=== PATIENT | female | born 1930 | race Caucasian/White ===

== ENCOUNTER 2016-07-02 12:32 | Emergency (ER) | payer MEDICARE, MEDICAID ==
--- NOTE | 2016-07-02 12:48 | ER Document Report ---
ED Medical Screen (RME) - General Stated Complaint: PAIN ALL OVER Notes: 86 yo female c/o pain all over body since last night. pt has hx/o oseoarthritis and postherpatic neuroalgia. pt is on pain management with [facility] pain management. Pt presently on Nucynta for pain. TRAVEL OUTSIDE OF THE [place] IN LAST 30 DAYS: No - Related Data Allergies/Adverse Reactions: codeine [Codeine] Allergy (Severe, Verified 09/21/13 02:56) headache Sulfa (Sulfonamide Antibiotics) Allergy (Verified 09/21/13 02:56) itching Past Medical History - Past Medical History Cardiac Medical History: Reports: Hx Congestive Heart Failure, Hx Coronary Artery Disease, Hx Heart Attack, Hx Hypercholesterolemia, Hx Hypertension Denies: Hx Atrial Fibrillation, Hx Peripheral Vascular Disease, Hx Pulmonary Embolism, Hx Heart Murmur Pulmonary Medical History: Reports: Hx Asthma, Hx Bronchitis, Hx COPD, Hx Pneumonia, Hx Sleep Apnea Denies: Hx Respiratory Failure, Hx Tuberculosis Neurological Medical History: Denies: Hx Cerebrovascular Accident, Hx Seizures Endocrine Medical History: Reports: Hx Diabetes Mellitus Type 2, Hx Hyperthyroidism, Hx Hypothyroidism. Denies: Hx Graves' Disease Renal/ Medical History: Reports: Hx Kidney Stones. Denies: Hx End Stage Renal Disease, Hx Ovarian Cysts, Hx Peritoneal Dialysis, Hx Pelvic Inflammatory Disease Malignancy Medical History: Reports: Hx Breast Cancer. Denies: Hx Cervical Cancer, Hx Leukemia, Hx Lung Cancer, Hx Ovarian Cancer GI Medical History: Reports: Hx Gastroesophageal Reflux Disease. Denies: Hx Crohn's Disease, Hx Hiatal Hernia, Hx Irritable Bowel, Hx Liver Failure, Hx Ulcer Musculoskeltal Medical History: Reports Hx Arthritis, Denies Hx Fibromyalgia, Denies Hx Multiple Sclerosis, Denies Hx Muscular Dystrophy, Reports Hx Musculoskeletal Deformity, Reports Hx Musculoskeletal Trauma Psychiatric Medical History: Reports: Hx Bipolar Disorder, Hx Depression Denies: Hx Dementia, Hx Post Traumatic Stress Disorder, Hx Schizophrenia Traumatic Medical History: Reports: Hx Fractures - right leg(small break) Infectious Medical History: Denies: Hx HIV Past Surgical History: Reports: Hx Adenoidectomy, Hx Appendectomy, Hx Cardiac Catheterization, Hx Cardiac Surgery - Double Bypass, Hx Cholecystectomy, Hx Coronary Artery Bypass Graft - 1996, Hx Hysterectomy, Hx Mastectomy - rt 1994, Hx Orthopedic Surgery - Right Hip replacement, bilateral knee replacements, Hx Tonsillectomy. Denies: Hx Bowel Surgery, Hx Section, Hx Colostomy, Hx Gastric Bypass Surgery, Hx Herniorrhaphy, Hx Pacemaker, Hx Tubal Ligation - Immunizations Immunizations up to date: Yes Hx Diphtheria, Pertussis, Tetanus Vaccination: Yes
[2016-07-02] MEDS ORDERED: PREDNISONE 20 MG TABLET PO ONE (13:34)
--- NOTE | 2016-07-02 13:39 | ER Document Report ---
ED General - General Chief Complaint: Pain All Over Stated Complaint: PAIN ALL OVER Time seen by provider: 13:35 Mode of Arrival: Ambulatory Information source: Patient Notes: 86-year-old female who complains of initially about "pain all over" per further questioning states that she's having chronic discomfort in her right shoulder and burning pain in the left arm which is typical for her postherpetic neuralgia. He reports she's been trying to get off OxyContin and is now seeing [facility] pain management Jered who has prescribed Nucynta the patient says she's been taking that every 6 hours as prescribed. The patient reports chronic cough occasional rattling in her chest which she says is not worse than her baseline. She denies fever, chills, nausea, vomiting, chest pain, abdominal pain, back pain, or syncope. She reports chronic swelling to extremities. She reports poor appetite recently. He reports she has a nebulizer machine at home that she has been using without problems Physical Exam: General: Alert, appears well. HEENT: Normocephalic. Atraumatic. PERRLA. Extraocular movements intact. Oropharynx clear. Neck: Supple. Non-tender. No JVD Respiratory: No respiratory distress. Scattered rhonchi bilaterally breath sounds equal. Cardiovascular: Regular rate and rhythm. Abdominal: Normal Inspection. Soft, non-tender. No distension. Normal Bowel Sounds. Back: Non-tender. No deformity or step off. Extremities: Moves all four extremities. Minimal discomfort to palpation diffusely in the right shoulder prescriptions good active range of motion without increase in discomfort. Left upper extremity only is exquisitely tender to even very light touch on the inner aspect of the upper and lower arm which patient reports typical for her postherpetic neuralgia. No gross deformity is noted that extremity and she is able to move and use it without increased discomfort Neurological: Speech clear mentation clear answers questions appropriately moves all 4 extremities with equal motor function Psychological: Normal affect. Normal Mood. Skin: Warm. Dry. Normal color.am TRAVEL OUTSIDE OF THE [place] IN LAST 30 DAYS: No - Related Data Allergies/Adverse Reactions: codeine [Codeine] Allergy (Severe, Verified 07/02/16 12:47) headache Sulfa (Sulfonamide Antibiotics) Allergy (Verified 07/02/16 12:47) itching Past Medical History - Social History Smoking Status: Never Smoker Chew tobacco use (# tins/day): No Frequency of alcohol use: None Drug Abuse: None Family History: CAD, CVA, DM, Hyperlipidemia, Hypertension Patient has suicidal ideation: No Patient has homicidal ideation: No - Past Medical History Cardiac Medical History: Reports: Hx Congestive Heart Failure, Hx Coronary Artery Disease, Hx Heart Attack, Hx Hypercholesterolemia, Hx Hypertension Denies: Hx Atrial Fibrillation, Hx Peripheral Vascular Disease, Hx Pulmonary Embolism, Hx Heart Murmur Pulmonary Medical History: Reports: Hx Asthma, Hx Bronchitis, Hx COPD, Hx Pneumonia, Hx Sleep Apnea Denies: Hx Respiratory Failure, Hx Tuberculosis Neurological Medical History: Denies: Hx Cerebrovascular Accident, Hx Seizures Endocrine Medical History: Reports: Hx Diabetes Mellitus Type 2, Hx Hyperthyroidism, Hx Hypothyroidism. Denies: Hx Graves' Disease Renal/ Medical History: Reports: Hx Kidney Stones. Denies: Hx End Stage Renal Disease, Hx Ovarian Cysts, Hx Peritoneal Dialysis, Hx Pelvic Inflammatory Disease Malignancy Medical History: Reports: Hx Breast Cancer. Denies: Hx Cervical Cancer, Hx Leukemia, Hx Lung Cancer, Hx Ovarian Cancer GI Medical History: Reports: Hx Gastroesophageal Reflux Disease. Denies: Hx Crohn's Disease, Hx Hiatal Hernia, Hx Irritable Bowel, Hx Liver Failure, Hx Ulcer Musculoskeltal Medical History: Reports Hx Arthritis, Denies Hx Fibromyalgia, Denies Hx Multiple Sclerosis, Denies Hx Muscular Dystrophy, Reports Hx Musculoskeletal Deformity, Reports Hx Musculoskeletal Trauma Psychiatric Medical History: Reports: Hx Bipolar Disorder, Hx Depression Denies: Hx Dementia, Hx Post Traumatic Stress Disorder, Hx Schizophrenia Traumatic Medical History: Reports: Hx Fractures - right leg(small break) Infectious Medical History: Denies: Hx HIV Past Surgical History: Reports: Hx Adenoidectomy, Hx Appendectomy, Hx Cardiac Catheterization, Hx Cardiac Surgery - Double Bypass, Hx Cholecystectomy, Hx Coronary Artery Bypass Graft - 1996, Hx Hysterectomy, Hx Mastectomy - rt 1994, Hx Orthopedic Surgery - Right Hip replacement, bilateral knee replacements, Hx Tonsillectomy. Denies: Hx Bowel Surgery, Hx Section, Hx Colostomy, Hx Gastric Bypass Surgery, Hx Herniorrhaphy, Hx Pacemaker, Hx Tubal Ligation - Immunizations Immunizations up to date: Yes Hx Diphtheria, Pertussis, Tetanus Vaccination: Yes Hx Pneumococcal Vaccination: 09/07/11 Review of Systems - Review of Systems Constitutional: See HPI EENT: denies: Ear pain, Throat pain Cardiovascular: See HPI Respiratory: See HPI Gastrointestinal: See HPI Genitourinary: denies: Burning, Dysuria Musculoskeletal: denies: Back pain Hematologic/Lymphatic: denies: Swollen glands Neurological/Psychological: denies: Weakness, Numbness Physical Exam - Vital signs Vitals: Temp Pulse Resp BP Pulse Ox 98.1 F 66 20 109/57 L 95 07/02/16 12:45 07/02/16 12:45 07/02/16 12:45 07/02/16 12:45 07/02/16 12:45 Course - Re-evaluation Re-evalutation: 07/02/16 14:30 Patient remains stable with no change in respiratory status and does report her arm feels somewhat better now. I believe she would benefit from a steroid Dosepak not only for her and will rest for difficulty but it may also help her postherpetic neuralgia pain as well. Patient is agreeable to this and she will be discharged with instructions to follow with her physician next week - Vital Signs Vital signs: Temp Pulse Resp BP Pulse Ox 98.1 F 66 20 109/57 L 95 07/02/16 12:45 07/02/16 12:45 07/02/16 12:45 07/02/16 12:45 07/02/16 12:45 - Diagnostic Test Radiology reviewed: Reports reviewed Discharge - Discharge Clinical Impression: Postherpetic neuralgia, Bronchitis Condition: Stable Disposition: HOME, SELF-CARE Additional Instructions: Bronchitis You have acute bronchitis. This disease is an infection or inflammation of the air passageways in your lungs. Symptoms usually include cough, low grade fever, shortness of breath, and wheezing. The cough usually persists for a couple of weeks. Most cases of bronchitis get better without antibiotics. We prescribe antibiotics when we believe bacteria are damaging your airways, or if there's high risk the bronchitis will worsen into pneumonia. Increase your fluid intake. A cool mist humidifier may make your lungs more comfortable. An expectorant (cough medicine that loosens phlegm) can help. If you smoke, STOP!!! Recovery from bronchitis can be somewhat slow, but you should see improvement within a day or two. Repeated episodes of bronchitis may result in lung damage -- for example, chronic bronchitis, recurrent pneumonias, or emphysema. Call the doctor if you develop increasing fever, shortness of breath, chest pain, bloody sputum, or otherwise worsen. If you have not improved at all after several days, contact the physician. Prescriptions: Methylprednisolone [Medrol Dosepack (4 mg/Tab) 21 Tab/Dosepak] 4 mg PO ASDIR PRN #21 tab.ds.pk PRN Reason: Referrals: BEAU ALVARES MD [NO LOCAL MD] - Follow up in 3-5 days
[2016-07-02 14:53] VITALS: BP 110/70
== END 2016-07-02 14:54 | disposition home or self-care (01) ==
LOC: ER 12:32
DX: B02.29 Other postherpetic nervous system involvement (principal); J40 Bronchitis, not specified as acute or chronic; R05 Cough; R07.9 Chest pain, unspecified; Z79.899 Other long term (current) drug therapy
CPT/HCPCS: 99283; 71010; A9270; J7512

== ENCOUNTER 2016-09-01 00:28 | Emergency (ER) | payer MEDICARE, MEDICAID ==
[2016-09-01] MEDS ORDERED: ASPIRIN 81 MG TABLET, CHEWABLE PO ONE (00:34)
[2016-09-01] MEDS ORDERED: IPRATROPIUM/ALBUTEROL 0.5-2.5 MG/3 ML AMPUL NEB ONE (01:00)
--- NOTE | 2016-09-01 01:02 | ER Document Report ---
ED General - General Chief Complaint: Shoulder Pain Stated Complaint: DIFFICULTY BREATHING,CHEST PAIN Notes: Patient is an 86-year-old female that comes emergency department with chief complaint of pain in the right side of her chest which is intermittent and sharp that started this evening and also of discomfort with restless legs. Patient also states that she has been itching over her chest and back a lot over the past few days. Patient states both symptoms have calmed down after coming to the emergency department by EMS. Patient also reports a cough for about 2 weeks with "bronchitis", she has a history of COPD, she has an inhaler at home that she has been using, she is on 2 L nasal cannula at night. History includes hypertension, [place], CHF, postherpetic neuralgia. TRAVEL OUTSIDE OF THE [place] IN LAST 30 DAYS: No - Related Data Allergies/Adverse Reactions: codeine [Codeine] Allergy (Severe, Verified 07/02/16 12:47) headache Sulfa (Sulfonamide Antibiotics) Allergy (Verified 07/02/16 12:47) itching Past Medical History - General Information source: Patient, Emergency Med Personnel - Social History Smoking Status: Former Smoker Frequency of alcohol use: None Drug Abuse: None Lives with: Alone - Has home health Family History: CAD, CVA, DM, Hyperlipidemia, Hypertension - Past Medical History Cardiac Medical History: Reports: Hx Congestive Heart Failure, Hx Coronary Artery Disease, Hx Heart Attack, Hx Hypercholesterolemia, Hx Hypertension Denies: Hx Atrial Fibrillation, Hx Peripheral Vascular Disease, Hx Pulmonary Embolism, Hx Heart Murmur Pulmonary Medical History: Reports: Hx Asthma, Hx Bronchitis, Hx COPD, Hx Pneumonia, Hx Sleep Apnea Denies: Hx Respiratory Failure, Hx Tuberculosis Neurological Medical History: Denies: Hx Cerebrovascular Accident, Hx Seizures Endocrine Medical History: Reports: Hx Diabetes Mellitus Type 2, Hx Hyperthyroidism, Hx Hypothyroidism. Denies: Hx Graves' Disease Renal/ Medical History: Reports: Hx Kidney Stones. Denies: Hx End Stage Renal Disease, Hx Ovarian Cysts, Hx Peritoneal Dialysis, Hx Pelvic Inflammatory Disease Malignancy Medical History: Reports: Hx Breast Cancer. Denies: Hx Cervical Cancer, Hx Leukemia, Hx Lung Cancer, Hx Ovarian Cancer GI Medical History: Reports: Hx Gastroesophageal Reflux Disease. Denies: Hx Crohn's Disease, Hx Hiatal Hernia, Hx Irritable Bowel, Hx Liver Failure, Hx Ulcer Musculoskeltal Medical History: Reports Hx Arthritis, Denies Hx Fibromyalgia, Denies Hx Multiple Sclerosis, Denies Hx Muscular Dystrophy, Reports Hx Musculoskeletal Deformity, Reports Hx Musculoskeletal Trauma Psychiatric Medical History: Reports: Hx Bipolar Disorder, Hx Depression Denies: Hx Dementia, Hx Post Traumatic Stress Disorder, Hx Schizophrenia Traumatic Medical History: Reports: Hx Fractures - right leg(small break) Infectious Medical History: Denies: Hx HIV Past Surgical History: Reports: Hx Adenoidectomy, Hx Appendectomy, Hx Cardiac Catheterization, Hx Cardiac Surgery - Double Bypass, Hx Cholecystectomy, Hx Coronary Artery Bypass Graft - 1996, Hx Hysterectomy, Hx Mastectomy - rt 1994, Hx Orthopedic Surgery - Right Hip replacement, bilateral knee replacements, Hx Tonsillectomy. Denies: Hx Bowel Surgery, Hx Section, Hx Colostomy, Hx Gastric Bypass Surgery, Hx Herniorrhaphy, Hx Pacemaker, Hx Tubal Ligation - Immunizations Immunizations up to date: Yes Hx Diphtheria, Pertussis, Tetanus Vaccination: Yes Hx Pneumococcal Vaccination: 09/07/11 Review of Systems - Review of Systems Constitutional: No symptoms reported EENT: No symptoms reported Cardiovascular: See HPI Respiratory: See HPI Gastrointestinal: No symptoms reported Genitourinary: No symptoms reported Female Genitourinary: No symptoms reported Musculoskeletal: No symptoms reported Skin: See HPI Hematologic/Lymphatic: No symptoms reported Neurological/Psychological: No symptoms reported Physical Exam - Vital signs Vitals: Pulse Ox 88 L 09/01/16 00:38 Interpretation: Normal - General General appearance: Appears well, Alert In distress: None - Patient is alert and actually well-appearing - HEENT Head: Normocephalic, Atraumatic Eyes: Normal Pupils: PERRL - Respiratory Respiratory status: No respiratory distress Chest status: Tender - Notably over the mid right anterior chest wall Breath sounds: Nonproductive cough - Occasional nonproductive cough, Wheezing - End expiratory wheezes heard throughout Chest palpation: Normal - Cardiovascular Rhythm: Regular Heart sounds: Normal auscultation Murmur: No - Abdominal Inspection: Normal Distension: No distension Bowel sounds: Normal Tenderness: Nontender Organomegaly: No organomegaly - Back Back: Normal, Nontender - Extremities General upper extremity: Normal inspection, Nontender, Normal color, Normal ROM , Normal temperature General lower extremity: Normal inspection, Nontender, Normal color, Normal ROM , Normal temperature, Normal weight bearing. No: Jazmyn's sign - Neurological Neuro grossly intact: Yes Cognition: Normal Orientation: AAOx4 Manjinder Coma Scale Eye Opening: Spontaneous Proctor Coma Scale Verbal: Oriented Manjinder Coma Scale Motor: Obeys Commands Proctor Coma Scale Total: 15 Speech: Normal Motor strength normal: LUE, RUE, LLE, RLE Sensory: Normal - Psychological Associated symptoms: Normal affect, Normal mood - Skin Skin Temperature: Warm Skin Moisture: Dry Skin Color: Normal Course - Re-evaluation Re-evalutation: EKG sinus rhythm with no T-wave inversions or ST segment changes in consecutive leads, chest x-ray unremarkable. Patient with right-sided chest pain which is worse with palpation and movement, occasional cough, initially wheezing on examination with end expiratory wheezes, this resolved after breathing treatment. Cardiac enzymes cycled. Patient requesting to leave. Patient ambulated without oxygen, pulse oxygenation dropped to 93%, patient performed this quite well. Patient still requesting to leave. I do not see a rash, there is a possibility that patient may develop shingles based on her complaint, however there is no evidence of this at this time, needs close follow -up. I called and spoke with patient's primary care provider, Dr. Vences. Patient will be given azithromycin, prednisone, instructed to be seen in the office on Sunday, instructed to return immediately if she worsens in anyway, patient is very agreeable with this and states satisfaction with the plan. - Vital Signs Vital signs: Temp Pulse Resp BP Pulse Ox 97.9 F 21 H 126/95 H 94 09/01/16 01:00 09/01/16 06:00 09/01/16 05:31 09/01/16 05:31 - Laboratory Result Diagrams: 09/01/16 02:15 09/01/16 02:15 Laboratory results interpreted by me: 09/01/16 09/01/16 02:15 02:15 Hgb 11.8 L Hct 35.7 L RDW 16.1 H BUN 37 H Creatinine 1.34 H Est GFR ( Amer) 45 L Est GFR (Non-Af Amer) 38 L Discharge - Discharge Clinical Impression: Wheezing, Cough, Right-sided chest pain Condition: Stable Disposition: HOME, SELF-CARE Additional Instructions: Chest x-ray, workup did not show any acute abnormalities, examination is consistent with upper respiratory infection/bronchitis. Take the prednisone and azithromycin as directed, please see your primary care provider on Sunday and a close follow-up. Please return immediately to the emergency department if you worsen in any way. Prescriptions: Azithromycin [Zithromax 250 mg Tablet] 250 mg PO ASDIR PRN #6 tablet PRN Reason: Prednisone 40 mg PO DAILY #10 tablet Referrals: DENICE MORRIS MD [Primary Care Provider] - 09/04/16
[2016-09-01 02:40] LABS: ABSOLUTE BASOPHILS # (AUTO) 0.1 10^3/uL (0.0-0.2); ABSOLUTE LYMPHOCYTES (AUTO) 2.2 10^3/uL (0.5-4.7); ABSOLUTE MONOCYTES (AUTO) 0.5 10^3/uL (0.1-1.4); ABSOLUTE NEUT (AUTO) 5.1 10^3/uL (1.7-8.2); BASOPHILS % (AUTO) 0.9 % (0-2); EOSINOPHILS % (AUTO) 0.5 % (0-6); HEMATOCRIT 35.7 % (36.0-47.0); HEMOGLOBIN 11.8 g/dL (12.0-15.5); HGB HCT DIFFERENCE -0.3; LYMPHOCYTES % (AUTO) 27.5 % (13-45); MEAN CORPUSCULAR HGB CONC 33.1 g/dL (32.0-36.0); MEAN CORPUSCULAR VOLUME 88 fl (80-97); MONOCYTES % (AUTO) 6.4 % (3-13); RED BLOOD COUNT 4.08 10^6/uL (3.72-5.28); RED CELL DISTRIBUTION WIDTH 16.1 % (11.5-14.0); SEGMENTED NEUTROPHILS % (AUTO) 64.7 % (42-78); WHITE BLOOD COUNT 7.9 10^3/uL (4.0-10.5)
[2016-09-01 02:50] LABS: ALANINE AMINOTRANSFERASE 23 U/L (9-52); ALKALINE PHOSPHATASE 81 U/L (38-126); ANION GAP 15 (5-19); ASPARTATE AMINO TRANSFERASE 31 U/L (14-36); BILIRUBIN,TOTAL 0.5 mg/dL (0.2-1.3); BLOOD UREA NITROGEN 37 mg/dL (7-20); CALCIUM 9.5 mg/dL (8.4-10.2); CARBON DIOXIDE 26 mmol/L (22-30); CHLORIDE 102 mmol/L (98-107); CREATINE KINASE 102 U/L (30-135); CREATININE RESULT 1.34 mg/dL (0.52-1.25); GLUCOSE 101 mg/dL (75-110); POTASSIUM 4.2 mmol/L (3.6-5.0); SODIUM 142.9 mmol/L (137-145); TOTAL PROTEIN 6.7 g/dL (6.3-8.2)
[2016-09-01 03:01] LABS: CREATINE KINASE MB 1.28 ng/mL (<4.55)
[2016-09-01] MEDS ORDERED: PREDNISONE 20 MG TABLET PO ONE (03:03)
[2016-09-01 03:06] LABS: TROPONIN I < 0.012 ng/mL
[2016-09-01] MEDS ORDERED: OXYCODONE HCL IR 5 MG TABLET PO ONE (03:28)
[2016-09-01 08:06] VITALS: BP 130/90
--- NOTE | 2016-09-01 19:41 | EKG REPORT ---
SEVERITY:- ABNORMAL ECG - SINUS RHYTHM NONSPECIFIC INTRAVENTRICULAR CONDUCTION DELAY : Confirmed by: Caitlin Castanon 01-Sep-2016 19:41:15
== END 2016-09-01 08:04 | disposition home or self-care (01) ==
LOC: ER 00:28
DX: R06.2 Wheezing (principal); R05 Cough; R07.9 Chest pain, unspecified; I50.9 Heart failure, unspecified; I25.10 Atherosclerotic heart disease of native coronary artery without angina pectoris; E78.00 Pure hypercholesterolemia, unspecified; I11.0 Hypertensive heart disease with heart failure; J45.909 Unspecified asthma, uncomplicated; J44.9 Chronic obstructive pulmonary disease, unspecified; E11.9 Type 2 diabetes mellitus without complications; Z85.3 Personal history of malignant neoplasm of breast; Z90.49 Acquired absence of other specified parts of digestive tract; Z87.442 Personal history of urinary calculi; Z95.1 Presence of aortocoronary bypass graft; Z96.653 Presence of artificial knee joint, bilateral; Z90.11 Acquired absence of right breast and nipple; Z96.641 Presence of right artificial hip joint; Z90.710 Acquired absence of both cervix and uterus; Z88.2 Allergy status to sulfonamides; Z88.6 Allergy status to analgesic agent; I25.2 Old myocardial infarction
CPT/HCPCS: 93005; 94640; 99285; 36415; 82553; 82550; 85025; 80053; 84484; 71010; 93010; A9270 ×4; J7512; J7620

== ENCOUNTER 2016-09-15 17:12 | Inpatient (IN) | payer MEDICARE, MEDICAID ==
[2016-09-15] MEDS ORDERED: DIPHENHYDRAMINE HCL 25 MG CAPSULE PO PRN (20:24)
[2016-09-15] MEDS ORDERED: METFORMIN HCL PO SCH (20:30)
[2016-09-15] MEDS ORDERED: (PENDING PHARMACY ID) (Losartan Potassium [Losartan Potassium] 100 MG) PO SCH (20:30)
[2016-09-15] MEDS ORDERED: LINAGLIPTIN PO SCH (20:30)
[2016-09-15] MEDS ORDERED: DEXTROSE 40% GEL 15 GM TUBE PO PRN ×2 (20:56)
[2016-09-15] MEDS ORDERED: DEXTROSE 50%-WATER 25 GM/50 ML DISP.SYRIN IV PRN ×2 (20:56)
[2016-09-15] MEDS ORDERED: GLUCAGON,HUMAN RECOMB 1 MG INJ IM PRN (20:56)
--- NOTE | 2016-09-15 20:56 | PDOC H&P ---
History of Present Illness Admission Date/PCP: 09/15/16 18:47 DENICE MORRIS MD History of Present Illness: SINAN MONTGOMERY is a 86 year old female, she came to the office today because of shortness of breath, wheezing she also have diffuse erythematous rash involving the torso and also the extremities including the upper extremities and lower extremities, there are also areas of blistering, the rash is suspicious for hypersensitivity reaction probably to one the medication she is taking, the only new medication that she recently started taking in the last couple of weeks to months was morphine, she follows with pain management for the treatment of her chronic pain and she is on oral morphine and also fentanyl patch which is a morphine derivative. I suspect the morphine could be the trigger for this diffuse rash, there is associated severe pruritus, she is itching profusely in the office with areas of scratch henao. 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 Past Medical History Cardiac Medical History: Reports: Congestive Heart Failure, Coronary Artery Disease, Myocardial Infarction, Hyperlipidema, Hypertension Pulmonary Medical History: Reports: Asthma, Bronchitis, Chronic Obstructive Pulmonary Disease (COPD), Pneumonia, Sleep Apnea Endocrine Medical History: Reports: Diabetes Mellitus Type 2, Hyperthyroidism, Hypothyroidism Malignancy Medical History: Reports: Breast Cancer GI Medical History: Reports: Gastroesophageal Reflux Disease Musculoskeltal Medical History: Reports: Arthritis Psychiatric Medical History: Reports: Bipolar Disorder, Depression Hematology: Reports: Anemia Past Surgical History Past Surgical History: Reports: Adenoidectomy, Appendectomy, Cardiac Catheterization, Cholecystectomy, Coronary Artery Bypass Graft - 1996, Hysterectomy, Mastectomy - rt 1994, Orthopedic Surgery - Right Hip replacement, bilateral knee replacements, Tonsillectomy Social History Smoking Status: Former Smoker Frequency of Alcohol Use: Occasional Hx Recreational Drug Use: No Hx Prescription Drug Abuse: No Family History Family History: CAD, CVA, DM, Hyperlipidemia, Hypertension Parental Family History Reviewed: Yes Children Family History Reviewed: Yes Sibling(s) Family History Reviewed.: Yes Medication/Allergy Home Medications: Loratadine [Claritin 10 mg Tablet] 10 mg PO DAILY 03/05/13 Pramipexole Di-HCl [Mirapex 0.25 mg Tablet] 0.25 mg PO QHS 03/05/13 Losartan Potassium 100 mg PO DAILY 09/12/14 Isosorbide Mononitrate [Imdur 30 mg Tablet.er] 30 mg PO DAILY 04/17/15 Duloxetine HCl [Cymbalta] 60 mg PO BID 08/27/15 Linagliptin/Metformin HCl [Jentadueto 2.5 mg-1000 mg Tab] 1 tab PO BID 12/18/15 Albuterol Sulfate [Ventolin 0.083% Neb 2.5 mg/3 mL Ampul] 2.5 mg NEB [id number] PRN 09/15/16 Aspirin [Aspirin 81 mg Chewable Tablet] 81 mg PO DAILY 09/15/16 Magnesium Oxide [Mag-Ox 400 mg Tablet] 400 mg PO DAILY 09/15/16 Metoprolol Tartrate [Lopressor 25 mg Tablet] 25 mg PO DAILY 09/15/16 Prednisone 20 mg PO DAILY #0 tablet 09/18/16 Allergies/Adverse Reactions: codeine [Codeine] Allergy (Severe, Verified 07/02/16 12:47) headache Sulfa (Sulfonamide Antibiotics) Allergy (Verified 07/02/16 12:47) itching Review of Systems Eyes: ABSENT: visual disturbances Ears: ABSENT: hearing changes Cardiovascular: PRESENT: dyspnea on exertion Respiratory: PRESENT: dyspnea Gastrointestinal: ABSENT: abdominal pain, constipation, diarrhea, hematemesis, hematochezia, nausea, vomiting Genitourinary: ABSENT: dysuria, hematuria Musculoskeletal: ABSENT: joint swelling Integumentary: PRESENT: pruritus, rash Neurological: ABSENT: abnormal gait, abnormal speech, confusion, dizziness, focal weakness, syncope Psychiatric: ABSENT: anxiety, depression, homidical ideation, suicidal ideation Endocrine: ABSENT: cold intolerance, heat intolerance, menstrual abnormalities, polydipsia, polyuria Hematologic/Lymphatic: ABSENT: easy bleeding, easy bruising, lymphadenopathy Physical Exam Vital Signs: Temp Pulse Resp BP Pulse Ox 98.0 F 93 18 120/102 H 94 09/15/16 17:59 09/15/16 17:59 09/15/16 17:59 09/15/16 17:59 09/15/16 17:59 General appearance: PRESENT: severe distress Head exam: PRESENT: atraumatic, normocephalic Eye exam: PRESENT: conjunctiva pink, EOMI, PERRLA Neck exam: PRESENT: full ROM Respiratory exam: PRESENT: wheezes Cardiovascular exam: PRESENT: RRR, +S1, +S2 Vascular exam: PRESENT: normal capillary refill GI/Abdominal exam: PRESENT: normal bowel sounds, soft Rectal exam: PRESENT: deferred Neurological exam: PRESENT: alert, CN II-XII grossly intact Skin exam: PRESENT: erythema Assessment & Plan - Diagnosis (1) Acute exacerbation of chronic obstructive pulmonary disease (COPD) Is this a current diagnosis for this admission?: YesPlan: She is admitted because of acute COPD exacerbation, will be treated with IV Solu -Medrol, bronchodilators (2) Hypersensitivity disorder Qualifiers: Encounter type: initial encounter Qualified Code(s): T78.40XA - Allergy, unspecified, initial encounter Is this a current diagnosis for this admission?: Yes (3) Diabetes mellitus Qualifiers: Diabetes mellitus type: type 2 Diabetes mellitus complication status: with neurologic complications Diabetes mellitus complication detail: with polyneuropathy Diabetes mellitus detention insulin use: without detention use Qualified Code(s): E11.42 - Type 2 diabetes mellitus with diabetic polyneuropathy; Z79.4 - shelter (current) use of insulin Is this a current diagnosis for this admission?: Yes
[2016-09-15 21:40] LABS: ABSOLUTE BASOPHILS # (AUTO) 0.1 10^3/uL (0.0-0.2); ABSOLUTE EOSINOPHILS # (AUTO) 0.4 10^3/uL (0.0-0.6); ABSOLUTE LYMPHOCYTES (AUTO) 1.3 10^3/uL (0.5-4.7); ABSOLUTE MONOCYTES (AUTO) 0.4 10^3/uL (0.1-1.4); EOSINOPHILS % (AUTO) 3.5 % (0-6); HEMATOCRIT 35.5 % (36.0-47.0); HEMOGLOBIN 11.8 g/dL (12.0-15.5); HGB HCT DIFFERENCE -0.1; MEAN CORPUSCULAR HEMOGLOBIN 29.5 pg (27.0-33.4); MEAN CORPUSCULAR HGB CONC 33.1 g/dL (32.0-36.0); MEAN CORPUSCULAR VOLUME 89 fl (80-97); MONOCYTES % (AUTO) 4.2 % (3-13); RED BLOOD COUNT 3.99 10^6/uL (3.72-5.28); RED CELL DISTRIBUTION WIDTH 15.3 % (11.5-14.0); SEGMENTED NEUTROPHILS % (AUTO) 78.3 % (42-78); WHITE BLOOD COUNT 10.3 10^3/uL (4.0-10.5)
[2016-09-15] MEDS: METHYLPREDNISOLONE INJ 125 MG/2 ML SDV IV SCH (21:45)
[2016-09-15 21:52] LABS: PROTHROMBIN TIME 13.2 SEC (11.4-15.4)
[2016-09-15 21:53] LABS: PARTIAL THROMBOPLASTIN TIME 26.3 SEC (23.5-35.8)
[2016-09-15] MEDS ORDERED: METOPROLOL TARTRATE 25 MG TABLET PO ONE (22:00)
[2016-09-15 22:03] LABS: ALANINE AMINOTRANSFERASE 22 U/L (9-52); ALKALINE PHOSPHATASE 90 U/L (38-126); AMYLASE 108 U/L (30-110); ANION GAP 14 (5-19); ASPARTATE AMINO TRANSFERASE 25 U/L (14-36); BILIRUBIN,DIRECT 0.2 mg/dL (0.0-0.4); BILIRUBIN,TOTAL 0.6 mg/dL (0.2-1.3); BLOOD UREA NITROGEN 33 mg/dL (7-20); CALCIUM 9.8 mg/dL (8.4-10.2); CARBON DIOXIDE 26 mmol/L (22-30); CHLORIDE 101 mmol/L (98-107); CREATINE KINASE 73 U/L (30-135); GLUCOSE 124 mg/dL (75-110); LIPASE 80.9 U/L (23-300); MAGNESIUM 1.7 mg/dL (1.6-2.3); POTASSIUM 4.6 mmol/L (3.6-5.0); SODIUM 140.6 mmol/L (137-145); TOTAL PROTEIN 6.3 g/dL (6.3-8.2)
[2016-09-15 22:33] LABS: THYROID STIMULATING HORMONE 1.4 uIU/mL (0.47-4.68)
[2016-09-15] MEDS ORDERED: ACETAMINOPHEN 325 MG TABLET PO PRN (23:29)
[2016-09-15] MEDS: IPRATROPIUM/ALBUTEROL 0.5-2.5 MG/3 ML AMPUL NEB SCH (23:44)
[2016-09-15] MEDS: DULOXETINE HCL 30 MG CAPSULE.DR PO SCH (23:59)
[2016-09-16] MEDS: PRAMIPEXOLE DI-HCL 0.25 MG TABLET PO SCH ×2 (00:02→22:03)
[2016-09-16 01:32] LABS: APPEARANCE,URINE CLEAR; BILIRUBIN,URINE NEGATIVE (NEGATIVE); GLUCOSE, URINE NEGATIVE (NEGATIVE); KETONES,URINE NEGATIVE (NEGATIVE); LEUKOCYTE ESTERASE,URINE TRACE (NEGATIVE); NITRITE,URINE NEGATIVE (NEGATIVE); PROTEIN,URINE NEGATIVE (NEGATIVE); URINE SPECIFIC GRAVITY 1.014; UROBILINOGEN,URINE NEGATIVE mg/dL (<2.0)
[2016-09-16] MEDS: IPRATROPIUM/ALBUTEROL 0.5-2.5 MG/3 ML AMPUL NEB SCH ×6 (02:01→20:13)
[2016-09-16] MEDS: OXYCODONE HCL IR 5 MG TABLET PO PRN ×2 (02:51→09:45)
[2016-09-16] MEDS: METHYLPREDNISOLONE INJ 125 MG/2 ML SDV IV SCH ×3 (05:48→22:02)
[2016-09-16 06:06] LABS: ANION GAP 13 (5-19); BLOOD UREA NITROGEN 32 mg/dL (7-20); CALCIUM 9.9 mg/dL (8.4-10.2); CARBON DIOXIDE 24 mmol/L (22-30); CHLORIDE 103 mmol/L (98-107); CREATININE RESULT 1.14 mg/dL (0.52-1.25); GLUCOSE 218 mg/dL (75-110); POTASSIUM 4.5 mmol/L (3.6-5.0); SODIUM 139.9 mmol/L (137-145)
[2016-09-16] MEDS: ENOXAPARIN SODIUM INJ 40 MG/0.4 ML DISP.SYRIN SUBCUT SCH (09:42)
[2016-09-16] MEDS: INSULIN LISPRO 100 UNIT/ML 3 ML VIAL SUBCUT PRN ×3 (09:42→22:12)
[2016-09-16] MEDS: ASPIRIN 81 MG TABLET, CHEWABLE PO SCH (09:43)
[2016-09-16] MEDS: DULOXETINE HCL 30 MG CAPSULE.DR PO SCH ×2 (09:43→22:02)
[2016-09-16] MEDS: METFORMIN HCL 500 MG TABLET PO SCH ×2 (09:44→17:05)
[2016-09-16] MEDS: LOSARTAN POTASSIUM 50 MG TABLET PO SCH (09:44)
[2016-09-16] MEDS: MAGNESIUM OXIDE 400 MG TABLET PO SCH (09:46)
[2016-09-16] MEDS: LORATADINE 10 MG TABLET PO SCH (09:46)
[2016-09-16] MEDS: METOPROLOL TARTRATE 25 MG TABLET PO SCH (09:46)
[2016-09-16] MEDS: ISOSORBIDE MONONITRATE 30 MG TAB.ER.24H PO SCH (09:47)
[2016-09-16] MEDS: SITAGLIPTIN PHOSPHATE 25 MG TABLET PO SCH ×2 (09:49→17:05)
--- NOTE | 2016-09-16 10:26 | EKG REPORT ---
SEVERITY:- ABNORMAL ECG - SINUS RHYTHM FIRST DEGREE AV BLOCK : Confirmed by: Boyd Bob MD 16-Sep-2016 10:26:03
--- NOTE | 2016-09-16 10:55 | PDOC PROGRESS REPORT ---
Subjective Progress Note for:: 09/16/16 Subjective:: This is a 85-year-old female is with a significant medical problem admitted by Dr. Holland yesterday the some follow-up or drug reactions. The according to the patient's cc the pain management and patient's the oxycodone was changed to the morphine that and after that the patient started developing this rash and itchy. Patient's also a history of the singles and the patient's worry about that to but the patient's address looks like is more like a drug reactions. I don't see any blisters. Since was already started IV steroid and when necessary Benadryl. Patient's was taking the oxycodone for last 15 years Physical Exam Vital Signs: Temp Pulse Resp BP Pulse Ox 98.0 F 81 16 125/62 98 09/16/16 07:50 09/16/16 08:55 09/16/16 08:55 09/16/16 07:50 09/16/16 08:55 Intake & Output 09/15/16 09/16/16 09/17/16 06:59 06:59 06:59 Intake Total 102 Output Total 0 Balance 102 Weight 93.2 kg General appearance: PRESENT: no acute distress, well-developed, well-nourished Head exam: PRESENT: atraumatic, normocephalic Eye exam: PRESENT: conjunctiva pink, EOMI, PERRLA. ABSENT: scleral icterus Ear exam: PRESENT: normal external ear exam Mouth exam: PRESENT: moist, tongue midline Neck exam: PRESENT: full ROM. ABSENT: carotid bruit, JVD, lymphadenopathy, thyromegaly Cardiovascular exam: PRESENT: RRR. ABSENT: diastolic murmur, rubs, systolic murmur Pulses: PRESENT: normal dorsalis pedis pul, +2 pedal pulses bilateral Vascular exam: PRESENT: normal capillary refill GI/Abdominal exam: PRESENT: normal bowel sounds, soft. ABSENT: distended, guarding, mass, organolmegaly, rebound, tenderness Rectal exam: PRESENT: deferred Additional comments: erthymatous rash on back and front Neurological exam: PRESENT: alert, awake, oriented to person, oriented to place , oriented to time, oriented to situation, CN II-XII grossly intact. ABSENT: motor sensory deficit Psychiatric exam: PRESENT: appropriate affect, normal mood. ABSENT: homicidal ideation, suicidal ideation Skin exam: PRESENT: dry, intact, warm. ABSENT: cyanosis, rash Results Laboratory Results: 09/15/16 21:20 09/16/16 03:46 09/15/16 09/15/16 09/15/16 21:20 21:20 21:20 WBC 10.3 RBC 3.99 Hgb 11.8 L Hct 35.5 L MCV 89 MCH 29.5 MCHC 33.1 RDW 15.3 H Plt Count 234 Seg Neutrophils % 78.3 H Lymphocytes % 13.0 Monocytes % 4.2 Eosinophils % 3.5 Basophils % 1.0 Absolute Neutrophils 8.0 Absolute Lymphocytes 1.3 Absolute Monocytes 0.4 Absolute Eosinophils 0.4 Absolute Basophils 0.1 Sodium 140.6 Potassium 4.6 Chloride 101 Carbon Dioxide 26 Anion Gap 14 BUN 33 H Creatinine 1.20 Est GFR ( Amer) 52 L Est GFR (Non-Af Amer) 43 L Glucose 124 H Calcium 9.8 Magnesium 1.7 Total Bilirubin 0.6 AST 25 ALT 22 Alkaline Phosphatase 90 Ammonia Total Protein 6.3 Albumin 4.0 Amylase 108 Lipase 80.9 TSH 1.40 Free T4 1.07 Urine Color Urine Appearance Urine pH Ur Specific [place] Urine Protein Urine Glucose (UA) Urine Ketones Urine Blood Urine Nitrite Ur Leukocyte Esterase Urine WBC (Auto) 09/15/16 09/16/16 09/16/16 21:20 00:35 03:46 WBC RBC Hgb Hct MCV MCH MCHC RDW Plt Count Seg Neutrophils % Lymphocytes % Monocytes % Eosinophils % Basophils % Absolute Neutrophils Absolute Lymphocytes Absolute Monocytes Absolute Eosinophils Absolute Basophils Sodium 139.9 Potassium 4.5 Chloride 103 Carbon Dioxide 24 Anion Gap 13 BUN 32 H Creatinine 1.14 Est GFR ( Amer) 55 L Est GFR (Non-Af Amer) 45 L Glucose 218 H Calcium 9.9 Magnesium Total Bilirubin AST ALT Alkaline Phosphatase Ammonia < 8.7 L Total Protein Albumin Amylase Lipase TSH Free T4 Urine Color YELLOW Urine Appearance CLEAR Urine pH 8.0 Ur Specific [place] 1.014 Urine Protein NEGATIVE Urine Glucose (UA) NEGATIVE Urine Ketones NEGATIVE Urine Blood NEGATIVE Urine Nitrite NEGATIVE Ur Leukocyte Esterase TRACE H Urine WBC (Auto) 2 09/15/16 09/15/16 09/16/16 21:20 21:20 03:46 Creatine Kinase 73 80 Troponin I < 0.012 03/09/16/16 09/16/16 03:46 09:26 09:26 Creatine Kinase 72 Troponin I < 0.012 < 0.012 Impressions: Chest X-Ray 09/15/16 00:00 IMPRESSION: NO ACUTE CARDIOPULMONARY PROCESS. NO SIGNIFICANT CHANGE FROM PRIOR STUDY. Assessment & Plan - Diagnosis (1) Acute exacerbation of chronic obstructive pulmonary disease (COPD) Is this a current diagnosis for this admission?: YesPlan: Continues the current IV Solu-Medrol and nebulizer treatments (2) Hypersensitivity disorder Qualifiers: Encounter type: initial encounter Qualified Code(s): T78.40XA - Allergy, unspecified, initial encounter Plan: Is likely a drug reactions continues to Solu-Medrol and also add the Zyrtec and the Pepcid. 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 Patient used to take for a long time and obviously possible maybe a side effect with the morphine we cannot use it - Time Time Spent with patient: 15-24 minutes Medications reviewed and adjusted accordingly: Yes Anticipated discharge: Home Within: Other - Inpatient Certification Medical Necessity: Need Close Monitoring Due to Risk of Patient Decompensation Post Hospital Care: D/C Security Sales Manager Documentation - Plan Summary Plan Summary: Continues the current medications continues close monitor the patient's
[2016-09-16] MEDS: CETIRIZINE 10 MG TABLET PO SCH (11:40)
[2016-09-16] MEDS: FAMOTIDINE 20 MG TABLET PO SCH ×2 (11:40→22:11)
[2016-09-16] MEDS: VALACYCLOVIR HCL 500 MG TABLET PO SCH ×2 (15:24→22:03)
[2016-09-16] MEDS: OXYCODONE HCL IR 5 MG TABLET PO SCH ×3 (15:25→22:02)
[2016-09-17] MEDS: IPRATROPIUM/ALBUTEROL 0.5-2.5 MG/3 ML AMPUL NEB SCH ×4 (02:26→19:56)
[2016-09-17] MEDS: OXYCODONE HCL IR 5 MG TABLET PO SCH ×6 (03:02→21:50)
[2016-09-17] MEDS: METHYLPREDNISOLONE INJ 125 MG/2 ML SDV IV SCH (06:50)
[2016-09-17] MEDS: VALACYCLOVIR HCL 500 MG TABLET PO SCH ×3 (06:50→21:50)
[2016-09-17 07:01] LABS: ABSOLUTE LYMPHOCYTES (AUTO) 0.9 10^3/uL (0.5-4.7); ABSOLUTE MONOCYTES (AUTO) 0.1 10^3/uL (0.1-1.4); ABSOLUTE NEUT (AUTO) 11.6 10^3/uL (1.7-8.2); HEMATOCRIT 33.8 % (36.0-47.0); HEMOGLOBIN 11.2 g/dL (12.0-15.5); HGB HCT DIFFERENCE -0.2; LYMPHOCYTES % (AUTO) 6.8 % (13-45); MEAN CORPUSCULAR HEMOGLOBIN 29.3 pg (27.0-33.4); MEAN CORPUSCULAR HGB CONC 33.1 g/dL (32.0-36.0); MEAN CORPUSCULAR VOLUME 89 fl (80-97); MONOCYTES % (AUTO) 1.2 % (3-13); RED BLOOD COUNT 3.82 10^6/uL (3.72-5.28); RED CELL DISTRIBUTION WIDTH 15.4 % (11.5-14.0); WHITE BLOOD COUNT 12.6 10^3/uL (4.0-10.5)
[2016-09-17 07:21] LABS: ANION GAP 14 (5-19); BLOOD UREA NITROGEN 41 mg/dL (7-20); CALCIUM 9.8 mg/dL (8.4-10.2); CARBON DIOXIDE 22 mmol/L (22-30); CHLORIDE 101 mmol/L (98-107); CREATININE RESULT 1.43 mg/dL (0.52-1.25); GLUCOSE 212 mg/dL (75-110); POTASSIUM 4.6 mmol/L (3.6-5.0); SODIUM 137.3 mmol/L (137-145)
[2016-09-17] MEDS: ENOXAPARIN SODIUM INJ 40 MG/0.4 ML DISP.SYRIN SUBCUT SCH (09:31)
[2016-09-17] MEDS: INSULIN LISPRO 100 UNIT/ML 3 ML VIAL SUBCUT PRN ×3 (09:31→21:52)
[2016-09-17] MEDS: DULOXETINE HCL 30 MG CAPSULE.DR PO SCH ×2 (09:33→21:50)
[2016-09-17] MEDS: LOSARTAN POTASSIUM 50 MG TABLET PO SCH (09:33)
[2016-09-17] MEDS: METFORMIN HCL 500 MG TABLET PO SCH ×2 (09:34→18:28)
[2016-09-17] MEDS: LORATADINE 10 MG TABLET PO SCH (09:35)
[2016-09-17] MEDS: MAGNESIUM OXIDE 400 MG TABLET PO SCH (09:36)
[2016-09-17] MEDS: ISOSORBIDE MONONITRATE 30 MG TAB.ER.24H PO SCH (09:36)
[2016-09-17] MEDS: METOPROLOL TARTRATE 25 MG TABLET PO SCH (09:36)
[2016-09-17] MEDS: SITAGLIPTIN PHOSPHATE 25 MG TABLET PO SCH ×2 (09:37→18:27)
[2016-09-17] MEDS: ASPIRIN 81 MG TABLET, CHEWABLE PO SCH (09:37)
[2016-09-17] MEDS ORDERED: METHYLPREDNISOLONE INJ 125 MG/2 ML SDV IV SCH (09:38)
[2016-09-17] MEDS ORDERED: CETIRIZINE 10 MG TABLET PO SCH (10:00)
--- NOTE | 2016-09-17 10:21 | PDOC PROGRESS REPORT ---
Subjective Progress Note for:: 09/17/16 Subjective:: Patient is feeling much better and rash is improving Patient's choice denied any shortness of the breath denied any chest pain Physical Exam Vital Signs: Temp Pulse Resp BP Pulse Ox 97.1 F 104 H 16 104/46 L 99 09/17/16 04:38 09/17/16 07:00 09/17/16 04:38 09/17/16 04:38 09/17/16 04:38 Intake & Output 09/16/16 09/17/16 09/18/16 06:59 06:59 06:59 Intake Total 102 1998 Output Total 0 Balance 102 1998 Weight 93.2 kg 93.9 kg General appearance: PRESENT: no acute distress, well-developed, well-nourished Head exam: PRESENT: atraumatic, normocephalic Eye exam: PRESENT: conjunctiva pink, EOMI, PERRLA. ABSENT: scleral icterus Ear exam: PRESENT: normal external ear exam Mouth exam: PRESENT: moist, tongue midline Neck exam: PRESENT: full ROM. ABSENT: carotid bruit, JVD, lymphadenopathy, thyromegaly Cardiovascular exam: PRESENT: RRR. ABSENT: diastolic murmur, rubs, systolic murmur Pulses: PRESENT: normal dorsalis pedis pul, +2 pedal pulses bilateral Vascular exam: PRESENT: normal capillary refill GI/Abdominal exam: PRESENT: normal bowel sounds, soft. ABSENT: distended, guarding, mass, organolmegaly, rebound, tenderness Rectal exam: PRESENT: deferred Neurological exam: PRESENT: alert, awake, oriented to person, oriented to place , oriented to time, oriented to situation, CN II-XII grossly intact. ABSENT: motor sensory deficit Psychiatric exam: PRESENT: appropriate affect, normal mood. ABSENT: homicidal ideation, suicidal ideation Skin exam: PRESENT: rash. ABSENT: cyanosis Additional comments: all rash is resolving Results Laboratory Results: 09/17/16 06:20 09/17/16 06:20 09/16/16 09/17/16 09/17/16 00:35 06:20 06:20 WBC 12.6 H RBC 3.82 Hgb 11.2 L Hct 33.8 L MCV 89 MCH 29.3 MCHC 33.1 RDW 15.4 H Plt Count 264 Seg Neutrophils % 92.0 H Lymphocytes % 6.8 L Monocytes % 1.2 L Eosinophils % 0.0 Basophils % 0.0 Absolute Neutrophils 11.6 H Absolute Lymphocytes 0.9 Absolute Monocytes 0.1 Absolute Eosinophils 0.0 Absolute Basophils 0.0 Sodium 137.3 Potassium 4.6 Chloride 101 Carbon Dioxide 22 Anion Gap 14 BUN 41 H Creatinine 1.43 H Est GFR ( Amer) 42 L Est GFR (Non-Af Amer) 35 L Glucose 212 H Calcium 9.8 Urine Color YELLOW Urine Appearance CLEAR Urine pH 8.0 Ur Specific [place] 1.014 Urine Protein NEGATIVE Urine Glucose (UA) NEGATIVE Urine Ketones NEGATIVE Urine Blood NEGATIVE Urine Nitrite NEGATIVE Ur Leukocyte Esterase TRACE H Urine WBC (Auto) 2 09/15/16 09/15/16 09/16/16 21:20 21:20 03:46 Creatine Kinase 73 80 Troponin I < 0.012 09/16/16 09/16/16 09/16/16 03:46 09:26 09:26 Creatine Kinase 72 Troponin I < 0.012 < 0.012 Impressions: Chest X-Ray 09/15/16 00:00 IMPRESSION: NO ACUTE CARDIOPULMONARY PROCESS. NO SIGNIFICANT CHANGE FROM PRIOR STUDY. Assessment & Plan - Diagnosis (1) Acute exacerbation of chronic obstructive pulmonary disease (COPD) Is this a current diagnosis for this admission?: YesPlan: Continues the current IV Solu-Medrol and nebulizer treatments (2) Hypersensitivity disorder Qualifiers: Encounter type: initial encounter Qualified Code(s): T78.40XA - Allergy, unspecified, initial encounter Plan: Is likely a drug reactions continues to Solu-Medrol and also add the Zyrtec and the Pepcid. No sign of Ashley-Gómez syndrome and no sign of any shingles (3) Diabetes mellitus Qualifiers: Diabetes mellitus type: type 2 Diabetes mellitus complication status: with neurologic complications Diabetes mellitus complication detail: with polyneuropathy Diabetes mellitus er manager insulin use: without er manager use Qualified Code(s): E11.42 - Type 2 diabetes mellitus with diabetic polyneuropathy; Z79.4 - [employer] (current) use of insulin Is this a current diagnosis for this admission?: YesPlan: Congestive current medications (4) Chronic pain syndrome Is this a current diagnosis for this admission?: YesPlan: Start the patient on oxycodone 5 mg. Patient used to take for a long time and obviously possible maybe a side effect with the morphine we cannot use it - Time Time Spent with patient: 15-24 minutes Medications reviewed and adjusted accordingly: Yes Anticipated discharge: Home Within: within 24 hours - Inpatient Certification Medical Necessity: Need Close Monitoring Due to Risk of Patient Decompensation Post Hospital Care: D/C Jackerman Documentation - Plan Summary Plan Summary: Decrease the IV Solu-Medrol 40 mg IV twice a day and continues the current other medications I believe patient's complete discharge tomorrow
[2016-09-17] MEDS: FAMOTIDINE 20 MG TABLET PO SCH ×2 (12:10→21:53)
[2016-09-17] MEDS: CETIRIZINE 10 MG TABLET PO SCH (12:10)
[2016-09-17] MEDS ORDERED: METHYLPREDNISOLONE INJ 40 MG/1 ML SDV IV SCH (14:00)
[2016-09-17] MEDS: METHYLPREDNISOLONE INJ 40 MG/1 ML SDV IV SCH (21:49)
[2016-09-17] MEDS: PRAMIPEXOLE DI-HCL 0.25 MG TABLET PO SCH (21:50)
[2016-09-18] MEDS: OXYCODONE HCL IR 5 MG TABLET PO SCH ×5 (01:59→18:13)
[2016-09-18] MEDS: IPRATROPIUM/ALBUTEROL 0.5-2.5 MG/3 ML AMPUL NEB SCH ×3 (02:04→14:01)
[2016-09-18] MEDS: VALACYCLOVIR HCL 500 MG TABLET PO SCH ×2 (05:38→15:32)
[2016-09-18 06:33] LABS: ANION GAP 14 (5-19); BLOOD UREA NITROGEN 47 mg/dL (7-20); CALCIUM 9.5 mg/dL (8.4-10.2); CARBON DIOXIDE 20 mmol/L (22-30); CHLORIDE 104 mmol/L (98-107); CREATININE RESULT 1.27 mg/dL (0.52-1.25); GLUCOSE 181 mg/dL (75-110); POTASSIUM 4.6 mmol/L (3.6-5.0); SODIUM 138.4 mmol/L (137-145)
[2016-09-18] MEDS: INSULIN LISPRO 100 UNIT/ML 3 ML VIAL SUBCUT PRN ×2 (10:14→12:39)
[2016-09-18] MEDS: ENOXAPARIN SODIUM INJ 40 MG/0.4 ML DISP.SYRIN SUBCUT SCH (10:14)
[2016-09-18] MEDS: LOSARTAN POTASSIUM 50 MG TABLET PO SCH (10:17)
[2016-09-18] MEDS: DULOXETINE HCL 30 MG CAPSULE.DR PO SCH (10:18)
[2016-09-18] MEDS: MAGNESIUM OXIDE 400 MG TABLET PO SCH (10:19)
[2016-09-18] MEDS: METOPROLOL TARTRATE 25 MG TABLET PO SCH (10:19)
[2016-09-18] MEDS: SITAGLIPTIN PHOSPHATE 25 MG TABLET PO SCH ×2 (10:19→18:13)
[2016-09-18] MEDS: ASPIRIN 81 MG TABLET, CHEWABLE PO SCH (10:20)
[2016-09-18] MEDS: LORATADINE 10 MG TABLET PO SCH (10:20)
[2016-09-18] MEDS: ISOSORBIDE MONONITRATE 30 MG TAB.ER.24H PO SCH (10:20)
[2016-09-18] MEDS: METHYLPREDNISOLONE INJ 40 MG/1 ML SDV IV SCH (10:20)
[2016-09-18] MEDS: METFORMIN HCL 500 MG TABLET PO SCH ×2 (10:20→18:12)
[2016-09-18] MEDS: CETIRIZINE 10 MG TABLET PO SCH (10:23)
[2016-09-18] MEDS: FAMOTIDINE 20 MG TABLET PO SCH (10:23)
[2016-09-18 18:44] VITALS: BP 113/66
--- NOTE | 2016-09-18 19:28 | PDOC DISCHARGE SUMMARY ---
General - Admit/Disc Date/PCP Admission Date/Primary Care Provider: 09/15/16 18:47 DENICE MORRIS MD Discharge Date: 09/18/16 - Discharge Diagnosis (1) Acute exacerbation of chronic obstructive pulmonary disease (COPD) Is this a current diagnosis for this admission?: Yes (2) Hypersensitivity disorder Is this a current diagnosis for this admission?: Yes (3) Diabetes mellitus Is this a current diagnosis for this admission?: Yes - Additional Information Discharge Activity: Activity As Tolerated Home Medications: RX: Loratadine [Claritin 10 mg Tablet] 10 mg PO DAILY 03/05/13 RX: Pramipexole Di-HCl [Mirapex 0.25 mg Tablet] 0.25 mg PO QHS 03/05/13 RX: Losartan Potassium 100 mg PO DAILY 09/12/14 RX: Isosorbide Mononitrate [Imdur 30 mg Tablet.er] 30 mg PO DAILY 04/17/15 RX: Duloxetine HCl [Cymbalta] 60 mg PO BID 08/27/15 RX: Linagliptin/Metformin HCl [Jentadueto 2.5 mg-1000 mg Tab] 1 tab PO BID 12/17 RX: Albuterol Sulfate [Ventolin 0.083% Neb 2.5 mg/3 mL Ampul] 2.5 mg NEB RTQ8HP PRN 09/15/16 RX: Aspirin [Aspirin 81 mg Chewable Tablet] 81 mg PO DAILY 09/15/16 RX: Magnesium Oxide [Mag-Ox 400 mg Tablet] 400 mg PO DAILY 09/15/16 RX: Metoprolol Tartrate [Lopressor 25 mg Tablet] 25 mg PO DAILY 09/15/16 RX: Prednisone 20 mg PO DAILY #0 tablet 09/18/16 History of Present Illness History of Present Illness: SINAN MONTGOMERY is a 86 year old female, she came to the office today because of shortness of breath, wheezing she also have diffuse erythematous rash involving the torso and also the extremities including the upper extremities and lower extremities, there are also areas of blistering, the rash is suspicious for hypersensitivity reaction probably to one the medication she is taking, the only new medication that she recently started taking in the last couple of weeks to months was morphine, she follows with pain management for the treatment of her chronic pain and she is on oral morphine and also fentanyl patch which is a morphine derivative. I suspect the morphine could be the trigger for this diffuse rash, there is associated severe pruritus, she is itching profusely in the office with areas of scratch henao. 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 Hospital Course Hospital Course: Patient was admitted because of acute COPD exacerbation and also drug induced hypersensitivity reaction. She was treated with IV Solu-Medrol, bronchodilators , DuoNeb with very good result.. The erythema completely resolved and also the wheezing she was seen today on rounds she feels much better she was happy she wants to go home today. Physical Exam Vital Signs: Temp Pulse Resp BP Pulse Ox 97.5 F 81 20 113/66 100 09/18/16 18:37 09/18/16 18:37 09/18/16 18:37 09/18/16 18:37 09/18/16 18:37 Intake & Output 09/17/16 09/18/16 09/19/16 06:59 06:59 06:59 Intake Total 1998 1405 721 Output Total 200 Balance 1998 1205 721 Weight 93.9 kg 95.6 kg General appearance: PRESENT: no acute distress, well-developed, well-nourished Head exam: PRESENT: atraumatic, normocephalic Eye exam: PRESENT: conjunctiva pink, EOMI, PERRLA Ear exam: PRESENT: normal external ear exam Mouth exam: PRESENT: moist, tongue midline Neck exam: PRESENT: full ROM Respiratory exam: PRESENT: clear to auscultation julio Cardiovascular exam: PRESENT: RRR, +S1, +S2 Vascular exam: PRESENT: normal capillary refill GI/Abdominal exam: PRESENT: normal bowel sounds, soft Rectal exam: PRESENT: deferred Neurological exam: PRESENT: alert, awake, oriented to person, oriented to place , oriented to time, oriented to situation, CN II-XII grossly intact Psychiatric exam: PRESENT: appropriate affect, normal mood Skin exam: PRESENT: dry, intact, warm Results Laboratory Results: 09/17/16 06:20 09/18/16 05:53 09/18/16 05:53 Sodium 138.4 Potassium 4.6 Chloride 104 Carbon Dioxide 20 L Anion Gap 14 BUN 47 H Creatinine 1.27 H Est GFR ( Amer) 48 L Est GFR (Non-Af Amer) 40 L Glucose 181 H Calcium 9.5 09/15/16 09/15/16 09/16/16 21:20 21:20 03:46 Creatine Kinase 73 80 Troponin I < 0.012 09/16/16 09/16/16 09/16/16 03:46 09:26 09:26 Creatine Kinase 72 Troponin I < 0.012 < 0.012 Impressions: Chest X-Ray 09/15/16 00:00 IMPRESSION: NO ACUTE CARDIOPULMONARY PROCESS. NO SIGNIFICANT CHANGE FROM PRIOR STUDY.
== END 2016-09-18 19:15 | disposition home health service (06) | DRG 192 ==
LOC: ER 17:12 → EH 18:47 → 3S 22:37
PROVIDERS: ADMIT Internal Medicine; ATTEND Internal Medicine
DX: J44.1 Chronic obstructive pulmonary disease with (acute) exacerbation (principal); L27.0 Generalized skin eruption due to drugs and medicaments taken internally; T40.2X5A Adverse effect of other opioids, initial encounter; Y92.9 Unspecified place or not applicable; G89.4 Chronic pain syndrome; E11.9 Type 2 diabetes mellitus without complications; I50.9 Heart failure, unspecified; I25.10 Atherosclerotic heart disease of native coronary artery without angina pectoris; E78.5 Hyperlipidemia, unspecified; I10 Essential (primary) hypertension; E03.9 Hypothyroidism, unspecified; M19.90 Unspecified osteoarthritis, unspecified site; F31.9 Bipolar disorder, unspecified; D64.9 Anemia, unspecified; Z79.4 Long term (current) use of insulin; Z79.82 Long term (current) use of aspirin; Z79.899 Other long term (current) drug therapy; I25.2 Old myocardial infarction; Z95.1 Presence of aortocoronary bypass graft; Z90.49 Acquired absence of other specified parts of digestive tract; Z85.3 Personal history of malignant neoplasm of breast; Z90.11 Acquired absence of right breast and nipple; Z90.710 Acquired absence of both cervix and uterus; Z96.641 Presence of right artificial hip joint; Z96.653 Presence of artificial knee joint, bilateral; Z87.891 Personal history of nicotine dependence; Z88.8 Allergy status to other drugs, medicaments and biological substances; Z88.1 Allergy status to other antibiotic agents
CPT/HCPCS: 36415; 71020; 80048; 80053; 81001; 82140; 82150; 82550; 82962; 83690; 83735; 84439; 84443; 84484; 85025; 85610; 85730; 87040; 87086; 87088; 87186; 93005; 93010; 94640; 99281; J1650; J1815; J2920; J2930; J3490; J7620

== ENCOUNTER 2016-10-12 19:14 | Inpatient (IN) | payer MEDICARE, MEDICAID ==
[2016-10-12] MEDS: IPRATROPIUM/ALBUTEROL 0.5-2.5 MG/3 ML AMPUL NEB SCH ×2 (20:36→23:25)
[2016-10-12 20:51] LABS: HEMATOCRIT 30.2 % (36.0-47.0); HEMOGLOBIN 10.2 g/dL (12.0-15.5); HGB HCT DIFFERENCE 0.4; MEAN CORPUSCULAR HEMOGLOBIN 29.8 pg (27.0-33.4); MEAN CORPUSCULAR HGB CONC 33.6 g/dL (32.0-36.0); MEAN CORPUSCULAR VOLUME 89 fl (80-97); RED BLOOD COUNT 3.41 10^6/uL (3.72-5.28); RED CELL DISTRIBUTION WIDTH 15.1 % (11.5-14.0); WHITE BLOOD COUNT 11.2 10^3/uL (4.0-10.5)
[2016-10-12 21:06] LABS: APPEARANCE,URINE CLEAR; BILIRUBIN,URINE NEGATIVE (NEGATIVE); GLUCOSE, URINE NEGATIVE (NEGATIVE); KETONES,URINE NEGATIVE (NEGATIVE); LEUKOCYTE ESTERASE,URINE NEGATIVE (NEGATIVE); NITRITE,URINE NEGATIVE (NEGATIVE); PROTEIN,URINE NEGATIVE (NEGATIVE); URINE SPECIFIC GRAVITY 1.008; UROBILINOGEN,URINE NEGATIVE mg/dL (<2.0)
[2016-10-12 21:08] LABS: ALANINE AMINOTRANSFERASE 31 U/L (9-52); ALBUMIN 3.5 g/dL (3.5-5.0); ALKALINE PHOSPHATASE 74 U/L (38-126); ANION GAP 13 (5-19); ASPARTATE AMINO TRANSFERASE 30 U/L (14-36); BILIRUBIN,DIRECT 0.4 mg/dL (0.0-0.4); BILIRUBIN,TOTAL 0.9 mg/dL (0.2-1.3); BLOOD UREA NITROGEN 35 mg/dL (7-20); CARBON DIOXIDE 26 mmol/L (22-30); CHLORIDE 97 mmol/L (98-107); CREATININE RESULT 1.39 mg/dL (0.52-1.25); GLUCOSE 116 mg/dL (75-110); POTASSIUM 4.5 mmol/L (3.6-5.0); SODIUM 136.4 mmol/L (137-145); TOTAL PROTEIN 5.8 g/dL (6.3-8.2)
[2016-10-12] MEDS ORDERED: LORAZEPAM INJ 2 MG/1 ML VIAL ONE (21:51)
[2016-10-12] MEDS ORDERED: (PENDING PHARMACY ID) (Pravastatin Sodium [Pravastatin Sodium] 40 MG) PO PRN (21:56)
[2016-10-12] MEDS ORDERED: PIPERACILLIN SODIUM/TAZOBACTAM 3.375 GM in NORMAL SALINE 100 ML IV SCH (22:00)
[2016-10-12] MEDS ORDERED: VANCOMYCIN HCL 2,000 MG in DEXTROSE 5%-WATER 500 ML IV ONE (22:00)
[2016-10-12] MEDS ORDERED: LORAZEPAM INJ 2 MG/1 ML VIAL IV ONE (22:15)
[2016-10-12] MEDS ORDERED: FENTANYL 50 MCG/HR PATCH.TD72 TD SCH (23:00)
[2016-10-12] MEDS: HEPARIN SOD (PORCINE) 5,000 UNIT/ML 1 ML SYRINGE SUBCUT SCH (23:43)
[2016-10-13] MEDS ORDERED: PIPERACILLIN SODIUM/TAZOBACTAM 2.25 GM in NORMAL SALINE 50 ML IV SCH ×2
[2016-10-13] MEDS: IPRATROPIUM/ALBUTEROL 0.5-2.5 MG/3 ML AMPUL NEB SCH ×6 (03:21→23:30)
[2016-10-13] MEDS: OXYCODONE-ACETAMINOPHEN 5-325 MG TABLET PO PRN ×2 (05:13→12:14)
[2016-10-13] MEDS: HEPARIN SOD (PORCINE) 5,000 UNIT/ML 1 ML SYRINGE SUBCUT SCH ×3 (05:16→21:33)
[2016-10-13] MEDS ORDERED: SPIRONOLACTONE 25 MG TABLET PO SCH (08:00)
[2016-10-13] MEDS ORDERED: (PENDING PHARMACY ID) (Losartan Potassium [Losartan Potassium] 100 MG) PO SCH (10:00)
[2016-10-13] MEDS ORDERED: LINAGLIPTIN PO SCH (10:00)
[2016-10-13] MEDS ORDERED: METFORMIN HCL PO SCH (10:00)
[2016-10-13] MEDS: LOSARTAN POTASSIUM 50 MG TABLET PO SCH (10:54)
[2016-10-13] MEDS: DULOXETINE HCL 30 MG CAPSULE.DR PO SCH ×2 (11:00→17:54)
[2016-10-13] MEDS: FUROSEMIDE 40 MG TABLET PO SCH (11:00)
[2016-10-13] MEDS: ASPIRIN 81 MG TABLET, CHEWABLE PO SCH (11:01)
[2016-10-13] MEDS: SPIRONOLACTONE 25 MG TABLET PO SCH (11:01)
[2016-10-13] MEDS: ISOSORBIDE MONONITRATE 30 MG TAB.ER.24H PO SCH (11:02)
[2016-10-13] MEDS: MAGNESIUM OXIDE 400 MG TABLET PO SCH (11:02)
[2016-10-13] MEDS: LORATADINE 10 MG TABLET PO SCH (11:02)
[2016-10-13] MEDS: METOPROLOL TARTRATE 25 MG TABLET PO SCH (11:03)
[2016-10-13] MEDS: PIPERACILLIN SODIUM/TAZOBACTAM 2.25 GM in NORMAL SALINE 50 ML IV SCH ×3 (12:13→20:40)
[2016-10-13] MEDS: NYSTATIN TOPICAL POWDER 15 GM TP PRN ×2 (12:15→17:55)
[2016-10-13] MEDS: NYSTATIN TOPICAL POWDER 15 GM TP SCH ×2 (15:10→18:06)
--- NOTE | 2016-10-13 18:58 | PDOC H&P ---
History of Present Illness Admission Date/PCP: 10/12/16 19:14 DENICE MORRIS MD History of Present Illness: SINAN MONTGOMERY is a 86 year old female, she came to the office without any appointment, she has tremendous swelling of the left lower extremity with severe redness and tenderness on palpation of the leg, she was also audibly wheezing in the office I was very concerned especially for the likelihood of compartment syndrome of the left leg because of the severe swelling and the redness and also I was concerned she may also have pneumonia so she was admitted directly from the office into the hospital for management of the symptoms. MRI of the leg was done it showed moderate soft tissue subcutaneous edema there was no evidence of compartment syndrome and there was no evidence of osteomyelitis so this is probably cellulitis. CT chest without contrast was done he showed mild interstitial and scattered groundglass airspace patchiness Past Medical History Cardiac Medical History: Reports: Coronary Artery Disease, Myocardial Infarction , Hyperlipidema, Hypertension Pulmonary Medical History: Reports: Asthma, Bronchitis, Chronic Obstructive Pulmonary Disease (COPD), Pneumonia, Sleep Apnea Neurological Medical History: Endocrine Medical History: Reports: Diabetes Mellitus Type 2, Hyperthyroidism, Hypothyroidism Renal/ Medical History: Malignancy Medical History: Reports: Breast Cancer GI Medical History: Reports: Gastroesophageal Reflux Disease Musculoskeltal Medical History: Reports: Arthritis Psychiatric Medical History: Reports: Depression Hematology: Reports: Anemia Infectious Medical History: Past Surgical History Past Surgical History: Reports: Adenoidectomy, Appendectomy, Cardiac Catheterization, Cholecystectomy, Coronary Artery Bypass Graft - 1996, Hysterectomy, Mastectomy - rt 1994, Orthopedic Surgery - Right Hip replacement, bilateral knee replacements, Tonsillectomy Social History Smoking Status: Former Smoker Frequency of Alcohol Use: Occasional Hx Recreational Drug Use: No Hx Prescription Drug Abuse: No Family History Family History: CAD, CVA, DM, Hyperlipidemia, Hypertension Parental Family History Reviewed: Yes Children Family History Reviewed: Yes Sibling(s) Family History Reviewed.: Yes Medication/Allergy Home Medications: Loratadine [Claritin 10 mg Tablet] 10 mg PO DAILY 03/05/13 Pramipexole Di-HCl [Mirapex 0.25 mg Tablet] 0.25 mg PO QHS 03/05/13 Losartan Potassium 100 mg PO DAILY 09/12/14 Isosorbide Mononitrate [Imdur 30 mg Tablet.er] 30 mg PO DAILY 04/17/15 Duloxetine HCl [Cymbalta] 60 mg PO BID 08/27/15 Albuterol Sulfate [Ventolin 0.083% Neb 2.5 mg/3 mL Ampul] 2.5 mg NEB RTQ8HP PRN 09/15/16 Aspirin [Aspirin 81 mg Chewable Tablet] 81 mg PO DAILY 09/15/16 Magnesium Oxide [Mag-Ox 400 mg Tablet] 400 mg PO DAILY 09/15/16 Metoprolol Tartrate [Lopressor 25 mg Tablet] 25 mg PO DAILY 09/15/16 Ergocalciferol (Vitamin D2) [Vitamin D2] 50,000 unit PO HURST 10/12/16 Fentanyl [Duragesic 50 Mcg/Hr Transdermal Patch] 1 each TD Q3D 10/12/16 Furosemide [Lasix] 40 mg PO DAILY 10/12/16 Linagliptin/Metformin HCl [Jentadueto 2.5 mg-1000 mg Tab] 1 tab PO BID 10/12/16 Pravastatin Sodium 40 mg PO QHS 10/12/16 Spironolactone 25 mg PO DAILY 10/12/16 Allergies/Adverse Reactions: codeine [Codeine] Allergy (Severe, Verified 07/02/16 12:47) headache Sulfa (Sulfonamide Antibiotics) Allergy (Verified 07/02/16 12:47) itching Review of Systems Constitutional: ABSENT: chills, fever(s), headache(s), weight gain, weight loss Eyes: ABSENT: visual disturbances Ears: ABSENT: hearing changes Cardiovascular: PRESENT: dyspnea on exertion Respiratory: PRESENT: cough Gastrointestinal: ABSENT: abdominal pain, constipation, diarrhea, hematemesis, hematochezia, nausea, vomiting Genitourinary: ABSENT: dysuria, hematuria Musculoskeletal: ABSENT: joint swelling Integumentary: ABSENT: rash, wounds Neurological: ABSENT: abnormal gait, abnormal speech, confusion, dizziness, focal weakness, syncope Psychiatric: ABSENT: anxiety, depression, homidical ideation, suicidal ideation Endocrine: ABSENT: cold intolerance, heat intolerance, menstrual abnormalities, polydipsia, polyuria Hematologic/Lymphatic: ABSENT: easy bleeding, easy bruising, lymphadenopathy Physical Exam Vital Signs: Temp Pulse Resp BP Pulse Ox 97.7 F 82 16 88/36 L 95 10/13/16 15:00 10/13/16 15:28 10/13/16 15:28 10/13/16 15:00 10/13/16 15:28 Intake & Output 10/12/16 10/13/16 10/14/16 06:59 06:59 06:59 Intake Total 591 1120 Output Total 1425 Balance -834 1120 Weight 96.1 kg General appearance: PRESENT: obese Head exam: PRESENT: atraumatic, normocephalic Eye exam: PRESENT: conjunctiva pink, EOMI, PERRLA. ABSENT: scleral icterus Ear exam: PRESENT: normal external ear exam Mouth exam: PRESENT: moist, tongue midline Neck exam: PRESENT: full ROM Respiratory exam: PRESENT: wheezes Cardiovascular exam: PRESENT: RRR, +S1, +S2 Vascular exam: PRESENT: normal capillary refill GI/Abdominal exam: PRESENT: normal bowel sounds, soft Rectal exam: PRESENT: deferred Extremities exam: PRESENT: other - Severe swelling and redness of the left leg, consistent with severe cellulitis Neurological exam: PRESENT: alert, awake, oriented to person, oriented to place , oriented to time, oriented to situation, CN II-XII grossly intact. ABSENT: motor sensory deficit Psychiatric exam: PRESENT: appropriate affect, normal mood Skin exam: PRESENT: dry, intact, warm Results Laboratory Results: 10/12/16 20:38 10/12/16 20:38 10/12/16 10/12/16 10/12/16 20:00 20:38 20:38 WBC 11.2 H RBC 3.41 L Hgb 10.2 L Hct 30.2 L MCV 89 MCH 29.8 MCHC 33.6 RDW 15.1 H Plt Count 270 Sodium 136.4 L Potassium 4.5 Chloride 97 L Carbon Dioxide 26 Anion Gap 13 BUN 35 H Creatinine 1.39 H Est GFR ( Amer) 44 L Est GFR (Non-Af Amer) 36 L Glucose 116 H Calcium 9.0 Total Bilirubin 0.9 AST 30 ALT 31 Alkaline Phosphatase 74 Total Protein 5.8 L Albumin 3.5 Urine Color YELLOW Urine Appearance CLEAR Urine pH 5.0 Ur Specific [place] 1.008 Urine Protein NEGATIVE Urine Glucose (UA) NEGATIVE Urine Ketones NEGATIVE Urine Blood NEGATIVE Urine Nitrite NEGATIVE Ur Leukocyte Esterase NEGATIVE Urine WBC (Auto) 0 Urine RBC (Auto) 1 Impressions: Chest CT 10/12/16 00:00 IMPRESSION: Slightly worsened mild interstitial and airspace opacity probably due to chronic interstitial lung disease. Differential diagnosis includes pulmonary edema. Consider obtaining current chest radiographs. Lower Extremity MRI 10/12/16 00:00 IMPRESSION: Moderate subcutaneous soft tissue edema of the mid and distal left lower leg. No MRI evidence of compartment syndrome. No MRI evidence of osteomyelitis. Assessment & Plan - Diagnosis (1) Cellulitis of leg, left Is this a current diagnosis for this admission?: YesPlan: She has severe cellulitis she be treated with IV antibiotic to cover MRSA, gram- negative organisms and Streptococcus, she was treated with IV vancomycin and Zosyn (2) Chronic obstructive lung disease Qualifiers: COPD type: COPD with acute exacerbation Qualified Code(s): J44.1 - Chronic obstructive pulmonary disease with (acute) exacerbation Is this a current diagnosis for this admission?: Yes (3) Pneumonia Qualifiers: Pneumonia type: due to unspecified organism Laterality: unspecified laterality Lung location: unspecified part of lung Qualified Code(s) : J18.9 - Pneumonia, unspecified organism Is this a current diagnosis for this admission?: Yes (4) Coronary artery disease Qualifiers: Coronary Disease-Associated Artery/Lesion type: [place] artery [place] vs. transplanted heart: [place] heart Associated angina: without angina Qualified Code(s): I25.10 - Atherosclerotic heart disease of [place] coronary artery without angina pectoris Is this a current diagnosis for this admission?: Yes (5) Morbid obesity due to excess calories Is this a current diagnosis for this admission?: Yes (6) Diabetes mellitus Qualifiers: Diabetes mellitus type: type 2 Diabetes mellitus complication status: with neurologic complications Diabetes mellitus complication detail: with polyneuropathy Diabetes mellitus continuous churn buttermaker insulin use: without detention use Qualified Code(s): E11.42 - Type 2 diabetes mellitus with diabetic polyneuropathy; Z79.4 - long term care administrator (current) use of insulin Is this a current diagnosis for this admission?: Yes
--- NOTE | 2016-10-13 18:59 | PDOC PROGRESS REPORT ---
Subjective Progress Note for:: 10/13/16 Subjective:: She was admitted yesterday for severe cellulitis and acute COPD she is on IV antibiotic she has a low blood pressure today Physical Exam Vital Signs: Temp Pulse Resp BP Pulse Ox 97.7 F 82 16 88/36 L 95 10/13/16 15:00 10/13/16 15:28 10/13/16 15:28 10/13/16 15:00 10/13/16 15:28 Intake & Output 10/12/16 10/13/16 10/14/16 06:59 06:59 06:59 Intake Total 591 1120 Output Total 1425 Balance -834 1120 Weight 96.1 kg General appearance: PRESENT: mild distress Eye exam: PRESENT: PERRLA Respiratory exam: PRESENT: wheezes Cardiovascular exam: PRESENT: +S1, +S2 GI/Abdominal exam: PRESENT: soft Neurological exam: PRESENT: alert Results Laboratory Results: 10/12/16 20:38 10/12/16 20:38 10/12/16 10/12/16 10/12/16 20:00 20:38 20:38 WBC 11.2 H RBC 3.41 L Hgb 10.2 L Hct 30.2 L MCV 89 MCH 29.8 MCHC 33.6 RDW 15.1 H Plt Count 270 Sodium 136.4 L Potassium 4.5 Chloride 97 L Carbon Dioxide 26 Anion Gap 13 BUN 35 H Creatinine 1.39 H Est GFR ( Amer) 44 L Est GFR (Non-Af Amer) 36 L Glucose 116 H Calcium 9.0 Total Bilirubin 0.9 AST 30 ALT 31 Alkaline Phosphatase 74 Total Protein 5.8 L Albumin 3.5 Urine Color YELLOW Urine Appearance CLEAR Urine pH 5.0 Ur Specific [place] 1.008 Urine Protein NEGATIVE Urine Glucose (UA) NEGATIVE Urine Ketones NEGATIVE Urine Blood NEGATIVE Urine Nitrite NEGATIVE Ur Leukocyte Esterase NEGATIVE Urine WBC (Auto) 0 Urine RBC (Auto) 1 Impressions: Chest CT 10/12/16 00:00 IMPRESSION: Slightly worsened mild interstitial and airspace opacity probably due to chronic interstitial lung disease. Differential diagnosis includes pulmonary edema. Consider obtaining current chest radiographs. Lower Extremity MRI 10/12/16 00:00 IMPRESSION: Moderate subcutaneous soft tissue edema of the mid and distal left lower leg. No MRI evidence of compartment syndrome. No MRI evidence of osteomyelitis. Assessment & Plan - Diagnosis (1) Cellulitis of leg, left Is this a current diagnosis for this admission?: YesPlan: She has severe cellulitis she be treated with IV antibiotic to cover MRSA, gram- negative organisms and Streptococcus, she was treated with IV vancomycin and Zosyn (2) Chronic obstructive lung disease Qualifiers: COPD type: COPD with acute exacerbation Qualified Code(s): J44.1 - Chronic obstructive pulmonary disease with (acute) exacerbation Is this a current diagnosis for this admission?: Yes (3) Pneumonia Qualifiers: Pneumonia type: due to unspecified organism Laterality: unspecified laterality Lung location: unspecified part of lung Qualified Code(s) : J18.9 - Pneumonia, unspecified organism Is this a current diagnosis for this admission?: Yes (4) Coronary artery disease Qualifiers: Coronary Disease-Associated Artery/Lesion type: [place] artery [place] vs. transplanted heart: [place] heart Associated angina: without angina Qualified Code(s): I25.10 - Atherosclerotic heart disease of [place] coronary artery without angina pectoris Is this a current diagnosis for this admission?: Yes (5) Morbid obesity due to excess calories Is this a current diagnosis for this admission?: Yes (6) Diabetes mellitus Qualifiers: Diabetes mellitus type: type 2 Diabetes mellitus complication status: with neurologic complications Diabetes mellitus complication detail: with polyneuropathy Diabetes mellitus alf insulin use: without alf use Qualified Code(s): E11.42 - Type 2 diabetes mellitus with diabetic polyneuropathy; Z79.4 - extermination inspector (current) use of insulin Is this a current diagnosis for this admission?: Yes
[2016-10-13] MEDS ORDERED: GLUCAGON,HUMAN RECOMB 1 MG INJ IM PRN (19:43)
[2016-10-13] MEDS ORDERED: DEXTROSE 50%-WATER SYRINGE 12.5 GM/25 ML DOSE IV PRN (19:43)
[2016-10-13] MEDS ORDERED: DEXTROSE 40% GEL 15 GM TUBE PO PRN (19:43)
[2016-10-13] MEDS ORDERED: DEXTROSE 50%-WATER SYRINGE 25 GM/50 ML DOSE IV PRN (19:43)
[2016-10-13] MEDS ORDERED: DEXTROSE 40% GEL 15 GM TUBE X 2 PO PRN (19:43)
[2016-10-13] MEDS: NORMAL SALINE 1000 ML 1,000 ML IV PRN (20:43)
[2016-10-13] MEDS: CLOBETASOL PROPIONATE 0.05% CREAM 15 GM TP SCH (21:32)
[2016-10-13] MEDS: ATORVASTATIN CALCIUM 10 MG TABLET PO SCH (21:32)
[2016-10-13] MEDS: PRAMIPEXOLE DI-HCL 0.25 MG TABLET PO SCH (21:33)
[2016-10-13] MEDS: VANCOMYCIN HCL 1,000 MG in DEXTROSE 5%-WATER 250 ML IV SCH (22:24)
[2016-10-13] MEDS: INSULIN LISPRO 100 UNIT/ML 3 ML VIAL SUBCUT PRN (23:05)
[2016-10-14] MEDS: OXYCODONE-ACETAMINOPHEN 5-325 MG TABLET PO PRN ×2 (00:32→22:18)
[2016-10-14] MEDS: PIPERACILLIN SODIUM/TAZOBACTAM 2.25 GM in NORMAL SALINE 50 ML IV SCH ×4 (03:08→20:31)
[2016-10-14] MEDS: IPRATROPIUM/ALBUTEROL 0.5-2.5 MG/3 ML AMPUL NEB SCH ×6 (03:47→23:44)
[2016-10-14] MEDS: HEPARIN SOD (PORCINE) 5,000 UNIT/ML 1 ML SYRINGE SUBCUT SCH ×3 (05:56→22:17)
--- NOTE | 2016-10-14 09:23 | PDOC PROGRESS REPORT ---
Subjective Progress Note for:: 10/14/16 Subjective:: Patient is admitted for the cellulitis currently on IV antibiotic Patient's denied any chest pain or any shortness of the breath Patient's denied any fever Patient is currently on IV vancomycin on IV Zosyn Physical Exam Vital Signs: Temp Pulse Resp BP Pulse Ox 98.4 F 107 H 20 91/36 L 91 L 10/14/16 07:46 10/14/16 07:46 10/14/16 07:46 10/14/16 07:46 10/14/16 07:46 Intake & Output 10/13/16 10/14/16 10/15/16 06:59 06:59 06:59 Intake Total 591 2806 Output Total 1425 1650 Balance -834 1156 Weight 96.1 kg 96 kg General appearance: PRESENT: no acute distress, well-developed, well-nourished Head exam: PRESENT: atraumatic, normocephalic Eye exam: PRESENT: conjunctiva pink, EOMI, PERRLA. ABSENT: scleral icterus Ear exam: PRESENT: normal external ear exam Mouth exam: PRESENT: moist, tongue midline Neck exam: PRESENT: full ROM. ABSENT: carotid bruit, JVD, lymphadenopathy, thyromegaly Respiratory exam: PRESENT: clear to auscultation julio Cardiovascular exam: PRESENT: RRR. ABSENT: diastolic murmur, rubs, systolic murmur Pulses: PRESENT: normal dorsalis pedis pul, +2 pedal pulses bilateral Vascular exam: PRESENT: normal capillary refill GI/Abdominal exam: PRESENT: normal bowel sounds, soft. ABSENT: distended, guarding, mass, organolmegaly, rebound, tenderness Rectal exam: PRESENT: deferred Extremities exam: PRESENT: pedal edema Additional comments: Bilateral lower extremity redness and warmth to touch Neurological exam: PRESENT: alert, awake, oriented to person, oriented to place , oriented to time, oriented to situation, CN II-XII grossly intact. ABSENT: motor sensory deficit Psychiatric exam: PRESENT: appropriate affect, normal mood. ABSENT: homicidal ideation, suicidal ideation Skin exam: PRESENT: dry, intact, warm. ABSENT: cyanosis, rash Results Laboratory Results: 10/12/16 20:38 10/12/16 20:38 Impressions: Chest CT 10/12/16 00:00 IMPRESSION: Slightly worsened mild interstitial and airspace opacity probably due to chronic interstitial lung disease. Differential diagnosis includes pulmonary edema. Consider obtaining current chest radiographs. Lower Extremity MRI 10/12/16 00:00 IMPRESSION: Moderate subcutaneous soft tissue edema of the mid and distal left lower leg. No MRI evidence of compartment syndrome. No MRI evidence of osteomyelitis. Assessment & Plan - Diagnosis (1) Cellulitis of leg, left Is this a current diagnosis for this admission?: YesPlan: Continues IV antibiotic (2) Chronic obstructive lung disease Qualifiers: COPD type: COPD with acute exacerbation Qualified Code(s): J44.1 - Chronic obstructive pulmonary disease with (acute) exacerbation Is this a current diagnosis for this admission?: YesPlan: nebulizer treatments (3) Coronary artery disease Qualifiers: Coronary Disease-Associated Artery/Lesion type: [place] artery [place] vs. transplanted heart: [place] heart Associated angina: without angina Qualified Code(s): I25.10 - Atherosclerotic heart disease of [place] coronary artery without angina pectoris Is this a current diagnosis for this admission?: Yes (4) Morbid obesity due to excess calories Is this a current diagnosis for this admission?: Yes (6) Diabetes mellitus Qualifiers: Diabetes mellitus type: type 2 Diabetes mellitus complication status: with neurologic complications Diabetes mellitus complication detail: with polyneuropathy Diabetes mellitus ad terminal makeup operator insulin use: without mcc use Qualified Code(s): E11.42 - Type 2 diabetes mellitus with diabetic polyneuropathy; Z79.4 - ad terminal makeup operator (current) use of insulin Is this a current diagnosis for this admission?: Yes - Time Time Spent with patient: 15-24 minutes Medications reviewed and adjusted accordingly: Yes Anticipated discharge: Other - Inpatient Certification Medical Necessity: Need for IV Antibiotics Post Hospital Care: D/C Traffic And Transport Planner Documentation - Plan Summary Plan Summary: antibiotic we'll repeat the CBC and Chem-7 in the morning
[2016-10-14] MEDS: METOPROLOL TARTRATE 25 MG TABLET PO SCH (10:19)
[2016-10-14] MEDS: MAGNESIUM OXIDE 400 MG TABLET PO SCH (10:20)
[2016-10-14] MEDS: ISOSORBIDE MONONITRATE 30 MG TAB.ER.24H PO SCH (10:20)
[2016-10-14] MEDS: DULOXETINE HCL 30 MG CAPSULE.DR PO SCH ×2 (10:20→17:57)
[2016-10-14] MEDS: LORATADINE 10 MG TABLET PO SCH (10:20)
[2016-10-14] MEDS: SPIRONOLACTONE 25 MG TABLET PO SCH (10:21)
[2016-10-14] MEDS: FUROSEMIDE 40 MG TABLET PO SCH (10:21)
[2016-10-14] MEDS: ASPIRIN 81 MG TABLET, CHEWABLE PO SCH (10:21)
[2016-10-14] MEDS: LOSARTAN POTASSIUM 50 MG TABLET PO SCH (10:22)
[2016-10-14] MEDS: NYSTATIN TOPICAL POWDER 15 GM TP SCH ×2 (10:23→17:58)
[2016-10-14] MEDS: CLOBETASOL PROPIONATE 0.05% CREAM 15 GM TP SCH ×2 (10:23→22:23)
[2016-10-14] MEDS ORDERED: NYSTATIN TOPICAL POWDER 15 GM TP PRN (10:28)
[2016-10-14] MEDS: PRAMIPEXOLE DI-HCL 0.25 MG TABLET PO SCH (22:17)
[2016-10-14] MEDS: ATORVASTATIN CALCIUM 10 MG TABLET PO SCH (22:17)
[2016-10-14] MEDS: INSULIN LISPRO 100 UNIT/ML 3 ML VIAL SUBCUT PRN (22:17)
[2016-10-14] MEDS: VANCOMYCIN HCL 1,000 MG in DEXTROSE 5%-WATER 250 ML IV SCH (22:18)
[2016-10-15] MEDS: PIPERACILLIN SODIUM/TAZOBACTAM 2.25 GM in NORMAL SALINE 50 ML IV SCH ×4 (03:35→21:17)
[2016-10-15] MEDS: IPRATROPIUM/ALBUTEROL 0.5-2.5 MG/3 ML AMPUL NEB SCH ×6 (03:51→23:24)
[2016-10-15 04:47] LABS: ABSOLUTE BASOPHILS # (AUTO) 0.1 10^3/uL (0.0-0.2); ABSOLUTE EOSINOPHILS # (AUTO) 0.4 10^3/uL (0.0-0.6); ABSOLUTE LYMPHOCYTES (AUTO) 1.5 10^3/uL (0.5-4.7); ABSOLUTE MONOCYTES (AUTO) 0.5 10^3/uL (0.1-1.4); ABSOLUTE NEUT (AUTO) 4.5 10^3/uL (1.7-8.2); BASOPHILS % (AUTO) 0.8 % (0-2); HEMATOCRIT 27.4 % (36.0-47.0); HEMOGLOBIN 9.2 g/dL (12.0-15.5); HGB HCT DIFFERENCE 0.2; LYMPHOCYTES % (AUTO) 21.1 % (13-45); MEAN CORPUSCULAR HEMOGLOBIN 30.2 pg (27.0-33.4); MEAN CORPUSCULAR HGB CONC 33.6 g/dL (32.0-36.0); MEAN CORPUSCULAR VOLUME 90 fl (80-97); MONOCYTES % (AUTO) 7.2 % (3-13); RED BLOOD COUNT 3.05 10^6/uL (3.72-5.28); RED CELL DISTRIBUTION WIDTH 14.9 % (11.5-14.0); SEGMENTED NEUTROPHILS % (AUTO) 64.9 % (42-78); WHITE BLOOD COUNT 6.9 10^3/uL (4.0-10.5)
[2016-10-15 04:58] LABS: ANION GAP 13 (5-19); BLOOD UREA NITROGEN 23 mg/dL (7-20); CALCIUM 8.4 mg/dL (8.4-10.2); CARBON DIOXIDE 24 mmol/L (22-30); CHLORIDE 106 mmol/L (98-107); GLUCOSE 108 mg/dL (75-110); POTASSIUM 4.3 mmol/L (3.6-5.0); SODIUM 142.5 mmol/L (137-145)
[2016-10-15] MEDS: HEPARIN SOD (PORCINE) 5,000 UNIT/ML 1 ML SYRINGE SUBCUT SCH ×3 (06:10→22:51)
[2016-10-15] MEDS: OXYCODONE-ACETAMINOPHEN 5-325 MG TABLET PO PRN ×3 (08:07→22:51)
[2016-10-15] MEDS ORDERED: ERGOCALCIFEROL (VITAMIN D2) 50000 UNIT (1.25 MG) CAPSULE PO SCH (09:00)
--- NOTE | 2016-10-15 09:21 | PDOC PROGRESS REPORT ---
Subjective Progress Note for:: 10/15/16 Subjective:: Patient is currently doing fair denied any chest pain denied any shortness of breath Patient complains of itchy small rash in the back and the front which patient no ongoing problems and according to the patient she has allergies to the pain medication in the past in the last month patient is currently taking the antihistamine and also in the steroid ointment but I did not see any other new rash at this point Physical Exam Vital Signs: Temp Pulse Resp BP Pulse Ox 98.2 F 82 22 H 122/51 L 92 10/15/16 07:29 10/15/16 07:29 10/15/16 07:29 10/15/16 07:29 10/15/16 07:29 Intake & Output 10/14/16 10/15/16 10/16/16 06:59 06:59 06:59 Intake Total 2806 3513 Output Total 1650 4000 Balance 1156 -487 Weight 96 kg 96.5 kg General appearance: PRESENT: no acute distress Eye exam: PRESENT: PERRLA Respiratory exam: PRESENT: clear to auscultation julio GI/Abdominal exam: PRESENT: normal bowel sounds, soft Extremities exam: PRESENT: pedal edema Additional comments: Bilateral lower extremity redness Neurological exam: PRESENT: alert, awake, oriented to person, oriented to place , oriented to time, oriented to situation Skin exam: PRESENT: rash Results Laboratory Results: 10/15/16 04:29 10/15/16 04:29 10/15/16 10/15/16 04:29 04:29 WBC 6.9 RBC 3.05 L Hgb 9.2 L Hct 27.4 L MCV 90 MCH 30.2 MCHC 33.6 RDW 14.9 H Plt Count 219 Seg Neutrophils % 64.9 Lymphocytes % 21.1 Monocytes % 7.2 Eosinophils % 6.0 Basophils % 0.8 Absolute Neutrophils 4.5 Absolute Lymphocytes 1.5 Absolute Monocytes 0.5 Absolute Eosinophils 0.4 Absolute Basophils 0.1 Sodium 142.5 Potassium 4.3 Chloride 106 Carbon Dioxide 24 Anion Gap 13 BUN 23 H Creatinine 1.10 Est GFR ( Amer) 57 L Est GFR (Non-Af Amer) 47 L Glucose 108 Calcium 8.4 10/13/16 05:35 Leg - Left Cellulitis Gram Stain - Final Impressions: Chest CT 10/12/16 00:00 IMPRESSION: Slightly worsened mild interstitial and airspace opacity probably due to chronic interstitial lung disease. Differential diagnosis includes pulmonary edema. Consider obtaining current chest radiographs. Lower Extremity MRI 10/12/16 00:00 IMPRESSION: Moderate subcutaneous soft tissue edema of the mid and distal left lower leg. No MRI evidence of compartment syndrome. No MRI evidence of osteomyelitis. Assessment & Plan - Diagnosis (1) Cellulitis of leg, left Is this a current diagnosis for this admission?: YesPlan: Continues IV antibiotic (2) Chronic obstructive lung disease Qualifiers: COPD type: COPD with acute exacerbation Qualified Code(s): J44.1 - Chronic obstructive pulmonary disease with (acute) exacerbation Is this a current diagnosis for this admission?: YesPlan: nebulizer treatments (3) Coronary artery disease Qualifiers: Coronary Disease-Associated Artery/Lesion type: [place] artery [place] vs. transplanted heart: [place] heart Associated angina: without angina Qualified Code(s): I25.10 - Atherosclerotic heart disease of [place] coronary artery without angina pectoris Is this a current diagnosis for this admission?: Yes (4) Morbid obesity due to excess calories Is this a current diagnosis for this admission?: Yes (6) Diabetes mellitus Qualifiers: Diabetes mellitus type: type 2 Diabetes mellitus complication status: with neurologic complications Diabetes mellitus complication detail: with polyneuropathy Diabetes mellitus manager intermediate insulin use: without assisted use Qualified Code(s): E11.42 - Type 2 diabetes mellitus with diabetic polyneuropathy; Z79.4 - equipment operator intermodal yard (current) use of insulin Is this a current diagnosis for this admission?: Yes - Time Time Spent with patient: 15-24 minutes Medications reviewed and adjusted accordingly: Yes Anticipated discharge: Home Within: Other - Inpatient Certification Medical Necessity: Need Close Monitoring Due to Risk of Patient Decompensation Post Hospital Care: D/C Retail Helper Documentation - Plan Summary Plan Summary: At this point continues IV antibiotic and I do not see any new rashes so do not thinks of any antibiotic-related any issue at this point. Continues to patients in the current other medications
[2016-10-15] MEDS: DULOXETINE HCL 30 MG CAPSULE.DR PO SCH ×2 (10:51→17:48)
[2016-10-15] MEDS: ASPIRIN 81 MG TABLET, CHEWABLE PO SCH (10:51)
[2016-10-15] MEDS: MAGNESIUM OXIDE 400 MG TABLET PO SCH (10:51)
[2016-10-15] MEDS: SPIRONOLACTONE 25 MG TABLET PO SCH (10:51)
[2016-10-15] MEDS: LOSARTAN POTASSIUM 50 MG TABLET PO SCH (10:52)
[2016-10-15] MEDS: ISOSORBIDE MONONITRATE 30 MG TAB.ER.24H PO SCH (10:52)
[2016-10-15] MEDS: FUROSEMIDE 40 MG TABLET PO SCH (10:52)
[2016-10-15] MEDS: LORATADINE 10 MG TABLET PO SCH (10:52)
[2016-10-15] MEDS: METOPROLOL TARTRATE 25 MG TABLET PO SCH (10:52)
[2016-10-15] MEDS: NYSTATIN TOPICAL POWDER 15 GM TP SCH ×2 (10:53→17:50)
[2016-10-15] MEDS: NORMAL SALINE 1000 ML 1,000 ML IV PRN (10:53)
[2016-10-15] MEDS: CLOBETASOL PROPIONATE 0.05% CREAM 15 GM TP SCH ×2 (10:53→22:52)
[2016-10-15] MEDS: INSULIN LISPRO 100 UNIT/ML 3 ML VIAL SUBCUT PRN ×2 (12:32→22:51)
[2016-10-15] MEDS: PRAMIPEXOLE DI-HCL 0.25 MG TABLET PO SCH (22:50)
[2016-10-15] MEDS: ATORVASTATIN CALCIUM 10 MG TABLET PO SCH (22:51)
[2016-10-15] MEDS: VANCOMYCIN HCL 1,000 MG in DEXTROSE 5%-WATER 250 ML IV SCH (22:52)
[2016-10-16] MEDS: PIPERACILLIN SODIUM/TAZOBACTAM 2.25 GM in NORMAL SALINE 50 ML IV SCH ×4 (02:51→21:01)
[2016-10-16] MEDS: NORMAL SALINE 1000 ML 1,000 ML IV PRN ×2 (02:53→18:23)
[2016-10-16] MEDS: IPRATROPIUM/ALBUTEROL 0.5-2.5 MG/3 ML AMPUL NEB SCH ×6 (04:01→23:47)
[2016-10-16] MEDS: HEPARIN SOD (PORCINE) 5,000 UNIT/ML 1 ML SYRINGE SUBCUT SCH ×3 (06:20→21:22)
[2016-10-16 06:41] LABS: ABSOLUTE EOSINOPHILS # (AUTO) 0.4 10^3/uL (0.0-0.6); ABSOLUTE LYMPHOCYTES (AUTO) 1.4 10^3/uL (0.5-4.7); ABSOLUTE MONOCYTES (AUTO) 0.5 10^3/uL (0.1-1.4); ABSOLUTE NEUT (AUTO) 4.9 10^3/uL (1.7-8.2); BASOPHILS % (AUTO) 0.7 % (0-2); HEMATOCRIT 26.8 % (36.0-47.0); HEMOGLOBIN 8.9 g/dL (12.0-15.5); HGB HCT DIFFERENCE -0.1; LYMPHOCYTES % (AUTO) 19.4 % (13-45); MEAN CORPUSCULAR HEMOGLOBIN 30.1 pg (27.0-33.4); MEAN CORPUSCULAR HGB CONC 33.2 g/dL (32.0-36.0); MEAN CORPUSCULAR VOLUME 91 fl (80-97); MONOCYTES % (AUTO) 6.4 % (3-13); RED BLOOD COUNT 2.96 10^6/uL (3.72-5.28); RED CELL DISTRIBUTION WIDTH 15.6 % (11.5-14.0); SEGMENTED NEUTROPHILS % (AUTO) 67.5 % (42-78); WHITE BLOOD COUNT 7.2 10^3/uL (4.0-10.5)
[2016-10-16 07:20] LABS: ANION GAP 9 (5-19); BLOOD UREA NITROGEN 18 mg/dL (7-20); CALCIUM 8.5 mg/dL (8.4-10.2); CARBON DIOXIDE 27 mmol/L (22-30); CHLORIDE 107 mmol/L (98-107); CREATININE RESULT 1.14 mg/dL (0.52-1.25); GLUCOSE 116 mg/dL (75-110); POTASSIUM 4.1 mmol/L (3.6-5.0); SODIUM 143.3 mmol/L (137-145)
[2016-10-16] MEDS: OXYCODONE-ACETAMINOPHEN 5-325 MG TABLET PO PRN ×2 (08:38→16:49)
[2016-10-16] MEDS: SPIRONOLACTONE 25 MG TABLET PO SCH (10:28)
[2016-10-16] MEDS: DULOXETINE HCL 30 MG CAPSULE.DR PO SCH ×2 (10:28→17:03)
[2016-10-16] MEDS: MAGNESIUM OXIDE 400 MG TABLET PO SCH (10:28)
[2016-10-16] MEDS: ISOSORBIDE MONONITRATE 30 MG TAB.ER.24H PO SCH (10:28)
[2016-10-16] MEDS: LORATADINE 10 MG TABLET PO SCH (10:29)
[2016-10-16] MEDS: ASPIRIN 81 MG TABLET, CHEWABLE PO SCH (10:29)
[2016-10-16] MEDS: CLOBETASOL PROPIONATE 0.05% CREAM 15 GM TP SCH ×2 (10:32→21:23)
[2016-10-16] MEDS: NYSTATIN TOPICAL POWDER 15 GM TP SCH ×2 (10:36→17:06)
[2016-10-16] MEDS: FUROSEMIDE 40 MG TABLET PO SCH (10:36)
[2016-10-16] MEDS: LOSARTAN POTASSIUM 50 MG TABLET PO SCH (10:36)
[2016-10-16] MEDS: METOPROLOL TARTRATE 25 MG TABLET PO SCH (10:36)
[2016-10-16] MEDS: INSULIN LISPRO 100 UNIT/ML 3 ML VIAL SUBCUT PRN ×3 (12:41→21:22)
--- NOTE | 2016-10-16 19:29 | PDOC PROGRESS REPORT ---
Subjective Progress Note for:: 10/16/16 Subjective:: She was seen by the bedside, she is wheezing a lot with shortness of breath. IV Solu-Medrol will be added to drug regimen Physical Exam Vital Signs: Temp Pulse Resp BP Pulse Ox 97.7 F 94 24 H 119/51 L 98 10/16/16 16:51 10/16/16 16:51 10/16/16 16:51 10/16/16 16:51 10/16/16 16:51 Intake & Output 10/15/16 10/16/16 10/17/16 06:59 06:59 06:59 Intake Total 3513 2556 1916 Output Total 4000 3450 800 Balance -487 894 1116 Weight 96.5 kg General appearance: PRESENT: obese Eye exam: PRESENT: PERRLA Respiratory exam: PRESENT: wheezes Cardiovascular exam: PRESENT: +S1, +S2 GI/Abdominal exam: PRESENT: soft Neurological exam: PRESENT: alert, CN II-XII grossly intact Results Laboratory Results: 10/16/16 06:15 10/16/16 06:15 10/16/16 10/16/16 06:15 06:15 WBC 7.2 RBC 2.96 L Hgb 8.9 L Hct 26.8 L MCV 91 MCH 30.1 MCHC 33.2 RDW 15.6 H Plt Count 225 Seg Neutrophils % 67.5 Lymphocytes % 19.4 Monocytes % 6.4 Eosinophils % 6.0 Basophils % 0.7 Absolute Neutrophils 4.9 Absolute Lymphocytes 1.4 Absolute Monocytes 0.5 Absolute Eosinophils 0.4 Absolute Basophils 0.0 Sodium 143.3 Potassium 4.1 Chloride 107 Carbon Dioxide 27 Anion Gap 9 BUN 18 Creatinine 1.14 Est GFR ( Amer) 55 L Est GFR (Non-Af Amer) 45 L Glucose 116 H Calcium 8.5 10/13/16 15:10 Abdomen - Abscess Gram Stain - Final 10/13/16 15:10 Abdomen - Abscess Wound Culture - Final Staphylococcus Aureus Enterococcus Faecalis(Group D) Skin Jovana No Anaerobic Organisms 10/13/16 23:25 Clean Catch Midstream Urine Culture - Final NO GROWTH 2 DAYS 10/13/16 05:35 Leg - Left Cellulitis Gram Stain - Final 10/13/16 05:35 Leg - Left Cellulitis Wound Culture - Final Staphylococcus Aureus Skin Jovana Impressions: Chest CT 10/12/16 00:00 IMPRESSION: Slightly worsened mild interstitial and airspace opacity probably due to chronic interstitial lung disease. Differential diagnosis includes pulmonary edema. Consider obtaining current chest radiographs. Lower Extremity MRI 10/12/16 00:00 IMPRESSION: Moderate subcutaneous soft tissue edema of the mid and distal left lower leg. No MRI evidence of compartment syndrome. No MRI evidence of osteomyelitis. Assessment & Plan - Diagnosis (1) Cellulitis of leg, left Is this a current diagnosis for this admission?: Yes (2) Chronic obstructive lung disease Qualifiers: COPD type: COPD with acute exacerbation Qualified Code(s): J44.1 - Chronic obstructive pulmonary disease with (acute) exacerbation Is this a current diagnosis for this admission?: YesPlan: Start Solu-Medrol 40 mg IV every 8 (3) Pneumonia Qualifiers: Pneumonia type: due to unspecified organism Laterality: unspecified laterality Lung location: unspecified part of lung Qualified Code(s) : J18.9 - Pneumonia, unspecified organism Is this a current diagnosis for this admission?: Yes (4) Coronary artery disease Qualifiers: Coronary Disease-Associated Artery/Lesion type: [place] artery [place] vs. transplanted heart: [place] heart Associated angina: without angina Qualified Code(s): I25.10 - Atherosclerotic heart disease of [place] coronary artery without angina pectoris Is this a current diagnosis for this admission?: Yes (5) Morbid obesity due to excess calories Is this a current diagnosis for this admission?: Yes (6) Diabetes mellitus Qualifiers: Diabetes mellitus type: type 2 Diabetes mellitus complication status: with neurologic complications Diabetes mellitus complication detail: with polyneuropathy Diabetes mellitus detention insulin use: without supersonic engineer use Qualified Code(s): E11.42 - Type 2 diabetes mellitus with diabetic polyneuropathy; Z79.4 - [facility] (current) use of insulin Is this a current diagnosis for this admission?: Yes
[2016-10-16] MEDS ORDERED: METHYLPREDNISOLONE INJ 40 MG/1 ML SDV IV ONE (21:00)
[2016-10-16] MEDS: ATORVASTATIN CALCIUM 10 MG TABLET PO SCH (21:23)
[2016-10-16] MEDS: PRAMIPEXOLE DI-HCL 0.25 MG TABLET PO SCH (21:23)
[2016-10-16] MEDS ORDERED: PERMETHRIN 5% CREAM 60 GM TP ONE (22:00)
[2016-10-17] MEDS: PIPERACILLIN SODIUM/TAZOBACTAM 2.25 GM in NORMAL SALINE 50 ML IV SCH ×4 (03:22→20:40)
[2016-10-17] MEDS: IPRATROPIUM/ALBUTEROL 0.5-2.5 MG/3 ML AMPUL NEB SCH ×6 (04:50→23:57)
[2016-10-17 06:12] LABS: ANION GAP 9 (5-19); BLOOD UREA NITROGEN 15 mg/dL (7-20); CALCIUM 8.6 mg/dL (8.4-10.2); CARBON DIOXIDE 25 mmol/L (22-30); CHLORIDE 107 mmol/L (98-107); CREATININE RESULT 1.05 mg/dL (0.52-1.25); GLUCOSE 237 mg/dL (75-110)
[2016-10-17 06:14] LABS: POTASSIUM 4.7 mmol/L (3.6-5.0)
[2016-10-17] MEDS: METHYLPREDNISOLONE INJ 40 MG/1 ML SDV IV SCH ×3 (06:51→22:51)
[2016-10-17] MEDS: HEPARIN SOD (PORCINE) 5,000 UNIT/ML 1 ML SYRINGE SUBCUT SCH ×3 (06:51→22:51)
[2016-10-17] MEDS: INSULIN LISPRO 100 UNIT/ML 3 ML VIAL SUBCUT PRN ×4 (08:48→22:51)
[2016-10-17] MEDS: OXYCODONE-ACETAMINOPHEN 5-325 MG TABLET PO PRN ×2 (10:22→17:03)
[2016-10-17] MEDS: LORATADINE 10 MG TABLET PO SCH (10:23)
[2016-10-17] MEDS: ASPIRIN 81 MG TABLET, CHEWABLE PO SCH (10:23)
[2016-10-17] MEDS: FUROSEMIDE 40 MG TABLET PO SCH (10:24)
[2016-10-17] MEDS: SPIRONOLACTONE 25 MG TABLET PO SCH (10:25)
[2016-10-17] MEDS: ISOSORBIDE MONONITRATE 30 MG TAB.ER.24H PO SCH (10:25)
[2016-10-17] MEDS: METOPROLOL TARTRATE 25 MG TABLET PO SCH (10:25)
[2016-10-17] MEDS: LOSARTAN POTASSIUM 50 MG TABLET PO SCH (10:26)
[2016-10-17] MEDS: MAGNESIUM OXIDE 400 MG TABLET PO SCH (10:26)
[2016-10-17] MEDS: DULOXETINE HCL 30 MG CAPSULE.DR PO SCH ×2 (10:27→17:05)
[2016-10-17] MEDS: NORMAL SALINE 1000 ML 1,000 ML IV PRN (10:28)
[2016-10-17] MEDS: CLOBETASOL PROPIONATE 0.05% CREAM 15 GM TP SCH ×2 (10:35→22:51)
[2016-10-17] MEDS: NYSTATIN TOPICAL POWDER 15 GM TP SCH ×2 (10:36→17:03)
--- NOTE | 2016-10-17 20:44 | PDOC PROGRESS REPORT ---
Subjective Progress Note for:: 10/17/16 Subjective:: She was seen by the bedside, I spoke to the patient's daughter about plan of care for her mother. She is responding to the IV Solu-Medrol Physical Exam Vital Signs: Temp Pulse Resp BP Pulse Ox 97.6 F 103 H 16 110/46 L 96 10/17/16 16:03 10/17/16 19:00 10/17/16 16:20 10/17/16 16:03 10/17/16 16:20 Intake & Output 10/16/16 10/17/16 10/18/16 06:59 06:59 06:59 Intake Total 2556 3328 1485 Output Total 3450 2150 400 Balance -894 1178 1085 Weight 99.2 kg General appearance: PRESENT: no acute distress Eye exam: PRESENT: PERRLA Respiratory exam: PRESENT: wheezes Cardiovascular exam: PRESENT: +S1, +S2 Results Laboratory Results: 10/16/16 06:15 10/17/16 05:28 10/17/16 05:28 Sodium 141.0 Potassium 4.7 Chloride 107 Carbon Dioxide 25 Anion Gap 9 BUN 15 Creatinine 1.05 Est GFR ( Amer) > 60 Est GFR (Non-Af Amer) 50 L Glucose 237 H Calcium 8.6 10/13/16 15:10 Perirectal Gram Stain - Final 10/13/16 15:10 Perirectal Wound Culture - Final Proteus Mirabilis Enterococcus Faecalis(Group D) Bacteroides Fragilis Peptostreptococcus Species Skin Jovana Impressions: Chest CT 10/12/16 00:00 IMPRESSION: Slightly worsened mild interstitial and airspace opacity probably due to chronic interstitial lung disease. Differential diagnosis includes pulmonary edema. Consider obtaining current chest radiographs. Lower Extremity MRI 10/12/16 00:00 IMPRESSION: Moderate subcutaneous soft tissue edema of the mid and distal left lower leg. No MRI evidence of compartment syndrome. No MRI evidence of osteomyelitis. Assessment & Plan - Diagnosis (1) Cellulitis of leg, left Is this a current diagnosis for this admission?: Yes (2) Chronic obstructive lung disease Qualifiers: COPD type: COPD with acute exacerbation Qualified Code(s): J44.1 - Chronic obstructive pulmonary disease with (acute) exacerbation Is this a current diagnosis for this admission?: Yes (3) Pneumonia Qualifiers: Pneumonia type: due to unspecified organism Laterality: unspecified laterality Lung location: unspecified part of lung Qualified Code(s) : J18.9 - Pneumonia, unspecified organism Is this a current diagnosis for this admission?: Yes (4) Coronary artery disease Qualifiers: Coronary Disease-Associated Artery/Lesion type: [place] artery [place] vs. transplanted heart: [place] heart Associated angina: without angina Qualified Code(s): I25.10 - Atherosclerotic heart disease of [place] coronary artery without angina pectoris Is this a current diagnosis for this admission?: Yes (5) Morbid obesity due to excess calories Is this a current diagnosis for this admission?: Yes (6) Diabetes mellitus Qualifiers: Diabetes mellitus type: type 2 Diabetes mellitus complication status: with neurologic complications Diabetes mellitus complication detail: with polyneuropathy Diabetes mellitus intermediate teacher insulin use: without intermediate teacher use Qualified Code(s): E11.42 - Type 2 diabetes mellitus with diabetic polyneuropathy; Z79.4 - intermediate teacher (current) use of insulin Is this a current diagnosis for this admission?: Yes - Plan Summary Plan Summary: She will continue IV Solu-Medrol and other medication
[2016-10-17] MEDS: PRAMIPEXOLE DI-HCL 0.25 MG TABLET PO SCH (22:51)
[2016-10-17] MEDS: ATORVASTATIN CALCIUM 10 MG TABLET PO SCH (22:51)
[2016-10-18] MEDS: PIPERACILLIN SODIUM/TAZOBACTAM 2.25 GM in NORMAL SALINE 50 ML IV SCH ×4 (02:32→21:11)
[2016-10-18] MEDS: IPRATROPIUM/ALBUTEROL 0.5-2.5 MG/3 ML AMPUL NEB SCH ×5 (03:00→20:50)
[2016-10-18] MEDS: NORMAL SALINE 1000 ML 1,000 ML IV PRN (03:50)
[2016-10-18] MEDS: METHYLPREDNISOLONE INJ 40 MG/1 ML SDV IV SCH ×3 (06:17→21:11)
[2016-10-18] MEDS: HEPARIN SOD (PORCINE) 5,000 UNIT/ML 1 ML SYRINGE SUBCUT SCH ×3 (06:17→21:11)
[2016-10-18] MEDS: INSULIN LISPRO 100 UNIT/ML 3 ML VIAL SUBCUT PRN ×4 (08:19→23:18)
[2016-10-18] MEDS: OXYCODONE-ACETAMINOPHEN 5-325 MG TABLET PO PRN ×2 (09:01→18:25)
[2016-10-18] MEDS ORDERED: FENTANYL 50 MCG/HR PATCH.TD72 TD SCH (10:00)
[2016-10-18] MEDS: DULOXETINE HCL 30 MG CAPSULE.DR PO SCH ×2 (10:15→17:17)
[2016-10-18] MEDS: LOSARTAN POTASSIUM 50 MG TABLET PO SCH (10:16)
[2016-10-18] MEDS: ASPIRIN 81 MG TABLET, CHEWABLE PO SCH (10:17)
[2016-10-18] MEDS: FUROSEMIDE 40 MG TABLET PO SCH (10:17)
[2016-10-18] MEDS: MAGNESIUM OXIDE 400 MG TABLET PO SCH (10:18)
[2016-10-18] MEDS: SPIRONOLACTONE 25 MG TABLET PO SCH (10:18)
[2016-10-18] MEDS: LORATADINE 10 MG TABLET PO SCH (10:18)
[2016-10-18] MEDS: ISOSORBIDE MONONITRATE 30 MG TAB.ER.24H PO SCH (10:19)
[2016-10-18] MEDS: METOPROLOL TARTRATE 25 MG TABLET PO SCH (10:19)
[2016-10-18] MEDS: NYSTATIN TOPICAL POWDER 15 GM TP SCH ×2 (10:21→17:15)
[2016-10-18] MEDS: CLOBETASOL PROPIONATE 0.05% CREAM 15 GM TP SCH ×2 (10:22→21:12)
--- NOTE | 2016-10-18 17:33 | PDOC PROGRESS REPORT ---
Subjective Progress Note for:: 10/18/16 Subjective:: Patient seen by the bedside, she is wheezing but is improved. The lower extremity cellulitis is better Physical Exam Vital Signs: Temp Pulse Resp BP Pulse Ox 97.5 F 65 20 112/91 H 93 10/18/16 16:01 10/18/16 16:01 10/18/16 16:01 10/18/16 16:01 10/18/16 16:01 Intake & Output 10/17/16 10/18/16 10/19/16 06:59 06:59 06:59 Intake Total 3328 2594 881 Output Total 2150 800 500 Balance 1178 1794 381 Weight 99.2 kg 99.4 kg General appearance: PRESENT: obese Neck exam: PRESENT: full ROM Respiratory exam: PRESENT: wheezes Cardiovascular exam: PRESENT: RRR, +S1, +S2 Vascular exam: PRESENT: normal capillary refill GI/Abdominal exam: PRESENT: normal bowel sounds, soft Rectal exam: PRESENT: deferred Extremities exam: PRESENT: other - There is improved redness of the lower extremities Neurological exam: PRESENT: alert, awake, oriented to person, oriented to place , oriented to time, oriented to situation, CN II-XII grossly intact Psychiatric exam: PRESENT: appropriate affect, normal mood Skin exam: PRESENT: dry, intact, warm. ABSENT: cyanosis, rash Results Laboratory Results: 10/16/16 06:15 10/17/16 05:28 10/12/16 22:12 Blood Blood Culture - Final NO GROWTH IN 5 DAYS 10/12/16 20:38 Blood Blood Culture - Final NO GROWTH IN 5 DAYS Impressions: Chest CT 10/12/16 00:00 IMPRESSION: Slightly worsened mild interstitial and airspace opacity probably due to chronic interstitial lung disease. Differential diagnosis includes pulmonary edema. Consider obtaining current chest radiographs. Lower Extremity MRI 10/12/16 00:00 IMPRESSION: Moderate subcutaneous soft tissue edema of the mid and distal left lower leg. No MRI evidence of compartment syndrome. No MRI evidence of osteomyelitis. Assessment & Plan - Diagnosis (1) Cellulitis of leg, left Is this a current diagnosis for this admission?: Yes (2) Chronic obstructive lung disease Qualifiers: COPD type: COPD with acute exacerbation Qualified Code(s): J44.1 - Chronic obstructive pulmonary disease with (acute) exacerbation Is this a current diagnosis for this admission?: YesPlan: We continue Solu-Medrol CT chest without contrast ordered (3) Pneumonia Qualifiers: Pneumonia type: due to unspecified organism Laterality: unspecified laterality Lung location: unspecified part of lung Qualified Code(s) : J18.9 - Pneumonia, unspecified organism Is this a current diagnosis for this admission?: Yes (4) Coronary artery disease Qualifiers: Coronary Disease-Associated Artery/Lesion type: [place] artery [place] vs. transplanted heart: [place] heart Associated angina: without angina Qualified Code(s): I25.10 - Atherosclerotic heart disease of [place] coronary artery without angina pectoris Is this a current diagnosis for this admission?: Yes (5) Morbid obesity due to excess calories Is this a current diagnosis for this admission?: Yes (6) Diabetes mellitus Qualifiers: Diabetes mellitus type: type 2 Diabetes mellitus complication status: with neurologic complications Diabetes mellitus complication detail: with polyneuropathy Diabetes mellitus usp insulin use: without termite inspector use Qualified Code(s): E11.42 - Type 2 diabetes mellitus with diabetic polyneuropathy; Z79.4 - watermaster (current) use of insulin Is this a current diagnosis for this admission?: Yes
[2016-10-18] MEDS: METFORMIN HCL 500 MG TABLET PO SCH (18:19)
[2016-10-18] MEDS: SITAGLIPTIN PHOSPHATE 25 MG TABLET PO SCH (18:55)
[2016-10-18] MEDS: ATORVASTATIN CALCIUM 10 MG TABLET PO SCH (21:11)
[2016-10-18] MEDS: PRAMIPEXOLE DI-HCL 0.25 MG TABLET PO SCH (21:11)
[2016-10-19] MEDS: IPRATROPIUM/ALBUTEROL 0.5-2.5 MG/3 ML AMPUL NEB SCH ×5 (00:03→16:01)
[2016-10-19] MEDS: PIPERACILLIN SODIUM/TAZOBACTAM 2.25 GM in NORMAL SALINE 50 ML IV SCH ×3 (02:59→14:13)
[2016-10-19] MEDS: HEPARIN SOD (PORCINE) 5,000 UNIT/ML 1 ML SYRINGE SUBCUT SCH ×2 (05:23→13:17)
[2016-10-19] MEDS: METHYLPREDNISOLONE INJ 40 MG/1 ML SDV IV SCH ×2 (05:23→13:18)
[2016-10-19] MEDS: INSULIN LISPRO 100 UNIT/ML 3 ML VIAL SUBCUT PRN ×2 (07:31→11:35)
[2016-10-19] MEDS: SITAGLIPTIN PHOSPHATE 25 MG TABLET PO SCH ×2 (07:33→16:30)
[2016-10-19] MEDS: METFORMIN HCL 500 MG TABLET PO SCH ×2 (07:33→16:29)
[2016-10-19] MEDS: ASPIRIN 81 MG TABLET, CHEWABLE PO SCH (09:58)
[2016-10-19] MEDS: DULOXETINE HCL 30 MG CAPSULE.DR PO SCH ×2 (09:58→17:44)
[2016-10-19] MEDS: LOSARTAN POTASSIUM 50 MG TABLET PO SCH (09:58)
[2016-10-19] MEDS: ISOSORBIDE MONONITRATE 30 MG TAB.ER.24H PO SCH (09:59)
[2016-10-19] MEDS: LORATADINE 10 MG TABLET PO SCH (09:59)
[2016-10-19] MEDS: SPIRONOLACTONE 25 MG TABLET PO SCH (09:59)
[2016-10-19] MEDS: FUROSEMIDE 40 MG TABLET PO SCH (09:59)
[2016-10-19] MEDS: METOPROLOL TARTRATE 25 MG TABLET PO SCH (10:00)
[2016-10-19] MEDS: MAGNESIUM OXIDE 400 MG TABLET PO SCH (10:05)
[2016-10-19] MEDS: NYSTATIN TOPICAL POWDER 15 GM TP SCH ×2 (10:06→17:42)
[2016-10-19] MEDS: CLOBETASOL PROPIONATE 0.05% CREAM 15 GM TP SCH (10:06)
[2016-10-19 19:00] VITALS: BP 88/36
--- NOTE | 2016-10-19 19:57 | PDOC DISCHARGE SUMMARY ---
General - Admit/Disc Date/PCP Admission Date/Primary Care Provider: 10/12/16 19:14 DENICE MORRIS MD Discharge Date: 10/19/16 - Discharge Diagnosis (1) Cellulitis of leg, left Is this a current diagnosis for this admission?: Yes (2) Chronic obstructive lung disease Is this a current diagnosis for this admission?: Yes (3) Pneumonia Is this a current diagnosis for this admission?: Yes (4) Coronary artery disease Is this a current diagnosis for this admission?: Yes (5) Morbid obesity due to excess calories Is this a current diagnosis for this admission?: Yes (6) Diabetes mellitus Is this a current diagnosis for this admission?: Yes (7) Acute exacerbation of chronic obstructive pulmonary disease (COPD) Is this a current diagnosis for this admission?: Yes - Additional Information Discharge Diet: Diabetic Discharge Activity: Activity As Tolerated, Balance Activity w/Rest Home Medications: Loratadine [Claritin 10 mg Tablet] 10 mg PO DAILY 03/05/13 Pramipexole Di-HCl [Mirapex 0.25 mg Tablet] 0.25 mg PO QHS 03/05/13 Losartan Potassium 100 mg PO DAILY 09/12/14 Isosorbide Mononitrate [Imdur 30 mg Tablet.er] 30 mg PO DAILY 04/17/15 Duloxetine HCl [Cymbalta] 60 mg PO BID 08/27/15 Albuterol Sulfate [Ventolin 0.083% Neb 2.5 mg/3 mL Ampul] 2.5 mg NEB RTQ8HP PRN 09/15/16 Aspirin [Aspirin 81 mg Chewable Tablet] 81 mg PO DAILY 09/15/16 Magnesium Oxide [Mag-Ox 400 mg Tablet] 400 mg PO DAILY 09/15/16 Metoprolol Tartrate [Lopressor 25 mg Tablet] 25 mg PO DAILY 09/15/16 Ergocalciferol (Vitamin D2) [Vitamin D2] 50,000 unit PO HURST 10/12/16 Fentanyl [Duragesic 50 Mcg/Hr Transdermal Patch] 1 each TD Q3D 10/12/16 Furosemide [Lasix] 40 mg PO DAILY 10/12/16 Linagliptin/Metformin HCl [Jentadueto 2.5 mg-1000 mg Tab] 1 tab PO BID 10/12/16 Pravastatin Sodium 40 mg PO QHS 10/12/16 Spironolactone 25 mg PO DAILY 10/12/16 Prednisone [Deltasone] 20 mg PO DAILY #0 tablet 10/19/16 History of Present Illness History of Present Illness: SINAN MONTGOMERY is a 86 year old female, she came to the office without any appointment, she has tremendous swelling of the left lower extremity with severe redness and tenderness on palpation of the leg, she was also audibly wheezing in the office I was very concerned especially for the likelihood of compartment syndrome of the left leg because of the severe swelling and the redness and also I was concerned she may also have pneumonia so she was admitted directly from the office into the hospital for management of the symptoms. MRI of the leg was done it showed moderate soft tissue subcutaneous edema there was no evidence of compartment syndrome and there was no evidence of osteomyelitis so this is probably cellulitis. CT chest without contrast was done he showed mild interstitial and scattered ground glass airspace patchiness Hospital Course Hospital Course: She was admitted because of left lower extremity swelling and redness does suggest cellulitis but compartment syndrome cannot be ruled out MRI of the leg was done on there was no MRI evidence of compartment syndrome. She was treated empirically with IV antibiotic, Zosyn and vancomycin to cover MRSA and gram- negative organisms. Hospital course was complicated with pneumonia versus COPD exacerbation CT chest was done that suggest ground glass opacities ,subsequent CT chest was done that showed chronic scarring in the lung. She was treated with IV Solu-Medrol 40 mg IV every 8 and subsequently transitioned to p.o. prednisone. She had a skin lesion that looks suspicious for scabies ,though not confirmed scabies, she was empirically treated with Permethrin, and there was improvement in the skin lesion. Physical Exam Vital Signs: Temp Pulse Resp BP Pulse Ox 98.0 F 72 20 88/36 L 98 10/19/16 18:54 10/19/16 18:54 10/19/16 18:54 10/19/16 18:54 10/19/16 18:54 Intake & Output 10/18/16 10/19/16 10/20/16 06:59 06:59 06:59 Intake Total 7684 5406 765 Output Total 800 1925 Balance 1794 521 765 Weight 99.4 kg 101 kg General appearance: PRESENT: no acute distress Eye exam: PRESENT: PERRLA Respiratory exam: PRESENT: wheezes Cardiovascular exam: PRESENT: +S1, +S2 GI/Abdominal exam: PRESENT: soft Neurological exam: PRESENT: alert Results Laboratory Results: 10/16/16 06:15 10/17/16 05:28 Impressions: Lower Extremity MRI 10/12/16 00:00 IMPRESSION: Moderate subcutaneous soft tissue edema of the mid and distal left lower leg. No MRI evidence of compartment syndrome. No MRI evidence of osteomyelitis. Chest CT 10/18/16 00:00 IMPRESSION: There appear to be chronic interstitial changes with no focal infiltrates or masses. No significant interval change.
== END 2016-10-19 19:15 | disposition home health service (06) | DRG 602 ==
LOC: 3S 19:14 → UNDOADMIN 19:14 → 3S 10-14 07:50
PROVIDERS: ADMIT Internal Medicine; ATTEND Internal Medicine
DX: L03.116 Cellulitis of left lower limb (principal); B95.61 Methicillin susceptible Staphylococcus aureus infection as the cause of diseases classified elsewhere; J18.9 Pneumonia, unspecified organism; J44.1 Chronic obstructive pulmonary disease with (acute) exacerbation; J44.0 Chronic obstructive pulmonary disease with (acute) lower respiratory infection; D64.9 Anemia, unspecified; E11.9 Type 2 diabetes mellitus without complications; K21.9 Gastro-esophageal reflux disease without esophagitis; E78.5 Hyperlipidemia, unspecified; I25.10 Atherosclerotic heart disease of native coronary artery without angina pectoris; E03.9 Hypothyroidism, unspecified; E66.01 Morbid (severe) obesity due to excess calories; Z68.35 Body mass index [BMI] 35.0-35.9, adult; M19.90 Unspecified osteoarthritis, unspecified site; F32.9 Major depressive disorder, single episode, unspecified; Z79.84 Long term (current) use of oral hypoglycemic drugs; Z79.899 Other long term (current) drug therapy; I25.2 Old myocardial infarction; Z85.3 Personal history of malignant neoplasm of breast; Z95.1 Presence of aortocoronary bypass graft; Z90.49 Acquired absence of other specified parts of digestive tract; Z90.710 Acquired absence of both cervix and uterus; Z90.11 Acquired absence of right breast and nipple; Z96.641 Presence of right artificial hip joint; Z96.653 Presence of artificial knee joint, bilateral; Z87.891 Personal history of nicotine dependence; Z88.1 Allergy status to other antibiotic agents; Z88.8 Allergy status to other drugs, medicaments and biological substances
CPT/HCPCS: 36415; 71250; 80048; 80076; 80202; 81001; 82962; 85025; 85027; 87040; 87070; 87075; 87077; 87086; 87186; 87205; 94667; 94668; G8978-GP; G8979-GP; J1644; J1815; J2060; J2543; J2920; J3370; J3490; J7030; J7060; J7620

== ENCOUNTER 2016-10-31 13:11 | Inpatient (IN) | payer MEDICARE, MEDICAID ==
[2016-10-31] MEDS ORDERED: HEPARIN SOD (PORCINE) 1,000 UNIT/ML 10 ML VIAL IV ONE (16:35)
[2016-10-31] MEDS ORDERED: HEPARIN SOD (PORCINE) 1,000 UNIT/ML 10 ML VIAL IV PRN (16:35)
[2016-10-31] MEDS ORDERED: HEPARIN SODIUM,PORCINE/D5W 250 ML IV PRN (16:35)
[2016-10-31 17:32] LABS: ABSOLUTE BASOPHILS # (AUTO) 0.1 10^3/uL (0.0-0.2); ABSOLUTE EOSINOPHILS # (AUTO) 0.3 10^3/uL (0.0-0.6); ABSOLUTE LYMPHOCYTES (AUTO) 1.4 10^3/uL (0.5-4.7); ABSOLUTE MONOCYTES (AUTO) 0.6 10^3/uL (0.1-1.4); ABSOLUTE NEUT (AUTO) 8.7 10^3/uL (1.7-8.2); BASOPHILS % (AUTO) 0.5 % (0-2); EOSINOPHILS % (AUTO) 2.4 % (0-6); HEMATOCRIT 36.6 % (36.0-47.0); HEMOGLOBIN 11.7 g/dL (12.0-15.5); HGB HCT DIFFERENCE -1.5; LYMPHOCYTES % (AUTO) 12.8 % (13-45); MEAN CORPUSCULAR HEMOGLOBIN 29.3 pg (27.0-33.4); MEAN CORPUSCULAR HGB CONC 32.1 g/dL (32.0-36.0); MEAN CORPUSCULAR VOLUME 92 fl (80-97); MONOCYTES % (AUTO) 5.2 % (3-13); SEGMENTED NEUTROPHILS % (AUTO) 79.1 % (42-78); WHITE BLOOD COUNT 11.1 10^3/uL (4.0-10.5)
[2016-10-31 17:47] LABS: PARTIAL THROMBOPLASTIN TIME 26.8 SEC (23.5-35.8); PROTHROMBIN TIME 12.8 SEC (11.4-15.4)
[2016-10-31 17:50] LABS: D-DIMER 2.39 ug/mL (0.00-0.50)
[2016-10-31 17:51] LABS: MAGNESIUM 1.9 mg/dL (1.6-2.3); PHOSPHORUS 4.6 mg/dL (2.5-4.5)
[2016-10-31 18:23] LABS: THYROID STIMULATING HORMONE 2.86 uIU/mL (0.47-4.68)
[2016-11-01] MEDS ORDERED: ALBUTEROL SULFATE HFA (90 MCG/PUFF) 200 PUFF/8.5 GM MDI IH PRN (01:43)
[2016-11-01] MEDS ORDERED: (PENDING PHARMACY ID) (Oxycodone Hcl/Acetaminophen [Endocet 10-325 Mg Tablet] 1 TAB) PO PRN (01:52)
[2016-11-01] MEDS ORDERED: OXYMORPHONE HCL 5 MG PO PRN (01:52)
[2016-11-01] MEDS ORDERED: OXYCODONE HCL SR 10 MG TABLET PO PRN (02:41)
[2016-11-01] MEDS ORDERED: ACETAMINOPHEN 325 MG TABLET PO PRN (02:42)
[2016-11-01] MEDS ORDERED: FENTANYL 50 MCG/HR PATCH.TD72 TOP SCH (06:00)
[2016-11-01] MEDS: OXYCODONE-ACETAMINOPHEN 5-325 MG TABLET PO PRN ×3 (06:27→22:14)
[2016-11-01 06:40] LABS: HEMATOCRIT 36.9 % (36.0-47.0); HEMOGLOBIN 12.3 g/dL (12.0-15.5); MEAN CORPUSCULAR HGB CONC 33.3 g/dL (32.0-36.0); MEAN CORPUSCULAR VOLUME 90 fl (80-97); RED CELL DISTRIBUTION WIDTH 15.4 % (11.5-14.0); WHITE BLOOD COUNT 9.4 10^3/uL (4.0-10.5)
[2016-11-01 06:41] LABS: ALANINE AMINOTRANSFERASE 60 U/L (9-52); ALBUMIN 3.4 g/dL (3.5-5.0); ALKALINE PHOSPHATASE 121 U/L (38-126); ANION GAP 6 (5-19); ASPARTATE AMINO TRANSFERASE 41 U/L (14-36); BILIRUBIN,DIRECT 0.4 mg/dL (0.0-0.4); BILIRUBIN,TOTAL 0.7 mg/dL (0.2-1.3); BLOOD UREA NITROGEN 30 mg/dL (7-20); CALCIUM 8.8 mg/dL (8.4-10.2); CARBON DIOXIDE 29 mmol/L (22-30); CHLORIDE 100 mmol/L (98-107); CHOLESTEROL 174.61 mg/dL (0-200); CREATINE KINASE 24 U/L (30-135); CREATININE RESULT 1.24 mg/dL (0.52-1.25); Direct HDL 82 mg/dL (>40); GLUCOSE 157 mg/dL (75-110); POTASSIUM 4.5 mmol/L (3.6-5.0); SODIUM 135.1 mmol/L (137-145); TRIGLYCERIDES 229 mg/dL (<150)
[2016-11-01 06:52] LABS: BAND NEUTROPHILS % (MANUAL) 4 % (3-5); BASOPHILS % (MANUAL) 0 % (0-2); DIRECT LDL 58 mg/dL (<100); EOSINOPHILS % (MANUAL) 3 % (0-6); LYMPHOCYTES % (MANUAL) 18 % (13-45); TOTAL CELLS COUNTED 100
[2016-11-01 06:53] LABS: VLDL CHOLESTEROL 45.8 mg/dL (10-31)
[2016-11-01 06:54] LABS: ANISOCYTOSIS 1+; TOXIC GRANULATION SLIGHT
[2016-11-01] MEDS: OXYCODONE HCL IR 5 MG TABLET PO PRN ×3 (07:55→22:14)
[2016-11-01] MEDS ORDERED: METFORMIN HCL PO SCH (08:00)
[2016-11-01] MEDS ORDERED: LINAGLIPTIN PO SCH (08:00)
[2016-11-01] MEDS: SITAGLIPTIN PHOSPHATE 50 MG TABLET PO SCH ×2 (08:53→17:40)
[2016-11-01] MEDS: METFORMIN HCL 500 MG TABLET PO SCH ×2 (08:53→17:40)
[2016-11-01 09:05] LABS: URINE BARBITURATES SCREEN NEGATIVE; URINE METHADONE SCREEN NEGATIVE; URINE OPIATES LOW NEGATIVE; URINE PHENCYCLIDINE SCREEN NEGATIVE
[2016-11-01] MEDS: ALBUTEROL SULFATE 0.083% NEB 2.5 MG/3 ML AMPUL NEB SCH ×3 (09:37→20:50)
[2016-11-01] MEDS ORDERED: ROTIGOTINE TOP SCH (10:00)
[2016-11-01] MEDS ORDERED: (PENDING PHARMACY ID) (Pravastatin Sodium [Pravachol] 40 MG) PO SCH (10:00)
[2016-11-01] MEDS ORDERED: DESOXIMETASONE TOP SCH (10:00)
[2016-11-01] MEDS: METOPROLOL TARTRATE 25 MG TABLET PO SCH (10:20)
[2016-11-01] MEDS: FUROSEMIDE 40 MG TABLET PO SCH (11:25)
[2016-11-01] MEDS: LORATADINE 10 MG TABLET PO SCH (11:25)
[2016-11-01] MEDS: DULOXETINE HCL 30 MG CAPSULE.DR PO SCH ×2 (11:27→22:07)
[2016-11-01] MEDS: ISOSORBIDE MONONITRATE 30 MG TAB.ER.24H PO SCH (11:28)
[2016-11-01] MEDS: LOSARTAN POTASSIUM 50 MG TABLET PO SCH (11:29)
[2016-11-01] MEDS: MAGNESIUM OXIDE 400 MG TABLET PO SCH (11:29)
[2016-11-01] MEDS: SPIRONOLACTONE 25 MG TABLET PO SCH (11:29)
[2016-11-01] MEDS: ASPIRIN 81 MG TABLET, CHEWABLE PO SCH (11:30)
[2016-11-01] MEDS: NYSTATIN TOPICAL POWDER 15 GM TOP SCH ×2 (11:32→17:41)
[2016-11-01] MEDS: PRAMIPEXOLE DI-HCL 0.25 MG TABLET PO SCH (11:33)
[2016-11-01] MEDS ORDERED: LEVOFLOXACIN 750 MG/D5W RTU 150 ML IV SCH (14:00)
[2016-11-01] MEDS ORDERED: ENOXAPARIN SODIUM INJ 100 MG/1 ML DISP.SYRIN SUBCUT ONE (14:30)
--- NOTE | 2016-11-01 15:14 | PDOC H&P ---
History of Present Illness Admission Date/PCP: 10/31/16 14:07 DENICE MORRIS MD History of Present Illness: SINAN MONTGOMERY is a 86 year old female, she was just recently discharged from this hospital on 10/19/2016, she came to the office because of new onset swelling of both lower extremities, outpatient venous Doppler was done from a free standing radiology facility and it showed deep vein thrombosis of both lower extremities. She was admitted directly into the hospital because of this new findings of deep vein thrombosis of both lower extremities, a venous Doppler was done in the hospital and it was said to be negative ,I was concerned and I suspected embolization of the thrombus, but it would be very unusual for the thrombus to embolize from both lower extremities. CTA chest was done but it was negative for pulmonary embolism ,it also showed patchy groundglass opacities in the lung this findings is chronic .She also complained of back pain,more so in the flank of the abdomen,urine culture is also ordered Past Medical History Cardiac Medical History: Reports: Coronary Artery Disease, Myocardial Infarction , Hyperlipidema, Hypertension Pulmonary Medical History: Reports: Asthma, Bronchitis, Chronic Obstructive Pulmonary Disease (COPD), Pneumonia, Sleep Apnea Neurological Medical History: Endocrine Medical History: Reports: Diabetes Mellitus Type 2, Hyperthyroidism, Hypothyroidism Renal/ Medical History: Malignancy Medical History: Reports: Breast Cancer GI Medical History: Reports: Gastroesophageal Reflux Disease Musculoskeltal Medical History: Reports: Arthritis Psychiatric Medical History: Reports: Bipolar Disorder, Depression Hematology: Reports: Anemia Infectious Medical History: Past Surgical History Past Surgical History: Reports: Adenoidectomy, Appendectomy, Cardiac Catheterization, Cholecystectomy, Coronary Artery Bypass Graft - 1996, Hysterectomy, Mastectomy - rt 1994, Orthopedic Surgery - Right Hip replacement, bilateral knee replacements, Tonsillectomy Social History Smoking Status: Former Smoker Frequency of Alcohol Use: None Hx Recreational Drug Use: No Hx Prescription Drug Abuse: No Family History Family History: CAD, CVA, DM, Hyperlipidemia, Hypertension Parental Family History Reviewed: Yes Children Family History Reviewed: Yes Sibling(s) Family History Reviewed.: Yes Medication/Allergy Home Medications: Albuterol Sulfate [Albuterol Sulfate 2.5mg/3 mL] 3 ml IH Q6H 10/31/16 Albuterol Sulfate [Proair HFA Inhalation Aerosol 8.5 gm MDI] 2 puff IH Q4HP PRN 10/31/16 Aspirin [Aspirin 81 mg Chewable Tablet] 81 mg PO DAILY 10/31/16 Desoximetasone [Topicort] 1 applic TOP BID 10/31/16 Duloxetine HCl [Cymbalta] 60 mg PO Q12 10/31/16 Ergocalciferol (Vitamin D2) [Vitamin D2] 50,000 unit PO HURST@1000 10/31/16 Fentanyl [Duragesic 50 Mcg/Hr Transdermal Patch] 1 patch TOP Q3D 10/31/16 Furosemide [Lasix] 40 mg PO DAILY 10/31/16 Isosorbide Mononitrate [Imdur 30 mg Tablet.er] 30 mg PO DAILY 10/31/16 Linagliptin/Metformin HCl [Jentadueto 2.5 mg-1000 mg Tab] 1 tab PO BIDBS Loratadine [Claritin 10 mg Tablet] 10 mg PO DAILY 10/31/16 Losartan Potassium [Cozaar 100 mg Tablet] 100 mg PO DAILY 10/31/16 Magnesium Oxide [Mag-Ox 400 mg Tablet] 400 mg PO DAILY 10/31/16 Metoprolol Tartrate [Lopressor 25 mg Tablet] 25 mg PO DAILY 10/31/16 Nystatin [Mycostatin Topical Powder 15 gm] 1 applic TOP BID 10/31/16 Oxycodone HCl/Acetaminophen [Endocet 10-325 mg Tablet] 1 tab PO Q6HP PRN Oxymorphone HCl [Opana] 5 mg PO Q6HP PRN 10/31/16 Pramipexole Di-HCl [Pramipexole Dihydrochloride] 0.25 mg PO DAILY 10/31/16 Pravastatin Sodium [Pravachol] 40 mg PO DAILY 10/31/16 Rotigotine [Neupro] 1 patch TOP DAILY 10/31/16 Spironolactone [Aldactone 25 mg Tablet] 25 mg PO DAILY 10/31/16 Apixaban [Eliquis 5 mg Tablet] 5 mg PO BID #60 tablet 11/03/16 Levofloxacin [Levaquin 500 mg Tablet] 500 mg PO DAILY #10 tablet 11/03/16 Allergies/Adverse Reactions: codeine [Codeine] Allergy (Severe, Verified 10/31/16 13:48) headache gabapentin Allergy (Verified 10/31/16 13:48) pregabalin [From Lyrica] Allergy (Verified 10/31/16 13:48) Hallucinations Sulfa (Sulfonamide Antibiotics) Allergy (Verified 10/31/16 13:48) itching Review of Systems Constitutional: PRESENT: fatigue Cardiovascular: ABSENT: as per HPI, chest pain, dyspnea on exertion, edema, orthropnea, palpitations, other Respiratory: PRESENT: cough Gastrointestinal: ABSENT: as per HPI, abdominal pain, bloating, coffee ground emesis, constipation, diarrhea, dysphagia, heartburn, hematemesis, hematochezia , melena, nausea, vomiting, other Musculoskeletal: PRESENT: other - Bilateral lower extremity swelling Neurological: ABSENT: as per HPI, abnormal gait, abnormal movements, abnormal speech, confusion, convulsions, dizziness, focal weakness, frequent falls, lack of coordination, memory loss, numbness, paresthesias, restless legs, syncope, tingling, tremor(s), vertigo, weakness, other Physical Exam Vital Signs: Temp Pulse Resp BP Pulse Ox 98.3 F 87 18 133/53 H 95 11/01/16 11:30 11/01/16 14:12 11/01/16 14:12 11/01/16 11:30 11/01/16 14:12 Intake & Output 10/31/16 11/01/16 11/02/16 06:59 06:59 06:59 Intake Total 479 Output Total 750 Balance -271 Weight 95.8 kg Head exam: PRESENT: atraumatic, normocephalic Eye exam: PRESENT: conjunctiva pink, EOMI, PERRLA. ABSENT: scleral icterus Ear exam: PRESENT: normal external ear exam Mouth exam: PRESENT: moist, tongue midline Neck exam: PRESENT: full ROM Respiratory exam: PRESENT: rhonchi, wheezes Cardiovascular exam: PRESENT: RRR, +S1, +S2 GI/Abdominal exam: PRESENT: normal bowel sounds, soft Rectal exam: PRESENT: deferred Extremities exam: PRESENT: other - Bilateral lower extremity swelling Neurological exam: PRESENT: alert, awake, oriented to person, oriented to place , oriented to time, oriented to situation, CN II-XII grossly intact Psychiatric exam: PRESENT: appropriate affect, normal mood Skin exam: PRESENT: dry, intact, warm Results Laboratory Results: 11/01/16 06:19 11/01/16 06:19 10/31/16 10/31/16 10/31/16 17:13 17:13 17:13 WBC RBC Hgb Hct MCV MCH MCHC RDW Plt Count Seg Neutrophils % Lymphocytes % Monocytes % Eosinophils % Basophils % Absolute Neutrophils Absolute Lymphocytes Absolute Monocytes Absolute Eosinophils Absolute Basophils Sodium Potassium Chloride Carbon Dioxide Anion Gap BUN Creatinine Est GFR ( Amer) Est GFR (Non-Af Amer) Glucose Calcium Phosphorus 4.6 H Magnesium 1.9 Total Bilirubin AST ALT Alkaline Phosphatase Ammonia < 8.7 L Total Protein Albumin Triglycerides Cholesterol LDL Cholesterol Direct VLDL Cholesterol HDL Cholesterol Amylase 150 H Lipase 329.0 H TSH 2.86 Free T4 1.19 10/31/16 11/01/16 11/01/16 17:13 06:19 06:19 WBC 11.1 H 9.4 RBC 4.00 4.10 Hgb 11.7 L 12.3 Hct 36.6 36.9 MCV 92 90 MCH 29.3 30.0 MCHC 32.1 33.3 RDW 15.0 H 15.4 H Plt Count 292 265 Seg Neutrophils % 79.1 H Not Reportable Lymphocytes % 12.8 L Not Reportable Monocytes % 5.2 Not Reportable Eosinophils % 2.4 Not Reportable Basophils % 0.5 Not Reportable Absolute Neutrophils 8.7 H Not Reportable Absolute Lymphocytes 1.4 Not Reportable Absolute Monocytes 0.6 Not Reportable Absolute Eosinophils 0.3 Not Reportable Absolute Basophils 0.1 Not Reportable Sodium 135.1 L Potassium 4.5 Chloride 100 Carbon Dioxide 29 Anion Gap 6 BUN 30 H Creatinine 1.24 Est GFR ( Amer) 50 L Est GFR (Non-Af Amer) 41 L Glucose 157 H Calcium 8.8 Phosphorus Magnesium Total Bilirubin 0.7 AST 41 H ALT 60 H Alkaline Phosphatase 121 Ammonia Total Protein 6.0 L Albumin 3.4 L Triglycerides 229 H Cholesterol 174.61 LDL Cholesterol Direct 58 VLDL Cholesterol 45.8 H HDL Cholesterol 82 Amylase Lipase TSH Free T4 10/31/16 10/31/16 10/31/16 17:13 17:13 17:13 Creatine Kinase 33 Troponin I < 0.012 NT-Pro-B Natriuret Pep 554 H 11/01/16 11/01/16 11/01/16 00:06 00:06 06:19 Creatine Kinase 20 L Troponin I < 0.012 0.031 NT-Pro-B Natriuret Pep 11/01/16 06:19 Creatine Kinase 24 L Troponin I NT-Pro-B Natriuret Pep Impressions: Chest/Abdomen CTA 10/31/16 00:00 IMPRESSION: No evidence for pulmonary embolic disease. Patchy ground-glass opacities which could represent pulmonary edema or developing pneumonic infiltrates. Other findings as noted above Venous Doppler Study 10/31/16 00:00 IMPRESSION: NO EVIDENCE DVT OR SVT IN EITHER LEG. Chest X-Ray 10/31/16 16:33 IMPRESSION: NO ACUTE RADIOGRAPHIC FINDING IN THE CHEST. Assessment & Plan - Diagnosis (1) Swelling of both lower extremities Is this a current diagnosis for this admission?: YesPlan: The outpatient venous Doppler that was done suggest DVT bilaterally, venous Doppler that was done in the hospital was negative for DVT. CTA chest negative for PE, d-dimer elevated, CTA abdomen and pelvis to be ordered, she was initially started on IV heparin for DVT protocol this to be discontinued and she will be started on Lovenox
[2016-11-01] MEDS ORDERED: LEVOFLOXACIN 500 MG/D5W RTU 500 MG/100 ML RTUPB IV ONE (17:00)
--- NOTE | 2016-11-01 17:11 | PDOC PROGRESS REPORT ---
Subjective Progress Note for:: 11/01/16 Subjective:: She was admitted yesterday because of presumptive bilateral deep vein thrombosis , she has no new complaints today, the venous Doppler that was done in the hospital did not confirm the deep vein thrombosis that was diagnosed from outpatient facility, CTA chest was done yesterday and was negative the plan is to obtain CT abdomen and pelvis Physical Exam Vital Signs: Temp Pulse Resp BP Pulse Ox 98.3 F 87 18 133/53 H 95 11/01/16 11:30 11/01/16 14:12 11/01/16 14:12 11/01/16 11:30 11/01/16 14:12 Intake & Output 10/31/16 11/01/16 11/02/16 06:59 06:59 06:59 Intake Total 479 Output Total 750 Balance -271 Weight 95.8 kg Head exam: PRESENT: atraumatic, normocephalic Eye exam: PRESENT: conjunctiva pink, EOMI, PERRLA Ear exam: PRESENT: normal external ear exam Mouth exam: PRESENT: moist, tongue midline Neck exam: PRESENT: full ROM Cardiovascular exam: PRESENT: RRR, +S1, +S2 Pulses: PRESENT: normal dorsalis pedis pul, +2 pedal pulses bilateral Vascular exam: PRESENT: normal capillary refill GI/Abdominal exam: PRESENT: normal bowel sounds, soft Rectal exam: PRESENT: deferred Neurological exam: PRESENT: alert, awake, oriented to person, oriented to place , oriented to time, oriented to situation, CN II-XII grossly intact. ABSENT: motor sensory deficit Psychiatric exam: PRESENT: appropriate affect, normal mood. ABSENT: homicidal ideation, suicidal ideation Skin exam: PRESENT: dry, intact, warm. ABSENT: cyanosis, rash Results Laboratory Results: 11/01/16 06:19 11/01/16 06:19 10/31/16 10/31/16 10/31/16 17:13 17:13 17:13 WBC RBC Hgb Hct MCV MCH MCHC RDW Plt Count Seg Neutrophils % Lymphocytes % Monocytes % Eosinophils % Basophils % Absolute Neutrophils Absolute Lymphocytes Absolute Monocytes Absolute Eosinophils Absolute Basophils Sodium Potassium Chloride Carbon Dioxide Anion Gap BUN Creatinine Est GFR ( Amer) Est GFR (Non-Af Amer) Glucose Calcium Phosphorus 4.6 H Magnesium 1.9 Total Bilirubin AST ALT Alkaline Phosphatase Ammonia < 8.7 L Total Protein Albumin Triglycerides Cholesterol LDL Cholesterol Direct VLDL Cholesterol HDL Cholesterol Amylase 150 H Lipase 329.0 H TSH 2.86 Free T4 1.19 10/31/16 11/01/16 11/01/16 17:13 06:19 06:19 WBC 11.1 H 9.4 RBC 4.00 4.10 Hgb 11.7 L 12.3 Hct 36.6 36.9 MCV 92 90 MCH 29.3 30.0 MCHC 32.1 33.3 RDW 15.0 H 15.4 H Plt Count 292 265 Seg Neutrophils % 79.1 H Not Reportable Lymphocytes % 12.8 L Not Reportable Monocytes % 5.2 Not Reportable Eosinophils % 2.4 Not Reportable Basophils % 0.5 Not Reportable Absolute Neutrophils 8.7 H Not Reportable Absolute Lymphocytes 1.4 Not Reportable Absolute Monocytes 0.6 Not Reportable Absolute Eosinophils 0.3 Not Reportable Absolute Basophils 0.1 Not Reportable Sodium 135.1 L Potassium 4.5 Chloride 100 Carbon Dioxide 29 Anion Gap 6 BUN 30 H Creatinine 1.24 Est GFR ( Amer) 50 L Est GFR (Non-Af Amer) 41 L Glucose 157 H Calcium 8.8 Phosphorus Magnesium Total Bilirubin 0.7 AST 41 H ALT 60 H Alkaline Phosphatase 121 Ammonia Total Protein 6.0 L Albumin 3.4 L Triglycerides 229 H Cholesterol 174.61 LDL Cholesterol Direct 58 VLDL Cholesterol 45.8 H HDL Cholesterol 82 Amylase Lipase TSH Free T4 10/31/16 10/31/16 10/31/16 17:13 17:13 17:13 Creatine Kinase 33 Troponin I < 0.012 NT-Pro-B Natriuret Pep 554 H 11/01/16 11/01/16 11/01/16 00:06 00:06 06:19 Creatine Kinase 20 L Troponin I < 0.012 0.031 NT-Pro-B Natriuret Pep 11/01/16 06:19 Creatine Kinase 24 L Troponin I NT-Pro-B Natriuret Pep Impressions: Chest/Abdomen CTA 10/31/16 00:00 IMPRESSION: No evidence for pulmonary embolic disease. Patchy ground-glass opacities which could represent pulmonary edema or developing pneumonic infiltrates. Other findings as noted above Venous Doppler Study 10/31/16 00:00 IMPRESSION: NO EVIDENCE DVT OR SVT IN EITHER LEG. Chest X-Ray 10/31/16 16:33 IMPRESSION: NO ACUTE RADIOGRAPHIC FINDING IN THE CHEST. 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42 - Type 2 diabetes mellitus with diabetic polyneuropathy; Z79.4 - technician terminal and repeater (current) use of insulin Is this a current diagnosis for this admission?: Yes
[2016-11-01] MEDS: ENOXAPARIN SODIUM INJ 100 MG/1 ML DISP.SYRIN SUBCUT SCH (22:07)
[2016-11-02] MEDS: NORMAL SALINE 1000 ML 1,000 ML IV PRN (00:17)
[2016-11-02] MEDS: ALBUTEROL SULFATE 0.083% NEB 2.5 MG/3 ML AMPUL NEB SCH ×4 (02:28→20:25)
[2016-11-02 07:18] LABS: ABSOLUTE EOSINOPHILS # (AUTO) 0.2 10^3/uL (0.0-0.6); ABSOLUTE LYMPHOCYTES (AUTO) 1.3 10^3/uL (0.5-4.7); ABSOLUTE MONOCYTES (AUTO) 0.6 10^3/uL (0.1-1.4); ABSOLUTE NEUT (AUTO) 7.1 10^3/uL (1.7-8.2); BASOPHILS % (AUTO) 0.4 % (0-2); EOSINOPHILS % (AUTO) 2.3 % (0-6); HEMATOCRIT 31.3 % (36.0-47.0); HEMOGLOBIN 10.5 g/dL (12.0-15.5); HGB HCT DIFFERENCE 0.2; MEAN CORPUSCULAR HEMOGLOBIN 29.9 pg (27.0-33.4); MEAN CORPUSCULAR HGB CONC 33.7 g/dL (32.0-36.0); MEAN CORPUSCULAR VOLUME 89 fl (80-97); MONOCYTES % (AUTO) 6.4 % (3-13); RED BLOOD COUNT 3.52 10^6/uL (3.72-5.28); RED CELL DISTRIBUTION WIDTH 15.3 % (11.5-14.0); SEGMENTED NEUTROPHILS % (AUTO) 76.9 % (42-78); WHITE BLOOD COUNT 9.2 10^3/uL (4.0-10.5)
[2016-11-02 07:38] LABS: ANION GAP 11 (5-19); BLOOD UREA NITROGEN 26 mg/dL (7-20); CALCIUM 8.5 mg/dL (8.4-10.2); CARBON DIOXIDE 24 mmol/L (22-30); CHLORIDE 101 mmol/L (98-107); CREATININE RESULT 1.38 mg/dL (0.52-1.25); GLUCOSE 144 mg/dL (75-110); POTASSIUM 4.4 mmol/L (3.6-5.0); SODIUM 135.8 mmol/L (137-145)
[2016-11-02] MEDS: OXYCODONE-ACETAMINOPHEN 5-325 MG TABLET PO PRN ×2 (08:25→16:45)
[2016-11-02] MEDS: METFORMIN HCL 500 MG TABLET PO SCH ×2 (08:26→16:39)
[2016-11-02] MEDS: SITAGLIPTIN PHOSPHATE 50 MG TABLET PO SCH ×2 (08:26→16:39)
[2016-11-02] MEDS: OXYCODONE HCL IR 5 MG TABLET PO PRN ×2 (10:32→16:45)
[2016-11-02] MEDS: DULOXETINE HCL 30 MG CAPSULE.DR PO SCH ×2 (10:34→22:08)
[2016-11-02] MEDS: ASPIRIN 81 MG TABLET, CHEWABLE PO SCH (10:38)
[2016-11-02] MEDS: LOSARTAN POTASSIUM 50 MG TABLET PO SCH (10:39)
[2016-11-02] MEDS: FUROSEMIDE 40 MG TABLET PO SCH (10:39)
[2016-11-02] MEDS: MAGNESIUM OXIDE 400 MG TABLET PO SCH (10:39)
[2016-11-02] MEDS: ISOSORBIDE MONONITRATE 30 MG TAB.ER.24H PO SCH (10:40)
[2016-11-02] MEDS: METOPROLOL TARTRATE 25 MG TABLET PO SCH (10:40)
[2016-11-02] MEDS: SPIRONOLACTONE 25 MG TABLET PO SCH (10:40)
[2016-11-02] MEDS: LORATADINE 10 MG TABLET PO SCH (10:41)
[2016-11-02] MEDS: ENOXAPARIN SODIUM INJ 100 MG/1 ML DISP.SYRIN SUBCUT SCH (10:41)
[2016-11-02] MEDS: NYSTATIN TOPICAL POWDER 15 GM TOP SCH ×2 (10:41→18:06)
[2016-11-02] MEDS: PRAMIPEXOLE DI-HCL 0.25 MG TABLET PO SCH (10:41)
--- NOTE | 2016-11-02 11:54 | Physician Advisory Note ---
Physician Advisor ProgressNote .: Pursuant to the plan for [facility], I have reviewed the medical record for this patient. Physician Advisor Statement: Possible documentation opportunities if attending agrees: 1. "acute hyponatremia, suspect due to " As always, if concerned about any unstable VS or abnormal labs, please comment on them & note what doing about them, & please document each day the potential clinical problems you are concerned could occur if pt not kept in hospital for tx at this time. Thanks for your help with documentation accuracy/specificity improvement! Maris Beavers MD [facility] Physician Advisor, Fellow of Hospital Medicine
[2016-11-02] MEDS ORDERED: LEVOFLOXACIN 250 MG/D5W RTU 250 MG/50 ML RTUPB IV SCH (16:00)
--- NOTE | 2016-11-02 20:22 | PDOC PROGRESS REPORT ---
Subjective Progress Note for:: 11/02/16 Subjective:: I spoke to the radiologist at [facility], she was very sure that the venous Doppler that was done in there facility was positive for DVT she swear by the findings from the venous Doppler she stated that she was beside the drafting technician that did the venous Doppler. CTA of the abdominal aorta and extremity was done yesterday it of the left femoral artery showed 75% stenosis of the left femoral artery Physical Exam Vital Signs: Temp Pulse Resp BP Pulse Ox 98.3 F 75 21 H 117/95 H 95 11/02/16 15:03 11/02/16 15:03 11/02/16 15:03 11/02/16 15:03 11/02/16 15:03 Intake & Output 11/01/16 11/02/16 11/03/16 06:59 06:59 06:59 Intake Total 479 2287 858 Output Total 750 1600 1000 Balance -271 687 -142 Weight 95.8 kg 98.4 kg General appearance: PRESENT: no acute distress Eye exam: PRESENT: PERRLA Cardiovascular exam: PRESENT: +S1, +S2 GI/Abdominal exam: PRESENT: soft Neurological exam: PRESENT: alert Results Laboratory Results: 11/02/16 06:30 11/02/16 06:30 11/02/16 11/02/16 06:30 06:30 WBC 9.2 RBC 3.52 L Hgb 10.5 L Hct 31.3 L MCV 89 MCH 29.9 MCHC 33.7 RDW 15.3 H Plt Count 206 Seg Neutrophils % 76.9 Lymphocytes % 14.0 Monocytes % 6.4 Eosinophils % 2.3 Basophils % 0.4 Absolute Neutrophils 7.1 Absolute Lymphocytes 1.3 Absolute Monocytes 0.6 Absolute Eosinophils 0.2 Absolute Basophils 0.0 Sodium 135.8 L Potassium 4.4 Chloride 101 Carbon Dioxide 24 Anion Gap 11 BUN 26 H Creatinine 1.38 H Est GFR ( Amer) 44 L Est GFR (Non-Af Amer) 36 L Glucose 144 H Calcium 8.5 10/31/16 10/31/16 10/31/16 17:13 17:13 17:13 Creatine Kinase 33 Troponin I < 0.012 NT-Pro-B Natriuret Pep 554 H 11/01/16 11/01/16 11/01/16 00:06 00:06 06:19 Creatine Kinase 20 L Troponin I < 0.012 0.031 NT-Pro-B Natriuret Pep 11/01/16 06:19 Creatine Kinase 24 L Troponin I NT-Pro-B Natriuret Pep Impressions: Chest/Abdomen CTA 10/31/16 00:00 IMPRESSION: No evidence for pulmonary embolic disease. Patchy ground-glass opacities which could represent pulmonary edema or developing pneumonic infiltrates. Other findings as noted above Venous Doppler Study 10/31/16 00:00 IMPRESSION: NO EVIDENCE DVT OR SVT IN EITHER LEG. Chest X-Ray 10/31/16 16:33 IMPRESSION: NO ACUTE RADIOGRAPHIC FINDING IN THE CHEST. Aorta w/Runoff CTA 11/01/16 00:00 IMPRESSION: 75% focal diameter stenosis of the left femoral artery. Moderate to severe focal stenosis at the celiac, SMA, and left renal arterial roots. Assessment & Plan - Diagnosis (1) Swelling of both lower extremities Is this a current diagnosis for this admission?: YesPlan: We have 2 different venous Doppler results, the outpatient venous Doppler results was positive for DVT, venous Doppler that was done in the hospital was negative for DVT. 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 Is this a current diagnosis for this admission?: Yes (3) Chronic obstructive lung disease Qualifiers: COPD type: COPD with acute exacerbation Qualified Code(s): J44.1 - Chronic obstructive pulmonary disease with (acute) exacerbation Is this a current diagnosis for this admission?: Yes (4) Diabetes mellitus Qualifiers: Diabetes mellitus type: type 2 Diabetes mellitus complication status: with neurologic complications Diabetes mellitus complication detail: with polyneuropathy Diabetes mellitus halfway insulin use: without halfway use Qualified Code(s): E11.42 - Type 2 diabetes mellitus with diabetic polyneuropathy; Z79.4 - residential (current) use of insulin Is this a current diagnosis for this admission?: Yes
[2016-11-02] MEDS ORDERED: BISACODYL 5 MG TABEC PO ONE (20:26)
[2016-11-02] MEDS ORDERED: ATORVASTATIN CALCIUM 10 MG TABLET PO SCH (22:00)
[2016-11-03] MEDS: OXYCODONE-ACETAMINOPHEN 5-325 MG TABLET PO PRN ×2 (00:46→08:17)
[2016-11-03] MEDS: OXYCODONE HCL IR 5 MG TABLET PO PRN ×2 (00:46→08:18)
[2016-11-03] MEDS: ALBUTEROL SULFATE 0.083% NEB 2.5 MG/3 ML AMPUL NEB SCH ×3 (02:33→13:08)
[2016-11-03 05:51] LABS: HEMATOCRIT 32.6 % (36.0-47.0); HEMOGLOBIN 10.8 g/dL (12.0-15.5); HGB HCT DIFFERENCE -0.2; MEAN CORPUSCULAR HEMOGLOBIN 29.6 pg (27.0-33.4); MEAN CORPUSCULAR HGB CONC 33.2 g/dL (32.0-36.0); MEAN CORPUSCULAR VOLUME 89 fl (80-97); RED BLOOD COUNT 3.66 10^6/uL (3.72-5.28)
[2016-11-03 06:13] LABS: ANION GAP 10 (5-19); BLOOD UREA NITROGEN 25 mg/dL (7-20); CALCIUM 9.1 mg/dL (8.4-10.2); CARBON DIOXIDE 25 mmol/L (22-30); CHLORIDE 99 mmol/L (98-107); CREATININE RESULT 1.37 mg/dL (0.52-1.25); GLUCOSE 173 mg/dL (75-110); POTASSIUM 4.7 mmol/L (3.6-5.0); SODIUM 133.8 mmol/L (137-145)
[2016-11-03] MEDS: SITAGLIPTIN PHOSPHATE 50 MG TABLET PO SCH ×2 (08:13→16:14)
[2016-11-03] MEDS: METFORMIN HCL 500 MG TABLET PO SCH ×2 (08:13→16:14)
[2016-11-03] MEDS: DULOXETINE HCL 30 MG CAPSULE.DR PO SCH (09:58)
[2016-11-03] MEDS: PRAMIPEXOLE DI-HCL 0.25 MG TABLET PO SCH (09:58)
[2016-11-03] MEDS: NYSTATIN TOPICAL POWDER 15 GM TOP SCH ×2 (09:58→17:22)
[2016-11-03] MEDS: MAGNESIUM OXIDE 400 MG TABLET PO SCH (09:59)
[2016-11-03] MEDS: APIXABAN 5 MG TABLET PO SCH ×2 (09:59→17:21)
[2016-11-03] MEDS: ASPIRIN 81 MG TABLET, CHEWABLE PO SCH (10:00)
[2016-11-03] MEDS: LORATADINE 10 MG TABLET PO SCH (10:00)
[2016-11-03] MEDS: SPIRONOLACTONE 25 MG TABLET PO SCH (10:00)
[2016-11-03] MEDS: METOPROLOL TARTRATE 25 MG TABLET PO SCH (10:03)
[2016-11-03] MEDS: LOSARTAN POTASSIUM 50 MG TABLET PO SCH (10:03)
[2016-11-03] MEDS: FUROSEMIDE 40 MG TABLET PO SCH (10:04)
[2016-11-03] MEDS: ISOSORBIDE MONONITRATE 30 MG TAB.ER.24H PO SCH (10:04)
[2016-11-03] MEDS: NORMAL SALINE 1000 ML 1,000 ML IV PRN (12:11)
[2016-11-03] MEDS ORDERED: LEVOFLOXACIN 250 MG TABLET PO SCH (16:00)
[2016-11-03 17:46] VITALS: BP 90/64
--- NOTE | 2016-11-03 17:54 | PDOC DISCHARGE SUMMARY ---
General - Admit/Disc Date/PCP Admission Date/Primary Care Provider: 11/03/16 14:05 DENICE MORRIS MD Discharge Date: 11/03/16 - Discharge Diagnosis (1) Deep vein thrombosis of both lower extremities Is this a current diagnosis for this admission?: Yes (2) Swelling of both lower extremities Is this a current diagnosis for this admission?: Yes (3) Pseudomonas urinary tract infection Is this a current diagnosis for this admission?: Yes (4) Chronic obstructive lung disease Is this a current diagnosis for this admission?: Yes (5) Coronary artery disease Is this a current diagnosis for this admission?: Yes (6) Diabetes mellitus Is this a current diagnosis for this admission?: Yes (7) Morbid obesity due to excess calories Is this a current diagnosis for this admission?: Yes - Additional Information Discharge Diet: Diabetic Discharge Activity: Activity As Tolerated Home Medications: RX: Albuterol Sulfate [Albuterol Sulfate 2.5mg/3 mL] 3 ml IH Q6H 10/31/16 RX: Albuterol Sulfate [Proair HFA Inhalation Aerosol 8.5 gm MDI] 2 puff IH Q4HP PRN 10/31/16 RX: Aspirin [Aspirin 81 mg Chewable Tablet] 81 mg PO DAILY 10/31/16 RX: Desoximetasone [Topicort] 1 applic TOP BID 10/31/16 RX: Duloxetine HCl [Cymbalta] 60 mg PO Q12 10/31/16 RX: Ergocalciferol (Vitamin D2) [Vitamin D2] 50,000 unit PO HURST@1000 10/31/16 RX: Fentanyl [Duragesic 50 Mcg/Hr Transdermal Patch] 1 patch TOP Q3D 10/31/16 RX: Furosemide [Lasix] 40 mg PO DAILY 10/31/16 RX: Isosorbide Mononitrate [Imdur 30 mg Tablet.er] 30 mg PO DAILY 10/31/16 RX: Linagliptin/Metformin HCl [Jentadueto 2.5 mg-1000 mg Tab] 1 tab PO BIDBS 03/11 RX: Loratadine [Claritin 10 mg Tablet] 10 mg PO DAILY 10/31/16 RX: Losartan Potassium [Cozaar 100 mg Tablet] 100 mg PO DAILY 10/31/16 RX: Magnesium Oxide [Mag-Ox 400 mg Tablet] 400 mg PO DAILY 10/31/16 RX: Metoprolol Tartrate [Lopressor 25 mg Tablet] 25 mg PO DAILY 10/31/16 RX: Nystatin [Mycostatin Topical Powder 15 gm] 1 applic TOP BID 10/31/16 RX: Oxycodone HCl/Acetaminophen [Endocet 10-325 mg Tablet] 1 tab PO Q6HP PRN 03/11 RX: Oxymorphone HCl [Opana] 5 mg PO Q6HP PRN 10/31/16 RX: Pramipexole Di-HCl [Pramipexole Dihydrochloride] 0.25 mg PO DAILY 10/31/16 RX: Pravastatin Sodium [Pravachol] 40 mg PO DAILY 10/31/16 RX: Rotigotine [Neupro] 1 patch TOP DAILY 10/31/16 RX: Spironolactone [Aldactone 25 mg Tablet] 25 mg PO DAILY 10/31/16 Levofloxacin [Levaquin 500 mg Tablet] 500 mg PO DAILY #10 tablet 11/03/16 RX: Apixaban [Eliquis 5 mg Tablet] 5 mg PO BID #60 tablet 11/03/16 History of Present Illness History of Present Illness: SINAN MONTGOMERY is a 86 year old female, she was just recently discharged from this hospital on 10/19/2016, she came to the office because of new onset swelling of both lower extremities, outpatient venous Doppler was done from a free standing radiology facility and it showed deep vein thrombosis of both lower extremities. She was admitted directly into the hospital because of this new findings of deep vein thrombosis of both lower extremities, a venous Doppler was done in the hospital and it was said to be negative ,I was concerned and I suspected embolization of the thrombus, but it would be very unusual for the thrombus to embolize from both lower extremities. CTA chest was done but it was negative for pulmonary embolism ,it also showed patchy groundglass opacities in the lung this findings is chronic .She also complained of back pain,more so in the flank of the abdomen,urine culture is also ordered Hospital Course Hospital Course: Patient 86-year-old female she was admitted directly from the office because of a diagnosis of deep vein thrombosis of both lower extremities. On admission into the hospital a repeat venous Doppler of the lower extremities was done and it was read as negative. The result was in conflict with the results of the venous Doppler that was done outpatient at [facility]. I called [facility], the outpatient facility were the venous Doppler was done and I spoke to the radiologist that read the Doppler and she swear by the result of the Doppler, she said the public address technician called her into the room to look at the Doppler image when it was being done, she said it was highly positive and that the technique was right and she stands by the result of the Doppler findings. Because of these conflicting report I suspected that probably the thrombus embolized to the lung so CTA lung was done and it was negative for pulmonary embolism. D-dimer was elevated, the combination of d-dimer, history of DVT in the past when she was younger, and positive venous Doppler outpatient made me to conclude that it is reasonable to treat with anticoagulation, I also discussed the case with the vascular surgeon Dr. Michaud who suggested that there is no choice but to treat her with anticoagulant, she was then treated with Lovenox at 1 mg/kg body weight every 12 hours. She complains of back pain I suspected kidney infection urine culture was done on it was positive for Pseudomonas she was already empirically started on Levaquin and this was continued she also had CTA of the aorta and lower extremities and there was incidental finding of stenosis of the right femoral artery, celiac artery and superior mesenteric artery. Physical Exam Vital Signs: Temp Pulse Resp BP Pulse Ox 98.6 F 76 18 98/54 L 95 11/03/16 16:02 11/03/16 16:02 11/03/16 16:02 11/03/16 16:02 11/03/16 16:02 General appearance: PRESENT: no acute distress, well-developed Head exam: PRESENT: atraumatic, normocephalic Eye exam: PRESENT: conjunctiva pink, EOMI, PERRLA Ear exam: PRESENT: normal external ear exam Mouth exam: PRESENT: moist, tongue midline Neck exam: PRESENT: full ROM Respiratory exam: PRESENT: clear to auscultation julio Cardiovascular exam: PRESENT: RRR, +S1, +S2 Vascular exam: PRESENT: normal capillary refill GI/Abdominal exam: PRESENT: normal bowel sounds, soft Rectal exam: PRESENT: deferred Neurological exam: PRESENT: alert, awake, oriented to person, oriented to place , oriented to time, oriented to situation, CN II-XII grossly intact. ABSENT: motor sensory deficit Psychiatric exam: PRESENT: appropriate affect, normal mood. ABSENT: homicidal ideation, suicidal ideation Skin exam: PRESENT: dry, intact, warm. ABSENT: cyanosis, rash Results Impressions: Chest/Abdomen CTA 10/31/16 00:00 IMPRESSION: No evidence for pulmonary embolic disease. Patchy ground-glass opacities which could represent pulmonary edema or developing pneumonic infiltrates. Other findings as noted above Venous Doppler Study 10/31/16 00:00 IMPRESSION: NO EVIDENCE DVT OR SVT IN EITHER LEG. Chest X-Ray 10/31/16 16:33 IMPRESSION: NO ACUTE RADIOGRAPHIC FINDING IN THE CHEST. Aorta w/Runoff CTA 11/01/16 00:00 IMPRESSION: 75% focal diameter stenosis of the left femoral artery. Moderate to severe focal stenosis at the celiac, SMA, and left renal arterial roots.
[2016-11-05] MEDS ORDERED: ERGOCALCIFEROL (VITAMIN D2) 50000 UNIT (1.25 MG) CAPSULE PO SCH (10:00)
== END 2016-11-03 18:22 | disposition home or self-care (01) | DRG 300 ==
LOC: ER 13:11 → INTOOBSV 14:07 → 3S 14:07 → OBSVTOIN 11-03 14:05
PROVIDERS: ADMIT Internal Medicine; ATTEND Internal Medicine
PROC: 3E0F73Z Introduction of Anti-inflammatory into Respiratory Tract, Via Natural or Artificial Opening (ICD-10-PCS; principal; 2016-11-01)
DX: I82.4Z3 Acute embolism and thrombosis of unspecified deep veins of distal lower extremity, bilateral (principal); N39.0 Urinary tract infection, site not specified; J44.1 Chronic obstructive pulmonary disease with (acute) exacerbation; I87.323 Chronic venous hypertension (idiopathic) with inflammation of bilateral lower extremity; B96.5 Pseudomonas (aeruginosa) (mallei) (pseudomallei) as the cause of diseases classified elsewhere; I25.10 Atherosclerotic heart disease of native coronary artery without angina pectoris; E11.42 Type 2 diabetes mellitus with diabetic polyneuropathy; E66.01 Morbid (severe) obesity due to excess calories; Z68.33 Body mass index [BMI] 33.0-33.9, adult; E78.5 Hyperlipidemia, unspecified; I10 Essential (primary) hypertension; G47.30 Sleep apnea, unspecified; K21.9 Gastro-esophageal reflux disease without esophagitis; M19.90 Unspecified osteoarthritis, unspecified site; F31.9 Bipolar disorder, unspecified; I25.2 Old myocardial infarction; Z96.641 Presence of right artificial hip joint; Z96.653 Presence of artificial knee joint, bilateral; Z85.3 Personal history of malignant neoplasm of breast; Z90.49 Acquired absence of other specified parts of digestive tract; Z95.1 Presence of aortocoronary bypass graft; Z90.11 Acquired absence of right breast and nipple; Z87.891 Personal history of nicotine dependence; Z79.82 Long term (current) use of aspirin; Z79.4 Long term (current) use of insulin; Z79.899 Other long term (current) drug therapy; Z88.6 Allergy status to analgesic agent; Z88.2 Allergy status to sulfonamides; Z82.49 Family history of ischemic heart disease and other diseases of the circulatory system; Z82.3 Family history of stroke; Z83.3 Family history of diabetes mellitus
CPT/HCPCS: 36415; 71010; 71275; 75635; 80048; 80053; 80061; 80307; 82140; 82150; 82272; 82550; 82962; 83036; 83690; 83735; 83880; 84100; 84439; 84443; 84484; 85025; 85027; 85379; 85610; 85730; 87040; 87070; 87086; 87088; 87186; 87205; 93970; 94640; G0378; G0379; J1644; J1650; J1956; J3490; J7030

== ENCOUNTER 2016-11-17 15:23 | Inpatient (IN) | payer MEDICARE, MEDICAID ==
--- NOTE | 2016-11-17 16:02 | ER Document Report ---
ED Medical Screen (RME) - General Chief Complaint: Leg Pain Stated Complaint: LEG PAIN Time Seen by Provider: 11/17/16 15:45 Mode of Arrival: Wheelchair Information source: Patient TRAVEL OUTSIDE OF THE [place] IN LAST 30 DAYS: No - HPI Patient complains to provider of: Bilateral lower extremities cold and purple Onset/Duration: Gradual Quality of pain: Achy Severity: Moderate Associated Symptoms: Cough (productive) - Bloody sputum, Shortness of breath Similar symptoms previously: Yes Recently seen / treated by doctor: Yes Notes: 11/17/16 16:01 Patient is an 86-year-old female who was sent to the emergency room by primary care provider for bilateral lower extremities which are cold to touch and purple discoloration, she also reports a cough productive of bloody sputum over the past week, she is noted to be hypotensive and hypoxic in the triage area - Related Data Allergies/Adverse Reactions: codeine [Codeine] Allergy (Severe, Verified 11/17/16 15:34) headache gabapentin Allergy (Verified 11/17/16 15:34) pregabalin [From Lyrica] Allergy (Verified 11/17/16 15:34) Hallucinations Sulfa (Sulfonamide Antibiotics) Allergy (Verified 11/17/16 15:34) itching Past Medical History - Past Medical History Cardiac Medical History: Reports: Hx Coronary Artery Disease, Hx Heart Attack, Hx Hypercholesterolemia, Hx Hypertension Pulmonary Medical History: Reports: Hx Asthma, Hx Bronchitis, Hx COPD, Hx Pneumonia, Hx Sleep Apnea Neurological Medical History: Denies: Hx Cerebrovascular Accident Endocrine Medical History: Reports: Hx Diabetes Mellitus Type 2, Hx Hyperthyroidism, Hx Hypothyroidism. Denies: Hx Graves' Disease Renal/ Medical History: Reports: Hx Kidney Stones. Denies: Hx Ovarian Cysts, Hx Peritoneal Dialysis, Hx Pelvic Inflammatory Disease Malignancy Medical History: Reports: Hx Breast Cancer GI Medical History: Reports: Hx Gastroesophageal Reflux Disease. Denies: Hx Irritable Bowel, Hx Liver Failure, Hx Ulcer Musculoskeltal Medical History: Reports Hx Arthritis, Denies Hx Multiple Sclerosis, Denies Hx Muscular Dystrophy, Reports Hx Musculoskeletal Deformity, Reports Hx Musculoskeletal Trauma Psychiatric Medical History: Reports: Hx Bipolar Disorder, Hx Depression Denies: Hx Schizophrenia Traumatic Medical History: Reports: Hx Fractures - right leg(small break) Infectious Medical History: Past Surgical History: Reports: Hx Adenoidectomy, Hx Appendectomy, Hx Cardiac Catheterization, Hx Cardiac Surgery - Double Bypass, Hx Cholecystectomy, Hx Coronary Artery Bypass Graft - 1996, Hx Hysterectomy, Hx Mastectomy - rt 1994, Hx Orthopedic Surgery - Right Hip replacement, bilateral knee replacements, Hx Tonsillectomy. Denies: Hx Bowel Surgery - Immunizations Immunizations up to date: Yes Hx Diphtheria, Pertussis, Tetanus Vaccination: Yes Physical Exam - Vital signs Vitals: Temp Pulse Resp BP Pulse Ox 98.2 F 88 20 95/50 L 91 L 11/17/16 15:34 11/17/16 15:34 11/17/16 15:34 11/17/16 15:34 11/17/16 15:34 Course - Vital Signs Vital signs: Temp Pulse Resp BP Pulse Ox 98.2 F 88 20 95/50 L 91 L 11/17/16 15:34 11/17/16 15:34 11/17/16 15:34 11/17/16 15:34 11/17/16 15:34
--- NOTE | 2016-11-17 16:26 | ER Document Report ---
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 Holland, with increasing bluish legs bilaterally. In addition, she is having some shortness of breath over the past few days and a cough with specks of blood. She denies chest pain, nausea, vomiting, fevers, headache, abdominal pain, leg injury, numbness or leg swelling. TRAVEL OUTSIDE OF THE [place] IN LAST 30 DAYS: No - Related Data Allergies/Adverse Reactions: codeine [Codeine] Allergy (Severe, Verified 11/17/16 15:34) headache gabapentin Allergy (Verified 11/17/16 15:34) pregabalin [From Lyrica] Allergy (Verified 11/17/16 15:34) Hallucinations Sulfa (Sulfonamide Antibiotics) Allergy (Verified 11/17/16 15:34) itching Past Medical History - General Information source: Patient - Social History Smoking Status: Unknown if Ever Smoked Family History: CAD, CVA, DM, Hyperlipidemia, Hypertension Patient has suicidal ideation: No Patient has homicidal ideation: No - Past Medical History Cardiac Medical History: Reports: Hx Coronary Artery Disease, Hx Heart Attack, Hx Hypercholesterolemia, Hx Hypertension Pulmonary Medical History: Reports: Hx Asthma, Hx Bronchitis, Hx COPD, Hx Pneumonia, Hx Sleep Apnea Neurological Medical History: Denies: Hx Cerebrovascular Accident Endocrine Medical History: Reports: Hx Diabetes Mellitus Type 2, Hx Hyperthyroidism, Hx Hypothyroidism. Denies: Hx Graves' Disease Renal/ Medical History: Reports: Hx Kidney Stones. Denies: Hx Ovarian Cysts, Hx Peritoneal Dialysis, Hx Pelvic Inflammatory Disease Malignancy Medical History: Reports: Hx Breast Cancer GI Medical History: Reports: Hx Gastroesophageal Reflux Disease. Denies: Hx Irritable Bowel, Hx Liver Failure, Hx Ulcer Musculoskeltal Medical History: Reports Hx Arthritis, Denies Hx Multiple Sclerosis, Denies Hx Muscular Dystrophy, Reports Hx Musculoskeletal Deformity, Reports Hx Musculoskeletal Trauma Psychiatric Medical History: Reports: Hx Bipolar Disorder, Hx Depression Denies: Hx Schizophrenia Traumatic Medical History: Reports: Hx Fractures - right leg(small break) Infectious Medical History: Past Surgical History: Reports: Hx Adenoidectomy, Hx Appendectomy, Hx Cardiac Catheterization, Hx Cardiac Surgery - Double Bypass, Hx Cholecystectomy, Hx Coronary Artery Bypass Graft - 1996, Hx Hysterectomy, Hx Mastectomy - rt 1994, Hx Orthopedic Surgery - Right Hip replacement, bilateral knee replacements, Hx Tonsillectomy. Denies: Hx Bowel Surgery - Immunizations Immunizations up to date: Yes Hx Diphtheria, Pertussis, Tetanus Vaccination: Yes Hx Pneumococcal Vaccination: 09/07/11 Review of Systems - Review of Systems Notes: REVIEW OF SYSTEMS: CONSTITUTIONAL: -fevers, -chills EENT: -eye pain, -difficulty swallowing, -nasal congestion CARDIOVASCULAR:-chest pain, -syncope. RESPIRATORY: -cough, +SOB GASTROINTESTINAL: -abdominal pain, - nausea, -vomiting, -diarrhea GENITOURINARY: -dysuria, -hematuria MUSCULOSKELETAL: B/L blue legs, +chronic left arm pain, -back pain, -neck pain SKIN: -rash or skin lesions. HEMATOLOGIC: -easy bruising or bleeding. LYMPHATIC: -swollen, enlarged glands. NEUROLOGICAL: -altered mental status or loss of consciousness, -headache, - neurologic symptoms PSYCHIATRIC: -anxiety, -depression. ALL OTHER SYSTEMS REVIEWED AND NEGATIVE. Physical Exam - Vital signs Vitals: Temp Pulse Resp BP Pulse Ox 98.2 F 88 18 95/50 L 92 11/17/16 15:33 11/17/16 15:33 11/17/16 15:33 11/17/16 15:33 11/17/16 15:33 - Notes Notes: PHYSICAL EXAMINATION: GENERAL: Well-appearing, well-nourished and in no acute distress. HEAD: Atraumatic, normocephalic. EYES: Pupils equal round and reactive to light, extraocular movements intact, sclera anicteric, conjunctiva are normal. ENT: nares patent, oropharynx clear without exudates. Moist mucous membranes. NECK: Normal range of motion, supple without lymphadenopathy LUNGS: Breath sounds clear to auscultation bilaterally and equal. No wheezes rales or rhonchi. HEART: Regular rate and rhythm without murmurs ABDOMEN: Soft, nontender, normoactive bowel sounds. No guarding, no rebound. No masses appreciated. EXTREMITIES: 1+ pulses B/L PT and DP pulses, cyanosis up to mid-calf, sensation intact; chronic left arm neuralgias NEUROLOGICAL: Cranial nerves grossly intact. Normal speech. PSYCH: Normal mood, normal affect. SKIN: Fantanyl patch on back, warm, dry, normal turgor, no rashes or lesions noted. Course - Re-evaluation Re-evalutation: High concern for arterial occlusion with B/L leg cyanosis and decreased bilateral pulses. Ultrasound ordered immediately. Dr. Schuster spoke to Dr. Derrek Michaud (Vascular Surgery) about the US result and Dr. Michaud is familiar with the patient. The ultrasound shows arterial waveforms similar to prior studies. Patient has palpable pulses on PE. Pt's creatinine is elevated compared to prior values, which may be from dehydration or CTA 3 weeks ago. 11/17/16 19:[address] Holland and will bring patient in for Obs for further radiation and treatment of her creatinine. Spoke to Dr. Derrek Michaud and with the similar ultrasound findings compared to past, there is evidence of PAD, but no evidence of acute arterial embolism at this time. - Vital Signs Vital signs: Temp Pulse Resp BP Pulse Ox 98.2 F 89 18 124/50 L 97 11/17/16 15:34 11/17/16 15:58 11/17/16 18:01 11/17/16 18:01 11/17/16 17:01 - Laboratory Result Diagrams: 11/17/16 16:35 11/17/16 16:35 Laboratory results interpreted by me: 11/17/16 11/17/16 11/17/16 16:35 16:35 16:35 WBC 11.2 H RDW 15.3 H Seg Neutrophils % 81.9 H Lymphocytes % 10.2 L Absolute Neutrophils 9.2 H Sodium 133.4 L Chloride 92 L BUN 43 H Creatinine 2.14 H Est GFR ( Amer) 27 L Est GFR (Non-Af Amer) 22 L Glucose 144 H Creatine Kinase 29 L NT-Pro-B Natriuret Pep 457 H Urine Blood Ur Leukocyte Esterase 11/17/16 18:23 WBC RDW Seg Neutrophils % Lymphocytes % Absolute Neutrophils Sodium Chloride BUN Creatinine Est GFR ( Amer) Est GFR (Non-Af Amer) Glucose Creatine Kinase NT-Pro-B Natriuret Pep Urine Blood SMALL H Ur Leukocyte Esterase TRACE H - Diagnostic Test Radiology reviewed: Image reviewed, Reports reviewed - EKG Interpretation by Me EKG shows normal: Sinus rhythm, [place], Intervals, QRS Complexes, ST-T Waves Discharge - Discharge Clinical Impression: FRANCESCA (acute kidney injury), PAD (peripheral artery disease) Condition: Stable Disposition: ADMITTED OBSERVATION Admitting Provider: [facility] Admitted: Telemetry
[2016-11-17 16:55] LABS: ABSOLUTE EOSINOPHILS # (AUTO) 0.2 10^3/uL (0.0-0.6); ABSOLUTE LYMPHOCYTES (AUTO) 1.1 10^3/uL (0.5-4.7); ABSOLUTE MONOCYTES (AUTO) 0.6 10^3/uL (0.1-1.4); ABSOLUTE NEUT (AUTO) 9.2 10^3/uL (1.7-8.2); BASOPHILS % (AUTO) 0.3 % (0-2); EOSINOPHILS % (AUTO) 1.9 % (0-6); HEMATOCRIT 38.2 % (36.0-47.0); HEMOGLOBIN 12.5 g/dL (12.0-15.5); HGB HCT DIFFERENCE -0.7; LYMPHOCYTES % (AUTO) 10.2 % (13-45); MEAN CORPUSCULAR HGB CONC 32.7 g/dL (32.0-36.0); MEAN CORPUSCULAR VOLUME 89 fl (80-97); MONOCYTES % (AUTO) 5.7 % (3-13); RED BLOOD COUNT 4.31 10^6/uL (3.72-5.28); RED CELL DISTRIBUTION WIDTH 15.3 % (11.5-14.0); SEGMENTED NEUTROPHILS % (AUTO) 81.9 % (42-78); WHITE BLOOD COUNT 11.2 10^3/uL (4.0-10.5)
[2016-11-17 16:57] LABS: PROTHROMBIN TIME 13.2 SEC (11.4-15.4)
[2016-11-17 16:58] LABS: PARTIAL THROMBOPLASTIN TIME 29.5 SEC (23.5-35.8)
[2016-11-17 17:05] LABS: ANION GAP 13 (5-19); BLOOD UREA NITROGEN 43 mg/dL (7-20); CALCIUM 9.5 mg/dL (8.4-10.2); CARBON DIOXIDE 28 mmol/L (22-30); CHLORIDE 92 mmol/L (98-107); CREATINE KINASE 29 U/L (30-135); CREATININE RESULT 2.14 mg/dL (0.52-1.25); GLUCOSE 144 mg/dL (75-110); POTASSIUM 4.9 mmol/L (3.6-5.0); SODIUM 133.4 mmol/L (137-145)
[2016-11-17] MEDS ORDERED: NORMAL SALINE 1000 ML 1,000 ML IV ONE (17:18)
--- NOTE | 2016-11-17 17:50 | RADIOLOGY REPORT (SQ) ---
EXAM DESCRIPTION: CHEST SINGLE VIEW COMPLETED DATE/TIME: 11/17/2016 5:37 pm REASON FOR STUDY: SOB COMPARISON: 09/15/2016 EXAM PARAMETERS: NUMBER OF VIEWS: One view. TECHNIQUE: Single frontal radiographic view of the chest acquired. RADIATION DOSE: NA LIMITATIONS: None. FINDINGS: LUNGS AND PLEURA: No opacities, masses or pneumothorax. No pleural effusion. MEDIASTINUM AND HILAR STRUCTURES: No masses. Contour normal. HEART AND VASCULAR STRUCTURES: Heart normal in size. Normal vasculature. BONES: Old fracture of the right humeral neck. HARDWARE: Sternotomy wires, surgical clips. OTHER: No other significant finding. IMPRESSION: NO ACUTE RADIOGRAPHIC FINDING IN THE CHEST. TECHNICAL DOCUMENTATION: JOB ID: [id number]
[2016-11-17 18:47] LABS: APPEARANCE,URINE CLEAR; BILIRUBIN,URINE NEGATIVE (NEGATIVE); GLUCOSE, URINE NEGATIVE (NEGATIVE); KETONES,URINE NEGATIVE (NEGATIVE); LEUKOCYTE ESTERASE,URINE TRACE (NEGATIVE); NITRITE,URINE NEGATIVE (NEGATIVE); PROTEIN,URINE NEGATIVE (NEGATIVE); URINE SPECIFIC GRAVITY 1.009; UROBILINOGEN,URINE NEGATIVE mg/dL (<2.0)
--- NOTE | 2016-11-17 20:41 | EKG REPORT ---
SEVERITY:- BORDERLINE ECG - SINUS RHYTHM BORDERLINE RIGHT AXIS DEVIATION BORDERLINE INFERIOR Q WAVES : Confirmed by: Boyd Bob MD 17-Nov-2016 20:39:58
[2016-11-17] MEDS ORDERED: METFORMIN HCL PO SCH (21:15)
[2016-11-17] MEDS ORDERED: LINAGLIPTIN PO SCH (21:15)
[2016-11-17] MEDS ORDERED: NORMAL SALINE 1000 ML 1,000 ML IV PRN (21:16)
[2016-11-17] MEDS ORDERED: INSULIN LISPRO 100 UNIT/ML 3 ML VIAL SUBCUT PRN (21:17)
[2016-11-17] MEDS ORDERED: DEXTROSE 50%-WATER 25 GM/50 ML DISP.SYRIN IV PRN ×2 (21:17)
[2016-11-17] MEDS ORDERED: DEXTROSE 40% GEL 15 GM TUBE PO PRN ×2 (21:17)
[2016-11-17] MEDS ORDERED: GLUCAGON,HUMAN RECOMB 1 MG INJ IM PRN (21:17)
[2016-11-17] MEDS ORDERED: ATORVASTATIN CALCIUM 10 MG TABLET PO ONE (22:00)
[2016-11-17] MEDS: APIXABAN 2.5 MG TABLET PO SCH (23:28)
[2016-11-17] MEDS: DULOXETINE HCL 30 MG CAPSULE.DR PO SCH (23:28)
[2016-11-17] MEDS: PRAMIPEXOLE DI-HCL 0.25 MG TABLET PO SCH (23:29)
[2016-11-18] MEDS: ALBUTEROL SULFATE HFA (90 MCG/PUFF) 8 GM MDI (1 MDI/ER DISP) IH SCH ×2 (02:28→22:12)
[2016-11-18] MEDS: ISOSORBIDE MONONITRATE 30 MG TAB.ER.24H PO SCH (07:43)
[2016-11-18] MEDS: MAGNESIUM OXIDE 400 MG TABLET PO SCH (07:44)
[2016-11-18] MEDS: LORATADINE 10 MG TABLET PO SCH (07:44)
[2016-11-18] MEDS: METFORMIN HCL 500 MG TABLET PO SCH ×2 (07:45→16:53)
[2016-11-18] MEDS: SITAGLIPTIN PHOSPHATE 25 MG TABLET PO SCH ×2 (07:46→16:53)
[2016-11-18] MEDS: LOSARTAN POTASSIUM 50 MG TABLET PO SCH (08:55)
[2016-11-18] MEDS: METOPROLOL TARTRATE 25 MG TABLET PO SCH (08:55)
[2016-11-18] MEDS: DULOXETINE HCL 30 MG CAPSULE.DR PO SCH ×2 (09:31→21:42)
[2016-11-18] MEDS: APIXABAN 2.5 MG TABLET PO SCH ×2 (09:31→21:41)
[2016-11-18 12:06] LABS: ABSOLUTE EOSINOPHILS # (AUTO) 0.3 10^3/uL (0.0-0.6); ABSOLUTE LYMPHOCYTES (AUTO) 0.7 10^3/uL (0.5-4.7); ABSOLUTE MONOCYTES (AUTO) 0.5 10^3/uL (0.1-1.4); ABSOLUTE NEUT (AUTO) 4.9 10^3/uL (1.7-8.2); BASOPHILS % (AUTO) 0.6 % (0-2); EOSINOPHILS % (AUTO) 3.9 % (0-6); HEMATOCRIT 26.8 % (36.0-47.0); HGB HCT DIFFERENCE -0.1; MEAN CORPUSCULAR HEMOGLOBIN 29.4 pg (27.0-33.4); MEAN CORPUSCULAR HGB CONC 33.2 g/dL (32.0-36.0); MEAN CORPUSCULAR VOLUME 89 fl (80-97); MONOCYTES % (AUTO) 7.5 % (3-13); RED BLOOD COUNT 3.02 10^6/uL (3.72-5.28); RED CELL DISTRIBUTION WIDTH 15.1 % (11.5-14.0); WHITE BLOOD COUNT 6.4 10^3/uL (4.0-10.5)
[2016-11-18 12:09] LABS: HEMOGLOBIN 8.9 g/dL (12.0-15.5)
[2016-11-18] MEDS: HYDROCODONE/ACETAMINOPHEN 10-325 MG TABLET PO PRN ×2 (12:25→21:41)
[2016-11-18 13:26] LABS: ALANINE AMINOTRANSFERASE 32 U/L (9-52); ALKALINE PHOSPHATASE 81 U/L (38-126); ANION GAP 11 (5-19); ASPARTATE AMINO TRANSFERASE 21 U/L (14-36); BILIRUBIN,DIRECT 0.3 mg/dL (0.0-0.4); BILIRUBIN,TOTAL 0.6 mg/dL (0.2-1.3); BLOOD UREA NITROGEN 29 mg/dL (7-20); CALCIUM 8.7 mg/dL (8.4-10.2); CARBON DIOXIDE 27 mmol/L (22-30); CHLORIDE 96 mmol/L (98-107); CREATININE RESULT 1.37 mg/dL (0.52-1.25); GLUCOSE 127 mg/dL (75-110); POTASSIUM 4.7 mmol/L (3.6-5.0); TOTAL PROTEIN 5.1 g/dL (6.3-8.2)
--- NOTE | 2016-11-18 14:12 | PDOC H&P ---
History of Present Illness Admission Date/PCP: 11/18/16 12:35 DENICE MORRIS MD History of Present Illness: SINAN MONTGOMERY is a 86 year old female, She came to the office for follow-up, was found to pulseless cold feet of the left foot because of this finding she was referred to the emergency room. She was seen in the emergency room and evaluated arterial Doppler was done and there was no occlusion found on Doppler but she was found to have a new acute kidney injury because of this finding admission was advised. The last time she was admitted to she was diagnosed with deep vein thrombosis on she was empirically started on anticoagulant, Eliquis she stated that she has mild hemoptysis this is probably from the Eliquis ,anticoagulant Past Medical History Cardiac Medical History: Reports: Coronary Artery Disease, Myocardial Infarction , Hyperlipidema, Hypertension Pulmonary Medical History: Reports: Asthma, Bronchitis, Chronic Obstructive Pulmonary Disease (COPD), Pneumonia, Sleep Apnea Neurological Medical History: Endocrine Medical History: Reports: Diabetes Mellitus Type 2, Hyperthyroidism, Hypothyroidism Renal/ Medical History: Malignancy Medical History: Reports: Breast Cancer GI Medical History: Reports: Gastroesophageal Reflux Disease Musculoskeltal Medical History: Reports: Arthritis Psychiatric Medical History: Reports: Bipolar Disorder, Depression Hematology: Reports: Anemia Infectious Medical History: Past Surgical History Past Surgical History: Reports: Adenoidectomy, Appendectomy, Cardiac Catheterization, Cholecystectomy, Coronary Artery Bypass Graft - 1996, Hysterectomy, Mastectomy - rt 1994, Orthopedic Surgery - Right Hip replacement, bilateral knee replacements, Tonsillectomy Social History Smoking Status: Former Smoker Frequency of Alcohol Use: None Hx Recreational Drug Use: No Hx Prescription Drug Abuse: No - Advance Directive Resuscitation Status: Full Code Family History Family History: CAD, CVA, DM, Hyperlipidemia, Hypertension Parental Family History Reviewed: Yes Children Family History Reviewed: Yes Sibling(s) Family History Reviewed.: Yes Medication/Allergy Home Medications: Albuterol Sulfate [Proair HFA] 3 puff IH QHS 11/17/16 Albuterol Sulfate [Ventolin 0.083% Neb 2.5 mg/3 mL Ampul] 3 ml NEB RTBID Aspirin [Aspirin 81 mg Chewable Tablet] 81 mg PO QAM 11/17/16 Duloxetine HCl [Cymbalta] 60 mg PO BID 11/17/16 Ergocalciferol (Vitamin D2) [Drisdol 50,000 unit (1.25MG) Capsule] 50,000 units PO HURST 11/17/16 Furosemide [Lasix] 40 mg PO QAM 11/17/16 Isosorbide Mononitrate [Imdur 30 mg Tablet.er] 30 mg PO M 11/17/16 Levofloxacin [Levaquin 500 mg Tablet] 500 mg PO [id number] 11/17/16 Linagliptin/Metformin HCl [Jentadueto 2.5 mg-1000 mg Tab] 1 tab PO BIDBS Loratadine [Claritin 10 mg Tablet] 10 mg PO QAM 11/17/16 Losartan Potassium [Cozaar 100 mg Tablet] 100 mg PO [facility] 11/17/16 Magnesium Oxide [Mag-Ox 400 mg Tablet] 400 mg PO [facility] 11/17/16 Metoprolol Tartrate [Lopressor 25 mg Tablet] 25 mg PO [facility] 11/17/16 Pramipexole Di-HCl [Mirapex 0.25 mg Tablet] 0.25 mg PO QPM 11/17/16 Pravastatin Sodium [Pravachol] 40 mg PO QPM 11/17/16 Spironolactone [Aldactone 25 mg Tablet] 25 mg PO QA 11/17/16 Allergies/Adverse Reactions: codeine [Codeine] Allergy (Severe, Verified 11/17/16 15:34) headache gabapentin Allergy (Verified 11/17/16 15:34) pregabalin [From Lyrica] Allergy (Verified 11/17/16 15:34) Hallucinations Sulfa (Sulfonamide Antibiotics) Allergy (Verified 11/17/16 15:34) itching Review of Systems Constitutional: ABSENT: chills, fever(s), headache(s), weight gain, weight loss Eyes: ABSENT: visual disturbances Ears: ABSENT: hearing changes Cardiovascular: ABSENT: chest pain, dyspnea on exertion, edema, orthropnea, palpitations Respiratory: PRESENT: cough, hemoptysis, sputum Gastrointestinal: ABSENT: abdominal pain, constipation, diarrhea, hematemesis, hematochezia, nausea, vomiting Genitourinary: ABSENT: dysuria, hematuria Musculoskeletal: ABSENT: joint swelling Integumentary: ABSENT: rash, wounds Neurological: ABSENT: abnormal gait, abnormal speech, confusion, dizziness, focal weakness, syncope Psychiatric: ABSENT: anxiety, depression, homidical ideation, suicidal ideation Endocrine: ABSENT: cold intolerance, heat intolerance, menstrual abnormalities, polydipsia, polyuria Hematologic/Lymphatic: ABSENT: easy bleeding, easy bruising, lymphadenopathy Physical Exam Vital Signs: Temp Pulse Resp BP Pulse Ox 98.0 F 95 18 109/43 L 98 11/18/16 11:37 11/18/16 11:37 11/18/16 11:37 11/18/16 11:37 11/18/16 11:37 General appearance: PRESENT: no acute distress, well-developed, well-nourished Head exam: PRESENT: atraumatic, normocephalic Eye exam: PRESENT: conjunctiva pink, EOMI, PERRLA. ABSENT: scleral icterus Ear exam: PRESENT: normal external ear exam Mouth exam: PRESENT: moist, tongue midline Neck exam: PRESENT: full ROM Respiratory exam: PRESENT: crackles Cardiovascular exam: PRESENT: RRR, +S1 Pulses: PRESENT: +1 pedal pulses bilateral Vascular exam: PRESENT: normal capillary refill GI/Abdominal exam: PRESENT: normal bowel sounds, soft Rectal exam: PRESENT: deferred Neurological exam: PRESENT: alert, awake, oriented to person, oriented to place , oriented to time, oriented to situation, CN II-XII grossly intact. ABSENT: motor sensory deficit Psychiatric exam: PRESENT: appropriate affect, normal mood Skin exam: PRESENT: dry, intact, warm Results Laboratory Results: 11/18/16 12:41 11/18/16 12:41 Sodium 134.0 L Potassium 4.7 Chloride 96 L Carbon Dioxide 27 Anion Gap 11 BUN 29 H Creatinine 1.37 H Est GFR ( Amer) 44 L Est GFR (Non-Af Amer) 37 L Glucose 127 H Calcium 8.7 Total Bilirubin 0.6 AST 21 ALT 32 Alkaline Phosphatase 81 Total Protein 5.1 L Albumin 3.0 L Impressions: Chest X-Ray 11/17/16 16:30 IMPRESSION: NO ACUTE RADIOGRAPHIC FINDING IN THE CHEST. Assessment & Plan - Diagnosis (1) Acute kidney injury Is this a current diagnosis for this admission?: YesPlan: The acute kidney injury is most likely prerenal from diuretic usage (2) Hemoptysis Is this a current diagnosis for this admission?: Yes (3) Chronic obstructive lung disease Qualifiers: COPD type: COPD with acute exacerbation Qualified Code(s): J44.1 - Chronic obstructive pulmonary disease with (acute) exacerbation Is this a current diagnosis for this admission?: Yes
--- NOTE | 2016-11-18 15:23 | RADIOLOGY REPORT (SQ) ---
EXAM DESCRIPTION: CT CHEST WITHOUT COMPLETED DATE/TIME: 11/18/2016 3:12 pm REASON FOR STUDY: hemoptysis D46.20 REFRACTORY ANEMIA WITH EXCESS OF BLASTS, UNSPECIFIED COMPARISON: 10/31/2016. TECHNIQUE: CT scan performed of the chest without intravenous contrast. Images reviewed with lung, soft tissue and bone windows. Reconstructed coronal and sagittal MPR images reviewed. All images st ored on PACS. All CT scanners at this facility use dose modulation, iterative reconstruction, and/or weight based d osing when appropriate to reduce radiation dose to as low as reasonably achievable (ALARA). [facility]: Dose Right [facility]: CareDose [facility]: Dose Right [facility]: Teradose 4D [facility]: Scopial Fashion RADIATION DOSE: 18.74 mGy. LIMITATIONS: No technical limitations. FINDINGS: LUNGS AND PLEURA: Improved aeration in both lungs. Stable 4 mm nodule left upper lobe. A dditional smaller nodules in both lungs which are stable. Ground-glass attenuation has essentially r esolved. No effusions. HILAR AND MEDIASTINAL STRUCTURES: No identified masses or abnormal nodes. No obvious aneurysm. HEART AND VASCULAR STRUCTURES: No aneurysm. No pericardial effusion. UPPER ABDOMEN: No significant findings. Limited exam. THYROID AND OTHER SOFT TISSUES: No masses. No adenopathy. BONES: No acute findings. HARDWARE: CABG. OTHER: No other significant findings. IMPRESSION: Stable pulmonary nodules. Resolved edema. TECHNICAL DOCUMENTATION: JOB ID: [id number] Quality ID # [id number]: Final reports with documentation of one or more dose reduction techniques (e.g., Au tomated exposure control, adjustment of the mA and/or kV according to patient size, use of iterative reconstruction technique) 2010 [employer]- All Rights Reserved
--- NOTE | 2016-11-18 16:26 | XCELERA REPORT ---
[address] [address] Lower Extremity Arterial Evaluation Name: SINAN MONTGOMERY Age: 86 yrs Gender: Female : 1930 Patient Status: Emergency Patient Location: ER Study Date: 11/17/2016 04:44 PM Procedure: A color flow and duplex scan of the lower extremity arteries was performed bilaterally with velocity and waveform anaylsis. Reason For Study: B/L cyanotic LE Ordering Physician: CRYSTAL SMALLWOOD Performed By: Fabiola Montano Measurements and Calculations Right Left METAL PLATER PSV 160.6 99.8 cm/sec Prox PFA PSV 62.9 -111.9 cm/sec Prox SFA PSV 180.7 179.7 cm/sec Mid SFA PSV -104.3 -76.0 cm/sec Dist SFA PSV -60.1 -81.0 cm/sec Prox Pop A PSV 51.1 85.6 cm/sec Dist JACK PSV 44.8 33.8 cm/sec Dist APPAREL EMBROIDERY DIGITIZER PSV 47.8 36.5 cm/sec Israel Pedis PSV 37.1 35.9 cm/sec Right Side Arterial Evaluation Almost normal velocity and biphasic waveforms noted from the Common Femoral artery to the infrageniculate vessels. 0-19% stenosis at the Aorta Iliac inflow. Ankle Brachial index was not done. Left Side Arterial Evaluation Almost normal velocity and biphasic waveforms noted from the Common Femoral artery to the infrageniculate vessels. 0-19% stenosis at the Aorta Iliac inflow. Ankle Brachial index was not done. Interpretation Summary Mild hemodynamically significant lesions in the bilateral lower extremities, on duplex imaging, at rest. : CRYSTAL SMALLWOOD > Derrek Michaud
[2016-11-18] MEDS: ATORVASTATIN CALCIUM 10 MG TABLET PO SCH (17:31)
[2016-11-18] MEDS: PRAMIPEXOLE DI-HCL 0.25 MG TABLET PO SCH (21:41)
[2016-11-18] MEDS ORDERED: ALBUTEROL SULFATE HFA (90 MCG/PUFF) 200 PUFF/8.5 GM MDI IH ONE (22:05)
[2016-11-19] MEDS: HYDROCODONE/ACETAMINOPHEN 10-325 MG TABLET PO PRN (05:14)
[2016-11-19] MEDS: LOSARTAN POTASSIUM 50 MG TABLET PO SCH (07:53)
[2016-11-19] MEDS: ISOSORBIDE MONONITRATE 30 MG TAB.ER.24H PO SCH (07:54)
[2016-11-19] MEDS: MAGNESIUM OXIDE 400 MG TABLET PO SCH (07:54)
[2016-11-19] MEDS: SITAGLIPTIN PHOSPHATE 25 MG TABLET PO SCH ×2 (07:55→17:40)
[2016-11-19] MEDS: LORATADINE 10 MG TABLET PO SCH (07:55)
[2016-11-19] MEDS: METFORMIN HCL 500 MG TABLET PO SCH ×2 (07:55→17:40)
[2016-11-19] MEDS: METOPROLOL TARTRATE 25 MG TABLET PO SCH (07:55)
[2016-11-19] MEDS: APIXABAN 2.5 MG TABLET PO SCH ×2 (09:44→21:24)
[2016-11-19] MEDS: DULOXETINE HCL 30 MG CAPSULE.DR PO SCH ×2 (09:45→21:24)
[2016-11-19] MEDS ORDERED: ERGOCALCIFEROL (VITAMIN D2) 50000 UNIT (1.25 MG) CAPSULE PO SCH (10:00)
[2016-11-19 11:10] LABS: ALANINE AMINOTRANSFERASE 26 U/L (9-52); ALKALINE PHOSPHATASE 75 U/L (38-126); ANION GAP 9 (5-19); ASPARTATE AMINO TRANSFERASE 27 U/L (14-36); BILIRUBIN,DIRECT 0.5 mg/dL (0.0-0.4); BILIRUBIN,TOTAL 0.8 mg/dL (0.2-1.3); BLOOD UREA NITROGEN 19 mg/dL (7-20); CALCIUM 8.6 mg/dL (8.4-10.2); CARBON DIOXIDE 28 mmol/L (22-30); CHLORIDE 99 mmol/L (98-107); CREATININE RESULT 1.17 mg/dL (0.52-1.25); GLUCOSE 125 mg/dL (75-110); POTASSIUM 4.2 mmol/L (3.6-5.0); SODIUM 135.9 mmol/L (137-145); TOTAL PROTEIN 5.4 g/dL (6.3-8.2)
[2016-11-19 11:48] LABS: HEMATOCRIT 32.8 % (36.0-47.0); HEMOGLOBIN 10.7 g/dL (12.0-15.5); HGB HCT DIFFERENCE -0.7; MEAN CORPUSCULAR HEMOGLOBIN 28.8 pg (27.0-33.4); MEAN CORPUSCULAR HGB CONC 32.7 g/dL (32.0-36.0); MEAN CORPUSCULAR VOLUME 88 fl (80-97); RED BLOOD COUNT 3.73 10^6/uL (3.72-5.28); RED CELL DISTRIBUTION WIDTH 15.1 % (11.5-14.0); WHITE BLOOD COUNT 7.1 10^3/uL (4.0-10.5)
[2016-11-19 12:11] LABS: BASOPHILS % (MANUAL) 1 % (0-2); EOSINOPHILS % (MANUAL) 3 % (0-6); LYMPHOCYTES % (MANUAL) 11 % (13-45); TOTAL CELLS COUNTED 100
[2016-11-19 12:12] LABS: RBC MORPHOLOGY COMMENT NORMO-CYTIC/CHROMIC
[2016-11-19] MEDS ORDERED: FENTANYL 50 MCG/HR PATCH.TD72 TD ONE (13:30)
[2016-11-19] MEDS ORDERED: LEVOFLOXACIN 750 MG/D5W RTU 750 MG/150 ML RTUPB IV ONE (14:00)
--- NOTE | 2016-11-19 14:32 | PDOC PROGRESS REPORT ---
Subjective Progress Note for:: 11/19/16 Subjective:: The kidney function is improved suggesting hemodynamic or dehydration the cause of the acute kidney injury Physical Exam Vital Signs: Temp Pulse Resp BP Pulse Ox 97.4 F 75 18 106/65 96 11/19/16 11:55 11/19/16 11:55 11/19/16 11:55 11/19/16 11:55 11/19/16 11:55 Intake & Output 11/18/16 11/19/16 11/20/16 06:59 06:59 06:59 Intake Total 1711 Output Total 1550 Balance 161 General appearance: PRESENT: no acute distress Eye exam: PRESENT: PERRLA Respiratory exam: PRESENT: clear to auscultation julio Cardiovascular exam: PRESENT: +S1, +S2 GI/Abdominal exam: PRESENT: soft Neurological exam: PRESENT: alert Results Laboratory Results: 11/19/16 11:40 11/19/16 10:45 11/19/16 11/19/16 11/19/16 10:45 10:45 11:40 WBC Cancelled 7.1 RBC Cancelled 3.73 Hgb Cancelled 10.7 L Hct Cancelled 32.8 L MCV Cancelled 88 MCH Cancelled 28.8 MCHC Cancelled 32.7 RDW Cancelled 15.1 H Plt Count Cancelled 183 Seg Neutrophils % Cancelled Not Reportable Lymphocytes % Cancelled Not Reportable Monocytes % Cancelled Not Reportable Eosinophils % Cancelled Not Reportable Basophils % Cancelled Not Reportable Absolute Neutrophils Cancelled Not Reportable Absolute Lymphocytes Cancelled Not Reportable Absolute Monocytes Cancelled Not Reportable Absolute Eosinophils Cancelled Not Reportable Absolute Basophils Cancelled Not Reportable Sodium 135.9 L Potassium 4.2 Chloride 99 Carbon Dioxide 28 Anion Gap 9 BUN 19 Creatinine 1.17 Est GFR ( Amer) 53 L Est GFR (Non-Af Amer) 44 L Glucose 125 H Calcium 8.6 Total Bilirubin 0.8 AST 27 ALT 26 Alkaline Phosphatase 75 Total Protein 5.4 L Albumin 3.0 L Impressions: Chest X-Ray 11/17/16 16:30 IMPRESSION: NO ACUTE RADIOGRAPHIC FINDING IN THE CHEST. Chest CT 11/18/16 00:00 IMPRESSION: Stable pulmonary nodules. Resolved edema. Assessment & Plan - Diagnosis (1) Acute kidney injury Is this a current diagnosis for this admission?: Yes (2) Hemoptysis Is this a current diagnosis for this admission?: Yes (3) Chronic obstructive lung disease Qualifiers: COPD type: COPD with acute exacerbation Qualified Code(s): J44.1 - Chronic obstructive pulmonary disease with (acute) exacerbation
[2016-11-19] MEDS: ATORVASTATIN CALCIUM 10 MG TABLET PO SCH (17:42)
[2016-11-19] MEDS: ALBUTEROL SULFATE HFA (90 MCG/PUFF) 8 GM MDI (1 MDI/ER DISP) IH SCH (21:24)
[2016-11-19] MEDS: PRAMIPEXOLE DI-HCL 0.25 MG TABLET PO SCH (21:24)
[2016-11-19] MEDS: OXYCODONE-ACETAMINOPHEN 5-325 MG TABLET PO PRN (23:46)
[2016-11-20 05:00] VITALS: BP 103/60
[2016-11-20] MEDS: LORATADINE 10 MG TABLET PO SCH (09:56)
[2016-11-20] MEDS: METFORMIN HCL 500 MG TABLET PO SCH (09:56)
[2016-11-20] MEDS: OXYCODONE-ACETAMINOPHEN 5-325 MG TABLET PO PRN (09:56)
[2016-11-20] MEDS: APIXABAN 2.5 MG TABLET PO SCH (09:56)
[2016-11-20] MEDS: SITAGLIPTIN PHOSPHATE 25 MG TABLET PO SCH (09:56)
[2016-11-20] MEDS: ISOSORBIDE MONONITRATE 30 MG TAB.ER.24H PO SCH (09:57)
[2016-11-20] MEDS: DULOXETINE HCL 30 MG CAPSULE.DR PO SCH (09:57)
[2016-11-20] MEDS: METOPROLOL TARTRATE 25 MG TABLET PO SCH (09:57)
[2016-11-20] MEDS: LOSARTAN POTASSIUM 50 MG TABLET PO SCH (09:57)
[2016-11-20] MEDS: MAGNESIUM OXIDE 400 MG TABLET PO SCH (09:57)
[2016-11-20] MEDS ORDERED: LEVOFLOXACIN 750 MG/D5W RTU 750 MG/150 ML RTUPB IV SCH (10:00)
[2016-11-20 11:57] LABS: HEMATOCRIT 30.6 % (36.0-47.0); HEMOGLOBIN 10.2 g/dL (12.0-15.5); MEAN CORPUSCULAR HEMOGLOBIN 29.4 pg (27.0-33.4); MEAN CORPUSCULAR HGB CONC 33.5 g/dL (32.0-36.0); MEAN CORPUSCULAR VOLUME 88 fl (80-97); RED BLOOD COUNT 3.48 10^6/uL (3.72-5.28); RED CELL DISTRIBUTION WIDTH 15.2 % (11.5-14.0); WHITE BLOOD COUNT 6.3 10^3/uL (4.0-10.5)
[2016-11-20 12:17] LABS: ALANINE AMINOTRANSFERASE 27 U/L (9-52); ALBUMIN 2.8 g/dL (3.5-5.0); ALKALINE PHOSPHATASE 60 U/L (38-126); ANION GAP 7 (5-19); ASPARTATE AMINO TRANSFERASE 25 U/L (14-36); BILIRUBIN,DIRECT 0.3 mg/dL (0.0-0.4); BILIRUBIN,TOTAL 0.6 mg/dL (0.2-1.3); BLOOD UREA NITROGEN 18 mg/dL (7-20); CALCIUM 8.7 mg/dL (8.4-10.2); CARBON DIOXIDE 26 mmol/L (22-30); CHLORIDE 100 mmol/L (98-107); CREATININE RESULT 1.13 mg/dL (0.52-1.25); GLUCOSE 148 mg/dL (75-110); POTASSIUM 4.3 mmol/L (3.6-5.0); TOTAL PROTEIN 5.1 g/dL (6.3-8.2)
[2016-11-20 12:25] LABS: BAND NEUTROPHILS % (MANUAL) 3 % (3-5); BASOPHILS % (MANUAL) 0 % (0-2); EOSINOPHILS % (MANUAL) 4 % (0-6); LYMPHOCYTES % (MANUAL) 16 % (13-45); TOTAL CELLS COUNTED 100
[2016-11-20 12:26] LABS: ANISOCYTOSIS SLIGHT; OVALOCYTES SLIGHT; POIKILOCYTOSIS SLIGHT; ROULEAUX SLIGHT
--- NOTE | 2016-11-20 12:49 | PDOC DISCHARGE SUMMARY ---
General - Admit/Disc Date/PCP Admission Date/Primary Care Provider: 11/18/16 12:35 DENICE MORRIS MD Discharge Date: 11/20/16 - Discharge Diagnosis (1) Acute kidney injury Is this a current diagnosis for this admission?: Yes (2) Hemoptysis Is this a current diagnosis for this admission?: Yes (3) Chronic obstructive lung disease Is this a current diagnosis for this admission?: Yes - Additional Information Resuscitation Status: Full Code Discharge Diet: Diabetic Discharge Activity: Activity As Tolerated Home Medications: RX: Albuterol Sulfate [Proair HFA] 3 puff IH QHS 11/17/16 RX: Albuterol Sulfate [Ventolin 0.083% Neb 2.5 mg/3 mL Ampul] 3 ml NEB RTBID RX: Aspirin [Aspirin 81 mg Chewable Tablet] 81 mg PO QAM 11/17/16 RX: Duloxetine HCl [Cymbalta] 60 mg PO BID 11/17/16 RX: Ergocalciferol (Vitamin D2) [Drisdol 50,000 unit (1.25MG) Capsule] 50,000 units PO HURST 11/17/16 RX: Isosorbide Mononitrate [Imdur 30 mg Tablet.er] 30 mg PO QA 11/17/16 RX: Linagliptin/Metformin HCl [Jentadueto 2.5 mg-1000 mg Tab] 1 tab PO BIDBS RX: Loratadine [Claritin 10 mg Tablet] 10 mg PO [facility] 11/17/16 RX: Losartan Potassium [Cozaar 100 mg Tablet] 100 mg PO [facility] 11/17/16 RX: Magnesium Oxide [Mag-Ox 400 mg Tablet] 400 mg PO QAM 11/17/16 RX: Metoprolol Tartrate [Lopressor 25 mg Tablet] 25 mg PO QAM 11/17/16 RX: Pramipexole Di-HCl [Mirapex 0.25 mg Tablet] 0.25 mg PO QPM 11/17/16 RX: Pravastatin Sodium [Pravachol] 40 mg PO QPM 11/17/16 RX: Apixaban [Eliquis 2.5 mg Tablet] 2.5 mg PO Q12 #60 tablet 11/20/16 History of Present Illness History of Present Illness: SINAN MONTGOMERY is a 86 year old female, She came to the office for follow-up, was found to pulseless cold feet of the left foot because of this finding she was referred to the emergency room. She was seen in the emergency room and evaluated arterial Doppler was done and there was no occlusion found on Doppler but she was found to have a new acute kidney injury because of this finding admission was advised. The last time she was admitted to she was diagnosed with deep vein thrombosis on she was empirically started on anticoagulant, Eliquis she stated that she has mild hemoptysis this is probably from the Eliquis ,anticoagulant Hospital Course Hospital Course: Patient came to the emergency room because of pulselessness of the left foot and concern for occlusion of the peripheral vessels , she was seen in the emergency room, arterial doppler was done and it was negative,but she was found to have acute kidney injury.. Acute kidney injury is prerenal, due to diuretic , she was treated with IV fluid and there was normalization of the kidney function. She also complained of hemoptysis, this is very mild, CT chest was done and it was normal, there was complete resolution of previous abnormalities. The hemoptysis is most likely from the Eliquis. Physical Exam Vital Signs: Temp Pulse Resp BP Pulse Ox 98.0 F 86 16 103/60 99 11/20/16 04:00 11/20/16 07:00 11/20/16 04:00 11/20/16 04:00 11/20/16 04:00 Intake & Output 11/19/16 11/20/16 11/21/16 06:59 06:59 06:59 Intake Total 1711 1666 Output Total 1550 700 Balance 161 966 General appearance: PRESENT: no acute distress, well-developed, well-nourished Head exam: PRESENT: atraumatic, normocephalic Eye exam: PRESENT: conjunctiva pink, EOMI, PERRLA Ear exam: PRESENT: normal external ear exam Mouth exam: PRESENT: moist, tongue midline Neck exam: PRESENT: full ROM Respiratory exam: PRESENT: clear to auscultation julio Cardiovascular exam: PRESENT: RRR, +S1, +S2 Pulses: PRESENT: normal dorsalis pedis pul Vascular exam: PRESENT: normal capillary refill GI/Abdominal exam: PRESENT: normal bowel sounds, soft Rectal exam: PRESENT: deferred Neurological exam: PRESENT: alert, awake, oriented to person, oriented to place , oriented to time, oriented to situation, CN II-XII grossly intact Psychiatric exam: PRESENT: appropriate affect, normal mood Skin exam: PRESENT: dry, intact, warm Results Laboratory Results: 11/20/16 11:49 11/20/16 11:49 11/20/16 11/20/16 11:49 11:49 WBC 6.3 RBC 3.48 L Hgb 10.2 L Hct 30.6 L MCV 88 MCH 29.4 MCHC 33.5 RDW 15.2 H Plt Count 181 Seg Neutrophils % Not Reportable Lymphocytes % Not Reportable Monocytes % Not Reportable Eosinophils % Not Reportable Basophils % Not Reportable Absolute Neutrophils Not Reportable Absolute Lymphocytes Not Reportable Absolute Monocytes Not Reportable Absolute Eosinophils Not Reportable Absolute Basophils Not Reportable Sodium 133.0 L Potassium 4.3 Chloride 100 Carbon Dioxide 26 Anion Gap 7 BUN 18 Creatinine 1.13 Est GFR ( Amer) 55 L Est GFR (Non-Af Amer) 46 L Glucose 148 H Calcium 8.7 Total Bilirubin 0.6 AST 25 ALT 27 Alkaline Phosphatase 60 Total Protein 5.1 L Albumin 2.8 L Impressions: Chest X-Ray 11/17/16 16:30 IMPRESSION: NO ACUTE RADIOGRAPHIC FINDING IN THE CHEST. Chest CT 11/18/16 00:00 IMPRESSION: Stable pulmonary nodules. Resolved edema.
[2016-11-20] MEDS ORDERED: ALBUTEROL SULFATE HFA (90 MCG/PUFF) 200 PUFF/8.5 GM MDI IH SCH (22:00)
[2016-11-22] MEDS ORDERED: FENTANYL 50 MCG/HR PATCH.TD72 TD SCH (10:00)
== END 2016-11-20 14:00 | disposition home or self-care (01) | DRG 683 ==
LOC: ER 15:23 → 4N 16:20 → UNDOADMOB 19:48 → EH 19:48 → 4N 21:44 → EH 21:44 → OBSVTOIN 11-18 12:35
PROVIDERS: ADMIT Internal Medicine; ATTEND Internal Medicine
DX: N17.9 Acute kidney failure, unspecified (principal); J44.1 Chronic obstructive pulmonary disease with (acute) exacerbation; I82.409 Acute embolism and thrombosis of unspecified deep veins of unspecified lower extremity; R04.2 Hemoptysis; D68.32 Hemorrhagic disorder due to extrinsic circulating anticoagulants; E86.0 Dehydration; T45.515A Adverse effect of anticoagulants, initial encounter; Y92.9 Unspecified place or not applicable; I73.9 Peripheral vascular disease, unspecified; I25.10 Atherosclerotic heart disease of native coronary artery without angina pectoris; E78.5 Hyperlipidemia, unspecified; I10 Essential (primary) hypertension; E11.9 Type 2 diabetes mellitus without complications; K21.9 Gastro-esophageal reflux disease without esophagitis; I25.2 Old myocardial infarction; Z79.84 Long term (current) use of oral hypoglycemic drugs; Z79.51 Long term (current) use of inhaled steroids; Z79.899 Other long term (current) drug therapy; Z86.73 Personal history of transient ischemic attack (TIA), and cerebral infarction without residual deficits
CPT/HCPCS: 36415; 71010; 71250; 80048; 80053; 81001; 82550; 82962; 83605; 83880; 85025; 85610; 85730; 87040; 87086; 87088; 87186; 93005; 93010; 93925; 96360; 99285; G0378; G0379; J1815; J1956; J3490; J7030

== ENCOUNTER 2016-12-13 21:23 | Observation (INO) | payer MEDICARE, MEDICAID ==
[2016-12-13] MEDS ORDERED: VANCOMYCIN HCL INJ 1000 MG VIAL IV ONE (22:13)
[2016-12-13] MEDS ORDERED: HYDROMORPHONE HCL INJ/PF 2 MG/ML AMPULE IV ONE (22:13)
[2016-12-13] MEDS ORDERED: PIPERACILLIN/TAZOBACTAM 3.375 GM VIAL IV ONE (22:13)
[2016-12-13 22:35] LABS: ABSOLUTE EOSINOPHILS # (AUTO) 0.1 10^3/uL (0.0-0.6); ABSOLUTE LYMPHOCYTES (AUTO) 1.9 10^3/uL (0.5-4.7); ABSOLUTE MONOCYTES (AUTO) 0.5 10^3/uL (0.1-1.4); ABSOLUTE NEUT (AUTO) 4.2 10^3/uL (1.7-8.2); BASOPHILS % (AUTO) 0.7 % (0-2); EOSINOPHILS % (AUTO) 0.9 % (0-6); HEMATOCRIT 29.5 % (36.0-47.0); HEMOGLOBIN 9.4 g/dL (12.0-15.5); HGB HCT DIFFERENCE -1.3; LYMPHOCYTES % (AUTO) 28.5 % (13-45); MEAN CORPUSCULAR HEMOGLOBIN 27.8 pg (27.0-33.4); MEAN CORPUSCULAR HGB CONC 31.9 g/dL (32.0-36.0); MEAN CORPUSCULAR VOLUME 87 fl (80-97); MONOCYTES % (AUTO) 7.3 % (3-13); RED BLOOD COUNT 3.39 10^6/uL (3.72-5.28); RED CELL DISTRIBUTION WIDTH 15.8 % (11.5-14.0); SEGMENTED NEUTROPHILS % (AUTO) 62.6 % (42-78); WHITE BLOOD COUNT 6.6 10^3/uL (4.0-10.5)
[2016-12-13 22:38] LABS: ALANINE AMINOTRANSFERASE 29 U/L (9-52); ALBUMIN 3.2 g/dL (3.5-5.0); ALKALINE PHOSPHATASE 92 U/L (38-126); ANION GAP 9 (5-19); ASPARTATE AMINO TRANSFERASE 28 U/L (14-36); BILIRUBIN,DIRECT 0.4 mg/dL (0.0-0.4); BILIRUBIN,TOTAL 0.4 mg/dL (0.2-1.3); BLOOD UREA NITROGEN 13 mg/dL (7-20); CALCIUM 8.5 mg/dL (8.4-10.2); CARBON DIOXIDE 28 mmol/L (22-30); CHLORIDE 103 mmol/L (98-107); CREATININE RESULT 0.83 mg/dL (0.52-1.25); GLUCOSE 162 mg/dL (75-110); POTASSIUM 3.6 mmol/L (3.6-5.0); SODIUM 140.3 mmol/L (137-145); TOTAL PROTEIN 5.6 g/dL (6.3-8.2)
[2016-12-13] MEDS ORDERED: IPRATROPIUM/ALBUTEROL 0.5-2.5 MG/3 ML AMPUL NEB ONE (22:39)
--- NOTE | 2016-12-13 22:39 | ER Document Report ---
ED General - General Chief Complaint: Shortness Of Breath Stated Complaint: SHORTNESS OF BREATH Time Seen by Provider: 12/13/16 22:03 Notes: Patient is an 86-year-old female presents with complaint of pain in her right leg. She had a wound to right leg with wound clinic. They placed an Unna boot on her. She was sent have pain an 8 date and therefore she called a month. It was cut off her leg is very red and warm and therefore they brought the ER. She also has some shortness of breath. She says has chronic shortness of breath at baseline but a little bit worse than usual. No chest pain. No fevers. No vomiting. No diarrhea. She is a diabetic and has insufficiency to both her lower extremities. She has a wound on her left leg as well but no surrounding erythema. TRAVEL OUTSIDE OF THE [place] IN LAST 30 DAYS: No - Related Data Allergies/Adverse Reactions: codeine [Codeine] Allergy (Severe, Verified 11/17/16 15:34) headache gabapentin Allergy (Verified 11/17/16 15:34) pregabalin [From Lyrica] Allergy (Verified 11/17/16 15:34) Hallucinations Sulfa (Sulfonamide Antibiotics) Allergy (Verified 11/17/16 15:34) itching Past Medical History - Social History Smoking Status: Unknown if Ever Smoked Frequency of alcohol use: None Drug Abuse: None Family History: CAD, CVA, DM, Hyperlipidemia, Hypertension - Past Medical History Cardiac Medical History: Reports: Hx Coronary Artery Disease, Hx Heart Attack, Hx Hypercholesterolemia, Hx Hypertension Pulmonary Medical History: Reports: Hx Asthma, Hx Bronchitis, Hx COPD, Hx Pneumonia, Hx Sleep Apnea Neurological Medical History: Denies: Hx Cerebrovascular Accident Endocrine Medical History: Reports: Hx Diabetes Mellitus Type 2, Hx Hyperthyroidism, Hx Hypothyroidism. Denies: Hx Graves' Disease Renal/ Medical History: Reports: Hx Kidney Stones. Denies: Hx Ovarian Cysts, Hx Peritoneal Dialysis, Hx Pelvic Inflammatory Disease Malignancy Medical History: Reports: Hx Breast Cancer GI Medical History: Reports: Hx Gastroesophageal Reflux Disease. Denies: Hx Irritable Bowel, Hx Liver Failure, Hx Ulcer Musculoskeltal Medical History: Reports Hx Arthritis, Denies Hx Multiple Sclerosis, Denies Hx Muscular Dystrophy, Reports Hx Musculoskeletal Deformity, Reports Hx Musculoskeletal Trauma Psychiatric Medical History: Reports: Hx Bipolar Disorder, Hx Depression Denies: Hx Schizophrenia Traumatic Medical History: Reports: Hx Fractures - right leg(small break) Infectious Medical History: Past Surgical History: Reports: Hx Adenoidectomy, Hx Appendectomy, Hx Cardiac Catheterization, Hx Cardiac Surgery - Double Bypass, Hx Cholecystectomy, Hx Coronary Artery Bypass Graft - 1996, Hx Hysterectomy, Hx Mastectomy - rt 1994, Hx Orthopedic Surgery - Right Hip replacement, bilateral knee replacements, Hx Tonsillectomy. Denies: Hx Bowel Surgery - Immunizations Immunizations up to date: Yes Hx Diphtheria, Pertussis, Tetanus Vaccination: Yes Hx Pneumococcal Vaccination: 09/07/11 Review of Systems - Review of Systems Notes: My Normal Review Basic REVIEW OF SYSTEMS: CONSTITUTIONAL : Denies fever, chills, or sweats. Denies recent illness. RESPIRATORY: Some shortness of breath. GASTROINTESTINAL: Denies abdominal pain. Denies nausea, vomiting, or diarrhea. Denies constipation. Last BM: MUSCULOSKELETAL: Denies neck or back pain or joint pain or swelling. SKIN: Cellulitis of right lower extremity HEMATOLOGIC : Denies easy bruising or bleeding. LYMPHATIC: Denies swollen, enlarged glands. NEUROLOGICAL: Denies altered mental status or loss of consciousness. Denies headache. Denies weakness or paralysis or loss of use of either side. Denies problems with gait or speech. Denies sensory or motor loss. ALL OTHER SYSTEMS REVIEWED AND NEGATIVE. Physical Exam - Vital signs Vitals: Pulse Ox 96 12/13/16 21:34 - Notes Notes: General Appearance: Well nourished, alert, cooperative, no acute distress, no obvious discomfort. Vitals: reviewed, See vital signs table. Head: no swelling or tenderness to the head Eyes: PERRL, EOMI, Conjuctiva clear Mouth: No decreasd moisture Neck: Supple, no neck tenderness, No thyromegaly Lungs: Scattered wheezing, No rales, No rhonci, No accessory muscle use, good air exchange bilaterally. Heart: Normal rate, Regular rythm, No murmur, no rub Abdomen: Normal BS, soft, No rigidity, No abdominal tenderness, No guarding, no rebound, no abdominal masses, no organomegaly Extremities: strength 5/5 in all extremities, good pulses in all extremities, no swelling or tenderness in the extremities, no edema. Skin: Circumferential redness to the right leg between the right knee and the right ankle. Area is very warm consistent with cellulitis. Neuro: speech clear, oriented x 3, normal affect, responds appropriately to questions. Course - Vital Signs Vital signs: Temp Pulse Resp BP Pulse Ox 98.7 F 99 18 132/46 H 95 12/13/16 21:53 12/13/16 21:53 12/13/16 23:03 12/13/16 23:03 12/13/16 23:03 - Laboratory Result Diagrams: 12/13/16 21:45 12/13/16 21:45 Laboratory results interpreted by me: 12/13/16 12/13/16 21:45 21:45 RBC 3.39 L Hgb 9.4 L Hct 29.5 L MCHC 31.9 L RDW 15.8 H Glucose 162 H Total Protein 5.6 L Albumin 3.2 L - EKG Interpretation by Me Additional EKG results interpreted by me: 12/13/16 23:08 EKG is reviewed and interpreted by me. EKG shows normal sinus rhythm with a rate of [address] segment elevation or depression. No ischemic T-wave inversions. LA interval slightly prolonged. QRS duration is slightly prolonged. Intervals within normal range. Old EKG for comparison is from November 17, 2016. - Transfer of Care Notes: 12/14/16 00:58 Patient laboratory evaluation is unremarkable; however, since she has been here she has had worsening and spreading redness of her right lower extremity. She her entire leg is red from the knee down to the ankle. She appears to have cellulitis that is probably worsening. I have ordered Zosyn and vancomycin for her. Given her her labs are normal my concern is that she is diabetic, overweight, 86 years old, stays in a wheelchair, and lives by herself at home. I concern is that she become much more sick in the next 24 hours from the by herself and probably would not do well. I did speak with her doctor, , who agrees to admit the patient for further workup and treatment. Dictation of this chart was performed using voice recognition software; therefore, there may be some unintended grammatical errors. Discharge - Discharge Clinical Impression: Cellulitis Qualifiers: Site of cellulitis: extremity Site of cellulitis of extremity: lower extremity Laterality: right Qualified Code(s): L03.115 - Cellulitis of right lower limb Condition: Stable Disposition: ADMITTED OBSERVATION Admitting Provider: Amalia
--- NOTE | 2016-12-13 23:09 | RADIOLOGY REPORT (SQ) ---
EXAM DESCRIPTION: CHEST SINGLE VIEW COMPLETED DATE/TIME: 12/13/2016 10:27 pm REASON FOR STUDY: dyspnea COMPARISON: 11/17/2016 EXAM PARAMETERS: NUMBER OF VIEWS: One view. TECHNIQUE: Single frontal radiographic view of the chest acquired. RADIATION DOSE: NA LIMITATIONS: None. FINDINGS: LUNGS AND PLEURA: Mild increased interstitial thickening. No pneumothorax or pleural effu barbara. MEDIASTINUM AND HILAR STRUCTURES: Stable. HEART AND VASCULAR STRUCTURES: Stable. BONES: No acute findings. HARDWARE: Multiple maxillary and mediastinal surgical clips. CABG. OTHER: No other significant finding. IMPRESSION: Mild increased interstitial thickening. TECHNICAL DOCUMENTATION: JOB ID: [id number]
[2016-12-14] MEDS ORDERED: HYDROMORPHONE HCL INJ/PF 2 MG/ML AMPULE IV ONE (00:58)
[2016-12-14] MEDS ORDERED: CLINDAMYCIN 300 MG/D5W RTU 300 MG/50 ML RTUPB IV ONE (03:30)
[2016-12-14] MEDS ORDERED: OXYCODONE-ACETAMINOPHEN 5-325 MG TABLET PO PRN (03:48)
[2016-12-14] MEDS: SITAGLIPTIN PHOSPHATE 25 MG TABLET PO SCH ×2 (09:50→18:15)
[2016-12-14] MEDS: METFORMIN HCL 500 MG TABLET PO SCH ×2 (09:50→18:15)
[2016-12-14] MEDS: ASPIRIN 81 MG TABLET, CHEWABLE PO SCH (09:50)
[2016-12-14] MEDS: LOSARTAN POTASSIUM 50 MG TABLET PO SCH (09:51)
[2016-12-14] MEDS: ISOSORBIDE MONONITRATE 30 MG TAB.ER.24H PO SCH (09:51)
[2016-12-14] MEDS: DULOXETINE HCL 30 MG CAPSULE.DR PO SCH ×2 (09:51→21:13)
[2016-12-14] MEDS: CLINDAMYCIN 300 MG/D5W RTU 300 MG/50 ML RTUPB IV SCH ×2 (09:51→18:15)
[2016-12-14] MEDS: MAGNESIUM OXIDE 400 MG TABLET PO SCH (09:51)
[2016-12-14] MEDS: LORATADINE 10 MG TABLET PO SCH (09:51)
[2016-12-14] MEDS ORDERED: ERGOCALCIFEROL (VITAMIN D2) 50000 UNIT (1.25 MG) CAPSULE PO SCH (10:00)
[2016-12-14] MEDS: METOPROLOL TARTRATE 25 MG TABLET PO SCH (10:26)
--- NOTE | 2016-12-14 10:47 | EKG REPORT ---
SEVERITY:- ABNORMAL ECG - SINUS RHYTHM FIRST DEGREE AV BLOCK NONSPECIFIC INTRAVENTRICULAR CONDUCTION DELAY : Confirmed by: Dora Gonzalez MD 14-Dec-2016 10:46:24
[2016-12-14] MEDS ORDERED: HYDROMORPHONE HCL INJ/PF 2 MG/ML AMPULE ONE (13:30)
[2016-12-14] MEDS ORDERED: HYDROMORPHONE HCL INJ/PF 2 MG/ML AMPULE IV PRN (13:47)
[2016-12-14] MEDS ORDERED: OXYCODONE-ACETAMINOPHEN 5-325 MG TABLET ONE (18:02)
[2016-12-14] MEDS: PRAMIPEXOLE DI-HCL 0.25 MG TABLET PO SCH (18:15)
[2016-12-14] MEDS: ATORVASTATIN CALCIUM 10 MG TABLET PO SCH (21:12)
[2016-12-14] MEDS: ALBUTEROL SULFATE HFA (90 MCG/PUFF) 200 PUFF/8.5 GM MDI IH SCH (21:13)
[2016-12-14] MEDS ORDERED: ALBUTEROL SULFATE HFA (90 MCG/PUFF) 200 PUFF/8.5 GM MDI IH SCH (22:00)
[2016-12-14] MEDS: OXYCODONE-ACETAMINOPHEN 5-325 MG TABLET PO PRN (23:51)
[2016-12-15] MEDS: CLINDAMYCIN 300 MG/D5W RTU 300 MG/50 ML RTUPB IV SCH ×3 (02:59→17:43)
[2016-12-15] MEDS: OXYCODONE-ACETAMINOPHEN 5-325 MG TABLET PO PRN ×3 (06:17→20:03)
[2016-12-15] MEDS: ASPIRIN 81 MG TABLET, CHEWABLE PO SCH (10:51)
[2016-12-15] MEDS: METFORMIN HCL 500 MG TABLET PO SCH ×2 (10:51→17:43)
[2016-12-15] MEDS: METOPROLOL TARTRATE 25 MG TABLET PO SCH (10:51)
[2016-12-15] MEDS: ISOSORBIDE MONONITRATE 30 MG TAB.ER.24H PO SCH (10:52)
[2016-12-15] MEDS: DULOXETINE HCL 30 MG CAPSULE.DR PO SCH ×2 (10:58→21:05)
[2016-12-15] MEDS: MAGNESIUM OXIDE 400 MG TABLET PO SCH (10:58)
[2016-12-15] MEDS: LOSARTAN POTASSIUM 50 MG TABLET PO SCH (10:58)
[2016-12-15] MEDS: LORATADINE 10 MG TABLET PO SCH (10:58)
[2016-12-15] MEDS: SITAGLIPTIN PHOSPHATE 25 MG TABLET PO SCH ×2 (10:59→17:43)
[2016-12-15] MEDS: IPRATROPIUM/ALBUTEROL 0.5-2.5 MG/3 ML AMPUL NEB PRN ×2 (14:24→20:30)
[2016-12-15] MEDS ORDERED: FENTANYL 50 MCG/HR PATCH.TD72 TD ONE (15:45)
[2016-12-15] MEDS: PRAMIPEXOLE DI-HCL 0.25 MG TABLET PO SCH (17:43)
--- NOTE | 2016-12-15 18:59 | PDOC H&P ---
History of Present Illness Admission Date/PCP: 12/14/16 03:37 History of Present Illness: SINAN MONTGOMERY is a 86 year old female she came to the emergency room for evaluation of shortness of breath from COPD, on evaluation in the emergency room she was found to have severe erythema of the right lower extremity that is obtained from the knee down to the ankle that was also associated with an ulcer on the right leg. The emergency room physician was concerned mostly about the severe celluitis affecting the right leg Past Medical History Cardiac Medical History: Reports: Coronary Artery Disease, Myocardial Infarction , Hyperlipidema, Hypertension Pulmonary Medical History: Reports: Asthma, Bronchitis, Chronic Obstructive Pulmonary Disease (COPD), Pneumonia, Sleep Apnea Neurological Medical History: Endocrine Medical History: Reports: Diabetes Mellitus Type 2, Hyperthyroidism, Hypothyroidism Renal/ Medical History: Malignancy Medical History: Reports: Breast Cancer GI Medical History: Reports: Gastroesophageal Reflux Disease Musculoskeltal Medical History: Reports: Arthritis Psychiatric Medical History: Reports: Bipolar Disorder, Depression Hematology: Reports: Anemia Infectious Medical History: Past Surgical History Past Surgical History: Reports: Adenoidectomy, Appendectomy, Cardiac Catheterization, Cholecystectomy, Coronary Artery Bypass Graft - 1996, Hysterectomy, Mastectomy - rt 1994, Orthopedic Surgery - Right Hip replacement, bilateral knee replacements, Tonsillectomy Social History Smoking Status: Former Smoker Frequency of Alcohol Use: None Hx Recreational Drug Use: No Drugs: None Hx Prescription Drug Abuse: No Family History Family History: CAD, CVA, DM, Hyperlipidemia, Hypertension Parental Family History Reviewed: Yes Children Family History Reviewed: Yes Sibling(s) Family History Reviewed.: Yes Medication/Allergy Home Medications: Aspirin [Aspirin 81 mg Chewable Tablet] 81 mg PO DAILY 12/14/16 Duloxetine HCl [Cymbalta] 60 mg PO BID 12/14/16 Ergocalciferol (Vitamin D2) [Vitamin D2] 50,000 unit PO HURST@1000 12/14/16 Isosorbide Mononitrate [Isosorbide Mononitrate ER] 30 mg PO DAILY 12/14/16 Linagliptin/Metformin HCl [Jentadueto 2.5 mg-1000 mg Tab] 1 each PO BIDBS Loratadine [Claritin 10 mg Tablet] 10 mg PO DAILY 12/14/16 Losartan Potassium [Cozaar 100 mg Tablet] 100 mg PO DAILY 12/14/16 Magnesium Oxide [Mag-Ox 400 mg Tablet] 400 mg PO DAILY 12/14/16 Metoprolol Tartrate [Lopressor 25 mg Tablet] 25 mg PO DAILY 12/14/16 Pramipexole Di-HCl [Pramipexole Dihydrochloride] 0.25 mg PO QPM 12/14/16 Pravastatin Sodium [Pravachol] 40 mg PO DAILY 12/14/16 Allergies/Adverse Reactions: codeine [Codeine] Allergy (Severe, Verified 11/17/16 15:34) headache gabapentin Allergy (Verified 11/17/16 15:34) pregabalin [From Lyrica] Allergy (Verified 11/17/16 15:34) Hallucinations Sulfa (Sulfonamide Antibiotics) Allergy (Verified 11/17/16 15:34) itching Review of Systems Constitutional: PRESENT: chills Eyes: ABSENT: visual disturbances Ears: ABSENT: hearing changes Cardiovascular: ABSENT: chest pain, dyspnea on exertion, edema, orthropnea, palpitations Respiratory: PRESENT: cough, sputum Gastrointestinal: ABSENT: abdominal pain, constipation, diarrhea, hematemesis, hematochezia, nausea, vomiting Genitourinary: ABSENT: dysuria, hematuria Musculoskeletal: PRESENT: back pain Integumentary: PRESENT: wounds Neurological: ABSENT: abnormal gait, abnormal speech, confusion, dizziness, focal weakness, syncope Psychiatric: ABSENT: anxiety, depression, homidical ideation, suicidal ideation Endocrine: ABSENT: cold intolerance, heat intolerance, menstrual abnormalities, polydipsia, polyuria Hematologic/Lymphatic: ABSENT: easy bleeding, easy bruising, lymphadenopathy Physical Exam Vital Signs: Temp Pulse Resp BP Pulse Ox 98.0 F 71 20 115/62 94 12/15/16 15:29 12/15/16 15:29 12/15/16 15:29 12/15/16 15:29 12/15/16 15:29 Intake & Output 12/14/16 12/15/16 12/16/16 06:59 06:59 06:59 Intake Total 0 1970 1030 Output Total 0 800 800 Balance 0 1170 230 Weight 95.3 kg 97.1 kg General appearance: PRESENT: mild distress Head exam: PRESENT: atraumatic, normocephalic Eye exam: PRESENT: PERRLA Mouth exam: PRESENT: moist, tongue midline Neck exam: PRESENT: full ROM Respiratory exam: PRESENT: clear to auscultation julio Cardiovascular exam: PRESENT: +S1, +S2 Vascular exam: PRESENT: normal capillary refill GI/Abdominal exam: PRESENT: normal bowel sounds, soft Rectal exam: PRESENT: deferred Extremities exam: PRESENT: other - There is severe cellulitis of the right leg with an open ulcer on the lateral aspect of the leg Neurological exam: PRESENT: alert, CN II-XII grossly intact Skin exam: PRESENT: dry, intact, warm Results Impressions: Chest X-Ray 12/13/16 22:12 IMPRESSION: Mild increased interstitial thickening. Assessment & Plan - Diagnosis (1) Cellulitis of leg, right Is this a current diagnosis for this admission?: YesPlan: She is admitted for management of cellulitis, intravenous clindamycin to be started (2) Chronic obstructive airway disease Qualifiers: COPD type: chronic bronchitis Chronic bronchitis type: unspecified Qualified Code(s): J42 - Unspecified chronic bronchitis Is this a current diagnosis for this admission?: Yes (3) Swelling of both lower extremities Is this a current diagnosis for this admission?: Yes (4) Chronic pain syndrome Is this a current diagnosis for this admission?: Yes (5) Coronary artery disease Qualifiers: Coronary Disease-Associated Artery/Lesion type: [place] artery [place] vs. transplanted heart: [place] heart Associated angina: without angina Qualified Code(s): I25.10 - Atherosclerotic heart disease of [place] coronary artery without angina pectoris (6) Diabetes mellitus Qualifiers: Diabetes mellitus type: type 2 Diabetes mellitus complication status: with neurologic complications Diabetes mellitus complication detail: with polyneuropathy Diabetes mellitus ad terminal makeup operator insulin use: without jail use Qualified Code(s): E11.42 - Type 2 diabetes mellitus with diabetic polyneuropathy; Z79.4 - nursing home (current) use of insulin Is this a current diagnosis for this admission?: Yes (7) Morbid obesity due to excess calories Is this a current diagnosis for this admission?: Yes
[2016-12-15] MEDS: ATORVASTATIN CALCIUM 10 MG TABLET PO SCH (21:05)
[2016-12-15] MEDS: ALBUTEROL SULFATE HFA (90 MCG/PUFF) 200 PUFF/8.5 GM MDI IH SCH (21:11)
[2016-12-16] MEDS: OXYCODONE-ACETAMINOPHEN 5-325 MG TABLET PO PRN ×2 (02:09→09:38)
[2016-12-16] MEDS: CLINDAMYCIN 300 MG/D5W RTU 300 MG/50 ML RTUPB IV SCH ×2 (02:09→09:37)
[2016-12-16] MEDS: DULOXETINE HCL 30 MG CAPSULE.DR PO SCH (09:37)
[2016-12-16] MEDS: SITAGLIPTIN PHOSPHATE 25 MG TABLET PO SCH (09:37)
[2016-12-16] MEDS: ISOSORBIDE MONONITRATE 30 MG TAB.ER.24H PO SCH (09:37)
[2016-12-16] MEDS: LORATADINE 10 MG TABLET PO SCH (09:38)
[2016-12-16] MEDS: METFORMIN HCL 500 MG TABLET PO SCH (09:38)
[2016-12-16] MEDS: MAGNESIUM OXIDE 400 MG TABLET PO SCH (09:38)
[2016-12-16] MEDS: METOPROLOL TARTRATE 25 MG TABLET PO SCH (09:38)
[2016-12-16] MEDS: ASPIRIN 81 MG TABLET, CHEWABLE PO SCH (09:39)
[2016-12-16] MEDS: LOSARTAN POTASSIUM 50 MG TABLET PO SCH (09:39)
[2016-12-16 12:12] LABS: ABSOLUTE BASOPHILS # (AUTO) 0.1 10^3/uL (0.0-0.2); ABSOLUTE EOSINOPHILS # (AUTO) 0.3 10^3/uL (0.0-0.6); ABSOLUTE LYMPHOCYTES (AUTO) 1.7 10^3/uL (0.5-4.7); ABSOLUTE MONOCYTES (AUTO) 0.5 10^3/uL (0.1-1.4); ABSOLUTE NEUT (AUTO) 4.4 10^3/uL (1.7-8.2); EOSINOPHILS % (AUTO) 3.7 % (0-6); HEMATOCRIT 28.8 % (36.0-47.0); HEMOGLOBIN 9.1 g/dL (12.0-15.5); HGB HCT DIFFERENCE -1.5; MEAN CORPUSCULAR HEMOGLOBIN 27.6 pg (27.0-33.4); MEAN CORPUSCULAR HGB CONC 31.6 g/dL (32.0-36.0); MEAN CORPUSCULAR VOLUME 87 fl (80-97); MONOCYTES % (AUTO) 6.9 % (3-13); RED BLOOD COUNT 3.31 10^6/uL (3.72-5.28); RED CELL DISTRIBUTION WIDTH 15.3 % (11.5-14.0); SEGMENTED NEUTROPHILS % (AUTO) 63.4 % (42-78)
--- NOTE | 2016-12-16 12:24 | PDOC DISCHARGE SUMMARY ---
General - Admit/Disc Date/PCP Admission Date/Primary Care Provider: 12/14/16 03:37 Discharge Date: 12/16/16 - Discharge Diagnosis (1) Cellulitis of leg, right Is this a current diagnosis for this admission?: Yes (2) Chronic obstructive airway disease Is this a current diagnosis for this admission?: Yes (3) Swelling of both lower extremities Is this a current diagnosis for this admission?: Yes (4) Chronic pain syndrome Is this a current diagnosis for this admission?: Yes (5) Coronary artery disease Is this a current diagnosis for this admission?: Yes (6) Diabetes mellitus Is this a current diagnosis for this admission?: Yes (7) Morbid obesity due to excess calories Is this a current diagnosis for this admission?: Yes - Additional Information Home Medications: Aspirin [Aspirin 81 mg Chewable Tablet] 81 mg PO DAILY 12/14/16 Duloxetine HCl [Cymbalta] 60 mg PO BID 12/14/16 Ergocalciferol (Vitamin D2) [Vitamin D2] 50,000 unit PO HURST@1000 12/14/16 Isosorbide Mononitrate [Isosorbide Mononitrate ER] 30 mg PO DAILY 12/14/16 Linagliptin/Metformin HCl [Jentadueto 2.5 mg-1000 mg Tab] 1 each PO BIDBS Loratadine [Claritin 10 mg Tablet] 10 mg PO DAILY 12/14/16 Losartan Potassium [Cozaar 100 mg Tablet] 100 mg PO DAILY 12/14/16 Magnesium Oxide [Mag-Ox 400 mg Tablet] 400 mg PO DAILY 12/14/16 Metoprolol Tartrate [Lopressor 25 mg Tablet] 25 mg PO DAILY 12/14/16 Pramipexole Di-HCl [Pramipexole Dihydrochloride] 0.25 mg PO QPM 12/14/16 Pravastatin Sodium [Pravachol] 40 mg PO DAILY 12/14/16 History of Present Illness History of Present Illness: SINAN MONTGOMERY is a 86 year old female she came to the emergency room for evaluation of shortness of breath from COPD, on evaluation in the emergency room she was found to have severe erythema of the right lower extremity that is obtained from the knee down to the ankle that was also associated with an ulcer on the right leg. The emergency room physician was concerned mostly about the severe celluitis affecting the right leg Hospital Course Hospital Course: She was admitted because of cellulitis of the right leg, she was treated with IV clindamycin. She has a history of chronic venous hypertension with chronic inflammation of both legs she has an ulcer on the right leg and she follows with the wound clinic. There is improvement with treatment with IV antibiotic , she be discharged home today to continue outpatient therapy. She has underlining COPD with a baseline wheezing Physical Exam Vital Signs: Temp Pulse Resp BP Pulse Ox 97.8 F 70 20 144/52 H 98 12/16/16 11:49 12/16/16 11:49 12/16/16 11:49 12/16/16 11:49 12/16/16 11:49 Intake & Output 12/15/16 12/16/16 12/17/16 06:59 06:59 06:59 Intake Total 1970 1380 Output Total 800 1000 Balance 1170 380 Weight 97.1 kg 97.3 kg General appearance: PRESENT: no acute distress Eye exam: PRESENT: PERRLA Respiratory exam: PRESENT: clear to auscultation julio Cardiovascular exam: PRESENT: +S1, +S2 Extremities exam: PRESENT: other - There is bilateral lower extremities swelling with erythema of both legs there is also ulcer on the right leg Neurological exam: PRESENT: alert Results Laboratory Results: 12/16/16 11:56 12/16/16 11:56 WBC 7.0 RBC 3.31 L Hgb 9.1 L Hct 28.8 L MCV 87 MCH 27.6 MCHC 31.6 L RDW 15.3 H Plt Count 291 Seg Neutrophils % 63.4 Lymphocytes % 25.0 Monocytes % 6.9 Eosinophils % 3.7 Basophils % 1.0 Absolute Neutrophils 4.4 Absolute Lymphocytes 1.7 Absolute Monocytes 0.5 Absolute Eosinophils 0.3 Absolute Basophils 0.1 Impressions: Chest X-Ray 12/13/16 22:12 IMPRESSION: Mild increased interstitial thickening.
[2016-12-16 12:31] LABS: ALANINE AMINOTRANSFERASE 24 U/L (9-52); ALBUMIN 3.1 g/dL (3.5-5.0); ALKALINE PHOSPHATASE 76 U/L (38-126); ANION GAP 9 (5-19); ASPARTATE AMINO TRANSFERASE 25 U/L (14-36); BILIRUBIN,DIRECT 0.3 mg/dL (0.0-0.4); BILIRUBIN,TOTAL 0.5 mg/dL (0.2-1.3); BLOOD UREA NITROGEN 14 mg/dL (7-20); CALCIUM 8.6 mg/dL (8.4-10.2); CARBON DIOXIDE 27 mmol/L (22-30); CHLORIDE 103 mmol/L (98-107); CREATININE RESULT 0.87 mg/dL (0.52-1.25); GLUCOSE 92 mg/dL (75-110); POTASSIUM 4.5 mmol/L (3.6-5.0); SODIUM 138.5 mmol/L (137-145); TOTAL PROTEIN 5.5 g/dL (6.3-8.2)
[2016-12-16 12:52] VITALS: BP 102/46
[2016-12-18] MEDS ORDERED: FENTANYL 50 MCG/HR PATCH.TD72 TD SCH (10:00)
[2016-12-21] MEDS ORDERED: ERGOCALCIFEROL (VITAMIN D2) 50000 UNIT (1.25 MG) CAPSULE PO SCH (10:00)
== END 2016-12-16 13:30 | disposition home health service (06) ==
LOC: ER 21:23 → UNDOADMOB 12-14 01:13 → EH 12-14 01:13 → 5 12-14 02:50 → EH 12-14 02:50 → 5 12-14 03:37 → EH 12-14 03:37
PROVIDERS: ADMIT Internal Medicine; ATTEND Internal Medicine
PROC: 3E0F7GC Introduction of Other Therapeutic Substance into Respiratory Tract, Via Natural or Artificial Opening (ICD-10-PCS; principal; 2016-12-15)
DX: L03.115 Cellulitis of right lower limb (principal); J42 Unspecified chronic bronchitis; I87.331 Chronic venous hypertension (idiopathic) with ulcer and inflammation of right lower extremity; E11.622 Type 2 diabetes mellitus with other skin ulcer; L97.819 Non-pressure chronic ulcer of other part of right lower leg with unspecified severity; E11.42 Type 2 diabetes mellitus with diabetic polyneuropathy; G89.4 Chronic pain syndrome; I25.10 Atherosclerotic heart disease of native coronary artery without angina pectoris; E66.01 Morbid (severe) obesity due to excess calories; I25.2 Old myocardial infarction; Z85.3 Personal history of malignant neoplasm of breast; Z95.1 Presence of aortocoronary bypass graft; Z96.641 Presence of right artificial hip joint; Z96.653 Presence of artificial knee joint, bilateral; Z90.11 Acquired absence of right breast and nipple; Z87.891 Personal history of nicotine dependence; Z82.49 Family history of ischemic heart disease and other diseases of the circulatory system; Z79.84 Long term (current) use of oral hypoglycemic drugs; Z79.82 Long term (current) use of aspirin; Z79.899 Other long term (current) drug therapy; Z83.3 Family history of diabetes mellitus; Z87.81 Personal history of (healed) traumatic fracture; Z60.2 Problems related to living alone; Z99.3 Dependence on wheelchair; Z68.35 Body mass index [BMI] 35.0-35.9, adult
CPT/HCPCS: 93005; 99285; 36415 ×2; 87040; 82962 ×3; 85025 ×2; 80053 ×2; 71010; 93010; 94640 ×2; 97602; 11042 ×2; 29581; G0378 ×3; A9270 ×33; J3490 ×6; J1170 ×3; J3370; J2543; J7620

== ENCOUNTER → 2017-01-22 | Outpatient (CLI) | payer MEDICARE, MEDICAID ==
--- NOTE | 2017-01-24 08:26 | XCELERA REPORT ---
[address] [address] Lower Extremity Venous Evaluation Name: SINAN MONTGOMERY Age: 86 yrs Gender: Female : 1930 Patient Status: Outpatient Patient Location: Study Date: 01/22/2017 10:15 AM Procedure: A bilateral duplex scan of the lower extremity veins was performed. The evaluation included responses to compression and other maneuvers with patient in the supine and standing positions to assess venous insufficiency. Reason For Study: EDEMA PAIN Ordering Physician: NOEMY VELASCO Performed By: Clarissa Meza Right Sided Venous Evaluation Deep venous system evaluation shows patent veins with significant reflux identified. 4 seconds reflux in the Femoral vein. 3 seconds in the Popliteal vein. Sapheno Femoral junction: no reflux. Greater Saphenous vein, Proximal thigh: reflux: no reflux. Greater Saphenous vein, Distal thigh: reflux: no reflux. Greater Saphenous vein, Proximal below knee: reflux: no reflux. No significant Perforators identified. Left Sided Venous Evaluation Deep venous system evaluation shows patent veins with significant reflux identified. 1.8 seconds in the Popliteal vein. Sapheno Femoral junction: no reflux. Greater Saphenous vein, Proximal thigh: reflux: no reflux. Greater Saphenous vein, Distal thigh: reflux: no reflux. Greater Saphenous vein, Proximal below knee: reflux: no reflux. No significant Perforators identified. Interpretation Summary No duplex evidence of DVT or obstruction in the bilateral lower extremities. Deep vein reflux, as noted, no superficial reflux identified. : NOEMY VELASCO > Derrek Michaud
== END ==
LOC: SP 09:51
PROVIDERS: ATTEND Surgery Vascular Surgery
DX: R60.0 Localized edema (principal); M79.662 Pain in left lower leg; M79.661 Pain in right lower leg
CPT/HCPCS: 93970

== ENCOUNTER 2017-01-27 08:13 | Emergency (ER) | payer MEDICARE, MEDICAID ==
[2017-01-27] MEDS ORDERED: OXYCODONE-ACETAMINOPHEN 5-325 MG TABLET PO ONE (08:37)
--- NOTE | 2017-01-27 08:46 | ER Document Report ---
ED General - General Chief Complaint: Back Pain Stated Complaint: BACK PAIN Time Seen by Provider: 01/27/17 08:17 Mode of Arrival: Medic Information source: Patient, Emergency Med Personnel Notes: Patient presents to the emergency department via EMS with complaints, back pain , and respiratory to stress. EMS reports patient was stuck in her recliner all night because she lost the remote to the recliner. When EMS arrived she was in an awkward position but once they adjusted her position the c/o respiratory distress resolved. Pt had been incontinent of urine. Has history of chronic back pain but complains that her back is hurting more. Daughter Vitaly contacted. She reports mother has history of chronic pain. She is now currently taking oxycodone 10 mg every 6 hours and has a fentanyl patch on. She reports mother has been recently complaining of urinary frequency.. She also reports mother has a history of some concern of her renal function. Denies fever vomiting diarrhea. Patient has dressing to LLL, she reports poor circulation. Patient of wound care. Patient also reports a few weeks ago she had injections to her left shoulder and right hip but reports no relief of pain since then. Patient answers all questions appropriately. Requesting blueberry cobbler. TRAVEL OUTSIDE OF THE [place] IN LAST 30 DAYS: No - HPI Onset: Other - last night Onset/Duration: Persistent - chronic pain Quality of pain: Achy Associated symptoms: Body/muscle aches Exacerbated by: Movement, Other - touch Relieved by: Denies Similar symptoms previously: Yes Recently seen / treated by doctor: Yes - Related Data Allergies/Adverse Reactions: codeine [Codeine] Allergy (Severe, Verified 11/17/16 15:34) headache bacitracin [From Neosporin ([id number])] Allergy (Verified 01/27/17 08:46) gabapentin Allergy (Verified 11/17/16 15:34) neomycin [From Neosporin ([id number])] Allergy (Verified 01/27/17 08:46) polymyxin B [From Neosporin ([id number])] Allergy (Verified 01/27/17 08:46) pregabalin [From Lyrica] Allergy (Verified 11/17/16 15:34) Hallucinations Sulfa (Sulfonamide Antibiotics) Allergy (Verified 11/17/16 15:34) itching Home Medications: Current Home Medications Chromium Amino Acid Chelate [Chromium] 400 mcg PO DAILY 01/27/17 [History] Fentanyl [Fentanyl] 1 applic TD Q3DAYS 01/27/17 [History] Lutein [Natural Lutein] 20 mg PO DAILY 01/27/17 [History] Oxycodone HCl/Acetaminophen [Oxycodone-Acetaminophen 10-325] 1 tab PO Q6H [History] Past Medical History - General Information source: Patient - Social History Smoking Status: Unknown if Ever Smoked Cigarette use (# per day): No Frequency of alcohol use: None Drug Abuse: None Lives with: Alone Family History: CAD, CVA, DM, Hyperlipidemia, Hypertension - Past Medical History Cardiac Medical History: Reports: Hx Coronary Artery Disease, Hx Heart Attack, Hx Hypercholesterolemia, Hx Hypertension Pulmonary Medical History: Reports: Hx Asthma, Hx Bronchitis, Hx COPD, Hx Pneumonia, Hx Sleep Apnea Neurological Medical History: Denies: Hx Cerebrovascular Accident Endocrine Medical History: Reports: Hx Diabetes Mellitus Type 2, Hx Hyperthyroidism, Hx Hypothyroidism. Denies: Hx Graves' Disease Renal/ Medical History: Reports: Hx Kidney Stones. Denies: Hx Ovarian Cysts, Hx Peritoneal Dialysis, Hx Pelvic Inflammatory Disease Malignancy Medical History: Reports: Hx Breast Cancer GI Medical History: Reports: Hx Gastroesophageal Reflux Disease. Denies: Hx Irritable Bowel, Hx Liver Failure, Hx Ulcer Musculoskeltal Medical History: Reports Hx Arthritis, Denies Hx Multiple Sclerosis, Denies Hx Muscular Dystrophy, Reports Hx Musculoskeletal Deformity, Reports Hx Musculoskeletal Trauma Psychiatric Medical History: Reports: Hx Bipolar Disorder, Hx Depression Denies: Hx Schizophrenia Traumatic Medical History: Reports: Hx Fractures - right leg(small break) Infectious Medical History: Past Surgical History: Reports: Hx Adenoidectomy, Hx Appendectomy, Hx Cardiac Catheterization, Hx Cardiac Surgery - Double Bypass, Hx Cholecystectomy, Hx Coronary Artery Bypass Graft - 1996, Hx Hysterectomy, Hx Mastectomy - rt 1994, Hx Orthopedic Surgery - Right Hip replacement, bilateral knee replacements, Hx Tonsillectomy. Denies: Hx Bowel Surgery - Immunizations Immunizations up to date: Yes Hx Diphtheria, Pertussis, Tetanus Vaccination: Yes Hx Pneumococcal Vaccination: 09/07/11 Review of Systems - Review of Systems Notes: Review HPI for review of systems., All other systems negative Physical Exam - Vital signs Vitals: Temp Pulse Resp BP Pulse Ox 97.6 F 82 18 116/40 L 99 01/27/17 08:33 01/27/17 08:33 01/27/17 08:33 01/27/17 08:33 01/27/17 08:33 - Notes Notes: PHYSICAL EXAMINATION: GENERAL: nontoxic looking HEAD: Atraumatic, normocephalic. EYES: Pupils equal round and reactive to light, extraocular movements intact, sclera anicteric, conjunctiva are normal. ENT: nares patent, oropharynx clear without exudates. Moist mucous membranes. NECK: Normal range of motion, supple without lymphadenopathy LUNGS: CTAB and equal. No wheezes rales or rhonchi. HEART: Regular rate and rhythm without murmurs ABDOMEN: Soft, no tenderness. No guarding, no rebound BACK: C/O Generalized pain with minimal palpation, erythema, no warmth, no swelling EXTREMITIES: decreased range of motion to arms due to pain, stands with assistance NEUROLOGICAL: Cranial nerves grossly intact. Normal sensory/motor exams. PSYCH: Normal mood, normal affect. SKIN: Warm, Dry, erythema to bilateral gluteal folds, no decubitus Course - Re-evaluation Re-evalutation: 01/27/17 08:34 Vitaly, pts daughter contacted to inform her mother is here. We discussed mother' s past medical history medications, she reports mom has increased urinary frequency. Will check renal function and possible UTI 01/27/17 10:36 Labs unremarkable contacted daughter Vitaly, all results reviewed. Daughter will be in to pick patient up. Patient asking for food specifically blueberry cobbler. Not available at this time but will try to find her something else to eat. - Vital Signs Vital signs: Temp Pulse Resp BP Pulse Ox 97.6 F 68 18 137/41 H 93 01/27/17 08:33 01/27/17 11:16 01/27/17 11:16 01/27/17 11:16 01/27/17 11:16 - Laboratory Result Diagrams: 01/27/17 09:00 01/27/17 09:00 Laboratory results interpreted by me: 01/27/17 01/27/17 01/27/17 09:00 09:00 09:19 Hgb 10.5 L Hct 32.3 L RDW 15.7 H Est GFR (Non-Af Amer) 57 L Total Protein 5.7 L Albumin 3.4 L Ur Leukocyte Esterase TRACE H - Diagnostic Test Radiology reviewed: Image reviewed, Reports reviewed - NEG FOR PNEUMONIA Discharge - Discharge Clinical Impression: Weakness Back pain Qualifiers: Back pain location: back pain in unspecified location Chronicity: unspecified Back pain laterality: unspecified Qualified Code(s): M54.9 - Dorsalgia, unspecified Condition: Stable Disposition: HOME, SELF-CARE Additional Instructions: *You have been evaluated for back pain *Take your pain medication as prescribed *Follow up with your primary care provider within 5 days *Return to ED for worsening condition, changes, needs Referrals: DENICE MORRIS MD [Primary Care Provider] - Follow up in 3-5 days
[2017-01-27 09:20] LABS: ABSOLUTE EOSINOPHILS # (AUTO) 0.3 10^3/uL (0.0-0.6); ABSOLUTE LYMPHOCYTES (AUTO) 1.2 10^3/uL (0.5-4.7); ABSOLUTE MONOCYTES (AUTO) 0.4 10^3/uL (0.1-1.4); ABSOLUTE NEUT (AUTO) 5.4 10^3/uL (1.7-8.2); BASOPHILS % (AUTO) 0.4 % (0-2); EOSINOPHILS % (AUTO) 3.6 % (0-6); HEMATOCRIT 32.3 % (36.0-47.0); HEMOGLOBIN 10.5 g/dL (12.0-15.5); HGB HCT DIFFERENCE -0.8; LYMPHOCYTES % (AUTO) 16.1 % (13-45); MEAN CORPUSCULAR HEMOGLOBIN 27.5 pg (27.0-33.4); MEAN CORPUSCULAR HGB CONC 32.5 g/dL (32.0-36.0); MEAN CORPUSCULAR VOLUME 85 fl (80-97); MONOCYTES % (AUTO) 5.2 % (3-13); RED BLOOD COUNT 3.82 10^6/uL (3.72-5.28); RED CELL DISTRIBUTION WIDTH 15.7 % (11.5-14.0); SEGMENTED NEUTROPHILS % (AUTO) 74.7 % (42-78); WHITE BLOOD COUNT 7.2 10^3/uL (4.0-10.5)
[2017-01-27 09:31] LABS: ALANINE AMINOTRANSFERASE 27 U/L (9-52); ALBUMIN 3.4 g/dL (3.5-5.0); ALKALINE PHOSPHATASE 93 U/L (38-126); ANION GAP 8 (5-19); ASPARTATE AMINO TRANSFERASE 27 U/L (14-36); BILIRUBIN,DIRECT 0.3 mg/dL (0.0-0.4); BILIRUBIN,TOTAL 0.5 mg/dL (0.2-1.3); BLOOD UREA NITROGEN 17 mg/dL (7-20); CARBON DIOXIDE 27 mmol/L (22-30); CHLORIDE 104 mmol/L (98-107); CREATININE RESULT 0.94 mg/dL (0.52-1.25); GLUCOSE 86 mg/dL (75-110); POTASSIUM 4.2 mmol/L (3.6-5.0); SODIUM 139.4 mmol/L (137-145); TOTAL PROTEIN 5.7 g/dL (6.3-8.2)
[2017-01-27 09:47] LABS: APPEARANCE,URINE CLEAR; BILIRUBIN,URINE NEGATIVE (NEGATIVE); GLUCOSE, URINE NEGATIVE (NEGATIVE); KETONES,URINE NEGATIVE (NEGATIVE); LEUKOCYTE ESTERASE,URINE TRACE (NEGATIVE); NITRITE,URINE NEGATIVE (NEGATIVE); PROTEIN,URINE NEGATIVE (NEGATIVE); UROBILINOGEN,URINE NEGATIVE mg/dL (<2.0)
--- NOTE | 2017-01-27 10:21 | RADIOLOGY REPORT (SQ) ---
EXAM DESCRIPTION: CHEST SINGLE VIEW COMPLETED DATE/TIME: 01/27/2017 10:02 am REASON FOR STUDY: hx recent pneumonia COMPARISON: CT chest 11/18/2016 Chest films 10/31/2016, 11/18/2016, 12/13/2016 EXAM PARAMETERS: NUMBER OF VIEWS: One view. TECHNIQUE: Single frontal radiographic view of the chest acquired. RADIATION DOSE: NA LIMITATIONS: None. FINDINGS: LUNGS AND PLEURA: No opacities, masses or pneumothorax. No pleural effusion. MEDIASTINUM AND HILAR STRUCTURES: No masses. Contour normal. HEART AND VASCULAR STRUCTURES: Heart normal in size. Normal vasculature. Post sternotomy and CABG. BONES: No acute findings. HARDWARE: Clips right axilla. Post right mastectomy. OTHER: No other significant finding. IMPRESSION: NO ACUTE RADIOGRAPHIC FINDING IN THE CHEST. TECHNICAL DOCUMENTATION: JOB ID: [id number]
[2017-01-27 11:17] VITALS: BP 137/41
== END 2017-01-27 11:16 | disposition home or self-care (01) ==
LOC: ER 08:13
DX: R53.1 Weakness (principal); M54.9 Dorsalgia, unspecified; G89.29 Other chronic pain; Z79.899 Other long term (current) drug therapy
CPT/HCPCS: 99284; 51701; 36415; 87086; 85025; 80053; 81001; 71010; A9270

== ENCOUNTER 2017-02-13 00:42 | Emergency (ER) | payer MEDICARE, MEDICAID ==
[2017-02-13] MEDS ORDERED: FENTANYL CITRATE INJ/PF 100 MCG/2 ML AMPUL IV ONE (02:10)
--- NOTE | 2017-02-13 02:11 | ER Document Report ---
ED General - General Chief Complaint: Abdominal Pain Stated Complaint: abdominal pain Time Seen by Provider: 02/13/17 01:58 Notes: Patient is an 86-year-old female who comes emergency department chief complaint of mid to lower abdominal pain that radiates around to her back. She also states that she has a rash and itching areas on her right lower extremity, however this is not new and she was evaluated by dermatology and given a cream for this already. She denies that this is worse. She denies vomiting, fever, she states she has had difficulty with bowel movements. She is not on a stool softener. She does take oxycodone for chronic pain secondary to postherpetic neuralgia. She also has type 2 diabetes, hypertension, and takes Lasix. She lives alone. She comes by [facility] [employer]. TRAVEL OUTSIDE OF THE [place] IN LAST 30 DAYS: No - Related Data Allergies/Adverse Reactions: codeine [Codeine] Allergy (Severe, Verified 02/13/17 04:20) headache bacitracin [From Neosporin ([id number])] Allergy (Verified 02/13/17 04:20) gabapentin Allergy (Verified 02/13/17 04:20) neomycin [From Neosporin ([id number])] Allergy (Verified 02/13/17 04:20) polymyxin B [From Neosporin ([id number])] Allergy (Verified 02/13/17 04:20) pregabalin [From Lyrica] Allergy (Verified 02/13/17 04:20) Hallucinations Sulfa (Sulfonamide Antibiotics) Allergy (Verified 02/13/17 04:20) itching Home Medications: Current Home Medications Furosemide [Lasix 40 mg Tablet] 40 mg PO ASDIR PRN 02/13/17 [History] Linagliptin/Metformin HCl [Jentadueto 2.5 mg-1000 mg Tab] 1 each PO BID [History] Nitroglycerin [Nitroglycerin] 1 tab SL ASDIR PRN 02/13/17 [History] Past Medical History - General Information source: Patient - Social History Smoking Status: Never Smoker Frequency of alcohol use: None Drug Abuse: None Lives with: Alone Family History: CAD, CVA, DM, Hyperlipidemia, Hypertension Patient has suicidal ideation: No Patient has homicidal ideation: No - Past Medical History Cardiac Medical History: Reports: Hx Coronary Artery Disease, Hx Heart Attack, Hx Hypercholesterolemia, Hx Hypertension Pulmonary Medical History: Reports: Hx Asthma, Hx Bronchitis, Hx COPD, Hx Pneumonia, Hx Sleep Apnea Neurological Medical History: Denies: Hx Cerebrovascular Accident Endocrine Medical History: Reports: Hx Diabetes Mellitus Type 2, Hx Hyperthyroidism, Hx Hypothyroidism. Denies: Hx Graves' Disease Renal/ Medical History: Reports: Hx Kidney Stones. Denies: Hx Ovarian Cysts, Hx Peritoneal Dialysis, Hx Pelvic Inflammatory Disease Malignancy Medical History: Reports: Hx Breast Cancer GI Medical History: Reports: Hx Gastroesophageal Reflux Disease. Denies: Hx Irritable Bowel, Hx Liver Failure, Hx Ulcer Musculoskeltal Medical History: Reports Hx Arthritis, Denies Hx Multiple Sclerosis, Denies Hx Muscular Dystrophy, Reports Hx Musculoskeletal Deformity, Reports Hx Musculoskeletal Trauma Psychiatric Medical History: Reports: Hx Bipolar Disorder, Hx Depression Denies: Hx Schizophrenia Traumatic Medical History: Reports: Hx Fractures - right leg(small break) Infectious Medical History: Past Surgical History: Reports: Hx Adenoidectomy, Hx Appendectomy, Hx Cardiac Catheterization, Hx Cardiac Surgery - Double Bypass, Hx Cholecystectomy, Hx Coronary Artery Bypass Graft - 1996, Hx Hysterectomy, Hx Mastectomy - rt 1994, Hx Orthopedic Surgery - Right Hip replacement, bilateral knee replacements, Hx Tonsillectomy. Denies: Hx Bowel Surgery - Immunizations Immunizations up to date: Yes Hx Diphtheria, Pertussis, Tetanus Vaccination: Yes Hx Pneumococcal Vaccination: 09/07/11 Review of Systems - Review of Systems Constitutional: No symptoms reported EENT: No symptoms reported Cardiovascular: No symptoms reported Respiratory: No symptoms reported Gastrointestinal: See HPI Genitourinary: No symptoms reported Female Genitourinary: No symptoms reported Musculoskeletal: No symptoms reported Skin: See HPI Hematologic/Lymphatic: No symptoms reported Neurological/Psychological: No symptoms reported Physical Exam - Vital signs Vitals: Temp Pulse Resp BP Pulse Ox 97.7 F 93 18 136/97 H 96 02/13/17 00:49 02/13/17 00:49 02/13/17 00:49 02/13/17 00:49 02/13/17 00:49 Interpretation: Normal - General General appearance: Other - Patient intermittently appears to have pain, otherwise she is alert and well-appearing - HEENT Head: Normocephalic, Atraumatic Eyes: Normal Pupils: PERRL - Respiratory Respiratory status: No respiratory distress Chest status: Nontender Breath sounds: Normal. No: Decreased air movement, Wheezing Chest palpation: Normal - Cardiovascular Rhythm: Regular. No: Tachycardia Heart sounds: Normal auscultation, S1 appreciated, S2 appreciated Murmur: Yes - Abdominal Inspection: Normal Distension: No distension Bowel sounds: Normal Tenderness: Tender - Patient with tenderness in bilateral mid to lower abdominal areas, there is not one particular place of guarding however. No rigidity. Organomegaly: No organomegaly - Back Back: Normal, Nontender. No: Tender, CVA tenderness - I do not appreciate any overt CVA tenderness - Extremities General upper extremity: Normal inspection, Nontender, Normal color, Normal ROM , Normal temperature General lower extremity: Normal inspection, Nontender, Normal color, Normal ROM , Normal temperature, Normal weight bearing. No: Jazmyn's sign - Neurological Neuro grossly intact: Yes Cognition: Normal Orientation: AAOx4 [place] Coma Scale Eye Opening: Spontaneous Manjinder Coma Scale Verbal: Oriented [place] Coma Scale Motor: Obeys Commands [place] Coma Scale Total: 15 Speech: Normal Motor strength normal: LUE, RUE, LLE, RLE Sensory: Normal - Psychological Associated symptoms: Normal affect, Normal mood - Skin Skin Temperature: Warm Skin Moisture: Dry Skin Color: Normal Location of irregularity: Other - Right thigh with widespread excoriations, mild erythema, no overt heat, no bleeding or discharge, no fluctuance or induration noted. Healing wound with dressing over the left distal lateral extremity, no purulent drainage, no abnormal heat, no abnormal odor. Course - Re-evaluation Re-evalutation: Patient with a mid to lower abdominal tenderness on examination and by report. CBC shows mild leukocytosis with elevation of eosinophils, no bandemia. No fever or tachycardia. No hypotension. Chemistry unremarkable. Urine unremarkable. CAT scan will be performed after discussion with patient because of her pain symptoms. Patient asking for Benadryl because of the itching of her right lower extremity. This is chronic, she has already been evaluated by dermatology for this. No evidence of cellulitis at this time. CAT scan showing some retained stool, no acute abnormalities. Patient continues to scratch, groan, and complain of pain in multiple areas. She refuses an enema, she refuses any additional treatment, evaluation, or workup. She states she is ready to go home. 02/13/17 07:20 Called and spoke with Vitaly, patient's daughter at [phone]. She states that patient has been increasingly miserable with her scratching, they believe it was a reaction to her recent antibiotic but they are not sure, she is being treated by primary care and dermatology for this. She states that patient's current grounding, scratching, and complaining is her baseline. 02/13/17 Called and spoke with dermatology, Dr. Johnson, discussed patient's condition, lack of improvement with Zyrte, he recommends a round of steroids, he did give me the description of the recommended dosing. I discussed this with patient as well, patient states understanding and agreement. I called patient's daughter back, discussed conversation with emergency department nurse, steroid recommendation, and recommended that patient be seen by dermatology in a close follow-up which will be placed on referral. - Vital Signs Vital signs: Temp Pulse Resp BP Pulse Ox 97.1 F 95 19 102/91 H 93 02/13/17 09:37 02/13/17 09:37 02/13/17 09:37 02/13/17 09:37 02/13/17 09:37 - Laboratory Result Diagrams: 02/13/17 02:35 02/13/17 02:35 Laboratory results interpreted by me: 02/13/17 02/13/17 02:35 02:35 WBC 10.8 H Hgb 11.8 L RDW 15.8 H Eosinophils % 12.2 H Absolute Eosinophils 1.3 H BUN 22 H Est GFR (Non-Af Amer) 55 L Discharge - Discharge Clinical Impression: Rash Abdominal pain Qualifiers: Abdominal location: generalized Qualified Code(s): R10.84 - Generalized abdominal pain Condition: Stable Disposition: HOME, SELF-CARE Additional Instructions: Your cat scan shows some retained stool, take the stool softener, drink plenty of fluids. Lab workup is unremarkable. I spoke with Dr. Johnson, your emergency department nurse, he recommends a course of steroids which has been prescribed for you to take starting today. Avoid carbohydrates (can elevate your blood sugars significantly). Please call him today for scheduling a close follow-up appointment. Return to the ED for any worsening symptoms - fever, vomiting, etc. Prescriptions: Docusate Sodium [Colace 100 mg Capsule] 100 mg PO DAILY #30 capsule Prednisone [Deltasone 10 mg Tablet] 10 mg PO ASDIR PRN #30 tablet PRN Reason: Referrals: OJEOBOH,IBIKUNLE, MD [Primary Care Provider] - Follow up as needed
[2017-02-13 02:54] LABS: ABSOLUTE BASOPHILS # (AUTO) 0.1 10^3/uL (0.0-0.2); ABSOLUTE EOSINOPHILS # (AUTO) 1.3 10^3/uL (0.0-0.6); ABSOLUTE LYMPHOCYTES (AUTO) 2.1 10^3/uL (0.5-4.7); ABSOLUTE MONOCYTES (AUTO) 0.5 10^3/uL (0.1-1.4); ABSOLUTE NEUT (AUTO) 6.8 10^3/uL (1.7-8.2); BASOPHILS % (AUTO) 0.6 % (0-2); EOSINOPHILS % (AUTO) 12.2 % (0-6); HEMATOCRIT 36.6 % (36.0-47.0); HEMOGLOBIN 11.8 g/dL (12.0-15.5); HGB HCT DIFFERENCE -1.2; LYMPHOCYTES % (AUTO) 19.6 % (13-45); MEAN CORPUSCULAR HEMOGLOBIN 27.1 pg (27.0-33.4); MEAN CORPUSCULAR HGB CONC 32.2 g/dL (32.0-36.0); MEAN CORPUSCULAR VOLUME 84 fl (80-97); MONOCYTES % (AUTO) 4.9 % (3-13); RED BLOOD COUNT 4.34 10^6/uL (3.72-5.28); RED CELL DISTRIBUTION WIDTH 15.8 % (11.5-14.0); SEGMENTED NEUTROPHILS % (AUTO) 62.7 % (42-78); WHITE BLOOD COUNT 10.8 10^3/uL (4.0-10.5)
[2017-02-13 03:10] LABS: ALANINE AMINOTRANSFERASE 24 U/L (9-52); ALBUMIN 4.1 g/dL (3.5-5.0); ALKALINE PHOSPHATASE 89 U/L (38-126); ANION GAP 12 (5-19); ASPARTATE AMINO TRANSFERASE 21 U/L (14-36); BILIRUBIN,DIRECT 0.4 mg/dL (0.0-0.4); BILIRUBIN,TOTAL 0.4 mg/dL (0.2-1.3); BLOOD UREA NITROGEN 22 mg/dL (7-20); CALCIUM 9.3 mg/dL (8.4-10.2); CARBON DIOXIDE 29 mmol/L (22-30); CHLORIDE 101 mmol/L (98-107); CREATININE RESULT 0.97 mg/dL (0.52-1.25); GLUCOSE 110 mg/dL (75-110); POTASSIUM 4.3 mmol/L (3.6-5.0); TOTAL PROTEIN 6.5 g/dL (6.3-8.2)
[2017-02-13 03:44] LABS: APPEARANCE,URINE CLEAR; BILIRUBIN,URINE NEGATIVE (NEGATIVE); GLUCOSE, URINE NEGATIVE (NEGATIVE); KETONES,URINE NEGATIVE (NEGATIVE); LEUKOCYTE ESTERASE,URINE NEGATIVE (NEGATIVE); NITRITE,URINE NEGATIVE (NEGATIVE); PROTEIN,URINE NEGATIVE (NEGATIVE); URINE SPECIFIC GRAVITY 1.029; UROBILINOGEN,URINE NEGATIVE mg/dL (<2.0)
[2017-02-13] MEDS ORDERED: DIPHENHYDRAMINE HCL 25 MG CAPSULE PO ONE (03:54)
--- NOTE | 2017-02-13 06:51 | RADIOLOGY REPORT (SQ) ---
EXAM DESCRIPTION: CT ABD/PELVIS WITH IV ORAL COMPLETED DATE/TIME: 02/13/2017 6:19 am REASON FOR STUDY: mid abd pain COMPARISON: None. TECHNIQUE: CT scan of the abdomen and pelvis performed using helical scanning technique with dynamic intravenous contrast injection. No oral contrast. Images reviewed with lung, soft tissue, and bone windows. Reconstructed coronal and sagittal MPR images reviewed. Delayed images for evaluation of the urinary system also acquired. All images stored on PACS. All CT scanners at this facility use dose modulation, iterative reconstruction, and/or weight based d osing when appropriate to reduce radiation dose to as low as reasonably achievable (ALARA). [facility]: Dose Right [facility]: CareDose [facility]: Dose Right [facility]: Teradose 4D [facility]: Cerora CONTRAST TYPE AND DOSE: contrast/concentration: Isovue 370.00 mg/ml; Total Contrast Delivered: 96.0 ml; Total Saline Delivered: 59.0 ml RENAL FUNCTION: 04/16/2015. RADIATION DOSE: Up-to-date CT equipment and radiation dose reduction techniques were employed. CTDIv ol: 28.2 mGy. DLP: 2920 mGy-cm.. LIMITATIONS: None. FINDINGS: LOWER CHEST: Median sternotomy. Coronary arterial calcification. Mild mixed interstitial and airspace opacity of the lung bases. Mild centrilobular emphysema of the lung bases. LIVER: Normal size. No masses. Mild chronic enlargement of the intrahepatic ductal system. SPLEEN: Normal size. No focal lesions. PANCREAS: No masses. No significant calcifications. No adjacent inflammation or peripancreatic fluid collections. Pancreatic duct not dilated. GALLBLADDER: Surgically absent. ADRENAL GLANDS: Chronic likely benign 1.4 cm in left adrenal nodularity without significant interval change compared with prior CT from 04/16/2015. RIGHT KIDNEY AND URETER: No solid masses. No significant calcifications. No hydronephrosis or hyd roureter. LEFT KIDNEY AND URETER: No solid masses. No significant calcifications. No hydronephrosis or hydr oureter. AORTA AND VESSELS: No aneurysm. No dissection. Advanced atherosclerosis involves the abdominal aorta and roots of the major abdominal vessels. RETROPERITONEUM: No retroperitoneal adenopathy, hemorrhage or masses. BOWEL AND PERITONEAL CAVITY: Moderate right colonic stool retention. Moderate diverticulosis. APPENDIX: No evidence of appendicitis. PELVIS: No mass. No free fluid. Normal bladder. ABDOMINAL WALL: New 1.0 cm in mild lymph node enlargement and/or nonspecific nodule/granuloma of the right paracentral abdominal wall, image 43 of series 3. BONES: Bilateral total hip arthroplasty. Left protrusion acetabuli, stable. Moderate L3-L4 vacuum disc desiccation. OTHER: No other significant finding. IMPRESSION: Stable mild intrahepatic ductal dilation. New single 1.0 cm lymph node/granuloma of the right paracentral abdominal wall, nonspecific. Advanced atherosclerosis. TECHNICAL DOCUMENTATION: JOB ID: [id number] Quality ID # [id number]: Final reports with documentation of one or more dose reduction techniques (e.g., Au tomated exposure control, adjustment of the mA and/or kV according to patient size, use of iterative reconstruction technique) 2010 [employer]- All Rights Reserved
[2017-02-13] MEDS ORDERED: DOCUSATE SODIUM 100 MG CAPSULE PO ONE (07:17)
[2017-02-13 09:38] VITALS: BP 102/91
== END 2017-02-13 09:38 | disposition home or self-care (01) ==
LOC: ER 00:42
DX: K59.00 Constipation, unspecified (principal); R10.84 Generalized abdominal pain; R21 Rash and other nonspecific skin eruption; L29.8 Other pruritus; D72.1 Eosinophilia; B02.29 Other postherpetic nervous system involvement; G89.29 Other chronic pain; Z79.891 Long term (current) use of opiate analgesic; E11.9 Type 2 diabetes mellitus without complications; I10 Essential (primary) hypertension; I25.10 Atherosclerotic heart disease of native coronary artery without angina pectoris; I25.2 Old myocardial infarction; J44.9 Chronic obstructive pulmonary disease, unspecified; Z79.899 Other long term (current) drug therapy; Z95.1 Presence of aortocoronary bypass graft; Z88.5 Allergy status to narcotic agent; Z88.3 Allergy status to other anti-infective agents; Z88.2 Allergy status to sulfonamides; Z88.6 Allergy status to analgesic agent; Z85.3 Personal history of malignant neoplasm of breast; Z87.442 Personal history of urinary calculi; Z90.49 Acquired absence of other specified parts of digestive tract; Z90.710 Acquired absence of both cervix and uterus
CPT/HCPCS: 99284; 51701; 96374; 36415; 85025; 80053; 81001; 74177; A9270 ×2; J3010

== ENCOUNTER 2017-03-19 23:55 | Emergency (ER) | payer MEDICARE, MEDICAID ==
[2017-03-20] MEDS ORDERED: DEXAMETHASONE 4 MG TABLET PO ONE (00:37)
[2017-03-20] MEDS ORDERED: OXYCODONE HCL IR 5 MG TABLET PO ONE (01:00)
--- NOTE | 2017-03-20 01:05 | ER Document Report ---
ED General - General Stated Complaint: SKIN IRRITATION Time Seen by Provider: 03/20/17 00:02 TRAVEL OUTSIDE OF THE [place] IN LAST 30 DAYS: No - HPI Notes: Patient is an 86-year-old female who presents the ED complaining of a generalized rash 2 months. Patient states that the rash is pruritic area patient states that she has been seen by the vice president sales with the most recent visit being last week and was placed on clobetasol ointment. Patient states that she was told that she is allergic to Tide detergent patient states that her rash was improving until she used a blanket. Last night that had been washed in Tide and noticed the development of a new pressure area on her right anterior knee. She has not noticed any purulent discharge, abscess, or red streaks. Patient states that her left hip has been bothering her with no known injury with prev SHARRI. Otherwise she is still eating and drinking without any difficulties. Denies any recent illness, travel, or exposure to sick contacts. No other concerns or complaints. Denies any headache, fever, head injury, neck pain, URI, sore throat, chest pain, palpitations, syncope, cough, shortness of breath, wheeze, dyspnea, abdominal pain, nausea/vomiting/diarrhea, or rash. - Related Data Allergies/Adverse Reactions: codeine [Codeine] Allergy (Severe, Verified 02/13/17 04:20) headache bacitracin [From Neosporin ([id number])] Allergy (Verified 02/13/17 04:20) gabapentin Allergy (Verified 02/13/17 04:20) neomycin [From Neosporin ([id number]-aml-[id number])] Allergy (Verified 02/13/17 04:20) polymyxin B [From Neosporin ([id number])] Allergy (Verified 02/13/17 04:20) pregabalin [From Lyrica] Allergy (Verified 02/13/17 04:20) Hallucinations Sulfa (Sulfonamide Antibiotics) Allergy (Verified 02/13/17 04:20) itching Past Medical History - Social History Smoking Status: Unknown if Ever Smoked Family History: CAD, CVA, DM, Hyperlipidemia, Hypertension - Past Medical History Cardiac Medical History: Reports: Hx Coronary Artery Disease, Hx Heart Attack, Hx Hypercholesterolemia, Hx Hypertension Pulmonary Medical History: Reports: Hx Asthma, Hx Bronchitis, Hx COPD, Hx Pneumonia, Hx Sleep Apnea Neurological Medical History: Denies: Hx Cerebrovascular Accident Endocrine Medical History: Reports: Hx Diabetes Mellitus Type 2, Hx Hyperthyroidism, Hx Hypothyroidism. Denies: Hx Graves' Disease Renal/ Medical History: Reports: Hx Kidney Stones. Denies: Hx Ovarian Cysts, Hx Peritoneal Dialysis, Hx Pelvic Inflammatory Disease Malignancy Medical History: Reports: Hx Breast Cancer GI Medical History: Reports: Hx Gastroesophageal Reflux Disease. Denies: Hx Irritable Bowel, Hx Liver Failure, Hx Ulcer Musculoskeltal Medical History: Reports Hx Arthritis, Denies Hx Multiple Sclerosis, Denies Hx Muscular Dystrophy, Reports Hx Musculoskeletal Deformity, Reports Hx Musculoskeletal Trauma Psychiatric Medical History: Reports: Hx Bipolar Disorder, Hx Depression Denies: Hx Schizophrenia Traumatic Medical History: Reports: Hx Fractures - right leg(small break) Infectious Medical History: Past Surgical History: Reports: Hx Adenoidectomy, Hx Appendectomy, Hx Cardiac Catheterization, Hx Cardiac Surgery - Double Bypass, Hx Cholecystectomy, Hx Coronary Artery Bypass Graft - 1996, Hx Hysterectomy, Hx Mastectomy - rt 1994, Hx Orthopedic Surgery - Right Hip replacement, bilateral knee replacements, Hx Tonsillectomy. Denies: Hx Bowel Surgery - Immunizations Immunizations up to date: Yes Hx Diphtheria, Pertussis, Tetanus Vaccination: Yes Hx Pneumococcal Vaccination: 09/07/11 Review of Systems - Review of Systems Notes: REVIEW OF SYSTEMS: CONSTITUTIONAL : Denies fever, chills, or sweats. Denies recent illness. EENT: Denies eye, ear, throat, or mouth pain or symptoms. Denies nasal or sinus congestion or discharge. Denies throat, tongue, or mouth swelling or difficulty swallowing. CARDIOVASCULAR: Denies chest pain. Denies palpitations or racing or irregular heart beat. Denies ankle edema. RESPIRATORY: Denies cough, cold, or chest congestion. Denies shortness of breath, difficulty breathing, or wheezing. GASTROINTESTINAL: Denies abdominal pain or distention. Denies nausea, vomiting , or diarrhea. Denies blood in vomitus, stools, or per rectum. Denies black, tarry stools. Denies constipation. GENITOURINARY: Denies difficulty urinating, painful urination, burning, frequency, blood in urine, or discharge. MUSCULOSKELETAL: see hpi SKIN: see hpi NEUROLOGICAL: Denies confusion or altered mental status. Denies passing out or loss of consciousness. Denies dizziness or lightheadedness. Denies headache. Denies weakness or paralysis or loss of use of either side. Denies sensory loss, numbness, or tingling. ALL OTHER SYSTEMS REVIEWED AND NEGATIVE. Dictation was performed using [employer] voice recognition software Physical Exam - Vital signs Notes: PHYSICAL EXAMINATION: GENERAL: Well-appearing, well-nourished and in no acute distress. HEAD: Atraumatic, normocephalic. EYES: Pupils equal round and reactive to light, extraocular movements intact, sclera anicteric, conjunctiva are normal. ENT: Nares patent and without discharge. oropharynx clear without exudates. No tonsilar hypertrophy or erythema. Moist mucous membranes. No sinus tenderness. NECK: Normal range of motion, supple without lymphadenopathy LUNGS: Breath sounds clear to auscultation bilaterally and equal. No wheezes rales or rhonchi. HEART: Regular rate and rhythm without murmurs, rubs, gallops. Musculoskeletal: Lt hip: FROM to passive/active. Strength 5+/5. + tenderness to palp of the lateral hip. Extremities: No cyanosis, clubbing, or edema b/l. Peripheral pulses 2+. Capillary refill less than 3 seconds. NEUROLOGICAL: Normal speech. Normal sensory, motor exams PSYCH: Normal mood, normal affect. SKIN: generalized erythemic macular lesions with excoriations noted. Most are scabbed over and appear to be healing. Rt anterior knee has vesicular bullae style lesions. No dermatomal pattern. Non-tender. No abscess or streaks. Course - Re-evaluation Re-evalutation: 03/20/17 02:10 Patient is an afebrile, well-hydrated, 86-year-old female who presents the ED with a contact irritant dermatitis and left hip pain. Patient is artery been seen by the vice president sales and was told that she is allergic to type. Decadron 8 mg given p.o. today. Patient advised to watch her glucose very closely while on this medication. Patient to continue use of clobetasol as directed and to call her vice president sales tomorrow for further evaluation and management. X-ray of the left hip was unremarkable for any acute fracture or dislocation. Patient takes 10 mg of oxycodone every 6 hours for years. Advised patient that she needs to have a recheck with her PCM for any continued hip pain at this point. Conservative measures for symptoms otherwise. Low suspicion/risk for any other systemic emergent condition at this time. Return to the ED with any worsening/concerning symptoms otherwise as reviewed in discharge. Recheck with your PCM in 2-3 days. Patient is in agreement. Discharge - Discharge Clinical Impression: Left hip pain, Dermatitis Condition: Stable Disposition: HOME, SELF-CARE Instructions: Contact Dermatitis ([facility]), Corticosteroid Medication ([facility]), Tone Cabinet Assembler, Oral Narcotic Medication ([facility]), Topical Steroid Cream or Ointment ([facility]) Additional Instructions: Keep the skin clean and dry Use steroid cream as directed by her vice president sales Avoid Tide detergent Rest, Ice, heat, tylenol/ibuprofen as needed for hip pain Monitor symptoms for any acute changes Recheck with your vice president sales this week Recheck with your PCM this week Return to the ED with any worsening symptoms and/or development of fever, headache, chest pain, palpitations, syncope, shortness of breath, trouble breathing, abdominal pain, n/v/d, blood in stool/urine, abscess, red streaks, purulent discharge, or other worsening symptoms that are concerning to you. Referrals: DERMATOLOGY [Provider Group] - Follow up in 3-5 days
--- NOTE | 2017-03-20 01:28 | RADIOLOGY REPORT (SQ) ---
EXAM DESCRIPTION: HIP LEFT AP/LATERAL COMPLETED DATE/TIME: 03/20/2017 1:17 am REASON FOR STUDY: left hip pain COMPARISON: CR, 11/04/2013. NUMBER OF VIEWS: Two views. 3 images. TECHNIQUE: AP pelvis and additional frog-leg view of the left hip. LIMITATIONS: None. FINDINGS: MINERALIZATION: Moderate demineralization. LEFT HIP: Interval total hip arthroplasty with mild-moderate protrusio acetabulae. RIGHT HIP: Total hip arthroplasty with no evidence of metal fracture or loosening. Extensive heterot opic ossification deformity without significant interval change. PUBIS AND ISCHIUM: No fracture. PELVIS: No fracture. SACRUM: No fracture or dislocation. No worrisome bone lesions. LOWER LUMBAR SPINE: No fracture or dislocation. No worrisome bone lesions. Moderate disc desiccation . SOFT TISSUES: No findings. OTHER: No other significant finding. IMPRESSION: No acute findings. Bilateral total hip arthroplasty includes [id number] left prot rusio acetabulae. TECHNICAL DOCUMENTATION: JOB ID: [id number] [email or web address]- All Rights Reserved
[2017-03-20 03:06] VITALS: BP 155/78
== END 2017-03-20 03:06 | disposition home or self-care (01) ==
LOC: ER 23:55
DX: M25.552 Pain in left hip (principal); L30.9 Dermatitis, unspecified; I25.10 Atherosclerotic heart disease of native coronary artery without angina pectoris; E78.00 Pure hypercholesterolemia, unspecified; I10 Essential (primary) hypertension; E11.9 Type 2 diabetes mellitus without complications; E03.9 Hypothyroidism, unspecified; Z88.2 Allergy status to sulfonamides; Z88.6 Allergy status to analgesic agent; Z87.442 Personal history of urinary calculi; Z85.3 Personal history of malignant neoplasm of breast; I25.2 Old myocardial infarction; Z95.1 Presence of aortocoronary bypass graft; Z96.641 Presence of right artificial hip joint; Z96.653 Presence of artificial knee joint, bilateral; Z90.11 Acquired absence of right breast and nipple
CPT/HCPCS: 99284; 73502; A9270 ×2

== ENCOUNTER 2017-03-29 10:03 | Inpatient (IN) | payer MEDICARE, MEDICAID ==
[2017-03-29] MEDS ORDERED: NORMAL SALINE 1000 ML 1,000 ML IV PRN (10:44)
--- NOTE | 2017-03-29 11:40 | RADIOLOGY REPORT (SQ) ---
EXAM DESCRIPTION: CT HEAD WITHOUT COMPLETED DATE/TIME: 03/29/2017 11:19 am REASON FOR STUDY: delirium COMPARISON: CT brain 01/04/2013, 10/01/2013 TECHNIQUE: Axial images acquired through the brain without intravenous contrast. Images reviewed wi th bone, brain and subdural windows. Images stored on PACS. All CT scanners at this facility use dose modulation, iterative reconstruction, and/or weight based d osing when appropriate to reduce radiation dose to as low as reasonably achievable (ALARA). [facility]: Dose Right [facility]: CareDose [facility]: Dose Right [facility]: Teradose 4D [facility]: Smart [employer] RADIATION DOSE: Up-to-date CT equipment and radiation dose reduction techniques were employed. CTDIv ol: 62.8 mGy. DLP: 2326 mGy-cm. mGy. LIMITATIONS: Motion artifact, patient scanned twice FINDINGS: VENTRICLES: Normal size and contour. CEREBRUM: No masses. No acute hemorrhage. No midline shift. No evidence for large territory acute infarction. There is spotty bifrontal and biparietal low attenuation in the hemispheric white matter from chronic small vessel disease. CEREBELLUM: No masses. No hemorrhage. No alteration of density. No evidence for acute infarction. EXTRAAXIAL SPACES: No fluid collections. No masses. ORBITS AND GLOBE: No intra- or extraconal masses. Normal contour of globe without masses. CALVARIUM: No fracture. PARANASAL SINUSES: No fluid or mucosal thickening. SOFT TISSUES: No mass or hematoma. OTHER: No other significant finding. IMPRESSION: No acute findings EVIDENCE OF ACUTE STROKE: NO. COMMENT: Quality ID # [id number]: Final reports with documentation of one or more dose reduction techniques (e.g., Automated exposure control, adjustment of the mA and/or kV according to patient size, use of iterative reconstruction technique) TECHNICAL DOCUMENTATION: JOB ID: [id number] [employer]- All Rights Reserved
--- NOTE | 2017-03-29 11:51 | RADIOLOGY REPORT (SQ) ---
EXAM DESCRIPTION: CHEST PA/LAT COMPLETED DATE/TIME: 03/29/2017 11:33 am REASON FOR STUDY: COPD COMPARISON: CT chest 10/18/2016, 11/18/2016 Chest films 10/31/2016, 11/17/2016, 01/27/2017 EXAM PARAMETERS: NUMBER OF VIEWS: two views TECHNIQUE: Digital Frontal and Lateral radiographic views of the chest acquired. RADIATION DOSE: NA LIMITATIONS: none FINDINGS: LUNGS AND PLEURA: No opacities, masses or pneumothorax. No pleural effusion. MEDIASTINUM AND HILAR STRUCTURES: No masses or contour abnormalities. HEART AND VASCULAR STRUCTURES: No cardiomegaly. Old sternotomy for CABG. BONES: Osteoporotic. Old healed right proximal humerus metaphysis fracture. HARDWARE: Surgical clips over the right axilla post mastectomy. OTHER: No other significant finding. IMPRESSION: Old CABG. No acute findings TECHNICAL DOCUMENTATION: JOB ID: [id number] [employer]- All Rights Reserved
[2017-03-29] MEDS ORDERED: LEVOFLOXACIN 750 MG TABLET PO SCH (12:00)
[2017-03-29 13:00] LABS: HEMATOCRIT 31.4 % (36.0-47.0); HEMOGLOBIN 10.5 g/dL (12.0-15.5); HGB HCT DIFFERENCE 0.1; MEAN CORPUSCULAR HGB CONC 33.3 g/dL (32.0-36.0); MEAN CORPUSCULAR VOLUME 81 fl (80-97); RED BLOOD COUNT 3.88 10^6/uL (3.72-5.28); RED CELL DISTRIBUTION WIDTH 16.4 % (11.5-14.0); WHITE BLOOD COUNT 10.1 10^3/uL (4.0-10.5)
[2017-03-29 13:19] LABS: ALANINE AMINOTRANSFERASE 30 U/L (9-52); ALBUMIN 3.3 g/dL (3.5-5.0); ALKALINE PHOSPHATASE 81 U/L (38-126); ANION GAP 8 (5-19); ASPARTATE AMINO TRANSFERASE 26 U/L (14-36); BILIRUBIN,DIRECT 0.3 mg/dL (0.0-0.4); BILIRUBIN,TOTAL 0.7 mg/dL (0.2-1.3); BLOOD UREA NITROGEN 17 mg/dL (7-20); CALCIUM 9.4 mg/dL (8.4-10.2); CARBON DIOXIDE 26 mmol/L (22-30); CHLORIDE 106 mmol/L (98-107); CREATINE KINASE 264 U/L (30-135); CREATININE RESULT 0.77 mg/dL (0.52-1.25); GLUCOSE 140 mg/dL (75-110); POTASSIUM 3.9 mmol/L (3.6-5.0); SODIUM 139.6 mmol/L (137-145); TOTAL PROTEIN 5.6 g/dL (6.3-8.2)
[2017-03-29 13:31] LABS: CREATINE KINASE MB 3.37 ng/mL (<4.55); TROPONIN I 0.026 ng/mL
[2017-03-29 19:22] LABS: CREATINE KINASE MB 2.91 ng/mL (<4.55)
[2017-03-29 19:27] LABS: TROPONIN I 0.04 ng/mL
[2017-03-29] MEDS: OXYCODONE-ACETAMINOPHEN 5-325 MG TABLET PO PRN ×2 (19:39→23:31)
[2017-03-29 20:33] LABS: ARTERIAL BLOOD BASE EXCESS 0.6 mmol/L; ARTERIAL BLOOD O2 SATURATION 93.7 % (94-98)
--- NOTE | 2017-03-29 22:06 | PDOC H&P ---
History of Present Illness Admission Date/PCP: 03/29/17 10:03 DENICE MORRIS MD History of Present Illness: SINAN MONTGOMERY is a 86 year old female,She has multiple comorbid conditions including COPD, coronary artery disease, she came to the office this morning with the daughter for evaluation of hallucination, the daughter was concerned about this patient because she was hallucinating seeing things that no one else was seeing ,talking out of her head. She has severe skin rash that is presently not diagnosed she saw the hide and skin colerer 2 days ago and a skin biopsy was taken, the rash is very pruritic and patient apparently was prescribed Benadryl by the cafe team member. When she came to the office this morning she was very confused and disoriented to time place and person ,with tremors, agitated and ataxic, patient daughter said that she has been taking Benadryl very frequently, she was admitted for evaluation from the office CT head was negative the intrahepatic syndrome could be related to the medication, Benadryl that she was taking very frequently.She has been taking Benadryl every 4 hours almost on a scheduled for pruritus, that could be the etiology of the encephalopathy. Past Medical History Cardiac Medical History: Reports: Coronary Artery Disease, Myocardial Infarction , Hyperlipidema, Hypertension Pulmonary Medical History: Reports: Asthma, Bronchitis, Chronic Obstructive Pulmonary Disease (COPD), Pneumonia, Sleep Apnea Neurological Medical History: Endocrine Medical History: Reports: Diabetes Mellitus Type 2, Hyperthyroidism, Hypothyroidism Renal/ Medical History: Malignancy Medical History: Reports: Breast Cancer GI Medical History: Reports: Gastroesophageal Reflux Disease Musculoskeltal Medical History: Reports: Arthritis Denies: Fibromyalgia Psychiatric Medical History: Reports: Bipolar Disorder, Depression Hematology: Reports: Anemia Infectious Medical History: Past Surgical History Past Surgical History: Reports: Adenoidectomy, Appendectomy, Cardiac Catheterization, Cholecystectomy, Coronary Artery Bypass Graft - 1996, Hysterectomy, Mastectomy - rt 1994, Orthopedic Surgery - Right Hip replacement, bilateral knee replacements, Tonsillectomy Social History Smoking Status: Former Smoker Frequency of Alcohol Use: None Hx Recreational Drug Use: No Drugs: None Hx Prescription Drug Abuse: No Family History Family History: CAD, CVA, DM, Hyperlipidemia, Hypertension Parental Family History Reviewed: Yes Children Family History Reviewed: Yes Sibling(s) Family History Reviewed.: Yes Medication/Allergy Home Medications: Albuterol Sulfate [Albuterol Sulfate 2.5mg/3 mL] 1 vial NEB Q6HP PRN 03/30/17 Albuterol Sulfate [Proair HFA Inhalation Aerosol 8.5 gm MDI] 2 puff IH Q4HP PRN 03/30/17 Aspirin [Aspirin 81 mg Chewable Tablet] 81 mg PO DAILY 03/30/17 Budesonide/Formoterol Fumarate [Symbicort HFA 160-4.5 mcg Inhaler 6 gm] 2 puff IH Q12 03/30/17 Duloxetine HCl [Cymbalta] 60 mg PO BID 03/30/17 Ergocalciferol (Vitamin D2) [Drisdol 50,000 unit (1.25MG) Capsule] 50,000 unit PO HURST@1000 03/30/17 Fentanyl [Duragesic 50 Mcg/Hr Transdermal Patch] 1 patch TOP Q72H 03/30/17 Isosorbide Mononitrate [Imdur 30 mg Tablet.er] 30 mg PO DAILY 03/30/17 Linagliptin/Metformin HCl [Jentadueto 2.5 mg-1000 mg Tab] 1 tab PO BID 03/30/17 Loratadine [Claritin 10 mg Tablet] 10 mg PO DAILY 03/30/17 Losartan Potassium [Cozaar 100 mg Tablet] 100 mg PO DAILY 03/30/17 Magnesium Oxide [Mag-Ox 400 mg Tablet] 400 mg PO DAILY 03/30/17 Metoprolol Tartrate [Lopressor 100 mg Tablet] 100 mg PO DAILY 03/30/17 Mirabegron [Myrbetriq] 25 mg PO DAILY 03/30/17 Montelukast Sodium [Singulair 10 mg Tablet] 10 mg PO QPM 03/30/17 Ondansetron HCl [Zofran 4 mg Tablet] 4 mg PO TIDP PRN 03/30/17 Oxycodone HCl/Acetaminophen [Percocet 10-325 mg Tablet] 1 tab PO Q6 03/30/17 Potassium Chloride [Klor-Con M20] 20 meq PO DAILY 03/30/17 Pramipexole Di-HCl [Pramipexole Dihydrochloride] 0.25 mg PO DAILY 03/30/17 Pravastatin Sodium [Pravachol] 40 mg PO QHS 03/30/17 Spironolactone [Aldactone] 50 mg PO DAILY 03/30/17 Tiotropium [place] [Spiriva Respimat] 2 puff IH DAILY 03/30/17 Allergies/Adverse Reactions: codeine [Codeine] Allergy (Severe, Verified 02/13/17 04:20) headache bacitracin [From Neosporin ([id number])] Allergy (Verified 02/13/17 04:20) gabapentin Allergy (Verified 02/13/17 04:20) neomycin [From Neosporin ([id number])] Allergy (Verified 02/13/17 04:20) polymyxin B [From Neosporin ([id number])] Allergy (Verified 02/13/17 04:20) pregabalin [From Lyrica] Allergy (Verified 02/13/17 04:20) Hallucinations Sulfa (Sulfonamide Antibiotics) Allergy (Verified 02/13/17 04:20) itching Review of Systems Constitutional: PRESENT: fatigue Eyes: ABSENT: visual disturbances Ears: ABSENT: hearing changes Cardiovascular: ABSENT: as per HPI, chest pain, dyspnea on exertion, edema, orthropnea, palpitations, other Respiratory: PRESENT: cough Gastrointestinal: ABSENT: abdominal pain, constipation, diarrhea, hematemesis, hematochezia, nausea, vomiting Genitourinary: PRESENT: dysuria, nocturia, other - Frequency of urination Musculoskeletal: PRESENT: back pain Integumentary: PRESENT: erythema, pruritus, rash Neurological: PRESENT: abnormal gait Psychiatric: PRESENT: hallucinations Physical Exam Vital Signs: Temp Pulse Resp BP Pulse Ox 98.2 F 91 16 147/59 H 95 03/29/17 20:18 03/29/17 20:18 03/29/17 20:18 03/29/17 20:18 03/29/17 20:18 Intake & Output 03/28/17 03/29/17 03/30/17 06:59 06:59 06:59 Intake Total 220 Balance 220 Weight 95 kg General appearance: PRESENT: mild distress Head exam: PRESENT: atraumatic, normocephalic Eye exam: PRESENT: PERRLA. ABSENT: scleral icterus Ear exam: PRESENT: normal external ear exam Mouth exam: PRESENT: moist, tongue midline Neck exam: PRESENT: full ROM Respiratory exam: PRESENT: rhonchi Cardiovascular exam: PRESENT: RRR, +S1, +S2 Vascular exam: PRESENT: normal capillary refill GI/Abdominal exam: PRESENT: normal bowel sounds, soft Rectal exam: PRESENT: deferred Neurological exam: PRESENT: alert, awake, oriented to person, oriented to place , oriented to time, oriented to situation, CN II-XII grossly intact Psychiatric exam: PRESENT: appropriate affect, normal mood Skin exam: PRESENT: rash Results Laboratory Results: 03/29/17 12:45 03/29/17 12:45 03/29/17 03/29/17 03/29/17 12:45 12:45 17:15 WBC 10.1 RBC 3.88 Hgb 10.5 L Hct 31.4 L MCV 81 MCH 27.0 MCHC 33.3 RDW 16.4 H Plt Count 295 Carbonic Acid 1.14 HCO3/H2CO3 Ratio 21:1 ABG pH 7.43 ABG pCO2 37.8 ABG pO2 66.1 L ABG HCO3 24.7 ABG O2 Saturation 93.7 L ABG Base Excess 0.6 FiO2 3L Sodium 139.6 Potassium 3.9 Chloride 106 Carbon Dioxide 26 Anion Gap 8 BUN 17 Creatinine 0.77 Est GFR ( Amer) > 60 Est GFR (Non-Af Amer) > 60 Glucose 140 H Calcium 9.4 Total Bilirubin 0.7 AST 26 ALT 30 Alkaline Phosphatase 81 Total Protein 5.6 L Albumin 3.3 L 03/29/17 03/29/17 03/29/17 12:45 12:45 18:45 Creatine Kinase 264 H 285 H CK-MB (CK-2) 3.37 Troponin I 0.026 03/29/17 18:45 Creatine Kinase CK-MB (CK-2) 2.91 Troponin I 0.040 Impressions: Chest X-Ray 03/29/17 00:00 IMPRESSION: Old CABG. No acute findings Head CT 03/29/17 00:00 IMPRESSION: No acute findings EVIDENCE OF ACUTE STROKE: NO. Assessment & Plan - Diagnosis (1) Toxic encephalopathy Is this a current diagnosis for this admission?: Yes Plan: The encephalopathy is most likely related to the Benadryl that she has been taking frequently for the control pruritus (2) Urinary tract infection Qualifiers: Urinary tract infection type: site unspecified Hematuria presence: without hematuria Qualified Code(s): N39.0 - Urinary tract infection, site not specified Is this a current diagnosis for this admission?: Yes Plan: She probably have urinary tract infection, the urine sample is not collected yet but she has urinary symptoms she will empirically be treated with antibiotic. (3) Chronic obstructive lung disease Qualifiers: COPD type: COPD with acute exacerbation Qualified Code(s): J44.1 - Chronic obstructive pulmonary disease with (acute) exacerbation Is this a current diagnosis for this admission?: Yes (4) Chronic pain syndrome Is this a current diagnosis for this admission?: Yes (5) Coronary artery disease Qualifiers: Coronary Disease-Associated Artery/Lesion type: [place] artery [place] vs. transplanted heart: [place] heart Associated angina: without angina Qualified Code(s): I25.10 - Atherosclerotic heart disease of [place] coronary artery without angina pectoris Is this a current diagnosis for this admission?: Yes (6) Idiopathic chronic venous hypertension of lower extremity with inflammation Qualifiers: Laterality: bilateral Qualified Code(s): I87.323 - Chronic venous hypertension (idiopathic) with inflammation of bilateral lower extremity Is this a current diagnosis for this admission?: Yes (7) Morbid obesity due to excess calories Is this a current diagnosis for this admission?: Yes
[2017-03-29 23:01] LABS: PARTIAL THROMBOPLASTIN TIME 32.6 SEC (23.5-35.8)
[2017-03-29 23:11] LABS: LIPASE 217.7 U/L (23-300); MAGNESIUM 1.4 mg/dL (1.6-2.3); PHOSPHORUS 4.5 mg/dL (2.5-4.5)
[2017-03-29 23:41] LABS: THYROID STIMULATING HORMONE 0.78 uIU/mL (0.47-4.68)
[2017-03-30 02:39] LABS: HEMATOCRIT 34.9 % (36.0-47.0); HEMOGLOBIN 11.5 g/dL (12.0-15.5); HGB HCT DIFFERENCE -0.4; MEAN CORPUSCULAR HEMOGLOBIN 26.8 pg (27.0-33.4); MEAN CORPUSCULAR HGB CONC 32.8 g/dL (32.0-36.0); MEAN CORPUSCULAR VOLUME 82 fl (80-97); RED BLOOD COUNT 4.28 10^6/uL (3.72-5.28); RED CELL DISTRIBUTION WIDTH 16.5 % (11.5-14.0)
[2017-03-30 02:50] LABS: ALANINE AMINOTRANSFERASE 31 U/L (9-52); ALBUMIN 3.4 g/dL (3.5-5.0); ALKALINE PHOSPHATASE 84 U/L (38-126); ANION GAP 8 (5-19); ASPARTATE AMINO TRANSFERASE 31 U/L (14-36); BILIRUBIN,DIRECT 0.4 mg/dL (0.0-0.4); BILIRUBIN,TOTAL 0.9 mg/dL (0.2-1.3); BLOOD UREA NITROGEN 15 mg/dL (7-20); CALCIUM 9.6 mg/dL (8.4-10.2); CARBON DIOXIDE 24 mmol/L (22-30); CHLORIDE 110 mmol/L (98-107); CHOLESTEROL 172.86 mg/dL (0-200); Direct HDL 76 mg/dL (>40); GLUCOSE 114 mg/dL (75-110); POTASSIUM 4.3 mmol/L (3.6-5.0); SODIUM 141.5 mmol/L (137-145); TOTAL PROTEIN 5.7 g/dL (6.3-8.2); TRIGLYCERIDES 87 mg/dL (<150)
[2017-03-30 03:00] LABS: DIRECT LDL 77 mg/dL (<100)
[2017-03-30 03:01] LABS: CREATINE KINASE MB 2.92 ng/mL (<4.55); TROPONIN I 0.031 ng/mL
[2017-03-30 03:30] LABS: BASOPHILS % (MANUAL) 0 % (0-2); EOSINOPHILS % (MANUAL) 4 % (0-6); LYMPHOCYTES % (MANUAL) 9 % (13-45); TOTAL CELLS COUNTED 100
[2017-03-30 03:34] LABS: ANISOCYTOSIS 1+
[2017-03-30] MEDS: OXYCODONE-ACETAMINOPHEN 5-325 MG TABLET PO PRN ×4 (03:53→19:17)
[2017-03-30] MEDS: ENOXAPARIN SODIUM INJ 40 MG/0.4 ML DISP.SYRIN SUBCUT SCH (09:50)
--- NOTE | 2017-03-30 11:18 | EKG REPORT ---
SEVERITY:- OTHERWISE NORMAL ECG - SINUS TACHYCARDIA : Confirmed by: Dora Gonzalez MD 30-Mar-2017 11:17:03
[2017-03-30] MEDS ORDERED: ALBUTEROL SULFATE HFA (90 MCG/PUFF) 200 PUFF/8.5 GM MDI IH PRN (13:27)
[2017-03-30] MEDS ORDERED: ALBUTEROL SULFATE 0.083% NEB 2.5 MG/3 ML AMPUL NEB PRN (13:27)
[2017-03-30] MEDS ORDERED: METFORMIN HCL PO SCH (13:30)
[2017-03-30] MEDS ORDERED: LINAGLIPTIN PO SCH (13:30)
[2017-03-30] MEDS ORDERED: BUDESONIDE/FORMOTEROL 160-4.5 MCG 60 PUFF/6 GM MDI IH ONE (14:30)
[2017-03-30] MEDS ORDERED: ASPIRIN 81 MG TABLET, CHEWABLE PO ONE (14:30)
[2017-03-30] MEDS ORDERED: ISOSORBIDE MONONITRATE 30 MG TAB.ER.24H PO ONE (14:30)
[2017-03-30] MEDS ORDERED: METOPROLOL TARTRATE 100 MG TABLET PO ONE (14:30)
[2017-03-30] MEDS ORDERED: LOSARTAN POTASSIUM 50 MG TABLET PO ONE (15:00)
[2017-03-30] MEDS: BUDESONIDE/FORMOTEROL 160-4.5 MCG 60 PUFF/6 GM MDI IH SCH (22:20)
[2017-03-31] MEDS: OXYCODONE-ACETAMINOPHEN 5-325 MG TABLET PO PRN ×5 (00:13→23:03)
[2017-03-31 06:21] LABS: ABSOLUTE BASOPHILS # (AUTO) 0.1 10^3/uL (0.0-0.2); ABSOLUTE EOSINOPHILS # (AUTO) 1.4 10^3/uL (0.0-0.6); ABSOLUTE LYMPHOCYTES (AUTO) 1.6 10^3/uL (0.5-4.7); ABSOLUTE MONOCYTES (AUTO) 0.4 10^3/uL (0.1-1.4); ABSOLUTE NEUT (AUTO) 5.2 10^3/uL (1.7-8.2); BASOPHILS % (AUTO) 0.6 % (0-2); EOSINOPHILS % (AUTO) 16.7 % (0-6); HEMATOCRIT 32.8 % (36.0-47.0); HEMOGLOBIN 10.9 g/dL (12.0-15.5); HGB HCT DIFFERENCE -0.1; LYMPHOCYTES % (AUTO) 18.2 % (13-45); MEAN CORPUSCULAR HEMOGLOBIN 27.1 pg (27.0-33.4); MEAN CORPUSCULAR HGB CONC 33.2 g/dL (32.0-36.0); MEAN CORPUSCULAR VOLUME 82 fl (80-97); MONOCYTES % (AUTO) 5.1 % (3-13); RED CELL DISTRIBUTION WIDTH 16.4 % (11.5-14.0); SEGMENTED NEUTROPHILS % (AUTO) 59.4 % (42-78); WHITE BLOOD COUNT 8.7 10^3/uL (4.0-10.5)
[2017-03-31 06:31] LABS: ALBUMIN 3.2 g/dL (3.5-5.0); ANION GAP 11 (5-19); BLOOD UREA NITROGEN 18 mg/dL (7-20); CARBON DIOXIDE 23 mmol/L (22-30); CHLORIDE 105 mmol/L (98-107); CREATININE RESULT 0.86 mg/dL (0.52-1.25); GLUCOSE 127 mg/dL (75-110); POTASSIUM 3.8 mmol/L (3.6-5.0); SODIUM 138.9 mmol/L (137-145); TOTAL PROTEIN 4.9 g/dL (6.3-8.2)
[2017-03-31 06:33] LABS: ALANINE AMINOTRANSFERASE 37 U/L (9-52); ALKALINE PHOSPHATASE 74 U/L (38-126); ASPARTATE AMINO TRANSFERASE 25 U/L (14-36); BILIRUBIN,DIRECT 0.4 mg/dL (0.0-0.4); BILIRUBIN,TOTAL 0.6 mg/dL (0.2-1.3); CALCIUM 8.3 mg/dL (8.4-10.2)
[2017-03-31] MEDS: ENOXAPARIN SODIUM INJ 40 MG/0.4 ML DISP.SYRIN SUBCUT SCH (09:21)
[2017-03-31] MEDS: ASPIRIN 81 MG TABLET, CHEWABLE PO SCH (09:22)
[2017-03-31] MEDS: ISOSORBIDE MONONITRATE 30 MG TAB.ER.24H PO SCH (09:22)
[2017-03-31] MEDS: LOSARTAN POTASSIUM 50 MG TABLET PO SCH (09:22)
[2017-03-31] MEDS: METOPROLOL TARTRATE 100 MG TABLET PO SCH (09:22)
[2017-03-31] MEDS: BUDESONIDE/FORMOTEROL 160-4.5 MCG 60 PUFF/6 GM MDI IH SCH ×2 (09:23→23:02)
[2017-03-31] MEDS: LEVOFLOXACIN 750 MG TABLET PO SCH (14:42)
--- NOTE | 2017-03-31 17:11 | PDOC PROGRESS REPORT ---
Subjective Progress Note for:: 03/31/17 Subjective:: Patient reported generalized pain. There is diffused crusted dry skin lesion. No fever or chills. No chest pain or difficulty with breathing., Remain on supplemental oxygen via nasal cannula. Physical Exam Vital Signs: Temp Pulse Resp BP Pulse Ox 98.6 F 48 L 22 H 153/96 H 99 03/31/17 03:40 03/31/17 14:50 03/31/17 03:40 03/31/17 03:40 03/31/17 03:40 Intake & Output 03/30/17 03/31/17 04/01/17 06:59 06:59 06:59 Intake Total 225 205 Balance 225 205 Weight 98.1 kg 95.4 kg General appearance: PRESENT: no acute distress, cooperative, obese Head exam: PRESENT: atraumatic, normocephalic Eye exam: PRESENT: conjunctiva pink, EOMI, PERRLA. ABSENT: scleral icterus Mouth exam: PRESENT: moist Respiratory exam: PRESENT: clear to auscultation julio, decreased breath sounds Cardiovascular exam: PRESENT: RRR, +S1, +S2. ABSENT: diastolic murmur, rubs, systolic murmur Vascular exam: PRESENT: normal capillary refill. ABSENT: pallor GI/Abdominal exam: PRESENT: normal bowel sounds, soft. ABSENT: distended, guarding, mass, organolmegaly, rebound, tenderness Neurological exam: PRESENT: alert, awake, oriented to person, oriented to place , oriented to time, oriented to situation, CN II-XII grossly intact. ABSENT: motor sensory deficit Psychiatric exam: PRESENT: appropriate affect, normal mood. ABSENT: homicidal ideation, suicidal ideation Skin exam: PRESENT: dry, rash, skin tears, warm Results Laboratory Results: 03/31/17 06:00 03/31/17 06:00 03/31/17 03/31/17 06:00 06:00 WBC 8.7 RBC 4.00 Hgb 10.9 L Hct 32.8 L MCV 82 MCH 27.1 MCHC 33.2 RDW 16.4 H Plt Count 289 Seg Neutrophils % 59.4 Lymphocytes % 18.2 Monocytes % 5.1 Eosinophils % 16.7 H Basophils % 0.6 Absolute Neutrophils 5.2 Absolute Lymphocytes 1.6 Absolute Monocytes 0.4 Absolute Eosinophils 1.4 H Absolute Basophils 0.1 Sodium 138.9 Potassium 3.8 Chloride 105 Carbon Dioxide 23 Anion Gap 11 BUN 18 Creatinine 0.86 Est GFR ( Amer) > 60 Est GFR (Non-Af Amer) > 60 Glucose 127 H Calcium 8.3 L Total Bilirubin 0.6 AST 25 ALT 37 Alkaline Phosphatase 74 Total Protein 4.9 L Albumin 3.2 L 03/29/17 03/29/17 03/29/17 12:45 12:45 18:45 Creatine Kinase 264 H 285 H CK-MB (CK-2) 3.37 Troponin I 0.026 NT-Pro-B Natriuret Pep 03/29/17 03/29/17 03/30/17 18:45 18:45 02:18 Creatine Kinase 302 H CK-MB (CK-2) 2.91 Troponin I 0.040 NT-Pro-B Natriuret Pep 3160 H 03/30/17 02:18 Creatine Kinase CK-MB (CK-2) 2.92 Troponin I 0.031 NT-Pro-B Natriuret Pep Impressions: Chest X-Ray 03/29/17 00:00 IMPRESSION: Old CABG. No acute findings Head CT 03/29/17 00:00 IMPRESSION: No acute findings EVIDENCE OF ACUTE STROKE: NO. Assessment & Plan - Diagnosis (1) Toxic encephalopathy Is this a current diagnosis for this admission?: Yes Plan: See covering attending physician orders. (2) Urinary tract infection Qualifiers: Urinary tract infection type: site unspecified Hematuria presence: without hematuria Qualified Code(s): N39.0 - Urinary tract infection, site not specified Is this a current diagnosis for this admission?: Yes Plan: See covering attending physician orders. (3) Acute exacerbation of chronic obstructive pulmonary disease (COPD) Is this a current diagnosis for this admission?: Yes Plan: See covering attending physician orders. (4) Diabetes mellitus type 2 in obese Is this a current diagnosis for this admission?: Yes Plan: See covering attending physician orders. - Time Time Spent with patient: 25-34 minutes Medications reviewed and adjusted accordingly: Yes Anticipated discharge: Home with Homehealth - Inpatient Certification Based on my medical assessment, after consideration of the patient's comorbidities, presenting symptoms, or acuity I expect that the services needed warrant INPATIENT care.: Yes I certify that my determination is in accordance with my understanding of Medicare's requirements for reasonable and necessary INPATIENT services [42 CFR 412.3e].: Yes Medical Necessity: Need Close Monitoring Due to Risk of Patient Decompensation, Need For IV Fluids, Need For Continuous Telemetry Monitoring, Need for IV Antibiotics, Risk of Complication if Not Cared For in Hospital 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
[2017-04-01] MEDS: OXYCODONE-ACETAMINOPHEN 5-325 MG TABLET PO PRN ×3 (03:02→18:46)
[2017-04-01 05:08] LABS: ABSOLUTE EOSINOPHILS # (AUTO) 1.6 10^3/uL (0.0-0.6); ABSOLUTE LYMPHOCYTES (AUTO) 1.6 10^3/uL (0.5-4.7); ABSOLUTE MONOCYTES (AUTO) 0.5 10^3/uL (0.1-1.4); ABSOLUTE NEUT (AUTO) 4.7 10^3/uL (1.7-8.2); BASOPHILS % (AUTO) 0.4 % (0-2); HEMATOCRIT 32.3 % (36.0-47.0); HEMOGLOBIN 10.7 g/dL (12.0-15.5); HGB HCT DIFFERENCE -0.2; MEAN CORPUSCULAR HEMOGLOBIN 26.9 pg (27.0-33.4); MEAN CORPUSCULAR VOLUME 81 fl (80-97); MONOCYTES % (AUTO) 5.9 % (3-13); RED BLOOD COUNT 3.98 10^6/uL (3.72-5.28); RED CELL DISTRIBUTION WIDTH 16.4 % (11.5-14.0); SEGMENTED NEUTROPHILS % (AUTO) 55.7 % (42-78); WHITE BLOOD COUNT 8.4 10^3/uL (4.0-10.5)
[2017-04-01 05:25] LABS: ALANINE AMINOTRANSFERASE 26 U/L (9-52); ALKALINE PHOSPHATASE 74 U/L (38-126); ANION GAP 11 (5-19); ASPARTATE AMINO TRANSFERASE 23 U/L (14-36); BILIRUBIN,DIRECT 0.3 mg/dL (0.0-0.4); BILIRUBIN,TOTAL 0.4 mg/dL (0.2-1.3); BLOOD UREA NITROGEN 19 mg/dL (7-20); CALCIUM 8.9 mg/dL (8.4-10.2); CARBON DIOXIDE 26 mmol/L (22-30); CHLORIDE 106 mmol/L (98-107); CREATININE RESULT 0.88 mg/dL (0.52-1.25); GLUCOSE 171 mg/dL (75-110); POTASSIUM 3.9 mmol/L (3.6-5.0); SODIUM 142.6 mmol/L (137-145); TOTAL PROTEIN 5.1 g/dL (6.3-8.2)
[2017-04-01] MEDS: ASPIRIN 81 MG TABLET, CHEWABLE PO SCH (09:08)
[2017-04-01] MEDS: ENOXAPARIN SODIUM INJ 40 MG/0.4 ML DISP.SYRIN SUBCUT SCH (09:08)
[2017-04-01] MEDS: LOSARTAN POTASSIUM 50 MG TABLET PO SCH (09:08)
[2017-04-01] MEDS: ISOSORBIDE MONONITRATE 30 MG TAB.ER.24H PO SCH (09:08)
[2017-04-01] MEDS: BUDESONIDE/FORMOTEROL 160-4.5 MCG 60 PUFF/6 GM MDI IH SCH ×2 (09:10→22:47)
[2017-04-01] MEDS: METOPROLOL TARTRATE 100 MG TABLET PO SCH (09:12)
--- NOTE | 2017-04-01 16:22 | PDOC PROGRESS REPORT ---
Subjective Progress Note for:: 04/01/17 Subjective:: No chest pain or difficulty with breathing. Patient reported generalized pain. No fever or chills.Remain on supplemental oxygen via nasal cannula. She was out of bed in recliner chair earlier today. Physical Exam Vital Signs: Temp Pulse Resp BP Pulse Ox 98.1 F 61 18 133/49 H 99 04/01/17 11:03 04/01/17 15:00 04/01/17 11:03 04/01/17 11:03 04/01/17 11:03 Intake & Output 03/31/17 04/01/17 04/02/17 06:59 06:59 06:59 Intake Total 205 353 Balance 205 353 Weight 95.4 kg 95.4 kg Physical Exam: General appearance: PRESENT: no acute distress, cooperative, obese Head exam: PRESENT: atraumatic, normocephalic Eye exam: PRESENT: conjunctiva pink, EOMI, PERRLA. ABSENT: scleral icterus Mouth exam: PRESENT: moist Respiratory exam: PRESENT: clear to auscultation julio, decreased breath sounds Cardiovascular exam: PRESENT: RRR, +S1, +S2. ABSENT: diastolic murmur, rubs, systolic murmur Vascular exam: PRESENT: normal capillary refill. ABSENT: pallor GI/Abdominal exam: PRESENT: normal bowel sounds, soft. ABSENT: distended, guarding, mass, organomegaly, rebound, tenderness Neurological exam: PRESENT: alert, awake, oriented to person, oriented to place , oriented to time, oriented to situation, CN II-XII grossly intact. ABSENT: motor sensory deficit Psychiatric exam: PRESENT: appropriate affect, normal mood. ABSENT: homicidal ideation, suicidal ideation Skin exam: PRESENT: dry, crusted, scab like diffuse rash, skin tears, warm Results Laboratory Results: 04/01/17 04:18 04/01/17 04:18 04/01/17 04/01/17 04:18 04:18 WBC 8.4 RBC 3.98 Hgb 10.7 L Hct 32.3 L MCV 81 MCH 26.9 L MCHC 33.0 RDW 16.4 H Plt Count 272 Seg Neutrophils % 55.7 Lymphocytes % 19.0 Monocytes % 5.9 Eosinophils % 19.0 H Basophils % 0.4 Absolute Neutrophils 4.7 Absolute Lymphocytes 1.6 Absolute Monocytes 0.5 Absolute Eosinophils 1.6 H Absolute Basophils 0.0 Sodium 142.6 Potassium 3.9 Chloride 106 Carbon Dioxide 26 Anion Gap 11 BUN 19 Creatinine 0.88 Est GFR ( Amer) > 60 Est GFR (Non-Af Amer) > 60 Glucose 171 H Calcium 8.9 Total Bilirubin 0.4 AST 23 ALT 26 Alkaline Phosphatase 74 Total Protein 5.1 L Albumin 3.0 L 03/29/17 03/29/17 03/29/17 12:45 12:45 18:45 Creatine Kinase 264 H 285 H CK-MB (CK-2) 3.37 Troponin I 0.026 NT-Pro-B Natriuret Pep 03/29/17 03/29/17 03/30/17 18:45 18:45 02:18 Creatine Kinase 302 H CK-MB (CK-2) 2.91 Troponin I 0.040 NT-Pro-B Natriuret Pep 3160 H 03/30/17 02:18 Creatine Kinase CK-MB (CK-2) 2.92 Troponin I 0.031 NT-Pro-B Natriuret Pep Impressions: Chest X-Ray 03/29/17 00:00 IMPRESSION: Old CABG. No acute findings Head CT 03/29/17 00:00 IMPRESSION: No acute findings EVIDENCE OF ACUTE STROKE: NO. Assessment & Plan - Diagnosis (1) Toxic encephalopathy Is this a current diagnosis for this admission?: Yes (2) Urinary tract infection Qualifiers: Urinary tract infection type: site unspecified Hematuria presence: without hematuria Qualified Code(s): N39.0 - Urinary tract infection, site not specified Is this a current diagnosis for this admission?: Yes (3) Acute exacerbation of chronic obstructive pulmonary disease (COPD) Is this a current diagnosis for this admission?: Yes (4) Diabetes mellitus type 2 in obese Is this a current diagnosis for this admission?: Yes (5) Pemphigus, unspecified Is this a current diagnosis for this admission?: Yes Plan: See covering attending physician orders. Follow up on biopsy findings. - Time Time Spent with patient: 25-34 minutes Medications reviewed and adjusted accordingly: Yes Anticipated discharge: SNF Within: Other - Inpatient Certification Based on my medical assessment, after consideration of the patient's comorbidities, presenting symptoms, or acuity I expect that the services needed warrant INPATIENT care.: Yes I certify that my determination is in accordance with my understanding of Medicare's requirements for reasonable and necessary INPATIENT services [42 CFR 412.3e].: Yes Medical Necessity: Need Close Monitoring Due to Risk of Patient Decompensation, Need For Continuous Telemetry Monitoring, Risk of Complication if Not Cared For in Hospital Post Hospital Care: D/C or Transfer Summary - Plan Summary Plan Summary: See covering attending physician orders.
[2017-04-02] MEDS: OXYCODONE-ACETAMINOPHEN 5-325 MG TABLET PO PRN ×4 (01:43→23:29)
[2017-04-02] MEDS: ENOXAPARIN SODIUM INJ 40 MG/0.4 ML DISP.SYRIN SUBCUT SCH (10:55)
[2017-04-02] MEDS: LOSARTAN POTASSIUM 50 MG TABLET PO SCH (10:55)
[2017-04-02] MEDS: BUDESONIDE/FORMOTEROL 160-4.5 MCG 60 PUFF/6 GM MDI IH SCH ×2 (10:55→21:48)
[2017-04-02] MEDS: ASPIRIN 81 MG TABLET, CHEWABLE PO SCH (10:56)
[2017-04-02] MEDS: ISOSORBIDE MONONITRATE 30 MG TAB.ER.24H PO SCH (10:56)
[2017-04-02] MEDS: METOPROLOL TARTRATE 100 MG TABLET PO SCH (10:56)
[2017-04-02] MEDS: LEVOFLOXACIN 750 MG TABLET PO SCH (15:07)
[2017-04-02] MEDS ORDERED: TUBERCULIN,PURIF.PROT.DERIV. 5 TU/0.1 ML TEST 1 ML VIAL ID ONE (16:00)
--- NOTE | 2017-04-02 18:40 | PDOC PROGRESS REPORT ---
Subjective Progress Note for:: 04/02/17 Subjective:: She was seen by the bedside, she is more alert and coherent today, the urinalysis and culture was never done, it was assumed that she has UTI based on symptoms, she was empirically treated with Levaquin antibiotic. She has severe paresthesia she endorses so much pain on very mild touch. The plan is to have her transferred to assisted living facility. She had tremendous pruritus associated with generalized rash, more consistent with hypersensitivity reaction most likely due to exposure to cat.PPD planted . Physical Exam Vital Signs: Temp Pulse Resp BP Pulse Ox 98.4 F 65 18 121/70 100 04/02/17 16:15 04/02/17 16:15 04/02/17 16:15 04/02/17 16:15 04/02/17 16:15 Intake & Output 04/01/17 04/02/17 04/03/17 06:59 06:59 06:59 Intake Total 353 755 Balance 353 755 Weight 95.4 kg 94.7 kg General appearance: PRESENT: no acute distress Eye exam: PRESENT: PERRLA Respiratory exam: PRESENT: rhonchi Cardiovascular exam: PRESENT: +S1, +S2 GI/Abdominal exam: PRESENT: soft Neurological exam: PRESENT: alert, CN II-XII grossly intact Skin exam: PRESENT: rash, skin tears Results Laboratory Results: 04/01/17 04:18 04/01/17 04:18 03/29/17 03/29/17 03/29/17 12:45 12:45 18:45 Creatine Kinase 264 H 285 H CK-MB (CK-2) 3.37 Troponin I 0.026 NT-Pro-B Natriuret Pep 03/29/17 03/29/17 03/30/17 18:45 18:45 02:18 Creatine Kinase 302 H CK-MB (CK-2) 2.91 Troponin I 0.040 NT-Pro-B Natriuret Pep 3160 H 03/30/17 02:18 Creatine Kinase CK-MB (CK-2) 2.92 Troponin I 0.031 NT-Pro-B Natriuret Pep Impressions: Chest X-Ray 03/29/17 00:00 IMPRESSION: Old CABG. No acute findings Head CT 03/29/17 00:00 IMPRESSION: No acute findings EVIDENCE OF ACUTE STROKE: NO. Assessment & Plan - Diagnosis (1) Toxic encephalopathy Is this a current diagnosis for this admission?: Yes (2) Urinary tract infection Qualifiers: Urinary tract infection type: site unspecified Hematuria presence: without hematuria Qualified Code(s): N39.0 - Urinary tract infection, site not specified Is this a current diagnosis for this admission?: Yes (3) Chronic obstructive lung disease Qualifiers: COPD type: COPD with acute exacerbation Qualified Code(s): J44.1 - Chronic obstructive pulmonary disease with (acute) exacerbation Is this a current diagnosis for this admission?: Yes (4) Chronic pain syndrome Is this a current diagnosis for this admission?: Yes (5) Coronary artery disease Qualifiers: Coronary Disease-Associated Artery/Lesion type: [place] artery [place] vs. 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
[2017-04-03] MEDS: OXYCODONE-ACETAMINOPHEN 5-325 MG TABLET PO PRN ×2 (08:38→20:14)
[2017-04-03] MEDS: ENOXAPARIN SODIUM INJ 40 MG/0.4 ML DISP.SYRIN SUBCUT SCH (10:30)
[2017-04-03] MEDS: LOSARTAN POTASSIUM 50 MG TABLET PO SCH (10:31)
[2017-04-03] MEDS: ISOSORBIDE MONONITRATE 30 MG TAB.ER.24H PO SCH (10:32)
[2017-04-03] MEDS: ASPIRIN 81 MG TABLET, CHEWABLE PO SCH (10:32)
[2017-04-03] MEDS: METOPROLOL TARTRATE 100 MG TABLET PO SCH (10:32)
[2017-04-03] MEDS: BUDESONIDE/FORMOTEROL 160-4.5 MCG 60 PUFF/6 GM MDI IH SCH ×2 (10:33→23:28)
--- NOTE | 2017-04-03 21:21 | PDOC PROGRESS REPORT ---
Subjective Progress Note for:: 04/03/17 Subjective:: Patient continues to have pain, she has spinal stenosis of the lumbar spine. PPD was planted, this would be read tomorrow. Physical Exam Vital Signs: Temp Pulse Resp BP Pulse Ox 97.7 F 62 22 H 116/73 100 04/03/17 15:51 04/03/17 15:51 04/03/17 15:51 04/03/17 15:51 04/03/17 15:51 Intake & Output 04/02/17 04/03/17 04/04/17 06:59 06:59 06:59 Intake Total 755 660 808 Output Total 500 Balance 755 160 808 Weight 94.7 kg General appearance: PRESENT: no acute distress Eye exam: PRESENT: PERRLA Respiratory exam: PRESENT: clear to auscultation jluio Cardiovascular exam: PRESENT: +S1, +S2 GI/Abdominal exam: PRESENT: soft Neurological exam: PRESENT: alert, CN II-XII grossly intact Results Laboratory Results: 04/01/17 04:18 04/01/17 04:18 03/29/17 14:30 Blood Blood Culture - Final NO GROWTH IN 5 DAYS 03/29/17 12:45 Blood Blood Culture - Final NO GROWTH IN 5 DAYS 03/29/17 03/29/17 03/29/17 12:45 12:45 18:45 Creatine Kinase 264 H 285 H CK-MB (CK-2) 3.37 Troponin I 0.026 NT-Pro-B Natriuret Pep 03/29/17 03/29/17 03/30/17 18:45 18:45 02:18 Creatine Kinase 302 H CK-MB (CK-2) 2.91 Troponin I 0.040 NT-Pro-B Natriuret Pep 3160 H 03/30/17 02:18 Creatine Kinase CK-MB (CK-2) 2.92 Troponin I 0.031 NT-Pro-B Natriuret Pep Impressions: Chest X-Ray 03/29/17 00:00 IMPRESSION: 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 No acute findings Head CT 03/29/17 00:00 IMPRESSION: No acute findings EVIDENCE OF ACUTE STROKE: NO. Assessment & Plan - Diagnosis (1) Toxic encephalopathy Is this a current diagnosis for this admission?: Yes (2) Urinary tract infection Qualifiers: Urinary tract infection type: site unspecified Hematuria presence: without hematuria Qualified Code(s): N39.0 - Urinary tract infection, site not specified Is this a current diagnosis for this admission?: Yes (3) Chronic obstructive lung disease Qualifiers: COPD type: COPD with acute exacerbation Qualified Code(s): J44.1 - Chronic obstructive pulmonary disease with (acute) exacerbation Is this a current diagnosis for this admission?: Yes (4) Chronic pain syndrome Is this a current diagnosis for this admission?: Yes (5) Coronary artery disease Qualifiers: Coronary Disease-Associated Artery/Lesion type: [place] artery [place] vs. 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
[2017-04-04] MEDS: OXYCODONE-ACETAMINOPHEN 5-325 MG TABLET PO PRN ×3 (00:29→22:33)
[2017-04-04] MEDS: LOSARTAN POTASSIUM 50 MG TABLET PO SCH (09:38)
[2017-04-04] MEDS: ENOXAPARIN SODIUM INJ 40 MG/0.4 ML DISP.SYRIN SUBCUT SCH (09:42)
[2017-04-04] MEDS: METOPROLOL TARTRATE 100 MG TABLET PO SCH (09:43)
[2017-04-04] MEDS: BUDESONIDE/FORMOTEROL 160-4.5 MCG 60 PUFF/6 GM MDI IH SCH ×2 (09:44→22:43)
[2017-04-04] MEDS: ISOSORBIDE MONONITRATE 30 MG TAB.ER.24H PO SCH (09:44)
[2017-04-04] MEDS: ASPIRIN 81 MG TABLET, CHEWABLE PO SCH (09:44)
[2017-04-04] MEDS ORDERED: FENTANYL 50 MCG/HR PATCH.TD72 TD ONE (15:30)
[2017-04-04] MEDS: LEVOFLOXACIN 750 MG TABLET PO SCH (16:05)
[2017-04-04] MEDS: PHARMACY COMMUNICATION ORDER MC SCH (16:16)
--- NOTE | 2017-04-04 17:29 | PDOC PROGRESS REPORT ---
Subjective Progress Note for:: 04/04/17 Subjective:: Patient continues to complain of pain, discharge planning is making arrangement for disposition the plan is for patient to go to assisted living facility at [facility]. She will be started back on fentanyl patch. Physical Exam Vital Signs: Temp Pulse Resp BP Pulse Ox 98.7 F 55 L 23 H 122/68 93 04/04/17 12:49 04/04/17 12:49 04/04/17 12:49 04/04/17 12:49 04/04/17 12:49 Intake & Output 04/03/17 04/04/17 04/05/17 06:59 06:59 06:59 Intake Total 660 1213 598 Output Total 500 300 Balance 160 1213 298 Weight 94.3 kg General appearance: PRESENT: no acute distress Eye exam: PRESENT: PERRLA Respiratory exam: PRESENT: clear to auscultation julio Cardiovascular exam: PRESENT: +S1, +S2 GI/Abdominal exam: PRESENT: soft Neurological exam: PRESENT: alert Results Laboratory Results: 04/01/17 04:18 04/01/17 04:18 03/29/17 14:30 Blood Blood Culture - Final NO GROWTH IN 5 DAYS 03/29/17 03/29/17 03/29/17 12:45 12:45 18:45 Creatine Kinase 264 H 285 H CK-MB (CK-2) 3.37 Troponin I 0.026 NT-Pro-B Natriuret Pep 03/29/17 03/29/17 03/30/17 18:45 18:45 02:18 Creatine Kinase 302 H CK-MB (CK-2) 2.91 Troponin I 0.040 NT-Pro-B Natriuret Pep 3160 H 03/30/17 02:18 Creatine Kinase CK-MB (CK-2) 2.92 Troponin I 0.031 NT-Pro-B Natriuret Pep Impressions: Chest X-Ray 03/29/17 00:00 IMPRESSION: Old CABG. No acute findings Head CT 03/29/17 00:00 IMPRESSION: No acute findings EVIDENCE OF ACUTE STROKE: NO. Assessment & Plan - Diagnosis (1) Toxic encephalopathy Is this a current diagnosis for this admission?: Yes (2) Urinary tract infection Qualifiers: Urinary tract infection type: site unspecified Hematuria presence: without hematuria Qualified Code(s): N39.0 - Urinary tract infection, site not specified Is this a current diagnosis for this admission?: Yes (3) Chronic obstructive lung disease Qualifiers: COPD type: COPD with acute exacerbation Qualified Code(s): J44.1 - Chronic obstructive pulmonary disease with (acute) exacerbation Is this a current diagnosis for this admission?: Yes (4) Chronic pain syndrome Is this a current diagnosis for this admission?: Yes (5) Coronary artery disease Qualifiers: Coronary Disease-Associated Artery/Lesion type: [place] artery [place] vs. 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
[2017-04-04 18:22] LABS: HEMATOCRIT 32.6 % (36.0-47.0); HEMOGLOBIN 10.8 g/dL (12.0-15.5); HGB HCT DIFFERENCE -0.2; MEAN CORPUSCULAR HEMOGLOBIN 27.3 pg (27.0-33.4); MEAN CORPUSCULAR HGB CONC 33.1 g/dL (32.0-36.0); MEAN CORPUSCULAR VOLUME 82 fl (80-97); RED BLOOD COUNT 3.96 10^6/uL (3.72-5.28); RED CELL DISTRIBUTION WIDTH 16.8 % (11.5-14.0); WHITE BLOOD COUNT 10.6 10^3/uL (4.0-10.5)
[2017-04-04 18:25] LABS: ALANINE AMINOTRANSFERASE 26 U/L (9-52); ALBUMIN 3.6 g/dL (3.5-5.0); ALKALINE PHOSPHATASE 79 U/L (38-126); ANION GAP 11 (5-19); ASPARTATE AMINO TRANSFERASE 23 U/L (14-36); BILIRUBIN,DIRECT 0.3 mg/dL (0.0-0.4); BILIRUBIN,TOTAL 0.4 mg/dL (0.2-1.3); BLOOD UREA NITROGEN 29 mg/dL (7-20); CALCIUM 9.2 mg/dL (8.4-10.2); CARBON DIOXIDE 26 mmol/L (22-30); CHLORIDE 105 mmol/L (98-107); CREATININE RESULT 0.96 mg/dL (0.52-1.25); GLUCOSE 145 mg/dL (75-110); POTASSIUM 4.4 mmol/L (3.6-5.0); SODIUM 142.2 mmol/L (137-145); TOTAL PROTEIN 6.1 g/dL (6.3-8.2)
[2017-04-04 18:47] LABS: BASOPHILS % (MANUAL) 0 % (0-2); EOSINOPHILS % (MANUAL) 11 % (0-6); LYMPHOCYTES % (MANUAL) 20 % (13-45); TOTAL CELLS COUNTED 100
[2017-04-04 18:50] LABS: ANISOCYTOSIS 1+; OVALOCYTES SLIGHT; SMUDGE CELLS PRESENT
[2017-04-05] MEDS ORDERED: DOXEPIN HCL 10 MG CAPSULE PO ONE (01:00)
[2017-04-05] MEDS ORDERED: DOXEPIN HCL 10 MG CAPSULE ONE (01:34)
[2017-04-05] MEDS: OXYCODONE-ACETAMINOPHEN 5-325 MG TABLET PO PRN ×2 (04:17→11:08)
[2017-04-05 06:10] LABS: ALANINE AMINOTRANSFERASE 34 U/L (9-52); ALBUMIN 3.5 g/dL (3.5-5.0); ALKALINE PHOSPHATASE 76 U/L (38-126); ANION GAP 12 (5-19); ASPARTATE AMINO TRANSFERASE 22 U/L (14-36); BILIRUBIN,DIRECT 0.4 mg/dL (0.0-0.4); BILIRUBIN,TOTAL 0.4 mg/dL (0.2-1.3); BLOOD UREA NITROGEN 28 mg/dL (7-20); CALCIUM 9.4 mg/dL (8.4-10.2); CARBON DIOXIDE 22 mmol/L (22-30); CHLORIDE 108 mmol/L (98-107); CREATININE RESULT 0.88 mg/dL (0.52-1.25); GLUCOSE 135 mg/dL (75-110); POTASSIUM 4.4 mmol/L (3.6-5.0); SODIUM 141.6 mmol/L (137-145); TOTAL PROTEIN 5.9 g/dL (6.3-8.2)
[2017-04-05 06:12] LABS: ABSOLUTE LYMPHOCYTES (AUTO) 1.8 10^3/uL (0.5-4.7); ABSOLUTE MONOCYTES (AUTO) 0.4 10^3/uL (0.1-1.4); ABSOLUTE NEUT (AUTO) 5.2 10^3/uL (1.7-8.2); BASOPHILS % (AUTO) 0.4 % (0-2); EOSINOPHILS % (AUTO) 21.5 % (0-6); HEMOGLOBIN 10.4 g/dL (12.0-15.5); HGB HCT DIFFERENCE -0.8; LYMPHOCYTES % (AUTO) 19.1 % (13-45); MEAN CORPUSCULAR HEMOGLOBIN 26.8 pg (27.0-33.4); MEAN CORPUSCULAR HGB CONC 32.5 g/dL (32.0-36.0); MEAN CORPUSCULAR VOLUME 83 fl (80-97); MONOCYTES % (AUTO) 4.7 % (3-13); RED BLOOD COUNT 3.88 10^6/uL (3.72-5.28); RED CELL DISTRIBUTION WIDTH 16.9 % (11.5-14.0); SEGMENTED NEUTROPHILS % (AUTO) 54.3 % (42-78); WHITE BLOOD COUNT 9.5 10^3/uL (4.0-10.5)
[2017-04-05 06:23] LABS: APPEARANCE,URINE SLIGHTLY-CLOUDY; BILIRUBIN,URINE NEGATIVE (NEGATIVE); GLUCOSE, URINE NEGATIVE (NEGATIVE); KETONES,URINE NEGATIVE (NEGATIVE); LEUKOCYTE ESTERASE,URINE TRACE (NEGATIVE); NITRITE,URINE NEGATIVE (NEGATIVE); PROTEIN,URINE NEGATIVE (NEGATIVE); URINE SPECIFIC GRAVITY 1.002; UROBILINOGEN,URINE NEGATIVE mg/dL (<2.0)
[2017-04-05] MEDS: LOSARTAN POTASSIUM 50 MG TABLET PO SCH (11:08)
[2017-04-05] MEDS: ASPIRIN 81 MG TABLET, CHEWABLE PO SCH (11:09)
[2017-04-05] MEDS: METOPROLOL TARTRATE 100 MG TABLET PO SCH (11:09)
[2017-04-05] MEDS: ISOSORBIDE MONONITRATE 30 MG TAB.ER.24H PO SCH (11:09)
[2017-04-05] MEDS: ENOXAPARIN SODIUM INJ 40 MG/0.4 ML DISP.SYRIN SUBCUT SCH (11:10)
[2017-04-05] MEDS: BUDESONIDE/FORMOTEROL 160-4.5 MCG 60 PUFF/6 GM MDI IH SCH ×2 (11:11→22:00)
[2017-04-05] MEDS: PHARMACY COMMUNICATION ORDER MC SCH (17:30)
--- NOTE | 2017-04-05 20:54 | PDOC PROGRESS REPORT ---
Subjective Progress Note for:: 04/05/17 Subjective:: Patient was seen by the bedside she is insistent on going back to her apartment , jenaro wants her transferred to assisted living facility both I was made to understand by the nurses that the assisted living facility declined to offer her a place. She was seen in her room she is very upset with the idea that she is going to lose her freedom and stay in a facility she prefers to stay in her residence , she complains of pain though she is on fentanyl patch and p.o. opioid therapy. Physical Exam Vital Signs: Temp Pulse Resp BP Pulse Ox 98.8 F 62 20 134/36 H 96 04/05/17 15:54 04/05/17 15:54 04/05/17 15:54 04/05/17 15:54 04/05/17 15:54 Intake & Output 04/04/17 04/05/17 04/06/17 06:59 06:59 06:59 Intake Total 1213 1929 1125 Output Total 300 Balance 1213 1629 1125 Weight 94.3 kg General appearance: PRESENT: no acute distress Head exam: PRESENT: atraumatic, normocephalic Eye exam: PRESENT: PERRLA Ear exam: PRESENT: normal external ear exam Mouth exam: PRESENT: moist, tongue midline Neck exam: PRESENT: full ROM Respiratory exam: PRESENT: clear to auscultation julio Cardiovascular exam: PRESENT: +S1, +S2 Pulses: PRESENT: normal [place] pedis pul, +2 pedal pulses bilateral Vascular exam: PRESENT: normal capillary refill GI/Abdominal exam: PRESENT: soft Rectal exam: PRESENT: deferred Neurological exam: PRESENT: alert, CN II-XII grossly intact Psychiatric exam: PRESENT: appropriate affect, normal mood Skin exam: PRESENT: dry, intact, warm Results Laboratory Results: 04/05/17 04:31 04/05/17 04:31 04/05/17 04/05/17 04/05/17 04:02 04:31 04:31 WBC 9.5 RBC 3.88 Hgb 10.4 L Hct 32.0 L MCV 83 MCH 26.8 L MCHC 32.5 RDW 16.9 H Plt Count 259 Seg Neutrophils % 54.3 Lymphocytes % 19.1 Monocytes % 4.7 Eosinophils % 21.5 H Basophils % 0.4 Absolute Neutrophils 5.2 Absolute Lymphocytes 1.8 Absolute Monocytes 0.4 Absolute Eosinophils 2.0 H Absolute Basophils 0.0 Sodium 141.6 Potassium 4.4 Chloride 108 H Carbon Dioxide 22 Anion Gap 12 BUN 28 H Creatinine 0.88 Est GFR ( Amer) > 60 Est GFR (Non-Af Amer) > 60 Glucose 135 H Calcium 9.4 Total Bilirubin 0.4 AST 22 ALT 34 Alkaline Phosphatase 76 Total Protein 5.9 L Albumin 3.5 Urine Color COLORLESS Urine Appearance SLIGHTLY-CLOUDY Urine pH 5.0 Ur Specific [place] 1.002 Urine Protein NEGATIVE Urine Glucose (UA) NEGATIVE Urine Ketones NEGATIVE Urine Blood SMALL H Urine Nitrite NEGATIVE Ur Leukocyte Esterase TRACE H Urine WBC (Auto) 9 Urine RBC (Auto) 1 03/29/17 03/29/17 03/29/17 12:45 12:45 18:45 Creatine Kinase 264 H 285 H CK-MB (CK-2) 3.37 Troponin I 0.026 NT-Pro-B Natriuret Pep 03/29/17 03/29/17 03/30/17 18:45 18:45 02:18 Creatine Kinase 302 H CK-MB (CK-2) 2.91 Troponin I 0.040 NT-Pro-B Natriuret Pep 3160 H 03/30/17 02:18 Creatine Kinase CK-MB (CK-2) 2.92 Troponin I 0.031 NT-Pro-B Natriuret Pep Impressions: Chest X-Ray 03/29/17 00:00 IMPRESSION: 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 No acute findings Head CT 03/29/17 00:00 IMPRESSION: No acute findings EVIDENCE OF ACUTE STROKE: NO. Assessment & Plan - Diagnosis (1) Toxic encephalopathy Is this a current diagnosis for this admission?: Yes (2) Urinary tract infection Qualifiers: Urinary tract infection type: site unspecified Hematuria presence: without hematuria Qualified Code(s): N39.0 - Urinary tract infection, site not specified Is this a current diagnosis for this admission?: Yes (3) Chronic obstructive lung disease Qualifiers: COPD type: COPD with acute exacerbation Qualified Code(s): J44.1 - Chronic obstructive pulmonary disease with (acute) exacerbation Is this a current diagnosis for this admission?: Yes (4) Chronic pain syndrome Is this a current diagnosis for this admission?: Yes (5) Coronary artery disease Qualifiers: Coronary Disease-Associated Artery/Lesion type: [place] artery [place] vs. 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
[2017-04-05] MEDS: DOXEPIN HCL 10 MG CAPSULE PO SCH (22:00)
[2017-04-06] MEDS: BUDESONIDE/FORMOTEROL 160-4.5 MCG 60 PUFF/6 GM MDI IH SCH ×2 (09:13→22:42)
[2017-04-06] MEDS: ASPIRIN 81 MG TABLET, CHEWABLE PO SCH (09:13)
[2017-04-06] MEDS: ISOSORBIDE MONONITRATE 30 MG TAB.ER.24H PO SCH (09:16)
[2017-04-06] MEDS: LOSARTAN POTASSIUM 50 MG TABLET PO SCH (09:16)
[2017-04-06] MEDS: METOPROLOL TARTRATE 100 MG TABLET PO SCH (09:16)
[2017-04-06] MEDS: ENOXAPARIN SODIUM INJ 40 MG/0.4 ML DISP.SYRIN SUBCUT SCH (09:17)
[2017-04-06] MEDS: LEVOFLOXACIN 750 MG TABLET PO SCH (14:53)
[2017-04-06] MEDS: OXYCODONE-ACETAMINOPHEN 5-325 MG TABLET PO PRN ×2 (14:53→22:44)
[2017-04-06] MEDS: DOXEPIN HCL 10 MG CAPSULE PO SCH (22:42)
[2017-04-07] MEDS: OXYCODONE-ACETAMINOPHEN 5-325 MG TABLET PO PRN (05:28)
--- NOTE | 2017-04-07 09:17 | PDOC PROGRESS REPORT ---
Subjective Progress Note for:: 04/06/17 Subjective:: She insisted that she wants to go to her own apartment she refused to go to any [facility] home, the nurse spoke to the patient's daughter about patient's preference to go home Physical Exam Vital Signs: Temp Pulse Resp BP Pulse Ox 98.4 F 69 17 156/47 H 90 L 04/07/17 07:31 04/07/17 07:31 04/07/17 07:31 04/07/17 07:31 04/07/17 07:31 Intake & Output 04/06/17 04/07/17 04/08/17 06:59 06:59 06:59 Intake Total 1780 2180 Output Total 1000 Balance 1780 1180 Weight 95 kg 95.3 kg General appearance: PRESENT: no acute distress Eye exam: PRESENT: PERRLA Respiratory exam: PRESENT: clear to auscultation julio Cardiovascular exam: PRESENT: +S1, +S2 GI/Abdominal exam: PRESENT: soft Neurological exam: PRESENT: alert Results Laboratory Results: 04/05/17 04:31 04/05/17 04:31 04/05/17 04:02 Clean Catch Midstream Urine Culture - Final Enterococcus Faecalis(Group D) Escherichia Coli 03/29/17 03/29/17 03/29/17 12:45 12:45 18:45 Creatine Kinase 264 H 285 H CK-MB (CK-2) 3.37 Troponin I 0.026 NT-Pro-B Natriuret Pep 03/29/17 03/29/17 03/30/17 18:45 18:45 02:18 Creatine Kinase 302 H CK-MB (CK-2) 2.91 Troponin I 0.040 NT-Pro-B Natriuret Pep 3160 H 03/30/17 02:18 Creatine Kinase CK-MB (CK-2) 2.92 Troponin I 0.031 NT-Pro-B Natriuret Pep Impressions: Chest X-Ray 03/29/17 00:00 IMPRESSION: 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 No acute findings Head CT 03/29/17 00:00 IMPRESSION: No acute findings EVIDENCE OF ACUTE STROKE: NO. Assessment & Plan - Diagnosis (1) Toxic encephalopathy Is this a current diagnosis for this admission?: Yes (2) Urinary tract infection Qualifiers: Urinary tract infection type: site unspecified Hematuria presence: without hematuria Qualified Code(s): N39.0 - Urinary tract infection, site not specified Is this a current diagnosis for this admission?: Yes (3) Chronic obstructive lung disease Qualifiers: COPD type: COPD with acute exacerbation Qualified Code(s): J44.1 - Chronic obstructive pulmonary disease with (acute) exacerbation Is this a current diagnosis for this admission?: Yes (4) Chronic pain syndrome Is this a current diagnosis for this admission?: Yes (5) Coronary artery disease Qualifiers: Coronary Disease-Associated Artery/Lesion type: [place] artery [place] vs. 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
[2017-04-07] MEDS ORDERED: FENTANYL 50 MCG/HR PATCH.TD72 TD SCH (10:00)
[2017-04-07] MEDS: ISOSORBIDE MONONITRATE 30 MG TAB.ER.24H PO SCH (10:23)
[2017-04-07] MEDS: ASPIRIN 81 MG TABLET, CHEWABLE PO SCH (10:23)
[2017-04-07] MEDS: METOPROLOL TARTRATE 100 MG TABLET PO SCH (10:23)
[2017-04-07] MEDS: ENOXAPARIN SODIUM INJ 40 MG/0.4 ML DISP.SYRIN SUBCUT SCH (10:23)
[2017-04-07] MEDS: LOSARTAN POTASSIUM 50 MG TABLET PO SCH (10:23)
[2017-04-07] MEDS: BUDESONIDE/FORMOTEROL 160-4.5 MCG 60 PUFF/6 GM MDI IH SCH (10:23)
--- NOTE | 2017-04-07 11:31 | PDOC DISCHARGE SUMMARY ---
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 Is this a current diagnosis for this admission?: Yes (7) Morbid obesity due to excess calories Is this a current diagnosis for this admission?: Yes (8) Opioid dependence Is this a current diagnosis for this admission?: Yes (9) Dermatitis Is this a current diagnosis for this admission?: Yes - Additional Information Home Medications: Albuterol Sulfate [Albuterol Sulfate 2.5mg/3 mL] 1 vial NEB Q6HP PRN 03/30/17 Albuterol Sulfate [Proair HFA Inhalation Aerosol 8.5 gm MDI] 2 puff IH Q4HP PRN 03/30/17 Aspirin [Aspirin 81 mg Chewable Tablet] 81 mg PO DAILY 03/30/17 Budesonide/Formoterol Fumarate [Symbicort HFA 160-4.5 mcg Inhaler 6 gm] 2 puff IH Q12 03/30/17 Ergocalciferol (Vitamin D2) [Drisdol 50,000 unit (1.25MG) Capsule] 50,000 unit PO HURST@1000 03/30/17 Isosorbide Mononitrate [Imdur 30 mg Tablet.er] 30 mg PO DAILY 03/30/17 Linagliptin/Metformin HCl [Jentadueto 2.5 mg-1000 mg Tab] 1 tab PO BID 03/30/17 Losartan Potassium [Cozaar 100 mg Tablet] 100 mg PO DAILY 03/30/17 Metoprolol Tartrate [Lopressor 100 mg Tablet] 100 mg PO DAILY 03/30/17 Mirabegron [Myrbetriq] 25 mg PO DAILY 03/30/17 Ondansetron HCl [Zofran 4 mg Tablet] 4 mg PO TIDP PRN 03/30/17 Pramipexole Di-HCl [Pramipexole Dihydrochloride] 0.25 mg PO DAILY 03/30/17 Pravastatin Sodium [Pravachol] 40 mg PO QHS 03/30/17 Tiotropium [place] [Spiriva Respimat] 2 puff IH DAILY 03/30/17 Clobetasol Propionate 60 gm TP DAILY #2 gel..gm. 04/07/17 Doxepin HCl [Sinequan 10 mg Capsule] 10 mg PO DAILY #90 capsule 04/07/17 Duloxetine HCl [Cymbalta] 60 mg PO BID #180 capsule.dr 04/07/17 Fentanyl [Duragesic 50 Mcg/Hr Transdermal Patch] 1 patch TOP Q72H #10 patch.td72 04/07/17 Oxycodone HCl/Acetaminophen [Percocet 10-325 mg Tablet] 1 tab PO Q6 #120 tablet 04/07/17 History of Present Illness History of Present Illness: SINAN MONTGOMERY is a 86 year old female,She has multiple comorbid conditions including COPD, coronary artery disease, she came to the office this morning with the daughter for evaluation of hallucination, the daughter was concerned about this patient because she was hallucinating seeing things that no one else was seeing ,talking out of her head. She has severe skin rash that is presently not diagnosed she saw the animal skinner 2 days ago and a skin biopsy was taken, the rash is very pruritic and patient apparently was prescribed Benadryl by the baggage screener. When she came to the office this morning she was very confused and disoriented to time place and person ,with tremors, agitated and ataxic, patient daughter said that she has been taking Benadryl very frequently, she was admitted for evaluation from the office CT head was negative the intrahepatic syndrome could be related to the medication, Benadryl that she was taking very frequently.She has been taking Benadryl every 4 hours almost on a scheduled for pruritus, that could be the etiology of the encephalopathy. Hospital Course Hospital Course: Patient was admitted for the evaluation of hallucination, visual type confusion. A CAT scan of the head was negative for any acute pathology, she took excessive doses of Benadryl for itching, it was felt that the encephalopathy was from the Benadryl. This was held ,patient's symptoms improved she also had UTI, she was treated empirically with antibiotic Levaquin. Dispositional was an issue on this admission patient's daughter wants patient to be transfer to a care home home or preferably assisted living facility but patient refused to be transferred to any care home home or assisted living facility she prefers to stay in her own apartment. Cognitively she is okay to make that decision and she insisted on staying in her own apartment she has diffuse rash associated with itching, she was given clobetasol cream topically. Physical Exam Vital Signs: Temp Pulse Resp BP Pulse Ox 98.4 F 69 17 156/47 H 90 L 04/07/17 07:31 04/07/17 07:31 04/07/17 07:31 04/07/17 07:31 04/07/17 07:31 Intake & Output 04/06/17 04/07/17 04/08/17 06:59 06:59 06:59 Intake Total 1780 2180 Output Total 1000 Balance 1780 1180 Weight 95 kg 95.3 kg General appearance: PRESENT: no acute distress, well-developed, well-nourished Head exam: PRESENT: atraumatic, normocephalic Eye exam: PRESENT: conjunctiva pink, EOMI, PERRLA Ear exam: PRESENT: normal external ear exam Mouth exam: PRESENT: moist, tongue midline Neck exam: PRESENT: full ROM Respiratory exam: PRESENT: clear to auscultation julio Cardiovascular exam: PRESENT: RRR, +S1, +S2 Vascular exam: PRESENT: normal capillary refill GI/Abdominal exam: PRESENT: normal bowel sounds, soft Rectal exam: PRESENT: deferred Neurological exam: PRESENT: alert, awake, oriented to person, oriented to place , oriented to time, oriented to situation, CN II-XII grossly intact Psychiatric exam: PRESENT: appropriate affect, normal mood Skin exam: PRESENT: dry, intact, warm Results Laboratory Results: 04/05/17 04:31 04/05/17 04:31 04/05/17 04:02 Clean Catch Midstream Urine Culture - Final Enterococcus Faecalis(Group D) Escherichia Coli 03/29/17 03/29/17 03/29/17 12:45 12:45 18:45 Creatine Kinase 264 H 285 H CK-MB (CK-2) 3.37 Troponin I 0.026 NT-Pro-B Natriuret Pep 03/29/17 03/29/17 03/30/17 18:45 18:45 02:18 Creatine Kinase 302 H CK-MB (CK-2) 2.91 Troponin I 0.040 NT-Pro-B Natriuret Pep 3160 H 03/30/17 02:18 Creatine Kinase CK-MB (CK-2) 2.92 Troponin I 0.031 NT-Pro-B Natriuret Pep Impressions: Chest X-Ray 03/29/17 00:00 IMPRESSION: 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 No acute findings Head CT 03/29/17 00:00 IMPRESSION: No acute findings EVIDENCE OF ACUTE STROKE: NO.
[2017-04-07 12:42] VITALS: BP 114/68
== END 2017-04-07 13:12 | disposition home health service (06) | DRG 917 ==
LOC: 3N 10:03 → INTOOBSV 10:03 → OBSVTOIN 04-01 18:00
PROVIDERS: ADMIT Internal Medicine; ATTEND Internal Medicine
DX: T45.0X1A Poisoning by antiallergic and antiemetic drugs, accidental (unintentional), initial encounter (principal); G92 Toxic encephalopathy; J44.1 Chronic obstructive pulmonary disease with (acute) exacerbation; N39.0 Urinary tract infection, site not specified; F11.20 Opioid dependence, uncomplicated; I87.323 Chronic venous hypertension (idiopathic) with inflammation of bilateral lower extremity; I25.10 Atherosclerotic heart disease of native coronary artery without angina pectoris; L29.9 Pruritus, unspecified; E78.5 Hyperlipidemia, unspecified; I10 Essential (primary) hypertension; E11.9 Type 2 diabetes mellitus without complications; G89.4 Chronic pain syndrome; E66.01 Morbid (severe) obesity due to excess calories; B95.2 Enterococcus as the cause of diseases classified elsewhere; B96.20 Unspecified Escherichia coli [E. coli] as the cause of diseases classified elsewhere; F31.9 Bipolar disorder, unspecified; M19.90 Unspecified osteoarthritis, unspecified site; E03.9 Hypothyroidism, unspecified; I25.2 Old myocardial infarction; Z85.3 Personal history of malignant neoplasm of breast; Z95.1 Presence of aortocoronary bypass graft; Z90.49 Acquired absence of other specified parts of digestive tract; Z90.710 Acquired absence of both cervix and uterus; Z96.641 Presence of right artificial hip joint; Z96.653 Presence of artificial knee joint, bilateral; Z68.38 Body mass index [BMI] 38.0-38.9, adult; Z79.82 Long term (current) use of aspirin; Z90.11 Acquired absence of right breast and nipple; Z87.891 Personal history of nicotine dependence; Z82.49 Family history of ischemic heart disease and other diseases of the circulatory system; Z86.73 Personal history of transient ischemic attack (TIA), and cerebral infarction without residual deficits; Z83.3 Family history of diabetes mellitus; Z88.6 Allergy status to analgesic agent; Z88.8 Allergy status to other drugs, medicaments and biological substances; Z88.2 Allergy status to sulfonamides; Z88.3 Allergy status to other anti-infective agents
CPT/HCPCS: 36415; 70450; 71020; 80048; 80053; 80061; 80076; 81001; 82140; 82150; 82550; 82553; 82803; 82962; 83036; 83690; 83735; 83880; 84100; 84439; 84443; 84484; 85025; 85027; 85610; 85730; 87040; 87086; 87088; 87186; 93005; 93010; J1650; J3490

== ENCOUNTER 2017-05-14 09:10 | Emergency (ER) | payer MEDICARE, MEDICAID ==
--- NOTE | 2017-05-14 10:16 | RADIOLOGY REPORT (SQ) ---
EXAM DESCRIPTION: HIP LEFT AP/LATERAL COMPLETED DATE/TIME: 05/14/2017 9:46 am REASON FOR STUDY: fall hip pain COMPARISON: CT abdomen pelvis 02/13/2017 Left hip films 03/20/2017, 11/04/2013, 09/21/2013 NUMBER OF VIEWS: Two views. TECHNIQUE: AP pelvis and additional frog-leg view of the left hip. LIMITATIONS: None. FINDINGS: MINERALIZATION: Osteopenic LEFT HIP: Left total hip replacement with acetabular component. No lucency around the hardware worri some for loosening. RIGHT HIP: Right total hip replacement with acetabular component. No lucency around the hardware wor risome for loosening cyst. Very bulky heterotopic ossification along the right greater and lesser tr ochanters. PUBIS AND ISCHIUM: No fracture. PELVIS: No fracture. SACRUM: No fracture or dislocation. No worrisome bone lesions. LOWER LUMBAR SPINE: Advanced degenerative disc changes at L4-5 SOFT TISSUES: Arterial vascular calcifications OTHER: No other significant finding. IMPRESSION: Old left hip replacement in good alignment. No lucency around the hardware worrisome fo r loosening. 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
--- NOTE | 2017-05-14 10:21 | ER Document Report ---
ED General - General Chief Complaint: Hip Injury Stated Complaint: FALL HIP PAIN Time Seen by Provider: 05/14/17 09:14 Mode of Arrival: Ambulatory Information source: Patient Notes: 87-year-old female presents after mechanical fall complaining of bilateral hip pain. Patient notes that at baseline she has difficulty with ambulation he uses her wheelchair. Patient denies any numbness weakness denies any back pain TRAVEL OUTSIDE OF THE [place] IN LAST 30 DAYS: No - HPI Onset: Just prior to arrival Onset/Duration: Sudden Quality of pain: Achy Severity: Mild Pain Level: 1 Associated symptoms: Body/muscle aches Exacerbated by: Denies Relieved by: Denies Similar symptoms previously: Yes Recently seen / treated by doctor: Yes - Related Data Allergies/Adverse Reactions: codeine [Codeine] Allergy (Severe, Verified 04/28/17 17:07) headache bacitracin [From Neosporin ([id number])] Allergy (Verified 04/28/17 17:07) gabapentin Allergy (Verified 04/28/17 17:07) neomycin [From Neosporin ([id number])] Allergy (Verified 04/28/17 17:07) polymyxin B [From Neosporin ([id number])] Allergy (Verified 04/28/17 17:07) pregabalin [From Lyrica] Allergy (Verified 04/28/17 17:07) Hallucinations Sulfa (Sulfonamide Antibiotics) Allergy (Verified 04/28/17 17:07) itching Home Medications: Current Home Medications Linagliptin/Metformin HCl [Jentadueto 2.5 mg-1000 mg Tab] 1 each PO BID [History] Past Medical History - Social History Smoking Status: Former Smoker Cigarette use (# per day): No Chew tobacco use (# tins/day): No Smoking Education Provided: No Frequency of alcohol use: None Drug Abuse: None Family History: CAD, CVA, DM, Hyperlipidemia, Hypertension Patient has suicidal ideation: No Patient has homicidal ideation: No - Past Medical History Cardiac Medical History: Reports: Hx Congestive Heart Failure, Hx Coronary Artery Disease, Hx Heart Attack, Hx Hypercholesterolemia, Hx Hypertension Pulmonary Medical History: Reports: Hx Asthma, Hx Bronchitis, Hx COPD, Hx Pneumonia, Hx Sleep Apnea Neurological Medical History: Denies: Hx Cerebrovascular Accident Endocrine Medical History: Reports: Hx Diabetes Mellitus Type 2, Hx Hyperthyroidism, Hx Hypothyroidism. Denies: Hx Graves' Disease Renal/ Medical History: Reports: Hx Kidney Stones. Denies: Hx Ovarian Cysts, Hx Peritoneal Dialysis, Hx Pelvic Inflammatory Disease Malignancy Medical History: Reports: Hx Breast Cancer GI Medical History: Reports: Hx Gastroesophageal Reflux Disease. Denies: Hx Irritable Bowel, Hx Liver Failure, Hx Pancreatitis, Hx Ulcer Musculoskeltal Medical History: Reports Hx Arthritis, Denies Hx Fibromyalgia, Denies Hx Multiple Sclerosis, Denies Hx Muscular Dystrophy, Reports Hx Musculoskeletal Deformity, Reports Hx Musculoskeletal Trauma Psychiatric Medical History: Reports: Hx Bipolar Disorder, Hx Depression Denies: Hx Schizophrenia Traumatic Medical History: Reports: Hx Fractures - right leg(small break) Infectious Medical History: Past Surgical History: Reports: Hx Adenoidectomy, Hx Appendectomy, Hx Cardiac Catheterization, Hx Cardiac Surgery - Double Bypass, Hx Cholecystectomy, Hx Coronary Artery Bypass Graft - 1996, Hx Hysterectomy, Hx Mastectomy - rt 1994, Hx Orthopedic Surgery - Right Hip replacement, bilateral knee replacements, Hx Tonsillectomy. Denies: Hx Bowel Surgery, Hx Tubal Ligation - Immunizations Immunizations up to date: Yes Hx Diphtheria, Pertussis, Tetanus Vaccination: Yes Hx Pneumococcal Vaccination: 09/07/11 Review of Systems - Review of Systems Notes: REVIEW OF SYSTEMS: CONSTITUTIONAL : Denies fever, chills, or sweats. Denies recent illness. EENT: Denies eye, ear, throat, or mouth pain or symptoms. Denies nasal or sinus congestion or discharge. Denies throat, tongue, or mouth swelling or difficulty swallowing. CARDIOVASCULAR: Denies chest pain. Denies palpitations or racing or irregular heart beat. Denies ankle edema. RESPIRATORY: Denies cough, cold, or chest congestion. Denies shortness of breath, difficulty breathing, or wheezing. GASTROINTESTINAL: Denies abdominal pain or distention. Denies nausea, vomiting , or diarrhea. Denies blood in vomitus, stools, or per rectum. Denies black, tarry stools. Denies constipation. GENITOURINARY: Denies difficulty urinating, painful urination, burning, frequency, blood in urine, or discharge. FEMALE GENITOURINARY: Denies vaginal bleeding, heavy or abnormal periods, irregular periods. Denies vaginal discharge or odor. MUSCULOSKELETAL: Admits to bilateral hip pain SKIN: Denies rash, lesions or sores. HEMATOLOGIC : Denies easy bruising or bleeding. LYMPHATIC: Denies swollen, enlarged glands. NEUROLOGICAL: Denies confusion or altered mental status. Denies passing out or loss of consciousness. Denies dizziness or lightheadedness. Denies headache. Denies weakness or paralysis or loss of use of either side. Denies problems with gait or speech. Denies sensory loss, numbness, or tingling. Denies seizures. PSYCHIATRIC: Denies anxiety or stress. Denies depression, suicidal ideation, or homicidal ideation. ALL OTHER SYSTEMS REVIEWED AND NEGATIVE. PHYSICAL EXAMINATION: GENERAL: Well-appearing, well-nourished and in no acute distress. HEAD: Atraumatic, normocephalic. EYES: Pupils equal round and reactive to light, extraocular movements intact, conjunctiva are normal. ENT: Nares patent, oropharynx clear without exudates. Moist mucous membranes. NECK: Normal range of motion, supple without lymphadenopathy LUNGS: Breath sounds clear to auscultation bilaterally and equal. No wheezes rales or rhonchi. HEART: Regular rate and rhythm without murmurs ABDOMEN: Soft, nontender, nondistended abdomen. No guarding, no rebound. No masses appreciated. Female : deferred Musculoskeletal: Normal range of motion, no pitting or edema. No cyanosis. NEUROLOGICAL: Cranial nerves grossly intact. Normal speech, normal gait. Normal sensory, motor exams PSYCH: Normal mood, normal affect. SKIN: Chronic venous stasis of the bilateral lower extremity Dictation was performed using [employer] voice recognition software Physical Exam - Vital signs Vitals: Pulse Resp 97 18 05/14/17 09:36 05/14/17 09:36 Course - Re-evaluation Re-evalutation: 05/14/17 17:13 I did speak with the patient's primary care physician and I did explain my concerns for cellulitis, the legs are bilaterally warm at the shins however there is no drainage at this time, I was initially going to start the patient on antibiotics but after speaking with the primary care physician he notes that this happens often and that he does not believe he is cellulitic but rather dermatitis from venous stasis. Therefore at his request I will not give antibiotics and will have him follow-up in the office otherwise x-ray was negative patient is able to ambulate and I have requested that physical therapy be ordered for her After performing a Medical Screening Examination, I estimate there is LOW risk for OPEN FRACTURE, COMPARTMENT SYNDROME, TENDON RUPTURE, ACUTE NEUROVASCULAR INJURY, or RETAINED FOREIGN BODY, thus I consider the discharge disposition reasonable. Also, there is no evidence or peritonitis, sepsis, or toxicity. I have reevaluated this patient multiple times and no significant life threatening changes are noted. The patient and I have discussed the diagnosis and risks, and we agree with discharging home with close follow-up with the understanding that symptoms and presentations can change. We also discussed returning to the Emergency Department immediately if new or worsening symptoms occur. We have discussed the symptoms which are most concerning (e.g., changing or worsening pain, fever, numbness, weakness, cool or painful digits) that necessitate immediate return. - Vital Signs Vital signs: Temp Pulse Resp BP Pulse Ox 98.0 F 99 18 146/64 H 91 L 05/14/17 11:30 05/14/17 11:30 05/14/17 11:30 05/14/17 11:30 05/14/17 11:30 - Diagnostic Test Radiology reviewed: Image reviewed, Reports reviewed Discharge - Discharge Clinical Impression: Dermatitis Hip pain Qualifiers: Laterality: bilateral Qualified Code(s): M25.551 - Pain in right hip; M25.552 - Pain in left hip; M25.552 - Pain in left hip Fall Qualifiers: Encounter type: initial encounter Qualified Code(s): W19.XXXA - Unspecified fall, initial encounter Condition: Stable Disposition: HOME, SELF-CARE Instructions: Cellulitis ([facility]) Referrals: DENICE MORRIS MD [Primary Care Provider] - Follow up tomorrow
[2017-05-14] MEDS ORDERED: HYDROCODONE/ACETAMINOPHEN 5-325 MG TABLET PO ONE (10:28)
[2017-05-14 11:30] VITALS: BP 146/64
== END 2017-05-14 11:51 | disposition home or self-care (01) ==
LOC: ER 09:10
DX: L30.9 Dermatitis, unspecified (principal); M25.551 Pain in right hip; M25.552 Pain in left hip; W18.30XA Fall on same level, unspecified, initial encounter; M79.1 Myalgia; I50.9 Heart failure, unspecified; I25.10 Atherosclerotic heart disease of native coronary artery without angina pectoris; E78.00 Pure hypercholesterolemia, unspecified; I11.0 Hypertensive heart disease with heart failure; J44.9 Chronic obstructive pulmonary disease, unspecified; E11.9 Type 2 diabetes mellitus without complications; E03.9 Hypothyroidism, unspecified; Z88.2 Allergy status to sulfonamides; Z88.3 Allergy status to other anti-infective agents; Z88.6 Allergy status to analgesic agent; I25.2 Old myocardial infarction; Z87.442 Personal history of urinary calculi; Z85.3 Personal history of malignant neoplasm of breast; Z95.1 Presence of aortocoronary bypass graft; Z90.710 Acquired absence of both cervix and uterus; Z96.641 Presence of right artificial hip joint; Z96.653 Presence of artificial knee joint, bilateral
CPT/HCPCS: 99283; 73502; A9270

== ENCOUNTER 2017-05-20 08:33 | Emergency (ER) | payer MEDICARE, MEDICAID ==
[2017-05-20] MEDS ORDERED: LIDOCAINE 1%/EPINEPHRINE INJ 20 ML VIAL INJ ONE (08:54)
--- NOTE | 2017-05-20 08:58 | ER Document Report ---
ED Fall - General Chief Complaint: Fall Stated Complaint: FALL HEAD,LEG,ARM PAIN Time Seen by Provider: 05/20/17 08:53 Notes: The patient is an 87-year-old female who presents after she fell out of her bed this morning. She is complaining of a headache and head laceration, bilateral shoulder pain and bilateral knee pain with laceration over her right knee. Patient takes a baby aspirin every day and denies any LOC this morning. She takes oxycodone every day for her postherpetic neuralgia. Patient denies blurry vision, focal weakness, numbness, tingling, heavy bleeding, back pain, chest pain, shortness of breath or syncope. TRAVEL OUTSIDE OF THE [place] IN LAST 30 DAYS: No - Related data Allergies/Adverse Reactions: codeine [Codeine] Allergy (Severe, Verified 04/28/17 17:07) headache bacitracin [From Neosporin ([id number])] Allergy (Verified 04/28/17 17:07) gabapentin Allergy (Verified 04/28/17 17:07) neomycin [From Neosporin ([id number])] Allergy (Verified 04/28/17 17:07) polymyxin B [From Neosporin ([id number]-[id number]-[id number])] Allergy (Verified 04/28/17 17:07) pregabalin [From Lyrica] Allergy (Verified 04/28/17 17:07) Hallucinations Sulfa (Sulfonamide Antibiotics) Allergy (Verified 04/28/17 17:07) itching Past Medical History - General Information source: Patient - Social History Smoking Status: Unknown if Ever Smoked Family History: CAD, CVA, DM, Hyperlipidemia, Hypertension Patient has suicidal ideation: No Patient has homicidal ideation: No - Past Medical History Cardiac Medical History: Reports: Hx Congestive Heart Failure, Hx Coronary Artery Disease, Hx Heart Attack, Hx Hypercholesterolemia, Hx Hypertension Pulmonary Medical History: Reports: Hx Asthma, Hx Bronchitis, Hx COPD, Hx Pneumonia, Hx Sleep Apnea Neurological Medical History: Denies: Hx Cerebrovascular Accident Endocrine Medical History: Reports: Hx Diabetes Mellitus Type 2, Hx Hyperthyroidism, Hx Hypothyroidism. Denies: Hx Graves' Disease Renal/ Medical History: Reports: Hx Kidney Stones. Denies: Hx Ovarian Cysts, Hx Peritoneal Dialysis, Hx Pelvic Inflammatory Disease Malignancy Medical History: Reports: Hx Breast Cancer GI Medical History: Reports: Hx Gastroesophageal Reflux Disease. Denies: Hx Irritable Bowel, Hx Liver Failure, Hx Pancreatitis, Hx Ulcer Musculoskeltal Medical History: Reports Hx Arthritis, Denies Hx Fibromyalgia, Denies Hx Multiple Sclerosis, Denies Hx Muscular Dystrophy, Reports Hx Musculoskeletal Deformity, Reports Hx Musculoskeletal Trauma Psychiatric Medical History: Reports: Hx Bipolar Disorder, Hx Depression Denies: Hx Schizophrenia Traumatic Medical History: Reports: Hx Fractures - right leg(small break) Infectious Medical History: Past Surgical History: Reports: Hx Adenoidectomy, Hx Appendectomy, Hx Cardiac Catheterization, Hx Cardiac Surgery - Double Bypass, Hx Cholecystectomy, Hx Coronary Artery Bypass Graft - 1996, Hx Hysterectomy, Hx Mastectomy - rt 1994, Hx Orthopedic Surgery - Right Hip replacement, bilateral knee replacements, Hx Tonsillectomy. Denies: Hx Bowel Surgery, Hx Tubal Ligation - Immunizations Immunizations up to date: Yes Hx Diphtheria, Pertussis, Tetanus Vaccination: Yes Hx Pneumococcal Vaccination: 09/07/11 Review of Systems - Review of Systems Notes: REVIEW OF SYSTEMS: CONSTITUTIONAL: -fevers, -chills EENT: -eye pain, -difficulty swallowing, -nasal congestion CARDIOVASCULAR:-chest pain, -syncope. RESPIRATORY: -cough, -SOB GASTROINTESTINAL: -abdominal pain, - nausea, -vomiting, -diarrhea GENITOURINARY: -dysuria, -hematuria MUSCULOSKELETAL: +B/L shoulder and knee pain HEMATOLOGIC: -easy bruising or bleeding. LYMPHATIC: -swollen, enlarged glands. NEUROLOGICAL: -altered mental status or loss of consciousness, +headache, - neurologic symptoms PSYCHIATRIC: -anxiety, -depression. ALL OTHER SYSTEMS REVIEWED AND NEGATIVE. Physical Exam - Vital signs Vitals: Temp Pulse Resp BP Pulse Ox 98.9 F 68 18 152/60 H 96 05/20/17 08:44 05/20/17 08:44 05/20/17 08:44 05/20/17 08:44 05/20/17 08:44 - Notes Notes: PHYSICAL EXAMINATION: GENERAL: Well-appearing, well-nourished and in no acute distress. HEAD: Left frontal T-shaped scalp laceration, normocephalic. EYES: Pupils equal round and reactive to light, extraocular movements intact, sclera anicteric, conjunctiva are normal. ENT: nares patent, oropharynx clear without exudates. Moist mucous membranes. NECK: Normal range of motion, supple without lymphadenopathy LUNGS: Breath sounds clear to auscultation bilaterally and equal. No wheezes rales or rhonchi. HEART: Regular rate and rhythm without murmurs ABDOMEN: Soft, nontender, normoactive bowel sounds. No guarding, no rebound. No masses appreciated. EXTREMITIES: Tenderness and painful ROM of B/L shoulders. Tenderness over B/L anterior knees. Skin tear of right anterior white ~4 cm T-shaped and 4 cm T- shaped deeper linear of right white. 1 cm linear laceration on plantar surface of left 2nd toe. NEUROLOGICAL: Cranial nerves grossly intact. Normal speech. Normal sensory and motor exams. PSYCH: Normal mood, normal affect. Course - Re-evaluation Re-evalutation: Pt presents after a mechanical fall out of bed. Head CT and multiple x-rays do not show any acute fractures or bleeds. Multiple lacerations irrigated and repaired. There is already talk with her primary care physician, Dr. Morris , about patient moving to a correction, but patient is resistant to this idea. Patient will follow up with her primary care physician in 1 week for removal of her sutures and yuliya. Instructed daughter about infection control and return precautions and she understands. - Vital Signs Vital signs: Temp Pulse Resp BP Pulse Ox 98.9 F 68 18 152/60 H 96 05/20/17 08:44 05/20/17 08:44 05/20/17 08:44 05/20/17 08:44 05/20/17 08:44 - Diagnostic Test Radiology reviewed: Image reviewed, Reports reviewed Procedures - Laceration/Wound Repair Right Anterior Leg Time completed: 10:58 Wound length (cm): 4 Wound's Depth, Shape: Other - T-shaped Laceration pre-procedure: Sterile PPE donned, CalvinClesridhar applied Anesthetic type: 1% Lidocaine w/epi Volume Anesthetic (mLs): 4 Wound explored: Clean Irrigated w/ Saline (mLs): 1,000 Wound Repaired With: Sutures Suture Size/Type: 4:0, Prolene Number of Sutures: 8 Layer Closure?: No Post-procedure wound care: Sterile dressing applied Post-procedure NV exam normal: Yes Complications: No Right Lateral Arm Time completed: 10:58 Wound length (cm): 4 Wound's Depth, Shape: Other - T-shaped Laceration pre-procedure: Sterile PPE donned Anesthetic type: 1% Lidocaine w/epi Volume Anesthetic (mLs): 6 Wound explored: Clean Irrigated w/ Saline (mLs): 1,000 Wound Repaired With: Sutures Suture Size/Type: 4:0, Prolene Number of Sutures: 9 Layer Closure?: No Post-procedure wound care: Sterile dressing applied Post-procedure NV exam normal: Yes Complications: No Left Toe 2nd digit Time completed: 10:59 Wound length (cm): 1 Wound's Depth, Shape: Linear Laceration pre-procedure: Sterile PPE donned Anesthetic type: 1% Lidocaine Volume Anesthetic (mLs): 2 Wound explored: Clean Irrigated w/ Saline (mLs): 250 Wound Repaired With: Sutures Suture Size/Type: 4:0, Prolene Number of Sutures: 2 Layer Closure?: No Post-procedure wound care: Sterile dressing applied Post-procedure NV exam normal: Yes Complications: No Left Upper Head Time completed: 11:01 Wound length (cm): 3 Wound's Depth, Shape: Other - T-shaped Laceration pre-procedure: Sterile PPE donned, Sterile drapes applied Anesthetic type: 1% Lidocaine w/epi Volume Anesthetic (mLs): 4 Wound explored: Clean Irrigated w/ Saline (mLs): 1,000 Wound Repaired With: Valentine Number of Sutures: 5 Layer Closure?: No Post-procedure wound care: Sterile dressing applied Post-procedure NV exam normal: Yes Complications: No Discharge - Discharge Clinical Impression: Leg laceration Qualifiers: Encounter type: initial encounter Laterality: right Qualified Code(s): S81.811A - Laceration without foreign body, right lower leg, initial encounter Scalp laceration Qualifiers: Encounter type: initial encounter Qualified Code(s): S01.01XA - Laceration without foreign body of scalp, initial encounter Fall Qualifiers: Encounter type: initial encounter Qualified Code(s): W19.XXXA - Unspecified fall, initial encounter Head injury Qualifiers: Encounter type: initial encounter Qualified Code(s): S09.90XA - Unspecified injury of head, initial encounter Toe laceration Qualifiers: Encounter type: initial encounter Toe: unspecified toe Damage to nail status: without damage Foreign body presence: without foreign body Laterality: left Qualified Code(s): S91.119A - Laceration without foreign body of unspecified toe without damage to nail, initial encounter Condition: Stable Disposition: HOME, SELF-CARE Additional Instructions: LACERATION CARE: Your laceration has been sutured to keep the skin edges aligned during healing. The time of suture removal depends on the nature and location of your cut. Please follow the care instructions the doctor has outlined for you and return for further care, according to the schedule you've been given. Keep the wound and dressing clean. Unless you were told otherwise, you may shower daily, blotting the wound dry with a clean, unused towel. At other times, If the dressing gets wet or blood soaked, remove it and blot the wound dry, then reapply a new dressing. Unless you were instructed otherwise, dressings should be changed at least daily. If any signs of infection occur (swelling, redness, drainage, increasing tenderness, red streaks, tender lumps in the armpit or groin above the laceration, or fever), see the doctor immediately. SOAP CLEANSING: Gently wash the wound daily using a mild soap (like Ivory, Phisoderm, Neutrogena). Use warm water, rubbing gently until all debris, ooze, and crusting have been washed from the wound. Allow to dry briefly (about 10 minutes) after cleaning. Repeat this cleansing at least three times a day for the first two days and then once or twice a day. ANTIBIOTIC OINTMENT PROTECTION: Your wounds are such that dressing them is not practical or optional. After cleansing, you should apply a thin coating of antibiotic ointment ( Bacitracin, not Neosporin) to the wounds at least three times daily. This lessens infection risk, and may decrease the amount of scarring. Use a q-tip or dull butter knife, not your finger, to apply this ointment. Any debris or ooze which builds up in the ointment should be gently rubbed off with a sterile gauze pad. Harder crusting may need to be gently scrubbed off with a clean wash cloth with soap and warm water, perhaps applying a warm, wet wash cloth to the wound for ten minutes first. Development of redness, severe itching, or blistering may mean allergy to the ointment. See the doctor. FOLLOW-UP CARE: Your sutures should be removed in 7-10 days. To facilitate a timely removal of your sutures, you may return to the Emergency Department at [facility]. You do not need to call for an appointment, but the best time to come in for suture removal is early in the morning. If you have been referred to another physician for follow-up care, call that physicians office for an appointment as you were instructed. If you experience a significant change in your laceration, or if you are concerned there may be an infection (swelling, redness, drainage, increasing tenderness, red streaks, tender lumps in the armpit or groin above the laceration, or fever) , return to the Emergency Department immediately re-evaluation. Forms: Elevated Blood Pressure Referrals: DENICE MORRIS MD [Primary Care Provider] - Follow up as needed
--- NOTE | 2017-05-20 09:58 | RADIOLOGY REPORT (SQ) ---
EXAM DESCRIPTION: CT HEAD WITHOUT COMPLETED DATE/TIME: 05/20/2017 9:22 am REASON FOR STUDY: fall COMPARISON: MRI brain 08/27/2015 CT brain 03/25/2012, 01/04/2013, 10/01/2013, 03/29/2017 TECHNIQUE: Axial images acquired through the brain without intravenous contrast. Images reviewed wi th bone, brain and subdural windows. Images stored on PACS. All CT scanners at this facility use dose modulation, iterative reconstruction, and/or weight based d osing when appropriate to reduce radiation dose to as low as reasonably achievable (ALARA). [facility]: Dose Right [facility]: CareDose [facility]: Dose Right [facility]: Teradose 4D [facility]: Smart Privy RADIATION DOSE: CT Rad equipment meets quality standard of care and radiation dose reduction techniq ues were employed. CTDIvol: 64.6 mGy. DLP: 1163 mGy-cm. mGy. LIMITATIONS: Mild motion artifact FINDINGS: VENTRICLES: Normal size and contour. CEREBRUM: No masses. No hemorrhage. No midline shift. No evidence for acute infarction. 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 No hemorrhage. No alteration of density. No evidence for acute infarction. EXTRAAXIAL SPACES: No fluid collections. No masses. ORBITS AND GLOBE: No intra- or extraconal masses. Globes post cataract surgery. CALVARIUM: No fracture. PARANASAL SINUSES: No fluid or mucosal thickening. SOFT TISSUES: No mass or hematoma. OTHER: No other significant finding. IMPRESSION: Mild motion artifact. Chronic small vessel disease. EVIDENCE OF ACUTE STROKE: NO. COMMENT: Quality ID # [id number]: Final reports with documentation of one or more dose reduction techniques (e.g., Automated exposure control, adjustment of the mA and/or kV according to patient size, use of iterative reconstruction technique) TECHNICAL DOCUMENTATION: JOB ID: [id number]- All Rights Reserved
--- NOTE | 2017-05-20 10:26 | RADIOLOGY REPORT (SQ) ---
EXAM DESCRIPTION: SHOULDER LEFT 2 OR MORE VIEWS COMPLETED DATE/TIME: 05/20/2017 10:01 am REASON FOR STUDY: fall COMPARISON: 04/25/2013 NUMBER OF VIEWS: Three views. TECHNIQUE: Internal rotation, external rotation, and Y view images acquired of the left shoulder. LIMITATIONS: None. FINDINGS: MINERALIZATION: Osteoporotic BONES: No acute fracture or dislocation. No worrisome bone lesions. JOINTS: No glenohumeral dislocation. Mild acromioclavicular joint bony spurring without AC joint wid ening VISUALIZED LUNGS AND RIBS: No pneumothorax. No rib fracture. SOFT TISSUES: Mild calcific tendinopathy along the infraspinatus OTHER: No other significant finding. IMPRESSION: No acute findings TECHNICAL DOCUMENTATION: JOB ID: [id number] [employer]- All Rights Reserved
--- NOTE | 2017-05-20 10:28 | RADIOLOGY REPORT (SQ) ---
EXAM DESCRIPTION: SHOULDER RIGHT 2 OR MORE VIEWS COMPLETED DATE/TIME: 05/20/2017 10:01 am REASON FOR STUDY: fall COMPARISON: 03/25/2012 right shoulder films 03/29/[address] chest 11/18/2016 NUMBER OF VIEWS: Two views. TECHNIQUE: AP and Y-view images acquired of the right shoulder. LIMITATIONS: None. FINDINGS: MINERALIZATION: Osteoporotic BONES: Old right surgical neck fracture, acute in 2011. This healed with foreshortening at the fract ure site similar compared to chest film from 03/29/[address] chest 11/18/2016. 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 No widening at the acromioclavicula r joint VISUALIZED LUNGS AND RIBS: No pneumothorax. No rib fracture. SOFT TISSUES: Old surgical clips right axilla post mastectomy OTHER: No other significant finding. IMPRESSION: Old healed surgical neck fracture right proximal humerus. No acute changes TECHNICAL DOCUMENTATION: JOB ID: [id number] [employer]- All Rights Reserved
--- NOTE | 2017-05-20 10:31 | RADIOLOGY REPORT (SQ) ---
EXAM DESCRIPTION: HIP RIGHT AP/LATERAL COMPLETED DATE/TIME: 05/20/2017 10:01 am REASON FOR STUDY: right hip pain COMPARISON: Multiple right hip and pelvis films 09/04/2011, 10/06/2011, 10/25/2011, 12/30/2011, 03/25/2012, 12/18/2015 NUMBER OF VIEWS: Two views. TECHNIQUE: AP pelvis and additional frog-leg view of the right hip. LIMITATIONS: None. FINDINGS: MINERALIZATION: Osteopenic RIGHT HIP: Old right hip replacement. There is evidence of prosthesis loosening, with lucency around the femoral component. Bulky heterotopic ossification around the greater and lesser trochanter. Ac etabular component anchored with a single screw. LEFT HIP: Left hip replacement. No lucency around the hardware worrisome for loosening. Heterotopic ossification along the greater trochanter left proximal femur. PUBIS AND ISCHIUM: No fracture. PELVIS: No gross acute fracture SACRUM: No fracture or dislocation. No worrisome bone lesions. LOWER LUMBAR SPINE: Advanced degenerative disc changes lower lumbar spine SOFT TISSUES: Heavy atherosclerotic arterial vascular calcification OTHER: No other significant finding. IMPRESSION: Lucency around a right hip prosthesis worrisome for chronic loosening. No acute fractur e of the bony pelvis. No dislocation of the right or left hip prosthesis TECHNICAL DOCUMENTATION: JOB ID: [id number] [employer]- All Rights Reserved
--- NOTE | 2017-05-20 10:34 | RADIOLOGY REPORT (SQ) ---
EXAM DESCRIPTION: KNEE LEFT 3 VIEWS COMPLETED DATE/TIME: 05/20/2017 10:13 am REASON FOR STUDY: fall COMPARISON: 04/25/2013, 03/05/2013 NUMBER OF VIEWS: Three views. TECHNIQUE: AP, lateral, and sunrise patella radiographic images acquired of the left knee. LIMITATIONS: None. FINDINGS: MINERALIZATION: Osteopenic BONES: No acute fracture or dislocation. No worrisome bone lesions. JOINT: Post total knee replacement with patellar resurfacing. No lucency around the hardware worriso me for loosening. No malalignment SOFT TISSUES: Heavy atherosclerotic arterial vascular calcifications. Surgical bypass clips in the r ight calf OTHER: No other significant finding. IMPRESSION: No acute findings TECHNICAL DOCUMENTATION: JOB ID: [id number] [employer]- All Rights Reserved
[2017-05-20 11:23] VITALS: BP 132/59
--- NOTE | 2017-05-20 11:40 | RADIOLOGY REPORT (SQ) ---
EXAM DESCRIPTION: KNEE RIGHT 3 VIEWS COMPLETED DATE/TIME: 05/20/2017 11:19 am REASON FOR STUDY: fall COMPARISON: None. NUMBER OF VIEWS: Three views. TECHNIQUE: AP, lateral, and tunnel radiographic images acquired of the right knee. LIMITATIONS: None. FINDINGS: MINERALIZATION: Osteoporotic BONES: Post total knee replacement with patellar resurfacing. No acute fracture or malalignment JOINT: Small suprapatellar knee joint effusion SOFT TISSUES: Atherosclerotic arterial vascular calcification OTHER: No other significant finding. IMPRESSION: No acute fracture or malalignment TECHNICAL DOCUMENTATION: JOB ID: [id number] [employer]- All Rights Reserved
== END 2017-05-20 11:35 | disposition home or self-care (01) ==
LOC: ER 08:33
PROC: 0HQNXZZ Repair Left Foot Skin, External Approach (ICD-10-PCS; principal; 2017-05-20)
PROC: 0HQ0XZZ Repair Scalp Skin, External Approach (ICD-10-PCS; 2017-05-20)
PROC: 0HQKXZZ Repair Right Lower Leg Skin, External Approach (ICD-10-PCS; 2017-05-20)
DX: S81.811A Laceration without foreign body, right lower leg, initial encounter (principal); S01.01XA Laceration without foreign body of scalp, initial encounter; S09.90XA Unspecified injury of head, initial encounter; S91.119A Laceration without foreign body of unspecified toe without damage to nail, initial encounter; M25.512 Pain in left shoulder; M25.511 Pain in right shoulder; M25.562 Pain in left knee; M25.561 Pain in right knee; W06.XXXA Fall from bed, initial encounter; Z79.82 Long term (current) use of aspirin; Z88.6 Allergy status to analgesic agent; Z88.2 Allergy status to sulfonamides
CPT/HCPCS: 99284; 73502; 73562 ×2; 73030 ×2; 70450; 12004; J3490

== ENCOUNTER 2017-06-03 09:33 | Inpatient (IN) | payer MEDICARE, MEDICAID ==
[2017-06-03] MEDS ORDERED: OXYCODONE-ACETAMINOPHEN 5-325 MG TABLET PO ONE ×2 (10:30→22:32)
--- NOTE | 2017-06-03 10:37 | ER Document Report ---
ED Skin Rash/Insect Bite/Abscs - General Chief Complaint: Itching Stated Complaint: RASH Time Seen by Provider: 06/03/17 10:24 Mode of Arrival: Medic Information source: Patient Notes: 87-year-old female presents to ED for complaint of rashes to her entire body sores to her back abdomen both legs chronic back pain chronic left shoulder pain. She states she lives at home by herself and she could not take it the itching and the pain last night so she called 911 to come to the emergency room. Patient has cellulitis to both legs lower legs and has confusion at this time. TRAVEL OUTSIDE OF THE [place] IN LAST 30 DAYS: No - HPI Patient complains to provider of: Skin rash/lesion, Tender/swollen area, Other - Multiple sores from scratching skin and from recent falls that have now become infected Onset: Other - Patient states she has had the rash and different sores for years some of new summer old Onset/Duration: Gradual Quality of pain: Sharp, Throbbing Severity: Moderate Pain Level: 3 Skin Character: Erythema, Rash, Other - She has sores many years scabs some more open to her abdomen chest back right axilla and both legs her buttocks is red but blanches easily very severe rash to all extremities with multiple open areas that she has scratched. Quality of rash: Itchy, Painful Exacerbated by: Denies Relieved by: Denies Similar symptoms previously: Yes Recently seen / treated by doctor: Yes - Related Data Allergies/Adverse Reactions: codeine [Codeine] Allergy (Severe, Verified 06/03/17 09:33) headache bacitracin [From Neosporin ([id number])] Allergy (Verified 06/03/17 09:33) gabapentin Allergy (Verified 06/03/17 09:33) neomycin [From Neosporin ([id number])] Allergy (Verified 06/03/17 09:33) polymyxin B [From Neosporin ([id number])] Allergy (Verified 06/03/17 09:33) pregabalin [From Lyrica] Allergy (Verified 06/03/17 09:33) Hallucinations Sulfa (Sulfonamide Antibiotics) Allergy (Verified 06/03/17 09:33) itching Home Medications: Current Home Medications Doxycycline Monohydrate 75 mg PO Q12 06/03/17 [History] Loratadine [Claritin] 10 mg PO DAILY 06/03/17 [History] Magnesium Oxide [Magox] 400 mg PO DAILY 06/03/17 [History] Oxycodone HCl/Acetaminophen [Oxycodone-Acetaminophen 10-325] 1 tab PO Q6 [History] Past Medical History - General Information source: Patient - Social History Smoking Status: Unknown if Ever Smoked Lives with: Alone Family History: CAD, CVA, DM, Hyperlipidemia, Hypertension Patient has homicidal ideation: No - Past Medical History Cardiac Medical History: Reports: Hx Congestive Heart Failure, Hx Coronary Artery Disease, Hx Heart Attack, Hx Hypercholesterolemia, Hx Hypertension Pulmonary Medical History: Reports: Hx Asthma, Hx Bronchitis, Hx COPD, Hx Pneumonia, Hx Sleep Apnea EENT Medical History: Reports: None Neurological Medical History: Reports: None Endocrine Medical History: Reports: Hx Diabetes Mellitus Type 2, Hx Hypothyroidism Renal/ Medical History: Reports: Hx Kidney Stones Malignancy Medical History: Reports: Hx Breast Cancer GI Medical History: Reports: Hx Gastroesophageal Reflux Disease Musculoskeltal Medical History: Reports Hx Arthritis, Reports Hx Musculoskeletal Deformity, Reports Hx Musculoskeletal Trauma Skin Medical History: Reports None Psychiatric Medical History: Reports: Hx Bipolar Disorder, Hx Depression Traumatic Medical History: Reports: Hx Fractures - right leg(small break) Infectious Medical History: Reports: None Past Surgical History: Reports: Hx Adenoidectomy, Hx Appendectomy, Hx Cardiac Catheterization, Hx Cardiac Surgery - Double Bypass, Hx Cholecystectomy, Hx Coronary Artery Bypass Graft - 1996, Hx Hysterectomy, Hx Mastectomy - rt 1994, Hx Orthopedic Surgery - Right Hip replacement, bilateral knee replacements, Hx Tonsillectomy - Immunizations Immunizations up to date: Yes Hx Diphtheria, Pertussis, Tetanus Vaccination: Yes Hx Pneumococcal Vaccination: 09/07/11 Review of Systems - Review of Systems Musculoskeletal: Back pain - Back pain the entire back, Joint pain - Left shoulder pain to touch even the skin 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 She states she goes to a facility attendant and they told her this is a rash old people according to the patient. Neurological/Psychological: Confusion Physical Exam - Vital signs Vitals: Temp Pulse Resp BP Pulse Ox 99.0 F 94 20 124/52 L 98 06/03/17 09:40 06/03/17 09:40 06/03/17 09:40 06/03/17 09:40 06/03/17 09:40 Interpretation: Normal - General General appearance: Appears well, Alert - HEENT Head: Normocephalic, Atraumatic Eyes: Normal Pupils: PERRL - Respiratory Respiratory status: No respiratory distress Chest status: Nontender Breath sounds: Normal Chest palpation: Normal - Cardiovascular Rhythm: Regular Heart sounds: Normal auscultation Murmur: No - Abdominal Inspection: Normal Distension: No distension Bowel sounds: Normal Tenderness: Nontender Organomegaly: No organomegaly - Back Back: Normal, Nontender - Extremities General upper extremity: Normal inspection, Nontender, Normal color, Normal ROM , Normal temperature General lower extremity: Normal inspection, Nontender, Normal color, Normal ROM , Normal temperature, Normal weight bearing. No: Jazmyn's sign - Neurological Neuro grossly intact: Yes Cognition: Normal Orientation: AAOx4 Manjinder Coma Scale Eye Opening: Spontaneous [place] Coma Scale Verbal: Oriented Manjinder Coma Scale Motor: Obeys Commands Clinton Coma Scale Total: 15 Speech: Normal Motor strength normal: LUE, RUE, LLE, RLE Sensory: Normal - Psychological Associated symptoms: Agitated, Confused - Skin Skin Temperature: Warm Skin Moisture: Dry Skin Color: Normal Skin irregularity: Rash - Rash from head to foot all arms legs abdomen chest back groin many have been scratched and now become sores with scabs some are open summer in straight lines such as a scabies. She states she goes to a facility attendant and they told her this is a rash old people according to the patient. Location of irregularity: Generalized, Extremities - Bilateral legs are red from the knee down with sores to both legs the right legs are scabbed and tender to touch Character of irregularity: Erythematous, Urticarial Irregularity with: Tenderness, Crusting, Inflammation Course - Vital Signs Vital signs: Temp Pulse Resp BP Pulse Ox 99.0 F 94 20 124/52 L 98 06/03/17 09:40 06/03/17 09:40 06/03/17 09:40 06/03/17 09:40 06/03/17 09:40 - Laboratory Result Diagrams: 06/03/17 11:30 06/03/17 12:44 Laboratory results interpreted by me: 06/03/17 06/03/17 11:30 12:44 RBC 3.38 L Hgb 9.5 L Hct 28.7 L RDW 16.4 H Eosinophils % 11.8 H Absolute Eosinophils 1.1 H Glucose 128 H Direct Bilirubin 0.5 H Total Protein 5.6 L Albumin 3.3 L Discharge - Discharge Clinical Impression: Confusion, Bilateral cellulitis of lower leg, Generalized rash Disposition: ADMITTED OBSERVATION Admitting Provider: Amalia gallardo admission Unit Admitted: Medical Floor
[2017-06-03 11:43] LABS: ABSOLUTE BASOPHILS # (AUTO) 0.1 10^3/uL (0.0-0.2); ABSOLUTE EOSINOPHILS # (AUTO) 1.1 10^3/uL (0.0-0.6); ABSOLUTE LYMPHOCYTES (AUTO) 1.4 10^3/uL (0.5-4.7); ABSOLUTE MONOCYTES (AUTO) 0.5 10^3/uL (0.1-1.4); ABSOLUTE NEUT (AUTO) 6.4 10^3/uL (1.7-8.2); BASOPHILS % (AUTO) 0.9 % (0-2); EOSINOPHILS % (AUTO) 11.8 % (0-6); HEMATOCRIT 28.7 % (36.0-47.0); HEMOGLOBIN 9.5 g/dL (12.0-15.5); HGB HCT DIFFERENCE -0.2; LYMPHOCYTES % (AUTO) 14.7 % (13-45); MEAN CORPUSCULAR HEMOGLOBIN 28.2 pg (27.0-33.4); MEAN CORPUSCULAR HGB CONC 33.3 g/dL (32.0-36.0); MEAN CORPUSCULAR VOLUME 85 fl (80-97); MONOCYTES % (AUTO) 5.2 % (3-13); RED BLOOD COUNT 3.38 10^6/uL (3.72-5.28); RED CELL DISTRIBUTION WIDTH 16.4 % (11.5-14.0); SEGMENTED NEUTROPHILS % (AUTO) 67.4 % (42-78); WHITE BLOOD COUNT 9.5 10^3/uL (4.0-10.5)
[2017-06-03 11:48] LABS: APPEARANCE,URINE CLEAR; BILIRUBIN,URINE NEGATIVE (NEGATIVE); GLUCOSE, URINE NEGATIVE (NEGATIVE); KETONES,URINE NEGATIVE (NEGATIVE); LEUKOCYTE ESTERASE,URINE NEGATIVE (NEGATIVE); NITRITE,URINE NEGATIVE (NEGATIVE); PROTEIN,URINE NEGATIVE (NEGATIVE); URINE SPECIFIC GRAVITY 1.006; UROBILINOGEN,URINE NEGATIVE mg/dL (<2.0)
[2017-06-03 13:21] LABS: ALANINE AMINOTRANSFERASE 33 U/L (9-52); ALBUMIN 3.3 g/dL (3.5-5.0); ALKALINE PHOSPHATASE 79 U/L (38-126); ANION GAP 12 (5-19); ASPARTATE AMINO TRANSFERASE 22 U/L (14-36); BILIRUBIN,DIRECT 0.5 mg/dL (0.0-0.4); BILIRUBIN,TOTAL 0.5 mg/dL (0.2-1.3); BLOOD UREA NITROGEN 12 mg/dL (7-20); CALCIUM 9.1 mg/dL (8.4-10.2); CARBON DIOXIDE 23 mmol/L (22-30); CHLORIDE 106 mmol/L (98-107); CREATININE RESULT 0.76 mg/dL (0.52-1.25); GLUCOSE 128 mg/dL (75-110); POTASSIUM 4.2 mmol/L (3.6-5.0); SODIUM 140.6 mmol/L (137-145); TOTAL PROTEIN 5.6 g/dL (6.3-8.2)
[2017-06-03] MEDS ORDERED: DOXYCYCLINE HYCLATE 100 MG TABLET PO ONE (14:36)
[2017-06-03] MEDS ORDERED: MORPHINE SULFATE 10 MG/ML INJ IV ONE (14:58)
[2017-06-03] MEDS ORDERED: DOXYCYCLINE HYCLATE INJ 100 MG VIAL IV PRN (23:16)
[2017-06-03] MEDS ORDERED: GLUCAGON,HUMAN RECOMB 1 MG INJ IM PRN (23:19)
[2017-06-03] MEDS ORDERED: DEXTROSE 50%-WATER SYRINGE 25 GM/50 ML DOSE IV PRN (23:19)
[2017-06-03] MEDS ORDERED: DEXTROSE 40% GEL 15 GM TUBE PO PRN (23:19)
[2017-06-03] MEDS ORDERED: DEXTROSE 50%-WATER SYRINGE 12.5 GM/25 ML DOSE IV PRN (23:19)
[2017-06-03] MEDS ORDERED: DEXTROSE 40% GEL 15 GM TUBE X 2 PO PRN (23:19)
[2017-06-04] MEDS: NORMAL SALINE 1000 ML 1,000 ML IV PRN ×2 (01:03→12:28)
[2017-06-04] MEDS: HYDROXYZINE HCL 10 MG TABLET PO PRN ×4 (02:31→22:02)
--- NOTE | 2017-06-04 10:08 | Physician Advisory Note ---
Physician Advisor ProgressNote .: [facility] I have reviewed the medical record for this patient. Physician Advisor Statement: Please consider documentin. "Chronic CHF, suspect ___ type" (systolic? diastolic? ...) 2. Medical necessity - see below. STatus: appropriately brought in as Outpt Obs to start. Medicare pt, has spent 1 MN in hospital so far. If she has ongoing clinical issues that concern attending today, please document them & may consider change to Inpateint status. ("Cellulitis insufficiently responding to tx", "I AM CONCERNED ABOUT ...") THanks! CK
[2017-06-04] MEDS: OXYCODONE-ACETAMINOPHEN 5-325 MG TABLET PO PRN ×3 (11:38→22:02)
[2017-06-04] MEDS: DOXYCYCLINE HYCLATE 100 MG in DEXTROSE 5%-WATER 250 ML IV SCH ×2 (12:27→22:03)
[2017-06-04] MEDS ORDERED: FENTANYL 50 MCG/HR PATCH.TD72 TOP SCH (18:00)
[2017-06-04] MEDS ORDERED: (PENDING PHARMACY ID) (Oxycodone Hcl/Acetaminophen [Endocet 10-325 Mg Tablet] 1 TAB) PO SCH (18:00)
[2017-06-04] MEDS: METHYLPREDNISOLONE INJ 40 MG/1 ML SDV IV SCH (18:08)
--- NOTE | 2017-06-04 18:42 | PDOC H&P ---
History of Present Illness Admission Date/PCP: 06/03/17 14:46 DENICE MORRIS MD History of Present Illness: SINAN MONTGOMERY is a 87 year old female, she is well-known to me, she came to the emergency room last night because of diffuse rash, altered mental status. I saw patient on the floor, she has erythematous rash widely distributed on the torso and extremities, she also have bullous eruption also on the back in the lower aspect. There is associated eosinophilia suggesting hypersensitivity reaction probably IgE mediated. She has ongoing skin rash, she saw the public policy professor, skin biopsy was done, but no compelling specific diagnosis was made. I suspect that this rash could be a reaction to some of the medication she is on, but I am not sure which ones she is having a reaction to. She will empirically be treated with IV Solu-Medrol, her regular medication will be held except pain medication. Past Medical History Cardiac Medical History: Reports: Coronary Artery Disease, Myocardial Infarction , Hyperlipidema, Hypertension Pulmonary Medical History: Reports: Asthma, Bronchitis, Chronic Obstructive Pulmonary Disease (COPD), Pneumonia, Sleep Apnea EENT Medical History: Reports: None Neurological Medical History: Reports: None Endocrine Medical History: Reports: Diabetes Mellitus Type 2, Hypothyroidism Renal/ Medical History: Malignancy Medical History: Reports: Breast Cancer GI Medical History: Reports: Gastroesophageal Reflux Disease Musculoskeltal Medical History: Reports: Arthritis Skin Medical History: Reports: None Psychiatric Medical History: Reports: Depression Hematology: Reports: Anemia Infectious Medical History: Reports: None Past Surgical History Past Surgical History: Reports: Adenoidectomy, Appendectomy, Cardiac Catheterization, Cholecystectomy, Coronary Artery Bypass Graft - 1996, Hysterectomy, Mastectomy - rt 1994, Orthopedic Surgery - Right Hip replacement, bilateral knee replacements, Tonsillectomy Social History Lives with: Alone Smoking Status: Former Smoker Frequency of Alcohol Use: None Hx Recreational Drug Use: No Drugs: None Hx Prescription Drug Abuse: No - Advance Directive Resuscitation Status: Full Code Family History Family History: CAD, CVA, DM, Hyperlipidemia, Hypertension Parental Family History Reviewed: Yes Children Family History Reviewed: Yes Sibling(s) Family History Reviewed.: Yes Medication/Allergy Home Medications: Ergocalciferol (Vitamin D2) [Vitamin D2] 50,000 unit PO HURST@0800 06/04/17 Isosorbide Mononitrate [Isosorbide Mononitrate ER] 30 mg PO DAILY 06/04/17 Linagliptin/Metformin HCl [Jentadueto 2.5 mg-1000 mg Tab] 1 tab PO BID 06/04/17 Pramipexole Di-HCl [Pramipexole Dihydrochloride] 0.25 mg PO DAILY 06/04/17 RX: Aspirin [Ecotrin 81 mg EC Tablet] 81 mg PO DAILY 06/04/17 RX: Doxycycline Monohydrate 75 mg PO BIDBS 06/04/17 RX: Duloxetine HCl [Cymbalta] 60 mg PO Q12 06/04/17 RX: Fentanyl [Duragesic 50 Mcg/Hr Transdermal Patch] 1 patch TOP Q72H 06/04/17 RX: Loratadine [Claritin 10 mg Tablet] 10 mg PO DAILY 06/04/17 RX: Losartan Potassium [Cozaar 100 mg Tablet] 100 mg PO DAILY 06/04/17 RX: Magnesium Oxide [Mag-Ox 400 mg Tablet] 400 mg PO DAILY 06/04/17 RX: Metoprolol Tartrate [Lopressor 25 mg Tablet] 25 mg PO DAILY 06/04/17 RX: Oxycodone HCl/Acetaminophen [Endocet 10-325 mg Tablet] 1 tab PO Q6 06/04/17 RX: Pravastatin Sodium [Pravachol] 40 mg PO DAILY 06/04/17 Allergies/Adverse Reactions: codeine [Codeine] Allergy (Severe, Verified 06/03/17 09:33) headache bacitracin [From Neosporin ([id number]-[id number])] Allergy (Verified 06/03/17 09:33) gabapentin Allergy (Verified 06/03/17 09:33) neomycin [From Neosporin ([id number]-vwr-vyats)] Allergy (Verified 06/03/17 09:33) polymyxin B [From Neosporin ([id number]-wyhkd)] Allergy (Verified 06/03/17 09:33) pregabalin [From Lyrica] Allergy (Verified 06/03/17 09:33) Hallucinations Sulfa (Sulfonamide Antibiotics) Allergy (Verified 06/03/17 09:33) itching Review of Systems Constitutional: PRESENT: fatigue, fever(s) Ears: ABSENT: hearing changes Cardiovascular: ABSENT: chest pain, dyspnea on exertion, edema, orthropnea, palpitations Respiratory: PRESENT: cough, dyspnea Gastrointestinal: ABSENT: abdominal pain, constipation, diarrhea, hematemesis, hematochezia, nausea, vomiting Genitourinary: ABSENT: dysuria, hematuria Integumentary: PRESENT: erythema, lesions, pruritus, rash Neurological: PRESENT: confusion, frequent falls Psychiatric: PRESENT: depression Endocrine: ABSENT: cold intolerance, heat intolerance, menstrual abnormalities, polydipsia, polyuria Hematologic/Lymphatic: ABSENT: easy bleeding, easy bruising, lymphadenopathy Physical Exam Vital Signs: Temp Pulse Resp BP Pulse Ox 98.3 F 93 21 H 157/92 H 98 06/04/17 16:00 06/04/17 16:00 06/04/17 16:00 06/04/17 16:00 06/04/17 16:00 Intake & Output 06/03/17 06/04/17 06/05/17 06:59 06:59 06:59 Intake Total 240 1160 Output Total 300 300 Balance -60 860 Weight 96.6 kg General appearance: PRESENT: mild distress, obese Eye exam: PRESENT: PERRLA Respiratory exam: PRESENT: wheezes Cardiovascular exam: PRESENT: +S1, +S2 GI/Abdominal exam: PRESENT: soft Neurological exam: PRESENT: alert Skin exam: PRESENT: erythema, rash - There is bullous eruption in the back, vesicles Assessment & Plan - Diagnosis (1) DRESS syndrome Is this a current diagnosis for this admission?: Yes Plan: 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 The components of dress syndrome is manifested in this patient. There is eosinophilia with evidence of drug reaction, the serum IgE is more than 300 suggesting IgE mediated reaction so clearly patient is having a drug hypersensitivity reaction, she will be treated with IV Solu-Medrol, we will hold off all medications. Virtually all the medication she takes the potential to cause dress syndrome (2) Eosinophilia Is this a current diagnosis for this admission?: Yes Plan: Patient to be started on IV Solu-Medrol (3) Bullous dermatitis Is this a current diagnosis for this admission?: Yes
[2017-06-04] MEDS ORDERED: METOPROLOL TARTRATE 25 MG TABLET PO ONE (21:00)
[2017-06-04] MEDS: INSULIN LISPRO 100 UNIT/ML 3 ML VIAL SUBCUT PRN (22:18)
[2017-06-05] MEDS: METHYLPREDNISOLONE INJ 40 MG/1 ML SDV IV SCH ×3 (01:35→17:38)
[2017-06-05] MEDS: OXYCODONE-ACETAMINOPHEN 5-325 MG TABLET PO SCH ×5 (01:41→23:40)
[2017-06-05] MEDS: OXYCODONE HCL IR 5 MG TABLET PO SCH ×5 (01:41→23:41)
--- NOTE | 2017-06-05 07:53 | Physician Advisory Note ---
Physician Advisor ProgressNote .: Pursuant to the plan for [facility], I have reviewed the medical record for this patient. Physician Advisor Statement: Please consider documentin. "Chronic CHF, suspect ___ type" (systolic? diastolic? ...) 2. "Chronic hypoxemic Respiratory Failure due to ___" (DCP reports pt uses chronic O2 at home) 3. Could pt have "DRESS Syndrome" ("Drug Reaction with Eosinophilia & Systemic Sx", has 10% mortality, sx typically begin several weeks after exposure to drug) ? 4. Medical necessity - appropriate to change to Inpt status. Review of home meds & potential skin side effects, per Genticel Nissa, in case attending finds helpful to save time: ISMN, & Mag oxide, & Ergocalciferol -> no rash-like side effects listed. Pravachol -> rash, hypersensitivity rxn, anaphylaxis, angioedema, toxic epidermal necrolysis, erythema multiforme, Ashley-Gómez syndrome Pramipexole -> "skin reaction" metoprolol tartrate -> pruritis, rash, hypersensitivity reaction, lupus erythematosus oxycodone -> rash, anaphylaxis, hypersensitivity reaction Losartan -> angioedema, anaphylaxis Jentadueto -> rash, hypersensitivity reaction, anaphylaxis, bullous pemphigoid Fentanyl -> pruritis, rash, hypersensitivity reaction, anaphylaxis Duloxetine -> anaphylaxis, Ashley-Gómez Syndrome, erythema multiforme, withdrawal sx if abrupt d/c doxycycline -> rash, photosensitivity, "severe skin reaction", vasculitis Aspirin -> anaphylaxis, angioedema loratadine -> anaphylaxis, angioedema STatus: appropriately brought in as Outpt Obs to start. Medicare pt, has spent 2 MN in hospital so far for ongoing clinical reasons. Cellulitis insufficiently responding to tx, attending concerned because unclear source of eosinophilia/bullous dermatitis. - Possible DRESS syndrome? CK
[2017-06-05] MEDS: INSULIN LISPRO 100 UNIT/ML 3 ML VIAL SUBCUT PRN ×2 (08:01→17:59)
[2017-06-05] MEDS: HYDROXYZINE HCL 10 MG TABLET PO PRN ×3 (08:13→23:41)
[2017-06-05 09:45] LABS: ABSOLUTE BASOPHILS # (AUTO) 0.1 10^3/uL (0.0-0.2); ABSOLUTE MONOCYTES (AUTO) 0.1 10^3/uL (0.1-1.4); ABSOLUTE NEUT (AUTO) 8.3 10^3/uL (1.7-8.2); BASOPHILS % (AUTO) 0.9 % (0-2); EOSINOPHILS % (AUTO) 0.1 % (0-6); HEMOGLOBIN 10.8 g/dL (12.0-15.5); HGB HCT DIFFERENCE -0.6; LYMPHOCYTES % (AUTO) 10.4 % (13-45); MEAN CORPUSCULAR HEMOGLOBIN 27.6 pg (27.0-33.4); MEAN CORPUSCULAR HGB CONC 32.7 g/dL (32.0-36.0); MEAN CORPUSCULAR VOLUME 84 fl (80-97); RED BLOOD COUNT 3.91 10^6/uL (3.72-5.28); RED CELL DISTRIBUTION WIDTH 15.9 % (11.5-14.0); SEGMENTED NEUTROPHILS % (AUTO) 87.6 % (42-78); WHITE BLOOD COUNT 9.5 10^3/uL (4.0-10.5)
[2017-06-05] MEDS: DOXYCYCLINE HYCLATE 100 MG in DEXTROSE 5%-WATER 250 ML IV SCH ×2 (10:21→21:33)
[2017-06-05] MEDS: METOPROLOL TARTRATE 25 MG TABLET PO SCH (10:21)
--- NOTE | 2017-06-05 21:33 | PDOC PROGRESS REPORT ---
Subjective Progress Note for:: 06/05/17 Subjective:: Patient was admitted yesterday with suspicion for dress syndrome, she is empirically on IV Solu-Medrol, she feels much better today there is less itching , less redness, the serum IgE is elevated suggesting that this is drug induced hypersensitive reaction, IgE mediated reaction. The challenge is to figure out which of the agent/drug is causing this reaction Reason For Visit: CELLULITIS Physical Exam Vital Signs: Temp Pulse Resp BP Pulse Ox 98.7 F 68 18 141/50 H 93 06/05/17 19:44 06/05/17 19:44 06/05/17 19:44 06/05/17 19:44 06/05/17 19:44 Intake & Output 06/04/17 06/05/17 06/06/17 06:59 06:59 06:59 Intake Total 964 Balance 964 General appearance: PRESENT: no acute distress Eye exam: PRESENT: PERRLA Respiratory exam: PRESENT: clear to auscultation julio Cardiovascular exam: PRESENT: +S1, +S2 GI/Abdominal exam: PRESENT: soft Assessment & Plan - Diagnosis (1) Eosinophilia Is this a current diagnosis for this admission?: Yes (2) Bullous dermatitis Is this a current diagnosis for this admission?: Yes (3) Diabetes mellitus Qualifiers: Diabetes mellitus type: type 2 Diabetes mellitus complication status: with neurologic complications Diabetes mellitus complication detail: with polyneuropathy Diabetes mellitus assisted insulin use: without assisted use Qualified Code(s): E11.42 - Type 2 diabetes mellitus with diabetic polyneuropathy (4) DRESS syndrome Is this a current diagnosis for this admission?: Yes
[2017-06-06] MEDS: METHYLPREDNISOLONE INJ 40 MG/1 ML SDV IV SCH ×4 (01:15→23:17)
[2017-06-06] MEDS: OXYCODONE HCL IR 5 MG TABLET PO SCH ×4 (05:47→23:17)
[2017-06-06] MEDS: HYDROXYZINE HCL 10 MG TABLET PO PRN ×3 (05:47→23:17)
[2017-06-06] MEDS: OXYCODONE-ACETAMINOPHEN 5-325 MG TABLET PO SCH ×4 (05:47→23:17)
[2017-06-06] MEDS: METOPROLOL TARTRATE 25 MG TABLET PO SCH (11:27)
[2017-06-06] MEDS: OXYCODONE-ACETAMINOPHEN 5-325 MG TABLET PO PRN (11:27)
[2017-06-06] MEDS: DOXYCYCLINE HYCLATE 100 MG in DEXTROSE 5%-WATER 250 ML IV SCH ×2 (11:30→23:17)
--- NOTE | 2017-06-06 20:28 | PDOC PROGRESS REPORT ---
Subjective Progress Note for:: 06/06/17 Subjective:: She was seen by the bedside she has IgE mediated hypersensitivity reaction she is still on IV Solu-Medrol, the dose to reduce to 20 mg Reason For Visit: CELLULITIS Physical Exam Vital Signs: Temp Pulse Resp BP Pulse Ox 96 F L 64 20 121/68 96 06/06/17 17:00 06/06/17 17:00 06/06/17 17:00 06/06/17 17:00 06/06/17 17:00 Intake & Output 06/05/17 06/06/17 06/07/17 06:59 06:59 06:59 Intake Total 1953 1170 Balance 1953 1170 Weight 93.4 kg General appearance: PRESENT: no acute distress Eye exam: PRESENT: PERRLA Respiratory exam: PRESENT: clear to auscultation julio Neurological exam: PRESENT: alert, CN II-XII grossly intact Assessment & Plan - Diagnosis (1) DRESS syndrome Is this a current diagnosis for this admission?: Yes (2) Eosinophilia Is this a current diagnosis for this admission?: Yes (3) Bullous dermatitis Is this a current diagnosis for this admission?: Yes (4) Diabetes mellitus Qualifiers: Diabetes mellitus type: type 2 Diabetes mellitus complication status: with neurologic complications Diabetes mellitus complication detail: with polyneuropathy Diabetes mellitus terminal computer operator insulin use: without mcfp use Qualified Code(s): E11.42 - Type 2 diabetes mellitus with diabetic polyneuropathy - Plan Summary Plan Summary: Continue Solu-Medrol at reduced dose
[2017-06-07] MEDS: OXYCODONE-ACETAMINOPHEN 5-325 MG TABLET PO SCH ×3 (05:15→17:35)
[2017-06-07] MEDS: HYDROXYZINE HCL 10 MG TABLET PO PRN ×2 (05:15→11:59)
[2017-06-07] MEDS: OXYCODONE HCL IR 5 MG TABLET PO SCH ×3 (05:16→17:35)
[2017-06-07] MEDS: METHYLPREDNISOLONE INJ 40 MG/1 ML SDV IV SCH ×3 (05:16→21:18)
[2017-06-07] MEDS: INSULIN LISPRO 100 UNIT/ML 3 ML VIAL SUBCUT PRN ×3 (08:29→16:53)
[2017-06-07] MEDS: DOXYCYCLINE HYCLATE 100 MG in DEXTROSE 5%-WATER 250 ML IV SCH ×2 (09:52→21:19)
[2017-06-07] MEDS: METOPROLOL TARTRATE 25 MG TABLET PO SCH (09:52)
[2017-06-07] MEDS ORDERED: FENTANYL 50 MCG/HR PATCH.TD72 TOP SCH (10:00)
[2017-06-07] MEDS: NORMAL SALINE 1000 ML 1,000 ML IV PRN (14:04)
--- NOTE | 2017-06-07 21:55 | PDOC PROGRESS REPORT ---
Subjective Progress Note for:: 06/07/17 Subjective:: There is improvement in the skin rash, the plan is for patient to stop all medication because we are not sure of the exact medication causing the drug reaction Reason For Visit: CELLULITIS Physical Exam Vital Signs: Temp Pulse Resp BP Pulse Ox 98.6 F 64 18 173/53 H 100 06/07/17 20:23 06/07/17 20:23 06/07/17 20:23 06/07/17 20:23 06/07/17 20:23 Intake & Output 06/06/17 06/07/17 06/08/17 06:59 06:59 06:59 Intake Total 1953 1850 1210 Balance 1953 185 1210 Weight 93.4 kg General appearance: PRESENT: no acute distress Eye exam: PRESENT: PERRLA Respiratory exam: PRESENT: clear to auscultation julio Cardiovascular exam: PRESENT: +S1, +S2 GI/Abdominal exam: PRESENT: soft Neurological exam: PRESENT: alert Assessment & Plan - Diagnosis (1) DRESS syndrome Is this a current diagnosis for this admission?: Yes (2) Eosinophilia Is this a current diagnosis for this admission?: Yes (3) Bullous dermatitis Is this a current diagnosis for this admission?: Yes (4) Diabetes mellitus Qualifiers: Diabetes mellitus type: type 2 Diabetes mellitus complication status: with neurologic complications Diabetes mellitus complication detail: with polyneuropathy Diabetes mellitus usp insulin use: without petroleum terminal plant operator use Qualified Code(s): E11.42 - Type 2 diabetes mellitus with diabetic polyneuropathy Is this a current diagnosis for this admission?: Yes
[2017-06-08] MEDS: HYDROXYZINE HCL 10 MG TABLET PO PRN (00:15)
[2017-06-08] MEDS: OXYCODONE-ACETAMINOPHEN 5-325 MG TABLET PO SCH ×4 (00:15→17:33)
[2017-06-08] MEDS: OXYCODONE HCL IR 5 MG TABLET PO SCH ×4 (00:15→17:32)
[2017-06-08] MEDS: METHYLPREDNISOLONE INJ 40 MG/1 ML SDV IV SCH ×2 (05:56→13:38)
[2017-06-08] MEDS: INSULIN LISPRO 100 UNIT/ML 3 ML VIAL SUBCUT PRN ×2 (08:20→12:08)
[2017-06-08] MEDS: METOPROLOL TARTRATE 25 MG TABLET PO SCH (10:00)
[2017-06-08] MEDS: DOXYCYCLINE HYCLATE 100 MG in DEXTROSE 5%-WATER 250 ML IV SCH (10:01)
[2017-06-08 17:08] VITALS: BP 179/63
--- NOTE | 2017-06-08 20:42 | PDOC DISCHARGE SUMMARY ---
General - Admit/Disc Date/PCP Admission Date/Primary Care Provider: 06/05/17 11:40 DENICE MORRIS MD Discharge Date: 06/08/17 - Discharge Diagnosis (1) DRESS syndrome Is this a current diagnosis for this admission?: Yes (2) Eosinophilia Is this a current diagnosis for this admission?: Yes (3) Bullous dermatitis Is this a current diagnosis for this admission?: Yes (4) Diabetes mellitus Is this a current diagnosis for this admission?: Yes (5) Elevated IgE level Is this a current diagnosis for this admission?: Yes - Additional Information Resuscitation Status: Full Code Discharge Diet: As Tolerated Discharge Activity: Activity As Tolerated Prescriptions: RX: Prednisone 20 mg PO 20 #30 tablet Home Medications: RX: Doxycycline Monohydrate 75 mg PO BIDBS 06/04/17 RX: Duloxetine HCl [Cymbalta] 60 mg PO Q12 06/04/17 RX: Fentanyl [Duragesic 50 Mcg/Hr Transdermal Patch] 1 patch TOP Q72H 06/04/17 RX: Metoprolol Tartrate [Lopressor 25 mg Tablet] 25 mg PO DAILY 06/04/17 RX: Oxycodone HCl/Acetaminophen [Endocet 10-325 mg Tablet] 1 tab PO Q6 06/04/17 RX: Prednisone 20 mg PO 20 #30 tablet 06/08/17 History of Present Illness History of Present Illness: SINAN MONTGOMERY is a 87 year old female, she is well-known to me, she came to the emergency room last night because of diffuse rash, altered mental status. I saw patient on the floor, she has erythematous rash widely distributed on the torso and extremities, she also have bullous eruption also on the back in the lower aspect. There is associated eosinophilia suggesting hypersensitivity reaction probably IgE mediated. She has ongoing skin rash, she saw the dining service inspector, skin biopsy was done, but no compelling specific diagnosis was made. I suspect that this rash could be a reaction to some of the medication she is on, but I am not sure which ones she is having a reaction to. She will empirically be treated with IV Solu-Medrol, her regular medication will be held except pain medication. Hospital Course Hospital Course: Patient was admitted for the management of drug reaction, eosinophilia with systemic symptoms, dress syndrome. She was managed with IV Solu-Medrol with improvement in both systemic symptoms and the skin rash. The medications that patient regularly uses for medical condition all have the potentia to cause drug reaction because we are not sure of the specific medication causing the drug reaction all the medications were held except metoprolol and the medication for pain, oxycodone and fentanyl patch. she was treated with IV Solu -Medrol with very good results Physical Exam Vital Signs: Temp Pulse Resp BP Pulse Ox 98.1 F 65 20 179/63 H 100 06/08/17 19:37 06/08/17 19:37 06/08/17 19:37 06/08/17 19:37 06/08/17 19:37 Intake & Output 06/07/17 06/08/17 06/09/17 06:59 06:59 06:59 Intake Total 1850 2280 1200 Output Total 600 Balance 1850 2280 600 General appearance: PRESENT: no acute distress Head exam: PRESENT: atraumatic, normocephalic Eye exam: PRESENT: conjunctiva pink, EOMI, PERRLA Ear exam: PRESENT: normal external ear exam Mouth exam: PRESENT: moist, tongue midline Neck exam: PRESENT: full ROM Respiratory exam: PRESENT: clear to auscultation julio Cardiovascular exam: PRESENT: RRR, +S1, +S2 Pulses: PRESENT: normal dorsalis pedis pul, +2 pedal pulses bilateral Vascular exam: PRESENT: normal capillary refill GI/Abdominal exam: PRESENT: normal bowel sounds, soft Rectal exam: PRESENT: deferred Neurological exam: PRESENT: alert, awake, oriented to person, oriented to place , oriented to time, oriented to situation, CN II-XII grossly intact. ABSENT: motor sensory deficit Psychiatric exam: PRESENT: appropriate affect, normal mood. ABSENT: homicidal ideation, suicidal ideation Skin exam: PRESENT: erythema, rash Plan Time Spent: Less than 30 Minutes - She is discharged home on tapered dose prednisone
== END 2017-06-08 19:42 | disposition home or self-care (01) | DRG 607 ==
LOC: ER 09:33 → EH 14:46 → 5 23:43 → INTOOBSV 06-05 11:40 → OBSVTOIN 06-05 11:40
PROVIDERS: ADMIT Internal Medicine; ATTEND Internal Medicine
DX: L27.0 Generalized skin eruption due to drugs and medicaments taken internally (principal); M35.8 Other specified systemic involvement of connective tissue; L03.116 Cellulitis of left lower limb; L03.115 Cellulitis of right lower limb; T50.905A Adverse effect of unspecified drugs, medicaments and biological substances, initial encounter; Y92.9 Unspecified place or not applicable; R21 Rash and other nonspecific skin eruption; D46.1 Refractory anemia with ring sideroblasts; Z60.2 Problems related to living alone; I50.9 Heart failure, unspecified; I11.0 Hypertensive heart disease with heart failure; I25.10 Atherosclerotic heart disease of native coronary artery without angina pectoris; J44.9 Chronic obstructive pulmonary disease, unspecified; E11.42 Type 2 diabetes mellitus with diabetic polyneuropathy; E03.9 Hypothyroidism, unspecified; L13.9 Bullous disorder, unspecified; K21.9 Gastro-esophageal reflux disease without esophagitis; M95.9 Acquired deformity of musculoskeletal system, unspecified; M19.90 Unspecified osteoarthritis, unspecified site; F31.9 Bipolar disorder, unspecified; I25.2 Old myocardial infarction; Z96.653 Presence of artificial knee joint, bilateral; Z96.641 Presence of right artificial hip joint; Z79.84 Long term (current) use of oral hypoglycemic drugs; Z79.82 Long term (current) use of aspirin; Z79.899 Other long term (current) drug therapy
CPT/HCPCS: 36415; 80053; 81001; 82785; 82962; 85025; 96374; 99284; J1815; J2270; J2920; J3490; J7030; J7060

== ENCOUNTER 2017-09-02 09:36 | Emergency (ER) | payer MEDICARE, MEDICAID ==
[2017-09-02 10:58] LABS: ABSOLUTE EOSINOPHILS # (AUTO) 0.5 10^3/uL (0.0-0.6); ABSOLUTE LYMPHOCYTES (AUTO) 0.9 10^3/uL (0.5-4.7); ABSOLUTE MONOCYTES (AUTO) 0.6 10^3/uL (0.1-1.4); ABSOLUTE NEUT (AUTO) 6.6 10^3/uL (1.7-8.2); BASOPHILS % (AUTO) 0.5 % (0-2); EOSINOPHILS % (AUTO) 6.1 % (0-6); HEMATOCRIT 32.6 % (36.0-47.0); HEMOGLOBIN 10.3 g/dL (12.0-15.5); LYMPHOCYTES % (AUTO) 10.7 % (13-45); MEAN CORPUSCULAR HGB CONC 31.7 g/dL (32.0-36.0); MEAN CORPUSCULAR VOLUME 82 fl (80-97); MONOCYTES % (AUTO) 7.4 % (3-13); PLATELET COUNT 317 10^3/uL (150-450); RED BLOOD COUNT 3.98 10^6/uL (3.72-5.28); RED CELL DISTRIBUTION WIDTH 17.3 % (11.5-14.0); SEGMENTED NEUTROPHILS % (AUTO) 75.3 % (42-78); TOTAL CELLS COUNTED % (AUTO) 100 %; WHITE BLOOD COUNT 8.7 10^3/uL (4.0-10.5)
[2017-09-02 11:05] LABS: INTERNATIONAL RATION (INR) 0.92; PROTHROMBIN TIME 13.1 SEC (11.4-15.4)
[2017-09-02 11:06] LABS: PARTIAL THROMBOPLASTIN TIME 34.2 SEC (23.5-35.8)
[2017-09-02] MEDS ORDERED: AMPICILLIN SOD/SULBACTAM 3 GM VIAL IV ONE (11:12)
[2017-09-02 11:20] LABS: ALANINE AMINOTRANSFERASE 22 U/L (9-52); ALBUMIN 3.4 g/dL (3.5-5.0); ALKALINE PHOSPHATASE 70 U/L (38-126); ANION GAP 7 (5-19); ASPARTATE AMINO TRANSFERASE 20 U/L (14-36); BILIRUBIN,DIRECT 0.4 mg/dL (0.0-0.4); BILIRUBIN,TOTAL 0.4 mg/dL (0.2-1.3); BLOOD UREA NITROGEN 14 mg/dL (7-20); CALCIUM 8.8 mg/dL (8.4-10.2); CARBON DIOXIDE 31 mmol/L (22-30); CHLORIDE 101 mmol/L (98-107); GLUCOSE 242 mg/dL (75-110); POTASSIUM 3.9 mmol/L (3.6-5.0); SODIUM 138.9 mmol/L (137-145); TOTAL PROTEIN 6.1 g/dL (6.3-8.2)
[2017-09-02] MEDS ORDERED: CLINDAMYCIN HCL 150 MG CAPSULE PO ONE (12:55)
--- NOTE | 2017-09-02 12:57 | ER Document Report ---
ED General - General Chief Complaint: Leg Swelling Stated Complaint: LEG PAIN Time Seen by Provider: 09/02/17 10:01 TRAVEL OUTSIDE OF THE [place] IN LAST 30 DAYS: No - HPI Patient complains to provider of: Possible cellulitis Notes: Patient coming in for evaluation of possible cellulitis to bilateral lower extremities. Patient is from local [facility]. Patient upon my evaluation states that she is not know why she is here in the ER today. Patient has really no complaints. Patient upon dressing her leg states that they are normally not as red as the other day. Patient denies fevers chills nausea vomiting diarrhea. Patient otherwise is alert nontoxic looking - Related Data Allergies/Adverse Reactions: codeine [Codeine] Allergy (Severe, Verified 09/02/17 09:49) headache bacitracin [From Neosporin ([id number])] Allergy (Verified 09/02/17 09:49) gabapentin Allergy (Verified 09/02/17 09:49) neomycin [From Neosporin ([id number])] Allergy (Verified 09/02/17 09:49) polymyxin B [From Neosporin ([id number])] Allergy (Verified 09/02/17 09:49) pregabalin [From Lyrica] Allergy (Verified 09/02/17 09:49) Hallucinations Sulfa (Sulfonamide Antibiotics) Allergy (Verified 09/02/17 09:49) itching Past Medical History - Social History Smoking Status: Never Smoker Chew tobacco use (# tins/day): No Frequency of alcohol use: None Family History: CAD, CVA, DM, Hyperlipidemia, Hypertension Patient has suicidal ideation: No Patient has homicidal ideation: No - Past Medical History Cardiac Medical History: Reports: Hx Congestive Heart Failure, Hx Coronary Artery Disease, Hx Heart Attack, Hx Hypercholesterolemia, Hx Hypertension Pulmonary Medical History: Reports: Hx Asthma, Hx Bronchitis, Hx COPD, Hx Pneumonia, Hx Sleep Apnea Neurological Medical History: Endocrine Medical History: Reports: Hx Diabetes Mellitus Type 2, Hx Hypothyroidism Renal/ Medical History: Reports: Hx Kidney Stones. Denies: Hx Peritoneal Dialysis Malignancy Medical History: Reports: Hx Breast Cancer GI Medical History: Reports: Hx Gastroesophageal Reflux Disease Musculoskeltal Medical History: Reports Hx Arthritis, Reports Hx Musculoskeletal Deformity, Reports Hx Musculoskeletal Trauma Psychiatric Medical History: Reports: Hx Bipolar Disorder, Hx Depression Traumatic Medical History: Reports: Hx Fractures - right leg(small break) Infectious Medical History: Past Surgical History: Reports: Hx Adenoidectomy, Hx Appendectomy, Hx Cardiac Catheterization, Hx Cardiac Surgery - Double Bypass, Hx Cholecystectomy, Hx Coronary Artery Bypass Graft - 1996, Hx Hysterectomy, Hx Mastectomy - rt 1994, Hx Orthopedic Surgery - Right Hip replacement, bilateral knee replacements, Hx Tonsillectomy - Immunizations Immunizations up to date: Yes Hx Diphtheria, Pertussis, Tetanus Vaccination: Yes Hx Pneumococcal Vaccination: 09/07/11 Review of Systems - Review of Systems Constitutional: No symptoms reported EENT: No symptoms reported Cardiovascular: No symptoms reported Respiratory: No symptoms reported Gastrointestinal: No symptoms reported Genitourinary: No symptoms reported Female Genitourinary: No symptoms reported Musculoskeletal: No symptoms reported Skin: Other - Possible cellulitis Hematologic/Lymphatic: No symptoms reported Neurological/Psychological: No symptoms reported -: Yes All other systems reviewed and negative Physical Exam - Vital signs Vitals: Temp Pulse Resp BP Pulse Ox 98.2 F 86 18 132/63 H 89 L 09/02/17 09:45 09/02/17 09:45 09/02/17 09:45 09/02/17 09:45 09/02/17 09:45 Interpretation: Normal - General General appearance: Appears well, Alert - HEENT Head: Normocephalic, Atraumatic Eyes: Normal Pupils: PERRL - Respiratory Respiratory status: No respiratory distress Chest status: Nontender Breath sounds: Normal Chest palpation: Normal - Cardiovascular Rhythm: Regular Heart sounds: Normal auscultation Murmur: No - Abdominal Inspection: Normal Distension: No distension Bowel sounds: Normal Tenderness: Nontender Organomegaly: No organomegaly - Back Back: Normal, Nontender - Extremities General upper extremity: Normal inspection, Nontender, Normal color, Normal ROM , Normal temperature General lower extremity: Edema. No: Normal color - Erythema of the lower extremity below the knee right greater than left with increased warmth bilaterally when compared to the upper thigh. There is edema bilaterally 2+ weeping. No open sores. - Neurological Neuro grossly intact: Yes Cognition: Normal Orientation: AAOx4 [place] Coma Scale Eye Opening: Spontaneous Manjinder Coma Scale Verbal: Oriented Manjinder Coma Scale Motor: Obeys Commands [place] Coma Scale Total: 15 Speech: Normal Motor strength normal: LUE, RUE, LLE, RLE Sensory: Normal - Psychological Associated symptoms: Normal affect, Normal mood - Skin Skin Temperature: Warm Skin Moisture: Dry Skin Color: Normal Course - Re-evaluation Re-evalutation: 09/02/17 15:12 Patient examination is concerning for underlying cellulitis however patient does not have any fevers nor elevation of white count or left shift. Did discuss patient's case with PCP Dr. Morris patient does have a history of rashes and dress syndrome with eosinophilia. Dr. Morris states that this is chronic however does agree with current treatment of clindamycin for cellulitis. Patient initially was given a dose of Unasyn patient was given oral dose of clindamycin tolerated well. Was discharged home. Patient sleeping awoke with transport arrival patient began itching her arm. Was notified this upon evaluation patient was itching her left arm. There is several rash no signs of welts or hives no signs of allergic reaction unclear whether patient was itching arm but was given a dose of Benadryl according nursing staff after dose of Benadryl was given 3 minutes later patient stopped itching no signs of overt large reaction therefore patient was transported by the [facility]. - Vital Signs Vital signs: Temp Pulse Resp BP Pulse Ox 98.2 F 86 16 152/107 H 100 09/02/17 09:45 09/02/17 09:45 09/02/17 14:37 09/02/17 14:37 09/02/17 14:37 - Laboratory Result Diagrams: 09/02/17 10:30 09/02/17 10:30 Laboratory results interpreted by me: 09/02/17 09/02/17 10:30 10:30 Hgb 10.3 L Hct 32.6 L MCH 26.0 L MCHC 31.7 L RDW 17.3 H Lymphocytes % 10.7 L Eosinophils % 6.1 H Carbon Dioxide 31 H Glucose 242 H Magnesium 1.5 L Total Protein 6.1 L Albumin 3.4 L Discharge - Discharge Clinical Impression: Bilateral lower leg cellulitis Cellulitis Qualifiers: Site of cellulitis: extremity Site of cellulitis of extremity: lower extremity Laterality: unspecified laterality Qualified Code(s): L03.119 - Cellulitis of unspecified part of limb Condition: Good Disposition: HOME, SELF-CARE Instructions: Cellulitis ([facility]) Additional Instructions: Patient was seen and diagnosed with bilateral lower extremity cellulitis. Laboratory studies not show any signs of sepsis because of cellulitis. I did discuss the case with Dr. Morris states that he will monitor the patient for worsening of her condition agrees with clindamycin orally for treatment. Please make sure that she follows up with your physician in 3-5 days Prescriptions: Clindamycin HCl [Cleocin 150 mg Capsule] 150 mg PO Q6 #40 capsule Referrals: DENICE MORRIS MD [Primary Care Provider] - Follow up as needed
[2017-09-02 14:43] VITALS: BP 152/107
[2017-09-02] MEDS ORDERED: DIPHENHYDRAMINE HCL 50 MG/ML VIAL IM ONE (14:52)
[2017-09-02] MEDS ORDERED: DIPHENHYDRAMINE HCL 50 MG/ML VIAL ONE (14:54)
== END 2017-09-02 15:00 | disposition home or self-care (01) ==
LOC: ER 09:36
DX: L03.116 Cellulitis of left lower limb (principal); L03.115 Cellulitis of right lower limb; M79.89 Other specified soft tissue disorders
CPT/HCPCS: 99284; 96372; 96365; 36415; 87040; 83735; 85025; 85610; 85730; 80053; A9270; J1200; J0295

== ENCOUNTER 2017-09-26 19:01 | Emergency (ER) | payer MEDICARE, MEDICAID ==
[2017-09-26] MEDS ORDERED: IPRATROPIUM/ALBUTEROL 0.5-2.5 MG/3 ML AMPUL NEB ONE (19:46)
[2017-09-26] MEDS ORDERED: METHYLPREDNISOLONE INJ 125 MG/2 ML SDV IV ONE (19:48)
--- NOTE | 2017-09-26 19:52 | ER Document Report ---
ED General - General Chief Complaint: Altered Mental Status Stated Complaint: AMS Time Seen by Provider: 09/26/17 19:16 Notes: Patient is an 87-year-old female comes emergency department for chief complaint of altered mental status, EMS reports they were called out because she was confused, EMS states that patient was found to have hypoxia on arrival in the 80s, placed on oxygen, transported to the emergency department. Patient does admit to a cough, she admits to itching all over, however she denies any other complaints. She denies fevers. She is alert and oriented both for EMS and for me. Past medical history includes hypertension, type 2 diabetes, CAD. She states she is a former smoker but does not know if she has COPD. TRAVEL OUTSIDE OF THE [place] IN LAST 30 DAYS: No - Related Data Allergies/Adverse Reactions: codeine [Codeine] Allergy (Severe, Verified 09/26/17 19:17) headache bacitracin [From Neosporin ([id number])] Allergy (Verified 09/26/17 19:17) gabapentin Allergy (Verified 09/26/17 19:17) neomycin [From Neosporin ([id number])] Allergy (Verified 09/26/17 19:17) polymyxin B [From Neosporin ([id number])] Allergy (Verified 09/26/17 19:17) pregabalin [From Lyrica] Allergy (Verified 09/26/17 19:17) Hallucinations Sulfa (Sulfonamide Antibiotics) Allergy (Verified 09/26/17 19:17) itching Past Medical History - General Information source: Patient - Social History Smoking Status: Former Smoker Frequency of alcohol use: None Drug Abuse: None Lives with: Family Family History: CAD, CVA, DM, Hyperlipidemia, Hypertension Patient has suicidal ideation: No Patient has homicidal ideation: No - Past Medical History Cardiac Medical History: Reports: Hx Congestive Heart Failure, Hx Coronary Artery Disease, Hx Heart Attack, Hx Hypercholesterolemia, Hx Hypertension Pulmonary Medical History: Reports: Hx Asthma, Hx Bronchitis, Hx COPD, Hx Pneumonia, Hx Sleep Apnea Neurological Medical History: Endocrine Medical History: Reports: Hx Diabetes Mellitus Type 2, Hx Hypothyroidism Renal/ Medical History: Reports: Hx Kidney Stones. Denies: Hx Peritoneal Dialysis Malignancy Medical History: Reports: Hx Breast Cancer GI Medical History: Reports: Hx Gastroesophageal Reflux Disease Musculoskeltal Medical History: Reports Hx Arthritis, Reports Hx Musculoskeletal Deformity, Reports Hx Musculoskeletal Trauma Psychiatric Medical History: Reports: Hx Bipolar Disorder, Hx Depression Traumatic Medical History: Reports: Hx Fractures - right leg(small break) Infectious Medical History: Past Surgical History: Reports: Hx Adenoidectomy, Hx Appendectomy, Hx Cardiac Catheterization, Hx Cardiac Surgery - Double Bypass, Hx Cholecystectomy, Hx Coronary Artery Bypass Graft - 1996, Hx Hysterectomy, Hx Mastectomy - rt 1994, Hx Orthopedic Surgery - Right Hip replacement, bilateral knee replacements, Hx Tonsillectomy - Immunizations Immunizations up to date: Yes Hx Diphtheria, Pertussis, Tetanus Vaccination: Yes Hx Pneumococcal Vaccination: 09/07/11 Review of Systems - Review of Systems Constitutional: No symptoms reported EENT: No symptoms reported Cardiovascular: See HPI Respiratory: See HPI Gastrointestinal: No symptoms reported Genitourinary: No symptoms reported Female Genitourinary: No symptoms reported Musculoskeletal: No symptoms reported Skin: No symptoms reported Hematologic/Lymphatic: No symptoms reported Neurological/Psychological: No symptoms reported Physical Exam - Vital signs Vitals: Resp Pulse Ox 23 H 99 09/26/17 19:15 09/26/17 19:15 - General General appearance: Appears well In distress: None - HEENT Head: Normocephalic, Atraumatic Eyes: Normal Conjunctiva: Normal Extraocular movements intact: Yes Eyelashes: Normal Pupils: PERRL Mouth/Lips: Normal Mucous membranes: Normal Pharynx: Normal Neck: Normal - Respiratory Respiratory status: No respiratory distress. No: Labored, Tachypnea Breath sounds: Decreased air movement, Wheezing - Cardiovascular Rhythm: Regular. No: Tachycardia Heart sounds: Normal auscultation, S1 appreciated, S2 appreciated Murmur: No Normal capillary refill: Yes - Abdominal Inspection: Normal Tenderness: Nontender. No: Tender, Guarding - Back Back: Normal, Nontender, Other - Fentanyl patch noted on the left upper back. 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 - Neurological Neuro grossly intact: Yes Cognition: Normal Orientation: AAOx4 [place] Coma Scale Eye Opening: Spontaneous [place] Coma Scale Verbal: Oriented Manjinder Coma Scale Motor: Obeys Commands Franklin Coma Scale Total: 15 Speech: Normal Motor strength normal: LUE, RUE, LLE, RLE Sensory: Normal - Skin Skin Temperature: Warm Skin Moisture: Dry Skin Color: Normal Course - Re-evaluation Re-evalutation: Patient with expiratory wheezes, decreased breath sounds, possible COPD exacerbation. When oxygen is turned off she becomes hypoxic in the upper 80s. She is not in respiratory distress, no tachycardia, no hypertension. 09/26/17 23:30 Wheezing resolved with treatment patient still drops down to the 80s on room air without oxygen. She does not have oxygen normally reportedly. She does have a history of blood clot in the past. No obvious rales, BNP is elevated. Chest x-ray is still pending. Chest x-ray unremarkable. Discussed with patient. Decision was made to perform CTA to rule out pulmonary embolism as the cause of her hypoxia. Patient in full agreement. CTA consistent with chronic bronchitis, no pulmonary and listen, pneumonia, or vascular congestion noted. Appears to be COPD related. Patient is symptomatically on oxygen. Remaining workup with no significant change from prior. I called and spoke with Dr. Holland. Discussed presentation, workup, patient' s oxygen dependence. Patient is on oxygen at night but not during the day, plan will be for patient to be on steroid and for patient to be on 3 L nasal cannula during the day during the COPD exacerbation at [facility]. Discharged with these instructions. - Vital Signs Vital signs: Temp Pulse Resp BP Pulse Ox 98.3 F 69 20 146/76 H 93 09/27/17 03:00 09/26/17 19:16 09/27/17 03:01 09/27/17 03:01 09/27/17 03:01 - Laboratory Result Diagrams: 09/26/17 21:30 09/26/17 21:30 Laboratory results interpreted by me: 09/26/17 09/26/17 09/26/17 21:30 21:30 21:30 Hgb 11.2 L Hct 35.6 L MCH 26.0 L MCHC 31.5 L RDW 18.0 H Eosinophils % 10.6 H Absolute Eosinophils 1.0 H Carbon Dioxide 31 H Glucose 115 H NT-Pro-B Natriuret Pep 2140 H Total Protein 5.2 L Albumin 3.4 L Discharge - Discharge Clinical Impression: Hypoxia, COPD exacerbation Condition: Stable Disposition: SNF-Other Additional Instructions: Examination and workup tonight is consistent with COPD exacerbation. Take prednisone as prescribed, I spoke with Dr. Amalia gordon, instead of just wearing 2 L nasal cannula at night, wear 3 L nasal cannula at all times. Follow -up closely with your provider. Return for any worsening symptoms including difficulty breathing, fever 100.4 greater, or any other concerning or worsening symptoms. Prescriptions: Prednisone 60 mg PO DAILY #15 tablet
--- NOTE | 2017-09-26 21:28 | RADIOLOGY REPORT (SQ) ---
EXAM DESCRIPTION: CT HEAD WITHOUT COMPLETED DATE/TIME: 09/26/2017 9:05 pm REASON FOR STUDY: altered mental status COMPARISON: 05/20/2017 TECHNIQUE: Axial images acquired through the brain without intravenous contrast. Images reviewed wi th bone, brain and subdural windows. Additional sagittal and coronal reconstructions were generated. Images stored on PACS. All CT scanners at this facility use dose modulation, iterative reconstruction, and/or weight based d osing when appropriate to reduce radiation dose to as low as reasonably achievable (ALARA). [facility]: Dose Right [facility]: CareDose [facility]: Dose Right [facility]: Teradose 4D [facility]: Smart Insync RADIATION DOSE: CT Rad equipment meets quality standard of care and radiation dose reduction techniq ues were employed. CTDIvol: 53.2 mGy. DLP: 1070 mGy-cm. mGy. LIMITATIONS: None. FINDINGS: VENTRICLES: Prominent. CEREBRUM: No masses. No hemorrhage. No midline shift. Areas of low density in the white matter mos t likely due to chronic micro-vascular ischemic change. No evidence for acute infarction. CEREBELLUM: No masses. No hemorrhage. No alteration of density. No evidence for acute infarction. EXTRAAXIAL SPACES: Mild age-related involutional change. No fluid collections. No masses. ORBITS AND GLOBE: No intra- or extraconal masses. Normal contour of globe without masses. CALVARIUM: No fracture. PARANASAL SINUSES: No fluid or mucosal thickening. SOFT TISSUES: No mass or hematoma. OTHER: No other significant finding. IMPRESSION: No acute intracranial findings. EVIDENCE OF ACUTE STROKE: No TECHNICAL DOCUMENTATION: JOB ID: [id number] [place]-72 Quality ID # [id number]: Final reports with documentation of one or more dose reduction techniques (e.g., Au tomated exposure control, adjustment of the mA and/or kV according to patient size, use of iterative reconstruction technique) 2010 [employer]- All Rights Reserved Reading location - IP/workstation name: [email or web address]
[2017-09-26 21:44] LABS: VENOUS BLOOD BASE EXCESS 3.9 mmol/L; VENOUS BLOOD HCO3 30.7 mmol/L (20-32); VENOUS BLOOD PH 7.35 (7.30-7.42)
[2017-09-26 21:48] LABS: ABSOLUTE BASOPHILS # (AUTO) 0.1 10^3/uL (0.0-0.2); ABSOLUTE MONOCYTES (AUTO) 0.4 10^3/uL (0.1-1.4); ABSOLUTE NEUT (AUTO) 5.9 10^3/uL (1.7-8.2); BASOPHILS % (AUTO) 0.8 % (0-2); EOSINOPHILS % (AUTO) 10.6 % (0-6); HEMATOCRIT 35.6 % (36.0-47.0); HEMOGLOBIN 11.2 g/dL (12.0-15.5); LYMPHOCYTES % (AUTO) 21.4 % (13-45); MEAN CORPUSCULAR HGB CONC 31.5 g/dL (32.0-36.0); MEAN CORPUSCULAR VOLUME 83 fl (80-97); MONOCYTES % (AUTO) 4.1 % (3-13); PLATELET COUNT 301 10^3/uL (150-450); RED BLOOD COUNT 4.31 10^6/uL (3.72-5.28); SEGMENTED NEUTROPHILS % (AUTO) 63.1 % (42-78); TOTAL CELLS COUNTED % (AUTO) 100 %; WHITE BLOOD COUNT 9.4 10^3/uL (4.0-10.5)
[2017-09-26 22:06] LABS: ALANINE AMINOTRANSFERASE 26 U/L (9-52); ALBUMIN 3.4 g/dL (3.5-5.0); ALKALINE PHOSPHATASE 84 U/L (38-126); ANION GAP 9 (5-19); ASPARTATE AMINO TRANSFERASE 26 U/L (14-36); BILIRUBIN,DIRECT 0.1 mg/dL (0.0-0.4); BILIRUBIN,TOTAL 0.5 mg/dL (0.2-1.3); BLOOD UREA NITROGEN 17 mg/dL (7-20); CALCIUM 9.2 mg/dL (8.4-10.2); CARBON DIOXIDE 31 mmol/L (22-30); CHLORIDE 100 mmol/L (98-107); CREATINE KINASE 103 U/L (30-135); GLUCOSE 115 mg/dL (75-110); POTASSIUM 4.4 mmol/L (3.6-5.0); SODIUM 140.3 mmol/L (137-145); TOTAL PROTEIN 5.2 g/dL (6.3-8.2)
[2017-09-26 22:24] LABS: CREATINE KINASE MB 1.69 ng/mL (<4.55); NT PRO BNP 2140 pg/mL (<450)
[2017-09-26 22:26] LABS: TROPONIN I < 0.012 ng/mL
[2017-09-26 22:27] LABS: APPEARANCE,URINE SLIGHTLY-CLOUDY; BILIRUBIN,URINE NEGATIVE (NEGATIVE); COLOR,URINE YELLOW; GLUCOSE, URINE NEGATIVE (NEGATIVE); KETONES,URINE NEGATIVE (NEGATIVE); LEUKOCYTE ESTERASE,URINE NEGATIVE (NEGATIVE); NITRITE,URINE NEGATIVE (NEGATIVE); PROTEIN,URINE NEGATIVE (NEGATIVE); UROBILINOGEN,URINE NEGATIVE mg/dL (<2.0)
--- NOTE | 2017-09-26 23:29 | EKG REPORT ---
SEVERITY:- ABNORMAL ECG - SINUS RHYTHM NONSPECIFIC INTRAVENTRICULAR CONDUCTION DELAY : Confirmed by: Caitlin Castanon 26-Sep-2017 23:28:49
--- NOTE | 2017-09-26 23:54 | RADIOLOGY REPORT (SQ) ---
EXAM DESCRIPTION: CHEST SINGLE VIEW COMPLETED DATE/TIME: 09/26/2017 8:59 pm REASON FOR STUDY: hypoxia, wheezing, cough COMPARISON: 03/29/2017 EXAM PARAMETERS: NUMBER OF VIEWS: One view. TECHNIQUE: Single frontal radiographic view of the chest acquired. RADIATION DOSE: NA LIMITATIONS: None. FINDINGS: LUNGS AND PLEURA: No acute opacities, masses or pneumothorax. No pleural effusion. MEDIASTINUM AND HILAR STRUCTURES: Stable. HEART AND VASCULAR STRUCTURES: Stable. BONES: No acute findings. HARDWARE: CABG. Right axillary surgical clips. OTHER: No other significant finding. IMPRESSION: NO ACUTE RADIOGRAPHIC FINDING IN THE CHEST. TECHNICAL DOCUMENTATION: JOB ID: [id number] [place]-72 2010 [employer]- All Rights Reserved Reading location - IP/workstation name: [email or web address]
--- NOTE | 2017-09-27 01:13 | RADIOLOGY REPORT (SQ) ---
EXAM DESCRIPTION: CTA of the chest per PE protocol with contrast. CLINICAL HISTORY: hypoxia COMPARISON: 10/31/2016 TECHNIQUE: CTA of the chest obtained following the uncomplicated intravenous administration of 100 mL Isovue-370. 3-D/MIP reformatted images of the chest available for evaluation. DLP: 1567.66 mGycm FINDINGS: Chest: Pulmonary arteries: Contrast bolus is suboptimal. No large central filling defects identified. Suboptimal evaluation of the lobar, segmental, and subsegmental pulmonary arterial branches due to contrast bolus timing. Dilation of the main pulmonary artery. Thyroid:No abnormalities of the visualized thyroid. Great Vessels:Great vessels have normal anatomic configuration. Thoracic Aorta: Atherosclerotic calcification of the thoracic aorta. Heart: Median sternotomy. Heart is not enlarged. Coronary artery atherosclerosis. No significant pericardial effusion. Lymph Nodes:No enlarged mediastinal lymph nodes identified. Esophagus:No abnormalities of the esophagus identified. Other:No additional findings. Lungs: Significant respiratory motion artifact. No lobar consolidation. Interval decrease in peripheral reticular nodular interstitial opacities from the comparison study. Pleura:No pleural effusion or pneumothorax. Trachea/Airways: Mild bronchial wall thickening. No definite abnormalities of the trachea. Bones:No destructive osseous lesions. Upper Abdomen:Limited images of the upper abdomen demonstrate no definite abnormalities of visualized portions of the liver, pancreas, spleen, adrenal glands, or kidneys. Prior cholecystectomy. IMPRESSION: 1. No large pulmonary embolus identified. Suboptimal evaluation of the lobar, segmental, and subsegmental pulmonary arterial branches due to contrast bolus timing. 2. Enlargement of main pulmonary artery could be seen with pulmonary arterial hypertension. 3. Interval decrease in mild peripheral reticular nodular interstitial opacities as well as mild bronchial wall thickening. These findings suggest chronic bronchitis and/or interstitial lung disease. 4. Coronary artery atherosclerosis and prior CABG. This exam was performed according to our departmental dose-optimization program, which includes automated exposure control, adjustment of the mA and/or kV according to patient size and/or use of iterative reconstruction technique.
[2017-09-27] MEDS ORDERED: OXYCODONE HCL IR 5 MG TABLET PO ONE (01:14)
[2017-09-27] MEDS ORDERED: IPRATROPIUM/ALBUTEROL 0.5-2.5 MG/3 ML AMPUL NEB ONE (01:20)
[2017-09-27 03:08] VITALS: BP 146/76
== END 2017-09-27 03:15 ==
LOC: ER 19:01
DX: R41.82 Altered mental status, unspecified (principal); Z88.6 Allergy status to analgesic agent; Z88.3 Allergy status to other anti-infective agents; Z88.2 Allergy status to sulfonamides; I10 Essential (primary) hypertension; E11.9 Type 2 diabetes mellitus without complications; Z87.891 Personal history of nicotine dependence; I50.9 Heart failure, unspecified; I25.10 Atherosclerotic heart disease of native coronary artery without angina pectoris; I25.2 Old myocardial infarction; E78.00 Pure hypercholesterolemia, unspecified; I11.0 Hypertensive heart disease with heart failure; J44.9 Chronic obstructive pulmonary disease, unspecified; E03.9 Hypothyroidism, unspecified; Z87.442 Personal history of urinary calculi; Z85.3 Personal history of malignant neoplasm of breast; Z90.49 Acquired absence of other specified parts of digestive tract; Z95.1 Presence of aortocoronary bypass graft; Z96.641 Presence of right artificial hip joint; Z96.653 Presence of artificial knee joint, bilateral
CPT/HCPCS: 93005; 94640; 99285; 96374; 36415; 87040; 82553; 82550; 85025; 80053; 81001; 84484; 82803; 83880; 71045; 70450; 71275; 93010; J2930; A9270 ×2; J7620

== ENCOUNTER 2017-11-01 04:41 | Emergency (ER) | payer MEDICARE, MEDICAID ==
[2017-11-01] MEDS ORDERED: OXYCODONE-ACETAMINOPHEN 5-325 MG TABLET PO ONE ×2 (05:15→07:52)
--- NOTE | 2017-11-01 07:19 | ER Document Report ---
ED General - General Chief Complaint: Fall Time Seen by Provider: 11/01/17 06:09 Mode of Arrival: Medic Information source: Patient, Emergency Med Personnel Notes: 87-year-old female presents from care facility after mechanical fall. Patient admits to chronic generalized pain however admits to a new right shoulder pain and neck pain. Patient also has a history of peripheral edema daughter who is in the room notes healing ulceration of the left heel TRAVEL OUTSIDE OF THE [place] IN LAST 30 DAYS: No - HPI Onset: Just prior to arrival Onset/Duration: Sudden Quality of pain: Achy Severity: Mild Pain Level: 1 Associated symptoms: Body/muscle aches Exacerbated by: Movement Relieved by: Denies Similar symptoms previously: Yes Recently seen / treated by doctor: Yes - Related Data Allergies/Adverse Reactions: codeine [Codeine] Allergy (Severe, Verified 09/26/17 19:17) headache bacitracin [From Neosporin ([id number])] Allergy (Verified 09/26/17 19:17) gabapentin Allergy (Verified 09/26/17 19:17) neomycin [From Neosporin ([id number])] Allergy (Verified 09/26/17 19:17) polymyxin B [From Neosporin ([id number]-[id number])] Allergy (Verified 09/26/17 19:17) pregabalin [From Lyrica] Allergy (Verified 09/26/17 19:17) Hallucinations Sulfa (Sulfonamide Antibiotics) Allergy (Verified 09/26/17 19:17) itching Past Medical History - Social History Smoking Status: Never Smoker Cigarette use (# per day): No Chew tobacco use (# tins/day): No Smoking Education Provided: No Family History: CAD, CVA, DM, Hyperlipidemia, Hypertension - Past Medical History Cardiac Medical History: Reports: Hx Congestive Heart Failure, Hx Coronary Artery Disease, Hx Heart Attack, Hx Hypercholesterolemia, Hx Hypertension Pulmonary Medical History: Reports: Hx Asthma, Hx Bronchitis, Hx COPD, Hx Pneumonia, Hx Sleep Apnea Neurological Medical History: Denies: Hx Cerebrovascular Accident Endocrine Medical History: Reports: Hx Diabetes Mellitus Type 2, Hx Hyperthyroidism, Hx Hypothyroidism. Denies: Hx Graves' Disease Renal/ Medical History: Reports: Hx Kidney Stones. Denies: Hx Ovarian Cysts, Hx Peritoneal Dialysis, Hx Pelvic Inflammatory Disease Malignancy Medical History: Reports: Hx Breast Cancer GI Medical History: Reports: Hx Gastroesophageal Reflux Disease. Denies: Hx Irritable Bowel, Hx Liver Failure, Hx Pancreatitis, Hx Ulcer Musculoskeltal Medical History: Reports Hx Arthritis, Denies Hx Fibromyalgia, Denies Hx Multiple Sclerosis, Denies Hx Muscular Dystrophy, Reports Hx Musculoskeletal Deformity, Reports Hx Musculoskeletal Trauma Psychiatric Medical History: Reports: Hx Bipolar Disorder, Hx Depression Denies: Hx Schizophrenia Traumatic Medical History: Reports: Hx Fractures - right leg(small break) Infectious Medical History: Past Surgical History: Reports: Hx Adenoidectomy, Hx Appendectomy, Hx Cardiac Catheterization, Hx Cardiac Surgery - Double Bypass, Hx Cholecystectomy, Hx Coronary Artery Bypass Graft - 1996, Hx Hysterectomy, Hx Mastectomy - rt 1994, Hx Orthopedic Surgery - Right Hip replacement, bilateral knee replacements, Hx Tonsillectomy. Denies: Hx Bowel Surgery, Hx Tubal Ligation - Immunizations Immunizations up to date: Yes Hx Diphtheria, Pertussis, Tetanus Vaccination: Yes Hx Pneumococcal Vaccination: 09/07/11 Review of Systems - Review of Systems Notes: REVIEW OF SYSTEMS: CONSTITUTIONAL : Denies fever, chills, or sweats. Denies recent illness. EENT: Denies eye, ear, throat, or mouth pain or symptoms. Denies nasal or sinus congestion or discharge. Denies throat, tongue, or mouth swelling or difficulty swallowing. CARDIOVASCULAR: Denies chest pain. Denies palpitations or racing or irregular heart beat. Denies ankle edema. RESPIRATORY: Denies cough, cold, or chest congestion. Denies shortness of breath, difficulty breathing, or wheezing. GASTROINTESTINAL: Denies abdominal pain or distention. Denies nausea, vomiting , or diarrhea. Denies blood in vomitus, stools, or per rectum. Denies black, tarry stools. Denies constipation. GENITOURINARY: Denies difficulty urinating, painful urination, burning, frequency, blood in urine, or discharge. FEMALE GENITOURINARY: Denies vaginal bleeding, heavy or abnormal periods, irregular periods. Denies vaginal discharge or odor. MUSCULOSKELETAL: Right shoulder pain neck pain SKIN: Denies rash, lesions or sores. HEMATOLOGIC : Denies easy bruising or bleeding. LYMPHATIC: Denies swollen, enlarged glands. NEUROLOGICAL: Denies confusion or altered mental status. Denies passing out or loss of consciousness. Denies dizziness or lightheadedness. Denies headache. Denies weakness or paralysis or loss of use of either side. Denies problems with gait or speech. Denies sensory loss, numbness, or tingling. Denies seizures. PSYCHIATRIC: Denies anxiety or stress. Denies depression, suicidal ideation, or homicidal ideation. ALL OTHER SYSTEMS REVIEWED AND NEGATIVE. PHYSICAL EXAMINATION: GENERAL: Well-appearing, well-nourished and in no acute distress. HEAD: Atraumatic, normocephalic. EYES: Pupils equal round and reactive to light, extraocular movements intact, conjunctiva are normal. ENT: Nares patent, oropharynx clear without exudates. Moist mucous membranes. NECK: C-collar in place no cervical tenderness, after removal of c-collar normal range of motion, supple without lymphadenopathy LUNGS: Breath sounds clear to auscultation bilaterally and equal. No wheezes rales or rhonchi. Patient on nasal cannula HEART: Regular rate and rhythm without murmurs ABDOMEN: Soft, nontender, nondistended abdomen. No guarding, no rebound. No masses appreciated. Female : deferred Musculoskeletal: Extensive peripheral edema chronic NEUROLOGICAL: Cranial nerves grossly intact. Normal speech, normal gait. Normal sensory, motor exams PSYCH: Normal mood, normal affect. SKIN: Weeping of lower extremities healed ulceration left heel Dictation was performed using [employer] voice recognition software Course - Re-evaluation Re-evalutation: 11/01/17 06:43 CT cervical spine noted no significant abnormality, chronic changes are noted, c -collar was removed, patient was already given pain control prior to my arrival , x-ray imaging is pending at this time overall patient looks well I have very low suspicion for any life-threatening issues she does have extensive chronic issues 11/01/17 08:22 There has been extensive delay of results from x-ray imaging, I have reviewed the images myself and the previous shoulder image from last year, appears patient has had a previous fracture that has healed poorly chronic arthritic changes noted After performing a Medical Screening Examination, I estimate there is LOW risk for INTRACRANIAL HEMORRHAGE, UNSTABLE SPINE FRACTURE, CENTRAL CORD SYNDROME, CAUDA EQUINA, THORACIC AORTIC DISSECTION, PNEUMOTHORAX, PERFORATED BOWEL, RUPTURED ABDOMINAL AORTIC ANEURYSM, ACUTE TENDON RUPTURE, COMPARTMENT SYNDROME, or OPEN FRACTURE, thus I consider the discharge disposition reasonable. Also, there is no evidence or peritonitis, sepsis, or toxicity. I have reevaluated this patient multiple times and no significant life threatening changes are noted. The patient daughter and I have discussed the diagnosis and risks, and we agree with discharging home to follow-up with their primary doctor with the understanding that symptoms and presentations can change. We also discussed returning to the Emergency Department immediately if new or worsening symptoms occur. We have discussed the symptoms which are most concerning (e.g., bloody stool, fever, changing or worsening pain, vomiting) that necessitate immediate return. - Diagnostic Test Radiology reviewed: Image reviewed - CT cervical spine without contrast notes chronic changes, Reports reviewed Discharge - Discharge Clinical Impression: Chronic pain syndrome Fall Qualifiers: Encounter type: initial encounter Qualified Code(s): W19.XXXA - Unspecified fall, initial encounter Right shoulder pain Qualifiers: Chronicity: chronic Qualified Code(s): M25.511 - Pain in right shoulder; G89.29 - Other chronic pain; G89.29 - Other chronic pain Condition: Stable Disposition: HOME, SELF-CARE Additional Instructions: Follow up with your physician tomorrow for further care or return to the ED IMMEDIATELY if symptoms worsen or new concerns occur. If you cannot afford to follow up with your primary care physician a list of low cost clinics have been provided at the end of your discharge papers as well. Referrals: DENICE MORRIS MD [Primary Care Provider] - Follow up tomorrow
--- NOTE | 2017-11-01 07:56 | RADIOLOGY REPORT (SQ) ---
EXAM DESCRIPTION: CT CERVICAL SPINE WITHOUT CLINICAL HISTORY: 87 years Female, Fell, in a C-collar and in lots of neck pain. COMPARISON: None. TECHNIQUE: No contrast. Coronal and sagittal reformat. This exam was performed according to our departmental dose-optimization program, which includes automated exposure control, adjustment of the mA and/or kV according to patient size and/or use of iterative reconstruction technique. FINDINGS: 0.5 cm C6 anterolisthesis, 0.2 cm C5 retrolisthesis, fusion of the right C4-C5 facet joint, small disc bulge at the C5-C6 and C6-C7 levels, likely chronic ligamentum flavum thickening and calcification at the C5 and C6 levels, mild/moderate spinal canal stenosis between the C5 and C7 levels, moderate C6-C7 vacuum disc desiccation, mild-moderate multilevel spondylosis, moderate atlantoaxial osteoarthritis, atherosclerosis include bilateral carotid arterial system. Mild levo convexity. Inferior neck and upper thorax appear grossly intact. IMPRESSION: Likely degenerative 0.5 cm C6 anterolisthesis.
--- NOTE | 2017-11-01 08:23 | RADIOLOGY REPORT (SQ) ---
EXAM DESCRIPTION: SHOULDER RIGHT 2 OR MORE VIEWS COMPLETED DATE/TIME: 11/01/2017 7:06 am REASON FOR STUDY: FELL COMPARISON: 05/20/2017 NUMBER OF VIEWS: Three views. TECHNIQUE: Internal rotation, external rotation, and Y view images acquired of the right shoulder. LIMITATIONS: None. FINDINGS: MINERALIZATION: Osteopenia BONES: Chronic healed fracture of the proximal humerus. No identified acute fractures. JOINTS: No dislocation. VISUALIZED LUNGS AND RIBS: No pneumothorax. No rib fracture. SOFT TISSUES: Surgical clips. OTHER: No other significant finding. IMPRESSION: No acute fracture. Chronic fracture of the humerus. TECHNICAL DOCUMENTATION: JOB ID: [id number] [place]- All Rights Reserved Reading location - IP/workstation name: [email or web address]
[2017-11-01 08:34] VITALS: BP 101/66
== END 2017-11-01 08:58 | disposition home or self-care (01) ==
LOC: ER 04:41
DX: G89.4 Chronic pain syndrome (principal); R60.9 Edema, unspecified; M25.511 Pain in right shoulder; M54.2 Cervicalgia; W19.XXXA Unspecified fall, initial encounter; Y92.10 Unspecified residential institution as the place of occurrence of the external cause; I50.9 Heart failure, unspecified; I25.10 Atherosclerotic heart disease of native coronary artery without angina pectoris; E78.00 Pure hypercholesterolemia, unspecified; I11.0 Hypertensive heart disease with heart failure; Z88.6 Allergy status to analgesic agent; Z88.3 Allergy status to other anti-infective agents; Z88.2 Allergy status to sulfonamides; I25.2 Old myocardial infarction; Z87.442 Personal history of urinary calculi; Z95.1 Presence of aortocoronary bypass graft; Z90.710 Acquired absence of both cervix and uterus; Z90.11 Acquired absence of right breast and nipple; Z96.641 Presence of right artificial hip joint; Z96.653 Presence of artificial knee joint, bilateral
CPT/HCPCS: 99285; 73030; 72125; A9270

== ENCOUNTER 2017-11-05 01:06 | Emergency (ER) | payer MEDICARE, MEDICAID ==
[2017-11-05] MEDS ORDERED: HYDROMORPHONE HCL INJ/PF 2 MG/ML AMPULE IM ONE (01:42)
--- NOTE | 2017-11-05 01:48 | ER Document Report ---
ED General - General Chief Complaint: Pain All Over Stated Complaint: PAIN ALL OVER Time Seen by Provider: 11/05/17 01:13 Notes: Patient is a 87-year-old female presents with complaint of pain. She says she has pain all over. It is hard to get her to pinpoint the pain. I have seen her before. She does typically complain of pain and is on chronic pain medicines including fentanyl and Percocet. She was recently seen after a fall. From that fall she now has bruising of her chest and arms. She does have a old right humeral head fracture is approximately 6 months old. This was x- rayed last time she was here she had fallen last time. Is negative. She denies any fall since last time she was seen in the ER. She does mention that she is on antibiotic for UTI. Antibiotic was not on her list of medications therefore called the halfway and they said that she just finished her course of Cipro for UTI. She also was placed back on Lasix because of her ongoing problems with edema. She has chronic edema of her lower extremities and has stress syndrome. Patient denies any recent fevers. No difficulty breathing. No vomiting. Her main complaint at this time is just of chronic pain. TRAVEL OUTSIDE OF THE [place] IN LAST 30 DAYS: No - Related Data Allergies/Adverse Reactions: codeine [Codeine] Allergy (Severe, Verified 09/26/17 19:17) headache bacitracin [From Neosporin ([id number])] Allergy (Verified 09/26/17 19:17) gabapentin Allergy (Verified 09/26/17 19:17) neomycin [From Neosporin ([id number]-npa-falgc)] Allergy (Verified 09/26/17 19:17) polymyxin B [From Neosporin ([id number]-tig-[id number])] Allergy (Verified 09/26/17 19:17) pregabalin [From Lyrica] Allergy (Verified 09/26/17 19:17) Hallucinations Sulfa (Sulfonamide Antibiotics) Allergy (Verified 09/26/17 19:17) itching Past Medical History - Social History Smoking Status: Never Smoker Frequency of alcohol use: None Drug Abuse: None Family History: CAD, CVA, DM, Hyperlipidemia, Hypertension - Past Medical History Cardiac Medical History: Reports: Hx Congestive Heart Failure, Hx Coronary Artery Disease, Hx Heart Attack, Hx Hypercholesterolemia, Hx Hypertension Pulmonary Medical History: Reports: Hx Asthma, Hx Bronchitis, Hx COPD, Hx Pneumonia, Hx Sleep Apnea Neurological Medical History: Denies: Hx Cerebrovascular Accident Endocrine Medical History: Reports: Hx Diabetes Mellitus Type 2, Hx Hyperthyroidism, Hx Hypothyroidism. Denies: Hx Graves' Disease Renal/ Medical History: Reports: Hx Kidney Stones. Denies: Hx Ovarian Cysts, Hx Peritoneal Dialysis, Hx Pelvic Inflammatory Disease Malignancy Medical History: Reports: Hx Breast Cancer GI Medical History: Reports: Hx Gastroesophageal Reflux Disease. Denies: Hx Irritable Bowel, Hx Liver Failure, Hx Pancreatitis, Hx Ulcer Musculoskeltal Medical History: Reports Hx Arthritis, Denies Hx Fibromyalgia, Denies Hx Multiple Sclerosis, Denies Hx Muscular Dystrophy, Reports Hx Musculoskeletal Deformity, Reports Hx Musculoskeletal Trauma Psychiatric Medical History: Reports: Hx Bipolar Disorder, Hx Depression Denies: Hx Schizophrenia Traumatic Medical History: Reports: Hx Fractures - right leg(small break) Infectious Medical History: Past Surgical History: Reports: Hx Adenoidectomy, Hx Appendectomy, Hx Cardiac Catheterization, Hx Cardiac Surgery - Double Bypass, Hx Cholecystectomy, Hx Coronary Artery Bypass Graft - 1996, Hx Hysterectomy, Hx Mastectomy - rt 1994, Hx Orthopedic Surgery - Right Hip replacement, bilateral knee replacements, Hx Tonsillectomy. Denies: Hx Bowel Surgery, Hx Tubal Ligation - Immunizations Immunizations up to date: Yes Hx Diphtheria, Pertussis, Tetanus Vaccination: Yes Hx Pneumococcal Vaccination: 09/07/11 Review of Systems - Review of Systems Notes: My Normal Review Basic REVIEW OF SYSTEMS: CONSTITUTIONAL : Denies fever, chills, or sweats. Denies recent illness. EENT: Denies eye, ear, throat, or mouth pain or symptoms. Denies nasal or sinus congestion. CARDIOVASCULAR: Chest pain conjunction with full body pain. RESPIRATORY: Denies cough, cold, or chest congestion. Denies shortness of breath, difficulty breathing, or wheezing. GASTROINTESTINAL: Denies abdominal pain. Denies nausea, vomiting, or diarrhea. Denies constipation. Last BM: GENITOURINARY: Recent UTI MUSCULOSKELETAL: Chronic extremity swelling. Planes of body pain. SKIN: Denies rash or skin lesions. NEUROLOGICAL: Denies altered mental status or loss of consciousness. Denies headache. Denies weakness or paralysis or loss of use of either side. Denies problems with gait or speech. Denies sensory or motor loss. ALL OTHER SYSTEMS REVIEWED AND NEGATIVE. Physical Exam - Vital signs Vitals: Temp Pulse Resp BP Pulse Ox 98.7 F 99 20 141/65 H 94 11/05/17 01:14 11/05/17 01:14 11/05/17 01:14 11/05/17 01:14 11/05/17 01:14 - Notes Notes: General Appearance: Well nourished, alert, cooperative, no acute distress, moderate obvious discomfort. Vitals: reviewed, See vital signs table. Head: no swelling or tenderness to the head Eyes: PERRL, EOMI, Conjuctiva clear Mouth: No decreasd moisture Lungs: No wheezing, No rales, No rhonci, No accessory muscle use, good air exchange bilaterally. Heart: Normal rate, Regular rythm, No murmur, no rub Abdomen: Normal BS, soft, No rigidity, No abdominal tenderness, No guarding, no rebound, no abdominal masses, no organomegaly Extremities: strength 5/5 in all extremities, good pulses in all extremities, patient is 3+ bilateral lower extremity edema with faint redness throughout the legs which appears to be chronic. In reviewing her previous records this is very typical for presentation. She also has some swelling into her upper extremities as well. Pain with any movement of her right shoulder. Patient has pain almost anywhere you palpate on her extremities. This is even with light palpation. Patient even screamed when the nurse applied a Band-Aid to her arm and said "she pushed too hard". Skin: warm, dry, bruising across chest and extremities. Neuro: speech clear, oriented x 3, normal affect, responds appropriately to questions. Course - Re-evaluation Re-evalutation: 11/05/17 01:47 EKG is reviewed and interpreted by me. EKG shows sinus tachycardia with a heart rate of [address] segment elevation. Very mild ST segment depression in leads I and II which are unchanged comparison to her old EKG from October 26, 2017. NM interval within normal range. QRS duration QTc intervals are prolonged. 11/05/17 03:19 After receiving the pain medication patient says she feels much improved and looks much more comfortable and has no distress or complaints at this time. Initial attempt to obtain a UA was unsuccessful. I did just ultrasound of bladder and she now has a lot of urine in her bladder and therefore will do a straight cath again to obtain a urine for urine sample. 11/05/17 04:57 UA does show evidence of continued tract infection. She was on Cipro before. Will place him on Keflex. We will send urine for culture. Her pain was resolved with the pain medication shot. Pain seems to be chronic. She has not had any new falls or new injuries. On cannot find a reason for any repeat x- rays at this time. Kidney function is normal. I feel the patient safe to be discharged back to halfway. Encouraged to return here if she has fevers, intractable pain, vomiting, or she feels unwell. Dictation of this chart was performed using voice recognition software; therefore, there may be some unintended grammatical errors. - Vital Signs Vital signs: Temp Pulse Resp BP Pulse Ox 98.7 F 80 22 H 131/97 H 96 11/05/17 01:14 11/05/17 01:19 11/05/17 04:31 11/05/17 01:33 11/05/17 04:31 - Laboratory Result Diagrams: 11/05/17 01:45 11/05/17 01:45 Laboratory results interpreted by me: 11/05/17 11/05/17 11/05/17 01:45 01:45 03:18 WBC 10.9 H Hgb 10.9 L Hct 33.8 L MCH 26.8 L RDW 16.8 H Lymphocytes % 12.7 L Eosinophils % 17.2 H Absolute Eosinophils 1.9 H Carbon Dioxide 31 H Est GFR (Non-Af Amer) 58 L Glucose 151 H Urine Nitrite POSITIVE H Ur Leukocyte Esterase MODERATE H Discharge - Discharge Clinical Impression: Chronic pain syndrome UTI (urinary tract infection) Qualifiers: Urinary tract infection type: site unspecified Hematuria presence: without hematuria Qualified Code(s): N39.0 - Urinary tract infection, site not specified Condition: Good Disposition: HOME, SELF-CARE Additional Instructions: Your urinalysis shows that you still have evidence of a UTI. We will place you on an antibiotic and send your urine for culture. Please continue to take your Lasix as prescirbed. please follow up with Dr. Fitch in 2-3 days for close reevaluation. Please return to the ER immediately if you have fevers, vomiting, diarrhea, or feel unwell. Prescriptions: Cephalexin Monohydrate [Keflex 500 mg Capsule] 500 mg PO BID #14 capsule
[2017-11-05 02:04] LABS: ABSOLUTE EOSINOPHILS # (AUTO) 1.9 10^3/uL (0.0-0.6); ABSOLUTE LYMPHOCYTES (AUTO) 1.4 10^3/uL (0.5-4.7); ABSOLUTE MONOCYTES (AUTO) 0.6 10^3/uL (0.1-1.4); BASOPHILS % (AUTO) 0.4 % (0-2); EOSINOPHILS % (AUTO) 17.2 % (0-6); HEMATOCRIT 33.8 % (36.0-47.0); HEMOGLOBIN 10.9 g/dL (12.0-15.5); LYMPHOCYTES % (AUTO) 12.7 % (13-45); MEAN CORPUSCULAR HEMOGLOBIN 26.8 pg (27.0-33.4); MEAN CORPUSCULAR HGB CONC 32.3 g/dL (32.0-36.0); MEAN CORPUSCULAR VOLUME 83 fl (80-97); MONOCYTES % (AUTO) 5.8 % (3-13); PLATELET COUNT 307 10^3/uL (150-450); RED BLOOD COUNT 4.08 10^6/uL (3.72-5.28); RED CELL DISTRIBUTION WIDTH 16.8 % (11.5-14.0); SEGMENTED NEUTROPHILS % (AUTO) 63.9 % (42-78); TOTAL CELLS COUNTED % (AUTO) 100 %; WHITE BLOOD COUNT 10.9 10^3/uL (4.0-10.5)
[2017-11-05 02:24] LABS: ANION GAP 11 (5-19); BLOOD UREA NITROGEN 18 mg/dL (7-20); CALCIUM 8.6 mg/dL (8.4-10.2); CARBON DIOXIDE 31 mmol/L (22-30); CHLORIDE 100 mmol/L (98-107); GLUCOSE 151 mg/dL (75-110)
[2017-11-05 03:36] LABS: APPEARANCE,URINE SLIGHTLY-CLOUDY; BILIRUBIN,URINE NEGATIVE (NEGATIVE); COLOR,URINE YELLOW; GLUCOSE, URINE NEGATIVE (NEGATIVE); KETONES,URINE NEGATIVE (NEGATIVE); LEUKOCYTE ESTERASE,URINE MODERATE (NEGATIVE); NITRITE,URINE POSITIVE (NEGATIVE); PROTEIN,URINE NEGATIVE (NEGATIVE); URINE SPECIFIC GRAVITY 1.011; UROBILINOGEN,URINE NEGATIVE mg/dL (<2.0)
[2017-11-05] MEDS ORDERED: CEPHALEXIN 500 MG CAPSULE PO ONE (04:06)
[2017-11-05 05:05] VITALS: BP 162/98
--- NOTE | 2017-11-05 08:42 | EKG REPORT ---
SEVERITY:- ABNORMAL ECG - SINUS TACHYCARDIA NONSPECIFIC INTRAVENTRICULAR CONDUCTION DELAY CONSIDER ANTERIOR INFARCT VS LVH MINIMAL ST DEPRESSION, LATERAL LEADS : Confirmed by: Caitlin Castanon 05-Nov-2017 08:42:35
== END 2017-11-05 05:05 | disposition home or self-care (01) ==
LOC: ER 01:06
DX: G89.4 Chronic pain syndrome (principal); Z79.891 Long term (current) use of opiate analgesic; R00.0 Tachycardia, unspecified; N39.0 Urinary tract infection, site not specified; I25.10 Atherosclerotic heart disease of native coronary artery without angina pectoris; J44.9 Chronic obstructive pulmonary disease, unspecified; E11.9 Type 2 diabetes mellitus without complications; I11.0 Hypertensive heart disease with heart failure; I50.9 Heart failure, unspecified; Z79.899 Other long term (current) drug therapy; Z85.3 Personal history of malignant neoplasm of breast; Z88.5 Allergy status to narcotic agent; Z88.6 Allergy status to analgesic agent; Z88.8 Allergy status to other drugs, medicaments and biological substances; Z88.2 Allergy status to sulfonamides; Z95.1 Presence of aortocoronary bypass graft; Z91.81 History of falling
CPT/HCPCS: 93005; 99285; 96372; 51701; 36415; 87086; 85025; 87088; 80048; 81001; 87186; 93010; A9270; J1170

== ENCOUNTER 2017-11-05 23:18 | Emergency (ER) | payer MEDICARE, MEDICAID ==
--- NOTE | 2017-11-06 00:04 | ER Document Report ---
ED General - General Chief Complaint: Arm Problem Stated Complaint: ARM SWELLING Time Seen by Provider: 11/05/17 23:47 Notes: Patient is an 87 year old female that comes to the ED for chief complaint of pains in her arms and not having a bowel movement for the past 4 days with some abdominal cramping. She denies vomiting, fever. She is on Keflex for a UTI, was started on this last night. She had a recent fall and was diagnosed with a humeral and clavicle fracture per patient, patient denies falling again. TRAVEL OUTSIDE OF THE [place] IN LAST 30 DAYS: No - Related Data Allergies/Adverse Reactions: codeine [Codeine] Allergy (Severe, Verified 09/26/17 19:17) headache bacitracin [From Neosporin ([id number])] Allergy (Verified 09/26/17 19:17) gabapentin Allergy (Verified 09/26/17 19:17) neomycin [From Neosporin ([id number])] Allergy (Verified 09/26/17 19:17) polymyxin B [From Neosporin ([id number])] Allergy (Verified 09/26/17 19:17) pregabalin [From Lyrica] Allergy (Verified 09/26/17 19:17) Hallucinations Sulfa (Sulfonamide Antibiotics) Allergy (Verified 09/26/17 19:17) itching Past Medical History - General Information source: Patient - Social History Smoking Status: Never Smoker Chew tobacco use (# tins/day): No Frequency of alcohol use: None Drug Abuse: None Lives with: Family Family History: CAD, CVA, DM, Hyperlipidemia, Hypertension Patient has suicidal ideation: No Patient has homicidal ideation: No - Past Medical History Cardiac Medical History: Reports: Hx Congestive Heart Failure, Hx Coronary Artery Disease, Hx Heart Attack, Hx Hypercholesterolemia, Hx Hypertension Pulmonary Medical History: Reports: Hx Asthma, Hx Bronchitis, Hx COPD, Hx Pneumonia, Hx Sleep Apnea Neurological Medical History: Denies: Hx Cerebrovascular Accident Endocrine Medical History: Reports: Hx Diabetes Mellitus Type 2, Hx Hyperthyroidism, Hx Hypothyroidism. Denies: Hx Graves' Disease Renal/ Medical History: Reports: Hx Kidney Stones. Denies: Hx Ovarian Cysts, Hx Peritoneal Dialysis, Hx Pelvic Inflammatory Disease Malignancy Medical History: Reports: Hx Breast Cancer GI Medical History: Reports: Hx Gastroesophageal Reflux Disease. Denies: Hx Irritable Bowel, Hx Liver Failure, Hx Pancreatitis, Hx Ulcer Musculoskeltal Medical History: Reports Hx Arthritis, Denies Hx Fibromyalgia, Denies Hx Multiple Sclerosis, Denies Hx Muscular Dystrophy, Reports Hx Musculoskeletal Deformity, Reports Hx Musculoskeletal Trauma Psychiatric Medical History: Reports: Hx Bipolar Disorder, Hx Depression Denies: Hx Schizophrenia Traumatic Medical History: Reports: Hx Fractures - right leg(small break) Infectious Medical History: Past Surgical History: Reports: Hx Adenoidectomy, Hx Appendectomy, Hx Cardiac Catheterization, Hx Cardiac Surgery - Double Bypass, Hx Cholecystectomy, Hx Coronary Artery Bypass Graft - 1996, Hx Hysterectomy, Hx Mastectomy - rt 1994, Hx Orthopedic Surgery - Right Hip replacement, bilateral knee replacements, Hx Tonsillectomy. Denies: Hx Bowel Surgery, Hx Tubal Ligation - Immunizations Immunizations up to date: Yes Hx Diphtheria, Pertussis, Tetanus Vaccination: Yes Hx Pneumococcal Vaccination: 09/07/11 Review of Systems - Review of Systems Constitutional: No symptoms reported EENT: No symptoms reported Cardiovascular: No symptoms reported Respiratory: No symptoms reported Gastrointestinal: See HPI Genitourinary: No symptoms reported Female Genitourinary: No symptoms reported Musculoskeletal: See HPI Skin: No symptoms reported Hematologic/Lymphatic: No symptoms reported Neurological/Psychological: No symptoms reported Physical Exam - Notes Notes: GENERAL: Alert, interacts well. No acute distress. HEAD: Normocephalic, atraumatic. EYES: Pupils equal, round, and reactive to light. Extraocular movements intact. ENT: Oral mucosa moist, tongue midline. [Nares patent, no nasal septal hematoma , TM's intact.] NECK: Full range of motion. Supple. Trachea midline. LUNGS: Clear to auscultation bilaterally, no wheezes, rales, or rhonchi. No respiratory distress. HEART: Regular rate and rhythm. No murmur ABDOMEN: Nontender abdomen throughout. No guarding. Non-distended. Bowel sounds present in all 4 quadrants. EXTREMITIES: Chronic skin discoloration and edema in both legs, excoriations all over the limbs, no overt areas of erythema, abnormal heat, induration, or fluctuance. Normal distal neurovascular exam. BACK: no cervical, thoracic, lumbar midline tenderness. No saddle anesthesia, normal distal neurovascular exam. NEUROLOGICAL: Alert and oriented x3. Normal speech. [cranial nerves II through XII grossly intact]. PSYCH: Normal affect, normal mood. SKIN: Warm, dry. Course - Re-evaluation Re-evalutation: Abdominal exam is unremarkable. Other than itching patient is actually well- appearing, conversational. No signs of new trauma, patient denies any trauma. Vital signs unremarkable. CBC shows eosinophilia similar to prior, chemistry unremarkable, acute abdominal series does not show obstruction or concerning findings, shows some retained stool. Placing patient on stool softener, discussed results with patient, patient remains unchanged on reevaluation, patient will be discharged back home with recommendations for itching when she is complaining about, her abdomen, and discussed return precautions. Patient does state understanding and agreement. - Laboratory Result Diagrams: 11/06/17 00:50 11/06/17 00:50 Laboratory results interpreted by me: 11/06/17 11/06/17 00:50 00:50 Hgb 10.6 L Hct 32.7 L RDW 16.8 H Eosinophils % 19.9 H Absolute Eosinophils 1.9 H Carbon Dioxide 33 H Glucose 148 H Calcium 8.3 L AST 37 H Total Protein 5.8 L Albumin 3.1 L Discharge - Discharge Clinical Impression: Skin pruritus, Abdominal cramping Right shoulder pain Qualifiers: Chronicity: acute Qualified Code(s): M25.511 - Pain in right shoulder Condition: Stable Disposition: HOME, SELF-CARE Additional Instructions: Your imaging shows some retained stool but no concerning findings otherwise. Take stool softener as prescribed for the next several days as prescribed. 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 Discuss with your provider for possible steroids for this. Return to the ED for any concerning symptoms - vomiting, fever, passing out, or any other concerning symptoms. Prescriptions: Polyethylene Glycol 3350 [Miralax Powder 17 gm/Packet] 1 packet PO DAILY #1 pkg
[2017-11-06 01:11] LABS: ABSOLUTE BASOPHILS # (AUTO) 0.1 10^3/uL (0.0-0.2); ABSOLUTE EOSINOPHILS # (AUTO) 1.9 10^3/uL (0.0-0.6); ABSOLUTE LYMPHOCYTES (AUTO) 1.3 10^3/uL (0.5-4.7); ABSOLUTE MONOCYTES (AUTO) 0.6 10^3/uL (0.1-1.4); ABSOLUTE NEUT (AUTO) 5.6 10^3/uL (1.7-8.2); BASOPHILS % (AUTO) 0.5 % (0-2); EOSINOPHILS % (AUTO) 19.9 % (0-6); HEMATOCRIT 32.7 % (36.0-47.0); HEMOGLOBIN 10.6 g/dL (12.0-15.5); LYMPHOCYTES % (AUTO) 14.3 % (13-45); MEAN CORPUSCULAR HGB CONC 32.3 g/dL (32.0-36.0); MEAN CORPUSCULAR VOLUME 84 fl (80-97); PLATELET COUNT 293 10^3/uL (150-450); RED BLOOD COUNT 3.91 10^6/uL (3.72-5.28); RED CELL DISTRIBUTION WIDTH 16.8 % (11.5-14.0); SEGMENTED NEUTROPHILS % (AUTO) 59.3 % (42-78); TOTAL CELLS COUNTED % (AUTO) 100 %; WHITE BLOOD COUNT 9.5 10^3/uL (4.0-10.5)
[2017-11-06 01:41] LABS: ALANINE AMINOTRANSFERASE 27 U/L (9-52); ALBUMIN 3.1 g/dL (3.5-5.0); ALKALINE PHOSPHATASE 63 U/L (38-126); ANION GAP 9 (5-19); ASPARTATE AMINO TRANSFERASE 37 U/L (14-36); BILIRUBIN,DIRECT 0.3 mg/dL (0.0-0.4); BILIRUBIN,TOTAL 0.4 mg/dL (0.2-1.3); BLOOD UREA NITROGEN 16 mg/dL (7-20); CALCIUM 8.3 mg/dL (8.4-10.2); CARBON DIOXIDE 33 mmol/L (22-30); CHLORIDE 101 mmol/L (98-107); GLUCOSE 148 mg/dL (75-110); POTASSIUM 3.7 mmol/L (3.6-5.0); SODIUM 143.3 mmol/L (137-145); TOTAL PROTEIN 5.8 g/dL (6.3-8.2)
[2017-11-06] MEDS ORDERED: MORPHINE SULFATE 10 MG/ML INJ IV ONE (02:43)
[2017-11-06] MEDS ORDERED: LORAZEPAM 0.5 MG TABLET PO ONE (02:43)
--- NOTE | 2017-11-06 02:43 | RADIOLOGY REPORT (SQ) ---
EXAM DESCRIPTION: Abdominal series CLINICAL HISTORY: mid abd pain, no recent bowel movement COMPARISON: None. FINDINGS: Single view of the chest with upright spine views of the abdomen. Prior median sternotomy. Cardiomegaly. Atherosclerotic calcification and tortuosity of the thoracic aorta. Postoperative change of the right axillary region. Low lung volumes. No consolidation, pneumothorax, or pleural effusion. Remote right humeral fracture. Degenerative change of the shoulders. Moderate amount stool predominantly in the ascending colon. Prior cholecystectomy. No dilated loops of large or small bowel identified. Bilateral hip arthroplasties. Degenerative change of the spine. No definite acute osseous abnormality. No definite organomegaly. IMPRESSION: 1. Cardiomegaly. No acute pulmonary process. 2. Nonobstructive bowel gas pattern. Moderate amount of stool predominantly in the ascending colon.
[2017-11-06 07:44] VITALS: BP 150/66
== END 2017-11-06 07:15 | disposition home or self-care (01) ==
LOC: ER 23:18
DX: M25.511 Pain in right shoulder (principal); S42.309A Unspecified fracture of shaft of humerus, unspecified arm, initial encounter for closed fracture; S42.009A Fracture of unspecified part of unspecified clavicle, initial encounter for closed fracture; W19.XXXA Unspecified fall, initial encounter; N39.0 Urinary tract infection, site not specified; K59.00 Constipation, unspecified; L29.9 Pruritus, unspecified; I10 Essential (primary) hypertension; R60.0 Localized edema; R10.9 Unspecified abdominal pain; J44.9 Chronic obstructive pulmonary disease, unspecified; E11.9 Type 2 diabetes mellitus without complications; Z88.5 Allergy status to narcotic agent; Z88.8 Allergy status to other drugs, medicaments and biological substances; Z88.2 Allergy status to sulfonamides; Z88.6 Allergy status to analgesic agent; I25.10 Atherosclerotic heart disease of native coronary artery without angina pectoris; I25.2 Old myocardial infarction; Z85.3 Personal history of malignant neoplasm of breast; Z95.1 Presence of aortocoronary bypass graft
CPT/HCPCS: 99284; 36415; 85025; 80053; 74022; A9270

== ENCOUNTER 2017-11-28 21:27 | Emergency (ER) | payer MEDICARE, MEDICAID ==
[2017-11-28] MEDS ORDERED: ASPIRIN 81 MG TABLET, CHEWABLE PO ONE (21:36)
[2017-11-28] MEDS ORDERED: ACETAMINOPHEN 325 MG TABLET PO ONE (21:39)
[2017-11-28] MEDS ORDERED: ACETAMINOPHEN 325 MG SUPP.RECT PR ONE (21:48)
--- NOTE | 2017-11-28 21:54 | ER Document Report ---
ED General - General Mode of Arrival: Medic Information source: Patient TRAVEL OUTSIDE OF THE [place] IN LAST 30 DAYS: No <JASWANT KELLEY - Last Filed: 11/29/17 02:50> <NERY JARAMILLO - Last Filed: 11/29/17 03:25> - General Stated Complaint: SHORTNESS OF BREATH Time Seen by Provider: 11/28/17 21:36 Notes: Patient is an 87 year old female with CHF, COPD, HTN, asthma and a history of [place] presents to the emergency department via EMS for altered mental status and shortness of breath. At bedside patient does not respond to auditory stimuli or physical contact. Nurse states EMS was called for the patient having shortness of breath. Staff at patients living facility states the patient is normally alert and oriented x4. (JASWANT KELLEY) - Related Data Allergies/Adverse Reactions: codeine [Codeine] Allergy (Severe, Verified 09/26/17 19:17) headache bacitracin [From Neosporin ([id number])] Allergy (Verified 09/26/17 19:17) gabapentin Allergy (Verified 09/26/17 19:17) neomycin [From Neosporin ([id number]-[id number])] Allergy (Verified 09/26/17 19:17) polymyxin B [From Neosporin ([id number]-mip-[id number])] Allergy (Verified 09/26/17 19:17) pregabalin [From Lyrica] Allergy (Verified 09/26/17 19:17) Hallucinations Sulfa (Sulfonamide Antibiotics) Allergy (Verified 09/26/17 19:17) itching Past Medical History - General Information source: Emergency Med Personnel - Social History Smoking Status: Unknown if Ever Smoked Family History: CAD, CVA, DM, Hyperlipidemia, Hypertension - Past Medical History Cardiac Medical History: Reports: Hx Congestive Heart Failure, Hx Coronary Artery Disease, Hx Heart Attack, Hx Hypercholesterolemia, Hx Hypertension Pulmonary Medical History: Reports: Hx Asthma, Hx Bronchitis, Hx COPD, Hx Pneumonia, Hx Sleep Apnea Neurological Medical History: Endocrine Medical History: Reports: Hx Diabetes Mellitus Type 2, Hx Hyperthyroidism, Hx Hypothyroidism Renal/ Medical History: Reports: Hx Kidney Stones Malignancy Medical History: Reports: Hx Breast Cancer GI Medical History: Reports: Hx Gastroesophageal Reflux Disease Musculoskeltal Medical History: Reports Hx Arthritis, Reports Hx Musculoskeletal Deformity, Reports Hx Musculoskeletal Trauma Psychiatric Medical History: Reports: Hx Bipolar Disorder, Hx Depression Traumatic Medical History: Reports: Hx Fractures - right leg(small break) Infectious Medical History: Past Surgical History: Reports: Hx Adenoidectomy, Hx Appendectomy, Hx Cardiac Catheterization, Hx Cardiac Surgery - Double Bypass, Hx Cholecystectomy, Hx Coronary Artery Bypass Graft - 1996, Hx Hysterectomy, Hx Mastectomy - rt 1994, Hx Orthopedic Surgery - Right Hip replacement, bilateral knee replacements, Hx Tonsillectomy - Immunizations Immunizations up to date: Yes Hx Diphtheria, Pertussis, Tetanus Vaccination: Yes Hx Pneumococcal Vaccination: 09/07/11 <JASWANT KELLEY - Last Filed: 11/29/17 02:50> Review of Systems - Review of Systems -: Yes ROS unobtainable due to patient's medical condition - Per nurses note Constitutional: No symptoms reported EENT: No symptoms reported Cardiovascular: No symptoms reported Respiratory: See HPI, Short of breath Gastrointestinal: No symptoms reported Genitourinary: No symptoms reported Female Genitourinary: No symptoms reported Musculoskeletal: No symptoms reported Skin: No symptoms reported Hematologic/Lymphatic: No symptoms reported Neurological/Psychological: No symptoms reported -: Yes All other systems reviewed and negative <JASWANT KELLEY - Last Filed: 11/29/17 02:50> Physical Exam - HEENT Head: Normocephalic, Atraumatic <JASWANT KELLEY - Last Filed: 11/29/17 02:50> - Vital signs Interpretation: Hypoxic, Febrile - General General appearance: Lethargic In distress: Moderate - Respiratory Breath sounds: Decreased air movement, Rales - at bases - Cardiovascular Rhythm: Regular - Abdominal Inspection: Normal, Obese Tenderness: Nontender - Back Back: Normal - Extremities General upper extremity: Nontender General lower extremity: Edema - with erythema b/l - Neurological Bea[place]ont Coma Scale Eye Opening: To Pain [place] Coma Scale Verbal: Incomprehensible Manjinder Coma Scale Motor: Localizes to Pain Bea[place]ont Coma Scale Total: 9 - Psychological Associated symptoms: Confused - Skin Skin Temperature: Hot <NERY JARAMILLO - Last Filed: 11/29/17 03:25> - Vital signs Vitals: Resp 27 H 11/28/17 21:36 Course - Laboratory Result Diagrams: 11/28/17 22:08 11/28/17 22:08 <JASWANT KELLEY - Last Filed: 11/29/17 02:50> - Laboratory Result Diagrams: 11/28/17 22:08 11/28/17 22:08 <NERY JARAMILLO - Last Filed: 11/29/17 03:25> - Re-evaluation Re-evalutation: 11/28/17 22:56 Went to recheck patient, staff currently placing catheter. 11/28/17 23:[address] Fitch who confirmed the patient is currently on hospice. (JASWANT KELLEY) Patient is an 87-year-old female who is brought in for altered mental status, fever, productive cough, and decreased oxygen saturation. Patient had a workup here and fever 103 was treated. Patient has leukocytosis. Antibiotics were initiated and her primary care doctors called for admission. Dr. Holland informed me that this patient is a hospice patient who is to be palliative care. States that he never gave a telephone order to transfer the patient to the hospital. Called the primary who tells me that the patient is indeed palliative care. Therefore I will be sending her back and she is to follow-up with the palliative care team there. It is unfortunate that the patient was sent to the emergency department if she did not want any treatment or further transport. (NERY JARAMILLO) - Vital Signs Vital signs: Temp Pulse Resp BP Pulse Ox 101.4 F H 20 126/49 H 92 11/29/17 02:21 11/29/17 02:21 11/29/17 02:21 11/29/17 02:21 - Laboratory Laboratory results interpreted by me: 11/28/17 11/28/17 11/28/17 22:08 22:08 22:08 WBC 16.6 H Hgb 11.2 L Hct 34.7 L RDW 16.1 H Seg Neuts % (Manual) 87 H Lymphocytes % (Manual) 4 L Monocytes % (Manual) 2 L Abs Neuts (Manual) 15.1 H Glucose 187 H POC Glucose NT-Pro-B Natriuret Pep 4930 H Urine Ketones Urine Blood 11/28/17 11/28/17 23:00 23:19 WBC Hgb Hct RDW Seg Neuts % (Manual) Lymphocytes % (Manual) Monocytes % (Manual) Abs Neuts (Manual) Glucose POC Glucose 223 H NT-Pro-B Natriuret Pep Urine Ketones 20 H Urine Blood MODERATE H Discharge <JASWANT KELLEY - Last Filed: 11/29/17 02:50> <NERY JARAMILLO - Last Filed: 11/29/17 03:25> - Discharge Clinical Impression: Pneumonia Qualifiers: Pneumonia type: due to unspecified organism Laterality: unspecified laterality Lung location: lower lobe of lung Qualified Code(s): J18.1 - Lobar pneumonia, unspecified organism Fever Qualifiers: Fever type: unspecified Qualified Code(s): R50.9 - Fever, unspecified Condition: Stable Disposition: SNF-Other Instructions: Pneumonia ([facility]) Additional Instructions: Please have the palliative care team follow-up with this patient. Prescriptions: Levofloxacin [Levaquin 750 mg Tablet] 750 mg PO DAILY #10 tablet Scribe Attestation: 11/29/17 03:25 I personally performed the services described in the documentation, reviewed and edited the documentation which was dictated to the scribe in my presence, and it accurately records my words and actions. (NERY JARAMILLO) Scribe Documentation - Scribe Written by Sonalibe:: Migue Kay, 11/28/2017 22:06 acting as scribe for :: Prosper <JASWANT KELLEY - Last Filed: 11/29/17 02:50>
[2017-11-28 22:25] LABS: VENOUS BLOOD BASE EXCESS 1.8 mmol/L; VENOUS BLOOD HCO3 28.5 mmol/L (20-32); VENOUS BLOOD PCO2 52.6 mmHg (35-63); VENOUS BLOOD PH 7.35 (7.30-7.42)
[2017-11-28 22:26] LABS: HEMATOCRIT 34.7 % (36.0-47.0); HEMOGLOBIN 11.2 g/dL (12.0-15.5); MEAN CORPUSCULAR HEMOGLOBIN 27.5 pg (27.0-33.4); MEAN CORPUSCULAR HGB CONC 32.3 g/dL (32.0-36.0); MEAN CORPUSCULAR VOLUME 85 fl (80-97); PLATELET COUNT 248 10^3/uL (150-450); RED BLOOD COUNT 4.08 10^6/uL (3.72-5.28); RED CELL DISTRIBUTION WIDTH 16.1 % (11.5-14.0); WHITE BLOOD COUNT 16.6 10^3/uL (4.0-10.5)
[2017-11-28 22:35] LABS: PROTHROMBIN TIME 14.7 SEC (11.4-15.4)
--- NOTE | 2017-11-28 22:36 | RADIOLOGY REPORT (SQ) ---
EXAM DESCRIPTION: Single view of the chest CLINICAL HISTORY: SOB COMPARISON: 09/26/2017 FINDINGS: Single frontal view of the chest. Prior median sternotomy. Atherosclerotic calcification of the aortic arch. Heart is not enlarged. Low lung volumes. Postoperative change of the right axillary region. No consolidation, pneumothorax, or pleural effusion. Remote right humerus injury is stable. Degenerative change of the left shoulder. Degenerative change of the spine. Upper abdominal soft tissues are unremarkable. IMPRESSION: 1. No acute pulmonary process identified.
[2017-11-28 22:39] LABS: ALANINE AMINOTRANSFERASE 23 U/L (9-52); ALBUMIN 3.8 g/dL (3.5-5.0); ALKALINE PHOSPHATASE 104 U/L (38-126); ANION GAP 11 (5-19); ASPARTATE AMINO TRANSFERASE 26 U/L (14-36); BILIRUBIN,DIRECT 0.4 mg/dL (0.0-0.4); BILIRUBIN,TOTAL 0.9 mg/dL (0.2-1.3); BLOOD UREA NITROGEN 19 mg/dL (7-20); CALCIUM 9.3 mg/dL (8.4-10.2); CARBON DIOXIDE 28 mmol/L (22-30); CHLORIDE 100 mmol/L (98-107); CREATINE KINASE 51 U/L (30-135); GLUCOSE 187 mg/dL (75-110); POTASSIUM 4.2 mmol/L (3.6-5.0); SODIUM 138.9 mmol/L (137-145); TOTAL PROTEIN 6.6 g/dL (6.3-8.2)
--- NOTE | 2017-11-28 22:39 | EKG REPORT ---
SEVERITY:- OTHERWISE NORMAL ECG - SINUS RHYTHM LOW VOLTAGE IN FRONTAL LEADS : Confirmed by: Dora Gonzalez MD 28-Nov-2017 22:39:16
[2017-11-28 22:51] LABS: CREATINE KINASE MB 1.08 ng/mL (<4.55); NT PRO BNP 4930 pg/mL (<450)
[2017-11-28 22:52] LABS: TROPONIN I < 0.012 ng/mL
[2017-11-28 22:54] LABS: ABSOLUTE LYMPHOCYTES# (MANUAL) 0.7 10^3/uL (0.5-4.7); ABSOLUTE MONOCYTES # (MANUAL) 0.3 10^3/uL (0.1-1.4); ABSOLUTE NEUTROPHILS# (MANUAL) 15.1 10^3/uL (1.7-8.2); BAND NEUTROPHILS % (MANUAL) 4 % (3-5); BASOPHILS % (MANUAL) 0 % (0-2); EOSINOPHILS % (MANUAL) 3 % (0-6); LYMPHOCYTES % (MANUAL) 4 % (13-45); MONOCYTES % (MANUAL) 2 % (3-13); SEGMENTED NEUTROPHILS % (MAN) 87 % (42-78); TOTAL CELLS COUNTED 100
[2017-11-28 22:55] LABS: POLYCHROMASIA SLIGHT
[2017-11-28 22:56] LABS: ANISOCYTOSIS SLIGHT; HYPOCHROMASIA SLIGHT; PLATELET COMMENT ADEQUATE
[2017-11-28] MEDS ORDERED: CEFTRIAXONE 1 GM/D5W RTU 1 GM/50 ML RTUPB IV ONE (23:01)
[2017-11-28 23:18] LABS: APPEARANCE,URINE SLIGHTLY-CLOUDY; BILIRUBIN,URINE NEGATIVE (NEGATIVE); COLOR,URINE YELLOW; GLUCOSE, URINE NEGATIVE (NEGATIVE); KETONES,URINE 20 mg/dL (NEGATIVE); LEUKOCYTE ESTERASE,URINE NEGATIVE (NEGATIVE); NITRITE,URINE NEGATIVE (NEGATIVE); PROTEIN,URINE NEGATIVE (NEGATIVE); URINE SPECIFIC GRAVITY 1.015; UROBILINOGEN,URINE NEGATIVE mg/dL (<2.0)
[2017-11-29] MEDS ORDERED: LEVOFLOXACIN 750 MG/D5W RTU 750 MG/150 ML RTUPB IV ONE (00:15)
[2017-11-29 02:24] VITALS: BP 126/49
== END 2017-11-29 03:07 ==
LOC: ER 21:27
DX: R06.02 Shortness of breath (principal); I50.9 Heart failure, unspecified; J44.9 Chronic obstructive pulmonary disease, unspecified; I11.0 Hypertensive heart disease with heart failure; I25.2 Old myocardial infarction; Z88.6 Allergy status to analgesic agent; Z88.3 Allergy status to other anti-infective agents; Z88.2 Allergy status to sulfonamides; Z85.3 Personal history of malignant neoplasm of breast; Z87.442 Personal history of urinary calculi; Z95.1 Presence of aortocoronary bypass graft; Z90.49 Acquired absence of other specified parts of digestive tract; Z96.641 Presence of right artificial hip joint
CPT/HCPCS: 93005; 99285; 51702; 96365; 96367; 36415; 87040; 87086; 82553; 82962; 82550; 85025; 85610; 87077; 87088; 80053; 81001; 84484; 87186; 82803; 83605; 83880; 71045; 93010; A9270; J0696; J1956; J3490

== ENCOUNTER 2018-01-26 09:03 | Emergency (ER) | payer MEDICARE, MEDICAID ==
--- NOTE | 2018-01-26 09:47 | ER Document Report ---
ED General - General Chief Complaint: Fall Stated Complaint: FALL/HEAD PAIN Time Seen by Provider: 01/26/18 09:33 TRAVEL OUTSIDE OF THE [place] IN LAST 30 DAYS: No - HPI Notes: Patient is an 87-year-old female with a history of hypothyroidism, left arm fracture, chronic pain, hyperlipidemia, type 2 diabetes, anemia, mental health disorder, dementia, COPD who presents to the ED from the custodial with concern of an unwitnessed fall from her wheelchair. EMS states that they were told she was in her wheelchair and was then noted to be on the floor with some bruising to her forehead with swelling. This was an unwitnessed event. Patient states that she was going to try to stand up from her wheelchair when she lost her balance and tipped forward, landing on the floor. Patient states that she did not lose consciousness. She has not had any nausea and vomiting per the staff. Staff states that she is at baseline with her mentation and her behavior without any acute changes noted. Patient states that the only thing that hurts right now is her forehead. Denies any fever, neck pain, changes in vision/speech/mentation/hearing, URI, sore throat, chest pain, palpitations, syncope, cough, shortness of breath, wheeze, dyspnea, abdominal pain, nausea/ vomiting/diarrhea, urinary retention, dysuria, hematuria, muscle paralysis/ weakness. Pt recently received treatment for scabies. - Related Data Allergies/Adverse Reactions: codeine [Codeine] Allergy (Severe, Verified 09/26/17 19:17) headache bacitracin [From Neosporin ([id number])] Allergy (Verified 09/26/17 19:17) gabapentin Allergy (Verified 09/26/17 19:17) neomycin [From Neosporin (olc-jzz-oirdg)] Allergy (Verified 09/26/17 19:17) polymyxin B [From Neosporin (umo-toa-bznlf)] Allergy (Verified 09/26/17 19:17) pregabalin [From Lyrica] Allergy (Verified 09/26/17 19:17) Hallucinations Sulfa (Sulfonamide Antibiotics) Allergy (Verified 09/26/17 19:17) itching Past Medical History - Social History Smoking Status: Unknown if Ever Smoked Family History: CAD, CVA, DM, Hyperlipidemia, Hypertension Patient has suicidal ideation: No Patient has homicidal ideation: No - Past Medical History Cardiac Medical History: Reports: Hx Congestive Heart Failure, Hx Coronary Artery Disease, Hx Heart Attack, Hx Hypercholesterolemia, Hx Hypertension Pulmonary Medical History: Reports: Hx Asthma, Hx Bronchitis, Hx COPD, Hx Pneumonia, Hx Sleep Apnea Neurological Medical History: Denies: Hx Cerebrovascular Accident Endocrine Medical History: Reports: Hx Diabetes Mellitus Type 2, Hx Hyperthyroidism, Hx Hypothyroidism. Denies: Hx Graves' Disease Renal/ Medical History: Reports: Hx Kidney Stones. Denies: Hx Ovarian Cysts, Hx Peritoneal Dialysis, Hx Pelvic Inflammatory Disease Malignancy Medical History: Reports: Hx Breast Cancer GI Medical History: Reports: Hx Gastroesophageal Reflux Disease. Denies: Hx Irritable Bowel, Hx Liver Failure, Hx Pancreatitis, Hx Ulcer Musculoskeletal Medical History: Reports Hx Arthritis, Denies Hx Fibromyalgia, Denies Hx Multiple Sclerosis, Denies Hx Muscular Dystrophy, Reports Hx Musculoskeletal Deformity, Reports Hx Musculoskeletal Trauma Psychiatric Medical History: Reports: Hx Bipolar Disorder, Hx Depression Denies: Hx Schizophrenia Traumatic Medical History: Reports: Hx Fractures - right leg(small break) Infectious Medical History: Past Surgical History: Reports: Hx Adenoidectomy, Hx Appendectomy, Hx Cardiac Catheterization, Hx Cardiac Surgery - Double Bypass, Hx Cholecystectomy, Hx Coronary Artery Bypass Graft - 1996, Hx Hysterectomy, Hx Mastectomy - rt 1994, Hx Orthopedic Surgery - Right Hip replacement, bilateral knee replacements, Hx Tonsillectomy. Denies: Hx Bowel Surgery, Hx Tubal Ligation - Immunizations Immunizations up to date: Yes Hx Diphtheria, Pertussis, Tetanus Vaccination: Yes Hx Pneumococcal Vaccination: 09/07/11 Review of Systems - Review of Systems -: Yes All other systems reviewed and negative - Pt has been answering questions appropriately at this time Physical Exam - Vital signs Vitals: Temp Pulse Resp BP Pulse Ox 98.5 F 98 20 164/66 H 96 01/26/18 09:34 01/26/18 09:34 01/26/18 09:34 01/26/18 09:34 01/26/18 09:34 - Notes Notes: PHYSICAL EXAMINATION: GENERAL: Well-appearing, well-nourished and in no acute distress. A&O. Answers questions appropriately. HEAD: + mild swelling/hematoma to the forehead. + tenderness associated w/o obvious bogginess or step-off. No burns sign. EYES: Pupils equal round and reactive to light, extraocular movements intact, sclera anicteric, conjunctiva are normal. No raccoon eyes/entrapment. no nystagmus. ENT: EAC clear b/l. TM's intact b/l without erythema, fluid, or perforation. Nares patent and without discharge. oropharynx clear without exudates. No tonsilar hypertrophy or erythema. Moist mucous membranes. No sinus tenderness. No hemotympanum/CSF discharge. NECK: Normal range of motion, supple without lymphadenopathy. No rigidity. + mild tenderness to the midline. Chest: No flail chest. equal rise/fall. Non-tender LUNGS: Breath sounds clear to auscultation bilaterally and equal. No wheezes rales or rhonchi. HEART: Regular rate and rhythm without murmurs, rubs, gallops. ABDOMEN: Soft, nontender, nondistended abdomen. No guarding, no rebound. No masses appreciated. Normal bowel sounds present. No CVA tenderness bilaterally. Musculoskeletal: Ext b/l: FROM to passive/active. Strength 5+/5. No focal deficits noted. Back: FROM to passive/active. Strength 5+/5. No vertebral point tenderness, stepoffs, or deformities. Extremities: No cyanosis, clubbing, or edema b/l. Peripheral pulses 2+. Capillary refill less than 2 seconds. NEUROLOGICAL: NIH 0. GCS 15. Cranial nerves grossly intact. Normal speech. Normal sensory, motor exams. Reflexes 2+ b/l. KEN's negative. Pronator drift negative. Heel/white, finger/nose wnl. PSYCH: Normal mood, normal affect. SKIN: scabies type rash noted. Course - Re-evaluation Re-evalutation: 01/26/18 11:00 Patient is an afebrile, well-hydrated, 87-year-old female who presents to the ED with a hematoma to the frontal scalp and an acute UTI. Vitals are acceptable without any significant tachycardia, tachypnea, or hypoxia. PE is otherwise unremarkable for any focal neurological deficits otherwise. Patient is nontoxic-appearing and is tolerating p.o. without difficulties. Tylenol was given p.o. today. First dose of Keflex also given p.o. today. Review of her previous UC's shows klebsiella that is resistant to many PO medications. Her previous just before that was e. coli. Given that her UA is not showing signs of severe infection at this time, we will start her on keflex with close f/u with her PCM. CT scan of the head and cervical spine were grossly unremarkable for acute pathology aside from the hematoma that was noted. CBC, coags, CMP was unremarkable for acute pathology. See urinalysis results. Urine culture is pending. No other labs or imaging warranted at this time based on H&P. Low suspicion for any acute glaucoma, temporal arteritis, meningitis, intracranial hemorrhage, ischemic stroke, or fracture at this time. Patient is aware that this condition can change from initial presentation and that she needs to monitor symptoms closely for any acute changes. I will send her home with a prescription for Keflex. Conservative measures otherwise for symptoms. Recheck with your PCM in 2-3 days. Return to the ED with any worsening/ concerning symptoms otherwise as reviewed in discharge. Patient is in agreement. - Vital Signs Vital signs: Temp Pulse Resp BP Pulse Ox 98.5 F 98 20 164/66 H 96 01/26/18 09:34 01/26/18 09:34 01/26/18 09:34 01/26/18 09:34 01/26/18 09:34 - Laboratory Result Diagrams: 01/26/18 09:44 01/26/18 09:44 Laboratory results interpreted by me: 01/26/18 01/26/18 01/26/18 09:44 09:44 09:44 RDW 15.6 H Sodium 145.7 H Est GFR (Non-Af Amer) 59 L Glucose 149 H Urine Nitrite POSITIVE H Ur Leukocyte Esterase SMALL H Discharge - Discharge Clinical Impression: Acute UTI (urinary tract infection) Head injury Qualifiers: Encounter type: initial encounter Qualified Code(s): S09.90XA - Unspecified injury of head, initial encounter Disposition: HOME, SELF-CARE Instructions: Cephalexin ([facility]), Head Injury Precautions ([facility]), Urinary Tract Infection ([facility]) Additional Instructions: Push fluids (i.e. water, cranberry juice) Proper hygenic technique Keep the skin clean Tylenol/ibuprofen as needed for pain Ice as needed Take medications as directed F/u with your PCM in 2-3 days for a recheck Return to the ED with any worsening symptoms and/or development of fever, headache, chest pain, palpitations, syncope, shortness of breath, trouble breathing, abdominal pain, n/v/d, blood in stool/urine, loss of control of bowel /bladder, urinary retention, or other worsening symptoms that are concerning to you. Prescriptions: Cephalexin Monohydrate [Keflex 500 mg Capsule] 500 mg PO BID #14 capsule Forms: Elevated Blood Pressure Referrals: DENICE MORRIS MD [ACTIVE STAFF] - 01/28/18
[2018-01-26] MEDS ORDERED: ACETAMINOPHEN 325 MG TABLET PO ONE (10:20)
--- NOTE | 2018-01-26 10:37 | RADIOLOGY REPORT (SQ) ---
EXAM DESCRIPTION: CT HEAD WITHOUT COMPLETED DATE/TIME: 01/26/2018 10:16 am REASON FOR STUDY: pain s/p fall COMPARISON: 09/26/2017. TECHNIQUE: Axial images acquired through the brain without intravenous contrast. Images reviewed wi th bone, brain and subdural windows. Images stored on PACS. All CT scanners at this facility use dose modulation, iterative reconstruction, and/or weight based d osing when appropriate to reduce radiation dose to as low as reasonably achievable (ALARA). [facility]: Dose Right [facility]: CareDose [facility]: Dose Right [facility]: Teradose 4D [facility]: [email or web address] RADIATION DOSE: CT Rad equipment meets quality standard of care and radiation dose reduction techniq ues were employed. CTDIvol: 53.2 mGy. DLP: 1017 mGy-cm. mGy. LIMITATIONS: None. FINDINGS: VENTRICLES: Prominent. CEREBRUM: No masses. No hemorrhage. No midline shift. Areas of low density in the white matter mos t likely due to chronic micro-vascular ischemic change. No evidence for acute infarction. CEREBELLUM: No masses. No hemorrhage. No alteration of density. No evidence for acute infarction. EXTRAAXIAL SPACES: Mild age-related involutional change. No fluid collections. No masses. ORBITS AND GLOBE: No intra- or extraconal masses. Normal contour of globe without masses. CALVARIUM: No fracture. PARANASAL SINUSES: Mucosal thickening within the right ethmoid sinus. Minimal mucosal thickening not ed in the right maxillary sinus. SOFT TISSUES: No mass or hematoma. OTHER: Soft tissue hematoma over left frontal region. IMPRESSION: SOFT TISSUE HEMATOMA OVER LEFT FRONTAL REGION. MILD CHRONIC CHANGES OF ATROPHY AND MICR OVASCULAR ISCHEMIA. EVIDENCE OF ACUTE STROKE: NO. TECHNICAL DOCUMENTATION: JOB ID: [id number] Quality ID # [id number]: Final reports with documentation of one or more dose reduction techniques (e.g., Au tomated exposure control, adjustment of the mA and/or kV according to patient size, use of iterative reconstruction technique) 2010 [employer]- All Rights Reserved Reading location - IP/workstation name: [email or web address]
[2018-01-26 10:39] LABS: ABSOLUTE EOSINOPHILS # (AUTO) 0.5 10^3/uL (0.0-0.6); ABSOLUTE MONOCYTES (AUTO) 0.5 10^3/uL (0.1-1.4); ABSOLUTE NEUT (AUTO) 5.8 10^3/uL (1.7-8.2); BASOPHILS % (AUTO) 0.5 % (0-2); EOSINOPHILS % (AUTO) 5.4 % (0-6); HEMATOCRIT 39.6 % (36.0-47.0); HEMOGLOBIN 12.8 g/dL (12.0-15.5); LYMPHOCYTES % (AUTO) 22.5 % (13-45); MEAN CORPUSCULAR HEMOGLOBIN 27.8 pg (27.0-33.4); MEAN CORPUSCULAR HGB CONC 32.4 g/dL (32.0-36.0); MEAN CORPUSCULAR VOLUME 86 fl (80-97); MONOCYTES % (AUTO) 5.6 % (3-13); PLATELET COUNT 269 10^3/uL (150-450); RED BLOOD COUNT 4.62 10^6/uL (3.72-5.28); RED CELL DISTRIBUTION WIDTH 15.6 % (11.5-14.0); TOTAL CELLS COUNTED % (AUTO) 100 %; WHITE BLOOD COUNT 8.8 10^3/uL (4.0-10.5)
[2018-01-26 10:44] LABS: INTERNATIONAL RATION (INR) 0.97; PARTIAL THROMBOPLASTIN TIME 30.9 SEC (23.5-35.8); PROTHROMBIN TIME 13.4 SEC (11.4-15.4)
[2018-01-26 10:48] LABS: APPEARANCE,URINE SLIGHTLY-CLOUDY; BILIRUBIN,URINE NEGATIVE (NEGATIVE); COLOR,URINE YELLOW; GLUCOSE, URINE NEGATIVE (NEGATIVE); KETONES,URINE NEGATIVE (NEGATIVE); LEUKOCYTE ESTERASE,URINE SMALL (NEGATIVE); NITRITE,URINE POSITIVE (NEGATIVE); PROTEIN,URINE NEGATIVE (NEGATIVE); URINE SPECIFIC GRAVITY 1.013; UROBILINOGEN,URINE NEGATIVE mg/dL (<2.0)
--- NOTE | 2018-01-26 10:58 | RADIOLOGY REPORT (SQ) ---
EXAM DESCRIPTION: CT CERVICAL SPINE WITHOUT COMPLETED DATE/TIME: 01/26/2018 10:16 am REASON FOR STUDY: pain s/p fall COMPARISON: None. TECHNIQUE: Axial images acquired through the cervical spine without intravenous contrast. Images re viewed with lung, soft tissue and bone windows. Reconstructed coronal and sagittal MPR images review ed. Images stored on PACS. All CT scanners at this facility use dose modulation, iterative reconstruction, and/or weight based d osing when appropriate to reduce radiation dose to as low as reasonably achievable (ALARA). [facility]: Dose Right [facility]: CareDose [facility]: Dose Right [facility]: Teradose 4D [facility]: [employer] RADIATION DOSE: CT Rad equipment meets quality standard of care and radiation dose reduction techniq ues were employed. CTDIvol: 26.7 mGy. DLP: 565 mGy-cm. mGy. LIMITATIONS: None. FINDINGS: ALIGNMENT: Cervical scoliosis convex left. VERTEBRAL BODIES/DISC: There is evidence of cervical spondylosis prominent at C3-T1. There is evidenc e of dx degenerative anterolisthesis of C6 on C7. C1-C2: No significant spinal stenosis or exit foraminal stenosis. C2-C3: No significant spinal stenosis or exit foraminal stenosis. C3-C4: No significant spinal stenosis or exit foraminal stenosis. Foraminal stenosis bilaterally. F acet arthropathy and hypertrophy. C4-C5: No significant spinal stenosis or exit foraminal stenosis. Foraminal stenosis on the right. C5-C6: No significant spinal stenosis or exit foraminal stenosis. C6-C7: Degenerative spondylosis and degenerative disc disease. Degenerative anterolisthesis of C6 on C7. C7-T1: No significant spinal stenosis or exit foraminal stenosis. FACETS, LATERAL MASSES, POSTERIOR ELEMENTS: Multilevel facet arthropathy and hypertrophy. HARDWARE: None in the spine. VISUALIZED RIBS: No fractures. LUNG APICES AND SOFT TISSUES: No significant or acute findings. OTHER: New sternal wires in place. Old healed fracture deformity of right clavicle at the sternoclav icular junction IMPRESSION: Multilevel cervical spondylosis and facet arthropathy. Degenerative anterolisthesis of C6 on C7 . Old fracture deformity right clavicle at right sternoclavicular junction. TECHNICAL DOCUMENTATION: JOB ID: [id number] Quality ID # [id number]: Final reports with documentation of one or more dose reduction techniques (e.g., Au tomated exposure control, adjustment of the mA and/or kV according to patient size, use of iterative reconstruction technique) 2010 [employer]- All Rights Reserved Reading location - IP/workstation name: [email or web address]
[2018-01-26 11:07] LABS: ALANINE AMINOTRANSFERASE 21 U/L (9-52); ALBUMIN 3.9 g/dL (3.5-5.0); ALKALINE PHOSPHATASE 94 U/L (38-126); ANION GAP 15 (5-19); ASPARTATE AMINO TRANSFERASE 24 U/L (14-36); BILIRUBIN,DIRECT 0.3 mg/dL (0.0-0.4); BILIRUBIN,TOTAL 0.6 mg/dL (0.2-1.3); BLOOD UREA NITROGEN 19 mg/dL (7-20); CALCIUM 9.2 mg/dL (8.4-10.2); CARBON DIOXIDE 29 mmol/L (22-30); CHLORIDE 102 mmol/L (98-107); GLUCOSE 149 mg/dL (75-110); POTASSIUM 3.9 mmol/L (3.6-5.0); SODIUM 145.7 mmol/L (137-145)
[2018-01-26] MEDS ORDERED: CEPHALEXIN 500 MG CAPSULE PO ONE (11:07)
[2018-01-26 12:14] VITALS: BP 172/52
== END 2018-01-26 12:30 ==
LOC: ER 09:03
DX: S00.83XA Contusion of other part of head, initial encounter (principal); W05.0XXA Fall from non-moving wheelchair, initial encounter; Y93.89 Activity, other specified; Y92.129 Unspecified place in nursing home as the place of occurrence of the external cause; N39.0 Urinary tract infection, site not specified; R51 Headache; I25.10 Atherosclerotic heart disease of native coronary artery without angina pectoris; I10 Essential (primary) hypertension; J44.9 Chronic obstructive pulmonary disease, unspecified; E11.9 Type 2 diabetes mellitus without complications; Z88.5 Allergy status to narcotic agent; Z88.3 Allergy status to other anti-infective agents; Z88.6 Allergy status to analgesic agent; Z88.2 Allergy status to sulfonamides; Z85.3 Personal history of malignant neoplasm of breast
CPT/HCPCS: 99285; 51701; 36415; 87086; 85025; 85610; 85730; 87088; 80053; 81001; 87186; 70450; 72125; L0120; A9270 ×2

== ENCOUNTER 2018-05-16 12:35 | Inpatient (IN) | payer MEDICARE, MEDICAID ==
--- NOTE | 2018-05-16 12:46 | ER Document Report ---
ED Fall <SAMSON CARCAMO - Last Filed: 05/16/18 14:31> - General Mode of Arrival: Ambulatory Information source: Patient TRAVEL OUTSIDE OF THE [place] IN LAST 30 DAYS: No <ANJELICA LEE - Last Filed: 05/16/18 14:37> - General Stated Complaint: LEFT KNEE PAIN Time Seen by Provider: 05/16/18 12:38 Notes: A 88-year-old female who presents to the emergency department today with complaints of left lower extremity pain. Patient currently resides at [facility] and was taken out by family today for Thanksgiving. Patient was attempting to go up some steps when she heard an audible pop that was heard by both herself and her daughter from her left knee. Patient complains of left lower extremity pain. (ANJELICA LEE) - Related data Allergies/Adverse Reactions: codeine [Codeine] Allergy (Severe, Verified 09/26/17 19:17) headache bacitracin [From Neosporin ([id number]-rfa-aemmk)] Allergy (Verified 09/26/17 19:17) gabapentin Allergy (Verified 09/26/17 19:17) neomycin [From Neosporin (yro-pse-yzezj)] Allergy (Verified 09/26/17 19:17) polymyxin B [From Neosporin (bqh-tgq-khlks)] Allergy (Verified 09/26/17 19:17) pregabalin [From Lyrica] Allergy (Verified 09/26/17 19:17) Hallucinations Sulfa (Sulfonamide Antibiotics) Allergy (Verified 09/26/17 19:17) itching Past Medical History - General Information source: Patient - Social History Smoking Status: Never Smoker Cigarette use (# per day): No Frequency of alcohol use: None Drug Abuse: None Lives with: Family Family History: Reviewed & Not Pertinent, CAD, CVA, DM, Hyperlipidemia, Hypertension - Past Medical History Cardiac Medical History: Reports: Hx Congestive Heart Failure, Hx Coronary Artery Disease, Hx Heart Attack, Hx Hypercholesterolemia, Hx Hypertension Pulmonary Medical History: Reports: Hx Asthma, Hx Bronchitis, Hx COPD, Hx Pneumonia, Hx Sleep Apnea Neurological Medical History: Endocrine Medical History: Reports: Hx Diabetes Mellitus Type 2, Hx Hyperthyroidism, Hx Hypothyroidism Renal/ Medical History: Reports: Hx Kidney Stones Malignancy Medical History: Reports: Hx Breast Cancer GI Medical History: Reports: Hx Gastroesophageal Reflux Disease Musculoskeletal Medical History: Reports Hx Arthritis, Reports Hx Musculoskeletal Deformity, Reports Hx Musculoskeletal Trauma Psychiatric Medical History: Reports: Hx Bipolar Disorder, Hx Depression Traumatic Medical History: Reports: Hx Fractures - right leg(small break) Infectious Medical History: Past Surgical History: Reports: Hx Adenoidectomy, Hx Appendectomy, Hx Cardiac Catheterization, Hx Cardiac Surgery - Double Bypass, Hx Cholecystectomy, Hx Coronary Artery Bypass Graft - 1996, Hx Hysterectomy, Hx Mastectomy - rt 1994, Hx Orthopedic Surgery - Right Hip replacement, bilateral knee replacements, Hx Tonsillectomy - Immunizations Immunizations up to date: Yes Hx Diphtheria, Pertussis, Tetanus Vaccination: Yes Hx Pneumococcal Vaccination: 09/07/11 <ANJELICA LEE - Last Filed: 05/16/18 14:37> Review of Systems - Review of Systems Constitutional: No symptoms reported EENT: No symptoms reported Cardiovascular: No symptoms reported Respiratory: No symptoms reported Gastrointestinal: No symptoms reported Genitourinary: No symptoms reported Female Genitourinary: No symptoms reported Musculoskeletal: See HPI, Other - left knee pain Skin: No symptoms reported Hematologic/Lymphatic: No symptoms reported Neurological/Psychological: No symptoms reported -: Yes All other systems reviewed and negative <ANJELICA LEE - Last Filed: 05/16/18 14:37> Physical Exam <SAMSON CARCAMO - Last Filed: 05/16/18 14:31> <ANJELICA LEE - Last Filed: 05/16/18 14:37> - Notes Notes: Physical Exam: General: Alert, appears to be in distress secondary to pain. HEENT: Normocephalic. Atraumatic. PERRL. Extraocular movements intact. Oropharynx clear. Neck: Supple. Non-tender. Respiratory: No respiratory distress. Clear and equal breath sounds bilaterally. Cardiovascular: Regular rate and rhythm. Abdominal: Obese. Non-tender. No distension. Normal Bowel Sounds. Back: Non-tender. No deformity or step off. Extremities: Moves all four extremities. Upper extremities: Normal inspection. Normal ROM. Lower extremities: Pelvis is stable, no hip tenderness with palpation. Left distal anterior lateral thigh exquisite tenderness with palpation. Left medial proximal tibia has older bruise which she states happened a few days ago from banging her leg on a wheelchair. Neurological: Normal cognition. AAOx4. Normal speech. Psychological: Anxious. Tearful. Skin: See lower extremity exam (ANJELICA LEE) Course - Diagnostic Test Radiology reviewed: Image reviewed - Displaced spiral fracture of the left distal femur with prior left total hip and left total knee replacements. - EKG Interpretation by Me EKG shows normal: Sinus rhythm, [place], Intervals, ST-T Waves. abnormal: QRS Complexes - Borderline inferior Q waves Rate: Normal - 59 Rhythm: NSR Walford/QRS: IVCD - Consults Dr. Gomez Time consulted: 13:30 Consulted provider: will see as inpatient Dr. Zambrano Time consulted: 13:50 Consulted provider: will see as inpatient <SAMSON CARCAMO - Last Filed: 05/16/18 14:31> Discharge - Discharge Admitting Provider: Amalia Zambrano covering Unit Admitted: Telemetry <SAMSON CARCAMO - Last Filed: 05/16/18 14:31> <ANJELICA LEE - Last Filed: 05/16/18 14:37> - Discharge Clinical Impression: Fracture of distal femur Qualifiers: Encounter type: initial encounter Fracture type: closed Fracture morphology: unspecified fracture morphology Laterality: left Qualified Code(s): S72.402A - Unspecified fracture of lower end of left femur, initial encounter for closed fracture Condition: Stable Disposition: ADMITTED INPATIENT Scribe Attestation: 05/16/18 13:52 I personally performed the services described in the documentation, reviewed and edited the documentation which was dictated to the scribe in my presence, and it accurately records my words and actions. (SAMSON CARCAMO) Scribe Documentation - Scribe Written by Scribe:: Migue Hunter, 05/16/2018 1313 acting as scribe for :: Frantz <ANJELICA LEE - Last Filed: 05/16/18 14:37>
[2018-05-16] MEDS: OXYCODONE-ACETAMINOPHEN 5-325 MG TABLET PO ONE ×2 (12:58→13:31)
--- NOTE | 2018-05-16 13:42 | RADIOLOGY REPORT (SQ) ---
EXAM DESCRIPTION: FEMUR LEFT COMPLETED DATE/TIME: 05/16/2018 1:32 pm REASON FOR STUDY: Distal femur pain and swelling, status post total knee replacement, sudden onset of pain going up stairs COMPARISON: None. NUMBER OF VIEWS: Two views. TECHNIQUE: Two radiographic images acquired of the left femur to include hip and knee in at least on e projection. LIMITATIONS: None. FINDINGS: MINERALIZATION: Osteoporotic BONES: Acute spiral fracture distal left femoral diaphysis. The spiral fracture is just proximal to the femoral component of the total knee replacement. This is best shown on lateral view SOFT TISSUES: Diffuse distal left thigh soft tissue swelling. Left suprapatellar knee joint effusion OTHER: Left proximal femur has a total hip replacement in good alignment. Question left innominate bone fracture at the upper edge of the field of view. AP pelvis film recomm ended for followup IMPRESSION: Acute spiral fracture distal left femoral diaphysis, extending just up to the femoral co mponent of a left total knee replacement Question artifact versus fracture over the left innominate bone at the upper edge of the field of vie w. AP pelvis film recommended. TECHNICAL DOCUMENTATION: JOB ID: [id number] [employer]- All Rights Reserved Reading location - IP/workstation name: [email or web address]
--- NOTE | 2018-05-16 13:44 | RADIOLOGY REPORT (SQ) ---
EXAM DESCRIPTION: KNEE LEFT 2 VIEWS COMPLETED DATE/TIME: 05/16/2018 1:32 pm REASON FOR STUDY: Left knee pain sudden onset of left knee pain going up stairs COMPARISON: None. NUMBER OF VIEWS: Two views. TECHNIQUE: AP and lateral radiographic images acquired of the left knee. LIMITATIONS: None. FINDINGS: MINERALIZATION: Osteoporotic BONES: Acute spiral fracture distal left femoral diaphysis, extending just up to the edge of the femo ral component of total knee replacement. JOINT: Large suprapatellar knee joint effusion SOFT TISSUES: Diffuse soft tissue swelling. No radio-opaque foreign body. OTHER: No other significant finding. IMPRESSION: Acute spiral fracture distal left femoral diaphysis extending just up to the edge of the femoral component of a total knee replacement TECHNICAL DOCUMENTATION: JOB ID: [id number] [employer]- All Rights Reserved Reading location - IP/workstation name: [email or web address]
[2018-05-16] MEDS ORDERED: ONDANSETRON HCL INJ/PF 4 MG/2 ML SDV IV ONE (14:25)
[2018-05-16] MEDS ORDERED: MORPHINE SULFATE 10 MG/ML INJ IV ONE (14:25)
[2018-05-16 14:42] LABS: ABSOLUTE EOSINOPHILS # (AUTO) 0.3 10^3/uL (0.0-0.6); ABSOLUTE LYMPHOCYTES (AUTO) 1.1 10^3/uL (0.5-4.7); ABSOLUTE MONOCYTES (AUTO) 0.4 10^3/uL (0.1-1.4); ABSOLUTE NEUT (AUTO) 7.6 10^3/uL (1.7-8.2); BASOPHILS % (AUTO) 0.4 % (0-2); HEMATOCRIT 38.9 % (36.0-47.0); HEMOGLOBIN 13.2 g/dL (12.0-15.5); LYMPHOCYTES % (AUTO) 11.7 % (13-45); MEAN CORPUSCULAR HEMOGLOBIN 30.7 pg (27.0-33.4); MEAN CORPUSCULAR HGB CONC 33.8 g/dL (32.0-36.0); MEAN CORPUSCULAR VOLUME 91 fl (80-97); MONOCYTES % (AUTO) 4.3 % (3-13); PLATELET COUNT 200 10^3/uL (150-450); RED BLOOD COUNT 4.28 10^6/uL (3.72-5.28); RED CELL DISTRIBUTION WIDTH 14.7 % (11.5-14.0); SEGMENTED NEUTROPHILS % (AUTO) 80.6 % (42-78); TOTAL CELLS COUNTED % (AUTO) 100 %; WHITE BLOOD COUNT 9.5 10^3/uL (4.0-10.5)
[2018-05-16 15:02] LABS: ALANINE AMINOTRANSFERASE 97 U/L (9-52); ALBUMIN 3.8 g/dL (3.5-5.0); ALKALINE PHOSPHATASE 158 U/L (38-126); ANION GAP 11 (5-19); ASPARTATE AMINO TRANSFERASE 144 U/L (14-36); BILIRUBIN,DIRECT 0.4 mg/dL (0.0-0.4); BILIRUBIN,TOTAL 0.7 mg/dL (0.2-1.3); BLOOD UREA NITROGEN 38 mg/dL (7-20); CALCIUM 8.9 mg/dL (8.4-10.2); CARBON DIOXIDE 35 mmol/L (22-30); CHLORIDE 96 mmol/L (98-107); CREATINE KINASE 122 U/L (30-135); GLUCOSE 160 mg/dL (75-110); POTASSIUM 4.5 mmol/L (3.6-5.0); SODIUM 141.5 mmol/L (137-145); TOTAL PROTEIN 6.8 g/dL (6.3-8.2)
--- NOTE | 2018-05-16 15:03 | ER Document Report ---
Doctor's Note Notes: 05/16/18 15:02 Procedure note: With ultrasound guidance the brachial vein was isolated in the right upper extremity. A 20-gauge IV was used under ultrasound guidance. There was good blood flow. The catheter advanced. No complications. Able to visualize flush going into the vein. IV was secured. No complications. Patient tolerated procedure well. No blood loss.
[2018-05-16 15:12] LABS: CREATINE KINASE MB 2.23 ng/mL (<4.55); TROPONIN I 0.013 ng/mL
[2018-05-16 15:48] LABS: APPEARANCE,URINE CLEAR; BILIRUBIN,URINE NEGATIVE (NEGATIVE); COLOR,URINE YELLOW; GLUCOSE, URINE NEGATIVE (NEGATIVE); KETONES,URINE NEGATIVE (NEGATIVE); LEUKOCYTE ESTERASE,URINE NEGATIVE (NEGATIVE); NITRITE,URINE NEGATIVE (NEGATIVE); PROTEIN,URINE NEGATIVE (NEGATIVE); URINE SPECIFIC GRAVITY 1.009; UROBILINOGEN,URINE NEGATIVE mg/dL (<2.0)
--- NOTE | 2018-05-16 17:57 | PDOC H&P ---
History of Present Illness Admission Date/PCP: 05/16/18 13:55 Patient complains of: Left lower extremity pain History of Present Illness: SINAN MONTGOMERY is a 88 year old female patient of Dr Holland who was brought to the ED with incidental fall while trying to climb stair at her daughter's home during visit for earlier today. Patient and daughter reported audible popping sound with the fall following her missing the stair and her knee gave out. There was subsequent pain with motion of the affected limb. Patient is a resident at [facility]. Her morbidities include CHF, HTN, CAD, [place], HLD, GERD, Hypothyroidism, Osteoarthritis, Bipolar disorder with Depression. She will be admitted for further surgical intervention. Past Medical History Cardiac Medical History: Reports: Congestive Heart Failure, Coronary Artery Disease, Myocardial Infarction, Hyperlipidema, Hypertension Pulmonary Medical History: Reports: Asthma, Bronchitis, Chronic Obstructive Pulmonary Disease (COPD), Pneumonia, Sleep Apnea Neurological Medical History: Endocrine Medical History: Reports: Diabetes Mellitus Type 2, Hyperthyroidism, Hypothyroidism Renal/ Medical History: Malignancy Medical History: Reports: Breast Cancer GI Medical History: Reports: Gastroesophageal Reflux Disease Musculoskeltal Medical History: Reports: Arthritis Denies: Fibromyalgia Psychiatric Medical History: Reports: Bipolar Disorder, Depression Hematology: Reports: Anemia Infectious Medical History: Past Surgical History Past Surgical History: Reports: Adenoidectomy, Appendectomy, Cardiac Catheterization, Cholecystectomy, Coronary Artery Bypass Graft - 1996, Hysterectomy, Mastectomy - rt 1994, Orthopedic Surgery - Right Hip replacement, bilateral knee replacements, Tonsillectomy Denies: Tubal Ligation Social History Lives with: Family Smoking Status: Former Smoker Frequency of Alcohol Use: None Hx Recreational Drug Use: No Drugs: None Hx Prescription Drug Abuse: No Family History Family History: Reviewed & Not Pertinent, CAD, CVA, DM, Hyperlipidemia, Hypertension Parental Family History Reviewed: Yes Children Family History Reviewed: Yes Sibling(s) Family History Reviewed.: Yes Medication/Allergy Home Medications: Albuterol Sulfate [Proair Hfa Inhalation Aerosol 8.5 gm Mdi] 2 puff IH Q4HP PRN 05/16/18 Ascorbic Acid [Vitamin C 500 mg Tablet] 500 mg PO BID 05/16/18 Clobetasol Propionate/Emoll [Clobetasol Emollient 0.05% Crm] 1 applic TP BID Duloxetine HCl [Cymbalta] 60 mg PO DAILY 05/16/18 Fluticasone/Umeclidin/Vilanter [Trelegy 100-62.5-25 Mcg Ellipta 14 Dose/Dpi] 1 puff IH DAILY 05/16/18 Furosemide [Lasix 40 mg Tablet] 40 mg PO QAM 05/16/18 Gabapentin [Neurontin 300 mg Capsule] 300 mg PO Q8 05/16/18 Ipratropium/Albuterol Sulfate [Duoneb 3 ml Ampul] 3 ml NEB RTQ6HP PRN 05/16/18 Linagliptin [Tradjenta] 5 mg PO DAILY 05/16/18 Loratadine [Claritin 10 mg Tablet] 10 mg PO DAILY 05/16/18 Memantine HCl [Namenda 10 mg Tablet] 10 mg PO BID 05/16/18 Metoprolol Tartrate [Lopressor 25 mg Tablet] 25 mg PO DAILY 05/16/18 Multivitamin [Daily Multiple Vitamin] 1 each PO DAILY 05/16/18 Nystatin [Mycostatin Topical Powder 15 gm] 1 applic TP BID 05/16/18 Oxycodone HCl/Acetaminophen [Percocet 10-325 Mg Tablet] 1 each PO Q4 05/16/18 Prednisone [Deltasone 5 mg Tablet] 5 mg PO DAILY 05/16/18 Allergies/Adverse Reactions: codeine [Codeine] Allergy (Severe, Verified 09/26/17 19:17) headache bacitracin [From Neosporin ([id number])] Allergy (Verified 09/26/17 19:17) gabapentin Allergy (Verified 09/26/17 19:17) neomycin [From Neosporin ([id number])] Allergy (Verified 09/26/17 19:17) polymyxin B [From Neosporin ([id number])] Allergy (Verified 09/26/17 19:17) pregabalin [From Lyrica] Allergy (Verified 09/26/17 19:17) Hallucinations Sulfa (Sulfonamide Antibiotics) Allergy (Verified 09/26/17 19:17) itching Review of Systems Constitutional: ABSENT: chills, fever(s), headache(s), weight gain, weight loss Eyes: ABSENT: visual disturbances Ears: ABSENT: hearing changes Nose, Mouth, and Throat: ABSENT: as per HPI, headache(s), mouth pain, sore throat, vertigo, other Cardiovascular: ABSENT: chest pain, dyspnea on exertion, edema, orthropnea, palpitations Respiratory: ABSENT: cough, hemoptysis Gastrointestinal: ABSENT: abdominal pain, constipation, diarrhea, hematemesis, hematochezia, nausea, vomiting Genitourinary: ABSENT: dysuria, hematuria Musculoskeletal: PRESENT: deformity - related to joint involvement with arthritis Neurological: ABSENT: abnormal gait, abnormal speech, confusion, dizziness, focal weakness, syncope Psychiatric: ABSENT: anxiety, depression, homidical ideation, suicidal ideation Endocrine: ABSENT: cold intolerance, heat intolerance, polydipsia, polyuria Hematologic/Lymphatic: ABSENT: easy bleeding, easy bruising, lymphadenopathy Allergic/Immunologic: ABSENT: seasonal rhinorrhea Physical Exam Vital Signs: Temp Pulse Resp BP Pulse Ox 98.0 F 66 16 146/73 H 90 L 05/16/18 16:11 05/16/18 16:11 05/16/18 16:11 05/16/18 16:11 05/16/18 16:11 Intake & Output 05/15/18 05/16/18 05/17/18 06:59 06:59 06:59 Weight 102.4 kg General appearance: PRESENT: mild distress - from left knee pain, obese Head exam: PRESENT: atraumatic, normocephalic Eye exam: PRESENT: conjunctiva pink, EOMI, PERRLA. ABSENT: scleral icterus Ear exam: PRESENT: normal external ear exam Mouth exam: PRESENT: moist - fairly Respiratory exam: PRESENT: clear to auscultation julio Cardiovascular exam: PRESENT: RRR. ABSENT: diastolic murmur, rubs, systolic murmur Vascular exam: PRESENT: normal capillary refill, pallor GI/Abdominal exam: PRESENT: normal bowel sounds, soft. ABSENT: distended, guarding, mass, organolmegaly, rebound, tenderness Rectal exam: PRESENT: deferred Extremities exam: PRESENT: tenderness - left knee region Musculoskeletal exam: PRESENT: deformity - related to multiple joints involvement with arthritis, tenderness - left knee region, right shoulder joint , neck and lower back Neurological exam: PRESENT: alert, awake, oriented to person, oriented to place , oriented to time, oriented to situation, CN II-XII grossly intact. ABSENT: motor sensory deficit Psychiatric exam: PRESENT: appropriate affect, normal mood. ABSENT: homicidal ideation, suicidal ideation Skin exam: PRESENT: abrasion - to right leg from recent fall at home, dry, warm Results Laboratory Results: 05/16/18 14:29 05/16/18 14:29 05/16/18 05/16/18 05/16/18 14:29 14:29 15:20 WBC 9.5 RBC 4.28 Hgb 13.2 Hct 38.9 MCV 91 MCH 30.7 MCHC 33.8 RDW 14.7 H Plt Count 200 Seg Neutrophils % 80.6 H Lymphocytes % 11.7 L Monocytes % 4.3 Eosinophils % 3.0 Basophils % 0.4 Absolute Neutrophils 7.6 Absolute Lymphocytes 1.1 Absolute Monocytes 0.4 Absolute Eosinophils 0.3 Absolute Basophils 0.0 Sodium 141.5 Potassium 4.5 Chloride 96 L Carbon Dioxide 35 H Anion Gap 11 BUN 38 H Creatinine 1.05 Est GFR ( Amer) > 60 Est GFR (Non-Af Amer) 50 L Glucose 160 H Calcium 8.9 Total Bilirubin 0.7 AST 144 H ALT 97 H Alkaline Phosphatase 158 H Total Protein 6.8 Albumin 3.8 Urine Color YELLOW Urine Appearance CLEAR Urine pH 7.0 Ur Specific [place] 1.009 Urine Protein NEGATIVE Urine Glucose (UA) NEGATIVE Urine Ketones NEGATIVE Urine Blood NEGATIVE Urine Nitrite NEGATIVE Ur Leukocyte Esterase NEGATIVE Urine WBC (Auto) 1 Urine RBC (Auto) 0 05/16/18 05/16/18 14:29 14:29 Creatine Kinase 122 CK-MB (CK-2) 2.23 Troponin I 0.013 Impressions: Femur X-Ray 05/16/18 12:50 IMPRESSION: Acute spiral fracture distal left femoral diaphysis, extending just up to the femoral component of a left total knee replacement Question artifact versus fracture over the left innominate bone at the upper edge of the field of view. AP pelvis film recommended. Knee X-Ray 05/16/18 12:51 IMPRESSION: Acute spiral fracture distal left femoral diaphysis extending just up to the edge of the femoral component of a total knee replacement Assessment & Plan - Diagnosis (1) Fracture of distal femur Qualifiers: Encounter type: initial encounter Fracture type: closed Fracture morphology: unspecified fracture morphology Laterality: left Qualified Code( s): S72.402A - Unspecified fracture of lower end of left femur, initial encounter for closed fracture Is this a current diagnosis for this admission?: Yes Plan: I will request orthopedic surgery evaluation and intervention. Maintain on IV Morphine for pain management. She will be made NPO after midnight. (2) Fall at home Qualifiers: Encounter type: initial encounter Qualified Code(s): W19.XXXA - Unspecified fall, initial encounter; Y92.009 - Unspecified place in unspecified non-institutional (private) residence as the place of occurrence of the external cause; Y92.009 - Unspecified place in unspecified non-institutional ( private) residence as the place of occurrence of the external cause Is this a current diagnosis for this admission?: Yes Plan: Physical therapy intervention after surgical treatment. She will return to [facility] for physical rehabilitation. (3) Chronic obstructive lung disease Qualifiers: COPD type: COPD with acute exacerbation Qualified Code(s): J44.1 - Chronic obstructive pulmonary disease with (acute) exacerbation Is this a current diagnosis for this admission?: Yes Plan: Continue on her preadmission medications management. (4) Diabetes mellitus type 2 in obese Is this a current diagnosis for this admission?: Yes Plan: Maintain on sliding scale management until after adequate oral intake. She will be on acuchek achs. - Time Time Spent: 50 to 70 Minutes Medications reviewed and adjusted accordingly: Yes Anticipated discharge: SNF Within: Other - Inpatient Certification Based on my medical assessment, after consideration of the patient's comorbidities, presenting symptoms, or acuity I expect that the services needed warrant INPATIENT care.: Yes I certify that my determination is in accordance with my understanding of Medicare's requirements for reasonable and necessary INPATIENT services [42 CFR 412.3e].: Yes Medical Necessity: Need Close Monitoring Due to Risk of Patient Decompensation, Need For IV Fluids, Need for Pain Control, Need for Surgery, Risk of Complication if Not Cared For in Hospital Post Hospital Care: D/C or Transfer Summary - Plan Summary Plan Summary: See admitting attending physician orders as reflective of outlined care plan.
[2018-05-16] MEDS ORDERED: DEXTROSE 50%-WATER 25 GM/50 ML DISP.SYRIN IV PRN ×2 (17:58)
[2018-05-16] MEDS ORDERED: GLUCAGON,HUMAN RECOMB 1 MG INJ IM PRN (17:58)
[2018-05-16] MEDS ORDERED: DEXTROSE 40% GEL 15 GM TUBE PO PRN ×2 (17:58)
[2018-05-16] MEDS ORDERED: (PENDING PHARMACY ID) (Clobetasol Propionate/Emoll [Clobetasol Emollient 0.05% Crm] 1 APPL TP SCH (18:00)
[2018-05-16] MEDS ORDERED: IPRATROPIUM/ALBUTEROL 0.5-2.5 MG/3 ML AMPUL NEB PRN (18:00)
[2018-05-16] MEDS: MORPHINE SULFATE 10 MG/ML INJ IV PRN ×2 (18:27→22:27)
[2018-05-16] MEDS: NYSTATIN TOPICAL POWDER 15 GM TP SCH (18:28)
[2018-05-16] MEDS: ASCORBIC ACID 500 MG TABLET PO SCH (18:33)
[2018-05-16] MEDS: MEMANTINE HCL 10 MG TABLET PO SCH (18:34)
--- NOTE | 2018-05-16 19:56 | EKG REPORT ---
SEVERITY:- ABNORMAL ECG - SINUS RHYTHM NONSPECIFIC INTRAVENTRICULAR CONDUCTION DELAY BORDERLINE INFERIOR Q WAVES : Confirmed by: Dora Gonzalez MD 16-May-2018 19:55:41
[2018-05-16] MEDS: GABAPENTIN 300 MG CAPSULE PO SCH (21:03)
[2018-05-17] MEDS: GABAPENTIN 300 MG CAPSULE PO SCH ×5 (05:49→21:16)
[2018-05-17] MEDS: LANSOPRAZOLE 30 MG TAB.RAP.DR PO SCH ×2 (05:49→08:39)
[2018-05-17 05:59] LABS: ABSOLUTE EOSINOPHILS # (AUTO) 0.3 10^3/uL (0.0-0.6); ABSOLUTE LYMPHOCYTES (AUTO) 1.9 10^3/uL (0.5-4.7); ABSOLUTE MONOCYTES (AUTO) 0.7 10^3/uL (0.1-1.4); ABSOLUTE NEUT (AUTO) 6.8 10^3/uL (1.7-8.2); BASOPHILS % (AUTO) 0.4 % (0-2); EOSINOPHILS % (AUTO) 2.8 % (0-6); HEMATOCRIT 38.6 % (36.0-47.0); HEMOGLOBIN 13.1 g/dL (12.0-15.5); LYMPHOCYTES % (AUTO) 19.9 % (13-45); MEAN CORPUSCULAR HEMOGLOBIN 30.9 pg (27.0-33.4); MEAN CORPUSCULAR VOLUME 91 fl (80-97); MONOCYTES % (AUTO) 7.6 % (3-13); PLATELET COUNT 193 10^3/uL (150-450); RED BLOOD COUNT 4.24 10^6/uL (3.72-5.28); RED CELL DISTRIBUTION WIDTH 14.9 % (11.5-14.0); SEGMENTED NEUTROPHILS % (AUTO) 69.3 % (42-78); TOTAL CELLS COUNTED % (AUTO) 100 %; WHITE BLOOD COUNT 9.8 10^3/uL (4.0-10.5)
[2018-05-17 06:20] LABS: ALANINE AMINOTRANSFERASE 147 U/L (9-52); ALBUMIN 3.7 g/dL (3.5-5.0); ALKALINE PHOSPHATASE 195 U/L (38-126); ANION GAP 9 (5-19); ASPARTATE AMINO TRANSFERASE 193 U/L (14-36); BILIRUBIN,DIRECT 0.2 mg/dL (0.0-0.4); BILIRUBIN,TOTAL 0.7 mg/dL (0.2-1.3); BLOOD UREA NITROGEN 33 mg/dL (7-20); CALCIUM 8.9 mg/dL (8.4-10.2); CARBON DIOXIDE 35 mmol/L (22-30); CHLORIDE 98 mmol/L (98-107); GLUCOSE 103 mg/dL (75-110); POTASSIUM 4.5 mmol/L (3.6-5.0); SODIUM 142.3 mmol/L (137-145); TOTAL PROTEIN 6.3 g/dL (6.3-8.2)
[2018-05-17 06:54] LABS: INTERNATIONAL RATION (INR) 0.96; PROTHROMBIN TIME 13.3 SEC (11.4-15.4)
[2018-05-17] MEDS: MORPHINE SULFATE 10 MG/ML INJ IV PRN ×4 (08:04→20:15)
[2018-05-17] MEDS: DULOXETINE HCL 30 MG CAPSULE.DR PO SCH (09:22)
[2018-05-17] MEDS: LORATADINE 10 MG TABLET PO SCH (09:23)
[2018-05-17] MEDS: METOPROLOL TARTRATE 25 MG TABLET PO SCH (09:23)
[2018-05-17] MEDS: MULTIVITAMIN TABLET PO SCH (09:23)
[2018-05-17] MEDS: MEMANTINE HCL 10 MG TABLET PO SCH ×2 (09:23→17:12)
[2018-05-17] MEDS: ASCORBIC ACID 500 MG TABLET PO SCH ×2 (09:24→17:13)
[2018-05-17] MEDS: ENOXAPARIN SODIUM INJ 40 MG/0.4 ML DISP.SYRIN SUBCUT SCH (09:24)
[2018-05-17] MEDS: SITAGLIPTIN PHOSPHATE 50 MG TABLET PO SCH (09:25)
[2018-05-17] MEDS: PREDNISONE 5 MG TABLET PO SCH (09:25)
[2018-05-17] MEDS: FLUTICASONE/UMECLIDIN/VILANTER 100-62.5-25 MCG/DOSE IH SCH (09:27)
[2018-05-17] MEDS: NYSTATIN TOPICAL POWDER 15 GM TP SCH ×2 (09:36→17:12)
[2018-05-17] MEDS: NORMAL SALINE 1000 ML 1,000 ML IV PRN (10:04)
--- NOTE | 2018-05-17 11:43 | PDOC CONSULTATION ---
History of Present Illness Admission Date/PCP: 05/16/18 13:55 Patient complains of: Left knee pain History of Present Illness: SINAN MONTGOMERY is a 88 year old female who sustained a fall while ambulating at her daughter's. Patient had pain at the time of injury with inability to weight -bear. She was brought to the emergency room where x-rays demonstrated a fracture. Patient has history of previous left total hip/total knee arthroplasties. States pain is 10/10 currently controlled with morphine. Denies numbness or tingling. Past Medical History Cardiac Medical History: Reports: Congestive Heart Failure, Coronary Artery Disease, Myocardial Infarction, Hyperlipidema, Hypertension Pulmonary Medical History: Reports: Asthma, Bronchitis, Chronic Obstructive Pulmonary Disease (COPD), Pneumonia, Sleep Apnea Neurological Medical History: Endocrine Medical History: Reports: Diabetes Mellitus Type 2, Hyperthyroidism, Hypothyroidism Renal/ Medical History: Malignancy Medical History: Reports: Breast Cancer GI Medical History: Reports: Gastroesophageal Reflux Disease Musculoskeltal Medical History: Reports: Arthritis Denies: Fibromyalgia Psychiatric Medical History: Reports: Bipolar Disorder, Depression Hematology: Reports: Anemia Infectious Medical History: Past Surgical History Past Surgical History: Reports: Adenoidectomy, Appendectomy, Cardiac Catheterization, Cholecystectomy, Coronary Artery Bypass Graft - 1996, Hysterectomy, Mastectomy - rt 1994, Orthopedic Surgery - Right Hip replacement, bilateral knee replacements, Tonsillectomy Denies: Tubal Ligation Social History Lives with: Family Smoking Status: Former Smoker Frequency of Alcohol Use: None Hx Recreational Drug Use: No Drugs: None Hx Prescription Drug Abuse: No Family History Family History: Reviewed & Not Pertinent, CAD, CVA, DM, Hyperlipidemia, Hypertension Parental Family History Reviewed: No Children Family History Reviewed: No Sibling(s) Family History Reviewed.: No Medication/Allergy Home Medications: Albuterol Sulfate [Proair Hfa Inhalation Aerosol 8.5 gm Mdi] 2 puff IH Q4HP PRN 05/16/18 Ascorbic Acid [Vitamin C 500 mg Tablet] 500 mg PO BID 05/16/18 Clobetasol Propionate/Emoll [Clobetasol Emollient 0.05% Crm] 1 applic TP BID Duloxetine HCl [Cymbalta] 60 mg PO DAILY 05/16/18 Fluticasone/Umeclidin/Vilanter [Trelegy 100-62.5-25 Mcg Ellipta 14 Dose/Dpi] 1 puff IH DAILY 05/16/18 Furosemide [Lasix 40 mg Tablet] 40 mg PO QAM 05/16/18 Gabapentin [Neurontin 300 mg Capsule] 300 mg PO Q8 05/16/18 Ipratropium/Albuterol Sulfate [Duoneb 3 ml Ampul] 3 ml NEB RTQ6HP PRN 05/16/18 Linagliptin [Tradjenta] 5 mg PO DAILY 05/16/18 Loratadine [Claritin 10 mg Tablet] 10 mg PO DAILY 05/16/18 Memantine HCl [Namenda 10 mg Tablet] 10 mg PO BID 05/16/18 Metoprolol Tartrate [Lopressor 25 mg Tablet] 25 mg PO DAILY 05/16/18 Multivitamin [Daily Multiple Vitamin] 1 each PO DAILY 05/16/18 Nystatin [Mycostatin Topical Powder 15 gm] 1 applic TP BID 05/16/18 Oxycodone HCl/Acetaminophen [Percocet 10-325 Mg Tablet] 1 each PO Q4 05/16/18 Prednisone [Deltasone 5 mg Tablet] 5 mg PO DAILY 05/16/18 Allergies/Adverse Reactions: codeine [Codeine] Allergy (Severe, Verified 09/26/17 19:17) headache bacitracin [From Neosporin ([id number])] Allergy (Verified 09/26/17 19:17) gabapentin Allergy (Verified 09/26/17 19:17) neomycin [From Neosporin ([id number])] Allergy (Verified 09/26/17 19:17) polymyxin B [From Neosporin ([id number])] Allergy (Verified 09/26/17 19:17) pregabalin [From Lyrica] Allergy (Verified 09/26/17 19:17) Hallucinations Sulfa (Sulfonamide Antibiotics) Allergy (Verified 09/26/17 19:17) itching Review of Systems Constitutional: ABSENT: chills, fever(s), headache(s), weight gain, weight loss Eyes: ABSENT: visual disturbances Ears: ABSENT: hearing changes Cardiovascular: ABSENT: chest pain, dyspnea on exertion, edema, orthropnea, palpitations Respiratory: ABSENT: cough, hemoptysis Gastrointestinal: ABSENT: abdominal pain, constipation, diarrhea, hematemesis, hematochezia, nausea, vomiting Genitourinary: ABSENT: dysuria, hematuria Musculoskeletal: PRESENT: as per HPI Integumentary: ABSENT: rash, wounds Neurological: ABSENT: abnormal gait, abnormal speech, confusion, dizziness, focal weakness, syncope Psychiatric: ABSENT: anxiety, depression, homidical ideation, suicidal ideation Endocrine: ABSENT: cold intolerance, heat intolerance, menstrual abnormalities, polydipsia, polyuria Hematologic/Lymphatic: ABSENT: easy bleeding, easy bruising, lymphadenopathy Physical Exam Vital Signs: Temp Pulse Resp BP Pulse Ox 99.3 F 78 17 150/62 H 95 05/17/18 07:35 05/17/18 07:35 05/17/18 07:35 05/17/18 07:35 05/17/18 07:35 Intake & Output 05/16/18 05/17/18 05/18/18 06:59 06:59 06:59 Intake Total 384 Output Total 1125 Balance -741 Weight 100.7 kg General appearance: PRESENT: no acute distress, obese, well-developed, well- nourished Head exam: PRESENT: atraumatic, normocephalic Eye exam: PRESENT: conjunctiva pink, EOMI, PERRLA. ABSENT: scleral icterus Ear exam: PRESENT: normal external ear exam Mouth exam: PRESENT: moist, tongue midline Neck exam: PRESENT: full ROM. ABSENT: carotid bruit, JVD, lymphadenopathy, thyromegaly Respiratory exam: PRESENT: unlabored Cardiovascular exam: PRESENT: RRR. ABSENT: diastolic murmur, rubs, systolic murmur Pulses: PRESENT: normal dorsalis pedis pul, +2 pedal pulses bilateral Vascular exam: PRESENT: normal capillary refill GI/Abdominal exam: PRESENT: normal bowel sounds, soft. ABSENT: distended, guarding, mass, organolmegaly, rebound, tenderness Rectal exam: PRESENT: deferred Musculoskeletal exam: PRESENT: other - Left knee: No evidence of immobilization. Swelling and ecchymosis along the distal femur. Tenderness palpation. Previous surgical incision noted no erythema or drainage. No calf tenderness. Intact plantar flexion/dorsiflexion however limited secondary to pain. Neurological exam: PRESENT: alert, awake, oriented to person, oriented to place , oriented to time, oriented to situation, CN II-XII grossly intact. ABSENT: motor sensory deficit Psychiatric exam: PRESENT: appropriate affect, flat affect, normal mood. ABSENT : homicidal ideation, suicidal ideation Skin exam: PRESENT: dry, intact, warm. ABSENT: cyanosis, rash Results Laboratory Results: 05/17/18 05:38 05/17/18 05:38 05/16/18 05/16/18 05/16/18 14:29 14:29 15:20 WBC 9.5 RBC 4.28 Hgb 13.2 Hct 38.9 MCV 91 MCH 30.7 MCHC 33.8 RDW 14.7 H Plt Count 200 Seg Neutrophils % 80.6 H Lymphocytes % 11.7 L Monocytes % 4.3 Eosinophils % 3.0 Basophils % 0.4 Absolute Neutrophils 7.6 Absolute Lymphocytes 1.1 Absolute Monocytes 0.4 Absolute Eosinophils 0.3 Absolute Basophils 0.0 Sodium 141.5 Potassium 4.5 Chloride 96 L Carbon Dioxide 35 H Anion Gap 11 BUN 38 H Creatinine 1.05 Est GFR ( Amer) > 60 Est GFR (Non-Af Amer) 50 L Glucose 160 H Calcium 8.9 Total Bilirubin 0.7 AST 144 H ALT 97 H Alkaline Phosphatase 158 H Total Protein 6.8 Albumin 3.8 Urine Color YELLOW Urine Appearance CLEAR Urine pH 7.0 Ur Specific [place] 1.009 Urine Protein NEGATIVE Urine Glucose (UA) NEGATIVE Urine Ketones NEGATIVE Urine Blood NEGATIVE Urine Nitrite NEGATIVE Ur Leukocyte Esterase NEGATIVE Urine WBC (Auto) 1 Urine RBC (Auto) 0 05/17/18 05/17/18 05:38 05:38 WBC 9.8 RBC 4.24 Hgb 13.1 Hct 38.6 MCV 91 MCH 30.9 MCHC 34.0 RDW 14.9 H Plt Count 193 Seg Neutrophils % 69.3 Lymphocytes % 19.9 Monocytes % 7.6 Eosinophils % 2.8 Basophils % 0.4 Absolute Neutrophils 6.8 Absolute Lymphocytes 1.9 Absolute Monocytes 0.7 Absolute Eosinophils 0.3 Absolute Basophils 0.0 Sodium 142.3 Potassium 4.5 Chloride 98 Carbon Dioxide 35 H Anion Gap 9 BUN 33 H Creatinine 1.06 Est GFR ( Amer) 59 L Est GFR (Non-Af Amer) 49 L Glucose 103 Calcium 8.9 Total Bilirubin 0.7 AST 193 H ALT 147 H Alkaline Phosphatase 195 H Total Protein 6.3 Albumin 3.7 Urine Color Urine Appearance Urine pH Ur Specific [place] Urine Protein Urine Glucose (UA) Urine Ketones Urine Blood Urine Nitrite Ur Leukocyte Esterase Urine WBC (Auto) Urine RBC (Auto) 05/16/18 05/16/18 14:29 14:29 Creatine Kinase 122 CK-MB (CK-2) 2.23 Troponin I 0.013 Impressions: Femur X-Ray 05/16/18 12:50 IMPRESSION: Acute spiral fracture distal left femoral diaphysis, extending just up to the femoral component of a left total knee replacement Question artifact versus fracture over the left innominate bone at the upper edge of the field of view. AP pelvis film recommended. Knee X-Ray 05/16/18 12:51 IMPRESSION: Acute spiral fracture distal left femoral diaphysis extending just up to the edge of the femoral component of a total knee replacement Status: Image reviewed by me - I have reviewed patient's radiographs which demonstrate spiral fracture of the distal femur above periprosthetic knee and distal to the total hip stem. No evidence of osseous lesions. Assessment & Plan - Diagnosis (1) Fracture of distal femur Qualifiers: Encounter type: initial encounter Fracture type: closed Fracture morphology: unspecified fracture morphology Laterality: left Qualified Code( s): S72.402A - Unspecified fracture of lower end of left femur, initial encounter for closed fracture Is this a current diagnosis for this admission?: Yes Plan: Patient sustained a periprosthetic distal femur fracture. I have discussed treatment options with the patient and the daughter given her multiple comorbidities she is not a great surgical candidate however given the amount of displacement and location if patient is cleared from a medical standpoint we will proceed with operative intervention which includes open reduction internal fixation left distal femur fracture possible IM nail. I discussed these risks with the patient's daughter who agrees with current plan.
[2018-05-17] MEDS: OXYCODONE HCL IR 5 MG TABLET PO PRN ×2 (16:40→21:42)
--- NOTE | 2018-05-17 16:41 | PDOC PROGRESS REPORT ---
Subjective Progress Note for:: 05/17/18 Subjective:: Patient is here for the distal femur fracture According to the daughter was patients taking this several pain medications in the nursing facilities currently pain is not well under control Patient with multiple comorbidity Patient is denied any chest pain denied any shortness of breath Reason For Visit: FALL AT HOME, DISTAL FEMORAL FRACTURE Physical Exam Vital Signs: Temp Pulse Resp BP Pulse Ox 98.8 F 68 17 131/66 H 94 05/17/18 16:00 05/17/18 16:00 05/17/18 16:00 05/17/18 16:00 05/17/18 16:00 Intake & Output 05/16/18 05/17/18 05/18/18 06:59 06:59 06:59 Intake Total 384 Output Total 1125 Balance -741 Weight 100.7 kg General appearance: PRESENT: no acute distress, well-developed, well-nourished Head exam: PRESENT: atraumatic, normocephalic Eye exam: PRESENT: conjunctiva pink, EOMI, PERRLA. ABSENT: scleral icterus Ear exam: PRESENT: normal external ear exam Mouth exam: PRESENT: moist, tongue midline Neck exam: PRESENT: full ROM. ABSENT: carotid bruit, JVD, lymphadenopathy, thyromegaly Respiratory exam: PRESENT: clear to auscultation julio Cardiovascular exam: PRESENT: RRR. ABSENT: diastolic murmur, rubs, systolic murmur Pulses: PRESENT: normal dorsalis pedis pul, +2 pedal pulses bilateral Vascular exam: PRESENT: normal capillary refill GI/Abdominal exam: PRESENT: normal bowel sounds, soft. ABSENT: distended, guarding, mass, organolmegaly, rebound, tenderness Rectal exam: PRESENT: deferred Extremities exam: ABSENT: pedal edema Neurological exam: PRESENT: alert, awake, oriented to person, oriented to place , oriented to time, oriented to situation, CN II-XII grossly intact. ABSENT: motor sensory deficit Psychiatric exam: PRESENT: appropriate affect, normal mood. ABSENT: homicidal ideation, suicidal ideation Skin exam: PRESENT: dry, intact, warm. ABSENT: cyanosis, rash Results Laboratory Results: 05/17/18 05:38 05/17/18 05:38 05/17/18 05/17/18 05:38 05:38 WBC 9.8 RBC 4.24 Hgb 13.1 Hct 38.6 MCV 91 MCH 30.9 MCHC 34.0 RDW 14.9 H Plt Count 193 Seg Neutrophils % 69.3 Lymphocytes % 19.9 Monocytes % 7.6 Eosinophils % 2.8 Basophils % 0.4 Absolute Neutrophils 6.8 Absolute Lymphocytes 1.9 Absolute Monocytes 0.7 Absolute Eosinophils 0.3 Absolute Basophils 0.0 Sodium 142.3 Potassium 4.5 Chloride 98 Carbon Dioxide 35 H Anion Gap 9 BUN 33 H Creatinine 1.06 Est GFR ( Amer) 59 L Est GFR (Non-Af Amer) 49 L Glucose 103 Calcium 8.9 Total Bilirubin 0.7 AST 193 H ALT 147 H Alkaline Phosphatase 195 H Total Protein 6.3 Albumin 3.7 05/16/18 05/16/18 14:29 14:29 Creatine Kinase 122 CK-MB (CK-2) 2.23 Troponin I 0.013 Impressions: Femur X-Ray 05/16/18 12:50 IMPRESSION: Acute spiral fracture distal left femoral diaphysis, extending just up to the femoral component of a left total knee replacement Question artifact versus fracture over the left innominate bone at the upper edge of the field of view. AP pelvis film recommended. Knee X-Ray 05/16/18 12:51 IMPRESSION: Acute spiral fracture distal left femoral diaphysis extending just up to the edge of the femoral component of a total knee replacement Assessment & Plan - Diagnosis (1) Fracture of distal femur Qualifiers: Encounter type: initial encounter Fracture type: closed Fracture morphology: unspecified fracture morphology Laterality: left Qualified Code( s): S72.402A - Unspecified fracture of lower end of left femur, initial encounter for closed fracture Is this a current diagnosis for this admission?: Yes (2) Chronic obstructive airway disease Qualifiers: COPD type: chronic bronchitis Chronic bronchitis type: unspecified Qualified Code(s): J42 - Unspecified chronic bronchitis Is this a current diagnosis for this admission?: Yes (3) Coronary artery disease Qualifiers: Coronary Disease-Associated Artery/Lesion type: [place] artery [place] vs. 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 Is this a current diagnosis for this admission?: Yes (5) Morbid obesity due to excess calories Is this a current diagnosis for this admission?: Yes (6) Opioid dependence Qualifiers: Substance use status: uncomplicated Qualified Code(s): F11.20 - Opioid dependence, uncomplicated Is this a current diagnosis for this admission?: Yes (7) PAD (peripheral artery disease) Is this a current diagnosis for this admission?: Yes - Time Time Spent with patient: 15-24 minutes Medications reviewed and adjusted accordingly: Yes Anticipated discharge: SNF Within: Other - Inpatient Certification Based on my medical assessment, after consideration of the patient's comorbidities, presenting symptoms, or acuity I expect that the services needed warrant INPATIENT care.: Yes I certify that my determination is in accordance with my understanding of Medicare's requirements for reasonable and necessary INPATIENT services [42 CFR 412.3e].: Yes Medical Necessity: Need Close Monitoring Due to Risk of Patient Decompensation, Need for Surgery 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
[2018-05-17] MEDS: DOCUSATE SODIUM 100 MG CAPSULE PO SCH (17:12)
--- NOTE | 2018-05-17 21:53 | RADIOLOGY REPORT (SQ) ---
US ABDOMEN HISTORY: Abnormal liver function tests. COMPARISON: None. TECHNIQUE: Grayscale and color Doppler imaging of the abdomen was performed. Study is limited due to body habitus and overlying bowel gas. FINDINGS: The liver measures 13.9 cm. Limited evaluation of the liver parenchyma. The main portal vein has normal hepatopedal flow. Status post cholecystectomy. Common bile duct measures 2 mm. The pancreas is not visualized due to overlying bowel gas. Right kidney measures 9 cm in length without hydronephrosis. Left kidney measures 7.7 cm in length without hydronephrosis. Spleen is normal in size. Visualized portions of the IVC and aorta are patent. IMPRESSION: Study is limited due to body habitus and overlying bowel gas. The liver was poorly visualized on this study. Consider CT scan if there is high concern for acute pathology. Status post cholecystectomy.
[2018-05-17] MEDS: CYCLOBENZAPRINE HCL 10 MG TABLET PO PRN (22:55)
[2018-05-17] MEDS ORDERED: MORPHINE SULFATE 10 MG/ML INJ IV ONE (23:00)
[2018-05-18] MEDS: NORMAL SALINE 1000 ML 1,000 ML IV PRN (00:12)
[2018-05-18 04:59] LABS: ABSOLUTE EOSINOPHILS # (AUTO) 0.2 10^3/uL (0.0-0.6); ABSOLUTE MONOCYTES (AUTO) 0.7 10^3/uL (0.1-1.4); ABSOLUTE NEUT (AUTO) 6.5 10^3/uL (1.7-8.2); BASOPHILS % (AUTO) 0.4 % (0-2); EOSINOPHILS % (AUTO) 2.4 % (0-6); HEMATOCRIT 34.4 % (36.0-47.0); HEMOGLOBIN 11.9 g/dL (12.0-15.5); LYMPHOCYTES % (AUTO) 21.4 % (13-45); MEAN CORPUSCULAR HEMOGLOBIN 31.4 pg (27.0-33.4); MEAN CORPUSCULAR HGB CONC 34.5 g/dL (32.0-36.0); MEAN CORPUSCULAR VOLUME 91 fl (80-97); MONOCYTES % (AUTO) 7.4 % (3-13); PLATELET COUNT 184 10^3/uL (150-450); RED BLOOD COUNT 3.78 10^6/uL (3.72-5.28); RED CELL DISTRIBUTION WIDTH 14.6 % (11.5-14.0); SEGMENTED NEUTROPHILS % (AUTO) 68.4 % (42-78); TOTAL CELLS COUNTED % (AUTO) 100 %; WHITE BLOOD COUNT 9.4 10^3/uL (4.0-10.5)
[2018-05-18] MEDS: LANSOPRAZOLE 30 MG TAB.RAP.DR PO SCH (05:08)
[2018-05-18] MEDS: GABAPENTIN 300 MG CAPSULE PO SCH ×3 (05:08→21:27)
[2018-05-18 05:16] LABS: ALANINE AMINOTRANSFERASE 91 U/L (9-52); ALBUMIN 3.1 g/dL (3.5-5.0); ALKALINE PHOSPHATASE 159 U/L (38-126); ANION GAP 9 (5-19); ASPARTATE AMINO TRANSFERASE 79 U/L (14-36); BILIRUBIN,DIRECT 0.2 mg/dL (0.0-0.4); BILIRUBIN,TOTAL 0.8 mg/dL (0.2-1.3); BLOOD UREA NITROGEN 26 mg/dL (7-20); CALCIUM 8.7 mg/dL (8.4-10.2); CARBON DIOXIDE 30 mmol/L (22-30); CHLORIDE 101 mmol/L (98-107); GLUCOSE 127 mg/dL (75-110); SODIUM 140.3 mmol/L (137-145); TOTAL PROTEIN 5.7 g/dL (6.3-8.2)
[2018-05-18] MEDS: MORPHINE SULFATE 10 MG/ML INJ IV PRN ×3 (05:23→20:04)
--- NOTE | 2018-05-18 08:15 | PDOC PROGRESS REPORT ---
Subjective Progress Note for:: 05/18/18 Subjective:: Patient lying in bed comfortably. Did have issues with pain yesterday but currently controlled. Denies chest pain or shortness of breath. Reason For Visit: FALL AT HOME, DISTAL FEMORAL FRACTURE Physical Exam Vital Signs: Temp Pulse Resp BP Pulse Ox 99.0 F 86 20 133/69 H 91 L 05/18/18 08:00 05/18/18 08:00 05/18/18 08:00 05/18/18 08:00 05/18/18 08:00 Intake & Output 05/17/18 05/18/18 05/19/18 06:59 06:59 06:59 Intake Total 384 1816 Output Total 1127 3565 Balance -741 -659 Weight 100.7 kg 103.9 kg Musculoskeletal exam: PRESENT: other - Left lower extremity: Knee immobilizer intact. Intact plantar flexion/dorsiflexion. Dorsalis pedis pulse 2+. Cap refill less than 2 seconds. Results Laboratory Results: 05/18/18 04:32 05/18/18 04:32 05/18/18 05/18/18 04:32 04:32 WBC 9.4 RBC 3.78 Hgb 11.9 L Hct 34.4 L MCV 91 MCH 31.4 MCHC 34.5 RDW 14.6 H Plt Count 184 Seg Neutrophils % 68.4 Lymphocytes % 21.4 Monocytes % 7.4 Eosinophils % 2.4 Basophils % 0.4 Absolute Neutrophils 6.5 Absolute Lymphocytes 2.0 Absolute Monocytes 0.7 Absolute Eosinophils 0.2 Absolute Basophils 0.0 Sodium 140.3 Potassium 4.0 Chloride 101 Carbon Dioxide 30 Anion Gap 9 BUN 26 H Creatinine 0.82 Est GFR ( Amer) > 60 Est GFR (Non-Af Amer) > 60 Glucose 127 H Calcium 8.7 Total Bilirubin 0.8 AST 79 H ALT 91 H Alkaline Phosphatase 159 H Total Protein 5.7 L Albumin 3.1 L 05/16/18 05/16/18 14:29 14:29 Creatine Kinase 122 CK-MB (CK-2) 2.23 Troponin I 0.013 Impressions: Femur X-Ray 05/16/18 12:50 IMPRESSION: Acute spiral fracture distal left femoral diaphysis, extending just up to the femoral component of a left total knee replacement Question artifact versus fracture over the left innominate bone at the upper edge of the field of view. AP pelvis film recommended. Knee X-Ray 05/16/18 12:51 IMPRESSION: Acute spiral fracture distal left femoral diaphysis extending just up to the edge of the femoral component of a total knee replacement Abdomen Ultrasound 05/17/18 00:00 IMPRESSION: Study is limited due to body habitus and overlying bowel gas. The liver was poorly visualized on this study. Consider CT scan if there is high concern for acute pathology. Status post cholecystectomy. Assessment & Plan - Diagnosis (1) Fracture of distal femur Qualifiers: Encounter type: initial encounter Fracture type: closed Fracture morphology: unspecified fracture morphology Laterality: left Qualified Code( s): S72.402A - Unspecified fracture of lower end of left femur, initial encounter for closed fracture Is this a current diagnosis for this admission?: Yes Plan: Patient sustained a periprosthetic distal femur fracture. I have discussed treatment options with the patient and the daughter given her multiple comorbidities she is not a great surgical candidate however given the amount of displacement and location would recommend operative intervention. Currently awaiting medical and cardiac clearance along with laboratory values evaluating liver enzymes. Once echo has been completed and patient received cardiac clearance we will proceed with operative intervention which includes open reduction internal fixation possible intramedullary nail left distal femur fracture. Risks and benefits have been explained to the daughter risks including anesthetic complications, excessive bleeding, infection, injury to surrounding nerves, vessels and tendons, bruising, healing difficulties, scar formation, posttraumatic arthritis and any unforseen complication. She has verbalized understanding consented for the procedure.
--- NOTE | 2018-05-18 08:21 | RADIOLOGY REPORT (SQ) ---
EXAM DESCRIPTION: CHEST SINGLE VIEW COMPLETED DATE/TIME: 05/18/2018 7:52 am REASON FOR STUDY: preop COMPARISON: 03/29/2017, 03/19/[address] chest 09/27/2017 EXAM PARAMETERS: NUMBER OF VIEWS: One view. TECHNIQUE: Single frontal radiographic view of the chest acquired. RADIATION DOSE: NA LIMITATIONS: None. FINDINGS: LUNGS AND PLEURA: No opacities, masses or pneumothorax. No pleural effusion. MEDIASTINUM AND HILAR STRUCTURES: No masses. Contour normal. HEART AND VASCULAR STRUCTURES: Old sternotomy for CABG. Stable mild cardiomegaly BONES: Old healed right proximal humerus fracture HARDWARE: None in the chest. OTHER: Old right mastectomy. IMPRESSION: NO ACUTE RADIOGRAPHIC FINDING IN THE CHEST. TECHNICAL DOCUMENTATION: JOB ID: [id number] [employer]- All Rights Reserved Reading location - IP/workstation name: [email or web address]
[2018-05-18] MEDS: OXYCODONE HCL IR 5 MG TABLET PO PRN ×4 (08:40→22:19)
[2018-05-18] MEDS: LORATADINE 10 MG TABLET PO SCH (09:22)
[2018-05-18] MEDS: DOCUSATE SODIUM 100 MG CAPSULE PO SCH ×2 (09:22→17:49)
[2018-05-18] MEDS: SITAGLIPTIN PHOSPHATE 50 MG TABLET PO SCH (09:23)
[2018-05-18] MEDS: PREDNISONE 5 MG TABLET PO SCH (09:23)
[2018-05-18] MEDS: DULOXETINE HCL 30 MG CAPSULE.DR PO SCH (09:23)
[2018-05-18] MEDS: METOPROLOL TARTRATE 25 MG TABLET PO SCH ×2 (09:24→21:28)
[2018-05-18] MEDS: MULTIVITAMIN TABLET PO SCH (09:24)
[2018-05-18] MEDS: ENOXAPARIN SODIUM INJ 40 MG/0.4 ML DISP.SYRIN SUBCUT SCH (09:24)
[2018-05-18] MEDS: ASCORBIC ACID 500 MG TABLET PO SCH ×2 (09:25→17:49)
[2018-05-18] MEDS: MEMANTINE HCL 10 MG TABLET PO SCH ×2 (09:25→17:49)
[2018-05-18] MEDS: NYSTATIN TOPICAL POWDER 15 GM TP SCH ×2 (09:25→17:49)
--- NOTE | 2018-05-18 09:25 | PDOC PROGRESS REPORT ---
Subjective Progress Note for:: 05/18/18 Subjective:: Patient is currently doing fair Still complaining of pain on the fracture site getting better after adding the oxycodone Patient's ultrasound of the abdomen did not show any acute finding Patient's LFTs are coming down Patient was also seen by cardiology all of the echocardiogram wait for the cardiac clearance Discussed with the daughter on the bedside regarding the patient's current conditions with the multiple comorbidity with always some high risk for the surgery but patient also suffering with this fractures without interventions patient also not getting better Reason For Visit: FALL AT HOME, DISTAL FEMORAL FRACTURE Physical Exam Vital Signs: Temp Pulse Resp BP Pulse Ox 99.0 F 86 20 133/69 H 91 L 05/18/18 08:00 05/18/18 08:00 05/18/18 08:00 05/18/18 08:00 05/18/18 08:00 Intake & Output 05/17/18 05/18/18 05/19/18 06:59 06:59 06:59 Intake Total 384 1816 Output Total 1125 2475 Balance -741 -659 Weight 100.7 kg 103.9 kg General appearance: PRESENT: no acute distress, well-developed, well-nourished Head exam: PRESENT: atraumatic, normocephalic Eye exam: PRESENT: conjunctiva pink, EOMI, PERRLA. ABSENT: scleral icterus Ear exam: PRESENT: normal external ear exam Mouth exam: PRESENT: moist, tongue midline Neck exam: PRESENT: full ROM. ABSENT: carotid bruit, JVD, lymphadenopathy, thyromegaly Respiratory exam: PRESENT: clear to auscultation julio Cardiovascular exam: PRESENT: RRR. ABSENT: diastolic murmur, rubs, systolic murmur Pulses: PRESENT: normal dorsalis pedis pul, +2 pedal pulses bilateral Vascular exam: PRESENT: normal capillary refill GI/Abdominal exam: PRESENT: normal bowel sounds, soft. ABSENT: distended, guarding, mass, organolmegaly, rebound, tenderness Rectal exam: PRESENT: deferred Extremities exam: ABSENT: pedal edema Neurological exam: PRESENT: alert, awake, oriented to person, oriented to place , oriented to time, oriented to situation, CN II-XII grossly intact. ABSENT: motor sensory deficit Psychiatric exam: PRESENT: appropriate affect, normal mood. ABSENT: homicidal ideation, suicidal ideation Skin exam: PRESENT: dry, intact, warm. ABSENT: cyanosis, rash Results Laboratory Results: 05/18/18 04:32 05/18/18 04:32 05/18/18 05/18/18 04:32 04:32 WBC 9.4 RBC 3.78 Hgb 11.9 L Hct 34.4 L MCV 91 MCH 31.4 MCHC 34.5 RDW 14.6 H Plt Count 184 Seg Neutrophils % 68.4 Lymphocytes % 21.4 Monocytes % 7.4 Eosinophils % 2.4 Basophils % 0.4 Absolute Neutrophils 6.5 Absolute Lymphocytes 2.0 Absolute Monocytes 0.7 Absolute Eosinophils 0.2 Absolute Basophils 0.0 Sodium 140.3 Potassium 4.0 Chloride 101 Carbon Dioxide 30 Anion Gap 9 BUN 26 H Creatinine 0.82 Est GFR ( Amer) > 60 Est GFR (Non-Af Amer) > 60 Glucose 127 H Calcium 8.7 Total Bilirubin 0.8 AST 79 H ALT 91 H Alkaline Phosphatase 159 H Total Protein 5.7 L Albumin 3.1 L 05/16/18 05/16/18 14:29 14:29 Creatine Kinase 122 CK-MB (CK-2) 2.23 Troponin I 0.013 Impressions: Femur X-Ray 05/16/18 12:50 IMPRESSION: Acute spiral fracture distal left femoral diaphysis, extending just up to the femoral component of a left total knee replacement Question artifact versus fracture over the left innominate bone at the upper edge of the field of view. AP pelvis film recommended. Knee X-Ray 05/16/18 12:51 IMPRESSION: Acute spiral fracture distal left femoral diaphysis extending just up to the edge of the femoral component of a total knee replacement Abdomen Ultrasound 05/17/18 00:00 IMPRESSION: Study is limited due to body habitus and overlying bowel gas. The liver was poorly visualized on this study. Consider CT scan if there is high concern for acute pathology. Status post cholecystectomy. Chest X-Ray 05/18/18 00:00 IMPRESSION: NO ACUTE RADIOGRAPHIC FINDING IN THE CHEST. Assessment & Plan - Diagnosis (1) Fracture of distal femur Qualifiers: Encounter type: initial encounter Fracture type: closed Fracture morphology: unspecified fracture morphology Laterality: left Qualified Code( s): S72.402A - Unspecified fracture of lower end of left femur, initial encounter for closed fracture Is this a current diagnosis for this admission?: Yes Plan: Currently follow with the surgery (2) Chronic obstructive airway disease Qualifiers: COPD type: chronic bronchitis Chronic bronchitis type: unspecified Qualified Code(s): J42 - Unspecified chronic bronchitis Is this a current diagnosis for this admission?: Yes Plan: chest x-ray is all clear Continues as needed nebulizer treatment (3) Coronary artery disease Qualifiers: Coronary Disease-Associated Artery/Lesion type: [place] artery [place] vs. transplanted heart: [place] heart Associated angina: without angina Qualified Code(s): I25.10 - Atherosclerotic heart disease of [place] coronary artery without angina pectoris Is this a current diagnosis for this admission?: Yes Plan: Await further cardiology for clearance (4) Diabetes mellitus type 2 in obese Is this a current diagnosis for this admission?: Yes Plan: Continues to current medication (5) Morbid obesity due to excess calories Is this a current diagnosis for this admission?: Yes (6) Opioid dependence Qualifiers: Substance use status: uncomplicated Qualified Code(s): F11.20 - Opioid dependence, uncomplicated Is this a current diagnosis for this admission?: Yes (7) PAD (peripheral artery disease) Is this a current diagnosis for this admission?: Yes - Time Time Spent with patient: 25-34 minutes Medications reviewed and adjusted accordingly: Yes Anticipated discharge: SNF Within: Other - Inpatient Certification Based on my medical assessment, after consideration of the patient's comorbidities, presenting symptoms, or acuity I expect that the services needed warrant INPATIENT care.: Yes I certify that my determination is in accordance with my understanding of Medicare's requirements for reasonable and necessary INPATIENT services [42 CFR 412.3e].: Yes Medical Necessity: Significant Comorbidiites Make Outpatient Treatment Too Risky , Need for Surgery Post Hospital Care: D/C Wan Support Specialist Documentation - Plan Summary Plan Summary: Discussed with the daughter at the bedside regarding the patient's current condition and the test reports Will wait for the cardiac clearance We will repeat the LFT in the morning
[2018-05-18] MEDS: FLUTICASONE/UMECLIDIN/VILANTER 100-62.5-25 MCG/DOSE IH SCH (09:26)
[2018-05-18] MEDS: CYCLOBENZAPRINE HCL 10 MG TABLET PO PRN ×2 (13:00→22:19)
--- NOTE | 2018-05-18 14:23 | PDOC CONSULTATION ---
Consultation-Blank Consultation: CARDIOLOGY CONSULTATION by Dr. Dora Gonzalez on 05/18/2018. Patient seen at 12 noon. 60 minutes spent on this patient more than 50% of time spent in direct patient care. REASON FOR CONSULTATION: Preoperative cardiac risk assessment for right femur fracture surgery. HISTORY OF PRESENT ILLNESS: History obtained from patient and patient's daughter. Is patient is a moderately obese female with known history of coronary artery disease, history of coronary bypass graft surgery, old myocardial infarction, history of hypertension, history of diabetes mellitus, history of asthma and COPD who had an accidental fall and fr obtained from patient and patient's actured her right femur and is for surgical repair of this in the a.m. The patient denies any recent anginal symptoms. There is no recent symptoms of heart failure. There is chronic orthopnea but, but no PND. The patient is wheelchair-bound with regards to ambulation. She does not walk. There is no TIA or CVA symptoms. There is no symptoms of acute exacerbation of COPD or wheezing. She has a past history of congestive heart failure, but no recent symptoms of symptoms since almost a year. There is no syncope. PAST MEDICAL HISTORY: History of coronary artery disease, history of myocardial infarction in the past. History of coronary bypass graft surgery. No recent symptoms of angina mentioned of. History of congestive heart failure. No recent decompensation of heart failure. She has a history of hypertension. She also has a history of asthma and COPD. No history of sleep apnea. She also has a history of diabetes mellitus type 2 [id number]. There is no history of thyroid disease. There is no history of TIA CVA. The patient has mild dementia, and is on Namenda for that. She also has a history of depression, and bipolar disorder. There is no history of chronic kidney disease. PAST SURGICAL HISTORY: She has history of coronary bypass graft surgery, history of cardiac catheterizations in the past. She also has had adenoidectomy and appendectomy, cholecystectomy hysterectomy and on the right side mastectomy she also had right hip replacement and bilateral knee replacements. She is also had tonsillectomy. SOCIAL HISTORY: She is a former smoker quit smoking many years ago. There is no history of EtOH abuse. ALLERGIES:. She is allergic to codeine, Neosporin, Lyrica, and sulfonamides. FAMILY HISTORY: Is positive for coronary artery disease, CVA, diabetes mellitus , hyperlipidemia, and hypertension. DISPOSITION: The patient is a full code. Her daughter is her surrogate healthcare decision maker. REVIEW OF SYSTEMS: Constitutional: Denies any fever chills or rigors. She denies any night sweats. She complains of generalized fatigue and weakness. HEAD: Denies headaches or head injury. EYES: No history of MAA diplopia no history of amaurosis fugax. EARS: No history of tinnitus, no history of vertigo. No recurrent ear infections. NOSE: No history of nosebleeds. No history of hayfever. MOUTH: No history of altered taste sensation. No history of bleeding from the gums. THROAT: No history of odynophagia or dysphagia. No recurrent sore throats. SKIN: No pruritus. No yellowish discoloration of the skin. No history of psoriasis or skin cancer. NECK: No history of neck pain. No history of goiter. No history of lymphadenopathy. LUNGS: History of asthma and COPD. No recent symptoms of acute exacerbation of COPD. No wheezing. No cough. No history of sleep apnea. No history of pulmonary embolism. No symptoms of upper or lower respiratory tract infection. No pleuritic chest pain. No hemoptysis. CARDIAC: History of hypertension present history of hyperlipidemia present. History of coronary artery disease, history of LA, history of coronary bypass graft surgery. No recent symptoms of angina. Past history of congestive heart failure. None recently. She does have chronic orthopnea. But there is no PND or leg edema. There is no palpitations or syncope or near syncope. GI: Occasional symptoms of GERD. No history of fatty food intolerance. No history of jaundice. No history of GI bleed. No history of altered bowel movements. No abdominal pain. This admission has abnormal liver function tests. The etiology of which is being investigated. RENAL: No history of hematuria pyuria dysuria. No symptoms of recurrent UTI. No chronic kidney disease. ENDOCRINE: History of diabetes mellitus type 2 non-insulin- dependent with diabetic neuropathy. She has no thyroid disease. No hirsutism. No polydipsia polyuria. No history of heat or cold intolerance. No excessive sweating. METABOLIC: History of obesity present. No history of gout. History of hyperlipidemia present. MUSCULOSKELETAL: History of arthritis present no history of collagen vascular disease. IT PROGRAM ENGAGEMENT DIRECTOR: No history of TIA CVA. No history of headaches migraines or seizures. No sleep apnea. The patient does not walk, but uses a wheelchair. PSYCHIATRIC: History of mild dementia. History of bipolar disorder at present stable with seems to be in remission. History of depression present. No suicidal ideation. No agitation. No homicidal ideation. VASCULAR: No history of DVT. No history of calf or buttock claudication. HEMATOLOGICAL: No history of bleeding diathesis. No history of clotting disorders. PHYSICAL EXAMINATION: The patient is moderately obese. In no acute distress. She is well-groomed. Selected Entries 05/18/18 12:00 Temperature 98.7 F Temperature Axillary Source Pulse Rate 64 Respiratory 16 Rate Blood Pressure 117/52 L [Left Upper Arm ] Blood Pressure 73 Mean [Left Upper Arm] Blood Pressure Supine Position [Left Upper Arm] O2 Sat by Pulse 94 Oximetry Oxygen Delivery Nasal Cannula Method ( includes room air) Oxygen Flow 2 Rate HEAD: Head is atraumatic normocephalic. EYES: Pupils are equal round regular react to light and accommodation. Extraocular movements are normal. There is no clinical pallor. There is no scleral icterus. EARS: Tympanic membranes are intact. External auditory canals are clear. NOSE: There is no deviated nasal septum. There is no inflammation of the nasal mucous membrane. MOUTH: Mucous membranes of the mouth are moist. Tongue is moist. There is no ulcers. There is no bleeding from the gums. THROAT: There is no redness of the oropharynx, and no exudates. SKIN: There is no petechia or ecchymosis. There is no skin lesions or skin rashes. NECK: Is supple. There is no JVD. Carotids are equal there is no bruits. There is no lymphadenopathy. There is no goiter. There is no accessory muscles of respiration use. Trachea central. LUNGS: Show diminished air entry and prolonged expiration throughout. There is hyperresonance on percussion. There is no chest wall tenderness on palpation. There is no rhonchi, rales or wheezing. HEART: S1-S2 is heard there is no S3 gallop there is no S4 gallop there is systolic murmur left sternal border and apex there is no rub. ABDOMEN: Is obese. Nontender. There is no hepatosplenomegaly. Bowel sounds are well heard. There is no masses. EXTREMITIES: Femorals are deep femorals are diminished. There is no femoral bruits. Leg pulses are diminished. There is no pedal edema. There is foreshortening of the left lower extremity there is no DVT or cellulitis. There is no calf tenderness. There is no cyanosis or clubbing. IT PROGRAM ENGAGEMENT DIRECTOR: The patient is conscious awake alert seems to be oriented x2. With no focal deficits. Psychiatric the patient does not appear to be agitated or anxious. In-depth psychiatric psychiatric exam not done. 05/17/18 05/18/18 05/18/18 05:38 04:32 04:32 WBC 9.4 Hgb 11.9 L Hct 34.4 L Plt Count 184 PT 13.3 INR 0.96 APTT 34.0 Sodium 140.3 Potassium 4.0 Chloride 101 Carbon Dioxide 30 Anion Gap 9 BUN 26 H Creatinine 0.82 Est GFR (Non-Af Amer) > 60 Glucose 127 H Calcium 8.7 Total Bilirubin 0.8 Direct Bilirubin 0.2 Neonat Total Bilirubin Not Reportable Neonat Direct Bilirubin Not Reportable Neonat Indirect Bili Not Reportable AST 79 H ALT 91 H Alkaline Phosphatase 159 H Total Protein 5.7 L Albumin 3.1 L 05/16/18 17:58 Dextrose 50%-Water [Dextrose Inj 50% Syringe (25 gm/50 ml)] 12.5 gm IV PRN PRN Dextrose 50%-Water [Dextrose Inj 50% Syringe (25 gm/50 ml)] 25 gm IV PRN PRN Dextrose [Glutose 40% Gel 15 gm Tube] 15 gm PO PRN PRN Dextrose [Glutose 40% Gel 15 gm Tube] 30 gm PO PRN PRN Glucagon,Human Recombinant [Glucagen Inj 1 mg Vial] 1 mg IM PRN PRN Insulin Lispro [Humalog Insulin 100 Unit/1 ml 3 ml Vial] 0 - 12 unit SUBCUT ACHSP PRN Normal Saline 1000 ml [NaCl 0.9% 1000 ml IV Soln] 1,000 ml IV CONTINUOUS 05/16/18 18:00 Albuterol Sulfate [Proair Hfa Inhalation Aerosol 8.5 gm Mdi] 2 puff IH Q4HP PRN Ascorbic Acid [Vitamin C 500 mg Tablet] 500 mg PO BID Clobetasol Propionate/Emoll [Clobetasol Emollient 0.05% Crm] 1 applic TP BID Ipratropium/Albuterol Sulfate [Duoneb 3 ml Ampul] 3 ml NEB RTQ6HP PRN Memantine HCl [Namenda 10 mg Tablet] 10 mg PO BID Nystatin [Mycostatin Topical Powder 15 gm] 1 applic TP BID 05/16/18 18:02 Morphine Sulfate [Morphine 10 mg/ml Inj] 3 mg IV Q4HP PRN 05/16/18 22:00 Gabapentin [Neurontin 300 mg Capsule] 300 mg PO Q8 05/17/18 06:00 Lansoprazole [Prevacid 30 mg Odt Tablet] 30 mg PO Q6AM 05/17/18 10:00 Duloxetine HCl [Cymbalta 30 mg Capsule.dr] 60 mg PO DAILY Enoxaparin Sodium [Lovenox Inj 40 mg/0.4 ml Disp.syrin] 40 mg SUBCUT DAILY Fluticasone/Umeclidin/Vilanter [Trelegy 100-62.5-25 Mcg Ellipta 14 Dose/Dpi] 1 inh IH DAILY Loratadine [Claritin 10 mg Tablet] 10 mg PO DAILY Metoprolol Tartrate [Lopressor 25 mg Tablet] 25 mg PO DAILY Multivitamin [Tab-A-Carey (Multiple Vitamin) Tablet] 1 tab PO DAILY Prednisone [Deltasone 5 mg Tablet] 5 mg PO DAILY Sitagliptin Phosphate [Januvia 50 mg Tablet] 100 mg PO DAILY 05/17/18 16:03 Oxycodone HCl [Oxy-Ir 5 mg Tablet] 5 mg PO Q4HP PRN 05/17/18 18:00 Docusate Sodium [Colace 100 mg Capsule] 100 mg PO BID 05/17/18 22:45 Cyclobenzaprine HCl [Flexeril 10 mg Tablet] 10 mg PO Q8HP PRN 05/17/18 23:00 Morphine Sulfate [Morphine 10 mg/ml Inj] 2 mg IV NOW ONE EKG: Shows sinus rhythm. Insignificant Q waves in inferior leads. Nonspecific IVCD. The patient's echocardiogram: Is a poor quality study. There is mild LV dilatation. The LV ejection fraction is moderately reduced at 40-45%. With moderate global hypokinesis. There is no significant pulmonary hypertension. There is no aortic stenosis or aortic regurgitation. There is no pericardial effusion. There is mild mitral regurgitation. Neck CHEST X-ray: Shows no acute radiographic findings. X-ray of the left femur shows distal femoral fracture. IMPRESSION/RECOMMENDATION: 1. Status post accidental fall, and distal femoral fracture. Patient is surgical repair of this. 2. Coronary artery disease. History of coronary bypass graft surgery. At present no anginal symptoms. 3. Cardiomyopathy with moderately reduced LV ejection fraction [place] patient without any symptoms. Would recommend continue patient is beta- katherine. Would add an JOEL inhibitor. We will start the patient on a low-dose of lisinopril 2.5 mg p.o. every 12 hours and increase as tolerated. In view of the patient's cardia myopathy would recommend decreasing the patient's IV fluids to 40 mL/h. 4. Hypertension: Blood pressure seems to be well-controlled. Continue current antihypertensives. 5. Diabetes mellitus with diabetic neuropathy. Continue antidiabetic medication. 6. History of bipolar disorder, and depression and mild dementia. Seems to be well-controlled. Continue psych medications. 7. Abnormal liver function tests:? Etiology. Review of the patient's medications do not show that the patient is on a statin. 8. Preoperative cardiac risk assessment: The patient will be at moderate risk for this procedure. Postoperatively we will get serial EKGs and enzymes. Also would watch the patient closely for development of any congestive heart failure or arrhythmias. Hence would perioperatively continue monitoring the patient's heart rhythm on the telemetry. Discussed with attending physician Dr. bill Holland. The patient medications have been reviewed. Medications added. IV fluids adjusted. Management plan has been discussed with the caregiving providers on the case. Medical decision making is of high complexity. Will follow with you.
--- NOTE | 2018-05-18 18:56 | XCELERA REPORT ---
[address] [address] Transthoracic Echocardiogram Report Name: SINAN MONTGOMERY Age: 88 yrs Gender: Female : 1930 Patient Status: Inpatient Patient Location: [address] [place] [address] Study Date: 05/18/2018 10:11 AM Reason For Study: PREOP Ordering Physician: PENNY CAPELLAN Performed By: Zhane Saucedo Interpretation Summary The left ventricle is mildly dilated. There is normal left ventricular wall thickness. LV EF is 40% TO 45% Left ventricular systolic function is moderately reduced. Doppler measurements suggest impaired left ventricular relaxation, which is associated with grade I/IV or mild diastolic dysfunction There is moderate global hypokinesis of the left ventricle. There is no thrombus. The left atrium is mildly dilated. There is no evidence of mitral valve prolapse. There is no mitral valve stenosis. There is a mild amount of mitral regurgitation There is mild aortic stenosis There is a peak gradient of 21 mm of Hg. No hemodynamically significant valvular aortic stenosis. No aortic regurgitation is present. There is no tricuspid stenosis. There is a trace amount of tricuspid regurgitation Unable to calculate RVSP due lack of TR jet. There is no pericardial effusion.( STUDY WAS DONE TWICE DUE TO SUB OPTTIMAL IMAGUNG,rEPORT IS COMBINED FOR BOTH). MMode/2D Measurements & Calculations RVDd: 2.8 cm LVIDd: 6.1 cm FS: 22.8 % Ao root diam: 2.5 cm IVSd: 0.92 cm LVIDs: 4.7 cm EDV(Teich): 188.1 ml Ao root area: 4.9 cm2 LVPWd: 0.77 cm ESV(Teich): 103.5 ml EF(Teich): 45.0 % LVOT diam: 2.0 cm LVOT area: 3.2 cm2 Doppler Measurements & Calculations MV E max jesse: MV dec slope: Ao V2 max: LV V1 max P.5 cm/sec 72.5 cm/sec 1.8 mmHg MV A max jesse: 217.7 cm/sec2 Ao max P.1 mmHgLV V1 max: 59.4 cm/sec MV dec time: 0.19 sec 66.6 cm/sec MV E/A: 0.70 CHRISTIANNE(V,D): 2.9 cm2 PA V2 max: PI max jesse: TR max jesse: 110.0 cm/sec 133.4 cm/sec 116.2 cm/sec PA max P.9 mmHg PI max P.1 mmHg TR max P.4 mmHg : PENNY CAPELLAN > Dora Gonzalez
[2018-05-18] MEDS: LISINOPRIL 5 MG TABLET PO SCH (21:27)
[2018-05-19] MEDS: MORPHINE SULFATE 10 MG/ML INJ IV PRN ×2 (04:02→22:18)
[2018-05-19 04:41] LABS: ABSOLUTE BASOPHILS # (AUTO) 0.1 10^3/uL (0.0-0.2); ABSOLUTE EOSINOPHILS # (AUTO) 0.3 10^3/uL (0.0-0.6); ABSOLUTE LYMPHOCYTES (AUTO) 1.7 10^3/uL (0.5-4.7); ABSOLUTE MONOCYTES (AUTO) 0.7 10^3/uL (0.1-1.4); ABSOLUTE NEUT (AUTO) 6.3 10^3/uL (1.7-8.2); BASOPHILS % (AUTO) 0.9 % (0-2); EOSINOPHILS % (AUTO) 3.8 % (0-6); HEMATOCRIT 34.5 % (36.0-47.0); HEMOGLOBIN 11.7 g/dL (12.0-15.5); MEAN CORPUSCULAR HEMOGLOBIN 30.9 pg (27.0-33.4); MEAN CORPUSCULAR HGB CONC 33.8 g/dL (32.0-36.0); MEAN CORPUSCULAR VOLUME 91 fl (80-97); MONOCYTES % (AUTO) 7.8 % (3-13); PLATELET COUNT 178 10^3/uL (150-450); RED BLOOD COUNT 3.78 10^6/uL (3.72-5.28); RED CELL DISTRIBUTION WIDTH 14.7 % (11.5-14.0); SEGMENTED NEUTROPHILS % (AUTO) 68.5 % (42-78); TOTAL CELLS COUNTED % (AUTO) 100 %; WHITE BLOOD COUNT 9.2 10^3/uL (4.0-10.5)
[2018-05-19 05:04] LABS: ALANINE AMINOTRANSFERASE 68 U/L (9-52); ALBUMIN 2.9 g/dL (3.5-5.0); ALKALINE PHOSPHATASE 132 U/L (38-126); ANION GAP 8 (5-19); ASPARTATE AMINO TRANSFERASE 44 U/L (14-36); BILIRUBIN,DIRECT 0.2 mg/dL (0.0-0.4); BILIRUBIN,TOTAL 0.7 mg/dL (0.2-1.3); BLOOD UREA NITROGEN 21 mg/dL (7-20); CALCIUM 8.9 mg/dL (8.4-10.2); CARBON DIOXIDE 29 mmol/L (22-30); CHLORIDE 103 mmol/L (98-107); GLUCOSE 123 mg/dL (75-110); POTASSIUM 3.9 mmol/L (3.6-5.0); TOTAL PROTEIN 5.5 g/dL (6.3-8.2)
[2018-05-19] MEDS: LANSOPRAZOLE 30 MG TAB.RAP.DR PO SCH (05:27)
[2018-05-19] MEDS: GABAPENTIN 300 MG CAPSULE PO SCH ×3 (05:27→21:25)
[2018-05-19] MEDS ORDERED: BUPIVACAINE HCL 0.5 % INJ/PF 30 ML SDV ONE (07:12)
[2018-05-19] MEDS ORDERED: KETAMINE HCL INJ 500 MG/10 ML VIAL ONE (07:24)
[2018-05-19] MEDS ORDERED: KETOROLAC TROMETHAMINE 60 MG/2 ML SDV ONE (07:24)
[2018-05-19] MEDS ORDERED: PROPOFOL INJ 200 MG/20 ML VIAL IV ONE (07:25)
[2018-05-19] MEDS ORDERED: FENTANYL CITRATE INJ/PF 100 MCG/2 ML AMPUL ONE ×2 (07:25→10:39)
[2018-05-19] MEDS ORDERED: ONDANSETRON HCL INJ/PF 4 MG/2 ML SDV ONE (07:25)
[2018-05-19] MEDS ORDERED: ACETAMINOPHEN 1,000 MG/100 ML RTUPB IV ONE (07:25)
[2018-05-19] MEDS ORDERED: DEXAMETHASONE SOD PHOSPHATE INJ 4 MG/1 ML VIAL ONE (07:25)
[2018-05-19] MEDS ORDERED: MIDAZOLAM 2 MG/2 ML INJ ONE (07:25)
[2018-05-19] MEDS ORDERED: BUPIVACAINE HCL/DEX-WATER/PF 15 MG/2 ML AMPULE ONE (07:26)
[2018-05-19] MEDS ORDERED: EPHEDRINE SULFATE INJ 50 MG/1 ML AMPULE ONE (07:26)
--- NOTE | 2018-05-19 08:05 | PDOC PROGRESS REPORT ---
Subjective Progress Note for:: 05/19/18 Subjective:: Patient lying in bed comfortably. Did have issues with pain yesterday but currently controlled. Denies chest pain or shortness of breath. Reason For Visit: FALL AT HOME, DISTAL FEMORAL FRACTURE Physical Exam Vital Signs: Temp Pulse Resp BP Pulse Ox 99.4 F 71 18 111/53 L 92 05/19/18 07:31 05/19/18 07:31 05/19/18 07:31 05/19/18 07:31 05/19/18 07:31 Intake & Output 05/18/18 05/19/18 05/20/18 06:59 06:59 06:59 Intake Total 1816 1741 Output Total 2475 1725 Balance -659 16 Weight 103.9 kg 102.3 kg Musculoskeletal exam: PRESENT: other - Left lower extremity: Knee immobilizer intact. Appropriate tenderness to palpation. Intact plantar flexion/ dorsiflexion. No calf tenderness. Results Laboratory Results: 05/19/18 04:21 05/19/18 04:21 05/19/18 05/19/18 04:21 04:21 WBC 9.2 RBC 3.78 Hgb 11.7 L Hct 34.5 L MCV 91 MCH 30.9 MCHC 33.8 RDW 14.7 H Plt Count 178 Seg Neutrophils % 68.5 Lymphocytes % 19.0 Monocytes % 7.8 Eosinophils % 3.8 Basophils % 0.9 Absolute Neutrophils 6.3 Absolute Lymphocytes 1.7 Absolute Monocytes 0.7 Absolute Eosinophils 0.3 Absolute Basophils 0.1 Sodium 140.0 Potassium 3.9 Chloride 103 Carbon Dioxide 29 Anion Gap 8 BUN 21 H Creatinine 0.82 Est GFR ( Amer) > 60 Est GFR (Non-Af Amer) > 60 Glucose 123 H Calcium 8.9 Total Bilirubin 0.7 AST 44 H ALT 68 H Alkaline Phosphatase 132 H Total Protein 5.5 L Albumin 2.9 L 05/16/18 05/16/18 14:29 14:29 Creatine Kinase 122 CK-MB (CK-2) 2.23 Troponin I 0.013 Impressions: Femur X-Ray 05/16/18 12:50 IMPRESSION: Acute spiral fracture distal left femoral diaphysis, extending just up to the femoral component of a left total knee replacement Question artifact versus fracture over the left innominate bone at the upper edge of the field of view. AP pelvis film recommended. Knee X-Ray 05/16/18 12:51 IMPRESSION: Acute spiral fracture distal left femoral diaphysis extending just up to the edge of the femoral component of a total knee replacement Abdomen Ultrasound 05/17/18 00:00 IMPRESSION: Study is limited due to body habitus and overlying bowel gas. The liver was poorly visualized on this study. Consider CT scan if there is high concern for acute pathology. Status post cholecystectomy. Chest X-Ray 05/18/18 00:00 IMPRESSION: NO ACUTE RADIOGRAPHIC FINDING IN THE CHEST. Assessment & Plan - Diagnosis (1) Fracture of distal femur Qualifiers: Encounter type: initial encounter Fracture type: closed Fracture morphology: unspecified fracture morphology Laterality: left Qualified Code( s): S72.402A - Unspecified fracture of lower end of left femur, initial encounter for closed fracture Is this a current diagnosis for this admission?: Yes Plan: Patient sustained a periprosthetic distal femur fracture. I have discussed treatment options with the patient and the daughter given her multiple comorbidities she is not a great surgical candidate however given the amount of displacement and location would recommend operative intervention. Patient has been considered moderate risk for operative intervention. Appreciate cardiology input. At this point we will proceed with open reduction internal fixation possible intramedullary nail left distal femur fracture. Risks and benefits have been explained to the daughter risks including anesthetic complications, excessive bleeding, infection, injury to surrounding nerves, vessels and tendons, bruising, healing difficulties, scar formation, posttraumatic arthritis and any unforseen complication. She has verbalized understanding consented for the procedure.
[2018-05-19] MEDS ORDERED: EPINEPHRINE INJ/PF 1 MG/1 ML AMPULE ONE (08:09)
[2018-05-19] MEDS ORDERED: CEFAZOLIN INJ 1 GM VIAL ONE (09:13)
[2018-05-19] MEDS ORDERED: PROMETHAZINE HCL INJ 25 MG/1 ML VIAL IV PRN ×2 (09:43)
[2018-05-19] MEDS ORDERED: MORPHINE SULFATE 10 MG/ML INJ IV PRN (09:43)
[2018-05-19] MEDS ORDERED: FENTANYL CITRATE INJ/PF 100 MCG/2 ML AMPUL IV PRN ×3 (09:43)
[2018-05-19] MEDS ORDERED: DIPHENHYDRAMINE HCL 50 MG/ML VIAL IV PRN (09:43)
[2018-05-19] MEDS ORDERED: MEPERIDINE HCL/PF INJ 25 MG/1 ML DISP.SYRIN IV PRN (09:43)
[2018-05-19] MEDS ORDERED: ONDANSETRON HCL INJ/PF 4 MG/2 ML SDV IV PRN (09:43)
--- NOTE | 2018-05-19 09:59 | PDOC PROGRESS REPORT ---
Subjective Progress Note for:: 05/19/18 Subjective:: Patient is currently doing fair Still complaining of pain on the fracture site getting better after adding the oxycodone Patient's ultrasound of the abdomen did not show any acute finding Patient's LFTs are coming down Patient was also seen by cardiology all of the echocardiogram wait for the cardiac clearance Discussed with the daughter on the bedside regarding the patient's current conditions with the multiple comorbidity with always some high risk for the surgery but patient also suffering with this fractures without interventions patient also not getting better Reason For Visit: FALL AT HOME, DISTAL FEMORAL FRACTURE Physical Exam Vital Signs: Temp Pulse Resp BP Pulse Ox 99.4 F 71 18 111/53 L 92 05/19/18 07:31 05/19/18 07:31 05/19/18 07:31 05/19/18 07:31 05/19/18 07:31 Intake & Output 05/18/18 05/19/18 05/20/18 06:59 06:59 06:59 Intake Total 1816 1741 Output Total 2475 1725 Balance -659 16 Weight 103.9 kg 102.3 kg General appearance: PRESENT: no acute distress, well-developed, well-nourished Head exam: PRESENT: atraumatic, normocephalic Eye exam: PRESENT: conjunctiva pink, EOMI, PERRLA. ABSENT: scleral icterus Ear exam: PRESENT: normal external ear exam Mouth exam: PRESENT: moist, tongue midline Neck exam: PRESENT: full ROM. ABSENT: carotid bruit, JVD, lymphadenopathy, thyromegaly Respiratory exam: PRESENT: clear to auscultation julio Cardiovascular exam: PRESENT: RRR. ABSENT: diastolic murmur, rubs, systolic murmur Pulses: PRESENT: normal dorsalis pedis pul, +2 pedal pulses bilateral Vascular exam: PRESENT: normal capillary refill GI/Abdominal exam: PRESENT: normal bowel sounds, soft. ABSENT: distended, guarding, mass, organolmegaly, rebound, tenderness Rectal exam: PRESENT: deferred Neurological exam: PRESENT: alert, awake, oriented to person, oriented to place , oriented to time, oriented to situation, CN II-XII grossly intact. ABSENT: motor sensory deficit Psychiatric exam: PRESENT: appropriate affect, normal mood. ABSENT: homicidal ideation, suicidal ideation Skin exam: PRESENT: dry, intact, warm. ABSENT: cyanosis, rash Results Laboratory Results: 05/19/18 04:21 05/19/18 04:21 05/19/18 05/19/18 04:21 04:21 WBC 9.2 RBC 3.78 Hgb 11.7 L Hct 34.5 L MCV 91 MCH 30.9 MCHC 33.8 RDW 14.7 H Plt Count 178 Seg Neutrophils % 68.5 Lymphocytes % 19.0 Monocytes % 7.8 Eosinophils % 3.8 Basophils % 0.9 Absolute Neutrophils 6.3 Absolute Lymphocytes 1.7 Absolute Monocytes 0.7 Absolute Eosinophils 0.3 Absolute Basophils 0.1 Sodium 140.0 Potassium 3.9 Chloride 103 Carbon Dioxide 29 Anion Gap 8 BUN 21 H Creatinine 0.82 Est GFR ( Amer) > 60 Est GFR (Non-Af Amer) > 60 Glucose 123 H Calcium 8.9 Total Bilirubin 0.7 AST 44 H ALT 68 H Alkaline Phosphatase 132 H Total Protein 5.5 L Albumin 2.9 L 05/16/18 05/16/18 14:29 14:29 Creatine Kinase 122 CK-MB (CK-2) 2.23 Troponin I 0.013 Impressions: Femur X-Ray 05/16/18 12:50 IMPRESSION: Acute spiral fracture distal left femoral diaphysis, extending just up to the femoral component of a left total knee replacement Question artifact versus fracture over the left innominate bone at the upper edge of the field of view. AP pelvis film recommended. Knee X-Ray 05/16/18 12:51 IMPRESSION: Acute spiral fracture distal left femoral diaphysis extending just up to the edge of the femoral component of a total knee replacement Abdomen Ultrasound 05/17/18 00:00 IMPRESSION: Study is limited due to body habitus and overlying bowel gas. The liver was poorly visualized on this study. Consider CT scan if there is high concern for acute pathology. Status post cholecystectomy. Chest X-Ray 05/18/18 00:00 IMPRESSION: NO ACUTE RADIOGRAPHIC FINDING IN THE CHEST. Assessment & Plan - Diagnosis (1) Fracture of distal femur Qualifiers: Encounter type: initial encounter Fracture type: closed Fracture morphology: unspecified fracture morphology Laterality: left Qualified Code( s): S72.402A - Unspecified fracture of lower end of left femur, initial encounter for closed fracture Is this a current diagnosis for this admission?: Yes Plan: Patient is scheduled for the surgery (2) Chronic obstructive airway disease Qualifiers: COPD type: chronic bronchitis Chronic bronchitis type: unspecified Qualified Code(s): J42 - Unspecified chronic bronchitis Is this a current diagnosis for this admission?: Yes Plan: chest x-ray is all clear Continues as needed nebulizer treatment (3) Coronary artery disease Qualifiers: Coronary Disease-Associated Artery/Lesion type: [place] artery [place] vs. transplanted heart: [place] heart Associated angina: without angina Qualified Code(s): I25.10 - Atherosclerotic heart disease of [place] coronary artery without angina pectoris Is this a current diagnosis for this admission?: Yes Plan: Follow with cardiology (4) Diabetes mellitus type 2 in obese Is this a current diagnosis for this admission?: Yes Plan: Continues to current medication (5) Morbid obesity due to excess calories Is this a current diagnosis for this admission?: Yes (6) Opioid dependence Qualifiers: Substance use status: uncomplicated Qualified Code(s): F11.20 - Opioid dependence, uncomplicated Is this a current diagnosis for this admission?: Yes (7) PAD (peripheral artery disease) Is this a current diagnosis for this admission?: Yes - Time Time Spent with patient: 15-24 minutes Medications reviewed and adjusted accordingly: Yes Anticipated discharge: SNF Within: Other - Inpatient Certification Based on my medical assessment, after consideration of the patient's comorbidities, presenting symptoms, or acuity I expect that the services needed warrant INPATIENT care.: Yes I certify that my determination is in accordance with my understanding of Medicare's requirements for reasonable and necessary INPATIENT services [42 CFR 412.3e].: Yes Medical Necessity: Need Close Monitoring Due to Risk of Patient Decompensation, Need for IV Antibiotics, Need for Surgery Post Hospital Care: D/C Predictive Maintenance Specialist Documentation - Plan Summary Plan Summary: Patient is currently going for the surgery will continues to follow after surgery we will repeat the EKG repeat the CBC and Chem-7 in the morning
[2018-05-19] MEDS ORDERED: SUCCINYLCHOLINE CHLORIDE INJ 200 MG/10 ML VIAL ONE (11:03)
[2018-05-19] MEDS ORDERED: VANCOMYCIN HCL INJ 1000 MG VIAL ONE (11:10)
[2018-05-19] MEDS ORDERED: RINGERS SOLUTION,LACTATED 1,000 ML IV PRN (11:57)
--- NOTE | 2018-05-19 12:08 | Operative Report ---
Operative Report DATE OF SURGERY: 05/19/18 PREOPERATIVE DIAGNOSIS: Left periprosthetic distal femur fracture POSTOPERATIVE DIAGNOSIS: Same OPERATION: Intramedullary nail left periprosthetic distal femur fracture SURGEON: SADIE QUINTANA ANESTHESIA: Spinal COMPLICATIONS: None ESTIMATED BLOOD LOSS: 250cc PROCEDURE: Indication for above procedure: 88-year-old female who sustained a fall onto her left side resulting in a periprosthetic femur fracture. Patient was admitted to the hospitalist service. She received a medical and cardiology workup which deemed the patient moderate risk for operative treatment. Discussed treatment options with the patient and daughter including operative versus nonoperative intervention. After discussing risks and benefits of both joint decision was made to proceed with operative treatment. Procedure In Detail: Patient was seen and evaluated in the preoperative holding area. The left lower extremity was initialized and marked. Patient received 2g of Ancef IV for bacterial prophylaxis. Patient was taken back to the operative room where transferred to the operative table and given spinal anesthesia once they were adequately anesthetized a nonsterile tourniquet was placed on the lower extremity. A surgical team debriefing was performed ensuring all instrumentation was available, the surgical procedure was discussed with possible concerns reviewed. The upper extremity was prepped with ChloraPrep and draped in a sterile fashion. A timeout was done identifying correct patient, procedure and extremity everyone in attendance agree with this and verbalized no concerns. The extremity was exsanguinated the tourniquet was inflated to 300 mmHg. Previous longitudinal skin incision made over the anterior aspect of the knee was utilized. A medial parapatellar approach performed. The patella was then retracted the deep portion of the MCL was released from the medial aspect of the tibia. Adhesions along the patellar tendon were excised. The anterior aspect of the total knee was then visualized. The guidepin was placed along the box within the total knee and advanced along the distal aspect of the femur. AP and lateral projection was obtained confirming appropriate placement. 2 stab incisions were made medially and laterally while applying distal traction a periarticular reduction tenaculum was placed around the fracture to maintain reduction. Once adequate placement was obtained the opening reamer was utilized. Ball- tipped guidewire was then passed to the distal aspect of the total hip arthroplasty. The measuring device read approximately 250 mm distance. The tourniquet was then deflated. I began reaming up to 13 mm beginning with a 9 mm reamer. A 12 mm x 240 mm retrograde nail was then advanced while maintaining reduction. AP and lateral projection were obtained confirming appropriate placement of the nail. The aiming arm was placed in the trocar advanced to the skin a stab incision was made. Trocar advanced to the cortex. This was drilled bicortically and the appropriate size locking screw placed. Similarly a second distal locking screw was placed from anterior lateral to medial. I then proceeded with placement of the distal locking bolt. The near 4 cortices were drilled in the guidepin advanced. I then measured a 75 mm locking bolt. The locking bolt was then advanced both medially and laterally obtaining fixation distally. Fixation was then completed with an additional distal locking screw placed from anterior medial to lateral. Perfect circles were then obtained approximately 2 stab incisions were made. Blunt dissection performed to the anterior aspect of the femur. The appropriate sized locking screw was placed into the static and dynamic holes successfully locking proximally. Periarticular reduction tenaculum was then removed. Radiographs demonstrated moravian of alignment on lateral view with maintained varus/valgus alignment on AP view with minimal shortening or angulation. Aiming arm was then removed. Wounds were then copiously irrigated with normal saline. Any peripheral bleeding was controlled with cautery. The capsule was closed with interrupted # 2 Ethibond. Subcutaneous tissue closed with 2-0 and 3-0 Vicryl suture. Skin was closed with yuliya. 30 cc of 0.5% bupivacaine without epinephrine was injected for postoperative pain control. Wound was dressed with Acticoat and OpSite, 4 x 4's ABDs and Pino bandage. Patient was placed in previous preoperative knee immobilizer. Sponge counts, instrument counts, needle counts counts were correct. Patient was then awoken from anesthesia. Transferred from the operating room table to the operating room stretcher. There was no intraoperative complications patient tolerated procedure well stable to PACU. Postoperative plan: Patient will begin physical therapy postop day 1 maintain nonweightbearing. Will be started on Xarelto for DVT prophylaxis.
[2018-05-19] MEDS ORDERED: METOPROLOL TARTRATE PF/INJ 5 MG/5 ML SDV IV ONE (12:12)
[2018-05-19 12:59] LABS: HEMOGLOBIN 11.3 g/dL (12.0-15.5); MEAN CORPUSCULAR HEMOGLOBIN 30.6 pg (27.0-33.4); MEAN CORPUSCULAR HGB CONC 33.1 g/dL (32.0-36.0); MEAN CORPUSCULAR VOLUME 93 fl (80-97); PLATELET COUNT 206 10^3/uL (150-450); RED BLOOD COUNT 3.68 10^6/uL (3.72-5.28); RED CELL DISTRIBUTION WIDTH 14.7 % (11.5-14.0); WHITE BLOOD COUNT 17.3 10^3/uL (4.0-10.5)
[2018-05-19] MEDS: LORATADINE 10 MG TABLET PO SCH (14:28)
[2018-05-19] MEDS: DOCUSATE SODIUM 100 MG CAPSULE PO SCH ×2 (14:28→17:52)
[2018-05-19] MEDS: DULOXETINE HCL 30 MG CAPSULE.DR PO SCH (14:28)
[2018-05-19] MEDS: PREDNISONE 5 MG TABLET PO SCH (14:29)
[2018-05-19] MEDS: SITAGLIPTIN PHOSPHATE 50 MG TABLET PO SCH (14:29)
[2018-05-19] MEDS: METOPROLOL TARTRATE 25 MG TABLET PO SCH ×2 (14:30→21:26)
[2018-05-19] MEDS: ENOXAPARIN SODIUM INJ 40 MG/0.4 ML DISP.SYRIN SUBCUT SCH (14:30)
[2018-05-19] MEDS: NYSTATIN TOPICAL POWDER 15 GM TP SCH ×2 (14:31→17:56)
[2018-05-19] MEDS: MEMANTINE HCL 10 MG TABLET PO SCH ×2 (14:32→17:53)
[2018-05-19] MEDS: MULTIVITAMIN TABLET PO SCH (14:32)
[2018-05-19] MEDS: FLUTICASONE/UMECLIDIN/VILANTER 100-62.5-25 MCG/DOSE IH SCH (14:32)
[2018-05-19] MEDS: LISINOPRIL 5 MG TABLET PO SCH ×2 (14:32→21:26)
[2018-05-19] MEDS: ASCORBIC ACID 500 MG TABLET PO SCH ×2 (14:33→17:52)
[2018-05-19] MEDS: CEFAZOLIN 2 GM/D5W RTU 2 GM/50 ML RTUPB IV SCH ×2 (14:33→17:56)
[2018-05-19] MEDS: OXYCODONE HCL IR 5 MG TABLET PO PRN ×2 (14:59→18:54)
[2018-05-19] MEDS: CYCLOBENZAPRINE HCL 10 MG TABLET PO PRN (15:00)
--- NOTE | 2018-05-19 17:17 | RADIOLOGY REPORT (SQ) ---
EXAM DESCRIPTION: NO CHG FLUORO; FEMUR LEFT COMPLETED DATE/TIME: 05/19/2018 4:55 pm REASON FOR STUDY: LEFT DISTAL FEMUR ORIF COMPARISON: 05/16/2018. FLUOROSCOPY TIME: 3.5 minutes. 10 images saved to PACS. TECHNIQUE: Intra-operative images acquired during surgical procedure to evaluate progress. NUMBER OF IMAGES: 10 images. LIMITATIONS: None. FINDINGS: Images of the femur acquired during surgical fixation and placement of hardware. IMPRESSION: IMAGE(S) OBTAINED DURING PROCEDURE. COMMENT: Quality ID 145: Final reports for procedures using fluoroscopy that document radiation exp osure indices, or exposure time and number of fluorographic images (if radiation exposure indices are not available) Please consult full operative report of the attending physician for description of the procedure. TECHNICAL DOCUMENTATION: JOB ID: [id number] [employer]- All Rights Reserved Reading location - IP/workstation name: [email or web address]
--- NOTE | 2018-05-19 17:17 | RADIOLOGY REPORT (SQ) ---
EXAM DESCRIPTION: NO CHG FLUORO; FEMUR LEFT COMPLETED DATE/TIME: 05/19/2018 4:55 pm REASON FOR STUDY: LEFT DISTAL FEMUR ORIF COMPARISON: 05/16/2018. FLUOROSCOPY TIME: 3.5 minutes. 10 images saved to PACS. TECHNIQUE: Intra-operative images acquired during surgical procedure to evaluate progress. NUMBER OF IMAGES: 10 images. LIMITATIONS: None. FINDINGS: Images of the femur acquired during surgical fixation and placement of hardware. IMPRESSION: IMAGE(S) OBTAINED DURING PROCEDURE. COMMENT: Quality ID 145: Final reports for procedures using fluoroscopy that document radiation exp osure indices, or exposure time and number of fluorographic images (if radiation exposure indices are not available) Please consult full operative report of the attending physician for description of the procedure. TECHNICAL DOCUMENTATION: JOB ID: [id number] [employer]- All Rights Reserved Reading location - IP/workstation name: [email or web address]
--- NOTE | 2018-05-19 20:25 | Progress Note ---
Provider Note Provider Note: Cardiology progress notes by Dr. Dora Gonzalez on 05/19/2018. SUBJECTIVE:. The patient is in some distress due to her postoperative pain. She will be getting stronger analgesics for this. She denies any chest pain or discomfort. There is no PND orthopnea. There is no palpitations. She has no shortness of breath. There is no leg edema. There have patient remains in sinus rhythm. There is no TIA or CVA symptoms. There is no nausea vomiting. There is no dizziness, syncope or near syncope. PHYSICAL EXAMINATION: The patient is moderately obese. She is well-groomed. Selected Entries 05/19/18 14:37 Temperature 98.5 F Pulse Rate 98 Respiratory 16 Rate Blood Pressure 119/68 O2 Sat by Pulse 93 Oximetry Oxygen Delivery Nasal Cannula Method ( includes room air) Oxygen Flow 2 Rate HEAD: Head is atraumatic normocephalic. EYES: Pupils are equal round regular react to light and accommodation. Extraocular movements are normal. There is no clinical pallor. There is no scleral icterus. EARS: Tympanic membranes are intact. External auditory canals are clear. NOSE: There is no deviated nasal septum. There is no inflammation of the nasal mucous membrane. MOUTH: Mucous membranes of the mouth are moist. Tongue is moist. There is no ulcers. There is no bleeding from the gums. THROAT: There is no redness of the oropharynx, and no exudates. SKIN: There is no petechia or ecchymosis. There is no skin lesions or skin rashes. NECK: Is supple. There is no JVD. Carotids are equal there is no bruits. There is no lymphadenopathy. There is no goiter. There is no accessory muscles of respiration use. Trachea central. LUNGS: Show diminished air entry and prolonged expiration throughout. There is hyperresonance on percussion. There is no chest wall tenderness on palpation. There is no rhonchi, rales or wheezing. HEART: S1-S2 is heard there is no S3 gallop there is no S4 gallop there is systolic murmur left sternal border and apex there is no rub. ABDOMEN: Is obese. Nontender. There is no hepatosplenomegaly. Bowel sounds are well heard. There is no masses. EXTREMITIES: Femorals are deep femorals are diminished. There is no femoral bruits. Leg pulses are diminished. There is no pedal edema. There is foreshortening of the left lower extremity there is no DVT or cellulitis. There is no calf tenderness. There is no cyanosis or clubbing. SR. PAYROLL PROCESSOR: The patient is conscious awake alert seems to be oriented x2. With no focal deficits. Psychiatric the patient does not appear to be agitated or anxious. In-depth psychiatric psychiatric exam not done. 05/19/18 05/19/18 05/19/18 04:21 12:48 12:48 WBC 17.3 H RBC 3.68 L Hgb 11.3 L Hct 34.0 L Plt Count 206 Sodium 140.0 Potassium 3.9 Chloride 103 Carbon Dioxide 29 BUN 21 H Creatinine 0.82 Est GFR (Non-Af Amer) > 60 Glucose 123 H Calcium 8.9 Total Bilirubin 0.7 Direct Bilirubin 0.2 Neonat Total Bilirubin Not Reportable Neonat Direct Bilirubin Not Reportable Neonat Indirect Bili Not Reportable AST 44 H ALT 68 H Alkaline Phosphatase 132 H Troponin I < 0.012 Total Protein 5.5 L Albumin 2.9 L IMPRESSION/RECOMMENDATION: 1. Status post accidental fall, and distal femoral fracture. Patient is status post surgical repair.Stable. 2. Coronary artery disease. History of coronary bypass graft surgery. At present no anginal symptoms.Negative troponin.Will repeat in AM,along with EKG. 3. Cardiomyopathy with moderately reduced LV ejection fraction Clint patient without any symptoms. Would recommend continue patient is beta- katherine. Would add an JOEL inhibitor. We will start the patient on a low-dose of lisinopril 2.5 mg p.o. every 12 hours and increase as tolerated. In view of the patient's cardia myopathy would recommend decreasing the patient's IV fluids to 40 mL/h. 4. Hypertension: Blood pressure seems to be well-controlled. Continue current antihypertensives. 5. Diabetes mellitus with diabetic neuropathy. Continue antidiabetic medication. 6. History of bipolar disorder, and depression and mild dementia. Seems to be well-controlled. Continue psych medications. 7. Abnormal liver function tests:? Etiology. Review of the patient's medications do not show that the patient is on a statin.LFT's ARE TRENDING DOWN. Medications reviewed.Discussed with patient and daughter.Discussed with . Medical decision making is of moderate complexity.40 minutes spent on patient with more than 50% of time spent on direct patient care.
[2018-05-20] MEDS: CEFAZOLIN 2 GM/D5W RTU 2 GM/50 ML RTUPB IV SCH ×4 (00:29→17:47)
[2018-05-20] MEDS: CYCLOBENZAPRINE HCL 10 MG TABLET PO PRN ×2 (05:15→15:22)
[2018-05-20] MEDS: GABAPENTIN 300 MG CAPSULE PO SCH ×3 (05:15→21:02)
[2018-05-20] MEDS: LANSOPRAZOLE 30 MG TAB.RAP.DR PO SCH (05:16)
[2018-05-20] MEDS: OXYCODONE HCL IR 5 MG TABLET PO PRN (05:16)
[2018-05-20 05:30] LABS: ABSOLUTE MONOCYTES (AUTO) 0.9 10^3/uL (0.1-1.4); ABSOLUTE NEUT (AUTO) 8.1 10^3/uL (1.7-8.2); BASOPHILS % (AUTO) 0.3 % (0-2); EOSINOPHILS % (AUTO) 0.3 % (0-6); HEMATOCRIT 26.3 % (36.0-47.0); LYMPHOCYTES % (AUTO) 10.2 % (13-45); MEAN CORPUSCULAR HEMOGLOBIN 31.1 pg (27.0-33.4); MEAN CORPUSCULAR HGB CONC 34.2 g/dL (32.0-36.0); MEAN CORPUSCULAR VOLUME 91 fl (80-97); MONOCYTES % (AUTO) 8.9 % (3-13); PLATELET COUNT 184 10^3/uL (150-450); RED BLOOD COUNT 2.89 10^6/uL (3.72-5.28); RED CELL DISTRIBUTION WIDTH 14.5 % (11.5-14.0); SEGMENTED NEUTROPHILS % (AUTO) 80.3 % (42-78); TOTAL CELLS COUNTED % (AUTO) 100 %
[2018-05-20 05:52] LABS: ALANINE AMINOTRANSFERASE 41 U/L (9-52); ALBUMIN 2.7 g/dL (3.5-5.0); ALKALINE PHOSPHATASE 94 U/L (38-126); ANION GAP 9 (5-19); ASPARTATE AMINO TRANSFERASE 38 U/L (14-36); BILIRUBIN,DIRECT 0.1 mg/dL (0.0-0.4); BILIRUBIN,TOTAL 0.3 mg/dL (0.2-1.3); BLOOD UREA NITROGEN 25 mg/dL (7-20); CALCIUM 8.4 mg/dL (8.4-10.2); CARBON DIOXIDE 28 mmol/L (22-30); CHLORIDE 105 mmol/L (98-107); GLUCOSE 162 mg/dL (75-110); POTASSIUM 4.5 mmol/L (3.6-5.0); SODIUM 142.3 mmol/L (137-145)
--- NOTE | 2018-05-20 07:47 | EKG REPORT ---
SEVERITY:- ABNORMAL ECG - SINUS RHYTHM NONSPECIFIC INTRAVENTRICULAR CONDUCTION DELAY BORDERLINE INFERIOR Q WAVES : Confirmed by: Boyd Bob MD 20-May-2018 07:46:50
--- NOTE | 2018-05-20 08:04 | PDOC PROGRESS REPORT ---
Subjective Progress Note for:: 05/20/18 Subjective:: According to nursing staff she was having pain and difficulty sleeping overnight. Denies other complaints. Denies chest pain or shortness of breath. Reason For Visit: FALL AT HOME, DISTAL FEMORAL FRACTURE Physical Exam Vital Signs: Temp Pulse Resp BP Pulse Ox 97.9 F 74 20 102/46 L 95 05/20/18 07:25 05/20/18 07:25 05/20/18 07:25 05/20/18 07:25 05/20/18 07:25 Intake & Output 05/19/18 05/20/18 05/21/18 06:59 06:59 06:59 Intake Total 1741 4220 Output Total 1725 1800 Balance 16 2420 Weight 102.3 kg 102.3 kg Musculoskeletal exam: PRESENT: other - Left lower extremity: Dressing clean/dry/ intact no erythema or drainage. Moderate thigh swelling without change, intact plantarflexion/dorsiflexion. No sensory deficits. No calf tenderness. Results Laboratory Results: 05/20/18 05:15 05/20/18 05:15 05/19/18 05/19/18 05/20/18 09:00 12:48 05:15 WBC 17.3 H RBC 3.68 L Hgb 11.3 L Hct 34.0 L MCV 93 MCH 30.6 MCHC 33.1 RDW 14.7 H Plt Count 206 Seg Neutrophils % Lymphocytes % Monocytes % Eosinophils % Basophils % Absolute Neutrophils Absolute Lymphocytes Absolute Monocytes Absolute Eosinophils Absolute Basophils Sodium 142.3 Potassium 4.5 Chloride 105 Carbon Dioxide 28 Anion Gap 9 BUN 25 H Creatinine 0.80 Est GFR ( Amer) > 60 Est GFR (Non-Af Amer) > 60 Glucose 162 H Calcium 8.4 Total Bilirubin 0.3 AST 38 H ALT 41 Alkaline Phosphatase 94 Total Protein 5.0 L Albumin 2.7 L Blood Type B POSITIVE Antibody Screen NEGATIVE 05/20/18 05:15 WBC 10.0 RBC 2.89 L Hgb 9.0 L D Hct 26.3 L MCV 91 MCH 31.1 MCHC 34.2 RDW 14.5 H Plt Count 184 Seg Neutrophils % 80.3 H Lymphocytes % 10.2 L Monocytes % 8.9 Eosinophils % 0.3 Basophils % 0.3 Absolute Neutrophils 8.1 Absolute Lymphocytes 1.0 Absolute Monocytes 0.9 Absolute Eosinophils 0.0 Absolute Basophils 0.0 Sodium Potassium Chloride Carbon Dioxide Anion Gap BUN Creatinine Est GFR ( Amer) Est GFR (Non-Af Amer) Glucose Calcium Total Bilirubin AST ALT Alkaline Phosphatase Total Protein Albumin Blood Type Antibody Screen 05/16/18 05/16/18 05/19/18 14:29 14:29 12:48 Creatine Kinase 122 CK-MB (CK-2) 2.23 Troponin I 0.013 < 0.012 05/20/18 05:15 Creatine Kinase CK-MB (CK-2) Troponin I < 0.012 Impressions: Knee X-Ray 05/16/18 12:51 IMPRESSION: Acute spiral fracture distal left femoral diaphysis extending just up to the edge of the femoral component of a total knee replacement Abdomen Ultrasound 05/17/18 00:00 IMPRESSION: Study is limited due to body habitus and overlying bowel gas. The liver was poorly visualized on this study. Consider CT scan if there is high concern for acute pathology. Status post cholecystectomy. Chest X-Ray 05/18/18 00:00 IMPRESSION: NO ACUTE RADIOGRAPHIC FINDING IN THE CHEST. Femur X-Ray 05/19/18 00:00 IMPRESSION: IMAGE(S) OBTAINED DURING PROCEDURE. Fluoroscopy 05/19/18 00:00 IMPRESSION: IMAGE(S) OBTAINED DURING PROCEDURE. Assessment & Plan - Diagnosis (1) Fracture of distal femur Qualifiers: Encounter type: initial encounter Fracture type: closed Fracture morphology: unspecified fracture morphology Laterality: left Qualified Code( s): S72.402A - Unspecified fracture of lower end of left femur, initial encounter for closed fracture Is this a current diagnosis for this admission?: Yes Plan: Postop day #1 status post left retrograde nail periprosthetic hip/femoral fracture 1. Physical therapy nonweightbearing left lower extremity knee immobilizer when out of bed 2. Acute blood loss anemia current H&H 03/20.3 continue to monitor 3. Xarelto for DVT prophylaxis 4. Discharge planning care home facility/prison
[2018-05-20] MEDS: ASCORBIC ACID 500 MG TABLET PO SCH ×2 (10:01→17:46)
[2018-05-20] MEDS: PRENATAL VITAMIN W DHA CAPSULE PO SCH (10:01)
[2018-05-20] MEDS: MEMANTINE HCL 10 MG TABLET PO SCH ×2 (10:01→17:46)
[2018-05-20] MEDS: MULTIVITAMIN TABLET PO SCH (10:01)
[2018-05-20] MEDS: LORATADINE 10 MG TABLET PO SCH (10:01)
[2018-05-20] MEDS: DOCUSATE SODIUM 100 MG CAPSULE PO SCH ×2 (10:01→17:46)
[2018-05-20] MEDS: DULOXETINE HCL 30 MG CAPSULE.DR PO SCH (10:02)
[2018-05-20] MEDS: SITAGLIPTIN PHOSPHATE 50 MG TABLET PO SCH (10:02)
[2018-05-20] MEDS: METOPROLOL TARTRATE 25 MG TABLET PO SCH ×2 (10:03→21:03)
[2018-05-20] MEDS: PREDNISONE 5 MG TABLET PO SCH (10:03)
[2018-05-20] MEDS: LISINOPRIL 5 MG TABLET PO SCH ×2 (10:03→21:04)
[2018-05-20] MEDS: ENOXAPARIN SODIUM INJ 40 MG/0.4 ML DISP.SYRIN SUBCUT SCH (10:04)
[2018-05-20] MEDS: FLUTICASONE/UMECLIDIN/VILANTER 100-62.5-25 MCG/DOSE IH SCH (10:04)
[2018-05-20] MEDS: NYSTATIN TOPICAL POWDER 15 GM TP SCH ×2 (10:05→17:46)
[2018-05-20] MEDS ORDERED: NORMAL SALINE 250 ML IV ONE (14:30)
--- NOTE | 2018-05-20 19:00 | Progress Note ---
Provider Note Provider Note: CARDIOLOGY PROGRESS NOTES by Dr. Dora Gonzalez on 05/20/2018. SUBJECTIVE: The patient still has some postop pain. She denies any chest pain or discomfort. There is no PND orthopnea. There is no palpitations. The patient denies any shortness of breath. There is no arrhythmias seen on the monitor. There is no pedal edema. There is no TIA or CVA symptoms. Physical EXAMINATION: The patient is moderately obese. She is well-groomed. She is in mild distress due to postoperative pain. Selected Entries 05/20/18 07:25 Temperature 97.9 F Temperature Oral Source Pulse Rate 74 Respiratory 20 Rate Blood Pressure 102/46 L Blood Pressure 64 Mean BP Location Right Arm BP Position Supine O2 Sat by Pulse 95 Oximetry Oxygen Flow 2.00 Rate Oxygen Delivery Nasal Cannula Method HEAD: Head is atraumatic normocephalic. EYES: Pupils are equal round regular react to light and accommodation. Extraocular movements are normal. There is no clinical pallor. There is no scleral icterus. EARS: Tympanic membranes are intact. External auditory canals are clear. NOSE: There is no deviated nasal septum. There is no inflammation of the nasal mucous membrane. MOUTH: Mucous membranes of the mouth are moist. Tongue is moist. There is no ulcers. There is no bleeding from the gums. THROAT: There is no redness of the oropharynx, and no exudates. SKIN: There is no petechia or ecchymosis. There is no skin lesions or skin rashes. NECK: Is supple. There is no JVD. Carotids are equal there is no bruits. There is no lymphadenopathy. There is no goiter. There is no accessory muscles of respiration use. Trachea central. LUNGS: Show diminished air entry and prolonged expiration throughout. There is hyperresonance on percussion. There is no chest wall tenderness on palpation. There is no rhonchi, rales or wheezing. HEART: S1-S2 is heard there is no S3 gallop there is no S4 gallop there is systolic murmur left sternal border and apex there is no rub. ABDOMEN: Is obese. Nontender. There is no hepatosplenomegaly. Bowel sounds are well heard. There is no masses. EXTREMITIES: Femorals are deep femorals are diminished. There is no femoral bruits. Leg pulses are diminished. There is no pedal edema. There is foreshortening of the left lower extremity there is no DVT or cellulitis. There is no calf tenderness. There is no cyanosis or clubbing. 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 With no focal deficits. Psychiatric the patient does not appear to be agitated or anxious. In-depth psychiatric psychiatric exam not done. 05/20/18 05/20/18 05/20/18 05:15 05:15 05:15 WBC 10.0 Hgb 9.0 L D Hct 26.3 L Plt Count 184 Sodium 142.3 Potassium 4.5 Chloride 105 Carbon Dioxide 28 BUN 25 H Creatinine 0.80 Est GFR (Non-Af Amer) > 60 Glucose 162 H Calcium 8.4 Total Bilirubin 0.3 Direct Bilirubin 0.1 Neonat Total Bilirubin Not Reportable Neonat Direct Bilirubin Not Reportable Neonat Indirect Bili Not Reportable AST 38 H ALT 41 Alkaline Phosphatase 94 Troponin I < 0.012 Total Protein 5.0 L Albumin 2.7 L EKG: Shows sinus rhythm. Nonspecific IVCD. No acute changes. The patient's troponin I is negative. The patient's 24-hour total intake is 4220 mL, output is 1800 ml. IMPRESSION/RECOMMENDATION: 1. Status post accidental fall, and distal femoral fracture. Patient is status post surgical repair.Stable. 2. Coronary artery disease. History of coronary bypass graft surgery. At present no anginal symptoms. The patient's EKG shows no acute changes. The troponin is negative this was discussed with the patient. 3.Cardiomyopathy with moderately reduced LV ejection fraction,albeit patient without any symptoms. Would recommend continue patient is beta-katherine. Would add an JOEL inhibitor. We will start the patient on a low-dose of lisinopril 2.5 mg p.o. every 12 hours and increase as tolerated. In view of the patient's cardia myopathy would recommend decreasing the patient's IV fluids to 40 mL/h. 4. Hypertension: Blood pressure seems to be well-controlled. Continue current antihypertensives. 5. Diabetes mellitus with diabetic neuropathy. Continue antidiabetic medication. 6. History of bipolar disorder, and depression and mild dementia. Seems to be well-controlled. Continue psych medications. 7. Abnormal liver function tests:? Etiology. Review of the patient's medications do not show that the patient is on a statin.LFT's ARE TRENDING DOWN. Will recheck the patient's liver function tests in the a.m. Medications reviewed. Management plan discussed with attending physician. Medical decision making was of moderate complexity. 40 minutes spent on this patient, with more than 50% of time spent in direct patient care. We will follow with you.
--- NOTE | 2018-05-20 20:59 | PDOC PROGRESS REPORT ---
Subjective Progress Note for:: 05/20/18 Subjective:: She fell and sustained fracture of the left femur on , she had ORIF done yesterday blood pressure was low today, it was initially 80 systolic she was given a bolus of normal saline at 250 cc,subsequently the continuous infusion rate was increased from 40-70mm/hr Reason For Visit: FALL AT HOME, DISTAL FEMORAL FRACTURE Physical Exam Vital Signs: Temp Pulse Resp BP Pulse Ox 100.4 F 103 H 18 100/52 L 93 05/20/18 20:00 05/20/18 20:00 05/20/18 20:00 05/20/18 20:00 05/20/18 20:00 Intake & Output 05/19/18 05/20/18 05/21/18 06:59 06:59 06:59 Intake Total 1741 4220 770 Output Total 1725 1800 575 Balance 16 2420 195 Weight 102.3 kg 102.3 kg General appearance: PRESENT: no acute distress Eye exam: PRESENT: PERRLA Respiratory exam: PRESENT: clear to auscultation julio Cardiovascular exam: PRESENT: +S1, +S2 GI/Abdominal exam: PRESENT: soft Neurological exam: PRESENT: alert, CN II-XII grossly intact Results Laboratory Results: 05/20/18 05:15 05/20/18 05:15 05/20/18 05/20/18 05:15 05:15 WBC 10.0 RBC 2.89 L Hgb 9.0 L D Hct 26.3 L MCV 91 MCH 31.1 MCHC 34.2 RDW 14.5 H Plt Count 184 Seg Neutrophils % 80.3 H Lymphocytes % 10.2 L Monocytes % 8.9 Eosinophils % 0.3 Basophils % 0.3 Absolute Neutrophils 8.1 Absolute Lymphocytes 1.0 Absolute Monocytes 0.9 Absolute Eosinophils 0.0 Absolute Basophils 0.0 Sodium 142.3 Potassium 4.5 Chloride 105 Carbon Dioxide 28 Anion Gap 9 BUN 25 H Creatinine 0.80 Est GFR ( Amer) > 60 Est GFR (Non-Af Amer) > 60 Glucose 162 H Calcium 8.4 Total Bilirubin 0.3 AST 38 H ALT 41 Alkaline Phosphatase 94 Total Protein 5.0 L Albumin 2.7 L 05/16/18 05/16/18 05/19/18 14:29 14:29 12:48 Creatine Kinase 122 CK-MB (CK-2) 2.23 Troponin I 0.013 < 0.012 05/20/18 05:15 Creatine Kinase CK-MB (CK-2) Troponin I < 0.012 Impressions: Knee X-Ray 05/16/18 12:51 IMPRESSION: Acute spiral fracture distal left femoral diaphysis extending just up to the edge of the femoral component of a total knee replacement Abdomen Ultrasound 05/17/18 00:00 IMPRESSION: Study is limited due to body habitus and overlying bowel gas. The liver was poorly visualized on this study. Consider CT scan if there is high concern for acute pathology. Status post cholecystectomy. Chest X-Ray 05/18/18 00:00 IMPRESSION: NO ACUTE RADIOGRAPHIC FINDING IN THE CHEST. Femur X-Ray 05/19/18 00:00 IMPRESSION: IMAGE(S) OBTAINED DURING PROCEDURE. Fluoroscopy 05/19/18 00:00 IMPRESSION: IMAGE(S) OBTAINED DURING PROCEDURE. Assessment & Plan - Diagnosis (1) Hypotension Qualifiers: Hypotension type: unspecified hypotension type Qualified Code(s): I95.9 - Hypotension, unspecified Is this a current diagnosis for this admission?: Yes Plan: Continues IV normal saline at 70 cc/h (2) Fracture of distal femur Qualifiers: Encounter type: initial encounter Fracture type: closed Fracture morphology: unspecified fracture morphology Laterality: left Qualified Code( s): S72.402A - Unspecified fracture of lower end of left femur, initial encounter for closed fracture Is this a current diagnosis for this admission?: Yes (3) Chronic obstructive airway disease Qualifiers: COPD type: chronic bronchitis Chronic bronchitis type: unspecified Qualified Code(s): J42 - Unspecified chronic bronchitis Is this a current diagnosis for this admission?: Yes (4) Diabetes mellitus type 2 in obese Is this a current diagnosis for this admission?: Yes
[2018-05-20] MEDS: ACETAMINOPHEN 325 MG TABLET PO PRN (21:02)
[2018-05-21] MEDS: CEFAZOLIN 2 GM/D5W RTU 2 GM/50 ML RTUPB IV SCH ×4 (02:09→18:27)
[2018-05-21] MEDS: GABAPENTIN 300 MG CAPSULE PO SCH ×3 (05:25→21:26)
[2018-05-21] MEDS: ACETAMINOPHEN 325 MG TABLET PO PRN (05:30)
[2018-05-21] MEDS: LANSOPRAZOLE 30 MG TAB.RAP.DR PO SCH (05:33)
--- NOTE | 2018-05-21 07:42 | PDOC PROGRESS REPORT ---
Subjective Subjective:: According to nursing staff she was having pain. Has had low blood pressure but receiving fluids which has improved this. Currently lying in bed comfortably. Reason For Visit: FALL AT HOME, DISTAL FEMORAL FRACTURE Physical Exam Vital Signs: Temp Pulse Resp BP Pulse Ox 99.2 F 104 H 18 96/52 L 96 05/21/18 04:00 05/21/18 04:00 05/21/18 04:00 05/21/18 04:00 05/21/18 04:00 Intake & Output 05/20/18 05/21/18 05/22/18 06:59 06:59 06:59 Intake Total 4220 1447 Output Total 1800 1525 Balance 2420 -78 Weight 102.3 kg 112.8 kg Musculoskeletal exam: PRESENT: other - Left lower extremity: Dressing clean/dry/ intact. Intact plantar flexion/dorsiflexion. No calf tenderness. Dorsalis pedis pulse 2+. Cap refill less than 2 seconds. Results Laboratory Results: 05/20/18 05:15 05/16/18 05/16/18 05/19/18 14:29 14:29 12:48 Creatine Kinase 122 CK-MB (CK-2) 2.23 Troponin I 0.013 < 0.012 05/20/18 05:15 Creatine Kinase CK-MB (CK-2) Troponin I < 0.012 Impressions: Knee X-Ray 05/16/18 12:51 IMPRESSION: Acute spiral fracture distal left femoral diaphysis extending just up to the edge of the femoral component of a total knee replacement Abdomen Ultrasound 05/17/18 00:00 IMPRESSION: Study is limited due to body habitus and overlying bowel gas. The liver was poorly visualized on this study. Consider CT scan if there is high concern for acute pathology. Status post cholecystectomy. Chest X-Ray 05/18/18 00:00 IMPRESSION: NO ACUTE RADIOGRAPHIC FINDING IN THE CHEST. Femur X-Ray 05/19/18 00:00 IMPRESSION: IMAGE(S) OBTAINED DURING PROCEDURE. Fluoroscopy 05/19/18 00:00 IMPRESSION: IMAGE(S) OBTAINED DURING PROCEDURE. Assessment & Plan - Diagnosis (1) Fracture of distal femur Qualifiers: Encounter type: initial encounter Fracture type: closed Fracture morphology: unspecified fracture morphology Laterality: left Qualified Code( s): S72.402A - Unspecified fracture of lower end of left femur, initial encounter for closed fracture Is this a current diagnosis for this admission?: Yes Plan: Postop day #1 status post left retrograde nail periprosthetic hip/femoral fracture 1. Physical therapy nonweightbearing left lower extremity knee immobilizer when out of bed 2. Acute blood loss anemia likely causing patient's hypotension along with other comorbidities. Current H&H pending 3. Xarelto for DVT prophylaxis 4. Discharge planning residential facility/custodial
[2018-05-21 07:44] LABS: HEMATOCRIT 22.7 % (36.0-47.0); MEAN CORPUSCULAR HEMOGLOBIN 31.5 pg (27.0-33.4); MEAN CORPUSCULAR HGB CONC 34.3 g/dL (32.0-36.0); MEAN CORPUSCULAR VOLUME 92 fl (80-97); PLATELET COUNT 163 10^3/uL (150-450); RED BLOOD COUNT 2.48 10^6/uL (3.72-5.28); RED CELL DISTRIBUTION WIDTH 14.2 % (11.5-14.0); WHITE BLOOD COUNT 8.6 10^3/uL (4.0-10.5)
[2018-05-21 07:57] LABS: ALANINE AMINOTRANSFERASE 22 U/L (9-52); ALBUMIN 2.7 g/dL (3.5-5.0); ALKALINE PHOSPHATASE 80 U/L (38-126); ASPARTATE AMINO TRANSFERASE 61 U/L (14-36); BILIRUBIN,DIRECT 0.1 mg/dL (0.0-0.4); BILIRUBIN,TOTAL 0.5 mg/dL (0.2-1.3); CHOLESTEROL 135.35 mg/dL (0-200); TOTAL PROTEIN 4.9 g/dL (6.3-8.2); TRIGLYCERIDES 96 mg/dL (<150)
--- NOTE | 2018-05-21 07:59 | EKG REPORT ---
SEVERITY:- ABNORMAL ECG - SINUS TACHYCARDIA NONSPECIFIC INTRAVENTRICULAR CONDUCTION DELAY BORDERLINE ST DEPRESSION, ANTEROLATERAL LEADS : Confirmed by: Boyd Bob MD 21-May-2018 07:57:52
[2018-05-21 08:07] LABS: DIRECT LDL 85 mg/dL (<100)
[2018-05-21 08:29] LABS: HEMOGLOBIN 7.8 g/dL (12.0-15.5)
[2018-05-21] MEDS ORDERED: DOPAMINE HCL 800 MG/D5W 250 ML IV PRN (10:53)
[2018-05-21] MEDS: METOPROLOL TARTRATE 25 MG TABLET PO SCH ×2 (11:15→21:21)
[2018-05-21] MEDS: SITAGLIPTIN PHOSPHATE 50 MG TABLET PO SCH (11:36)
[2018-05-21] MEDS: DOCUSATE SODIUM 100 MG CAPSULE PO SCH ×2 (11:36→18:27)
[2018-05-21] MEDS: MULTIVITAMIN TABLET PO SCH (11:37)
[2018-05-21] MEDS: PRENATAL VITAMIN W DHA CAPSULE PO SCH (11:37)
[2018-05-21] MEDS: LORATADINE 10 MG TABLET PO SCH (11:37)
[2018-05-21] MEDS: MEMANTINE HCL 10 MG TABLET PO SCH ×2 (11:38→18:27)
[2018-05-21] MEDS: DULOXETINE HCL 30 MG CAPSULE.DR PO SCH (11:38)
[2018-05-21] MEDS: LISINOPRIL 5 MG TABLET PO SCH ×2 (11:38→21:22)
[2018-05-21] MEDS: PREDNISONE 5 MG TABLET PO SCH (11:41)
[2018-05-21] MEDS: ASCORBIC ACID 500 MG TABLET PO SCH ×2 (11:42→18:27)
[2018-05-21] MEDS: OXYCODONE HCL IR 5 MG TABLET PO PRN ×3 (11:45→21:26)
[2018-05-21] MEDS: NORMAL SALINE 1000 ML 1,000 ML IV PRN (11:51)
[2018-05-21] MEDS: NYSTATIN TOPICAL POWDER 15 GM TP SCH ×2 (11:52→18:27)
[2018-05-21] MEDS: FLUTICASONE/UMECLIDIN/VILANTER 100-62.5-25 MCG/DOSE IH SCH (11:52)
[2018-05-21] MEDS: ENOXAPARIN SODIUM INJ 40 MG/0.4 ML DISP.SYRIN SUBCUT SCH (11:53)
[2018-05-21] MEDS: CYCLOBENZAPRINE HCL 10 MG TABLET PO PRN ×2 (13:55→23:08)
--- NOTE | 2018-05-21 14:02 | OPERATIVE REPORT E ---
Operative Report NAME: SINAN MONTGOMERY : 1930 AGE: 88Y DATE OF SURGERY: 05/21/2018 ROOM: 336 PREOPERATIVE DIAGNOSIS: POOR VEINS FOR IV ACCESS. PATIENT NEEDED BLOOD. POSTOPERATIVE DIAGNOSIS: POOR VEINS FOR IV ACCESS. PATIENT NEEDED BLOOD. OPERATION: Placement of left internal jugular vein central line under ultrasound guidance. SURGEON: EMR BUSTILLO M.D. ANESTHESIA: Local. PROCEDURE: The patient was placed in the Trendelenburg position and the left neck prepped and draped in the usual sterile fashion. With use of the ultrasound, the left internal jugular vein was then identified, a local incision infiltrated in the skin and towards the area of internal jugular vein. The internal jugular vein was then punctured with help of the ultrasound. A guidewire was placed through the needle towards the area of the superior vena cava and the needle removed. The puncture site dilated and a triple lumen catheter was inserted through the Guidewire to a distance of about 18 cm. Guidewire was removed and all 3 ports aspirated blood easily and instilled saline easily. The incision site was then anchored with 3-0 Silk and a Biopatch placed over the incision site and a transparent dressing placed over the Biopatch and catheter. The patient tolerated procedure well. A chest x-ray will be obtained for placement. DICTATING PHYSICIAN: MER BUSTILLO M.D. [id number] PHY#: [id number] ID: [id number] JOB#: [id number] ACCT: [id number] cc:MER BUSTILLO M.D. >
--- NOTE | 2018-05-21 14:41 | RADIOLOGY REPORT (SQ) ---
EXAM DESCRIPTION: CHEST SINGLE VIEW COMPLETED DATE/TIME: 05/21/2018 2:31 pm REASON FOR STUDY: central line placement COMPARISON: AP chest 05/18/2018, 11/28/2017 EXAM PARAMETERS: NUMBER OF VIEWS: One view. TECHNIQUE: Single frontal radiographic view of the chest acquired. RADIATION DOSE: NA LIMITATIONS: None. FINDINGS: LUNGS AND PLEURA: No acute infiltrates. No pleural effusion or pneumothorax. MEDIASTINUM AND HILAR STRUCTURES: No masses. Contour normal. HEART AND VASCULAR STRUCTURES: Old sternotomy and CABG. BONES: No acute findings. 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 No pneumothorax. 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 No pneumothorax. TECHNICAL DOCUMENTATION: JOB ID: [id number] [employer]- All Rights Reserved Reading location - IP/workstation name: [facility] / [facility]
--- NOTE | 2018-05-21 20:32 | PDOC PROGRESS REPORT ---
Subjective Progress Note for:: 05/21/18 Subjective:: Patient was transferred from medical floor to [facility] because of low blood pressure , elevated troponin, and also anemia., She is a DNR status that was ordered in the chart today Reason For Visit: TKA Physical Exam Vital Signs: Temp Pulse Resp BP Pulse Ox 97.3 F 95 16 90/53 L 99 05/21/18 20:08 05/21/18 20:08 05/21/18 18:15 05/21/18 20:08 05/21/18 20:04 Intake & Output 05/20/18 05/21/18 05/22/18 06:59 06:59 06:59 Intake Total 4220 1447 683 Output Total 1800 1525 200 Balance 2420 -78 483 Weight 102.3 kg 112.8 kg General appearance: PRESENT: no acute distress Eye exam: PRESENT: PERRLA Respiratory exam: PRESENT: clear to auscultation julio Cardiovascular exam: PRESENT: +S1, +S2 GI/Abdominal exam: PRESENT: soft Neurological exam: PRESENT: alert Results Laboratory Results: 05/21/18 07:16 05/20/18 05:15 05/19/18 05/21/18 05/21/18 09:00 07:16 07:16 WBC 8.6 RBC 2.48 L Hgb 7.8 L Hct 22.7 L MCV 92 MCH 31.5 MCHC 34.3 RDW 14.2 H Plt Count 163 Total Bilirubin 0.5 AST 61 H ALT 22 Alkaline Phosphatase 80 Total Protein 4.9 L Albumin 2.7 L Triglycerides 96 Cholesterol 135.35 LDL Cholesterol Direct 85 VLDL Cholesterol 19.0 HDL Cholesterol 44 Blood Type B POSITIVE Antibody Screen NEGATIVE 05/16/18 05/16/18 05/19/18 14:29 14:29 12:48 Creatine Kinase 122 CK-MB (CK-2) 2.23 Troponin I 0.013 < 0.012 05/20/18 05/21/18 05:15 07:16 Creatine Kinase CK-MB (CK-2) Troponin I < 0.012 5.730 Impressions: Knee X-Ray 05/16/18 12:51 IMPRESSION: Acute spiral fracture distal left femoral diaphysis extending just up to the edge of the femoral component of a total knee replacement Abdomen Ultrasound 05/17/18 00:00 IMPRESSION: Study is limited due to body habitus and overlying bowel gas. The liver was poorly visualized on this study. Consider CT scan if there is high concern for acute pathology. Status post cholecystectomy. Femur X-Ray 05/19/18 00:00 IMPRESSION: IMAGE(S) OBTAINED DURING PROCEDURE. Fluoroscopy 05/19/18 00:00 IMPRESSION: IMAGE(S) OBTAINED DURING PROCEDURE. 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 No pneumothorax. Assessment & Plan - Diagnosis (1) Hypotension Qualifiers: Hypotension type: unspecified hypotension type Qualified Code(s): I95.9 - Hypotension, unspecified Is this a current diagnosis for this admission?: Yes (2) Fracture of distal femur Qualifiers: Encounter type: initial encounter Fracture type: closed Fracture morphology: unspecified fracture morphology Laterality: left Qualified Code( s): S72.402A - Unspecified fracture of lower end of left femur, initial encounter for closed fracture Is this a current diagnosis for this admission?: Yes (3) Chronic obstructive airway disease Qualifiers: COPD type: chronic bronchitis Chronic bronchitis type: unspecified Qualified Code(s): J42 - Unspecified chronic bronchitis Is this a current diagnosis for this admission?: Yes (4) Diabetes mellitus type 2 in obese Is this a current diagnosis for this admission?: Yes (5) Anemia Qualifiers: Anemia type: other cause Other causes of anemia: acute posthemorrhagic Qualified Code(s): D62 - Acute posthemorrhagic anemia Is this a current diagnosis for this admission?: Yes Plan: Transfuse with red blood cells (6) Elevated troponin Is this a current diagnosis for this admission?: Yes Plan: management according to Dr. Gonzalez, cardiology
--- NOTE | 2018-05-21 20:40 | Progress Note ---
Provider Note Provider Note: CARDIOLOGY PROGRESS NOTE ON 05/21/18.
[2018-05-22] MEDS: CEFAZOLIN 2 GM/D5W RTU 2 GM/50 ML RTUPB IV SCH ×4 (00:53→17:02)
[2018-05-22] MEDS: OXYCODONE HCL IR 5 MG TABLET PO PRN ×3 (05:07→17:03)
[2018-05-22] MEDS: LANSOPRAZOLE 30 MG TAB.RAP.DR PO SCH (05:59)
[2018-05-22] MEDS: GABAPENTIN 300 MG CAPSULE PO SCH ×3 (05:59→22:18)
[2018-05-22 07:07] LABS: HEMATOCRIT 29.3 % (36.0-47.0); MEAN CORPUSCULAR HEMOGLOBIN 32.2 pg (27.0-33.4); MEAN CORPUSCULAR HGB CONC 35.2 g/dL (32.0-36.0); MEAN CORPUSCULAR VOLUME 92 fl (80-97); RED CELL DISTRIBUTION WIDTH 14.1 % (11.5-14.0); WHITE BLOOD COUNT 10.8 10^3/uL (4.0-10.5)
[2018-05-22 08:32] LABS: HEMOGLOBIN 10.3 g/dL (12.0-15.5)
[2018-05-22 08:33] LABS: PLATELET COUNT 183 10^3/uL (150-450)
[2018-05-22] MEDS: FLUTICASONE/UMECLIDIN/VILANTER 100-62.5-25 MCG/DOSE IH SCH (10:04)
[2018-05-22] MEDS: ASCORBIC ACID 500 MG TABLET PO SCH ×2 (10:04→17:04)
[2018-05-22] MEDS: LORATADINE 10 MG TABLET PO SCH (10:05)
[2018-05-22] MEDS: PRENATAL VITAMIN W DHA CAPSULE PO SCH (10:05)
[2018-05-22] MEDS: METOPROLOL TARTRATE 25 MG TABLET PO SCH ×2 (10:05→22:18)
[2018-05-22] MEDS: DOCUSATE SODIUM 100 MG CAPSULE PO SCH ×2 (10:05→17:03)
[2018-05-22] MEDS: DULOXETINE HCL 30 MG CAPSULE.DR PO SCH (10:05)
[2018-05-22] MEDS: NYSTATIN TOPICAL POWDER 15 GM TP SCH ×2 (10:05→17:03)
[2018-05-22] MEDS: MEMANTINE HCL 10 MG TABLET PO SCH ×2 (10:05→17:03)
[2018-05-22] MEDS: MULTIVITAMIN TABLET PO SCH (10:05)
[2018-05-22] MEDS: LISINOPRIL 5 MG TABLET PO SCH ×2 (10:05→22:18)
[2018-05-22] MEDS: PREDNISONE 5 MG TABLET PO SCH (10:05)
[2018-05-22] MEDS: SITAGLIPTIN PHOSPHATE 50 MG TABLET PO SCH (10:05)
[2018-05-22] MEDS: ENOXAPARIN SODIUM INJ 40 MG/0.4 ML DISP.SYRIN SUBCUT SCH (10:06)
--- NOTE | 2018-05-22 13:09 | EKG REPORT ---
SEVERITY:- ABNORMAL ECG - SINUS RHYTHM NONSPECIFIC INTRAVENTRICULAR CONDUCTION DELAY PROBABLE INFERIOR INFARCT, AGE INDETERMINATE NONSPECIFIC ST-T CHANGES ANTEROLATERAL LEADS. : Confirmed by: Boyd Bob MD 22-May-2018 13:08:01
[2018-05-22] MEDS: CYCLOBENZAPRINE HCL 10 MG TABLET PO PRN (13:24)
[2018-05-22] MEDS: ASPIRIN 81 MG TABLET, ENT COATED PO SCH (17:03)
[2018-05-22] MEDS: NITROGLYCERIN 2% OINTMENT 1 GM PACKET TP SCH (17:03)
[2018-05-22] MEDS: NORMAL SALINE 1000 ML 1,000 ML IV PRN (17:06)
--- NOTE | 2018-05-22 18:10 | PDOC PROGRESS REPORT ---
Subjective Progress Note for:: 05/22/18 Subjective:: The troponin increased from 5 to 13, she probably sustained non-ST HI, Dr. Gonzalez, cardiology following as well. She also has constipation Reason For Visit: TKA Physical Exam Vital Signs: Temp Pulse Resp BP Pulse Ox 99.3 F 82 18 131/74 H 100 05/22/18 15:33 05/22/18 15:33 05/22/18 15:33 05/22/18 15:33 05/22/18 15:33 Intake & Output 05/21/18 05/22/18 05/23/18 06:59 06:59 06:59 Intake Total 1447 1033 1268 Output Total 1525 400 Balance -78 633 1268 Weight 112.8 kg 124 kg General appearance: PRESENT: no acute distress Eye exam: PRESENT: PERRLA Respiratory exam: PRESENT: clear to auscultation julio Cardiovascular exam: PRESENT: +S1, +S2 GI/Abdominal exam: PRESENT: soft Neurological exam: PRESENT: alert Results Laboratory Results: 05/22/18 06:09 05/20/18 05:15 05/19/18 05/22/18 09:00 06:09 WBC 10.8 H RBC 3.20 L Hgb 10.3 L D Hct 29.3 L MCV 92 MCH 32.2 MCHC 35.2 RDW 14.1 H Plt Count 183 Blood Type B POSITIVE Antibody Screen NEGATIVE 05/16/18 05/16/18 05/19/18 14:29 14:29 12:48 Creatine Kinase 122 CK-MB (CK-2) 2.23 Troponin I 0.013 < 0.012 05/20/18 05/21/18 05/22/18 05:15 07:16 11:05 Creatine Kinase CK-MB (CK-2) Troponin I < 0.012 5.730 13.200 Impressions: Knee X-Ray 05/16/18 12:51 IMPRESSION: Acute spiral fracture distal left femoral diaphysis extending just up to the edge of the femoral component of a total knee replacement Abdomen Ultrasound 05/17/18 00:00 IMPRESSION: Study is limited due to body habitus and overlying bowel gas. The liver was poorly visualized on this study. Consider CT scan if there is high concern for acute pathology. Status post cholecystectomy. Femur X-Ray 05/19/18 00:00 IMPRESSION: IMAGE(S) OBTAINED DURING PROCEDURE. Fluoroscopy 05/19/18 00:00 IMPRESSION: IMAGE(S) OBTAINED DURING PROCEDURE. 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 No pneumothorax. Assessment & Plan - Diagnosis (1) Hypotension Qualifiers: Hypotension type: unspecified hypotension type Qualified Code(s): I95.9 - Hypotension, unspecified Is this a current diagnosis for this admission?: Yes (2) Fracture of distal femur Qualifiers: Encounter type: initial encounter Fracture type: closed Fracture morphology: unspecified fracture morphology Laterality: left Qualified Code( s): S72.402A - Unspecified fracture of lower end of left femur, initial encounter for closed fracture Is this a current diagnosis for this admission?: Yes (3) Chronic obstructive airway disease Qualifiers: COPD type: chronic bronchitis Chronic bronchitis type: unspecified Qualified Code(s): J42 - Unspecified chronic bronchitis Is this a current diagnosis for this admission?: Yes (4) Diabetes mellitus type 2 in obese Is this a current diagnosis for this admission?: Yes (5) Anemia Qualifiers: Anemia type: other cause Other causes of anemia: acute posthemorrhagic Qualified Code(s): D62 - Acute posthemorrhagic anemia Is this a current diagnosis for this admission?: Yes (6) Elevated troponin Is this a current diagnosis for this admission?: Yes (7) Non-ST elevated myocardial infarction Is this a current diagnosis for this admission?: Yes
--- NOTE | 2018-05-22 23:20 | Progress Note ---
Provider Note Provider Note: CARDIOLOGY PROGRESS NOTES by Dr. Dora Gonzalez on 05/22/2018.
[2018-05-23] MEDS: CEFAZOLIN 2 GM/D5W RTU 2 GM/50 ML RTUPB IV SCH ×3 (00:39→12:24)
[2018-05-23] MEDS: NITROGLYCERIN 2% OINTMENT 1 GM PACKET TP SCH ×5 (00:39→23:22)
[2018-05-23] MEDS: GABAPENTIN 300 MG CAPSULE PO SCH ×3 (05:01→22:26)
[2018-05-23] MEDS: LANSOPRAZOLE 30 MG TAB.RAP.DR PO SCH (05:01)
[2018-05-23 09:05] LABS: ABSOLUTE BASOPHILS # (AUTO) 0.1 10^3/uL (0.0-0.2); ABSOLUTE EOSINOPHILS # (AUTO) 0.5 10^3/uL (0.0-0.6); ABSOLUTE LYMPHOCYTES (AUTO) 1.5 10^3/uL (0.5-4.7); ABSOLUTE MONOCYTES (AUTO) 0.5 10^3/uL (0.1-1.4); ABSOLUTE NEUT (AUTO) 6.6 10^3/uL (1.7-8.2); BASOPHILS % (AUTO) 0.7 % (0-2); EOSINOPHILS % (AUTO) 5.5 % (0-6); HEMATOCRIT 30.3 % (36.0-47.0); HEMOGLOBIN 10.4 g/dL (12.0-15.5); LYMPHOCYTES % (AUTO) 16.4 % (13-45); MEAN CORPUSCULAR HEMOGLOBIN 31.8 pg (27.0-33.4); MEAN CORPUSCULAR HGB CONC 34.3 g/dL (32.0-36.0); MEAN CORPUSCULAR VOLUME 93 fl (80-97); MONOCYTES % (AUTO) 5.2 % (3-13); PLATELET COUNT 215 10^3/uL (150-450); RED BLOOD COUNT 3.28 10^6/uL (3.72-5.28); RED CELL DISTRIBUTION WIDTH 14.4 % (11.5-14.0); SEGMENTED NEUTROPHILS % (AUTO) 72.2 % (42-78); TOTAL CELLS COUNTED % (AUTO) 100 %; WHITE BLOOD COUNT 9.1 10^3/uL (4.0-10.5)
[2018-05-23 09:25] LABS: ALANINE AMINOTRANSFERASE 14 U/L (9-52); ALBUMIN 2.9 g/dL (3.5-5.0); ALKALINE PHOSPHATASE 78 U/L (38-126); ANION GAP 6 (5-19); ASPARTATE AMINO TRANSFERASE 77 U/L (14-36); BILIRUBIN,DIRECT 0.2 mg/dL (0.0-0.4); BILIRUBIN,TOTAL 0.6 mg/dL (0.2-1.3); BLOOD UREA NITROGEN 17 mg/dL (7-20); CALCIUM 8.6 mg/dL (8.4-10.2); CARBON DIOXIDE 34 mmol/L (22-30); CHLORIDE 103 mmol/L (98-107); GLUCOSE 134 mg/dL (75-110); POTASSIUM 3.8 mmol/L (3.6-5.0); SODIUM 143.3 mmol/L (137-145); TOTAL PROTEIN 5.3 g/dL (6.3-8.2)
[2018-05-23] MEDS: DULOXETINE HCL 30 MG CAPSULE.DR PO SCH (10:21)
[2018-05-23] MEDS: PRENATAL VITAMIN W DHA CAPSULE PO SCH (10:22)
[2018-05-23] MEDS: MULTIVITAMIN TABLET PO SCH (10:22)
[2018-05-23] MEDS: LISINOPRIL 5 MG TABLET PO SCH ×2 (10:22→22:26)
[2018-05-23] MEDS: MEMANTINE HCL 10 MG TABLET PO SCH ×2 (10:22→18:11)
[2018-05-23] MEDS: SITAGLIPTIN PHOSPHATE 50 MG TABLET PO SCH (10:22)
[2018-05-23] MEDS: LORATADINE 10 MG TABLET PO SCH (10:23)
[2018-05-23] MEDS: ASPIRIN 81 MG TABLET, ENT COATED PO SCH (10:23)
[2018-05-23] MEDS: METOPROLOL TARTRATE 25 MG TABLET PO SCH ×2 (10:23→22:26)
[2018-05-23] MEDS: ASCORBIC ACID 500 MG TABLET PO SCH ×2 (10:23→18:11)
[2018-05-23] MEDS: PREDNISONE 5 MG TABLET PO SCH (10:24)
[2018-05-23] MEDS: NYSTATIN TOPICAL POWDER 15 GM TP SCH (10:25)
[2018-05-23] MEDS: FLUTICASONE/UMECLIDIN/VILANTER 100-62.5-25 MCG/DOSE IH SCH (10:26)
[2018-05-23] MEDS: DOCUSATE SODIUM 100 MG CAPSULE PO SCH ×2 (10:30→18:11)
[2018-05-23] MEDS: ENOXAPARIN SODIUM INJ 40 MG/0.4 ML DISP.SYRIN SUBCUT SCH (10:31)
[2018-05-23] MEDS: INSULIN LISPRO 100 UNIT/ML 3 ML VIAL SUBCUT PRN (13:22)
[2018-05-23] MEDS: OXYCODONE HCL IR 5 MG TABLET PO PRN ×3 (15:29→23:22)
[2018-05-23] MEDS: CEFAZOLIN SODIUM 2 GM in DEXTROSE 5%-WATER 100 ML IV SCH ×2 (18:46→23:22)
[2018-05-23] MEDS ORDERED: BISACODYL 5 MG TABEC PO ONE (19:00)
--- NOTE | 2018-05-23 20:44 | Progress Note ---
Provider Note Provider Note: CARDIOLOGY PROGRESS NOTES by Dr. Dora Gonzalez on 05/23/2018. SUBJECTIVE:The patient still has some postop pain. She denies any chest pain or discomfort. There is no PND orthopnea. There is no palpitations. The patient denies any shortness of breath. There is no arrhythmias seen on the monitor. There is no pedal edema. There is no TIA or CVA symptoms. Her troponin is trending down. She definitely denies any anginal symptoms. PHYSICAL EXAMINATION: The patient is morbidly obese. In no acute distress except for pain in the right leg operative site. She is well-groomed. Selected Entries 05/23/18 11:13 Temperature 98.6 F Temperature Oral Source Pulse Rate 81 Respiratory 20 Rate Blood Pressure 112/67 Blood Pressure 82 Mean BP Location Right Wrist BP Position Supine O2 Sat by Pulse 96 Oximetry Oxygen Flow 3.00 Rate Oxygen Delivery Nasal Cannula Method HEAD: Head is atraumatic normocephalic. EYES: Pupils are equal round regular react to light and accommodation. Extraocular movements are normal. There is no clinical pallor. There is no scleral icterus. EARS: Tympanic membranes are intact. External auditory canals are clear. NOSE: There is no deviated nasal septum. There is no inflammation of the nasal mucous membrane. MOUTH: Mucous membranes of the mouth are moist. Tongue is moist. There is no ulcers. There is no bleeding from the gums. THROAT: There is no redness of the oropharynx, and no exudates. SKIN: There is no petechia or ecchymosis. There is no skin lesions or skin rashes. NECK: Is supple. There is no JVD. Carotids are equal there is no bruits. There is no lymphadenopathy. There is no goiter. There is no accessory muscles of respiration use. Trachea central. LUNGS: Show diminished air entry and prolonged expiration throughout. There is hyperresonance on percussion. There is no chest wall tenderness on palpation. There is no rhonchi, rales or wheezing. HEART: S1-S2 is heard there is no S3 gallop there is no S4 gallop there is systolic murmur left sternal border and apex there is no rub. ABDOMEN: Is obese. Nontender. There is no hepatosplenomegaly. Bowel sounds are well heard. There is no masses. EXTREMITIES: Femorals are deep femorals are diminished. There is no femoral bruits. Leg pulses are diminished. There is no pedal edema. There is foreshortening of the left lower extremity there is no DVT or cellulitis. There is no calf tenderness. There is no cyanosis or clubbing. CHARGE LOADER: The patient is conscious awake alert seems to be oriented x2. With no focal deficits. Psychiatric the patient does not appear to be agitated or anxious. In-depth psychiatric psychiatric exam not done. 05/23/18 05/23/18 05/23/18 08:52 08:52 12:35 WBC 9.1 Hgb 10.4 L Hct 30.3 L MCV 93 Plt Count 215 Sodium 143.3 Potassium 3.8 Chloride 103 Carbon Dioxide 34 H Anion Gap 6 BUN 17 Creatinine 0.67 Est GFR ( Amer) > 60 Est GFR (Non-Af Amer) > 60 Glucose 134 H Calcium 8.6 Total Bilirubin 0.6 Direct Bilirubin 0.2 Neonat Total Bilirubin Not Reportable Neonat Direct Bilirubin Not Reportable Neonat Indirect Bili Not Reportable AST 77 H ALT 14 Alkaline Phosphatase 78 Troponin I 5.640 Total Protein 5.3 L Albumin 2.9 L . The patient's 24-hour total intake has not been recorded. IMPRESSION/RECOMMENDATION: 1. NON-ST elevation ME: The patient is without anginal symptoms. Troponins trending down. She is tolerating the nitro paste that is added. Will switch to a long-acting topical nitrate tomorrow. Continue aspirin. Later we will discuss with the daughter and the patient about getting an IV Lexiscan Cardiolite stress test. We will recheck the patient's troponin I in the a.m., and also an EKG. 2. ANEMIA: At present hemoglobin stable at 10.3 after blood transfusions. 3.Coronary artery disease. History of coronary bypass graft surgery. At present no anginal symptoms. The patient's EKG shows no acute changes. The troponin is negative this was discussed with the patient. 4.Cardiomyopathy with moderately reduced LV ejection fraction,albeit patient without any symptoms. Would recommend continue patient's beta-katherine and lisinopril 2.5 mg p.o. every 12 hours and increase as tolerated. In view of the patient's cardia myopathy . 5. Hypertension: Blood pressure seems to be well-controlled. Continue current antihypertensives. 6. Diabetes mellitus with diabetic neuropathy. Continue antidiabetic medication. 7. History of bipolar disorder, and depression and mild dementia. Seems to be well-controlled. Continue psych medications. 8. Abnormal liver function tests:? Etiology. Review of the patient's medications do not show that the patient is on a statin.LFT's ARE TRENDING DOWN. 9.Status post accidental fall, and distal femoral fracture. Patient is status post surgical repair. Patient with still pain in the right leg operated site. Her medications have been reviewed. Management plan discussed with attending physician. Medical decision making is of high complexity. 40 minutes spent on this patient more than 50% of time spent in direct patient care. The patient continues to be DNR. Her daughter is his surrogate healthcare decision maker. Follow with you
--- NOTE | 2018-05-23 21:11 | PDOC PROGRESS REPORT ---
Subjective Progress Note for:: 05/23/18 Subjective:: Patient with constipation, she was given molasses enema with very good result Reason For Visit: TKA Physical Exam Vital Signs: Temp Pulse Resp BP Pulse Ox 99.1 F 47 L 24 H 121/66 100 05/23/18 20:39 05/23/18 20:39 05/23/18 20:39 05/23/18 20:39 05/23/18 20:39 Intake & Output 05/22/18 05/23/18 05/24/18 06:59 06:59 06:59 Intake Total 1033 2022 436 Output Total 400 Balance 633 2022 436 Weight 124 kg 120 kg General appearance: PRESENT: no acute distress Eye exam: PRESENT: PERRLA Respiratory exam: PRESENT: clear to auscultation julio Cardiovascular exam: PRESENT: +S1, +S2 GI/Abdominal exam: PRESENT: soft Neurological exam: PRESENT: alert Results Laboratory Results: 05/23/18 08:52 05/23/18 08:52 05/23/18 05/23/18 08:52 08:52 WBC 9.1 RBC 3.28 L Hgb 10.4 L Hct 30.3 L MCV 93 MCH 31.8 MCHC 34.3 RDW 14.4 H Plt Count 215 Seg Neutrophils % 72.2 Lymphocytes % 16.4 Monocytes % 5.2 Eosinophils % 5.5 Basophils % 0.7 Absolute Neutrophils 6.6 Absolute Lymphocytes 1.5 Absolute Monocytes 0.5 Absolute Eosinophils 0.5 Absolute Basophils 0.1 Sodium 143.3 Potassium 3.8 Chloride 103 Carbon Dioxide 34 H Anion Gap 6 BUN 17 Creatinine 0.67 Est GFR ( Amer) > 60 Est GFR (Non-Af Amer) > 60 Glucose 134 H Calcium 8.6 Total Bilirubin 0.6 AST 77 H ALT 14 Alkaline Phosphatase 78 Total Protein 5.3 L Albumin 2.9 L 05/21/18 01:30 Marti Catheter Urine Culture - Final Escherichia Coli 05/16/18 05/16/18 05/19/18 14:29 14:29 12:48 Creatine Kinase 122 CK-MB (CK-2) 2.23 Troponin I 0.013 < 0.012 05/20/18 05/21/18 05/22/18 05:15 07:16 11:05 Creatine Kinase CK-MB (CK-2) Troponin I < 0.012 5.730 13.200 05/23/18 12:35 Creatine Kinase CK-MB (CK-2) Troponin I 5.640 Impressions: Knee X-Ray 05/16/18 12:51 IMPRESSION: Acute spiral fracture distal left femoral diaphysis extending just up to the edge of the femoral component of a total knee replacement Abdomen Ultrasound 05/17/18 00:00 IMPRESSION: Study is limited due to body habitus and overlying bowel gas. The liver was poorly visualized on this study. Consider CT scan if there is high concern for acute pathology. Status post cholecystectomy. Femur X-Ray 05/19/18 00:00 IMPRESSION: IMAGE(S) OBTAINED DURING PROCEDURE. Fluoroscopy 05/19/18 00:00 IMPRESSION: IMAGE(S) OBTAINED DURING PROCEDURE. 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 No pneumothorax. Assessment & Plan - Diagnosis (1) Hypotension Qualifiers: Hypotension type: unspecified hypotension type Qualified Code(s): I95.9 - Hypotension, unspecified Is this a current diagnosis for this admission?: Yes (2) Fracture of distal femur Qualifiers: Encounter type: initial encounter Fracture type: closed Fracture morphology: unspecified fracture morphology Laterality: left Qualified Code( s): S72.402A - Unspecified fracture of lower end of left femur, initial encounter for closed fracture Is this a current diagnosis for this admission?: Yes (3) Chronic obstructive airway disease Qualifiers: COPD type: chronic bronchitis Chronic bronchitis type: unspecified Qualified Code(s): J42 - Unspecified chronic bronchitis Is this a current diagnosis for this admission?: Yes (4) Diabetes mellitus type 2 in obese Is this a current diagnosis for this admission?: Yes (5) Anemia Qualifiers: Anemia type: other cause Other causes of anemia: acute posthemorrhagic Qualified Code(s): D62 - Acute posthemorrhagic anemia Is this a current diagnosis for this admission?: Yes (6) Elevated troponin Is this a current diagnosis for this admission?: Yes (7) Non-ST elevated myocardial infarction Is this a current diagnosis for this admission?: Yes (8) Constipation Qualifiers: Constipation type: chronic idiopathic constipation Qualified Code(s): K59.04 - Chronic idiopathic constipation Is this a current diagnosis for this admission?: Yes
[2018-05-23] MEDS: NORMAL SALINE 1000 ML 1,000 ML IV PRN (22:32)
[2018-05-24] MEDS: LANSOPRAZOLE 30 MG TAB.RAP.DR PO SCH (05:33)
[2018-05-24] MEDS: CEFAZOLIN SODIUM 2 GM in DEXTROSE 5%-WATER 100 ML IV SCH ×2 (05:33→11:34)
[2018-05-24] MEDS: NITROGLYCERIN 2% OINTMENT 1 GM PACKET TP SCH ×3 (05:33→17:32)
[2018-05-24] MEDS: GABAPENTIN 300 MG CAPSULE PO SCH ×3 (05:34→21:10)
--- NOTE | 2018-05-24 07:55 | EKG REPORT ---
SEVERITY:- ABNORMAL ECG - SINUS RHYTHM NONSPECIFIC INTRAVENTRICULAR CONDUCTION DELAY PROBABLE LEFT VENTRICULAR HYPERTROPHY BORDERLINE INFERIOR Q WAVES : Confirmed by: Boyd Bob MD 24-May-2018 07:54:48
[2018-05-24] MEDS: OXYCODONE HCL IR 5 MG TABLET PO PRN ×3 (08:04→22:47)
[2018-05-24] MEDS: SITAGLIPTIN PHOSPHATE 50 MG TABLET PO SCH (11:24)
[2018-05-24] MEDS: LORATADINE 10 MG TABLET PO SCH (11:24)
[2018-05-24] MEDS: MEMANTINE HCL 10 MG TABLET PO SCH ×2 (11:25→17:31)
[2018-05-24] MEDS: ASPIRIN 81 MG TABLET, ENT COATED PO SCH (11:25)
[2018-05-24] MEDS: LISINOPRIL 5 MG TABLET PO SCH ×2 (11:26→21:10)
[2018-05-24] MEDS: METOPROLOL TARTRATE 25 MG TABLET PO SCH ×2 (11:26→21:10)
[2018-05-24] MEDS: MULTIVITAMIN TABLET PO SCH (11:29)
[2018-05-24] MEDS: DULOXETINE HCL 30 MG CAPSULE.DR PO SCH (11:29)
[2018-05-24] MEDS: DOCUSATE SODIUM 100 MG CAPSULE PO SCH ×2 (11:29→17:31)
[2018-05-24] MEDS: PRENATAL VITAMIN W DHA CAPSULE PO SCH (11:29)
[2018-05-24] MEDS: ENOXAPARIN SODIUM INJ 40 MG/0.4 ML DISP.SYRIN SUBCUT SCH (11:33)
[2018-05-24] MEDS: FLUTICASONE/UMECLIDIN/VILANTER 100-62.5-25 MCG/DOSE IH SCH (11:34)
[2018-05-24] MEDS: ASCORBIC ACID 500 MG TABLET PO SCH ×2 (11:36→17:34)
[2018-05-24] MEDS: PREDNISONE 5 MG TABLET PO SCH (11:36)
--- NOTE | 2018-05-24 12:58 | PDOC PROGRESS REPORT ---
Subjective Subjective:: Patient lying in bed comfortably. States her pain is currently controlled her major complaint is constipation. Denies chest pain or shortness of breath. Reason For Visit: TKA Physical Exam Vital Signs: Temp Pulse Resp BP Pulse Ox 98.1 F 83 16 141/71 H 97 05/24/18 07:49 05/24/18 07:49 05/24/18 07:49 05/24/18 07:49 05/24/18 07:49 Intake & Output 05/23/18 05/24/18 05/25/18 06:59 06:59 06:59 Intake Total 2022 1636 Balance 2022 163 Weight 120 kg 119.7 kg General appearance: PRESENT: no acute distress, well-developed, well-nourished Head exam: PRESENT: atraumatic, normocephalic Eye exam: PRESENT: conjunctiva pink, EOMI, PERRLA. ABSENT: scleral icterus Ear exam: PRESENT: normal external ear exam Mouth exam: PRESENT: moist, tongue midline Neck exam: PRESENT: full ROM. ABSENT: carotid bruit, JVD, lymphadenopathy, thyromegaly Cardiovascular exam: PRESENT: RRR. ABSENT: diastolic murmur, rubs, systolic murmur Pulses: PRESENT: normal dorsalis pedis pul, +2 pedal pulses bilateral Vascular exam: PRESENT: normal capillary refill GI/Abdominal exam: PRESENT: normal bowel sounds, soft. ABSENT: distended, guarding, mass, organolmegaly, rebound, tenderness Rectal exam: PRESENT: deferred Musculoskeletal exam: PRESENT: other - Left lower extremity: Dressing clean/dry/ intact no erythema or drainage. No calf tenderness. Intact plantar flexion/ dorsiflexion. Dorsalis pedis pulse 1+. Neurological exam: PRESENT: alert, awake, oriented to person, oriented to place , oriented to time, oriented to situation, CN II-XII grossly intact. ABSENT: motor sensory deficit Psychiatric exam: PRESENT: appropriate affect, normal mood. ABSENT: homicidal ideation, suicidal ideation Skin exam: PRESENT: dry, intact, warm. ABSENT: cyanosis, rash Results Laboratory Results: 05/23/18 08:52 05/23/18 08:52 05/21/18 01:30 Marti Catheter Urine Culture - Final Escherichia Coli 05/16/18 05/16/18 05/19/18 14:29 14:29 12:48 Creatine Kinase 122 CK-MB (CK-2) 2.23 Troponin I 0.013 < 0.012 05/20/18 05/21/18 05/22/18 05:15 07:16 11:05 Creatine Kinase CK-MB (CK-2) Troponin I < 0.012 5.730 13.200 05/23/18 05/24/18 12:35 05:45 Creatine Kinase CK-MB (CK-2) Troponin I 5.640 4.670 Impressions: Knee X-Ray 05/16/18 12:51 IMPRESSION: Acute spiral fracture distal left femoral diaphysis extending just up to the edge of the femoral component of a total knee replacement Abdomen Ultrasound 05/17/18 00:00 IMPRESSION: Study is limited due to body habitus and overlying bowel gas. The liver was poorly visualized on this study. Consider CT scan if there is high concern for acute pathology. Status post cholecystectomy. Femur X-Ray 05/19/18 00:00 IMPRESSION: IMAGE(S) OBTAINED DURING PROCEDURE. Fluoroscopy 05/19/18 00:00 IMPRESSION: IMAGE(S) OBTAINED DURING PROCEDURE. 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 No pneumothorax. Assessment & Plan - Diagnosis (1) Fracture of distal femur Qualifiers: Encounter type: initial encounter Fracture type: closed Fracture morphology: unspecified fracture morphology Laterality: left Qualified Code( s): S72.402A - Unspecified fracture of lower end of left femur, initial encounter for closed fracture Is this a current diagnosis for this admission?: Yes Plan: Postop day #1 status post left retrograde nail periprosthetic hip/femoral fracture 1. Physical therapy nonweightbearing left lower extremity knee immobilizer when out of bed 2. Acute blood loss anemia patient has received 2 units packed red blood cells which notably improved her H&H. 3. Xarelto for DVT prophylaxis 4. Discharge planning senior care facility/senior living when bed available
[2018-05-24] MEDS: INSULIN LISPRO 100 UNIT/ML 3 ML VIAL SUBCUT PRN (13:49)
[2018-05-24] MEDS: ACETAMINOPHEN 325 MG TABLET PO PRN (17:31)
[2018-05-24] MEDS ORDERED: CEFAZOLIN 2 GM/D5W RTU 2 GM/50 ML RTUPB IV SCH (18:00)
[2018-05-24] MEDS: CEFAZOLIN 2 GM/D5W RTU 2 GM/50 ML RTUPB IV SCH ×2 (18:38→23:01)
--- NOTE | 2018-05-24 23:00 | Progress Note ---
Provider Note Provider Note: CARDIOLOGY PROGRESS NOTES by Dr. Dora Gonzalez on 05/24/2018. SUBJECTIVE:The patient still has some postop pain. She denies any chest pain or discomfort. There is no PND orthopnea. There is no palpitations. The patient denies any shortness of breath. There is no arrhythmias seen on the monitor. There is no pedal edema. There is no TIA or CVA symptoms. Her troponin is trending down. She definitely denies any anginal symptoms. PHYSICAL EXAMINATION: The patient is morbidly obese. In no acute distress except for pain in the right leg operative site, is less than what it was yesterday. She is well-groomed. Selected Entries 05/24/18 05/24/18 03:34 07:49 Temperature 98.1 F Temperature Oral Source Pulse Rate 83 Respiratory 16 Rate Blood Pressure 141/71 H Blood Pressure 94 Mean BP Location Right Arm BP Position Sitting O2 Sat by Pulse 97 Oximetry Oxygen Flow 3.00 Rate Oxygen Delivery Nasal Cannula Nasal Cannula Method HEAD: Head is atraumatic normocephalic. EYES: Pupils are equal round regular react to light and accommodation. Extraocular movements are normal. There is no clinical pallor. There is no scleral icterus. EARS: Tympanic membranes are intact. External auditory canals are clear. NOSE: There is no deviated nasal septum. There is no inflammation of the nasal mucous membrane. MOUTH: Mucous membranes of the mouth are moist. Tongue is moist. There is no ulcers. There is no bleeding from the gums. THROAT: There is no redness of the oropharynx, and no exudates. SKIN: There is no petechia or ecchymosis. There is no skin lesions or skin rashes. NECK: Is supple. There is no JVD. Carotids are equal there is no bruits. There is no lymphadenopathy. There is no goiter. There is no accessory muscles of respiration use. Trachea central. LUNGS: Show diminished air entry and prolonged expiration throughout. There is hyperresonance on percussion. There is no chest wall tenderness on palpation. There is no rhonchi, rales or wheezing. HEART: S1-S2 is heard there is no S3 gallop there is no S4 gallop there is systolic murmur left sternal border and apex there is no rub. ABDOMEN: Is obese. Nontender. There is no hepatosplenomegaly. Bowel sounds are well heard. There is no masses. EXTREMITIES: Femorals are deep femorals are diminished. There is no femoral bruits. Leg pulses are diminished. There is no pedal edema. There is foreshortening of the left lower extremity there is no DVT or cellulitis. There is no calf tenderness. There is no cyanosis or clubbing. PROOF PASSER: The patient is conscious awake alert seems to be oriented x2. With no focal deficits. Psychiatric the patient does not appear to be agitated or anxious. In-depth psychiatric psychiatric exam not done. 05/23/18 05/24/18 05/24/18 21:25 05:45 06:05 POC Glucose 175 H 140 H Troponin I 4.670 05/24/18 05/24/18 05/24/18 12:42 16:09 22:31 POC Glucose 190 H 130 H 140 H Troponin I IMPRESSION/RECOMMENDATION: 1. NON-ST elevation CT: The patient is without anginal symptoms. Troponins trending down. She is tolerating the nitro paste that is added. Will switch to a long-acting topical nitrate tomorrow. Continue aspirin. Later we will discuss with the daughter and the patient about getting an IV Lexiscan Cardiolite stress test. We will recheck the patient's troponin I in the a.m., and also an EKG. we will restart the patient's aspirin. 2. ANEMIA: At present hemoglobin stable after blood transfusions. 3.Coronary artery disease. History of coronary bypass graft surgery. At present no anginal symptoms. The patient's EKG shows no acute changes. The troponin is negative this was discussed with the patient. 4.Cardiomyopathy with moderately reduced LV ejection fraction,albeit patient without any symptoms. Would recommend continue patient's beta-katherine and lisinopril 2.5 mg p.o. every 12 hours and increase as tolerated. In view of the patient's cardia myopathy . 5. Hypertension: Blood pressure seems to be well-controlled. Continue current antihypertensives. 6. Diabetes mellitus with diabetic neuropathy. Continue antidiabetic medication. 7. History of bipolar disorder, and depression and mild dementia. Seems to be well-controlled. Continue psych medications. 8. Abnormal liver function tests:? Etiology. Review of the patient's medications do not show that the patient is on a statin.LFT's ARE TRENDING DOWN. 9.Status post accidental fall, and distal femoral fracture. Patient is status post surgical repair. Patient with less pain in the right leg operated site. MEDICATIONS REVIEWED: Plan of care discussed with attending physician Dr. Holland. Medical decision making is of high complexity. 40 minutes spent on this patient, with more than 50% of time spent in direct patient care. The patient remains DNR, with a daughter remaining decided get healthcare power of attorney general. We will follow with you.
[2018-05-25] MEDS: NITROGLYCERIN 2% OINTMENT 1 GM PACKET TP SCH ×4 (00:08→17:51)
[2018-05-25] MEDS: NORMAL SALINE 1000 ML 1,000 ML IV PRN (03:17)
[2018-05-25] MEDS: LANSOPRAZOLE 30 MG TAB.RAP.DR PO SCH (05:32)
[2018-05-25] MEDS: CEFAZOLIN 2 GM/D5W RTU 2 GM/50 ML RTUPB IV SCH ×3 (05:32→18:55)
[2018-05-25] MEDS: GABAPENTIN 300 MG CAPSULE PO SCH ×3 (05:32→22:16)
[2018-05-25] MEDS: OXYCODONE HCL IR 5 MG TABLET PO PRN ×4 (07:36→22:16)
[2018-05-25] MEDS: ACETAMINOPHEN 325 MG TABLET PO PRN (07:37)
[2018-05-25] MEDS: MULTIVITAMIN TABLET PO SCH (11:22)
[2018-05-25] MEDS: FLUTICASONE/UMECLIDIN/VILANTER 100-62.5-25 MCG/DOSE IH SCH (11:22)
[2018-05-25] MEDS: SITAGLIPTIN PHOSPHATE 50 MG TABLET PO SCH (11:23)
[2018-05-25] MEDS: ASCORBIC ACID 500 MG TABLET PO SCH ×2 (11:24→19:00)
[2018-05-25] MEDS: LORATADINE 10 MG TABLET PO SCH (11:24)
[2018-05-25] MEDS: PRENATAL VITAMIN W DHA CAPSULE PO SCH (11:25)
[2018-05-25] MEDS: DOCUSATE SODIUM 100 MG CAPSULE PO SCH ×2 (11:25→18:55)
[2018-05-25] MEDS: ASPIRIN 81 MG TABLET, ENT COATED PO SCH (11:26)
[2018-05-25] MEDS: DULOXETINE HCL 30 MG CAPSULE.DR PO SCH (11:26)
[2018-05-25] MEDS: MEMANTINE HCL 10 MG TABLET PO SCH ×2 (11:26→18:56)
[2018-05-25] MEDS: ENOXAPARIN SODIUM INJ 40 MG/0.4 ML DISP.SYRIN SUBCUT SCH (11:27)
[2018-05-25] MEDS: ALBUTEROL SULFATE HFA (90 MCG/PUFF) 200 PUFF/8.5 GM MDI IH PRN (11:28)
[2018-05-25] MEDS: METOPROLOL TARTRATE 25 MG TABLET PO SCH ×2 (11:31→22:15)
[2018-05-25] MEDS: LISINOPRIL 5 MG TABLET PO SCH ×2 (11:31→22:15)
[2018-05-25] MEDS: PREDNISONE 5 MG TABLET PO SCH (11:44)
--- NOTE | 2018-05-25 18:23 | PDOC PROGRESS REPORT ---
Subjective Progress Note for:: 05/25/18 Subjective:: Patient seen by the bedside Reason For Visit: TKA Physical Exam Vital Signs: Temp Pulse Resp BP Pulse Ox 98.8 F 95 16 106/63 100 05/25/18 15:26 05/25/18 15:26 05/25/18 15:26 05/25/18 15:26 05/25/18 15:26 Intake & Output 05/24/18 05/25/18 05/26/18 06:59 06:59 06:59 Intake Total 1636 1752 Balance 1636 1752 Weight 119.7 kg 118.8 kg General appearance: PRESENT: no acute distress Eye exam: PRESENT: PERRLA Respiratory exam: PRESENT: clear to auscultation julio Cardiovascular exam: PRESENT: +S1, +S2 GI/Abdominal exam: PRESENT: soft Neurological exam: PRESENT: alert Results Laboratory Results: 05/23/18 08:52 05/23/18 08:52 05/16/18 05/16/18 05/19/18 14:29 14:29 12:48 Creatine Kinase 122 CK-MB (CK-2) 2.23 Troponin I 0.013 < 0.012 05/20/18 05/21/18 05/22/18 05:15 07:16 11:05 Creatine Kinase CK-MB (CK-2) Troponin I < 0.012 5.730 13.200 05/23/18 05/24/18 12:35 05:45 Creatine Kinase CK-MB (CK-2) Troponin I 5.640 4.670 Impressions: Knee X-Ray 05/16/18 12:51 IMPRESSION: Acute spiral fracture distal left femoral diaphysis extending just up to the edge of the femoral component of a total knee replacement Abdomen Ultrasound 05/17/18 00:00 IMPRESSION: Study is limited due to body habitus and overlying bowel gas. The liver was poorly visualized on this study. Consider CT scan if there is high concern for acute pathology. Status post cholecystectomy. Femur X-Ray 05/19/18 00:00 IMPRESSION: IMAGE(S) OBTAINED DURING PROCEDURE. Fluoroscopy 05/19/18 00:00 IMPRESSION: IMAGE(S) OBTAINED DURING PROCEDURE. 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 No pneumothorax. Assessment & Plan - Diagnosis (1) Hypotension Qualifiers: Hypotension type: unspecified hypotension type Qualified Code(s): I95.9 - Hypotension, unspecified Is this a current diagnosis for this admission?: Yes (2) Fracture of distal femur Qualifiers: Encounter type: initial encounter Fracture type: closed Fracture morphology: unspecified fracture morphology Laterality: left Qualified Code( s): S72.402A - Unspecified fracture of lower end of left femur, initial encounter for closed fracture Is this a current diagnosis for this admission?: Yes (3) Chronic obstructive airway disease Qualifiers: COPD type: chronic bronchitis Chronic bronchitis type: unspecified Qualified Code(s): J42 - Unspecified chronic bronchitis Is this a current diagnosis for this admission?: Yes (4) Diabetes mellitus type 2 in obese Is this a current diagnosis for this admission?: Yes (5) Anemia Qualifiers: Anemia type: other cause Other causes of anemia: acute posthemorrhagic Qualified Code(s): D62 - Acute posthemorrhagic anemia Is this a current diagnosis for this admission?: Yes (6) Elevated troponin Is this a current diagnosis for this admission?: Yes (7) Non-ST elevated myocardial infarction Is this a current diagnosis for this admission?: Yes (8) Constipation Qualifiers: Constipation type: chronic idiopathic constipation Qualified Code(s): K59.04 - Chronic idiopathic constipation Is this a current diagnosis for this admission?: Yes
[2018-05-25 19:50] LABS: ABSOLUTE BASOPHILS # (AUTO) 0.1 10^3/uL (0.0-0.2); ABSOLUTE EOSINOPHILS # (AUTO) 0.4 10^3/uL (0.0-0.6); ABSOLUTE LYMPHOCYTES (AUTO) 1.4 10^3/uL (0.5-4.7); ABSOLUTE MONOCYTES (AUTO) 0.5 10^3/uL (0.1-1.4); ABSOLUTE NEUT (AUTO) 5.5 10^3/uL (1.7-8.2); BASOPHILS % (AUTO) 0.9 % (0-2); EOSINOPHILS % (AUTO) 5.5 % (0-6); HEMATOCRIT 29.6 % (36.0-47.0); HEMOGLOBIN 10.3 g/dL (12.0-15.5); LYMPHOCYTES % (AUTO) 17.4 % (13-45); MEAN CORPUSCULAR HEMOGLOBIN 32.1 pg (27.0-33.4); MEAN CORPUSCULAR HGB CONC 34.9 g/dL (32.0-36.0); MEAN CORPUSCULAR VOLUME 92 fl (80-97); MONOCYTES % (AUTO) 6.3 % (3-13); PLATELET COUNT 281 10^3/uL (150-450); RED BLOOD COUNT 3.22 10^6/uL (3.72-5.28); RED CELL DISTRIBUTION WIDTH 14.4 % (11.5-14.0); SEGMENTED NEUTROPHILS % (AUTO) 69.9 % (42-78); TOTAL CELLS COUNTED % (AUTO) 100 %; WHITE BLOOD COUNT 7.9 10^3/uL (4.0-10.5)
[2018-05-25 20:13] LABS: ALANINE AMINOTRANSFERASE 13 U/L (9-52); ALBUMIN 2.9 g/dL (3.5-5.0); ALKALINE PHOSPHATASE 83 U/L (38-126); ANION GAP 5 (5-19); ASPARTATE AMINO TRANSFERASE 34 U/L (14-36); BILIRUBIN,DIRECT 0.2 mg/dL (0.0-0.4); BILIRUBIN,TOTAL 0.5 mg/dL (0.2-1.3); BLOOD UREA NITROGEN 19 mg/dL (7-20); CALCIUM 8.5 mg/dL (8.4-10.2); CARBON DIOXIDE 32 mmol/L (22-30); CHLORIDE 102 mmol/L (98-107); GLUCOSE 185 mg/dL (75-110); SODIUM 138.7 mmol/L (137-145); TOTAL PROTEIN 5.1 g/dL (6.3-8.2)
--- NOTE | 2018-05-25 23:44 | Progress Note ---
Provider Note Provider Note: Cardiology PROGRESS NOTE by Dr. John has been on 05/25/2018. SUBJECTIVE: The patient continues to have left upper extremity postherpetic neuralgic pain. She denies any chest pain or discomfort. There is no shortness of breath there is no PND orthopnea. There is no leg edema there is no palpitations. There is no arrhythmias seen on the monitor. There is no TIA or CVA symptoms. PHYSICAL EXAMINATION: The patient is morbidly obese. At present in no acute distress. She is well-groomed. Selected Entries 05/25/18 11:27 Temperature 97.7 F Temperature Oral Source Pulse Rate 89 Respiratory 20 Rate Blood Pressure 106/74 Blood Pressure 84 Mean BP Location Right Arm BP Position Sitting O2 Sat by Pulse 91 L Oximetry Oxygen Flow 3.00 Rate Oxygen Delivery Nasal Cannula Method HEAD: Head is atraumatic normocephalic. EYES: Pupils are equal round regular react to light and accommodation. Extraocular movements are normal. There is no clinical pallor. There is no scleral icterus. EARS: Tympanic membranes are intact. External auditory canals are clear. NOSE: There is no deviated nasal septum. There is no inflammation of the nasal mucous membrane. MOUTH: Mucous membranes of the mouth are moist. Tongue is moist. There is no ulcers. There is no bleeding from the gums. THROAT: There is no redness of the oropharynx, and no exudates. SKIN: There is no petechia or ecchymosis. There is no skin lesions or skin rashes. NECK: Is supple. There is no JVD. Carotids are equal there is no bruits. There is no lymphadenopathy. There is no goiter. There is no accessory muscles of respiration use. Trachea central. LUNGS: Show diminished air entry and prolonged expiration throughout. There is hyperresonance on percussion. There is no chest wall tenderness on palpation. There is no rhonchi, rales or wheezing. HEART: S1-S2 is heard there is no S3 gallop there is no S4 gallop there is systolic murmur left sternal border and apex there is no rub. ABDOMEN: Is obese. Nontender. There is no hepatosplenomegaly. Bowel sounds are well heard. There is no masses. EXTREMITIES: Femorals are deep femorals are diminished. There is no femoral bruits. Leg pulses are diminished. There is no pedal edema. There is foreshortening of the left lower extremity there is no DVT or cellulitis. There is no calf tenderness. There is no cyanosis or clubbing. BUSINESS SUPPORT MANAGER: The patient is conscious awake alert seems to be oriented x2. With no focal deficits. Psychiatric the patient does not appear to be agitated or anxious. In-depth psychiatric psychiatric exam not done. 05/25/18 05/25/18 19:30 19:30 WBC 7.9 Hgb 10.3 L Hct 29.6 L Plt Count 281 Sodium 138.7 Potassium 4.0 Chloride 102 Carbon Dioxide 32 H BUN 19 Creatinine 0.69 Est GFR (Non-Af Amer) > 60 Glucose 185 H Calcium 8.5 Total Bilirubin 0.5 Direct Bilirubin 0.2 Neonat Total Bilirubin Not Reportable Neonat Direct Bilirubin Not Reportable Neonat Indirect Bili Not Reportable AST 34 ALT 13 Alkaline Phosphatase 83 Total Protein 5.1 L Albumin 2.9 L IMPRESSION/RECOMMENDATION: 1. NON-ST elevation [place]: The patient is without anginal symptoms. Troponins trending down. She is tolerating the nitro paste that is added. Will switch to a long-acting topical nitrate tomorrow. Continue aspirin. Later we will discuss with the daughter and the patient about getting an IV Lexiscan Cardiolite stress test. We will recheck the patient's troponin I in the a.m., and also an EKG. we will restart the patient's aspirin. 2. ANEMIA: At present hemoglobin stable after blood transfusions. 3.Coronary artery disease. History of coronary bypass graft surgery. At present no anginal symptoms. The patient's EKG shows no acute changes. The troponin is negative this was discussed with the patient. 4.Cardiomyopathy with moderately reduced LV ejection fraction,albeit patient without any symptoms. Would recommend continue patient's beta-katherine and lisinopril 2.5 mg p.o. every 12 hours and increase as tolerated. In view of the patient's cardia myopathy . 5. Hypertension: Blood pressure seems to be well-controlled. Continue current antihypertensives. 6. Diabetes mellitus with diabetic neuropathy. Continue antidiabetic medication. 7. History of bipolar disorder, and depression and mild dementia. Seems to be well-controlled. Continue psych medications. 8. Abnormal liver function tests:? Etiology. Review of the patient's medications do not show that the patient is on a statin.LFT's ARE TRENDING DOWN. 9.Status post accidental fall, and distal femoral fracture. Patient is status post surgical repair. Patient with less pain in the right leg operated site. Medications reviewed. Discussed management plan with attending physician. 40 minutes spent on this patient more than 50% of time spent in direct patient care. Medical decision making is of moderate complexity.
[2018-05-26] MEDS: NITROGLYCERIN 2% OINTMENT 1 GM PACKET TP SCH ×4 (00:13→18:12)
[2018-05-26] MEDS: CEFAZOLIN 2 GM/D5W RTU 2 GM/50 ML RTUPB IV SCH ×4 (00:18→18:15)
[2018-05-26] MEDS: OXYCODONE HCL IR 5 MG TABLET PO PRN ×5 (03:30→21:37)
[2018-05-26] MEDS: LANSOPRAZOLE 30 MG TAB.RAP.DR PO SCH (05:32)
[2018-05-26] MEDS: GABAPENTIN 300 MG CAPSULE PO SCH ×3 (05:32→21:37)
[2018-05-26] MEDS: NORMAL SALINE 1000 ML 1,000 ML IV PRN (05:34)
--- NOTE | 2018-05-26 09:23 | PDOC PROGRESS REPORT ---
Subjective Progress Note for:: 05/26/18 Subjective:: Patient complaining of left thigh pain. No issues overnight. Reason For Visit: TKA Physical Exam Vital Signs: Temp Pulse Resp BP Pulse Ox 36.5 C 93 22 H 121/64 95 05/26/18 04:00 05/26/18 07:00 05/26/18 04:00 05/26/18 04:00 05/26/18 04:00 Intake & Output 05/25/18 05/26/18 05/27/18 06:59 06:59 06:59 Intake Total 1752 2942 Balance 1752 2942 Weight 118.8 kg 118.6 kg Adult Front & Back Image: 1 - Dressings show minimal serous drainage. Elise and incision are dry clean and intact. Discomfort with attempted range of motion. Soft cast with negative Jazmyn and neurovascular exam is intact distally. Results Laboratory Results: 05/25/18 19:30 05/25/18 19:30 05/25/18 05/25/18 19:30 19:30 WBC 7.9 RBC 3.22 L Hgb 10.3 L Hct 29.6 L MCV 92 MCH 32.1 MCHC 34.9 RDW 14.4 H Plt Count 281 Seg Neutrophils % 69.9 Lymphocytes % 17.4 Monocytes % 6.3 Eosinophils % 5.5 Basophils % 0.9 Absolute Neutrophils 5.5 Absolute Lymphocytes 1.4 Absolute Monocytes 0.5 Absolute Eosinophils 0.4 Absolute Basophils 0.1 Sodium 138.7 Potassium 4.0 Chloride 102 Carbon Dioxide 32 H Anion Gap 5 BUN 19 Creatinine 0.69 Est GFR ( Amer) > 60 Est GFR (Non-Af Amer) > 60 Glucose 185 H Calcium 8.5 Total Bilirubin 0.5 AST 34 ALT 13 Alkaline Phosphatase 83 Total Protein 5.1 L Albumin 2.9 L 05/16/18 05/16/18 05/19/18 14:29 14:29 12:48 Creatine Kinase 122 CK-MB (CK-2) 2.23 Troponin I 0.013 < 0.012 05/20/18 05/21/18 05/22/18 05:15 07:16 11:05 Creatine Kinase CK-MB (CK-2) Troponin I < 0.012 5.730 13.200 05/23/18 05/24/18 12:35 05:45 Creatine Kinase CK-MB (CK-2) Troponin I 5.640 4.670 Impressions: Knee X-Ray 05/16/18 12:51 IMPRESSION: Acute spiral fracture distal left femoral diaphysis extending just up to the edge of the femoral component of a total knee replacement Abdomen Ultrasound 05/17/18 00:00 IMPRESSION: Study is limited due to body habitus and overlying bowel gas. The liver was poorly visualized on this study. Consider CT scan if there is high concern for acute pathology. Status post cholecystectomy. Femur X-Ray 05/19/18 00:00 IMPRESSION: IMAGE(S) OBTAINED DURING PROCEDURE. Fluoroscopy 05/19/18 00:00 IMPRESSION: IMAGE(S) OBTAINED DURING PROCEDURE. 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 No pneumothorax. Assessment & Plan - Plan Summary Plan Summary: 88-year-old female status post retrograde nailing left periprosthetic femur fracture. No signs of infection. Continue nonweightbearing. Continue pain control and likely awaiting discharge to nursing facility.
[2018-05-26] MEDS: DULOXETINE HCL 30 MG CAPSULE.DR PO SCH (11:20)
[2018-05-26] MEDS: ASCORBIC ACID 500 MG TABLET PO SCH ×2 (11:21→18:17)
[2018-05-26] MEDS: MEMANTINE HCL 10 MG TABLET PO SCH ×2 (11:21→18:12)
[2018-05-26] MEDS: METOPROLOL TARTRATE 25 MG TABLET PO SCH ×2 (11:22→21:17)
[2018-05-26] MEDS: MULTIVITAMIN TABLET PO SCH (11:22)
[2018-05-26] MEDS: LORATADINE 10 MG TABLET PO SCH (11:22)
[2018-05-26] MEDS: DOCUSATE SODIUM 100 MG CAPSULE PO SCH ×2 (11:22→18:12)
[2018-05-26] MEDS: PRENATAL VITAMIN W DHA CAPSULE PO SCH (11:22)
[2018-05-26] MEDS: ASPIRIN 81 MG TABLET, ENT COATED PO SCH (11:23)
[2018-05-26] MEDS: LISINOPRIL 5 MG TABLET PO SCH ×2 (11:23→21:17)
[2018-05-26] MEDS: CYCLOBENZAPRINE HCL 10 MG TABLET PO PRN (11:25)
[2018-05-26] MEDS: ALBUTEROL SULFATE HFA (90 MCG/PUFF) 200 PUFF/8.5 GM MDI IH PRN (11:27)
[2018-05-26] MEDS: ENOXAPARIN SODIUM INJ 40 MG/0.4 ML DISP.SYRIN SUBCUT SCH (11:29)
[2018-05-26] MEDS: SITAGLIPTIN PHOSPHATE 50 MG TABLET PO SCH (11:35)
[2018-05-26] MEDS: FLUTICASONE/UMECLIDIN/VILANTER 100-62.5-25 MCG/DOSE IH SCH (11:35)
[2018-05-26] MEDS: PREDNISONE 5 MG TABLET PO SCH (11:36)
--- NOTE | 2018-05-26 19:00 | PDOC PROGRESS REPORT ---
Subjective Progress Note for:: 05/26/18 Subjective:: Patient seen by the bedside, the troponin is on the decline Reason For Visit: TKA Physical Exam Vital Signs: Temp Pulse Resp BP Pulse Ox 98.1 F 79 20 114/65 100 05/26/18 15:50 05/26/18 15:50 05/26/18 15:50 05/26/18 15:50 05/26/18 15:50 Intake & Output 05/25/18 05/26/18 05/27/18 06:59 06:59 06:59 Intake Total 1752 2942 1201 Balance 1752 2942 1201 Weight 118.8 kg 118.6 kg General appearance: PRESENT: no acute distress Head exam: PRESENT: atraumatic, normocephalic Eye exam: PRESENT: PERRLA Neck exam: PRESENT: full ROM Respiratory exam: PRESENT: clear to auscultation julio Cardiovascular exam: PRESENT: RRR, +S1, +S2 Vascular exam: PRESENT: normal capillary refill GI/Abdominal exam: PRESENT: normal bowel sounds, soft Rectal exam: PRESENT: deferred Neurological exam: PRESENT: alert, CN II-XII grossly intact Psychiatric exam: PRESENT: appropriate affect Skin exam: PRESENT: dry, intact, warm Results Laboratory Results: 05/25/18 19:30 05/25/18 19:30 05/25/18 05/25/18 19:30 19:30 WBC 7.9 RBC 3.22 L Hgb 10.3 L Hct 29.6 L MCV 92 MCH 32.1 MCHC 34.9 RDW 14.4 H Plt Count 281 Seg Neutrophils % 69.9 Lymphocytes % 17.4 Monocytes % 6.3 Eosinophils % 5.5 Basophils % 0.9 Absolute Neutrophils 5.5 Absolute Lymphocytes 1.4 Absolute Monocytes 0.5 Absolute Eosinophils 0.4 Absolute Basophils 0.1 Sodium 138.7 Potassium 4.0 Chloride 102 Carbon Dioxide 32 H Anion Gap 5 BUN 19 Creatinine 0.69 Est GFR ( Amer) > 60 Est GFR (Non-Af Amer) > 60 Glucose 185 H Calcium 8.5 Total Bilirubin 0.5 AST 34 ALT 13 Alkaline Phosphatase 83 Total Protein 5.1 L Albumin 2.9 L 05/16/18 05/16/18 05/19/18 14:29 14:29 12:48 Creatine Kinase 122 CK-MB (CK-2) 2.23 Troponin I 0.013 < 0.012 05/20/18 05/21/18 05/22/18 05:15 07:16 11:05 Creatine Kinase CK-MB (CK-2) Troponin I < 0.012 5.730 13.200 05/23/18 05/24/18 05/26/18 12:35 05:45 16:15 Creatine Kinase CK-MB (CK-2) Troponin I 5.640 4.670 0.929 Impressions: Knee X-Ray 05/16/18 12:51 IMPRESSION: Acute spiral fracture distal left femoral diaphysis extending just up to the edge of the femoral component of a total knee replacement Abdomen Ultrasound 05/17/18 00:00 IMPRESSION: Study is limited due to body habitus and overlying bowel gas. The liver was poorly visualized on this study. Consider CT scan if there is high concern for acute pathology. Status post cholecystectomy. Femur X-Ray 05/19/18 00:00 IMPRESSION: IMAGE(S) OBTAINED DURING PROCEDURE. Fluoroscopy 05/19/18 00:00 IMPRESSION: IMAGE(S) OBTAINED DURING PROCEDURE. 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 No pneumothorax. Assessment & Plan - Diagnosis (1) Hypotension Qualifiers: Hypotension type: unspecified hypotension type Qualified Code(s): I95.9 - Hypotension, unspecified Is this a current diagnosis for this admission?: Yes (2) Fracture of distal femur Qualifiers: Encounter type: initial encounter Fracture type: closed Fracture morphology: unspecified fracture morphology Laterality: left Qualified Code( s): S72.402A - Unspecified fracture of lower end of left femur, initial encounter for closed fracture Is this a current diagnosis for this admission?: Yes (3) Chronic obstructive airway disease Qualifiers: COPD type: chronic bronchitis Chronic bronchitis type: unspecified Qualified Code(s): J42 - Unspecified chronic bronchitis Is this a current diagnosis for this admission?: Yes (4) Diabetes mellitus type 2 in obese Is this a current diagnosis for this admission?: Yes (5) Anemia Qualifiers: Anemia type: other cause Other causes of anemia: acute posthemorrhagic Qualified Code(s): D62 - Acute posthemorrhagic anemia Is this a current diagnosis for this admission?: Yes (6) Elevated troponin Is this a current diagnosis for this admission?: Yes (7) Non-ST elevated myocardial infarction Is this a current diagnosis for this admission?: Yes (8) Constipation Qualifiers: Constipation type: chronic idiopathic constipation Qualified Code(s): K59.04 - Chronic idiopathic constipation Is this a current diagnosis for this admission?: Yes
--- NOTE | 2018-05-26 22:41 | Progress Note ---
Provider Note Provider Note: CARDIOLOGY PROGRESS NOTES by Dr. Dora Gonzalez on 05/26. SUBJECTIVE:The patient still has some postop pain and also pain in the left upper extremity secondary to postherpetic neuralgia. She denies any chest pain or discomfort. There is no PND orthopnea. There is no palpitations. The patient denies any shortness of breath. There is no arrhythmias seen on the monitor. There is no pedal edema. There is no TIA or CVA symptoms. Her troponin is trending down. She definitely denies any anginal symptoms. PHYSICAL EXAMINATION: The patient is morbidly obese. In no acute distress except for pain in the right leg operative site, is less than what it was yesterday. She is well-groome 05/26/18 11:22 Temperature 98.6 F Temperature Oral Source Pulse Rate 99 Respiratory 20 Rate Blood Pressure 121/98 H Blood Pressure 105 Mean BP Location Right Arm BP Position Sitting O2 Sat by Pulse 94 Oximetry Oxygen Flow 3.00 Rate Oxygen Delivery Nasal Cannula Method HEAD: Head is atraumatic normocephalic. EYES: Pupils are equal round regular react to light and accommodation. Extraocular movements are normal. There is no clinical pallor. There is no scleral icterus. EARS: Tympanic membranes are intact. External auditory canals are clear. NOSE: There is no deviated nasal septum. There is no inflammation of the nasal mucous membrane. MOUTH: Mucous membranes of the mouth are moist. Tongue is moist. There is no ulcers. There is no bleeding from the gums. THROAT: There is no redness of the oropharynx, and no exudates. SKIN: There is no petechia or ecchymosis. There is no skin lesions or skin rashes. NECK: Is supple. There is no JVD. Carotids are equal there is no bruits. There is no lymphadenopathy. There is no goiter. There is no accessory muscles of respiration use. Trachea central. LUNGS: Show diminished air entry and prolonged expiration throughout. There is hyperresonance on percussion. There is no chest wall tenderness on palpation. There is no rhonchi, rales or wheezing. HEART: S1-S2 is heard there is no S3 gallop there is no S4 gallop there is systolic murmur left sternal border and apex there is no rub. ABDOMEN: Is obese. Nontender. There is no hepatosplenomegaly. Bowel sounds are well heard. There is no masses. EXTREMITIES: Femorals are deep femorals are diminished. There is no femoral bruits. Leg pulses are diminished. There is no pedal edema. There is foreshortening of the left lower extremity there is no DVT or cellulitis. There is no calf tenderness. There is no cyanosis or clubbing. 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 With no focal deficits. Psychiatric the patient does not appear to be agitated or anxious. In-depth psychiatric psychiatric exam not done. 05/26/18 05/26/18 15:49 16:15 POC Glucose 142 H Troponin I 0.929 IMPRESSION/RECOMMENDATION: 1. NON-ST elevation [place]: The patient is without anginal symptoms. Troponins trending down. She is tolerating the nitro paste that is added. Will switch to a long-acting topical nitrate tomorrow. Continue aspirin. Later we will discuss with the daughter and the patient about getting an IV Lexiscan Cardiolite stress test. We will recheck the patient's troponin I in the a.m., and also an EKG. we will restart the patient's aspirin. No discussed with the patient's daughter. The patient is a patient Dr. both preferred medical treatment. We will maximize medical treatment. If the patient develops anginal symptoms then would recommend more aggressive approach. 2. ANEMIA: At present hemoglobin stable after blood transfusions. 3.Coronary artery disease. History of coronary bypass graft surgery. At present no anginal symptoms. The patient's EKG shows no acute changes. The troponin is negative this was discussed with the patient. 4.Cardiomyopathy with moderately reduced LV ejection fraction,albeit patient without any symptoms. Would recommend continue patient's beta-katherine and lisinopril 2.5 mg p.o. every 12 hours and increase as tolerated. In view of the patient's cardia myopathy . 5. Hypertension: Blood pressure seems to be well-controlled. Continue current antihypertensives. 6. Diabetes mellitus with diabetic neuropathy. Continue antidiabetic medication. 7. History of bipolar disorder, and depression and mild dementia. Seems to be well-controlled. Continue psych medications. 8. Abnormal liver function tests:? Etiology. Review of the patient's medications do not show that the patient is on a statin.LFT's ARE TRENDING DOWN. 9.Status post accidental fall, and distal femoral fracture. Patient is status post surgical repair. Patient with less pain in the right leg operated site. Patient's medications reviewed. Discussed management plan with attending physician. Also discussed the management plans with the patient and the patient 's daughter. Medical decision making is moderate to high complexity. 40 minutes spent on this patient more than 50% of time spent in direct patient care. We will follow with you.
[2018-05-27] MEDS: NORMAL SALINE 1000 ML 1,000 ML IV PRN (00:57)
[2018-05-27] MEDS: NITROGLYCERIN 2% OINTMENT 1 GM PACKET TP SCH ×2 (01:03→06:30)
[2018-05-27] MEDS: OXYCODONE HCL IR 5 MG TABLET PO PRN ×4 (01:36→22:15)
[2018-05-27] MEDS: CEFAZOLIN 2 GM/D5W RTU 2 GM/50 ML RTUPB IV SCH ×5 (01:36→23:37)
[2018-05-27] MEDS: GABAPENTIN 300 MG CAPSULE PO SCH ×3 (06:30→22:16)
[2018-05-27] MEDS: LANSOPRAZOLE 30 MG TAB.RAP.DR PO SCH (06:30)
[2018-05-27] MEDS: SITAGLIPTIN PHOSPHATE 50 MG TABLET PO SCH (10:43)
[2018-05-27] MEDS: PRENATAL VITAMIN W DHA CAPSULE PO SCH (10:43)
[2018-05-27] MEDS: ASCORBIC ACID 500 MG TABLET PO SCH ×2 (10:43→17:06)
[2018-05-27] MEDS: LISINOPRIL 5 MG TABLET PO SCH ×2 (10:43→22:16)
[2018-05-27] MEDS: MULTIVITAMIN TABLET PO SCH (10:43)
[2018-05-27] MEDS: PREDNISONE 5 MG TABLET PO SCH (10:44)
[2018-05-27] MEDS: ASPIRIN 81 MG TABLET, ENT COATED PO SCH (10:44)
[2018-05-27] MEDS: DOCUSATE SODIUM 100 MG CAPSULE PO SCH ×2 (10:44→17:06)
[2018-05-27] MEDS: FLUTICASONE/UMECLIDIN/VILANTER 100-62.5-25 MCG/DOSE IH SCH (10:44)
[2018-05-27] MEDS: METOPROLOL TARTRATE 25 MG TABLET PO SCH ×2 (10:44→22:16)
[2018-05-27] MEDS: DULOXETINE HCL 30 MG CAPSULE.DR PO SCH (10:44)
[2018-05-27] MEDS: LORATADINE 10 MG TABLET PO SCH (10:44)
[2018-05-27] MEDS: ENOXAPARIN SODIUM INJ 40 MG/0.4 ML DISP.SYRIN SUBCUT SCH (10:44)
[2018-05-27] MEDS: MEMANTINE HCL 10 MG TABLET PO SCH ×2 (10:44→17:06)
[2018-05-27] MEDS: NITROGLYCERIN 15 MG (0.6 MG/1 HR) PATCH.TD24 TD SCH (13:28)
[2018-05-27] MEDS: INSULIN LISPRO 100 UNIT/ML 3 ML VIAL SUBCUT PRN ×2 (13:29→17:06)
--- NOTE | 2018-05-27 21:00 | Progress Note ---
Provider Note Provider Note: CARDIOLOGY PROGRESS NOTES by Dr. Dora Gonzalez on 05/27/2018. SUBJECTIVE the patient denies any chest pain or discomfort. She still has neuropathic pain in the left upper extremity secondary to postherpetic neuralgia. There is no PND or orthopnea. There is no leg edema. The patient denies any palpitations. There is no arrhythmias seen on the monitor. There is no TIA CVA symptoms. PHYSICAL EXAMINATION: The patient is morbidly obese. She is in no acute distress today. She is well-groomed. Selected Entries 05/27/18 08:00 Temperature 99.2 F Temperature Oral Source Pulse Rate 92 Respiratory 20 Rate Blood Pressure 130/65 H [Right Upper Arm] Blood Pressure 86 Mean [Right Upper Arm] Blood Pressure Supine Position [Right Upper Arm] O2 Sat by Pulse 96 Oximetry Oxygen Delivery Nasal Cannula Method ( includes room air) Oxygen Flow 3 Rate HEAD: Head is atraumatic normocephalic. EYES: Pupils are equal round regular react to light and accommodation. Extraocular movements are normal. There is no clinical pallor. There is no scleral icterus. EARS: Tympanic membranes are intact. External auditory canals are clear. NOSE: There is no deviated nasal septum. There is no inflammation of the nasal mucous membrane. MOUTH: Mucous membranes of the mouth are moist. Tongue is moist. There is no ulcers. There is no bleeding from the gums. THROAT: There is no redness of the oropharynx, and no exudates. SKIN: There is no petechia or ecchymosis. There is no skin lesions or skin rashes. NECK: Is supple. There is no JVD. Carotids are equal there is no bruits. There is no lymphadenopathy. There is no goiter. There is no accessory muscles of respiration use. Trachea central. LUNGS: Show diminished air entry and prolonged expiration throughout. There is hyperresonance on percussion. There is no chest wall tenderness on palpation. There is no rhonchi, rales or wheezing. HEART: S1-S2 is heard there is no S3 gallop there is no S4 gallop there is systolic murmur left sternal border and apex there is no rub. ABDOMEN: Is obese. Nontender. There is no hepatosplenomegaly. Bowel sounds are well heard. There is no masses. EXTREMITIES: Femorals are deep femorals are diminished. There is no femoral bruits. Leg pulses are diminished. There is no pedal edema. There is foreshortening of the left lower extremity there is no DVT or cellulitis. There is no calf tenderness. There is no cyanosis or clubbing. 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 With no focal deficits. Psychiatric the patient does not appear to be agitated or anxious. In-depth psychiatric psychiatric exam not done. 05/27/18 05/27/18 12:49 16:25 POC Glucose 193 H 185 H IMPRESSION/RECOMMENDATION: 1. NON-ST elevation [place]: The patient is without anginal symptoms. Troponins trending down. She is tolerating the nitro paste that is added. Will switch to a long-acting topical nitrate tomorrow. Continue aspirin. Later we will discuss with the daughter and the patient about getting an IV Lexiscan Cardiolite stress test. We will recheck the patient's troponin I in the a.m., and also an EKG. we will restart the patient's aspirin. No discussed with the patient's daughter. The patient is a patient Dr. both preferred medical treatment. We will maximize medical treatment. If the patient develops anginal symptoms then would recommend more aggressive approach. 2. ANEMIA: At present hemoglobin stable after blood transfusions. 3.Coronary artery disease. History of coronary bypass graft surgery. At present no anginal symptoms. The patient's EKG shows no acute changes. The troponin is negative this was discussed with the patient. 4.Cardiomyopathy with moderately reduced LV ejection fraction,albeit patient without any symptoms. Would recommend continue patient's beta-katherine and lisinopril 2.5 mg p.o. every 12 hours and increase as tolerated. In view of the patient's cardia myopathy . 5. Hypertension: Blood pressure seems to be well-controlled. Continue current antihypertensives. 6. Diabetes mellitus with diabetic neuropathy. Continue antidiabetic medication. 7. History of bipolar disorder, and depression and mild dementia. Seems to be well-controlled. Continue psych medications. 8. Abnormal liver function tests:? Etiology. Review of the patient's medications do not show that the patient is on a statin.LFT's ARE TRENDING DOWN. 9.Status post accidental fall, and distal femoral fracture. Patient is status post surgical repair. At present postop pain well controlled. The patient has left upper extremity pain secondary to postherpetic neuralgia. Medications have been reviewed. Management plan discussed with attending physician. Medical decision making is of moderate complexity. 40 minutes spent on this patient with more than 50% of time spent in direct patient care. We will sign off, and follow the patient is an outpatient.
[2018-05-28] MEDS: ACETAMINOPHEN 325 MG TABLET PO PRN (03:16)
[2018-05-28] MEDS: OXYCODONE HCL IR 5 MG TABLET PO PRN ×4 (03:16→23:49)
[2018-05-28] MEDS: CEFAZOLIN 2 GM/D5W RTU 2 GM/50 ML RTUPB IV SCH ×4 (06:01→23:50)
[2018-05-28] MEDS: GABAPENTIN 300 MG CAPSULE PO SCH ×3 (06:02→22:07)
[2018-05-28] MEDS: LANSOPRAZOLE 30 MG TAB.RAP.DR PO SCH (06:02)
[2018-05-28] MEDS: NORMAL SALINE 1000 ML 1,000 ML IV PRN (06:08)
[2018-05-28] MEDS: DULOXETINE HCL 30 MG CAPSULE.DR PO SCH (11:08)
[2018-05-28] MEDS: SITAGLIPTIN PHOSPHATE 50 MG TABLET PO SCH (11:08)
[2018-05-28] MEDS: LORATADINE 10 MG TABLET PO SCH (11:08)
[2018-05-28] MEDS: LISINOPRIL 5 MG TABLET PO SCH ×2 (11:08→22:08)
[2018-05-28] MEDS: ENOXAPARIN SODIUM INJ 40 MG/0.4 ML DISP.SYRIN SUBCUT SCH (11:09)
[2018-05-28] MEDS: DOCUSATE SODIUM 100 MG CAPSULE PO SCH ×2 (11:09→17:37)
[2018-05-28] MEDS: ASPIRIN 81 MG TABLET, ENT COATED PO SCH (11:09)
[2018-05-28] MEDS: MEMANTINE HCL 10 MG TABLET PO SCH ×2 (11:09→17:48)
[2018-05-28] MEDS: PRENATAL VITAMIN W DHA CAPSULE PO SCH (11:09)
[2018-05-28] MEDS: MULTIVITAMIN TABLET PO SCH (11:09)
[2018-05-28] MEDS: METOPROLOL TARTRATE 25 MG TABLET PO SCH ×2 (11:10→22:07)
[2018-05-28] MEDS: NITROGLYCERIN 15 MG (0.6 MG/1 HR) PATCH.TD24 TD SCH (11:13)
[2018-05-28] MEDS: PREDNISONE 5 MG TABLET PO SCH (11:13)
[2018-05-28] MEDS: ASCORBIC ACID 500 MG TABLET PO SCH ×2 (11:17→17:48)
[2018-05-28] MEDS: FLUTICASONE/UMECLIDIN/VILANTER 100-62.5-25 MCG/DOSE IH SCH (11:21)
[2018-05-28] MEDS: INSULIN LISPRO 100 UNIT/ML 3 ML VIAL SUBCUT PRN ×2 (12:58→16:29)
--- NOTE | 2018-05-28 18:59 | PDOC PROGRESS REPORT ---
Subjective Progress Note for:: 05/28/18 Subjective:: Patient lying in bed comfortably. Patient states her pain is significantly improved. Has been doing better in physical therapy. Did have a bowel movement today which was a relief. Reason For Visit: TKA Physical Exam Vital Signs: Temp Pulse Resp BP Pulse Ox 97.8 F 75 18 108/60 99 05/28/18 15:47 05/28/18 15:47 05/28/18 15:47 05/28/18 15:47 05/28/18 15:47 Intake & Output 05/27/18 05/28/18 05/29/18 06:59 06:59 06:59 Intake Total 6 2652 804 Balance 2075 2652 804 Weight 118.2 kg 119.7 kg Musculoskeletal exam: PRESENT: other - Left lower extremity: Small spotting of serosanguineous drainage along the proximal aspect of the wound no erythema. Intact knee range of motion pain with attempted terminal flexion. Intact straight leg raise. No calf tenderness. Intact plantar flexion/dorsiflexion. Results Laboratory Results: 05/25/18 19:30 05/25/18 19:30 05/16/18 05/16/18 05/19/18 14:29 14:29 12:48 Creatine Kinase 122 CK-MB (CK-2) 2.23 Troponin I 0.013 < 0.012 05/20/18 05/21/18 05/22/18 05:15 07:16 11:05 Creatine Kinase CK-MB (CK-2) Troponin I < 0.012 5.730 13.200 05/23/18 05/24/18 05/26/18 12:35 05:45 16:15 Creatine Kinase CK-MB (CK-2) Troponin I 5.640 4.670 0.929 Impressions: Knee X-Ray 05/16/18 12:51 IMPRESSION: Acute spiral fracture distal left femoral diaphysis extending just up to the edge of the femoral component of a total knee replacement Abdomen Ultrasound 05/17/18 00:00 IMPRESSION: Study is limited due to body habitus and overlying bowel gas. The liver was poorly visualized on this study. Consider CT scan if there is high concern for acute pathology. Status post cholecystectomy. Femur X-Ray 05/19/18 00:00 IMPRESSION: IMAGE(S) OBTAINED DURING PROCEDURE. Fluoroscopy 05/19/18 00:00 IMPRESSION: IMAGE(S) OBTAINED DURING PROCEDURE. 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 No pneumothorax. Assessment & Plan - Diagnosis (1) Fracture of distal femur Qualifiers: Encounter type: initial encounter Fracture type: closed Fracture morphology: unspecified fracture morphology Laterality: left Qualified Code( s): S72.402A - Unspecified fracture of lower end of left femur, initial encounter for closed fracture Is this a current diagnosis for this admission?: Yes Plan: Postop day #1 status post left retrograde nail periprosthetic hip/femoral fracture 1. Physical therapy nonweightbearing left lower extremity knee immobilizer when out of bed, patient is doing much better 2. Acute blood loss anemia patient has received 2 units packed red blood cells H&H has remained stable 3. Xarelto for DVT prophylaxis 4. Discharge planning long term facility/group home when bed available
--- NOTE | 2018-05-28 20:29 | PDOC TRANSFER SUMMARY ---
General - Admit/Disc Date/PCP Admission Date/Primary Care Provider: 05/16/18 13:55 DENICE MORRIS MD Discharge Date: 05/28/18 - Discharge Diagnosis (1) Hypotension Is this a current diagnosis for this admission?: Yes (2) Fracture of distal femur Is this a current diagnosis for this admission?: Yes (3) Chronic obstructive airway disease Is this a current diagnosis for this admission?: Yes (4) Diabetes mellitus type 2 in obese Is this a current diagnosis for this admission?: Yes (5) Anemia Is this a current diagnosis for this admission?: Yes (6) Elevated troponin Is this a current diagnosis for this admission?: Yes (7) Non-ST elevated myocardial infarction Is this a current diagnosis for this admission?: Yes (8) Constipation Is this a current diagnosis for this admission?: Yes - Additional Information Resuscitation Status: Do Not Resuscitate Prescriptions: Losartan/Hydrochlorothiazide [Losartan-Hctz 100-25 mg Tab] 1 each PO DAILY #1 tablet Home Medications: Albuterol Sulfate [Proair HFA Inhalation Aerosol 8.5 gm MDI] 2 puff IH Q4HP PRN 05/16/18 Ascorbic Acid [Vitamin C 500 mg Tablet] 500 mg PO BID 05/16/18 Duloxetine HCl [Cymbalta] 60 mg PO DAILY 05/16/18 Fluticasone/Umeclidin/Vilanter [Trelegy 100-62.5-25 Mcg Ellipta 14 Dose/Dpi] 1 puff IH DAILY 05/16/18 Gabapentin [Neurontin 300 mg Capsule] 300 mg PO Q8 05/16/18 Ipratropium/Albuterol Sulfate [Duoneb 3 ml Ampul] 3 ml NEB RTQ6HP PRN 05/16/18 Linagliptin [Tradjenta] 5 mg PO DAILY 05/16/18 Loratadine [Claritin 10 mg Tablet] 10 mg PO DAILY 05/16/18 Memantine HCl [Namenda 10 mg Tablet] 10 mg PO BID 05/16/18 Metoprolol Tartrate [Lopressor 25 mg Tablet] 25 mg PO DAILY 05/16/18 Multivitamin [Daily Multiple Vitamin] 1 each PO DAILY 05/16/18 Nystatin [Mycostatin Topical Powder 15 gm] 1 applic TP BID 05/16/18 Oxycodone HCl/Acetaminophen [Percocet 10-325 mg Tablet] 1 each PO Q4 05/16/18 Prednisone [Deltasone 5 mg Tablet] 5 mg PO DAILY 05/16/18 Aspirin [Ecotrin 81 mg EC Tablet] 81 mg PO DAILY tabec 05/28/18 Losartan/Hydrochlorothiazide [Losartan-Hctz 100-25 mg Tab] 1 each PO DAILY #1 tablet 05/28/18 History of Present Illness Admission Date/PCP: 05/16/18 13:55 DENICE MORRIS MD History of Present Illness: SINAN MONTGOMERY is a 88 year old female.She was admitted on when she fell and sustained a fracture of the left distal femur Hospital Course Hospital Course: Patient was admitted for the management of fracture of left periprostatic distal femur. She was seen in consultation by orthopedic she underwent ORIF on 05/19/2018 when she had intramedullary nailing done.The hospital course was complicated with anemia, elevated troponin felt to be due to acute non-ST elevated [place]. She supposedly had a low blood pressure on the medical floor where she was initially on admission, she was then transferred to intermediate care unit because there was associated elevated serum troponin. When she arrived in intermediate care unit the blood pressure recorded was normal we could not reproduce the low blood pressure that was recorded on the medical floor. She was seen by Dr. Gonzalez ,because of advanced age and multiple comorbid condition it was felt that the myocardial infarction should be managed conservatively since there is no intent to do further intervention, she is status post CABG and also status post stent placement ,she is a DNR status Physical Exam Vital Signs: Temp Pulse Resp BP Pulse Ox 97.8 F 75 18 108/60 99 05/28/18 15:47 05/28/18 15:47 05/28/18 15:47 05/28/18 15:47 05/28/18 15:47 Intake & Output 05/27/18 05/28/18 05/29/18 06:59 06:59 06:59 Intake Total 1 2652 804 Balance 2075 2652 804 Weight 118.2 kg 119.7 kg General appearance: PRESENT: no acute distress Eye exam: PRESENT: PERRLA Respiratory exam: PRESENT: clear to auscultation julio Cardiovascular exam: PRESENT: +S1, +S2 GI/Abdominal exam: PRESENT: soft Neurological exam: PRESENT: alert, CN II-XII grossly intact Results Laboratory Results: 05/25/18 19:30 05/25/18 19:30 05/16/18 05/16/18 05/19/18 14:29 14:29 12:48 Creatine Kinase 122 CK-MB (CK-2) 2.23 Troponin I 0.013 < 0.012 05/20/18 05/21/18 05/22/18 05:15 07:16 11:05 Creatine Kinase CK-MB (CK-2) Troponin I < 0.012 5.730 13.200 05/23/18 05/24/18 05/26/18 12:35 05:45 16:15 Creatine Kinase CK-MB (CK-2) Troponin I 5.640 4.670 0.929 Impressions: Knee X-Ray 05/16/18 12:51 IMPRESSION: Acute spiral fracture distal left femoral diaphysis extending just up to the edge of the femoral component of a total knee replacement Abdomen Ultrasound 05/17/18 00:00 IMPRESSION: Study is limited due to body habitus and overlying bowel gas. The liver was poorly visualized on this study. Consider CT scan if there is high concern for acute pathology. Status post cholecystectomy. Femur X-Ray 05/19/18 00:00 IMPRESSION: IMAGE(S) OBTAINED DURING PROCEDURE. Fluoroscopy 05/19/18 00:00 IMPRESSION: IMAGE(S) OBTAINED DURING PROCEDURE. 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 No pneumothorax. Qualifiers - * PATIENT BEING DISCHARGED WITH ANY OF THE FOLLOWING DIAGNOSIS: IN VTE patient discharged on overlapping Therapy?: Yes Reason(s) for not prescribing Statins therapy:: Tx not tolerated IN Pt being discharged on Aspirin therapy?: Yes IN Pt being discharged on Statins?: No Reason(s) for not prescribing Statin therapy:: Tx not tolerated IN Pt discharged ACEI/ARBS?: Yes
[2018-05-28] MEDS: CYCLOBENZAPRINE HCL 10 MG TABLET PO PRN (22:07)
[2018-05-29] MEDS: CEFAZOLIN 2 GM/D5W RTU 2 GM/50 ML RTUPB IV SCH ×4 (06:22→23:33)
[2018-05-29] MEDS: LANSOPRAZOLE 30 MG TAB.RAP.DR PO SCH (06:25)
[2018-05-29] MEDS: GABAPENTIN 300 MG CAPSULE PO SCH ×3 (06:25→21:05)
[2018-05-29] MEDS: OXYCODONE HCL IR 5 MG TABLET PO PRN ×4 (06:25→21:05)
[2018-05-29] MEDS: LORATADINE 10 MG TABLET PO SCH (10:03)
[2018-05-29] MEDS: DULOXETINE HCL 30 MG CAPSULE.DR PO SCH (10:03)
[2018-05-29] MEDS: CYCLOBENZAPRINE HCL 10 MG TABLET PO PRN ×2 (10:04→22:50)
[2018-05-29] MEDS: LISINOPRIL 5 MG TABLET PO SCH ×2 (10:05→21:03)
[2018-05-29] MEDS: ASCORBIC ACID 500 MG TABLET PO SCH ×2 (10:06→18:03)
[2018-05-29] MEDS: MULTIVITAMIN TABLET PO SCH (10:06)
[2018-05-29] MEDS: SITAGLIPTIN PHOSPHATE 50 MG TABLET PO SCH (10:07)
[2018-05-29] MEDS: METOPROLOL TARTRATE 25 MG TABLET PO SCH ×2 (10:07→21:03)
[2018-05-29] MEDS: MEMANTINE HCL 10 MG TABLET PO SCH ×2 (10:09→18:03)
[2018-05-29] MEDS: ASPIRIN 81 MG TABLET, ENT COATED PO SCH (10:09)
[2018-05-29] MEDS: PREDNISONE 5 MG TABLET PO SCH (10:09)
[2018-05-29] MEDS: PRENATAL VITAMIN W DHA CAPSULE PO SCH (10:09)
[2018-05-29] MEDS: DOCUSATE SODIUM 100 MG CAPSULE PO SCH ×2 (10:10→18:03)
[2018-05-29] MEDS: NITROGLYCERIN 15 MG (0.6 MG/1 HR) PATCH.TD24 TD SCH (10:10)
[2018-05-29] MEDS: ENOXAPARIN SODIUM INJ 40 MG/0.4 ML DISP.SYRIN SUBCUT SCH (10:10)
[2018-05-29] MEDS: FLUTICASONE/UMECLIDIN/VILANTER 100-62.5-25 MCG/DOSE IH SCH (10:12)
[2018-05-29] MEDS: ACETAMINOPHEN 325 MG TABLET PO PRN ×2 (12:35→22:50)
[2018-05-29] MEDS: NORMAL SALINE 1000 ML 1,000 ML IV PRN (18:06)
[2018-05-29] MEDS: INSULIN LISPRO 100 UNIT/ML 3 ML VIAL SUBCUT PRN (22:50)
[2018-05-30 00:21] VITALS: BP 131/68
== END 2018-05-30 00:20 | DRG 480 ==
LOC: ER 12:35 → EH 13:55 → UNDOADMIN 13:55 → 4S 15:42 → EH 15:42 → 3S 05-21 10:41
PROVIDERS: ADMIT Internal Medicine; ATTEND Internal Medicine
PROC: 0QHC06Z Insertion of Intramedullary Internal Fixation Device into Left Lower Femur, Open Approach (ICD-10-PCS; principal; 2018-05-19 08:00)
PROC: 30233N1 Transfusion of Nonautologous Red Blood Cells into Peripheral Vein, Percutaneous Approach (ICD-10-PCS; 2018-05-21)
PROC: 02HV33Z Insertion of Infusion Device into Superior Vena Cava, Percutaneous Approach (ICD-10-PCS; 2018-05-21)
DX: S72.402A Unspecified fracture of lower end of left femur, initial encounter for closed fracture (principal); I21.4 Non-ST elevation (NSTEMI) myocardial infarction; M97.02XA Periprosthetic fracture around internal prosthetic left hip joint, initial encounter; J44.1 Chronic obstructive pulmonary disease with (acute) exacerbation; F11.20 Opioid dependence, uncomplicated; D62 Acute posthemorrhagic anemia; I42.9 Cardiomyopathy, unspecified; F31.89 Other bipolar disorder; Z68.41 Body mass index [BMI] 40.0-44.9, adult; Z66 Do not resuscitate; B96.20 Unspecified Escherichia coli [E. coli] as the cause of diseases classified elsewhere; I95.9 Hypotension, unspecified; I50.9 Heart failure, unspecified; I11.0 Hypertensive heart disease with heart failure; E11.8 Type 2 diabetes mellitus with unspecified complications; I25.10 Atherosclerotic heart disease of native coronary artery without angina pectoris; E78.5 Hyperlipidemia, unspecified; K21.9 Gastro-esophageal reflux disease without esophagitis; C50.911 Malignant neoplasm of unspecified site of right female breast; E03.9 Hypothyroidism, unspecified; E66.01 Morbid (severe) obesity due to excess calories; M19.90 Unspecified osteoarthritis, unspecified site; K59.00 Constipation, unspecified; I25.2 Old myocardial infarction; W10.8XXA Fall (on) (from) other stairs and steps, initial encounter; Y93.89 Activity, other specified; Y92.018 Other place in single-family (private) house as the place of occurrence of the external cause; Z96.641 Presence of right artificial hip joint; Z96.653 Presence of artificial knee joint, bilateral; Z90.11 Acquired absence of right breast and nipple; Z79.51 Long term (current) use of inhaled steroids; Z79.52 Long term (current) use of systemic steroids; Z79.899 Other long term (current) drug therapy
CPT/HCPCS: 01230; 36415; 36430; 71045; 76700; 80048; 80053; 80061; 80076; 81001; 82550; 82553; 82962; 84484; 85025; 85027; 85610; 85730; 86850; 86900; 86901; 86920; 87086; 87088; 87186; 93005; 93010; 93306; 99285; C1713; C1769; C8923; G8978-GP; G8979-GP; G8987-GO; G8988-GO; G8989-GO; J0131; J0171; J0330; J0690; J1100; J1642; J1650; J1815; J1885; J2250; J2270; J2405; J2704; J3010; J3370; J3490; J7030; J7050; J7512; L1830; P9016

== ENCOUNTER 2018-07-10 14:21 | Inpatient (IN) | payer MEDICARE, MEDICAID ==
[2018-07-10 14:42] LABS: VENOUS BLOOD BASE EXCESS 7.3 mmol/L; VENOUS BLOOD HCO3 35.9 mmol/L (20-32); VENOUS BLOOD PH 7.35 (7.30-7.42)
--- NOTE | 2018-07-10 14:43 | ER Document Report ---
ED Respiratory Problem - General Mode of Arrival: Medic Information source: Patient TRAVEL OUTSIDE OF THE [place] IN LAST 30 DAYS: No <ANJELICA LEE - Last Filed: 07/10/18 14:48> <SAMSON CARCAMO - Last Filed: 07/10/18 18:51> - General Chief Complaint: Respiratory Distress Stated Complaint: SHORT OF BREATH/ALTERED MENTAL STATUS Time Seen by Provider: 07/10/18 14:36 Notes: 88-year-old female who presents to the emergency department today with complaints of altered mental status. Patient currently resides at [facility] and while at lunch today was found to be diaphoretic. Of note, the patient was wearing her oxygen during this episode however the oxygen hose was kinked so the patient was not receiving any of her oxygen. The patient was saturating at 87% during this time but cassandra to 92% on 4L via nasal cannula. History is limited. (ANJELICA LEE) The patient is a DNR status. This was confirmed by the daughter. (SAMSON CARCAMO) - Related Data Allergies/Adverse Reactions: codeine [Codeine] Allergy (Severe, Verified 09/26/17 19:17) headache bacitracin [From Neosporin ([id number])] Allergy (Verified 09/26/17 19:17) gabapentin Allergy (Verified 09/26/17 19:17) neomycin [From Neosporin ([id number]-[id number]-[id number])] Allergy (Verified 09/26/17 19:17) polymyxin B [From Neosporin ([id number]-[id number])] Allergy (Verified 09/26/17 19:17) pregabalin [From Lyrica] Allergy (Verified 09/26/17 19:17) Hallucinations Sulfa (Sulfonamide Antibiotics) Allergy (Verified 09/26/17 19:17) itching Past Medical History - General Information source: Emergency Med Personnel, [facility] Records - Social History Smoking Status: Former Smoker Cigarette use (# per day): No Frequency of alcohol use: None Drug Abuse: None Lives with: Family Family History: Reviewed & Not Pertinent, CAD, CVA, DM, Hyperlipidemia, H ypertension - Past Medical History Cardiac Medical History: Reports: Hx Congestive Heart Failure, Hx Coronary Artery Disease, Hx Heart Attack, Hx Hypercholesterolemia, Hx Hypertension Pulmonary Medical History: Reports: Hx Asthma, Hx Bronchitis, Hx COPD, Hx Pneumonia, Hx Sleep Apnea Neurological Medical History: Endocrine Medical History: Reports: Hx Diabetes Mellitus Type 2, Hx Hyperthyroidism, Hx Hypothyroidism Renal/ Medical History: Reports: Hx Kidney Stones Malignancy Medical History: Reports: Hx Breast Cancer GI Medical History: Reports: Hx Gastroesophageal Reflux Disease Musculoskeletal Medical History: Reports Hx Arthritis, Reports Hx Musculoskeletal Deformity, Reports Hx Musculoskeletal Trauma Psychiatric Medical History: Reports: Hx Bipolar Disorder, Hx Depression Traumatic Medical History: Reports: Hx Fractures - right leg(small break) Infectious Medical History: Past Surgical History: Reports: Hx Adenoidectomy, Hx Appendectomy, Hx Cardiac Catheterization, Hx Cardiac Surgery - Double Bypass, Hx Cholecystectomy, Hx Coronary Artery Bypass Graft - 1996, Hx Hysterectomy, Hx Mastectomy - rt 1994, Hx Orthopedic Surgery - Right Hip replacement, bilateral knee replacements, Hx Tonsillectomy - Immunizations Immunizations up to date: Yes Hx Diphtheria, Pertussis, Tetanus Vaccination: Yes Hx Pneumococcal Vaccination: 09/07/11 <ANJELICA LEE - Last Filed: 07/10/18 14:48> Review of Systems - Review of Systems -: Yes ROS unobtainable due to patient's medical condition <ANJELICA LEE - Last Filed: 07/10/18 14:48> - Vital signs Vitals: Resp Pulse Ox 15 87 L 07/10/18 14:38 07/10/18 14:38 Course - Laboratory Result Diagrams: 07/10/18 14:20 07/10/18 14:20 <ANJELICA LEE - Last Filed: 07/10/18 14:48> - Laboratory Result Diagrams: 07/10/18 14:20 07/10/18 14:20 - Diagnostic Test Radiology reviewed: Image reviewed, Reports reviewed - Chronic elevation of the left hemidiaphragm, left basilar infiltrate - EKG Interpretation by Fl EKG shows normal: Sinus rhythm, [place], Intervals, ST-T Waves. abnormal: QRS Complexes - Old inferior infarct Rate: Normal - 83 Rhythm: NSR [place]/QRS: IVCD Voltage: Consistant with LVH - Consults Dr. Morris Time consulted: 16:47 Consulted provider: will see as inpatient <SAMSON CARCAMO - Last Filed: 07/10/18 18:51> - Re-evaluation Re-evalutation: 07/10/18 18:40 After 2 L IV fluids, patient's blood pressure is now up to 110/55 with a pulse of 79. (SAMSON CARCAMO) - Vital Signs Vital signs: Temp Pulse Resp BP Pulse Ox 17 84/39 L 84 L 07/10/18 15:30 07/10/18 15:30 07/10/18 15:15 - Laboratory Laboratory results interpreted by me: 07/10/18 07/10/18 07/10/18 14:20 14:20 14:20 WBC 16.0 H RBC 3.62 L Hgb 11.4 L Hct 34.0 L Seg Neuts % (Manual) 82 H Lymphocytes % (Manual) 8 L Abs Neuts (Manual) 13.8 H VBG pCO2 66.9 H* VBG HCO3 35.9 H Chloride 91 L Carbon Dioxide 33 H BUN 45 H Est GFR ( Amer) 53 L Est GFR (Non-Af Amer) 44 L Glucose 185 H Alkaline Phosphatase 139 H CK-MB (CK-2) Total Protein 5.8 L Urine Blood Ur Leukocyte Esterase 07/10/18 07/10/18 14:20 15:59 WBC RBC Hgb Hct Seg Neuts % (Manual) Lymphocytes % (Manual) Abs Neuts (Manual) VBG pCO2 VBG HCO3 Chloride Carbon Dioxide BUN Est GFR ( Amer) Est GFR (Non-Af Amer) Glucose Alkaline Phosphatase CK-MB (CK-2) 6.74 H Total Protein Urine Blood SMALL H Ur Leukocyte Esterase LARGE H Critical Care Note - Critical Care Note Total time excluding time spent on procedures (mins): 40 <SAMSON CARCAMO - Last Filed: 07/10/18 18:51> Discharge <ANJELICA LEE - Last Filed: 07/10/18 14:48> - Discharge Admitting Provider: Hospitalist Unit Admitted: Medical Floor <SAMSON CARCAMO - Last Filed: 07/10/18 18:51> - Discharge Clinical Impression: Hypoxemia, Dehydration, Elevated troponin, Non-ST elevated myocardial infarction Pneumonia Qualifiers: Pneumonia type: due to unspecified organism Laterality: left Lung location: lower lobe of lung Qualified Code(s): J18.1 - Lobar pneumonia, unspecified organism Leukocytosis Qualifiers: Leukocytosis type: bandemia Qualified Code(s): D72.825 - Bandemia Urinary tract infection Qualifiers: Urinary tract infection type: site unspecified Hematuria presence: with carroll turia Qualified Code(s): N39.0 - Urinary tract infection, site not specified Hypotension Qualifiers: Hypotension type: unspecified hypotension type Qualified Code(s): I95.9 - Hypotension, unspecified Condition: Fair Disposition: ADMITTED INPATIENT Referrals: DENICE MORRIS MD [Primary Care Provider] - Follow up as needed Scribe Attestation: 07/10/18 18:50 I personally performed the services described in the documentation, reviewed and edited the documentation which was dictated to the scribe in my presence, and it accurately records my words and actions. (SAMSON CARCAMO) Scribe Documentation - Scribe Written by Ninfae:: Migue Hunter, 07/10/2018 1542 acting as scribe for :: Frantz <ANJELICA LEE - Last Filed: 07/10/18 14:48>
[2018-07-10 14:45] LABS: HEMOGLOBIN 11.4 g/dL (12.0-15.5); MEAN CORPUSCULAR HEMOGLOBIN 31.6 pg (27.0-33.4); MEAN CORPUSCULAR HGB CONC 33.6 g/dL (32.0-36.0); MEAN CORPUSCULAR VOLUME 94 fl (80-97); PLATELET COUNT 277 10^3/uL (150-450); RED BLOOD COUNT 3.62 10^6/uL (3.72-5.28); RED CELL DISTRIBUTION WIDTH 13.8 % (11.5-14.0); VENOUS BLOOD PCO2 66.9 mmHg (35-63)
[2018-07-10 14:46] LABS: INTERNATIONAL RATION (INR) 1.06; PROTHROMBIN TIME 14.3 SEC (11.4-15.4)
[2018-07-10 15:03] LABS: ABSOLUTE LYMPHOCYTES# (MANUAL) 1.3 10^3/uL (0.5-4.7); ABSOLUTE NEUTROPHILS# (MANUAL) 13.8 10^3/uL (1.7-8.2); BAND NEUTROPHILS % (MANUAL) 4 % (3-5); BASOPHILS % (MANUAL) 0 % (0-2); EOSINOPHILS % (MANUAL) 0 % (0-6); LYMPHOCYTES % (MANUAL) 8 % (13-45); MONOCYTES % (MANUAL) 6 % (3-13); PLATELET COMMENT ADEQUATE; POLYCHROMASIA SLIGHT; SEGMENTED NEUTROPHILS % (MAN) 82 % (42-78); TOTAL CELLS COUNTED 100; TOXIC GRANULATION 1+; TOXIC VACUOLATION PRESENT
[2018-07-10 15:09] LABS: ALANINE AMINOTRANSFERASE 29 U/L (9-52); ALBUMIN 3.7 g/dL (3.5-5.0); ALKALINE PHOSPHATASE 139 U/L (38-126); ANION GAP 14 (5-19); ASPARTATE AMINO TRANSFERASE 34 U/L (14-36); BILIRUBIN,DIRECT 0.4 mg/dL (0.0-0.4); BILIRUBIN,TOTAL 0.8 mg/dL (0.2-1.3); BLOOD UREA NITROGEN 45 mg/dL (7-20); CALCIUM 8.6 mg/dL (8.4-10.2); CARBON DIOXIDE 33 mmol/L (22-30); CHLORIDE 91 mmol/L (98-107); GLUCOSE 185 mg/dL (75-110); POTASSIUM 4.3 mmol/L (3.6-5.0); SODIUM 138.1 mmol/L (137-145); TOTAL PROTEIN 5.8 g/dL (6.3-8.2)
[2018-07-10 15:19] LABS: CREATINE KINASE MB 6.74 ng/mL (<4.55)
[2018-07-10] MEDS ORDERED: NORMAL SALINE 1000 ML 1,000 ML IV ONE ×3 (15:19→18:05)
--- NOTE | 2018-07-10 15:20 | RADIOLOGY REPORT (SQ) ---
EXAM DESCRIPTION: CHEST SINGLE VIEW COMPLETED DATE/TIME: 07/10/2018 3:04 pm REASON FOR STUDY: bed 19 sepsis protocol COMPARISON: 05/18/2018. EXAM PARAMETERS: NUMBER OF VIEWS: One view. TECHNIQUE: Single frontal radiographic view of the chest acquired. RADIATION DOSE: NA LIMITATIONS: None. FINDINGS: LUNGS AND PLEURA: Chronic elevation of the left hemidiaphragm. Suspect airspace disease i n the left lung base posterior to the heart. MEDIASTINUM AND HILAR STRUCTURES: No masses. Contour normal. HEART AND VASCULAR STRUCTURES: Heart normal in size. Chronic hilar fullness. BONES: Chronic deformity of the right shoulder. HARDWARE: Sternotomy wires, coronary bypass markers, and multiple surgical clips. OTHER: No other significant finding. IMPRESSION: CHRONIC ELEVATION OF THE LEFT HEMIDIAPHRAGM. SUSPECT INFILTRATE/PNEUMONIA IN THE LEFT L BLANKA BASE. TECHNICAL DOCUMENTATION: JOB ID: [id number] [employer]- All Rights Reserved Reading location - IP/workstation name: [email or web address]
[2018-07-10 15:22] LABS: TROPONIN I 5.5 ng/mL
[2018-07-10] MEDS ORDERED: LEVOFLOXACIN 750 MG/D5W RTU 750 MG/150 ML RTUPB IV ONE (15:25)
[2018-07-10 16:47] LABS: AMORPHOUS SEDIMENT,URINE 1+ /HPF; APPEARANCE,URINE TURBID; BILIRUBIN,URINE NEGATIVE (NEGATIVE); COLOR,URINE YELLOW; GLUCOSE, URINE NEGATIVE (NEGATIVE); KETONES,URINE NEGATIVE (NEGATIVE); LEUKOCYTE ESTERASE,URINE LARGE (NEGATIVE); NITRITE,URINE NEGATIVE (NEGATIVE); PROTEIN,URINE NEGATIVE (NEGATIVE); URINE SPECIFIC GRAVITY 1.006; UROBILINOGEN,URINE NEGATIVE mg/dL (<2.0)
--- NOTE | 2018-07-10 18:00 | EKG REPORT ---
SEVERITY:- ABNORMAL ECG - SINUS RHYTHM NONSPECIFIC INTRAVENTRICULAR CONDUCTION DELAY PROBABLE LEFT VENTRICULAR HYPERTROPHY INFERIOR INFARCT, AGE INDETERMINATE : Confirmed by: Caitlin Castanon 10-Jul-2018 17:59:27
[2018-07-10] MEDS ORDERED: (PENDING PHARMACY ID) (Oxycodone Hcl/Acetaminophen [Percocet 10-325 Mg Tablet] 1 TAB) PO PRN (21:23)
[2018-07-10] MEDS ORDERED: (PENDING PHARMACY ID) (Linagliptin [Tradjenta] 5 MG) PO SCH (21:30)
[2018-07-10] MEDS: NORMAL SALINE 1000 ML 1,000 ML IV PRN (22:00)
[2018-07-10] MEDS: ASPIRIN 81 MG TABLET, ENT COATED PO SCH (22:08)
[2018-07-10] MEDS: PREDNISONE 5 MG TABLET PO SCH (22:09)
[2018-07-10] MEDS: MEMANTINE HCL 10 MG TABLET PO SCH (22:09)
[2018-07-10] MEDS: DULOXETINE HCL 30 MG CAPSULE.DR PO SCH (22:09)
[2018-07-10] MEDS: FLUTICASONE/UMECLIDIN/VILANTER 100-62.5-25 MCG/DOSE IH SCH (22:10)
[2018-07-10] MEDS: ENOXAPARIN SODIUM INJ 100 MG/1 ML DISP.SYRIN SUBCUT SCH (22:15)
[2018-07-10] MEDS: OXYCODONE HCL IR 5 MG TABLET PO PRN (22:26)
[2018-07-10 22:41] LABS: INTERNATIONAL RATION (INR) 1.15; PROTHROMBIN TIME 15.3 SEC (11.4-15.4)
[2018-07-10 22:42] LABS: PARTIAL THROMBOPLASTIN TIME 35.1 SEC (23.5-35.8)
[2018-07-10] MEDS ORDERED: CEFTRIAXONE 1 GM/D5W RTU 1 GM/50 ML RTUPB IV ONE (23:00)
[2018-07-10 23:08] LABS: CREATINE KINASE MB 18.3 ng/mL (<4.55)
[2018-07-10 23:14] LABS: TROPONIN I 17.2 ng/mL
[2018-07-11] MEDS ORDERED: CEFTRIAXONE 1 GM/D5W RTU 1 GM/50 ML RTUPB IV ONE (00:24)
[2018-07-11 04:36] LABS: ABSOLUTE EOSINOPHILS # (AUTO) 0.1 10^3/uL (0.0-0.6); ABSOLUTE LYMPHOCYTES (AUTO) 1.4 10^3/uL (0.5-4.7); ABSOLUTE MONOCYTES (AUTO) 0.9 10^3/uL (0.1-1.4); BASOPHILS % (AUTO) 0.2 % (0-2); EOSINOPHILS % (AUTO) 0.5 % (0-6); HEMATOCRIT 28.8 % (36.0-47.0); HEMOGLOBIN 9.8 g/dL (12.0-15.5); LYMPHOCYTES % (AUTO) 11.4 % (13-45); MEAN CORPUSCULAR HEMOGLOBIN 31.9 pg (27.0-33.4); MEAN CORPUSCULAR HGB CONC 34.2 g/dL (32.0-36.0); MEAN CORPUSCULAR VOLUME 93 fl (80-97); MONOCYTES % (AUTO) 6.9 % (3-13); PLATELET COUNT 222 10^3/uL (150-450); RED BLOOD COUNT 3.09 10^6/uL (3.72-5.28); TOTAL CELLS COUNTED % (AUTO) 100 %; WHITE BLOOD COUNT 12.3 10^3/uL (4.0-10.5)
[2018-07-11 04:54] LABS: CHOLESTEROL 133.89 mg/dL (0-200); TRIGLYCERIDES 74 mg/dL (<150)
[2018-07-11 05:05] LABS: CREATINE KINASE MB 14.6 ng/mL (<4.55); DIRECT LDL 73 mg/dL (<100)
[2018-07-11 05:10] LABS: TROPONIN I 19.1 ng/mL
[2018-07-11 10:45] LABS: TROPONIN I 15.3 ng/mL
[2018-07-11] MEDS: NORMAL SALINE 1000 ML 1,000 ML IV PRN (10:53)
[2018-07-11] MEDS: METOPROLOL TARTRATE 25 MG TABLET PO SCH (10:54)
[2018-07-11] MEDS: OXYCODONE HCL IR 5 MG TABLET PO PRN ×3 (10:54→22:52)
[2018-07-11] MEDS: ASPIRIN 81 MG TABLET, ENT COATED PO SCH (10:54)
[2018-07-11] MEDS: DULOXETINE HCL 30 MG CAPSULE.DR PO SCH (10:59)
[2018-07-11] MEDS: SITAGLIPTIN PHOSPHATE 50 MG TABLET PO SCH (10:59)
[2018-07-11] MEDS: MEMANTINE HCL 10 MG TABLET PO SCH ×2 (10:59→22:01)
[2018-07-11] MEDS: FLUTICASONE/UMECLIDIN/VILANTER 100-62.5-25 MCG/DOSE IH SCH (11:00)
[2018-07-11] MEDS: PREDNISONE 5 MG TABLET PO SCH (11:00)
[2018-07-11] MEDS: ENOXAPARIN SODIUM INJ 100 MG/1 ML DISP.SYRIN SUBCUT SCH ×2 (11:04→22:01)
[2018-07-11] MEDS: IPRATROPIUM/ALBUTEROL 0.5-2.5 MG/3 ML AMPUL NEB PRN (14:10)
--- NOTE | 2018-07-11 18:57 | PDOC H&P ---
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 In the emergency room she was evaluated pneumonia and UTI was suspected the chest x-ray showed possible infiltrate of the left lower lobe the urinalysis was grossly abnormal with pyuria, bact eriuria. 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, there was leukocytosis with a left shift the differential diagnosis would include urinary tract infection, pneumonia, acute non-ST elevated [place] , chronic use of prednisone Past Medical History Cardiac Medical History: Reports: Congestive Heart Failure, Coronary Artery Disease, Myocardial Infarction, Hyperlipidema, Hypertension Pulmonary Medical History: Reports: Asthma, Bronchitis, Chronic Obstructive Pulmonary Disease (COPD), Pneumonia, Sleep Apnea Neurological Medical History: Endocrine Medical History: Reports: Diabetes Mellitus Type 2, Hyperthyroidism, Hypothyroidism Renal/ Medical History: Malignancy Medical History: Reports: Breast Cancer GI Medical History: Reports: Gastroesophageal Reflux Disease Musculoskeltal Medical History: Reports: Arthritis Psychiatric Medical History: Reports: Bipolar Disorder, Depression Hematology: Reports: Anemia Infectious Medical History: Past Surgical History Past Surgical History: Reports: Adenoidectomy, Appendectomy, Cardiac Catheterization, Cholecystectomy, Coronary Artery Bypass Graft - 1996, Hysterectomy, Mastectomy - rt 1994, Orthopedic Surgery - Right Hip replacement, bilateral knee replacements, Tonsillectomy Social History Lives with: Family Smoking Status: Former Smoker Frequency of Alcohol Use: None Hx Recreational Drug Use: No Drugs: None Hx Prescription Drug Abuse: No - Advance Directive Resuscitation Status: Do Not Resuscitate Family History Family History: Reviewed & Not Pertinent, CAD, CVA, DM, Hyperlipidemia, Hypertension Parental Family History Reviewed: Yes Children Family History Reviewed: Yes Sibling(s) Family History Reviewed.: Yes Medication/Allergy Home Medications: Albuterol Sulfate [Proair HFA Inhalation Aerosol 8.5 gm MDI] 2 puff IH Q4HP PRN 07/10/18 Ascorbic Acid [Vitamin C 500 mg Tablet] 500 mg PO DAILY 07/10/18 Aspirin [Ecotrin 81 mg EC Tablet] 81 mg PO DAILY 07/10/18 Docusate Sodium [Colace 100 mg Capsule] 100 mg PO BID 07/10/18 Duloxetine HCl [Cymbalta] 60 mg PO DAILY 07/10/18 Fluticasone/Umeclidin/Vilanter [Trelegy 100-62.5-25 Mcg Ellipta 14 Dose/Dpi] 1 puff IH DAILY 07/10/18 Furosemide [Lasix 40 mg Tablet] 40 mg PO QAM 07/10/18 Gabapentin [Neurontin 300 mg Capsule] 300 mg PO Q8 07/10/18 Ipratropium/Albuterol Sulfate [Duoneb 3 ml Ampul] 3 ml NEB Q6HP PRN 07/10/18 Linagliptin [Tradjenta] 5 mg PO DAILY 07/10/18 Loratadine [Claritin 10 mg Tablet] 10 mg PO DAILY 07/10/18 Losartan/Hydrochlorothiazide [Hyzaar 100-25 Tablet] 1 tab PO DAILY 07/10/18 Memantine HCl [Namenda 10 mg Tablet] 10 mg PO BID 07/10/18 Metoprolol Tartrate [Lopressor 25 mg Tablet] 25 mg PO DAILY 07/10/18 Multivitamin [Tab-A-Carey (Multiple Vitamin) Tablet] 1 tab PO DAILY 07/10/18 Oxycodone HCl/Acetaminophen [Percocet 10-325 mg Tablet] 1 tab PO 5XDP PRN 07/10/18 Prednisone [Deltasone 5 mg Tablet] 5 mg PO DAILY 07/10/18 Allergies/Adverse Reactions: codeine [Codeine] Allergy (Severe, Verified 09/26/17 19:17) headache bacitracin [From Neosporin ([id number])] Allergy (Verified 09/26/17 19:17) gabapentin Allergy (Verified 09/26/17 19:17) neomycin [From Neosporin (gqk-vsz-tlfib)] Allergy (Verified 09/26/17 19:17) polymyxin B [From Neosporin ([id number]-ddp-udmiz)] Allergy (Verified 09/26/17 19:17) pregabalin [From Lyrica] Allergy (Verified 09/26/17 19:17) Hallucinations Sulfa (Sulfonamide Antibiotics) Allergy (Verified 09/26/17 19:17) itching Review of Systems ROS unobtainable: Due to mental status Physical Exam Vital Signs: Temp Pulse Resp BP Pulse Ox 99.3 F 74 24 H 129/80 H 96 07/11/18 15:23 07/11/18 15:23 07/11/18 15:23 07/11/18 15:23 07/11/18 15:23 Intake & Output 07/10/18 07/11/18 07/12/18 06:59 06:59 06:59 Intake Total 4200 2045 Output Total 800 Balance 4200 1245 Weight 100.4 kg General appearance: PRESENT: mild distress Head exam: PRESENT: atraumatic, normocephalic Eye exam: PRESENT: PERRLA Mouth exam: PRESENT: moist Neck exam: PRESENT: full ROM Respiratory exam: PRESENT: crackles, rhonchi Cardiovascular exam: PRESENT: RRR, +S1, +S2 Pulses: PRESENT: normal dorsalis pedis pul, +2 pedal pulses bilateral Vascular exam: PRESENT: normal capillary refill GI/Abdominal exam: PRESENT: soft Rectal exam: PRESENT: deferred Neurological exam: PRESENT: alert, CN II-XII grossly intact Results Laboratory Results: 07/11/18 04:13 07/10/18 14:20 07/10/18 07/11/18 07/11/18 22:05 04:13 04:13 WBC 12.3 H RBC 3.09 L Hgb 9.8 L Hct 28.8 L MCV 93 MCH 31.9 MCHC 34.2 RDW 14.0 Plt Count 222 Seg Neutrophils % 81.0 H Lymphocytes % 11.4 L Monocytes % 6.9 Eosinophils % 0.5 Basophils % 0.2 Absolute Neutrophils 10.0 H Absolute Lymphocytes 1.4 Absolute Monocytes 0.9 Absolute Eosinophils 0.1 Absolute Basophils 0.0 Phosphorus 4.5 Triglycerides 74 Cholesterol 133.89 LDL Cholesterol Direct 73 VLDL Cholesterol 15.0 HDL Cholesterol 41 07/10/18 07/10/18 07/10/18 14:20 14:20 22:05 Creatine Kinase 128 CK-MB (CK-2) 6.74 H 18.30 H Troponin I 5.500 17.200 07/11/18 07/11/18 04:13 10:04 Creatine Kinase CK-MB (CK-2) 14.60 H 18.00 H Troponin I 19.100 15.300 Impressions: Chest X-Ray 07/10/18 14:25 IMPRESSION: CHRONIC ELEVATION OF THE LEFT HEMIDIAPHRAGM. SUSPECT INFILTRATE/PNEUMONIA IN THE LEFT LUNG BASE. Assessment & Plan - Diagnosis (1) Non-ST elevated myocardial infarction Is this a current diagnosis for this admission?: Yes Plan: She has severe elevated troponin with a background of abnormal EKG, this suggests [place], start Lovenox at 1 MG per KG subcu every 12, aspirin ,beta-katherine once patient stabilizes (2) Hypotension Qualifiers: Hypotension type: idiopathic hypotension Qualified Code(s): I95.0 - Idiop athic hypotension Is this a current diagnosis for this admission?: Yes Plan: The focus now is to stabilize this patient hemodynamically, hydrate with fluid (3) Urinary tract infection Qualifiers: Urinary tract infection type: site unspecified Hematuria presence: without hematuria Qualified Code(s): N39.0 - Urinary tract infection, site not sp ecified Is this a current diagnosis for this admission?: Yes Plan: Start IV Rocephin (4) Pneumonia Qualifiers: Pneumonia type: due to unspecified organism Laterality: left Lung location: lower lobe of lung Qualified Code(s): J18.1 - Lobar pneumonia, unspecified organism Is this a current diagnosis for this admission?: Yes (5) Acute hypoxemic respiratory failure Is this a current diagnosis for this admission?: Yes
[2018-07-11] MEDS: CEFTRIAXONE 1 GM/D5W RTU 1 GM/50 ML RTUPB IV SCH (22:00)
[2018-07-12 06:18] LABS: HEMATOCRIT 30.1 % (36.0-47.0); HEMOGLOBIN 10.4 g/dL (12.0-15.5); MEAN CORPUSCULAR HEMOGLOBIN 31.7 pg (27.0-33.4); MEAN CORPUSCULAR HGB CONC 34.4 g/dL (32.0-36.0); MEAN CORPUSCULAR VOLUME 92 fl (80-97); PLATELET COUNT 232 10^3/uL (150-450); RED BLOOD COUNT 3.27 10^6/uL (3.72-5.28); RED CELL DISTRIBUTION WIDTH 13.7 % (11.5-14.0); WHITE BLOOD COUNT 11.5 10^3/uL (4.0-10.5)
[2018-07-12 06:40] LABS: APPEARANCE,URINE CLOUDY; BILIRUBIN,URINE NEGATIVE (NEGATIVE); COLOR,URINE YELLOW; GLUCOSE, URINE NEGATIVE (NEGATIVE); KETONES,URINE 20 mg/dL (NEGATIVE); LEUKOCYTE ESTERASE,URINE SMALL (NEGATIVE); NITRITE,URINE NEGATIVE (NEGATIVE); PROTEIN,URINE 100 mg/dL (NEGATIVE); URINE SPECIFIC GRAVITY 1.013; UROBILINOGEN,URINE NEGATIVE mg/dL (<2.0)
[2018-07-12] MEDS: DULOXETINE HCL 30 MG CAPSULE.DR PO SCH (08:59)
[2018-07-12] MEDS: ASPIRIN 81 MG TABLET, ENT COATED PO SCH (09:00)
[2018-07-12] MEDS: PREDNISONE 5 MG TABLET PO SCH (09:00)
[2018-07-12] MEDS: METOPROLOL TARTRATE 25 MG TABLET PO SCH (09:00)
[2018-07-12] MEDS: SITAGLIPTIN PHOSPHATE 50 MG TABLET PO SCH (09:00)
[2018-07-12] MEDS: ENOXAPARIN SODIUM INJ 100 MG/1 ML DISP.SYRIN SUBCUT SCH ×2 (09:01→21:03)
[2018-07-12] MEDS: FLUTICASONE/UMECLIDIN/VILANTER 100-62.5-25 MCG/DOSE IH SCH (09:01)
[2018-07-12] MEDS: MEMANTINE HCL 10 MG TABLET PO SCH ×2 (09:01→21:03)
[2018-07-12] MEDS: OXYCODONE HCL IR 5 MG TABLET PO PRN ×2 (09:02→14:17)
[2018-07-12] MEDS: OXYCODONE-ACETAMINOPHEN 5-325 MG TABLET PO PRN ×2 (09:02→14:16)
[2018-07-12] MEDS: IPRATROPIUM/ALBUTEROL 0.5-2.5 MG/3 ML AMPUL NEB PRN ×2 (11:12→16:16)
[2018-07-12] MEDS: CEFTRIAXONE 1 GM/D5W RTU 1 GM/50 ML RTUPB IV SCH (21:03)
--- NOTE | 2018-07-12 21:55 | PDOC PROGRESS REPORT ---
Subjective Progress Note for:: 07/12/18 Subjective:: Patient was seen by the bedside, she says she is afraid that she was going to , she has a sense of doom probably because of the acute MD that she sustained. She also have staph aureus pneumonia, E. coli UTI, both bacteria sensitive to ceftriaxone, patient already ceftriaxone Reason For Visit: ACUTE NSTMI, UTI, ENCEPHALOPATHY Physical Exam Vital Signs: Temp Pulse Resp BP Pulse Ox 97.9 F 78 18 167/47 H 97 07/12/18 15:43 07/12/18 19:00 07/12/18 16:16 07/12/18 15:43 07/12/18 16:16 Intake & Output 07/11/18 07/12/18 07/13/18 06:59 06:59 06:59 Intake Total 4200 2095 400 Output Total 800 600 Balance 4200 1295 -200 Weight 100.4 kg 101.5 kg General appearance: PRESENT: no acute distress Eye exam: PRESENT: PERRLA Respiratory exam: PRESENT: wheezes Cardiovascular exam: PRESENT: +S1, +S2 GI/Abdominal exam: PRESENT: soft Neurological exam: PRESENT: alert, CN II-XII grossly intact Results Laboratory Results: 07/12/18 05:42 07/10/18 14:20 07/12/18 07/12/18 07/12/18 05:42 06:12 08:00 WBC 11.5 H RBC 3.27 L Hgb 10.4 L Hct 30.1 L MCV 92 MCH 31.7 MCHC 34.4 RDW 13.7 Plt Count 232 Urine Color YELLOW Urine Appearance CLOUDY Urine pH 5.0 Ur Specific Jeffrey 1.013 Urine Protein 100 H Urine Glucose (UA) NEGATIVE Urine Ketones 20 H Urine Blood LARGE H Urine Nitrite NEGATIVE Ur Leukocyte Esterase SMALL H Urine WBC (Auto) 29 Urine RBC (Auto) >182 Stool Occult Blood NEGATIVE 07/10/18 15:59 Catheterized Urine Urine Culture - Final Escherichia Coli 07/10/18 07/10/18 07/10/18 14:20 14:20 22:05 Creatine Kinase 128 CK-MB (CK-2) 6.74 H 18.30 H Troponin I 5.500 17.200 07/11/18 07/11/18 04:13 10:04 Creatine Kinase CK-MB (CK-2) 14.60 H 18.00 H Troponin I 19.100 15.300 Impressions: Chest X-Ray 07/10/18 14:25 IMPRESSION: CHRONIC ELEVATION OF THE LEFT HEMIDIAPHRAGM. SUSPECT INFILTRATE/PNEUMONIA IN THE LEFT LUNG BASE. Assessment & Plan - Diagnosis (1) Non-ST elevated myocardial infarction Is this a current diagnosis for this admission?: Yes Plan: Patient is not a candidate for coronary intervention, she is managed medically, 2D echo was done (2) Hypotension Qualifiers: Hypotension type: idiopathic hypotension Qualified Code(s): I95.0 - Idiopathic hypotension Is this a current diagnosis for this admission?: Yes Plan: This is resolved (3) Pneumonia Qualifiers: Pneumonia type: due to unspecified organism Laterality: left Lung location: lower lobe of lung Qualified Code(s): J18.1 - Lobar pneumonia, unspecified organism Is this a current diagnosis for this admission?: Yes (4) Acute hypoxemic respiratory failure Is this a current diagnosis for this admission?: Yes (5) E. coli UTI Is this a current diagnosis for this admission?: Yes Plan: Continue ceftriaxone (6) Pneumonia due to Staphylococcus aureus Is this a current diagnosis for this admission?: Yes Plan: Continue ceftriaxone (7) Anxiety Is this a current diagnosis for this admission?: Yes Plan: She is anxious, start BuSpar
--- NOTE | 2018-07-12 22:15 | XCELERA REPORT ---
[address] [address] Transthoracic Echocardiogram Report Name: SINAN MONTGOMERY Age: 88 yrs Gender: Female : 1930 Patient Status: Inpatient Patient Location: [address] [place], [place] [address]A Study Date: 07/11/2018 09:26 AM Height: 63 in Weight: 221 lb BSA: 2.0 m2 Procedure: A two-dimensional transthoracic echocardiogram with color flow and Doppler was performed. The study was technically difficult with many images being suboptimal in quality. Reason For Study: LV Function, size, wall thickness,Valve Function History: ELEVATED TROPONIN. Ordering Physician: DENICE MORRIS Performed By: Clarissa Meza Interpretation Summary The left ventricle is mildly dilated. There is normal left ventricular wall thickness. LV EF is 35% to 40% Left ventricular systolic function is moderately reduced. Doppler measurements suggest impaired left ventricular relaxation, which is associated with grade I/IV or mild diastolic dysfunction There is moderate global hypokinesis of the left ventricle. Septal motion is consistent with conduction abnormality There is no thrombus. The right ventricle is mild to moderately dilated. The right ventricular systolic function is mild to moderately reduced. The right atrium is mildly dilated. The left atrium is mildly dilated. There is no evidence of mitral valve prolapse. There is no vegetation seen on the mitral valve. There is no mitral valve stenosis. There is a mild amount of mitral regurgitation There is no aortic valvular vegetation. There is no aortic valve stenosis There is no LVOT obstruction. There is aortic sclerosis without aortic stenosis. No aortic regurgitation is present. There is a mild amount of tricuspid regurgitation Right ventricular systolic pressure is normal. RVSP is 23 to 28 mm of Hg , with RA mean of 5 to 10. There is no pulmonic valvular stenosis. There is a moderate amount of pulmonic regurgitation The aortic root is normal size. There is no pericardial effusion. MMode/2D Measurements & Calculations RVDd: 4.1 cm LVIDd: 5.6 cm FS: 20.0 % Ao root diam: 2.7 cm IVSd: 1.1 cm LVIDs: 4.5 cm EDV(Teich): 156.4 ml Ao root area: 5.6 cm2 LVPWd: 1.1 cm ESV(Teich): 93.2 ml LA dimension: 4.2 cm EF(Teich): 40.4 % Doppler Measurements & Calculations MV E max jesse: MV P1/2t max jesse: Ao V2 max: LV V1 max P.3 cm/sec 91.8 cm/sec 161.3 cm/sec 5.1 mmHg MV A max jesse: MV P1/2t: 73.0 msec Ao max PG: LV V1 max: 97.7 cm/sec MVA(P1/2t): 3.0 cm2 10.4 mmHg 113.0 cm/sec MV E/A: 0.92 MV dec slope: 368.5 cm/sec2 MV dec time: 0.25 sec PA V2 max: PI end-d jesse: TR max jesse: MV P1/2t-pr_phl: 94.3 cm/sec 165.3 cm/sec 213.6 cm/sec 73.0 msec PA max PG: TR max P.6 mmHg 18.2 mmHg Left Ventricle The left ventricle is mildly dilated. There is normal left ventricular wall thickness. LV EF is 35% to 40%. Left ventricular systolic function is moderately reduced. Doppler measurements suggest impaired left ventricular relaxation, which is associated with grade I/IV or mild diastolic dysfunction. There is moderate global hypokinesis of the left ventricle. Septal motion is consistent with conduction abnormality. There is no thrombus. Right Ventricle The right ventricle is mild to moderately dilated. The right ventricular systolic function is mild to moderately reduced. Atria The right atrium is mildly dilated. The left atrium is mildly dilated. Mitral Valve There is no evidence of mitral valve prolapse. There is no vegetation seen on the mitral valve. There is no mitral valve stenosis. There is a mild amount of mitral regurgitation. Aortic Valve There is no aortic valvular vegetation. There is no aortic valve stenosis. There is no LVOT obstruction. There is aortic sclerosis without aortic stenosis. No aortic regurgitation is present. Tricuspid Valve There is no tricuspid stenosis. There is a mild amount of tricuspid regurgitation. Right ventricular systolic pressure is normal. RVSP is 23 to 28 mm of Hg , with RA mean of 5 to 10. Pulmonic Valve There is no pulmonic valvular stenosis. There is a moderate amount of pulmonic regurgitation. Great Vessels The aortic root is normal size. Effusions There is no pericardial effusion. : DENICE MORRIS > Dora Gonzalez
[2018-07-12] MEDS: BUSPIRONE HCL 10 MG TABLET PO SCH (22:56)
[2018-07-13] MEDS: OXYCODONE HCL IR 5 MG TABLET PO PRN ×4 (00:13→19:36)
[2018-07-13] MEDS: OXYCODONE-ACETAMINOPHEN 5-325 MG TABLET PO PRN ×4 (00:14→19:36)
[2018-07-13 05:05] LABS: ABSOLUTE EOSINOPHILS # (AUTO) 0.1 10^3/uL (0.0-0.6); ABSOLUTE LYMPHOCYTES (AUTO) 1.3 10^3/uL (0.5-4.7); ABSOLUTE MONOCYTES (AUTO) 0.5 10^3/uL (0.1-1.4); ABSOLUTE NEUT (AUTO) 8.4 10^3/uL (1.7-8.2); BASOPHILS % (AUTO) 0.3 % (0-2); EOSINOPHILS % (AUTO) 0.7 % (0-6); HEMATOCRIT 29.3 % (36.0-47.0); HEMOGLOBIN 10.3 g/dL (12.0-15.5); LYMPHOCYTES % (AUTO) 12.8 % (13-45); MEAN CORPUSCULAR HEMOGLOBIN 32.1 pg (27.0-33.4); MEAN CORPUSCULAR HGB CONC 35.3 g/dL (32.0-36.0); MEAN CORPUSCULAR VOLUME 91 fl (80-97); MONOCYTES % (AUTO) 4.9 % (3-13); PLATELET COUNT 235 10^3/uL (150-450); RED BLOOD COUNT 3.23 10^6/uL (3.72-5.28); RED CELL DISTRIBUTION WIDTH 13.6 % (11.5-14.0); SEGMENTED NEUTROPHILS % (AUTO) 81.3 % (42-78); TOTAL CELLS COUNTED % (AUTO) 100 %; WHITE BLOOD COUNT 10.3 10^3/uL (4.0-10.5)
[2018-07-13] MEDS: IPRATROPIUM/ALBUTEROL 0.5-2.5 MG/3 ML AMPUL NEB PRN (08:10)
[2018-07-13] MEDS: DULOXETINE HCL 30 MG CAPSULE.DR PO SCH (09:55)
[2018-07-13] MEDS: ASPIRIN 81 MG TABLET, ENT COATED PO SCH (09:55)
[2018-07-13] MEDS: METOPROLOL TARTRATE 25 MG TABLET PO SCH (09:55)
[2018-07-13] MEDS: MEMANTINE HCL 10 MG TABLET PO SCH ×2 (09:56→22:01)
[2018-07-13] MEDS: PREDNISONE 5 MG TABLET PO SCH (09:56)
[2018-07-13] MEDS: BUSPIRONE HCL 10 MG TABLET PO SCH ×2 (09:56→22:01)
[2018-07-13] MEDS: SITAGLIPTIN PHOSPHATE 50 MG TABLET PO SCH (09:56)
[2018-07-13] MEDS: ENOXAPARIN SODIUM INJ 100 MG/1 ML DISP.SYRIN SUBCUT SCH ×2 (09:57→22:04)
[2018-07-13] MEDS: FLUTICASONE/UMECLIDIN/VILANTER 100-62.5-25 MCG/DOSE IH SCH (09:57)
[2018-07-13] MEDS ORDERED: ATORVASTATIN CALCIUM 40 MG TABLET PO ONE (10:00)
--- NOTE | 2018-07-13 10:48 | PDOC PROGRESS REPORT ---
Subjective Progress Note for:: 07/13/18 Subjective:: Patient was admitted for the non-ST [place] and also had a pneumonia E. coli UTI Patient is complaining of allover body pain Patient is currently on IV Rocephin Patient is still complaining of some cough congestions Patient is denied any chest pain today Patient is very anxious Patient's daughter on the bedside with extensive discussions with the daughter Reason For Visit: ACUTE NSTMI, UTI, ENCEPHALOPATHY Physical Exam Vital Signs: Temp Pulse Resp BP Pulse Ox 98.0 F 71 18 188/158 H 91 L 07/13/18 07:55 07/13/18 07:55 07/13/18 07:55 07/13/18 07:55 07/13/18 07:55 Intake & Output 07/12/18 07/13/18 07/14/18 06:59 06:59 06:59 Intake Total 2095 450 Output Total 800 600 Balance 1295 -150 Weight 101.5 kg 102.7 kg General appearance: PRESENT: no acute distress, well-developed, well-nourished Head exam: PRESENT: atraumatic, normocephalic Eye exam: PRESENT: conjunctiva pink, EOMI, PERRLA. ABSENT: scleral icterus Ear exam: PRESENT: normal external ear exam Mouth exam: PRESENT: moist, tongue midline Neck exam: PRESENT: full ROM. ABSENT: carotid bruit, JVD, lymphadenopathy, thyromegaly Respiratory exam: PRESENT: clear to auscultation julio Cardiovascular exam: PRESENT: RRR. ABSENT: diastolic murmur, rubs, systolic murmur Pulses: PRESENT: normal dorsalis pedis pul, +2 pedal pulses bilateral Vascular exam: PRESENT: normal capillary refill GI/Abdominal exam: PRESENT: normal bowel sounds, soft. ABSENT: distended, guarding, mass, organolmegaly, rebound, tenderness Rectal exam: PRESENT: deferred Neurological exam: PRESENT: alert, awake, oriented to person, oriented to place, oriented to time. ABSENT: motor sensory deficit Psychiatric exam: PRESENT: appropriate affect, normal mood. ABSENT: homicidal ideation, suicidal ideation Skin exam: PRESENT: dry, intact, warm. ABSENT: cyanosis, rash Results Laboratory Results: 07/13/18 04:15 07/10/18 14:20 07/13/18 04:15 WBC 10.3 RBC 3.23 L Hgb 10.3 L Hct 29.3 L MCV 91 MCH 32.1 MCHC 35.3 RDW 13.6 Plt Count 235 Seg Neutrophils % 81.3 H Lymphocytes % 12.8 L Monocytes % 4.9 Eosinophils % 0.7 Basophils % 0.3 Absolute Neutrophils 8.4 H Absolute Lymphocytes 1.3 Absolute Monocytes 0.5 Absolute Eosinophils 0.1 Absolute Basophils 0.0 07/10/18 15:59 Catheterized Urine Urine Culture - Final Escherichia Coli 07/10/18 07/10/18 07/10/18 14:20 14:20 22:05 Creatine Kinase 128 CK-MB (CK-2) 6.74 H 18.30 H Troponin I 5.500 17.200 07/11/18 07/11/18 04:13 10:04 Creatine Kinase CK-MB (CK-2) 14.60 H 18.00 H Troponin I 19.100 15.300 Impressions: Chest X-Ray 07/10/18 14:25 IMPRESSION: CHRONIC ELEVATION OF THE LEFT HEMIDIAPHRAGM. SUSPECT INFILTRATE/PNEUMONIA IN THE LEFT LUNG BASE. Assessment & Plan - Diagnosis (1) Non-ST elevated myocardial infarction Is this a current diagnosis for this admission?: Yes Plan: Continues to current medication as per discussed with the cardiology nothing else needs to be a cardiac intervention at this point discussed with the daughter (2) E. coli UTI Is this a current diagnosis for this admission?: Yes Plan: Continues to IV antibiotic (3) Hypotension Qualifiers: Hypotension type: unspecified hypotension type Qualified Code(s): I95.9 - Hypotension, unspecified Is this a current diagnosis for this admission?: Yes Plan: Currently all stable (4) Pneumonia Qualifiers: Pneumonia type: due to unspecified organism Laterality: left Lung locat ion: lower lobe of lung Qualified Code(s): J18.1 - Lobar pneumonia, unspecified organism Is this a current diagnosis for this admission?: Yes Plan: Will get the chest x-ray Will change to IV antibiotic to better coverage the gram-negative and gram- positive organisms (5) Diabetes mellitus type 2 in obese Is this a current diagnosis for this admission?: Yes Plan: Tenderness to current medications - Time Time Spent with patient: 25-34 minutes Medications reviewed and adjusted accordingly: Yes Anticipated discharge: Other Within: Other - Plan Summary Plan Summary: Will change the IV's Rocephin to the cefepime Get a chest x-ray Consult cardiology Discussed with the daughter regarding the patient's current conditions with the not very good prognosis
--- NOTE | 2018-07-13 13:31 | RADIOLOGY REPORT (SQ) ---
EXAM DESCRIPTION: CHEST SINGLE VIEW COMPLETED DATE/TIME: 07/13/2018 12:24 pm REASON FOR STUDY: pnemonia COMPARISON: 07/10/2018 TECHNIQUE: Single frontal radiographic view of the chest acquired. NUMBER OF VIEWS: One view. LIMITATIONS: None. FINDINGS: LUNGS AND PLEURA: No pneumothorax. Persistent markings in the left medial lung base thoug h there has been improved interval aeration since the prior exam. No significant pleural effusion. MEDIASTINUM AND HILAR STRUCTURES: Stable. HEART AND VASCULAR STRUCTURES: Stable. BONES: No acute findings. HARDWARE: CABG. OTHER: No other significant finding. IMPRESSION: Persistent markings in the left medial lung base though there has been improved interval aeration since the prior exam. TECHNICAL DOCUMENTATION: JOB ID: [id number] [place]-72 2010 [employer]- All Rights Reserved Reading location - IP/workstation name: [email or web address]
[2018-07-13] MEDS: CEFEPIME 1 GM/D5W RTU 1 GM/50 ML RTUPB IV SCH (22:03)
[2018-07-14] MEDS: OXYCODONE HCL IR 5 MG TABLET PO PRN ×4 (00:32→20:17)
[2018-07-14] MEDS: OXYCODONE-ACETAMINOPHEN 5-325 MG TABLET PO PRN ×4 (00:33→20:16)
[2018-07-14] MEDS: IPRATROPIUM/ALBUTEROL 0.5-2.5 MG/3 ML AMPUL NEB PRN (04:49)
[2018-07-14 06:46] LABS: ABSOLUTE EOSINOPHILS # (AUTO) 0.2 10^3/uL (0.0-0.6); ABSOLUTE LYMPHOCYTES (AUTO) 1.4 10^3/uL (0.5-4.7); ABSOLUTE MONOCYTES (AUTO) 0.5 10^3/uL (0.1-1.4); ABSOLUTE NEUT (AUTO) 7.2 10^3/uL (1.7-8.2); BASOPHILS % (AUTO) 0.2 % (0-2); HEMOGLOBIN 10.6 g/dL (12.0-15.5); LYMPHOCYTES % (AUTO) 14.6 % (13-45); MEAN CORPUSCULAR HEMOGLOBIN 31.4 pg (27.0-33.4); MEAN CORPUSCULAR HGB CONC 34.3 g/dL (32.0-36.0); MEAN CORPUSCULAR VOLUME 92 fl (80-97); MONOCYTES % (AUTO) 5.5 % (3-13); PLATELET COUNT 244 10^3/uL (150-450); RED BLOOD COUNT 3.39 10^6/uL (3.72-5.28); RED CELL DISTRIBUTION WIDTH 13.6 % (11.5-14.0); SEGMENTED NEUTROPHILS % (AUTO) 77.7 % (42-78); TOTAL CELLS COUNTED % (AUTO) 100 %; WHITE BLOOD COUNT 9.2 10^3/uL (4.0-10.5)
[2018-07-14 07:02] LABS: ANION GAP 9 (5-19); BLOOD UREA NITROGEN 13 mg/dL (7-20); CALCIUM 8.3 mg/dL (8.4-10.2); CARBON DIOXIDE 30 mmol/L (22-30); CHLORIDE 102 mmol/L (98-107); GLUCOSE 101 mg/dL (75-110); POTASSIUM 3.2 mmol/L (3.6-5.0); SODIUM 140.6 mmol/L (137-145)
[2018-07-14] MEDS: ENOXAPARIN SODIUM INJ 100 MG/1 ML DISP.SYRIN SUBCUT SCH ×2 (09:41→21:06)
[2018-07-14] MEDS: BUSPIRONE HCL 10 MG TABLET PO SCH ×2 (09:42→21:05)
[2018-07-14] MEDS: FLUTICASONE/UMECLIDIN/VILANTER 100-62.5-25 MCG/DOSE IH SCH (09:42)
[2018-07-14] MEDS: METOPROLOL TARTRATE 25 MG TABLET PO SCH (09:42)
[2018-07-14] MEDS: ASPIRIN 81 MG TABLET, ENT COATED PO SCH (09:42)
[2018-07-14] MEDS: DULOXETINE HCL 30 MG CAPSULE.DR PO SCH (09:42)
[2018-07-14] MEDS: CEFEPIME 1 GM/D5W RTU 1 GM/50 ML RTUPB IV SCH ×2 (09:43→21:09)
[2018-07-14] MEDS: SITAGLIPTIN PHOSPHATE 50 MG TABLET PO SCH (09:43)
[2018-07-14] MEDS: PREDNISONE 5 MG TABLET PO SCH (09:43)
[2018-07-14] MEDS: MEMANTINE HCL 10 MG TABLET PO SCH ×2 (09:43→21:05)
[2018-07-14] MEDS ORDERED: POTASSIUM CHLORIDE 10 MEQ CAPSULE.ER PO ONE (13:00)
--- NOTE | 2018-07-14 13:23 | PDOC PROGRESS REPORT ---
Subjective Progress Note for:: 07/14/18 Subjective:: Patient was admitted for the non-ST [place] and also had a pneumonia E. coli UTI Patient is complaining of allover body pain Patient is currently on IV Rocephin Patient is still complaining of some cough congestions Patient is denied any chest pain today Patient is very anxious Patient's daughter on the bedside with extensive discussions with the daughter Reason For Visit: ACUTE NSTMI, UTI, ENCEPHALOPATHY Physical Exam Vital Signs: Temp Pulse Resp BP Pulse Ox 98.4 F 68 20 164/61 H 99 07/14/18 11:36 07/14/18 11:36 07/14/18 11:36 07/14/18 11:36 07/14/18 11:36 Intake & Output 07/13/18 07/14/18 07/15/18 06:59 06:59 06:59 Intake Total 450 1130 50 Output Total 600 1175 Balance -150 -45 50 Weight 102.7 kg 103.4 kg General appearance: PRESENT: no acute distress, well-developed, well-nourished Head exam: PRESENT: atraumatic, normocephalic Eye exam: PRESENT: conjunctiva pink, EOMI, PERRLA. ABSENT: scleral icterus Ear exam: PRESENT: normal external ear exam Mouth exam: PRESENT: moist, tongue midline Neck exam: PRESENT: full ROM. ABSENT: carotid bruit, JVD, lymphadenopathy, thy romegaly Respiratory exam: PRESENT: clear to auscultation julio Cardiovascular exam: PRESENT: RRR. ABSENT: diastolic murmur, rubs, systolic murmur Pulses: PRESENT: normal dorsalis pedis pul, +2 pedal pulses bilateral Vascular exam: PRESENT: normal capillary refill GI/Abdominal exam: PRESENT: normal bowel sounds, soft. ABSENT: distended, guarding, mass, organolmegaly, rebound, tenderness Rectal exam: PRESENT: deferred Neurological exam: PRESENT: alert, awake, oriented to person, oriented to place. ABSENT: motor sensory deficit Psychiatric exam: PRESENT: appropriate affect, normal mood. ABSENT: homicidal ideation, suicidal ideation Skin exam: PRESENT: dry, intact, warm. ABSENT: cyanosis, rash Results Laboratory Results: 07/14/18 05:57 07/14/18 05:57 07/14/18 07/14/18 05:57 05:57 WBC 9.2 RBC 3.39 L Hgb 10.6 L Hct 31.0 L MCV 92 MCH 31.4 MCHC 34.3 RDW 13.6 Plt Count 244 Seg Neutrophils % 77.7 Lymphocytes % 14.6 Monocytes % 5.5 Eosinophils % 2.0 Basophils % 0.2 Absolute Neutrophils 7.2 Absolute Lymphocytes 1.4 Absolute Monocytes 0.5 Absolute Eosinophils 0.2 Absolute Basophils 0.0 Sodium 140.6 Potassium 3.2 L Chloride 102 Carbon Dioxide 30 Anion Gap 9 BUN 13 Creatinine 0.51 L Est GFR ( Amer) > 60 Est GFR (Non-Af Amer) > 60 Glucose 101 Calcium 8.3 L 07/10/18 07/10/18 07/10/18 14:20 14:20 22:05 Creatine Kinase 128 CK-MB (CK-2) 6.74 H 18.30 H Troponin I 5.500 17.200 07/11/18 07/11/18 04:13 10:04 Creatine Kinase CK-MB (CK-2) 14.60 H 18.00 H Troponin I 19.100 15.300 Impressions: Chest X-Ray 07/13/18 00:00 IMPRESSION: Persistent markings in the left medial lung base though there has been improved interval aeration since the prior exam. Assessment & Plan - Diagnosis (1) Non-ST elevated myocardial infarction Is this a current diagnosis for this admission?: Yes Plan: Discussed with the Dr. Gonzalez and he talked to the patient's family and continues to current medications (2) E. coli UTI Is this a current diagnosis for this admission?: Yes Plan: Continues to IV antibiotic (3) Hypotension Qualifiers: Hypotension type: unspecified hypotension type Qualified Code(s): I95.9 - Hypotension, unspecified Is this a current diagnosis for this admission?: Yes Plan: Currently all stable (4) Pneumonia Qualifiers: Pneumonia type: due to unspecified organism Laterality: left Lung location: lower lobe of lung Qualified Code(s): J18.1 - Lobar pneumonia, unspecified organism Is this a current diagnosis for this admission?: Yes Plan: Patient's chest x-ray is all improving (5) Diabetes mellitus type 2 in obese Is this a current diagnosis for this admission?: Yes Plan: Tenderness to current medications - Time Time Spent with patient: 15-24 minutes Medications reviewed and adjusted accordingly: Yes Anticipated discharge: SNF Within: Other - Plan Summary Plan Summary: Will get the physical therapy evaluations Discussed with the daughter on the bedside
[2018-07-14] MEDS: ATORVASTATIN CALCIUM 40 MG TABLET PO SCH (21:05)
[2018-07-15] MEDS: OXYCODONE HCL IR 5 MG TABLET PO PRN ×2 (01:32→13:52)
[2018-07-15] MEDS: OXYCODONE-ACETAMINOPHEN 5-325 MG TABLET PO PRN ×3 (01:33→21:41)
[2018-07-15 05:00] LABS: HEMATOCRIT 30.7 % (36.0-47.0); HEMOGLOBIN 10.6 g/dL (12.0-15.5); MEAN CORPUSCULAR HEMOGLOBIN 31.9 pg (27.0-33.4); MEAN CORPUSCULAR HGB CONC 34.5 g/dL (32.0-36.0); MEAN CORPUSCULAR VOLUME 93 fl (80-97); PLATELET COUNT 259 10^3/uL (150-450); RED BLOOD COUNT 3.32 10^6/uL (3.72-5.28); RED CELL DISTRIBUTION WIDTH 13.7 % (11.5-14.0); WHITE BLOOD COUNT 8.7 10^3/uL (4.0-10.5)
[2018-07-15 05:15] LABS: ANION GAP 7 (5-19); BLOOD UREA NITROGEN 14 mg/dL (7-20); CALCIUM 8.2 mg/dL (8.4-10.2); CARBON DIOXIDE 31 mmol/L (22-30); CHLORIDE 103 mmol/L (98-107); GLUCOSE 104 mg/dL (75-110); POTASSIUM 3.6 mmol/L (3.6-5.0); SODIUM 141.4 mmol/L (137-145)
[2018-07-15 08:39] LABS: APPEARANCE,URINE CLEAR; BILIRUBIN,URINE NEGATIVE (NEGATIVE); COLOR,URINE YELLOW; GLUCOSE, URINE NEGATIVE (NEGATIVE); KETONES,URINE NEGATIVE (NEGATIVE); LEUKOCYTE ESTERASE,URINE NEGATIVE (NEGATIVE); NITRITE,URINE NEGATIVE (NEGATIVE); PROTEIN,URINE 30 mg/dL (NEGATIVE); URINE SPECIFIC GRAVITY 1.012; UROBILINOGEN,URINE NEGATIVE mg/dL (<2.0)
[2018-07-15] MEDS: CEFEPIME 1 GM/D5W RTU 1 GM/50 ML RTUPB IV SCH ×2 (11:09→21:45)
[2018-07-15] MEDS: PREDNISONE 5 MG TABLET PO SCH (11:10)
[2018-07-15] MEDS: METOPROLOL TARTRATE 25 MG TABLET PO SCH (11:10)
[2018-07-15] MEDS: MEMANTINE HCL 10 MG TABLET PO SCH ×2 (11:10→21:45)
[2018-07-15] MEDS: ASPIRIN 81 MG TABLET, ENT COATED PO SCH (11:10)
[2018-07-15] MEDS: BUSPIRONE HCL 10 MG TABLET PO SCH ×2 (11:10→21:41)
[2018-07-15] MEDS: DULOXETINE HCL 30 MG CAPSULE.DR PO SCH (11:10)
[2018-07-15] MEDS: SITAGLIPTIN PHOSPHATE 50 MG TABLET PO SCH (11:10)
[2018-07-15] MEDS: ENOXAPARIN SODIUM INJ 100 MG/1 ML DISP.SYRIN SUBCUT SCH ×2 (11:11→21:41)
[2018-07-15] MEDS: FLUTICASONE/UMECLIDIN/VILANTER 100-62.5-25 MCG/DOSE IH SCH (11:16)
[2018-07-15] MEDS: IPRATROPIUM/ALBUTEROL 0.5-2.5 MG/3 ML AMPUL NEB PRN (13:19)
[2018-07-15] MEDS: ATORVASTATIN CALCIUM 40 MG TABLET PO SCH (21:41)
--- NOTE | 2018-07-15 22:32 | PDOC PROGRESS REPORT ---
Subjective Progress Note for:: 07/15/18 Subjective:: Patient seen by the bedside she is more alert, oriented Reason For Visit: ACUTE NSTMI, UTI, ENCEPHALOPATHY Physical Exam Vital Signs: Temp Pulse Resp BP Pulse Ox 97.7 F 83 18 119/59 L 100 07/15/18 19:41 07/15/18 19:41 07/15/18 19:41 07/15/18 19:41 07/15/18 19:41 Intake & Output 07/14/18 07/15/18 07/16/18 06:59 06:59 06:59 Intake Total 1130 1539 1110 Output Total 1175 800 420 Balance -45 739 690 Weight 103.4 kg 100.2 kg General appearance: PRESENT: no acute distress Eye exam: PRESENT: PERRLA Cardiovascular exam: PRESENT: +S1, +S2 GI/Abdominal exam: PRESENT: soft Neurological exam: PRESENT: alert Results Laboratory Results: 07/15/18 04:39 07/15/18 04:39 07/15/18 07/15/18 07/15/18 04:39 04:39 08:20 WBC 8.7 RBC 3.32 L Hgb 10.6 L Hct 30.7 L MCV 93 MCH 31.9 MCHC 34.5 RDW 13.7 Plt Count 259 Sodium 141.4 Potassium 3.6 Chloride 103 Carbon Dioxide 31 H Anion Gap 7 BUN 14 Creatinine 0.50 L Est GFR ( Amer) > 60 Est GFR (Non-Af Amer) > 60 Glucose 104 Calcium 8.2 L Urine Color YELLOW Urine Appearance CLEAR Urine pH 6.0 Ur Specific [place] 1.012 Urine Protein 30 H Urine Glucose (UA) NEGATIVE Urine Ketones NEGATIVE Urine Blood LARGE H Urine Nitrite NEGATIVE Ur Leukocyte Esterase NEGATIVE Urine WBC (Auto) 6 Urine RBC (Auto) 80 07/10/18 15:39 Blood Blood Culture - Final NO GROWTH IN 5 DAYS 07/10/18 14:20 Blood Blood Culture - Final NO GROWTH IN 5 DAYS 07/10/18 15:59 Sputum Gram Stain - Final 07/10/18 15:59 Sputum Sputum Culture - Final Staphylococcus Aureus Morax.(Branhamella)Catarrhalis Reduced Normal Jovana 07/10/18 07/10/18 07/10/18 14:20 14:20 22:05 Creatine Kinase 128 CK-MB (CK-2) 6.74 H 18.30 H Troponin I 5.500 17.200 07/11/18 07/11/18 04:13 10:04 Creatine Kinase CK-MB (CK-2) 14.60 H 18.00 H Troponin I 19.100 15.300 Impressions: Chest X-Ray 07/13/18 00:00 IMPRESSION: Persistent markings in the left medial lung base though there has been improved interval aeration since the prior exam. Assessment & Plan - Diagnosis (1) Non-ST elevated myocardial infarction Is this a current diagnosis for this admission?: Yes (2) Hypotension Qualifiers: Hypotension type: idiopathic hypotension Qualified Code(s): I95.0 - Idiopathic hypotension Is this a current diagnosis for this admission?: Yes (3) Pneumonia Qualifiers: Pneumonia type: due to unspecified organism Laterality: left Lung location: lower lobe of lung Qualified Code(s): J18.1 - Lobar pneumonia, unspecified organism Is this a current diagnosis for this admission?: Yes (4) Acute hypoxemic respiratory failure Is this a current diagnosis for this admission?: Yes (5) E. coli UTI Is this a current diagnosis for this admission?: Yes Plan: Continue cefepime (6) Pneumonia due to Staphylococcus aureus Is this a current diagnosis for this admission?: Yes Plan: Continue cefepime (7) Anxiety Is this a current diagnosis for this admission?: Yes Plan: continue buspar
[2018-07-16] MEDS: OXYCODONE HCL IR 5 MG TABLET PO PRN ×3 (02:53→20:17)
[2018-07-16] MEDS: OXYCODONE-ACETAMINOPHEN 5-325 MG TABLET PO PRN ×3 (02:54→20:16)
[2018-07-16 07:12] LABS: ANION GAP 7 (5-19); BLOOD UREA NITROGEN 11 mg/dL (7-20); CALCIUM 8.5 mg/dL (8.4-10.2); CARBON DIOXIDE 34 mmol/L (22-30); CHLORIDE 102 mmol/L (98-107); GLUCOSE 94 mg/dL (75-110); POTASSIUM 3.6 mmol/L (3.6-5.0); SODIUM 142.6 mmol/L (137-145)
[2018-07-16] MEDS: ENOXAPARIN SODIUM INJ 100 MG/1 ML DISP.SYRIN SUBCUT SCH ×2 (10:26→21:35)
[2018-07-16] MEDS: MEMANTINE HCL 10 MG TABLET PO SCH ×2 (10:27→21:41)
[2018-07-16] MEDS: BUSPIRONE HCL 10 MG TABLET PO SCH ×2 (10:27→21:35)
[2018-07-16] MEDS: SITAGLIPTIN PHOSPHATE 50 MG TABLET PO SCH (10:27)
[2018-07-16] MEDS: METOPROLOL TARTRATE 25 MG TABLET PO SCH (10:28)
[2018-07-16] MEDS: ASPIRIN 81 MG TABLET, ENT COATED PO SCH (10:28)
[2018-07-16] MEDS: DULOXETINE HCL 30 MG CAPSULE.DR PO SCH (10:28)
[2018-07-16] MEDS: PREDNISONE 5 MG TABLET PO SCH (10:30)
[2018-07-16] MEDS: CEFEPIME 1 GM/D5W RTU 1 GM/50 ML RTUPB IV SCH ×2 (10:31→21:36)
[2018-07-16] MEDS: FLUTICASONE/UMECLIDIN/VILANTER 100-62.5-25 MCG/DOSE IH SCH (10:32)
[2018-07-16] MEDS: IPRATROPIUM/ALBUTEROL 0.5-2.5 MG/3 ML AMPUL NEB PRN (18:45)
[2018-07-16] MEDS: ATORVASTATIN CALCIUM 40 MG TABLET PO SCH (21:35)
--- NOTE | 2018-07-16 21:49 | PDOC PROGRESS REPORT ---
Subjective Progress Note for:: 07/16/18 Subjective:: Patient seen by the bedside Reason For Visit: ACUTE NSTMI, UTI, ENCEPHALOPATHY Physical Exam Vital Signs: Temp Pulse Resp BP Pulse Ox 98.4 F 83 19 155/42 H 99 07/16/18 19:42 07/16/18 19:42 07/16/18 19:42 07/16/18 19:42 07/16/18 19:42 Intake & Output 07/15/18 07/16/18 07/17/18 06:59 06:59 06:59 Intake Total 1539 1560 450 Output Total 800 920 150 Balance 739 640 300 Weight 100.2 kg 99.3 kg General appearance: PRESENT: no acute distress Eye exam: PRESENT: PERRLA Respiratory exam: PRESENT: clear to auscultation julio Cardiovascular exam: PRESENT: +S1, +S2 GI/Abdominal exam: PRESENT: soft Neurological exam: PRESENT: alert Results Laboratory Results: 07/15/18 04:39 07/16/18 06:27 07/16/18 06:27 Sodium 142.6 Potassium 3.6 Chloride 102 Carbon Dioxide 34 H Anion Gap 7 BUN 11 Creatinine 0.50 L Est GFR ( Amer) > 60 Est GFR (Non-Af Amer) > 60 Glucose 94 Calcium 8.5 07/10/18 07/10/18 07/10/18 14:20 14:20 22:05 Creatine Kinase 128 CK-MB (CK-2) 6.74 H 18.30 H Troponin I 5.500 17.200 07/11/18 07/11/18 04:13 10:04 Creatine Kinase CK-MB (CK-2) 14.60 H 18.00 H Troponin I 19.100 15.300 Impressions: Chest X-Ray 07/13/18 00:00 IMPRESSION: Persistent markings in the left medial lung base though there has been improved interval aeration since the prior exam. Assessment & Plan - Diagnosis (1) Non-ST elevated myocardial infarction Is this a current diagnosis for this admission?: Yes Plan: I spoke to the daughter for a long time about diagnosis and prognosis (2) Hypotension Qualifiers: Hypotension type: idiopathic hypotension Qualified Code(s): I95.0 - Idiopathic hypotension Is this a current diagnosis for this admission?: Yes (3) Pneumonia Qualifiers: Pneumonia type: due to unspecified organism Laterality: left Lung location: lower lobe of lung Qualified Code(s): J18.1 - Lobar pneumonia, unspecified organism Is this a current diagnosis for this admission?: Yes (4) Acute hypoxemic respiratory failure Is this a current diagnosis for this admission?: Yes (5) E. coli UTI Is this a current diagnosis for this admission?: Yes (6) Pneumonia due to Staphylococcus aureus Is this a current diagnosis for this admission?: Yes Plan: Continue present treatment, get chest x-ray (7) Anxiety Is this a current diagnosis for this admission?: Yes
--- NOTE | 2018-07-16 22:22 | RADIOLOGY REPORT (SQ) ---
EXAM DESCRIPTION: XR CHEST 1 VIEW COMPLETED DATE/TME: 07/16/2018 00:00 CLINICAL HISTORY: 88 years, Female, pneumonia COMPARISON: 07/13/2018 chest x-ray NUMBER OF VIEWS: 1 TECHNIQUE: Portable chest LIMITATIONS: None. FINDINGS: Heart size is stable. Stable postsurgical change. Osteopenia. Mild elevation of the left hemidiaphragm with a small left pleural effusion. Mild pulmonary vascular congestion. Osteopenia. No pneumothorax. Chronic changes to the right shoulder IMPRESSION: Small left pleural effusion with mild pulmonary vascular congestion. copyright 2010 [employer]- All Rights Reserved
[2018-07-17] MEDS: IPRATROPIUM/ALBUTEROL 0.5-2.5 MG/3 ML AMPUL NEB PRN ×3 (00:22→20:12)
[2018-07-17] MEDS: OXYCODONE HCL IR 5 MG TABLET PO PRN ×3 (00:43→21:58)
[2018-07-17] MEDS: OXYCODONE-ACETAMINOPHEN 5-325 MG TABLET PO PRN ×3 (00:44→21:59)
[2018-07-17 05:32] LABS: HEMOGLOBIN 10.4 g/dL (12.0-15.5); MEAN CORPUSCULAR HEMOGLOBIN 31.8 pg (27.0-33.4); MEAN CORPUSCULAR HGB CONC 34.6 g/dL (32.0-36.0); MEAN CORPUSCULAR VOLUME 92 fl (80-97); PLATELET COUNT 285 10^3/uL (150-450); RED BLOOD COUNT 3.26 10^6/uL (3.72-5.28); RED CELL DISTRIBUTION WIDTH 13.8 % (11.5-14.0); WHITE BLOOD COUNT 10.3 10^3/uL (4.0-10.5)
[2018-07-17] MEDS: METOPROLOL TARTRATE 25 MG TABLET PO SCH (10:38)
[2018-07-17] MEDS: BUSPIRONE HCL 10 MG TABLET PO SCH ×2 (10:39→21:36)
[2018-07-17] MEDS: DULOXETINE HCL 30 MG CAPSULE.DR PO SCH (10:39)
[2018-07-17] MEDS: ASPIRIN 81 MG TABLET, ENT COATED PO SCH (10:40)
[2018-07-17] MEDS: ENOXAPARIN SODIUM INJ 100 MG/1 ML DISP.SYRIN SUBCUT SCH ×2 (10:41→21:37)
[2018-07-17] MEDS: PREDNISONE 5 MG TABLET PO SCH (10:42)
[2018-07-17] MEDS: SITAGLIPTIN PHOSPHATE 50 MG TABLET PO SCH (10:44)
[2018-07-17] MEDS: MEMANTINE HCL 10 MG TABLET PO SCH ×2 (10:45→21:36)
[2018-07-17] MEDS: FLUTICASONE/UMECLIDIN/VILANTER 100-62.5-25 MCG/DOSE IH SCH (10:45)
--- NOTE | 2018-07-17 14:49 | RADIOLOGY REPORT (SQ) ---
EXAM DESCRIPTION: PICC INSERTION; FLUORO/CV PLACEMENT; U/S GUIDE FOR VASCULAR ACCESS COMPLETED DATE/TIME: 07/17/2018 1:44 pm; 07/17/2018 1:45 pm REASON FOR STUDY: no IV access, on IV antibiotics; IV ABX; IV ACCESS COMPARISON: AP chest 07/16/2018 FLUOROSCOPY TIME: 20 seconds 1 digital fluoroscopic and 1 ultrasound images saved to PACS. TECHNIQUE: Fluoroscopic and ultrasound guided PICC placement. LIMITATIONS: None. PROCEDURE: After written consent and assessment were obtained, the patient was brought into the fluo roscopy room and placed supine on the table. Ultrasound evaluation of potential access sites were per formed. After successfully identifying a patent right basilic vein, the right arm was prepped and ismael ped in a sterile fashion along with the ultrasound probe. The entry site was anesthetized with 1% lid ocaine. A 21 gauge 7 cm needle was advanced through the skin and into the basilic vein under live ult rasound guidance. An ultrasound image was saved to PACS confirming access site. A .018 guide wire w as then inserted through the needle and into the venous system. The needle was then removed and an 11 blade scalpel was used to make a 1cm skin incision. A 5 fr peel-away sheath was advanced over the w bella and into the venous system. A measurement was then made using the existing wire and live fluorosc opic guidance. The wire was then removed and trimmed. The PICC was advanced through the peel-away she ath and into the venous system. The peel-away sheath was removed and the catheter was adhered to the patients arm with a stat lock. The catheter was then aspirated and flushed and a sterile bandage was placed over the access site. A fluoroscopic spot image was saved to PACS confirming the catheter tip within the superior vena cava. IMPRESSION: SUCCESSFUL PLACEMENT OF A 5 FR DUAL LUMEN 42 CM PICC IN THE RIGHT BASILIC VEIN. COMMENT: Patient medication list reviewed: Yes- Quality ID# [id number]:Eligible professional attests to doc umenting in the medical record they obtained, updated, or reviewed the patient's current medications. . Quality ID 145: Final reports for procedures using fluoroscopy that document radiation exposure goyo esperanza, or exposure time and number of fluorographic images (if radiation exposure indices are not avail able) Quality ID #76: The patient was prepped and draped using maximum sterile barrier technique including cap, mask, sterile gown, sterile gloves, a large sterile sheet, hand hygiene, and 2% Chlorhexidine fo r cutaneous antisepsis. When ultrasound is used, sterile ultrasound techniques are followed requiring sterile gel and sterile probes. TECHNICAL DOCUMENTATION: JOB ID: [id number] [employer]- All Rights Reserved rev-11/09 Reading location - IP/workstation name: [email or web address] [id number]
[2018-07-17] MEDS: CEFEPIME 1 GM/D5W RTU 1 GM/50 ML RTUPB IV SCH ×2 (15:32→21:54)
[2018-07-17] MEDS ORDERED: NORMAL SALINE 10 ML SDV (AFTER EACH USE) IV PRN (18:00)
--- NOTE | 2018-07-17 18:34 | PDOC PROGRESS REPORT ---
Subjective Progress Note for:: 07/17/18 Subjective:: Patient seen by the bedside, she has no IV access, a PICC line was inserted today by interventional radiology Reason For Visit: ACUTE NSTMI, UTI, ENCEPHALOPATHY Physical Exam Vital Signs: Temp Pulse Resp BP Pulse Ox 97.9 F 74 12 161/52 H 100 07/17/18 16:00 07/17/18 16:00 07/17/18 16:00 07/17/18 16:00 07/17/18 16:00 Intake & Output 07/16/18 07/17/18 07/18/18 06:59 06:59 06:59 Intake Total 1560 700 524 Output Total 920 850 500 Balance 640 -150 24 Weight 99.3 kg 100.4 kg General appearance: PRESENT: no acute distress Eye exam: PRESENT: PERRLA Respiratory exam: PRESENT: rhonchi Cardiovascular exam: PRESENT: +S1, +S2 GI/Abdominal exam: PRESENT: soft Neurological exam: PRESENT: alert Results Laboratory Results: 07/17/18 05:13 07/16/18 06:27 07/17/18 05:13 WBC 10.3 RBC 3.26 L Hgb 10.4 L Hct 30.0 L MCV 92 MCH 31.8 MCHC 34.6 RDW 13.8 Plt Count 285 07/10/18 07/10/18 07/10/18 14:20 14:20 22:05 Creatine Kinase 128 CK-MB (CK-2) 6.74 H 18.30 H Troponin I 5.500 17.200 07/11/18 07/11/18 04:13 10:04 Creatine Kinase CK-MB (CK-2) 14.60 H 18.00 H Troponin I 19.100 15.300 Impressions: Chest X-Ray 07/16/18 00:00 IMPRESSION: Small left pleural effusion with mild pulmonary vascular congestion. copyright 2010 [employer]- All Rights Reserved Guidance Fluoroscopy 07/17/18 00:00 IMPRESSION: SUCCESSFUL PLACEMENT OF A 5 FR DUAL LUMEN 42 CM PICC IN THE RIGHT B ASILIC VEIN. Interventional Vascular Procedure 07/17/18 00:00 IMPRESSION: SUCCESSFUL PLACEMENT OF A 5 FR DUAL LUMEN 42 CM PICC IN THE RIGHT BASILIC VEIN. PICC Line Insertion 07/17/18 00:00 IMPRESSION: SUCCESSFUL PLACEMENT OF A 5 FR DUAL LUMEN 42 CM PICC IN THE RIGHT BASILIC VEIN. Assessment & Plan - Diagnosis (1) Non-ST elevated myocardial infarction Is this a current diagnosis for this admission?: Yes Plan: Continue present treatment (2) Hypotension Qualifiers: Hypotension type: idiopathic hypotension Qualified Code(s): I95.0 - Idiopathic hypotension Is this a current diagnosis for this admission?: Yes Plan: Resolved (3) Pneumonia Qualifiers: Pneumonia type: due to unspecified organism Laterality: left Lung location: lower lobe of lung Qualified Code(s): J18.1 - Lobar pneumonia, unspecified organism Is this a current diagnosis for this admission?: Yes Plan: Continue IV antibiotic (4) Acute hypoxemic respiratory failure Is this a current diagnosis for this admission?: Yes (5) E. coli UTI Is this a current diagnosis for this admission?: Yes Plan: Continue antibiotic (6) Pneumonia due to Staphylococcus aureus Is this a current diagnosis for this admission?: Yes (7) Anxiety Is this a current diagnosis for this admission?: Yes Plan: Continue BuSpar
[2018-07-17] MEDS: ATORVASTATIN CALCIUM 40 MG TABLET PO SCH (21:36)
[2018-07-17] MEDS: NORMAL SALINE 10 ML SDV (SCHEDULED) IV SCH (21:37)
[2018-07-18] MEDS: BUSPIRONE HCL 10 MG TABLET PO SCH ×3 (09:43→23:07)
[2018-07-18] MEDS: DULOXETINE HCL 30 MG CAPSULE.DR PO SCH (09:43)
[2018-07-18] MEDS: METOPROLOL TARTRATE 25 MG TABLET PO SCH (09:44)
[2018-07-18] MEDS: MEMANTINE HCL 10 MG TABLET PO SCH ×2 (09:44→23:09)
[2018-07-18] MEDS: ASPIRIN 81 MG TABLET, ENT COATED PO SCH (09:44)
[2018-07-18] MEDS: PREDNISONE 5 MG TABLET PO SCH (09:45)
[2018-07-18] MEDS: SITAGLIPTIN PHOSPHATE 50 MG TABLET PO SCH (09:46)
[2018-07-18] MEDS: CEFEPIME 1 GM/D5W RTU 1 GM/50 ML RTUPB IV SCH ×2 (09:47→23:11)
[2018-07-18] MEDS: ENOXAPARIN SODIUM INJ 100 MG/1 ML DISP.SYRIN SUBCUT SCH (09:49)
[2018-07-18] MEDS: NORMAL SALINE 10 ML SDV (SCHEDULED) IV SCH ×2 (09:49→23:09)
[2018-07-18] MEDS: FLUTICASONE/UMECLIDIN/VILANTER 100-62.5-25 MCG/DOSE IH SCH (09:50)
[2018-07-18] MEDS: IPRATROPIUM/ALBUTEROL 0.5-2.5 MG/3 ML AMPUL NEB PRN (17:20)
[2018-07-18] MEDS: OXYCODONE HCL IR 5 MG TABLET PO PRN (19:41)
[2018-07-18] MEDS: OXYCODONE-ACETAMINOPHEN 5-325 MG TABLET PO PRN (19:41)
--- NOTE | 2018-07-18 21:32 | PDOC PROGRESS REPORT ---
Subjective Progress Note for:: 07/18/18 Subjective:: Patient was seen by the bedside, she is very anxious despite starting BuSpar at 10 mg every 12, dose to be increased to 20 mg every 12. She also had hematuria most likely related to trauma to the summers catheter with a background of Lovenox at 100 mg every 12, Lovenox dose is decreased dose of VTE prophylaxis dose Reason For Visit: ACUTE NSTMI, UTI, ENCEPHALOPATHY Physical Exam Vital Signs: Temp Pulse Resp BP Pulse Ox 98 F 78 18 177/60 H 97 07/18/18 03:46 07/18/18 19:00 07/18/18 17:20 07/18/18 03:46 07/18/18 17:20 Intake & Output 07/17/18 07/18/18 07/19/18 06:59 06:59 06:59 Intake Total 700 707 650 Output Total 850 1625 800 Balance -150 -918 -150 Weight 100.4 kg 101.2 kg General appearance: PRESENT: no acute distress Eye exam: PRESENT: PERRLA Respiratory exam: PRESENT: clear to auscultation julio Cardiovascular exam: PRESENT: +S1, +S2 GI/Abdominal exam: PRESENT: soft Neurological exam: PRESENT: alert Results Laboratory Results: 07/17/18 05:13 07/16/18 06:27 07/10/18 07/10/18 07/10/18 14:20 14:20 22:05 Creatine Kinase 128 CK-MB (CK-2) 6.74 H 18.30 H Troponin I 5.500 17.200 07/11/18 07/11/18 04:13 10:04 Creatine Kinase CK-MB (CK-2) 14.60 H 18.00 H Troponin I 19.100 15.300 Impressions: Chest X-Ray 07/16/18 00:00 IMPRESSION: Small left pleural effusion with mild pulmonary vascular congestion. copyright 2011 [employer]- All Rights Reserved Guidance Fluoroscopy 07/17/18 00:00 IMPRESSION: SUCCESSFUL PLACEMENT OF A 5 FR DUAL LUMEN 42 CM PICC IN THE RIGHT BASILIC VEIN. Interventional Vascular Procedure 07/17/18 00:00 IMPRESSION: SUCCESSFUL PLACEMENT OF A 5 FR DUAL LUMEN 42 CM PICC IN THE RIGHT BASILIC VEIN. PICC Line Insertion 07/17/18 00:00 IMPRESSION: SUCCESSFUL PLACEMENT OF A 5 FR DUAL LUMEN 42 CM PICC IN THE RIGHT BASILIC VEIN. Assessment & Plan - Diagnosis (1) Non-ST elevated myocardial infarction Is this a current diagnosis for this admission?: Yes (2) Hypotension Qualifiers: Hypotension type: idiopathic hypotension Qualified Code(s): I95.0 - Idiopathic hypotension Is this a current diagnosis for this admission?: Yes (3) Pneumonia Qualifiers: Pneumonia type: due to unspecified organism Laterality: left Lung location: lower lobe of lung Qualified Code(s): J18.1 - Lobar pneumonia, unspecified organism Is this a current diagnosis for this admission?: Yes (4) Acute hypoxemic respiratory failure Is this a current diagnosis for this admission?: Yes (5) E. coli UTI Is this a current diagnosis for this admission?: Yes Plan: Continue antibiotic (6) Pneumonia due to Staphylococcus aureus Is this a current diagnosis for this admission?: Yes Plan: Continue present treatment, (7) Anxiety Is this a current diagnosis for this admission?: Yes Plan: increase buspar 20mg PO BID
[2018-07-18] MEDS: ATORVASTATIN CALCIUM 40 MG TABLET PO SCH (23:08)
[2018-07-19] MEDS: OXYCODONE HCL IR 5 MG TABLET PO PRN ×3 (00:34→21:05)
[2018-07-19] MEDS: OXYCODONE-ACETAMINOPHEN 5-325 MG TABLET PO PRN ×3 (00:35→21:05)
[2018-07-19 09:55] LABS: HEMATOCRIT 32.2 % (36.0-47.0); HEMOGLOBIN 10.8 g/dL (12.0-15.5); MEAN CORPUSCULAR HEMOGLOBIN 31.4 pg (27.0-33.4); MEAN CORPUSCULAR HGB CONC 33.6 g/dL (32.0-36.0); MEAN CORPUSCULAR VOLUME 93 fl (80-97); PLATELET COUNT 293 10^3/uL (150-450); RED BLOOD COUNT 3.44 10^6/uL (3.72-5.28); RED CELL DISTRIBUTION WIDTH 14.3 % (11.5-14.0); WHITE BLOOD COUNT 8.2 10^3/uL (4.0-10.5)
[2018-07-19] MEDS: ENOXAPARIN SODIUM INJ 40 MG/0.4 ML DISP.SYRIN SUBCUT SCH (09:59)
[2018-07-19] MEDS: BUSPIRONE HCL 10 MG TABLET PO SCH ×2 (10:00→21:05)
[2018-07-19] MEDS: DULOXETINE HCL 30 MG CAPSULE.DR PO SCH (10:01)
[2018-07-19] MEDS: METOPROLOL TARTRATE 25 MG TABLET PO SCH (10:03)
[2018-07-19] MEDS: ASPIRIN 81 MG TABLET, ENT COATED PO SCH (10:04)
[2018-07-19] MEDS: PREDNISONE 5 MG TABLET PO SCH (10:06)
[2018-07-19] MEDS: MEMANTINE HCL 10 MG TABLET PO SCH ×2 (10:07→21:05)
[2018-07-19] MEDS: SITAGLIPTIN PHOSPHATE 50 MG TABLET PO SCH (10:07)
[2018-07-19] MEDS: CEFEPIME 1 GM/D5W RTU 1 GM/50 ML RTUPB IV SCH ×2 (10:08→21:04)
[2018-07-19] MEDS: FLUTICASONE/UMECLIDIN/VILANTER 100-62.5-25 MCG/DOSE IH SCH (10:16)
[2018-07-19] MEDS: NORMAL SALINE 10 ML SDV (SCHEDULED) IV SCH ×2 (10:17→21:06)
[2018-07-19] MEDS: IPRATROPIUM/ALBUTEROL 0.5-2.5 MG/3 ML AMPUL NEB PRN ×2 (12:46→16:47)
--- NOTE | 2018-07-19 20:13 | PDOC PROGRESS REPORT ---
Subjective Progress Note for:: 07/19/18 Subjective:: Patient was seen by the bedside, daughter in the room, she will be transferred to a snf in a.m. Reason For Visit: ACUTE NSTMI, UTI, ENCEPHALOPATHY Physical Exam Vital Signs: Temp Pulse Resp BP Pulse Ox 99.1 F 68 16 172/64 H 96 07/19/18 15:15 07/19/18 16:49 07/19/18 16:49 07/19/18 15:15 07/19/18 16:49 Intake & Output 07/18/18 07/19/18 07/20/18 06:59 06:59 06:59 Intake Total 707 700 Output Total 1625 2000 Balance -918 -1300 Weight 101.2 kg 100.7 kg General appearance: PRESENT: no acute distress Eye exam: PRESENT: PERRLA Respiratory exam: PRESENT: clear to auscultation julio Cardiovascular exam: PRESENT: +S1, +S2 GI/Abdominal exam: PRESENT: soft Neurological exam: PRESENT: alert Results Laboratory Results: 07/19/18 06:15 07/16/18 06:27 07/19/18 06:15 WBC 8.2 RBC 3.44 L Hgb 10.8 L Hct 32.2 L MCV 93 MCH 31.4 MCHC 33.6 RDW 14.3 H Plt Count 293 07/10/18 07/10/18 07/10/18 14:20 14:20 22:05 Creatine Kinase 128 CK-MB (CK-2) 6.74 H 18.30 H Troponin I 5.500 17.200 07/11/18 07/11/18 04:13 10:04 Creatine Kinase CK-MB (CK-2) 14.60 H 18.00 H Troponin I 19.100 15.300 Impressions: Chest X-Ray 07/16/18 00:00 IMPRESSION: Small left pleural effusion with mild pulmonary vascular congestion. copyright 2011 [employer]- All Rights Reserved Guidance Fluoroscopy 07/17/18 00:00 IMPRESSION: SUCCESSFUL PLACEMENT OF A 5 FR DUAL LUMEN 42 CM PICC IN THE RIGHT BASILIC VEIN. Interventional Vascular Procedure 07/17/18 00:00 IMPRESSION: SUCCESSFUL PLACEMENT OF A 5 FR DUAL LUMEN 42 CM PICC IN THE RIGHT BASILIC VEIN. PICC Line Insertion 07/17/18 00:00 IMPRESSION: SUCCESSFUL PLACEMENT OF A 5 FR DUAL LUMEN 42 CM PICC IN THE RIGHT BASILIC VEIN. Assessment & Plan - Diagnosis (1) Non-ST elevated myocardial infarction Is this a current diagnosis for this admission?: Yes (2) Hypotension Qualifiers: Hypotension type: idiopathic hypotension Qualified Code(s): I95.0 - Idiopathic hypotension Is this a current diagnosis for this admission?: Yes (3) Pneumonia Qualifiers: Pneumonia type: due to unspecified organism Laterality: left Lung location: lower lobe of lung Qualified Code(s): J18.1 - Lobar pneumonia, unspecified organism Is this a current diagnosis for this admission?: Yes (4) Acute hypoxemic respiratory failure Is this a current diagnosis for this admission?: Yes (5) E. coli UTI Is this a current diagnosis for this admission?: Yes Plan: Continue antibiotic (6) Pneumonia due to Staphylococcus aureus Is this a current diagnosis for this admission?: Yes Plan: Continue present treatment, (7) Anxiety Is this a current diagnosis for this admission?: Yes Plan: continue buspar 20mg PO BID
[2018-07-19] MEDS: ATORVASTATIN CALCIUM 40 MG TABLET PO SCH (21:05)
[2018-07-19 23:41] LABS: APPEARANCE,URINE CLEAR; BILIRUBIN,URINE NEGATIVE (NEGATIVE); COLOR,URINE YELLOW; GLUCOSE, URINE NEGATIVE (NEGATIVE); KETONES,URINE NEGATIVE (NEGATIVE); LEUKOCYTE ESTERASE,URINE NEGATIVE (NEGATIVE); NITRITE,URINE NEGATIVE (NEGATIVE); PROTEIN,URINE NEGATIVE (NEGATIVE); URINE SPECIFIC GRAVITY 1.009; UROBILINOGEN,URINE NEGATIVE mg/dL (<2.0)
[2018-07-20] MEDS: OXYCODONE HCL IR 5 MG TABLET PO PRN ×2 (09:46→15:25)
[2018-07-20] MEDS: CEFEPIME 1 GM/D5W RTU 1 GM/50 ML RTUPB IV SCH (09:47)
[2018-07-20] MEDS: OXYCODONE-ACETAMINOPHEN 5-325 MG TABLET PO PRN ×2 (09:47→15:25)
[2018-07-20] MEDS: BUSPIRONE HCL 10 MG TABLET PO SCH (09:48)
[2018-07-20] MEDS: METOPROLOL TARTRATE 25 MG TABLET PO SCH (09:49)
[2018-07-20] MEDS: DULOXETINE HCL 30 MG CAPSULE.DR PO SCH (09:49)
[2018-07-20] MEDS: ASPIRIN 81 MG TABLET, ENT COATED PO SCH (09:49)
[2018-07-20] MEDS: ENOXAPARIN SODIUM INJ 40 MG/0.4 ML DISP.SYRIN SUBCUT SCH (09:50)
[2018-07-20] MEDS: PREDNISONE 5 MG TABLET PO SCH (09:51)
[2018-07-20] MEDS: SITAGLIPTIN PHOSPHATE 50 MG TABLET PO SCH (09:52)
[2018-07-20] MEDS: NORMAL SALINE 10 ML SDV (SCHEDULED) IV SCH (09:53)
[2018-07-20] MEDS: MEMANTINE HCL 10 MG TABLET PO SCH (09:53)
[2018-07-20] MEDS: FLUTICASONE/UMECLIDIN/VILANTER 100-62.5-25 MCG/DOSE IH SCH (09:53)
--- NOTE | 2018-07-20 11:28 | PDOC TRANSFER SUMMARY ---
General - Admit/Disc Date/PCP Admission Date/Primary Care Provider: 07/10/18 18:55 DENICE MORRIS MD Discharge Date: 07/20/18 - Discharge Diagnosis (1) Non-ST elevated myocardial infarction Is this a current diagnosis for this admission?: Yes (2) Hypotension Is this a current diagnosis for this admission?: Yes (3) Pneumonia Is this a current diagnosis for this admission?: Yes (4) Acute hypoxemic respiratory failure Is this a current diagnosis for this admission?: Yes (5) E. coli UTI Is this a current diagnosis for this admission?: Yes (6) Pneumonia due to Staphylococcus aureus Is this a current diagnosis for this admission?: Yes (7) Anxiety Is this a current diagnosis for this admission?: Yes (8) Acute systolic heart failure Is this a current diagnosis for this admission?: Yes - Additional Information Resuscitation Status: Do Not Resuscitate Discharge Diet: Diabetic Discharge Activity: Activity As Tolerated Prescriptions: Oxycodone HCl/Acetaminophen [Percocet 5-325 mg Tablet] 1 tab PO 5XDP PRN #150 tablet PRN Reason: Sacubitril/Valsartan [Entresto 49 mg/51 mg Tablet] 1 tab PO BID #9999 tablet Home Medications: Albuterol Sulfate [Proair HFA Inhalation Aerosol 8.5 gm MDI] 2 puff IH Q4HP PRN 07/10/18 Ascorbic Acid [Vitamin C 500 mg Tablet] 500 mg PO DAILY 07/10/18 Aspirin [Ecotrin 81 mg EC Tablet] 81 mg PO DAILY 07/10/18 Docusate Sodium [Colace 100 mg Capsule] 100 mg PO BID 07/10/18 Duloxetine HCl [Cymbalta] 60 mg PO DAILY 07/10/18 Fluticasone/Umeclidin/Vilanter [Trelegy 100-62.5-25 Mcg Ellipta 14 Dose/Dpi] 1 puff IH DAILY 07/10/18 Furosemide [Lasix 40 mg Tablet] 40 mg PO QAM 07/10/18 Gabapentin [Neurontin 300 mg Capsule] 300 mg PO Q8 07/10/18 Ipratropium/Albuterol Sulfate [Duoneb 3 ml Ampul] 3 ml NEB Q6HP PRN 07/10/18 Linagliptin [Tradjenta] 5 mg PO DAILY 07/10/18 Loratadine [Claritin 10 mg Tablet] 10 mg PO DAILY 07/10/18 Memantine HCl [Namenda 10 mg Tablet] 10 mg PO BID 07/10/18 Metoprolol Tartrate [Lopressor 25 mg Tablet] 25 mg PO DAILY 07/10/18 Multivitamin [Tab-A-Carey (Multiple Vitamin) Tablet] 1 tab PO DAILY 07/10/18 Oxycodone HCl/Acetaminophen [Percocet 10-325 mg Tablet] 1 tab PO 5XDP PRN 07/10/18 Atorvastatin Calcium [Lipitor 40 mg Tablet] 40 mg PO QHS tablet 07/20/18 Buspirone HCl [Buspar 10 mg Tablet] 20 mg PO Q12 tablet 07/20/18 Ipratropium/Albuterol Sulfate [Duoneb 3 ml Ampul] 3 ml NEB RTQ4HP PRN vial.neb 07/20/18 Oxycodone HCl/Acetaminophen [Percocet 5-325 mg Tablet] 1 tab PO 5XDP PRN #150 t ablet 07/20/18 Prednisone [Deltasone 5 mg Tablet] 2.5 mg PO DAILY tablet 07/20/18 Sacubitril/Valsartan [Entresto 49 mg/51 mg Tablet] 1 tab PO BID #9999 tablet 07/20/18 History of Present Illness Admission Date/PCP: 07/10/18 18:55 DENICE MORRIS MD History of Present Illness: SINAN MONTGOMERY is a 88 year old female, Patient is well-known to me she has multiple comorbid conditions including very severe chronic obstructive lung disease, diabetes mellitus type 2, 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 In the emergency room she was evaluated pneumonia and UTI was suspected the chest x-ray showed possible infiltrate of the left lower lobe the urinalysis was grossly abnormal with pyuria, bacteriuria. 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 She was treated medically with Lovenox 1 mg/kg body weight every 12 hours, Plavix,aspirin, statin, on admission the blood pressure was very low, the blood pressure was stabilized with the bolus of normal saline, the troponin was elevated with ST segment deviation consistent with non-ST MD. She is not a candidate for coronary intervention, she was treated medically. 2D echo was done, it demonstrated dilated left ventricle, ejection fraction of left ventricle was 35% there was moderate global hypokinesis of the left ventricle the Doppler measurement was consistent with grade 1 diastolic dysfunction of the left ventricle. She also had staph aureus pneumonia and E. coli UTI both organisms sensitive to ceftriaxone, she was treated empirically with ceftriaxone on admission because UTI and pneumonia was suspected on the basis of abnormal dipstick urinalysis and a chest x-ray that suggest pneumonia she also had acute COPD exacerbation requiring bronchodilators. She has experienced a sense of doom very anxious, expressing fear of , she was treated with BuSpar with very good results. Initially she was treated with 10 mg of BuSpar 2 times a day this was slowly increased to 20 mg 2 times a day. Patient is much more stabilized she is now expressing desire to return back to assisted. Patient's daughter was satisfied with the care given to her mother, she will be transferred back to assisted today Physical Exam Vital Signs: Temp Pulse Resp BP Pulse Ox 98.4 F 87 16 177/62 H 99 07/20/18 08:21 07/20/18 08:21 07/20/18 08:21 07/20/18 08:21 07/20/18 08:21 Intake & Output 07/19/18 07/20/18 07/21/18 06:59 06:59 06:59 Intake Total 700 340 Output Total 2000 550 Balance -1300 -210 Weight 100.7 kg 98.2 kg General appearance: PRESENT: no acute distress, well-developed, well-nourished Head exam: PRESENT: atraumatic, normocephalic Eye exam: PRESENT: conjunctiva pink, EOMI, PERRLA Ear exam: PRESENT: normal external ear exam Mouth exam: PRESENT: moist, tongue midline Respiratory exam: PRESENT: clear to auscultation julio Cardiovascular exam: PRESENT: RRR, +S1, +S2 Pulses: PRESENT: normal dorsalis pedis pul Vascular exam: PRESENT: normal capillary refill GI/Abdominal exam: PRESENT: normal bowel sounds, soft Rectal exam: PRESENT: deferred Extremities exam: PRESENT: full ROM Neurological exam: PRESENT: alert, CN II-XII grossly intact Psychiatric exam: PRESENT: appropriate affect, normal mood Skin exam: PRESENT: dry, intact, warm Results Laboratory Results: 07/19/18 06:15 07/16/18 06:27 07/19/18 23:25 Urine Color YELLOW Urine Appearance CLEAR Urine pH 6.0 Ur Specific [place] 1.009 Urine Protein NEGATIVE Urine Glucose (UA) NEGATIVE Urine Ketones NEGATIVE Urine Blood NEGATIVE Urine Nitrite NEGATIVE Ur Leukocyte Esterase NEGATIVE Urine WBC (Auto) 3 Urine RBC (Auto) 1 07/10/18 07/10/18 07/10/18 14:20 14:20 22:05 Creatine Kinase 128 CK-MB (CK-2) 6.74 H 18.30 H Troponin I 5.500 17.200 07/11/18 07/11/18 04:13 10:04 Creatine Kinase CK-MB (CK-2) 14.60 H 18.00 H Troponin I 19.100 15.300 Impressions: Chest X-Ray 07/16/18 00:00 IMPRESSION: Small left pleural effusion with mild pulmonary vascular congestion. copyright 2011 [employer]- All Rights Reserved Guidance Fluoroscopy 07/17/18 00:00 IMPRESSION: SUCCESSFUL PLACEMENT OF A 5 FR DUAL LUMEN 42 CM PICC IN THE RIGHT BASILIC VEIN. Interventional Vascular Procedure 07/17/18 00:00 IMPRESSION: SUCCESSFUL PLACEMENT OF A 5 FR DUAL LUMEN 42 CM PICC IN THE RIGHT BASILIC VEIN. PICC Line Insertion 07/17/18 00:00 IMPRESSION: SUCCESSFUL PLACEMENT OF A 5 FR DUAL LUMEN 42 CM PICC IN THE RIGHT BASILIC VEIN. Qualifiers - * PATIENT BEING DISCHARGED WITH ANY OF THE FOLLOWING DIAGNOSIS: Heart Failure, MD VTE patient discharged on overlapping Therapy?: Yes MD Pt being discharged on Aspirin therapy?: Yes MD Pt being discharged on Statins?: Yes MD Pt discharged ACEI/ARBS?: Yes HF Pt being discharged on ACEI for LVEF less than 40%?: Yes HF Pt being discharged on ARBS for LVEF less than 40%?: Yes HF Pt with Afib discharged with Warfarin?: Yes HF Pt discharged on evidence-based Beta Aniket:: Yes
[2018-07-20] MEDS: IPRATROPIUM/ALBUTEROL 0.5-2.5 MG/3 ML AMPUL NEB PRN (12:02)
[2018-07-20] MEDS ORDERED: LORAZEPAM 0.5 MG TABLET PO ONE (16:45)
[2018-07-20 20:52] VITALS: BP 153/54
== END 2018-07-20 19:59 | DRG 280 ==
LOC: ER 14:21 → EH 18:55 → 4W 20:34
PROVIDERS: ADMIT Internal Medicine; ATTEND Internal Medicine
PROC: 02HV33Z Insertion of Infusion Device into Superior Vena Cava, Percutaneous Approach (ICD-10-PCS; principal; 2018-07-17)
DX: I21.4 Non-ST elevation (NSTEMI) myocardial infarction (principal); J15.211 Pneumonia due to Methicillin susceptible Staphylococcus aureus; J96.01 Acute respiratory failure with hypoxia; N39.0 Urinary tract infection, site not specified; I11.0 Hypertensive heart disease with heart failure; I50.9 Heart failure, unspecified; E11.42 Type 2 diabetes mellitus with diabetic polyneuropathy; J44.9 Chronic obstructive pulmonary disease, unspecified; I25.9 Chronic ischemic heart disease, unspecified; Z66 Do not resuscitate; Z99.81 Dependence on supplemental oxygen; D64.9 Anemia, unspecified; Z95.1 Presence of aortocoronary bypass graft; I95.0 Idiopathic hypotension; F41.9 Anxiety disorder, unspecified; M15.9 Polyosteoarthritis, unspecified; I25.10 Atherosclerotic heart disease of native coronary artery without angina pectoris; G89.4 Chronic pain syndrome; E78.5 Hyperlipidemia, unspecified; G47.30 Sleep apnea, unspecified; K21.9 Gastro-esophageal reflux disease without esophagitis; F31.9 Bipolar disorder, unspecified; B96.20 Unspecified Escherichia coli [E. coli] as the cause of diseases classified elsewhere; E66.9 Obesity, unspecified; Z96.641 Presence of right artificial hip joint; I25.2 Old myocardial infarction; Z96.653 Presence of artificial knee joint, bilateral; Z87.01 Personal history of pneumonia (recurrent); Z85.3 Personal history of malignant neoplasm of breast; Z90.11 Acquired absence of right breast and nipple; Z87.891 Personal history of nicotine dependence; Z79.84 Long term (current) use of oral hypoglycemic drugs; Z79.82 Long term (current) use of aspirin; Z79.52 Long term (current) use of systemic steroids; Z83.3 Family history of diabetes mellitus; Z82.49 Family history of ischemic heart disease and other diseases of the circulatory system; Z68.39 Body mass index [BMI] 39.0-39.9, adult
CPT/HCPCS: 36415; 36569; 51702; 71045; 76937; 77001; 80048; 80053; 80061; 81001; 82272; 82550; 82553; 82803; 82962; 83605; 84100; 84484; 85025; 85027; 85610; 85730; 87040; 87070; 87077; 87086; 87088; 87186; 87205; 93005; 93010; 93306; 94640; 96361; 96365; 99291; J0692; J0696; J1642; J1650; J1956; J3490; J7030; J7512; J7620